=== PATIENT | male | born 1945 | race Caucasian/White ===

== ENCOUNTER 2021-01-17 13:46 | Inpatient (IN) ==
[2021-01-17] MEDS ORDERED: FAMOTIDINE 20MG IV PUSH 20 MG/5 ML SYR IV STA (14:22)
[2021-01-17] MEDS ORDERED: PANTOprazole 80 MG in DEXTROSE 5% 100 ML IV ONE (14:22)
--- NOTE | 2021-01-17 14:29 | Emergency Department Note ---
Impression & Plan GI bleed, Rectal bleeding, Weakness, Ureteral stone ED Provider Note NAME: DANGELO CUI AGE: 76 SEX: M : 1945 ARRIVES VIA: Walk-In INFORMANT: [Patient] ED PROVIDER(S): [King Draper MD] CHIEF COMPLAINT: Rectal bleeding HISTORY OF PRESENT ILLNESS: The patient is a 76-year-old male who has had 6 or 7 bouts of rectal bleeding today. He feels like he has to have a bowel movement and it is just blood. He does not have any rectal or abdominal pain. He is not short of breath, no chest pain. The patient has had issues like this before from diverticular bleeding. He has been transfused before but it was multiple years ago. The patient takes aspirin, no other stronger blood thinners. The patient does feel a bit weak. He has not had any fever. No syncope. He was in baseline health yesterday. REVIEW OF SYSTEMS: See HPI for pertinent positives and negatives. A total of ten systems were reviewed and were otherwise negative. PMHx/PSHx: See Below SOCIAL HISTORY: See Below. PHYSICAL EXAM: GENERAL: Patient is in no acute distress. HEENT: No acute trauma, normocephalic atraumatic, mucous membranes moist, no nasal congestion, no scleral icterus. NECK: No stridor, no adenopathy, no meningismus, trachea is midline. LUNGS: Clear to auscultation bilaterally, no wheeze, no rhonchi, breath sounds equal. HEART: Without murmurs gallops or rubs, regular rate and rhythm. ABDOMEN: Soft, nontender, bowel sounds positive, no hernias, no peritonitis. EXTREMITIES: No cyanosis or edema, full range of motion of all the joints without pain or difficulty, no signs for acute trauma. NEUROLOGIC: Oriented x 3, no acute motor or sensory deficits, no focal weakness. SKIN: No rash, no jaundice, no diaphoresis. Rectal: Dark maroon blood per rectum, heme positive, no external source of bleeding. DIFFERENTIAL DIAGNOSIS: Diverticulosis, AVM, coagulopathy, colitis, inflammatory bowel disease, malignancy, Gogo-Vu tear, esophagitis, peptic ulcer disease, variceal bleed, gastritis, epistaxis, fissure, hemorrhoids, as well as other pathologies. EMERGENCY DEPARTMENT COURSE/PROCEDURES: ECG: Indication was GI bleeding and weakness. The ECG shows a normal sinus rhythm with a rate of 64. There is an old anterior infarct. No ST elevation, no PVCs. The QTc is 408. Continuous Cardiac Monitoring: An order was placed for continuous cardiac monitoring. The monitor shows a rate of 77 with normal sinus rhythm. Critical Care Note: I have personally spent 43 minutes of critical care time in the direct management of this patient. This includes bedside care, interpretation of diagnostic studies, and testing, discussion with consultants, patient, and family members, and other required patient management activities. This 43 minutes is in excess of all separately billable procedures. MEDICAL DECISION MAKING: There is no leukocytosis. The patient does have a mild anemia but, the number is not anywhere near the value requiring transfusion. Hemoglobin had dropped 2- 3 points based on his last hemoglobin test. There was a normal platelet count. No coagulopathy. No significant electrolyte abnormality or kidney failure. No concerning liver enzyme elevation. ECG shows a sinus rhythm, no acute ischemia. Cardiac enzyme testing x1 is not consistent with acute cardiac injury. Covid testing returned negative. Abdominal and pelvis CT showed some hydronephrosis from a ureteral stone. No active source for bleeding. No bowel obstruction or acute surgical process by CT imaging. The patient received IV saline, he was given IV Protonix and IV Pepcid. He has been resting comfortably. Patient has dark blood per rectum. He is likely suffering from a lower GI bleed. He has had lower GI bleeding before from diverticuli. Given the findings, given his presentation, a hospital stay is warranted. I did speak with the patient and case management. The on-call hospitalist was consulted. 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 Diabetes mellitus, type 2 Diabetic neuropathy Diverticulitis HLD (hyperlipidemia) HTN (hypertension) Restless leg syndrome Squamous cell carcinoma of nose Surgical History History of total knee arthroplasty Bilateral Status post total shoulder arthroplasty Family History Other No pertinent family history Social History Smoking Status: Never smoker Hx Alcohol Use: Yes Alcohol type: beer Hx Substance Use: No Preferred Language: Lithuanian Communication Ability: Effective Organic Preparation Technician Required: No Beliefs That Will Affect Care: None marital status: Current Living Situation: Spouse Feels Safe at Home: Yes Assistive Devices: Glasses Allergies Allergies Allergy/AdvReac Type Severity Reaction Status Date / Time No Known Allergies Allergy Unverified 01/17/21 15:26 Home Meds Home Medications Medication Instructions Recorded Confirmed atorvastatin 20 mg tablet 40 mg PO HS 12/29/17 01/17/21 gabapentin 300 mg capsule 600 mg PO TID 12/29/17 01/17/21 magnesium oxide 400 mg (241.3 mg 400 mg PO QAM 12/29/17 01/17/21 magnesium) tablet (MgO) metformin 1,000 mg tablet 1,000 mg PO BIDM 12/29/17 01/17/21 metoprolol tartrate 25 mg tablet 12.5 mg PO BID 12/29/17 01/17/21 multivit with minerals-iron 18 1 tab PO QAM 12/29/17 01/17/21 mg-folic ac 400 mcg-vit K 25 mcg tablet (Multi-Day Plus Minerals) omega 7-mdn-lgp-fish oil 1,000 mg 1,000 mg PO BID 12/29/17 01/17/21 (120 mg-180 mg) capsule (Fish Oil) pantoprazole 40 mg tablet,delayed 40 mg PO BID 12/29/17 01/17/21 release (Protonix) pramipexole 0.25 mg tablet 0.25 mg PO HS 12/29/17 01/17/21 sertraline 50 mg tablet 50 mg PO HS 12/29/17 01/17/21 tamsulosin 0.4 mg capsule 0.4 mg PO QPM 12/29/17 01/17/21 insulin glargine 100 unit/mL 15 unit SUBCUT 07/01/19 01/17/21 subcutaneous solution latanoprost 0.005 % eye drops 1 drp OPHTHALMIC (EYE) HS 07/01/19 01/17/21 lisinopril 5 mg tablet 5 mg PO QAM 07/01/19 01/17/21 aspirin 81 mg tablet,delayed 81 mg PO QAM 01/17/21 01/17/21 release rosuvastatin 40 mg tablet 4 mg PO 01/17/21 01/17/21 Results & Data (ED) Vital Signs Vital Signs - 24 hr 01/17/21 13:57 01/17/21 14:22 01/17/21 14:52 Temperature 36.3 C L Temperature Source Oral Pulse Rate 77 61 Pulse Rate [Apical] 59 L Pulse Rhythm Regular Pulse Rhythm [Apical] Regular Pulse Strength [Apical] Normal Respiratory Rate 20 17 17 Respiratory Effort / Characteristics Non-Labored Spontaneous Non-Labored Spontaneous Respiratory Depth Normal Normal Respiratory Pattern Regular Blood Pressure 102/57 L Blood Pressure [Right Arm] 129/59 L Blood Pressure Mean 72 Blood Pressure Mean [Right Arm] 82 Blood Pressure Position Sitting Blood Pressure Position [Right Arm] Semi-fowlers Pulse Oximetry 93 96 96 Oxygen Delivery Method Room Air Room Air Room Air Sepsis Recent Fever Within 48 Hours No Sepsis New/Unexplained Change in Mental Status N/A Sepsis Action Taken by Nursing No Action Required 01/17/21 15:40 Temperature Temperature Source Pulse Rate Pulse Rate [Apical] 53 L Pulse Rhythm Pulse Rhythm [Apical] Pulse Strength [Apical] Respiratory Rate 26 H Respiratory Effort / Characteristics Respiratory Depth Respiratory Pattern Blood Pressure Blood Pressure [Right Arm] 156/64 H Blood Pressure Mean Blood Pressure Mean [Right Arm] 94 Blood Pressure Position Blood Pressure Position [Right Arm] Semi-fowlers Pulse Oximetry 94 Oxygen Delivery Method Room Air Sepsis Recent Fever Within 48 Hours Sepsis New/Unexplained Change in Mental Status Sepsis Action Taken by Care Home Medications Current Medication List: was personally reviewed by me Laboratory Data Attestation: I reviewed the patient's lab results. Result diagrams: 01/17/21 14:38 01/17/21 14:38 Lab Results 01/17/21 01/17/21 01/17/21 Range/Units 14:38 14:38 14:38 WBC 6.67 (4.8-10.8) K/uL RBC 4.16 L (4.7-6.1) M/uL Hgb 13.5 L (14.0-18.0) g/dL Hct 38.7 L (42-52) % MCV 93.0 (80-100) fL MCH 32.5 (25-34) pg MCHC 34.9 (32-36) g/dL RDW Std Deviation 47.0 H (36.4-46.3) fL RDW Coeff of Lachelle 13.9 (11.5-14.5) % Plt Count 175 (130-400) K/uL MPV 10.0 (7.4-10.4) fL Immature Gran % (Auto) 0.1 % Neut % (Auto) 56.4 % Lymph % (Auto) 34.6 % [place] % (Auto) 7.6 % Eos % (Auto) 1.2 % Baso % (Auto) 0.1 % Neut # (Auto) 3.75 (1.4-6.5) K/uL Lymph # (Auto) 2.31 (1.2-3.4) K/uL [place] # (Auto) 0.51 (0.11-0.59) K/uL Eos # (Auto) 0.08 (0-0.5) K/uL Baso # (Auto) 0.01 (0-0.2) K/uL Immature Gran # (Auto) 0.01 (0.00-0.02) K/uL PT 10.9 (9.0-12.0) Seconds INR 1.1 (0.9-1.1) APTT 28.7 (21.0-31.0) Seconds PTT Ratio 1.1 Sodium 141 (136-145) mmol/L Potassium 4.0 (3.5-5.1) mmol/L Chloride 111 H (98-107) mmol/L Carbon Dioxide 22 (21-32) mmol/L Anion Gap 8.0 (3-11) BUN 22 H (7-18) mg/dl Creatinine 0.96 (0.6-1.4) mg/dl Est Cr Clr Drug Dosing 79.5 ml/min Est GFR ( Amer) 89.3 ml/min Est GFR (Non-Af Amer) 77.0 ml/min BUN/Creatinine Ratio 22.9 H (10-20) Glucose 176 H (70-99) mg/dl Calcium 9.3 (8.5-10.1) mg/dl Total Bilirubin 0.6 (0.2-1) mg/dl AST 16 (15-37) U/L ALT 17 (12-78) U/L Alkaline Phosphatase 49 (45-117) U/L Troponin I < 0.015 (0-0.045) ng/ml Total Protein 7.5 (6.4-8.2) gm/dl Albumin 3.7 (3.4-5.0) gm/dl Globulin 3.8 (2.5-4.0) gm/dl Albumin/Globulin Ratio 1.0 (0.9-2) COVID-19 Eval Order SARS-CoV-2 (PCR) (Negative) Blood Type Antibody Screen 01/17/21 01/17/21 01/17/21 Range/Units 14:43 14:50 14:50 WBC (4.8-10.8) K/uL RBC (4.7-6.1) M/uL Hgb (14.0-18.0) g/dL Hct (42-52) % MCV (80-100) fL MCH (25-34) pg MCHC (32-36) g/dL RDW Std Deviation (36.4-46.3) fL RDW Coeff of Lachelle (11.5-14.5) % Plt Count (130-400) K/uL MPV (7.4-10.4) fL Immature Gran % (Auto) % Neut % (Auto) % Lymph % (Auto) % [place] % (Auto) % Eos % (Auto) % Baso % (Auto) % Neut # (Auto) (1.4-6.5) K/uL Lymph # (Auto) (1.2-3.4) K/uL [place] # (Auto) (0.11-0.59) K/uL Eos # (Auto) (0-0.5) K/uL Baso # (Auto) (0-0.2) K/uL Immature Gran # (Auto) (0.00-0.02) K/uL PT (9.0-12.0) Seconds INR (0.9-1.1) APTT (21.0-31.0) Seconds PTT Ratio Sodium (136-145) mmol/L Potassium (3.5-5.1) mmol/L Chloride (98-107) mmol/L Carbon Dioxide (21-32) mmol/L Anion Gap (3-11) BUN (7-18) mg/dl Creatinine (0.6-1.4) mg/dl Est Cr Clr Drug Dosing ml/min Est GFR ( Amer) ml/min Est GFR (Non-Af Amer) ml/min BUN/Creatinine Ratio (10-20) Glucose (70-99) mg/dl Calcium (8.5-10.1) mg/dl Total Bilirubin (0.2-1) mg/dl AST (15-37) U/L ALT (12-78) U/L Alkaline Phosphatase (45-117) U/L Troponin I (0-0.045) ng/ml Total Protein (6.4-8.2) gm/dl Albumin (3.4-5.0) gm/dl Globulin (2.5-4.0) gm/dl Albumin/Globulin Ratio (0.9-2) COVID-19 Eval Order Covid19 at [facility] SARS-CoV-2 (PCR) NEGATIVE (Negative) Blood Type A Positive Antibody Screen NEGATIVE Administered Medications Discontinued Medications Sodium Chloride (Nss) 500 mls @ 999 mls/hr IV .Q31M EVA Stop: 01/17/21 15:00 Last Infusion: 01/17/21 15:54 Dose: 0 mls/hr Documented by: [id number] Admin: 01/17/21 15:10 Dose: 999 mls/hr Documented by: [id number] Pantoprazole Sodium 80 mg/ (Dextrose) 100 mls @ 400 mls/hr IV NOW ONE Stop: 01/17/21 14:36 Last Infusion: 01/17/21 15:25 Dose: 0 mls/hr Documented by: [id number] Admin: 01/17/21 15:05 Dose: 400 mls/hr Documented by: [id number] Famotidine (Pepcid 20mg Iv Push) 20 mg in 5 mls @ 2.5 mls/min IV NOW STA Stop: 01/17/21 14:23 Last Admin: 01/17/21 14:58 Dose: 2.5 mls/min Documented by: [id number] Ioversol (Optiray 320 100ml) 93 ml IV ONCE ONE Stop: 01/17/21 15:28 Last Admin: 01/17/21 15:28 Dose: 93 ml Documented by: [id number] Imaging Data Radiologist's Impression: Abdomen/Pelvis CT 01/17/21 14:22 CT SCAN OF THE ABDOMEN AND PELVIS WITH IV CONTRAST CLINICAL HISTORY: GI bleeding. COMPARISON STUDY: Abdominal CT dated 12/29/2017. TECHNIQUE: Following the IV administration of 93 cc of Optiray 320, CT scan of the abdomen and pelvis is performed from the lung bases to the proximal femora. Images are reviewed in the axial, sagittal, and coronal planes. IV contrast was administered without complication. A dose lowering technique was utilized adhering to the principles of ALARA. CT DOSE: 777.30 mGycm FINDINGS: Lung bases: The heart is normal in size and without pericardial effusion. The coronary arteries are densely calcified. There is a small hiatal hernia. The lung bases are clear noting bibasilar scarring/atelectasis. Liver: The contrast-enhanced liver is normal in size, contour, and attenuation. There is no intrahepatic biliary ductal dilatation. The hepatic veins and portal veins are patent. Gallbladder: The gallbladder is filled with gallstones. There is no CT evidence of acute cholecystitis. Spleen: Normal in size and attenuation. Pancreas: Moderately atrophic and grossly unremarkable. Adrenal glands: Unremarkable. Kidneys: The contrast enhanced kidneys demonstrate mild cortical atrophy. There is a 2.5 x 1.1 x 1.1 cm obstructing calculus in the left proximal ureter seen on image #247. This is located at the level of L3 and causes moderate to severe left-sided hydroureteronephrosis. There are least 2 additional 5 mm nonobstructing calculi in the left lower pole. The kidneys enhance symmetrically. There is no right-sided hydronephrosis. Abdominal vasculature: There is advanced atherosclerotic calcification and mild ectasia of the abdominal aorta. Bowel: Question irregular wall thickening of the distal stomach seen on axial image #131. There is advanced colonic diverticulosis without CT evidence of acute diverticulitis. No bowel obstruction is seen. Mild fecal retention is seen throughout the colon. Duodenal diverticula are incidentally noted. The appendix is well-visualized and normal. Peritoneum: There is no intraperitoneal free air or abdominal ascites. There is a small fat-containing umbilical hernia. Lymphadenopathy: None. Pelvic viscera: The prostate gland is enlarged and heterogeneous noting median lobe hypertrophy. A right inguinal hernia contains a small segment of the bladder. The bladder is otherwise normal as imaged. Skeletal structures: The skeletal structures are osteopenic. There is mild to moderate lumbosacral spondylosis. No lytic or blastic lesions are seen. IMPRESSION: 1. There is a 2.5 cm obstructing calculus in the left proximal ureter. This causes moderate to severe hydroureteronephrosis. 2. Additional small nonobstructing calculi are seen in the left lower pole. 3. Cholelithiasis without CT evidence of acute cholecystitis. 4. Advanced colonic diverticulosis without CT evidence of acute diverticulitis. 5. A right inguinal hernia contains a small segment of the bladder. 6. Question irregular wall thickening of the distal stomach. This is not well assessed by CT and can be further evaluated with endoscopy if clinically warranted. 7. Additional findings as above. ACT 112: Negative or not required by law. Electronically signed by: King Soriano M.D. 01/17/2021 3:48 PM Discharge Plan Visit Data Chief Complaint: Rectal Bleed Stated Complaint: RECTAL BLEEDING ED Provider: King Draper Discharge Problem: GI bleed, Rectal bleeding, Weakness, Ureteral stone Patient Disposition: Admitted As Inpatient Condition: Fair Forms Stand Alone Forms: [facility] Syndiant Prescriptions Prescriptions: No Action pramipexole 0.25 mg Tablet 0.25 mg PO HS RF: 0 atorvastatin 20 mg Tablet 40 mg PO HS RF: 0 tamsulosin 0.4 mg Capsule 0.4 mg PO QPM RF: 0 sertraline 50 mg Tablet 50 mg PO HS RF: 0 magnesium oxide [MgO] 400 mg (241.3 mg magnesium) Tablet 400 mg PO QAM RF: 0 metformin 1,000 mg Tablet 1,000 mg PO BIDM RF: 0 gabapentin 300 mg Capsule 600 mg PO TID RF: 0 metoprolol tartrate 25 mg Tablet 12.5 mg PO BID RF: 0 pantoprazole [Protonix] 40 mg Tablet,Delayed Release (Dr/Ec) 40 mg PO BID RF: 0 omega 1-zro-kqt-fish oil [Fish Oil] 1,000 mg (120 mg-180 mg) Capsule 1,000 mg PO BID RF: 0 Multi-Day Plus Minerals 18 mg iron-400 mcg-25 mcg Tablet 1 tab PO QAM RF: 0 insulin glargine 100 unit/mL Solution 15 unit SUBCUT HS RF: 0 lisinopril 5 mg Tablet 5 mg PO QAM RF: 0 latanoprost 0.005 % Drops 1 drp OPHTHALMIC (EYE) HS RF: 0 aspirin 81 mg Tablet,Delayed Release (Dr/Ec) 81 mg PO QAM RF: 0 rosuvastatin 40 mg tablet 4 mg PO HS RF: 0 Referrals Referrals: Sakshi Barros DO [Primary Care Provider] -
[2021-01-17] MEDS ORDERED: SODIUM CHLORIDE 0.9% 500 ML IV SCH (14:30)
[2021-01-17 14:56] LABS: Basophils # (auto) 0.01 K/uL (0-0.2); Basophils % (auto) 0.1 %; Eosinophils # (auto) 0.08 K/uL (0-0.5); Eosinophils % (auto) 1.2 %; Hematocrit (blood only) 38.7 % (42-52); Hemoglobin 13.5 g/dL (14.0-18.0); Immature Granulocytes # (auto) 0.01 K/uL (0.00-0.02); Immature Granulocytes % (auto) 0.1 %; Lymphocytes # (auto) 2.31 K/uL (1.2-3.4); Lymphocytes % (auto) 34.6 %; Mean Corpuscular Hemoglobin 32.5 pg (25-34); Mean Corpuscular Hgb Conc 34.9 g/dL (32-36); Monocytes # (auto) 0.51 K/uL (0.11-0.59); Monocytes % (auto) 7.6 %; Neutrophils # (auto) 3.75 K/uL (1.4-6.5); Neutrophils % (auto) 56.4 %; Platelet Count 175 K/uL (130-400); RDW Coefficient of Variation 13.9 % (11.5-14.5); Red Blood Count 4.16 M/uL (4.7-6.1); White Blood Count 6.67 K/uL (4.8-10.8)
[2021-01-17 15:13] LABS: INR 1.1 (0.9-1.1); Partial Thromboplastin Ratio 1.1; Partial Thromboplastin Time 28.7 Seconds (21.0-31.0); Prothrombin Time 10.9 Seconds (9.0-12.0)
[2021-01-17 15:15] LABS: Alanine Aminotransferase 17 U/L (12-78); Albumin Level 3.7 gm/dl (3.4-5.0); Aspartate Aminotransferase 16 U/L (15-37); BUN Creatinine Ratio 22.9 (10-20); Blood Urea Nitrogen 22 mg/dl (7-18); Calcium 9.3 mg/dl (8.5-10.1); Carbon Dioxide 22 mmol/L (21-32); Chloride 111 mmol/L (98-107); Creatinine Clr Calc Pharmacy 79.5 ml/min; Est GFR (African American) 89.3 ml/min; Glucose 176 mg/dl (70-99); Sodium 141 mmol/L (136-145)
[2021-01-17 15:20] LABS: Alkaline Phosphatase 49 U/L (45-117); Bilirubin,Total 0.6 mg/dl (0.2-1); Globulin 3.8 gm/dl (2.5-4.0); Total Protein 7.5 gm/dl (6.4-8.2); Troponin I < 0.015 ng/ml (0-0.045)
[2021-01-17] MEDS ORDERED: OPTIRAY 320 100ml IV ONE (15:27)
--- NOTE | 2021-01-17 15:50 | CT Scan Report ---
CT SCAN OF THE ABDOMEN AND PELVIS WITH IV CONTRAST CLINICAL HISTORY: GI bleeding. COMPARISON STUDY: Abdominal CT dated 12/29/2017. TECHNIQUE: Following the IV administration of 93 cc of Optiray 320, CT scan of the abdomen and pelvi s is performed from the lung bases to the proximal femora. Images are reviewed in the axial, sagittal , and coronal planes. IV contrast was administered without complication. A dose lowering technique wa s utilized adhering to the principles of ALARA. CT DOSE: 777.30 mGycm FINDINGS: Lung bases: The heart is normal in size and without pericardial effusion. The coronary arteries are d ensely calcified. There is a small hiatal hernia. The lung bases are clear noting bibasilar scarring/ atelectasis. Liver: The contrast-enhanced liver is normal in size, contour, and attenuation. There is no intrahepa tic biliary ductal dilatation. The hepatic veins and portal veins are patent. Gallbladder: The gallbladder is filled with gallstones. There is no CT evidence of acute cholecystiti s. Spleen: Normal in size and attenuation. Pancreas: Moderately atrophic and grossly unremarkable. Adrenal glands: Unremarkable. Kidneys: The contrast enhanced kidneys demonstrate mild cortical atrophy. There is a 2.5 x 1.1 x 1.1 cm obstructing calculus in the left proximal ureter seen on image #247. This is located at the level of L3 and causes moderate to severe left-sided hydroureteronephrosis. There are least 2 additional 5 mm nonobstructing calculi in the left lower pole. The kidneys enhance symmetrically. There is no righ t-sided hydronephrosis. Abdominal vasculature: There is advanced atherosclerotic calcification and mild ectasia of the abdomi nal aorta. Bowel: Question irregular wall thickening of the distal stomach seen on axial image #131. There is ad vanced colonic diverticulosis without CT evidence of acute diverticulitis. No bowel obstruction is se en. Mild fecal retention is seen throughout the colon. Duodenal diverticula are incidentally noted. T he appendix is well-visualized and normal. Peritoneum: There is no intraperitoneal free air or abdominal ascites. There is a small fat-containin g umbilical hernia. Lymphadenopathy: None. Pelvic viscera: The prostate gland is enlarged and heterogeneous noting median lobe hypertrophy. A ri ght inguinal hernia contains a small segment of the bladder. The bladder is otherwise normal as image d. Skeletal structures: The skeletal structures are osteopenic. There is mild to moderate lumbosacral sp ondylosis. No lytic or blastic lesions are seen. IMPRESSION: 1. There is a 2.5 cm obstructing calculus in the left proximal ureter. This causes moderate to severe hydroureteronephrosis. 2. Additional small nonobstructing calculi are seen in the left lower pole. 3. Cholelithiasis without CT evidence of acute cholecystitis. 4. Advanced colonic diverticulosis without CT evidence of acute diverticulitis. 5. A right inguinal hernia contains a small segment of the bladder. 6. Question irregular wall thickening of the distal stomach. This is not well assessed by CT and can be further evaluated with endoscopy if clinically warranted. 7. Additional findings as above. ACT 112: Negative or not required by law. Electronically signed by: King Soriano M.D. 01/17/2021 3:48 PM
--- NOTE | 2021-01-17 15:54 | History & Physical Report ---
Date of Service January 17, 2021 Assessment & Plan (1) GI bleed: Plan: - Admit to med surg with tele - Likely to be diverticular with the patients history of bleeds in the past - CT abd reviewed showing diverticulosis without diverticulitis, also noted to be a 2.5 cm stone in the left ureter, as well as 2 other less than 5 mm stones. - Hbg stable at 13, monitor H&H q6H, next draw at 2000, no need for transfusion unless drops to 7 or pt is symptomatic - Protonix IV BID - GI consulted - Allow clear liquid diet for now, NSS at 80 ml/hr got 500 cc in the ER. - Covid-19 negative on admission - BP stable at 156/64, pulse high 50s at bedside. No cardiac complaints. (2) Diverticulosis of intestine with bleeding: Plan: - hx of such few years ago where he required blood transfusion, per pt had outpatient colonoscopy at [facility] after that in Dec 2017, unable to access [employer] EMR link currently to see those results. (3) Alberto's esophagus: Plan: - hx of such (4) BPH (benign prostatic hyperplasia): Plan: - cont flomax - Noted CT findings of left sided 2.5 cm ureter stone causing moderate to severe hydroureteronephrosis - Urology consulted for evaluation if needs stent placed. - Cr 0.96 and BUN 22- follow with am labs (5) HTN (hypertension): Plan: - Continue metoprolol 25 mg QAM , lisinopril 5 mg daily, hold baby aspirin (6) HLD (hyperlipidemia): Plan: - Cont rosuvastatin 40 mg daily (7) Diabetes mellitus type 2 with complications: Plan: - Will reduce lantus to 7 U HS tonight while NPO, cover with ISS with accuchecks achs - Check A1C with am labs (8) Diabetic neuropathy: Plan: - Hx of such (9) Restless leg syndrome: Plan: - Cont primapaxel (10) Depression with anxiety: Plan: - cont sertraline DVT ppx: teds, scds CODE: Full Dispo: From home, likely to remain in the hospital x 1-2 days History of Present Illness Primary Care Provider: Sakshi Barros, DO This is a 76-year-old male with PMHx of diverticulitis, GI bleed, Alberto's esophagus, DM type II, HTN, HLD, BPH, diabetic neuropathy, restless leg syndrome, depression with anxiety who presents with acute onset of GI bleeding. He reports he woke this morning and felt that he had a to have a bowel movement, and realized that it was full of grossly dark/bright red blood. Throughout the day he has had 6-7 episodes of this. He reports feeling slightly lightheaded and dizzy prior to coming to the ER however after receiving 500 cc NSS he feels improved now. Denies any changes in his diet. He denies ever having abdominal pain, no nausea or vomiting. He reports no urinary complaints, urine has been clear yellow and without hematuria. No fevers, chills or sweats. He lives at home with his . Patient reports taking all his normally scheduled morning medications today. Last time he ate was breakfast today. Allergies Allergy/AdvReac Type Severity Reaction Status Date / Time No Known Allergies Allergy Unverified 01/17/21 15:26 Home Medications Medication Instructions Recorded Confirmed Type gabapentin 300 mg capsule 600 mg PO TID 12/29/17 01/17/21 History magnesium oxide 400 mg (241.3 mg 400 mg PO QAM 12/29/17 01/17/21 History magnesium) tablet (MgO) metformin 1,000 mg tablet 1,000 mg PO BIDM 12/29/17 01/17/21 History metoprolol tartrate 25 mg tablet 25 mg PO DAILY 12/29/17 01/17/21 History multivit with minerals-iron 18 1 tab PO QAM 12/29/17 01/17/21 History mg-folic ac 400 mcg-vit K 25 mcg tablet (Multi-Day Plus Minerals) omega 4-uyq-coa-fish oil 1,000 mg 1,000 mg PO BID 12/29/17 01/17/21 History (120 mg-180 mg) capsule (Fish Oil) pantoprazole 40 mg tablet,delayed 40 mg PO BID 12/29/17 01/17/21 History release (Protonix) pramipexole 0.25 mg tablet 0.25 mg PO HS 12/29/17 01/17/21 History sertraline 50 mg tablet 50 mg PO HS 12/29/17 01/17/21 History tamsulosin 0.4 mg capsule 0.4 mg PO QPM 12/29/17 01/17/21 History insulin glargine 100 unit/mL 15 unit SUBCUT HS 07/01/19 01/17/21 History subcutaneous solution latanoprost 0.005 % eye drops 1 drp OPHTHALMIC (EYE) HS 07/01/19 01/17/21 History lisinopril 5 mg tablet 5 mg PO QAM 07/01/19 01/17/21 History aspirin 81 mg tablet,delayed 81 mg PO QAM 01/17/21 01/17/21 History release rosuvastatin 40 mg tablet 4 mg PO HS 01/17/21 01/17/21 History Past Med/Surg History Medical History Ablerto's esophagus BPH (benign prostatic hyperplasia) 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 Diabetes mellitus, type 2 Diabetic neuropathy Diverticulitis HLD (hyperlipidemia) HTN (hypertension) Restless leg syndrome Squamous cell carcinoma of nose Surgical History History of total knee arthroplasty Bilateral Status post total shoulder arthroplasty Family History Other No pertinent family history Social History Smoking Status: Never smoker Hx Alcohol Use: Yes Alcohol type: beer Hx Substance Use: No Preferred Language: Cuban Communication Ability: Effective Wireless Internet Installer Required: No Beliefs That Will Affect Care: None marital status: Current Living Situation: Spouse Feels Safe at Home: Yes Assistive Devices: Glasses Review of Systems Review of Systems: Constitutional: No fever, chills, sweats, fatigue or weakness Eyes: No diplopia, no changes in vision ENT: No sore throat, tinnitus, or trouble swallowing Respiratory: No shortness of breath, No dyspnea at rest or on exertion, no cough or sputum Cardiovascular: No chest pain, palpitations, or flutter Abdomen: As per HPI. Bright red blood x6-7 bowel movements, no pain, No constipation, No diarrhea, No nausea, No vomiting Musculoskeletal: No calf pain, No joint pain, No swelling Genitourinary : No dysuria or urinary frequency, No hematuria Neurologic: No numbness/tingling, no difficulty with ambulation, no sensory or motor deficits Psychiatric: No depression or anxiety symptoms Endocrine: No fatigue, No weight changes Integumentary: No itch, No rash Physical Exam Physical Exam: General: awake, alert, no apparent distress Head: Normocephalic, atraumatic ENT: PERRL, EOMI, no pharyngeal exudate, mucous membranes moist Chest: Clear to auscultation, on room air, no adventitious breath sounds Cardiac: Regular rate and rhythm, no murmur, no JVD, normal peripheral pulses, good capillary refill Abdominal: NABS x 4 quadrants, soft, nondistended, nontender to palpation, no rebound or guarding Extremities: Normal inspection, no peripheral edema or erythema, calfs nontender to palpation Psych: Normal mood and affect Neuro: AAO x 3, strength intact bilaterally and rated 5/5, no motor deficits, speech is clear, no peripheral sensory deficits Results & Data Results & Data ([facility]) Vital Signs (Past 12 Hours) Vital Signs Temp Pulse Pulse Resp BP BP Pulse Ox 01/17/21 14:52 59 L 17 129/59 L 96 01/17/21 14:22 61 17 96 01/17/21 13:57 36.3 C L 77 20 102/57 L 93 Diagnostic Findings Abdomen/Pelvis CT 01/17/21 14:22 CT SCAN OF THE ABDOMEN AND PELVIS WITH IV CONTRAST CLINICAL HISTORY: GI bleeding. COMPARISON STUDY: Abdominal CT dated 12/29/2017. TECHNIQUE: Following the IV administration of 93 cc of Optiray 320, CT scan of the abdomen and pelvis is performed from the lung bases to the proximal femora. Images are reviewed in the axial, sagittal, and coronal planes. IV contrast was administered without complication. A dose lowering technique was utilized adhering to the principles of ALARA. CT DOSE: 777.30 mGycm FINDINGS: Lung bases: The heart is normal in size and without pericardial effusion. The coronary arteries are densely calcified. There is a small hiatal hernia. The lung bases are clear noting bibasilar scarring/atelectasis. Liver: The contrast-enhanced liver is normal in size, contour, and attenuation. There is no intrahepatic biliary ductal dilatation. The hepatic veins and portal veins are patent. Gallbladder: The gallbladder is filled with gallstones. There is no CT evidence of acute cholecystitis. Spleen: Normal in size and attenuation. Pancreas: Moderately atrophic and grossly unremarkable. Adrenal glands: Unremarkable. Kidneys: The contrast enhanced kidneys demonstrate mild cortical atrophy. There is a 2.5 x 1.1 x 1.1 cm obstructing calculus in the left proximal ureter seen on image #247. This is located at the level of L3 and causes moderate to severe left-sided hydroureteronephrosis. There are least 2 additional 5 mm nonobstructing calculi in the left lower pole. The kidneys enhance symmetrical ly. There is no right-sided hydronephrosis. Abdominal vasculature: There is advanced atherosclerotic calcification and mild ectasia of the abdominal aorta. Bowel: Question irregular wall thickening of the distal stomach seen on axial image #131. There is advanced colonic diverticulosis without CT evidence of acute diverticulitis. No bowel obstruction is seen. Mild fecal retention is seen throughout the colon. Duodenal diverticula are incidentally noted. The appendix is well-visualized and normal. Peritoneum: There is no intraperitoneal free air or abdominal ascites. There is a small fat-containing umbilical hernia. Lymphadenopathy: None. Pelvic viscera: The prostate gland is enlarged and heterogeneous noting median lobe hypertrophy. A right inguinal hernia contains a small segment of the bladder. The bladder is otherwise normal as imaged. Skeletal structures: The skeletal structures are osteopenic. There is mild to moderate lumbosacral spondylosis. No lytic or blastic lesions are seen. IMPRESSION: 1. There is a 2.5 cm obstructing calculus in the left proximal ureter. This causes moderate to severe hydroureteronephrosis. 2. Additional small nonobstructing calculi are seen in the left lower pole. 3. Cholelithiasis without CT evidence of acute cholecystitis. 4. Advanced colonic diverticulosis without CT evidence of acute diverticulitis. 5. A right inguinal hernia contains a small segment of the bladder. 6. Question irregular wall thickening of the distal stomach. This is not well assessed by CT and can be further evaluated with endoscopy if clinically warranted. 7. Additional findings as above. ACT 112: Negative or not required by law. Electronically signed by: Kign Soriano M.D. 01/17/2021 3:48 PM ECG Additional Comments: 17-JAN-2021 14:20:10 [facility]-EDSTAT ROUTINE RETRIEVAL Normal sinus rhythm Cannot rule out Anterior infarct , age undetermined Abnormal ECG When compared with ECG of 29-DEC-2017 11:31, Borderline Criteria for Anterior infarct now present Confirmed by Daryl Galaviz ([id number]) on 01/17/2021 4:07:15 PM 25mm/s 10mm/mV 150Hz 9.0.9 12SL 241 CARA: 13 Confirmed By: Daryl Galaviz Vent. rate 64 BPM MA interval 172 ms QRS duration 82 ms QT/QTc 396/408 ms Code Status & VTE Plan Code Status Full code Supervising Physician Co-Signing Physician Notes 76-year-old male with past history of diverticular bleed, diverticulitis, Alberto's esophagus, DM type II, HTN, HLD, BPH, diabetic neuropathy, restless leg syndrome, depression with anxiety presented 01/17 with multiple episodes of bright red blood per rectum starting today morning. Consult GI/n.p.o./IV fluids/blood transfusion/trend hemoglobin. GI aware. Upon examination: GENERAL: Alert and oriented x3. NAD, on RA. HEENT: No pallor, no icterus. Pupils equal, round and reactive to light. Oral mucosa moist. NECK: No JVD, no neck masses. HEART: S1 and S2 heard. Regular rate and rhythm. No murmur, no gallop. RESPIRATORY SYSTEM: Normal AP diameter. No accessory muscle use. No wheezing, no crackles. ABDOMEN: Soft, bowel sounds present, discomfort in the lower belly upon deep palpation, no distention. CENTRAL NERVOUS SYSTEM: Alert and oriented x3. No facial droop. Speech is clear. Obeys simple commands. Moves extremities. EXTREMITIES: No edema, no erythema seen. I have seen and examined the patient and have discussed the case with the provider above. I agree with the assessment and plan as stated. (1) GI bleed GI bleed type/associated pathology: diverticulitis Qualified Code(s): K57.93 - Diverticulitis of intestine, part unspecified, without perforation or abscess with bleeding
--- NOTE | 2021-01-17 16:07 | Electrocardiogram Report ---
Test Reason : Blood Pressure : / mmHG Vent. Rate : 064 BPM Atrial Rate : 064 BPM P-R Int : 172 ms QRS Dur : 082 ms QT Int : 396 ms P-R-T Axes : 061 012 078 degrees QTc Int : 408 ms Normal sinus rhythm Cannot rule out Anterior infarct , age undetermined Abnormal ECG When compared with ECG of 29-DEC-2017 11:31, Borderline Criteria for Anterior infarct now present Confirmed by Daryl Galaviz ([id number]) on 01/17/2021 4:07:15 PM Referred By: Confirmed By:Daryl Galaviz
[2021-01-17] MEDS ORDERED: SODIUM CHLORIDE 0.9% 1000ML 1,000 ML IV ONE (18:46)
[2021-01-17 19:08] LABS: Hematocrit (blood only) 32.4 % (42-52); Hemoglobin 11.2 g/dL (14.0-18.0)
[2021-01-17] MEDS ORDERED: SODIUM CHLORIDE 0.9% 250 ML IV PRN (19:11)
--- NOTE | 2021-01-17 20:16 | Communication Note ---
Date of Service: January 17, 2021 Dr. Conway (GI specialist human resources communications manager) requested undersigned to contact [facility] to transfer patient for potential need for Interventional Radiology services for patient's LGIB likely secondary to diverticular bleed. Dr. Conway recommends GoLYTELY prep for possible colonoscopy in a.m. if patient not transferred. Case discussed with Dr. Wilcox ([facility] [place] communications manager[place] She does not feel patient transfer warranted for now. Recommends colonoscopy at [facility] in a.m. as discussed with Dr. Conway. Patient updated of plan of care.
[2021-01-17] MEDS ORDERED: ONDANSETRON INJ 2 MG/ML 2 ML VIAL IV PRN (21:19)
[2021-01-17] MEDS ORDERED: GLUCOSE 10 TABS/TUBE PO PRN (21:19)
[2021-01-17] MEDS ORDERED: DEXTROSE 50% 50 ML SYRINGE IV PRN (21:19)
[2021-01-17] MEDS ORDERED: GLUCAGON FOR INJ 1 MG VIAL SQ PRN (21:19)
[2021-01-17] MEDS ORDERED: GLUCOSE 40% GEL 15 GM TUBE PO PRN (21:19)
[2021-01-17] MEDS ORDERED: CARBOHYDRATES FOR HYPOGLYCEMIA PO PRN (21:19)
[2021-01-17] MEDS ORDERED: LAVAGE SOLUTION 4000ML PO SCH (22:00)
[2021-01-17] MEDS: INSULIN ASPART 100 UNITS/ML 3 ML PEN SC SCH (22:06)
[2021-01-17] MEDS: LATANOPROST 0.005% OP SOLN 2.5 ML BTL OP SCH (22:20)
[2021-01-17] MEDS: PRAMIPEXOLE DIHYDROCHLO 0.25 MG TAB PO SCH (22:20)
[2021-01-17] MEDS: INSULIN GLARGINE SOLOSTAR 100 UNITS/ML 3 ML PEN SQ SCH (22:20)
[2021-01-17] MEDS: PANTOprazole 40 MG in SYRINGE 0 ML IV SCH (22:20)
[2021-01-17] MEDS: SODIUM CHLORIDE 0.9% 1000ML 1,000 ML IV SCH (22:29)
--- NOTE | 2021-01-17 23:37 | Emergency Department Note ---
Impression & Plan GI bleed, Rectal bleeding, Weakness, Ureteral stone, Acute hypotension ED Provider Note NAME: DANGELO CUI AGE: 76 SEX: M : 1945 ARRIVES VIA: Walk-In INFORMANT: Patient ED PROVIDER(S): Brice Porras DO CHIEF COMPLAINT: Acut Gi bleed HPI: Patient is a 76-year-old male who presented to the ER for dark blood per rectum associate with bright red blood which started this morning. He was initially seen and evaluated by Dr. Draper. He had a CT and blood work performed and was admitted to the hospitalist. While the patient was resting in the ER and admitted to the hospital service and was notified by the nurse that Dr. Conway was on the phone Keira And wanted to speak with a doctor. At this point I was informed that the patient was hypotensive and had been hypotensive for nearly an hour with systolic pressures in the 70s to 80s. ROS: See above HPI for pertinent positives & negatives. A total of 10 systems reviewed and were otherwise negative. PAST MEDICAL HISTORY:See Below PAST SURGICAL HISTORY:See Below FAMILY HISTORY:See Below SOCIAL HISTORY:See Below HOME MEDICATIONS:See Below ALLERGIES:See Below VITALS:See Below PHYSICAL EXAMINATION: GENERAL: Lying in bed, ill-appearing, disheveled, pale EYE EXAM: normal conjunctiva. OROPHARYNX: mucous membranes are dry NECK: supple, no nuchal rigidity, no adenopathy, non-tender LUNGS: Clear to auscultation. Normal chest wall mechanics HEART: no murmurs, S1 normal and S2 normal ABDOMEN: abdomen soft, non-tender, normo-active bowel sounds, no masses, no rebound or guarding. UPPER EXTREMITIES: upper extremities are grossly normal. LOWER EXTREMITIES: No pitting edema. NEURO EXAM: Normal sensorium, cranial nerves II-XII grossly intact, normal speech, no gross weakness of arms, no gross weakness of legs. MEDICAL DECISION MAKING: Keira called GI per the request of Dr. Valadez from the hospitalist service to see if they wanted to do anything differently. Dr. Conway recommended transferring for possible IR if possible. Did not believe he would scope at this time as the patient was too unstable. At this point I evaluate the patient at bedside please see my exam. Hospitalist was called overhead emergently to the bedside. They placed another 18-gauge IV. Unable to obtain any additional IVs. Patient was bleeding every 15 minutes with large bloody bowel movements. patient at this time had 220s and 118. We called down for emergent uncrossed blood. I placed the order to transfuse. Patient had a large bloody bowel movement and nearly passed out. Pressures remained in the 80s even after a bolus of IV fluids. Patient was taken emergently to a 1. Did discuss with Dr. Valadez and eventually Dr. Suarez present at the bedside. They both spoke with Dr. Conway. They called [facility] to transfer. I placed a central line in the right groin. Pat ient was given 2 and half units of PRBCs while in the ER. Only anticoagulation was aspirin. Pressures trended out of the 80s to the low 100s. He stabilized. They eventually decided per nursing to keep him here. I did also attempt to notify the ICU but they were in a code when this occurred. Triage Nursing notes reviewed. Limited review of prior medical records performed Vital Signs: reviewed and remarkable for hypotension ER treatment provided: See below Diagnostics interpreted by me: Laboratory studies: As stated above and show below. Imaging studies: See below Consultation(s): Discussed with Dr. Conway as stated above as well as Dr. Valadez and Dr. Suarez both presented to bedside. Procedures: PROCEDURE NOTE - Central Line Insertion - Ultrasound Guided PRIOR TO PROCEDURE: Consent: Discussion was PT held with the patient concerning central line. The risks and benefits were explained with possible risks to include bleeding, pain, pneumothorax, hemothorax, pulmonary contusion, pulmonary laceration, and infection. The patient freely consented. The patient was evaluated prior to the procedure. The patient was identified and the procedure verified as central line insertion. A Time Out was held and the following information confirmed. Verify Correct Patient: Yes Verify Correct Site: Yes Availability of Necessary Equipment: Yes PROCEDURE NOTE: Procedure: Central Line Inserting Clinician: Brice Porras DO. Guide-wire was removed, examined and is intact Complication/Corrective Action: none Estimated Blood Loss: 5 mls US guided line placement: Yes I have reviewed and educated the patient and or family regarding the benefits and risks of central line insertion, and I have reviewed the potential complications including infection - yes CENTRAL LINE BUNDLE: Skin Prep: Chlorhexidine/alcohol Barriers Used: Mask: yes Sterile gown: yes Large sterile drape: yes Cap: yes Sterile gloves: yes Insertion Status: new site Indications - include all that apply: Hypotensive GI bleed Placement Conditions: Emergent Site: Femoral Side: R Number of lumen(s): 3 Length of catheter inserted into patient: 18 centimeters Anesthesia: local Number of Needle Passes: 1 Radiological confirmation: Yes I performed the procedure. Critical Care: I have personally spent 80 minutes of critical care time in the direct management of this patient. This includes bedside care, interpretation of diagnostic studies, and testing, discussion with consultants, patient, and family members, and other required patient management activities. This 80 minutes is in excess of all separately billable procedures. Past Med/Surg History Medical History (Updated 01/17/21 @ 23:36 by Dung Gamble PA-C) Alberto's esophagus BPH (benign prostatic hyperplasia) 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 Diabetes mellitus, type 2 Diabetic neuropathy Diverticulitis HLD (hyperlipidemia) HTN (hypertension) Restless leg syndrome Squamous cell carcinoma of nose Surgical History History of total knee arthroplasty Bilateral Status post total shoulder arthroplasty Family History Other No pertinent family history Social History Smoking Status: Former smoker Smoking End Date: 1989; Second Hand Exposure: No; Tobacco Cessation Education Requested by Patient: No Hx Alcohol Use: Yes Alcohol type: beer Hx Substance Use: No Preferred Language: Danish Communication Ability: Effective Quality Assurance Consultant Required: No Beliefs That Will Affect Care: None marital status: Current Living Situation: Spouse Other Information That Helps Us Care for You: No Feels Safe at Home: Yes Safety Concerns: Feels Safe At This Time Assistive Devices: Glasses Allergies Allergies Allergy/AdvReac Type Severity Reaction Status Date / Time No Known Allergies Allergy Unverified 01/17/21 15:26 Home Meds Home Medications Medication Instructions Recorded Confirmed gabapentin 300 mg capsule 600 mg PO TID 12/29/17 01/17/21 magnesium oxide 400 mg (241.3 mg 400 mg PO QAM 12/29/17 01/17/21 magnesium) tablet (MgO) metformin 1,000 mg tablet 1,000 mg PO BIDM 12/29/17 01/17/21 metoprolol tartrate 25 mg tablet 25 mg PO DAILY 12/29/17 01/17/21 multivit with minerals-iron 18 1 tab PO QAM 12/29/17 01/17/21 mg-folic ac 400 mcg-vit K 25 mcg tablet (Multi-Day Plus Minerals) omega 5-olp-wyh-fish oil 1,000 mg 1,000 mg PO BID 12/29/17 01/17/21 (120 mg-180 mg) capsule (Fish Oil) pantoprazole 40 mg tablet,delayed 40 mg PO BID 12/29/17 01/17/21 release (Protonix) pramipexole 0.25 mg tablet 0.25 mg PO HS 12/29/17 01/17/21 sertraline 50 mg tablet 50 mg PO HS 12/29/17 01/17/21 tamsulosin 0.4 mg capsule 0.4 mg PO QPM 12/29/17 01/17/21 insulin glargine 100 unit/mL 15 unit SUBCUT HS 07/01/19 01/17/21 subcutaneous solution latanoprost 0.005 % eye drops 1 drp OPHTHALMIC (EYE) HS 07/01/19 01/17/21 lisinopril 5 mg tablet 5 mg PO QAM 07/01/19 01/17/21 aspirin 81 mg tablet,delayed 81 mg PO QAM 01/17/21 01/17/21 release rosuvastatin 40 mg tablet 4 mg PO HS 01/17/21 01/17/21 Results & Data (ED) Vital Signs Vital Signs - 24 hr 01/17/21 13:57 01/17/21 14:22 01/17/21 14:52 Temperature 36.3 C L Temperature Source Oral Pulse Rate 77 61 Pulse Rate [Apical] 59 L Pulse Rhythm Regular Pulse Rhythm [Apical] Regular Pulse Strength [Apical] Normal Respiratory Rate 20 17 17 Respiratory Effort / Characteristics Non-Labored Spontaneous Non-Labored Spontaneous Respiratory Depth Normal Normal Respiratory Pattern Regular Blood Pressure 102/57 L Blood Pressure [Right Arm] 129/59 L Blood Pressure Mean 72 Blood Pressure Mean [Right Arm] 82 Blood Pressure Position Sitting Blood Pressure Position [Right Arm] Semi-fowlers Pulse Oximetry 93 96 96 Oxygen Delivery Method Room Air Room Air Room Air Sepsis Recent Fever Within 48 Hours No Sepsis New/Unexplained Change in Mental Status N/A Sepsis Action Taken by Nursing No Action Required 01/17/21 15:40 01/17/21 17:07 Temperature Temperature Source Pulse Rate Pulse Rate [Apical] 53 L 62 Pulse Rhythm Pulse Rhythm [Apical] Pulse Strength [Apical] Respiratory Rate 26 H 15 Respiratory Effort / Characteristics Respiratory Depth Respiratory Pattern Blood Pressure Blood Pressure [Right Arm] 156/64 H 136/71 Blood Pressure Mean Blood Pressure Mean [Right Arm] 94 92 Blood Pressure Position Blood Pressure Position [Right Arm] Semi-fowlers Semi-fowlers Pulse Oximetry 94 94 Oxygen Delivery Method Room Air Room Air Sepsis Recent Fever Within 48 Hours Sepsis New/Unexplained Change in Mental Status Sepsis Action Taken by Nursing Laboratory Data Result diagrams: 01/17/21 18:59 01/17/21 14:38 Lab Results 01/17/21 01/17/21 01/17/21 Range/Units 14:38 14:38 14:38 WBC 6.67 (4.8-10.8) K/uL RBC 4.16 L (4.7-6.1) M/uL Hgb 13.5 L (14.0-18.0) g/dL Hct 38.7 L (42-52) % MCV 93.0 (80-100) fL MCH 32.5 (25-34) pg MCHC 34.9 (32-36) g/dL RDW Std Deviation 47.0 H (36.4-46.3) fL RDW Coeff of Lachelle 13.9 (11.5-14.5) % Plt Count 175 (130-400) K/uL MPV 10.0 (7.4-10.4) fL Immature Gran % (Auto) 0.1 % Neut % (Auto) 56.4 % Lymph % (Auto) 34.6 % [place] % (Auto) 7.6 % Eos % (Auto) 1.2 % Baso % (Auto) 0.1 % Neut # (Auto) 3.75 (1.4-6.5) K/uL Lymph # (Auto) 2.31 (1.2-3.4) K/uL [place] # (Auto) 0.51 (0.11-0.59) K/uL Eos # (Auto) 0.08 (0-0.5) K/uL Baso # (Auto) 0.01 (0-0.2) K/uL Immature Gran # (Auto) 0.01 (0.00-0.02) K/uL PT 10.9 (9.0-12.0) Seconds INR 1.1 (0.9-1.1) APTT 28.7 (21.0-31.0) Seconds PTT Ratio 1.1 Sodium 141 (136-145) mmol/L Potassium 4.0 (3.5-5.1) mmol/L Chloride 111 H (98-107) mmol/L Carbon Dioxide 22 (21-32) mmol/L Anion Gap 8.0 (3-11) BUN 22 H (7-18) mg/dl Creatinine 0.96 (0.6-1.4) mg/dl Est Cr Clr Drug Dosing 79.5 ml/min Est GFR ( Amer) 89.3 ml/min Est GFR (Non-Af Amer) 77.0 ml/min BUN/Creatinine Ratio 22.9 H (10-20) Glucose 176 H (70-99) mg/dl Calcium 9.3 (8.5-10.1) mg/dl Total Bilirubin 0.6 (0.2-1) mg/dl AST 16 (15-37) U/L ALT 17 (12-78) U/L Alkaline Phosphatase 49 (45-117) U/L Troponin I < 0.015 (0-0.045) ng/ml Total Protein 7.5 (6.4-8.2) gm/dl Albumin 3.7 (3.4-5.0) gm/dl Globulin 3.8 (2.5-4.0) gm/dl Albumin/Globulin Ratio 1.0 (0.9-2) COVID-19 Eval Order SARS-CoV-2 (PCR) (Negative) Blood Type Antibody Screen Crossmatch 01/17/21 01/17/21 01/17/21 Range/Units 14:43 14:50 14:50 WBC (4.8-10.8) K/uL RBC (4.7-6.1) M/uL Hgb (14.0-18.0) g/dL Hct (42-52) % MCV (80-100) fL MCH (25-34) pg MCHC (32-36) g/dL RDW Std Deviation (36.4-46.3) fL RDW Coeff of Lachelle (11.5-14.5) % Plt Count (130-400) K/uL MPV (7.4-10.4) fL Immature Gran % (Auto) % Neut % (Auto) % Lymph % (Auto) % [place] % (Auto) % Eos % (Auto) % Baso % (Auto) % Neut # (Auto) (1.4-6.5) K/uL Lymph # (Auto) (1.2-3.4) K/uL [place] # (Auto) (0.11-0.59) K/uL Eos # (Auto) (0-0.5) K/uL Baso # (Auto) (0-0.2) K/uL Immature Gran # (Auto) (0.00-0.02) K/uL PT (9.0-12.0) Seconds INR (0.9-1.1) APTT (21.0-31.0) Seconds PTT Ratio Sodium (136-145) mmol/L Potassium (3.5-5.1) mmol/L Chloride (98-107) mmol/L Carbon Dioxide (21-32) mmol/L Anion Gap (3-11) BUN (7-18) mg/dl Creatinine (0.6-1.4) mg/dl Est Cr Clr Drug Dosing ml/min Est GFR ( Amer) ml/min Est GFR (Non-Af Amer) ml/min BUN/Creatinine Ratio (10-20) Glucose (70-99) mg/dl Calcium (8.5-10.1) mg/dl Total Bilirubin (0.2-1) mg/dl AST (15-37) U/L ALT (12-78) U/L Alkaline Phosphatase (45-117) U/L Troponin I (0-0.045) ng/ml Total Protein (6.4-8.2) gm/dl Albumin (3.4-5.0) gm/dl Globulin (2.5-4.0) gm/dl Albumin/Globulin Ratio (0.9-2) COVID-19 Eval Order Covid19 at [facility] SARS-CoV-2 (PCR) NEGATIVE (Negative) Blood Type A Positive Antibody Screen NEGATIVE Crossmatch See Detail Administered Medications Sodium Chloride (Nss 1000ml) 1,000 mls @ 80 mls/hr IV .[id number] EVA Stop: 01/18/21 22:18 Last Admin: 01/17/21 22:29 Dose: 80 mls/hr Documented by: [id number] Pantoprazole Sodium 40 mg/ (Syringe) 10 mls @ 5 mls/min IV BID EVA Stop: 02/16/21 21:18 Last Admin: 01/17/21 22:20 Dose: 5 mls/min Documented by: [id number] Insulin Aspart (Insulin Aspart 100 Units/Ml 3 Ml Pen) 0 units SC ACHS EVA Stop: 02/16/21 21:18 Last Admin: 01/17/21 22:06 Dose: Not Given Documented by: [id number] Insulin Glargine (Insulin Glargine Solostar 100 Units/Ml 3 Ml Pen) 7 units SQ HS [facility] Stop: 02/16/21 20:59 Last Admin: 01/17/21 22:20 Dose: 7 units Documented by: [id number] Cosigned by: [id number] Latanoprost (Latanoprost 0.005% Op Soln 2.5 Ml Btl) 1 drops OP HS [facility] Stop: 02/16/21 21:18 Last Admin: 01/17/21 22:20 Dose: 1 drops Documented by: [id number] Polyethylene Glycol/Electrolytes (Lavage Solution 4000ml) 1 dose PO TODAY@2200 [facility] Stop: 01/18/21 16:00 Last Admin: 01/17/21 22:36 Dose: 1 dose Documented by: [id number] Pramipexole Dihydrochloride (Pramipexole Dihydrochlo 0.25 Mg Tab) 0.25 mg PO HS EVA Stop: 02/16/21 21:18 Last Admin: 01/17/21 22:20 Dose: 0.25 mg Documented by: [id number] Discontinued Medications Sodium Chloride (Nss) 500 mls @ 999 mls/hr IV .Q31M EVA Stop: 01/17/21 15:00 Last Infusion: 01/17/21 15:54 Dose: 0 mls/hr Documented by: [id number] Admin: 01/17/21 15:10 Dose: 999 mls/hr Documented by: [id number] Pantoprazole Sodium 80 mg/ (Dextrose) 100 mls @ 400 mls/hr IV NOW ONE Stop: 01/17/21 14:36 Last Infusion: 01/17/21 15:25 Dose: 0 mls/hr Documented by: [id number] Admin: 01/17/21 15:05 Dose: 400 mls/hr Documented by: [id number] Famotidine (Pepcid 20mg Iv Push) 20 mg in 5 mls @ 2.5 mls/min IV NOW STA Stop: 01/17/21 14:23 Last Admin: 01/17/21 14:58 Dose: 2.5 mls/min Documented by: [id number] Sodium Chloride (Nss 1000ml) 1,000 mls @ 999 mls/hr IV .Q1H1M ONE Stop: 01/17/21 19:46 Last Infusion: 01/17/21 20:00 Dose: 0 mls/hr Documented by: [id number] Admin: 01/17/21 18:59 Dose: 999 mls/hr Documented by: [id number] Ioversol (Optiray 320 100ml) 93 ml IV ONCE ONE Stop: 01/17/21 15:28 Last Admin: 01/17/21 15:28 Dose: 93 ml Documented by: [id number] Imaging Data Radiologist's Impression: Abdomen/Pelvis CT 01/17/21 14:22 CT SCAN OF THE ABDOMEN AND PELVIS WITH IV CONTRAST CLINICAL HISTORY: GI bleeding. COMPARISON STUDY: Abdominal CT dated 12/29/2017. TECHNIQUE: Following the IV administration of 93 cc of Optiray 320, CT scan of the abdomen and pelvis is performed from the lung bases to the proximal femora. Images are reviewed in the axial, sagittal, and coronal planes. IV contrast was administered without complication. A dose lowering technique was utilized adhering to the principles of ALARA. CT DOSE: 777.30 mGycm FINDINGS: Lung bases: The heart is normal in size and without pericardial effusion. The coronary arteries are densely calcified. There is a small hiatal hernia. The lung bases are clear noting bibasilar scarring/atelectasis. Liver: The contrast-enhanced liver is normal in size, contour, and attenuation. There is no intrahepatic biliary ductal dilatation. The hepatic veins and portal veins are patent. Gallbladder: The gallbladder is filled with gallstones. There is no CT evidence of acute cholecystitis. Spleen: Normal in size and attenuation. Pancreas: Moderately atrophic and grossly unremarkable. Adrenal glands: Unremarkable. Kidneys: The contrast enhanced kidneys demonstrate mild cortical atrophy. There is a 2.5 x 1.1 x 1.1 cm obstructing calculus in the left proximal ureter seen on image #247. This is located at the level of L3 and causes moderate to severe left-sided hydroureteronephrosis. There are least 2 additional 5 mm nonobstructing calculi in the left lower pole. The kidneys enhance symmetrically. There is no right-sided hydronephrosis. Abdominal vasculature: There is advanced atherosclerotic calcification and mild ectasia of the abdominal aorta. Bowel: Question irregular wall thickening of the distal stomach seen on axial image #131. There is advanced colonic diverticulosis without CT evidence of acute diverticulitis. No bowel obstruction is seen. Mild fecal retention is seen throughout the colon. Duodenal diverticula are incidentally noted. The appendix is well-visualized and normal. Peritoneum: There is no intraperitoneal free air or abdominal ascites. There is a small fat-containing umbilical hernia. Lymphadenopathy: None. Pelvic viscera: The prostate gland is enlarged and heterogeneous noting median lobe hypertrophy. A right inguinal hernia contains a small segment of the bladder. The bladder is otherwise normal as imaged. Skeletal structures: The skeletal structures are osteopenic. There is mild to moderate lumbosacral spondylosis. No lytic or blastic lesions are seen. IMPRESSION: 1. There is a 2.5 cm obstructing calculus in the left proximal ureter. This causes moderate to severe hydroureteronephrosis. 2. Additional small nonobstructing calculi are seen in the left lower pole. 3. Cholelithiasis without CT evidence of acute cholecystitis. 4. Advanced colonic diverticulosis without CT evidence of acute diverticulitis. 5. A right inguinal hernia contains a small segment of the bladder. 6. Question irregular wall thickening of the distal stomach. This is not well assessed by CT and can be further evaluated with endoscopy if clinically warranted. 7. Additional findings as above. ACT 112: Negative or not required by law. Electronically signed by: King Soriano M.D. 01/17/2021 3:48 PM Discharge Plan Visit Data Chief Complaint: Rectal Bleed Stated Complaint: RECTAL BLEEDING ED Provider: Brice Porras Discharge Problem: GI bleed, Rectal bleeding, Weakness, Ureteral stone, Acute hypotension Patient Disposition: Admitted As Inpatient Condition: Fair Discharge Instructions Interventions: ED Discharge Assessment Last Done: 01/17/21 20:52
--- NOTE | 2021-01-17 23:38 | Urology Consultation ---
Date of Consultation January 17, 2021 Assessment & Plan (1) Nephrolithiasis: Patient has been admitted by the hospital secondary to GI bleed. Patient is currently in the process of undergoing a bowel prep as bedside RN reports that plans are in place for patient undergo colonoscopy tomorrow. The kidney stone identified on CT scan appears to be an incidental finding as the patient has no pain from this. There is no evidence of leukocytosis suggesting an infection. There is no evidence of acute kidney injury. At the present time no acute intervention will be undertaken for patient's kidney stone until his GI bleed has been further evaluated and addressed. It would be prudent however to check a urinalysis and strain all urine and save any kidney stones retrieved for appropriate analysis. Supervising Physician Co-Signing Physician Notes Reviewed patient, labs, imaging and plan. Agree with above. Large obstructing stone in left proximal ureter, however patient is asymptomatic and has no concern for infection. Creatinine appears stable. GI bleeding more pressing issue currently. Likely would be best served by referral for left PCNL once stabilized from GI perspective. History of Present Illness Reason for Consultation: Nephrolithiasis Attending Physician: Eleuterio Valadez MD History of Present Illness Is a 76-year-old male who was admitted to the hospital secondary to bright red blood per rectum. Patient notes earlier today he had 6-7 episodes of this. Associated symptoms include lightheadedness and dizziness. Denies any nausea or vomiting. He also denies any abdominal pain. He denies any fevers, shakes, chills. He denies any chest pain. The patient was subsequently admitted due to concern for GI bleed. As part of his evaluation he did have a CT scan of the abdomen identifying kidney stone as listed below. For this reason urology has been consulted. Concerning patient's kidney stone patient denies any flank pain. He does report back pain but does report that this is a chronic problem. He denies any difficulty urinating. He denies any dysuria or hematuria. Since admission to the hospital the patient has had a CT scan of the abdomen and pelvis. CT scanning identified a 2.5 cm obstructing calculus in the left proximal ureter which was causing moderate to severe hydronephrosis. Labs consisted of CBC were white blood cell count and platelet count were both noted to be normal. Initial hemoglobin was 13.5 but this is since dropped to 11.2 on subsequent labs. Coagulation studies showed INR was within the normal range. Chemistry profile showed sodium and potassium were both normal. Patient had a slight elevation of his BUN at 20. Creatinine was noted to be within the normal range. A Covid test was performed and was noted to be negative. At the time of interview the patient was resting in bed. He was in no distress but did appear fatigued. Allergies Allergy/AdvReac Type Severity Reaction Status Date / Time No Known Allergies Allergy Unverified 01/17/21 15:26 Home Medications Medication Instructions Recorded Confirmed Type gabapentin 300 mg capsule 600 mg PO TID 12/29/17 01/17/21 History magnesium oxide 400 mg (241.3 mg 400 mg PO QAM 12/29/17 01/17/21 History magnesium) tablet (MgO) metformin 1,000 mg tablet 1,000 mg PO BIDM 12/29/17 01/17/21 History metoprolol tartrate 25 mg tablet 25 mg PO DAILY 12/29/17 01/17/21 History multivit with minerals-iron 18 1 tab PO QAM 12/29/17 01/17/21 History mg-folic ac 400 mcg-vit K 25 mcg tablet (Multi-Day Plus Minerals) omega 8-cpf-lxl-fish oil 1,000 mg 1,000 mg PO BID 12/29/17 01/17/21 History (120 mg-180 mg) capsule (Fish Oil) pantoprazole 40 mg tablet,delayed 40 mg PO BID 12/29/17 01/17/21 History release (Protonix) pramipexole 0.25 mg tablet 0.25 mg PO HS 12/29/17 01/17/21 History sertraline 50 mg tablet 50 mg PO HS 12/29/17 01/17/21 History tamsulosin 0.4 mg capsule 0.4 mg PO QPM 12/29/17 01/17/21 History insulin glargine 100 unit/mL 15 unit SUBCUT HS 07/01/19 01/17/21 History subcutaneous solution latanoprost 0.005 % eye drops 1 drp OPHTHALMIC (EYE) HS 07/01/19 01/17/21 History lisinopril 5 mg tablet 5 mg PO QAM 07/01/19 01/17/21 History aspirin 81 mg tablet,delayed 81 mg PO QAM 01/17/21 01/17/21 History release rosuvastatin 40 mg tablet 4 mg PO HS 01/17/21 01/17/21 History Patient History Medical History (Updated 01/18/21 @ 07:55 by DAISY Crabtree) Alberto's esophagus BPH (benign prostatic hyperplasia) 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 Diabetes mellitus, type 2 Diabetic neuropathy Diverticulitis HLD (hyperlipidemia) HTN (hypertension) Restless leg syndrome Squamous cell carcinoma of nose Surgical History History of total knee arthroplasty Bilateral Status post total shoulder arthroplasty Family History Other No pertinent family history Social History Smoking Status: Former smoker Smoking End Date: 1989; Second Hand Exposure: No; Tobacco Cessation Education Requested by Patient: No Hx Alcohol Use: Yes Alcohol type: beer Hx Substance Use: No Preferred Language: Kinyarwanda Communication Ability: Effective Hydramatic Mechanic Required: No Beliefs That Will Affect Care: None marital status: Current Living Situation: Spouse Other Information That Helps Us Care for You: No Feels Safe at Home: Yes Safety Concerns: Feels Safe At This Time Assistive Devices: None Review of Systems Constitutional: no fever and no chills Eyes: + corrective lenses Ear, Nose, Mouth, Throat: no ear pain Respiratory: no cough and no dyspnea Cardiovascular: no chest pain Gastrointestinal: + blood in stools; no abdominal pain Genitourinary: no dysuria, no hematuria or no flank pain Musculoskeletal: + back pain (Patient reports this is chronic problem) Integumentary: no rash Neurologic: no localized weakness Physical Exam Constitutional: no acute distress Eyes: Wears glasses ENMT: Ears: no hearing impairment Mouth: no oropharynx abnormality Neck: trachea midline Respiratory: normal respiratory effort; no respiratory distress and no labored breathing Cardiovascular: Rate/Rhythm: regular rate and regular rhythm Gastrointestinal (Abdomen): Soft, nontender, nondistended. No pain with palpation Musculoskeletal: No calf tenderness Skin: + pallor; no rashes Neurologic: moves all extremities Psychiatric: A+Ox3, euthymic affect Results & Data ([facility]) Vital Signs (Past 12 Hours) Vital Signs Temp Pulse Pulse Resp BP BP Pulse Ox 01/17/21 20:45 37.1 C 73 18 132/62 96 01/17/21 20:30 36.6 C 72 18 118/77 96 01/17/21 20:15 79 22 140/76 95 01/17/21 20:06 74 20 115/79 97 01/17/21 20:01 36.5 C 66 20 151/74 H 96 01/17/21 19:56 69 20 131/78 95 01/17/21 19:48 68 20 116/58 L 98 01/17/21 19:44 64 20 116/58 L 95 01/17/21 19:42 64 16 94 01/17/21 19:31 36.6 C 64 25 H 117/57 L 93 01/17/21 19:21 72 20 102/55 L 96 01/17/21 19:10 61 26 H 105/49 L 94 01/17/21 19:00 65 64 22 88/46 L 88/46 L 93 01/17/21 18:46 70 22 107/56 L 94 01/17/21 18:30 65 23 90/63 L 95 01/17/21 18:26 61 19 85/43 L 96 01/17/21 17:07 62 15 136/71 94 01/17/21 15:40 53 L 26 H 156/64 H 94 01/17/21 14:52 59 L 17 129/59 L 96 01/17/21 14:22 61 17 96 01/17/21 13:57 36.3 C L 77 20 102/57 L 93 PG Care Time/CCT Total # of Minutes Spent Total Time Spent with Patient: Total time spent is greater than 50% in coordi nation of care (as documented) at patient's floor/unit and/or counseling patient: Coding Level of Care Code 87569 Inpt Consult Level 5 Diagnoses Nephrolithiasis N20.0
[2021-01-18 01:17] LABS: Hematocrit (blood only) 31.2 % (42-52); Hemoglobin 10.6 g/dL (14.0-18.0)
[2021-01-18 03:58] LABS: Basophils # (auto) 0.01 K/uL (0-0.2); Basophils % (auto) 0.1 %; Eosinophils # (auto) 0.01 K/uL (0-0.5); Eosinophils % (auto) 0.1 %; Hematocrit (blood only) 29.7 % (42-52); Hemoglobin 10.3 g/dL (14.0-18.0); Immature Granulocytes # (auto) 0.01 K/uL (0.00-0.02); Immature Granulocytes % (auto) 0.1 %; Lymphocytes % (auto) 16.6 %; Mean Corpuscular Hemoglobin 31.5 pg (25-34); Mean Corpuscular Hgb Conc 34.7 g/dL (32-36); Mean Corpuscular Volume 90.8 fL (80-100); Mean Platelet Volume 9.9 fL (7.4-10.4); Monocytes # (auto) 0.63 K/uL (0.11-0.59); Monocytes % (auto) 6.5 %; Neutrophils # (auto) 7.38 K/uL (1.4-6.5); Neutrophils % (auto) 76.6 %; Platelet Count 151 K/uL (130-400); RDW Coefficient of Variation 15.3 % (11.5-14.5); RDW Standard Deviation 50.2 fL (36.4-46.3); Red Blood Count 3.27 M/uL (4.7-6.1); White Blood Count 9.64 K/uL (4.8-10.8)
[2021-01-18 04:41] LABS: Albumin Globulin Ratio 1.2 (0.9-2); Albumin Level 2.9 gm/dl (3.4-5.0); BUN Creatinine Ratio 19.8 (10-20); Bilirubin,Total 0.7 mg/dl (0.2-1); Calcium 7.5 mg/dl (8.5-10.1); Creatinine Clr Calc Pharmacy 62.5 ml/min; Est GFR (African American) 66.8 ml/min; Est GFR (Non-African American) 57.6 ml/min; Globulin 2.5 gm/dl (2.5-4.0); Magnesium 1.1 mg/dl (1.8-2.4); Potassium 4.6 mmol/L (3.5-5.1); Total Protein 5.4 gm/dl (6.4-8.2)
[2021-01-18 07:49] LABS: Estimated Average Glucose 146 mg/dl; Hemoglobin A1C 6.7 % (4.5-5.6)
--- NOTE | 2021-01-18 07:49 | Urology Progress Note ---
Date of Service January 18, 2021 Assessment & Plan (1) Calculus of proximal left ureter: Plan: 76yo M admitted with GI bleed with an incidental findings on CT imaging of a 2.5cm proximal left ureteral stone with hydronephrosis - Plan of care reviewed with Dr. De La Torre, on-call urologist - He is afebrile, VSS, non-toxic appearing - Labs reviewed, Wbc and Creatinine stable - Voiding without difficulty - Given he is stable from a standpoint at this time, no acute intervention warranted at this time - Will plan for definitive stone management once stabilized from GI perspective - Patient is established with [facility] and plans to follow-up as ou tpatient given there are no acute changes in patient status - Please consult our service urgently if patient develops fever >101F, intractable pain or nausea, as this will necessitate urgent surgical intervention - Will continue to follow Admission and Anticipated Discharge Date Admission Date: January 17, 2021 Subjective Pt examined at bedside this AM. Awake, resting in bed on arrival. He denies abdominal and flank pain. Reports lower back pain, at his coccyx, which he states has been ongoing for a few months. No fevers or chills. Denies nausea at present. Some vomiting last evening/overnight, states this was from the bowel prep Voiding without difficulty Denies hematuria and dysuria Feels he is emptying his bladder well Has been NPO overnight for possible colonoscopy this morning. Review of Systems Constitutional: as per Subjective / HPI Gastrointestinal: as per Subjective / HPI Genitourinary: + as per Subjective / HPI Physical Exam Constitutional: well developed and well nourished; no acute distress and not ill appearing Respiratory: normal respiratory effort and able to speak in complete sentences; no labored breathing and no audible wheezes Gastrointestinal (Abdomen): Inspection/Auscultation: abdomen normal to inspection; abdomen not distended Percussion/Palpation: abdomen soft; abdomen nontender and no guarding Musculoskeletal: Head/Neck/Chest: normocephalic Skin: No visible rashes or lesions to exposed skin areas Neurologic: moves all extremities and awake Psychiatric: Orientation: alert, oriented x 3 and cooperative Genitourinary: no CVA tenderness Results & Data ([facility]) Vital Signs (Past 12 Hours) Vital Signs Temp Pulse Pulse Resp BP BP BP 01/18/21 06:49 36.4 C L 71 20 132/64 01/18/21 04:00 36.4 C L 67 20 88/52 L 98/34 L 01/17/21 23:34 36.3 C L 72 24 97/62 L 01/17/21 22:10 60 91/38 L 01/17/21 22:00 61 105/53 L 01/17/21 21:35 69 20 94/44 L 01/17/21 21:19 36.4 C L 70 20 145/62 H 01/17/21 20:45 37.1 C 73 18 132/62 01/17/21 20:30 36.6 C 72 18 118/77 01/17/21 20:15 79 22 140/76 01/17/21 20:06 74 20 115/79 01/17/21 20:01 36.5 C 66 20 151/74 H 01/17/21 19:56 69 20 131/78 Pulse Ox 01/18/21 06:49 98 01/18/21 04:00 95 01/17/21 23:34 97 01/17/21 22:10 01/17/21 22:00 01/17/21 21:35 96 01/17/21 21:19 96 01/17/21 20:45 96 01/17/21 20:30 96 01/17/21 20:15 95 01/17/21 20:06 97 01/17/21 20:01 96 01/17/21 19:56 95 PG Care Time/CCT Total # of Minutes Spent Total Time Spent with Patient: Total time spent is greater than 50% in coordination of care (as documented) at patient's floor/unit and/or counseling patient: Coding Level of Care Code 79033 Subseq Hosp Care Lvl 2 Diagnoses Calculus of proximal left ureter N20.1
[2021-01-18] MEDS: INSULIN ASPART 100 UNITS/ML 3 ML PEN SC SCH ×4 (08:06→21:38)
[2021-01-18] MEDS: PANTOprazole 40 MG in SYRINGE 0 ML IV SCH ×2 (08:07→21:37)
--- NOTE | 2021-01-18 08:18 | Gastrointestinal Consultation ---
Date of Consultation January 18, 2021 Assessment & Plan (1) GI bleed: This is a 76-year-old male admitted with gross rectal bleeding, and GI consulted for GI bleed. Patient had frequent large bouts of rectal bleeding and hypotension, however has improved today and rectal bleeding has ceased. He was given blood transfusion x2, hemoglobin did drop to 9.4 from baseline of 13. BUN has not risen significantly above baseline, making acute UGIB less likely. Presentation overall consistent with likely diverticular hemorrhage. On exam abd soft, nontender, no overt GIB. VS overall stable; BP somewhat low-normal with no tachycardia. - He did complete 1/2 a bowel prep but stopped as he had n/v. - As bleeding has stopped on its own (as is typical for diverticular bleeds), will defer colonoscopy at this time as would not likely add to his care - Would try CL diet today as tolerated - Monitor GI output closely for rebleeding - Trend H&H, transfuse PRN - Continue IV PPI - Would hold ASA - Monitor BP - Continue supportive care - Would keep outpt GI f/u as scheduled for his h/o Alberto's esophagus Thank you for allowing us to participate in the care of this patient. Please call with any acute changes, questions or concerns. Please see addendum below with additional recommendation from my supervising physician. Supervising Physician Co-Signing Physician Notes I have personally seen and examined the patient with Marielle Rice PA-C. Her note reflects my exam and findings. I agree with her impression and plan. Most c/w diverticular bleed. Follow H/H. Slowly advance diet. Hayder Vargas M.D. History of Present Illness Reason for Consultation: GI bleed Requesting Physician: Shalonda Young PA-C Attending Physician: Shelly Bojorquez MD History of Present Illness This is a 72 year old male with PMHx diverticulosis, HTN, HLD, DM2, diabetic neuropathy, restless leg syndrome, BPH, depression/anxiety, Alberto's esophagus, hx. of squamous cell carcinoma of the nose, admitted yesterday after presenting with rectal bleeding. Was having 6-7 bouts at home of grossly bloody BMs. In the ER, he continued to have bouts of rectal bleeding frequently every 15 minutes. He did have hypotension, and was given IVF and blood transfusions x2. CT abd showed diverticulosis without diverticulitis, also noted to be a 2.5 cm stone in the left ureter. On-call GI service was contacted, and recommendation was given to transferring for possible IR intervention. Patient stabilized and was kept here in the hospital. Overnight he has had no further bouts of hematochezia. Currently, patient examined resting in bed. Denies abdominal pain and in general has no complaints today. He did take one half a bottle of GoLYTELY prep in case colonoscopy was performed today, but had some n, bout of nonbloody vomiting and stopped this. He had no stool output from this. No further n/v. He's on IV PPI. BP has been low normal, no tachycardia. Hemoglobin 9.4 (baseline 13.5), crit 26.9%, BUN 24. Had a similar episode in 2018, felt to be diverticular in nature. He gets regular EGD's for Alberto's surveillance, last one was 11/2019. Last colonoscopy was in 2018. Denies chest pain or shortness of breath, syncope or weakness, headache, dysphagia, heartburn, nausea vomiting, hematemesis, melena. He does take ASA daily. No other AC. Colonoscopy 2018: The examined portion of the ileum was normal. - Moderate diverticulosis in the entire examined colon. - Internal hemorrhoids. - The examination was otherwise normal. - No specimens collected. Last EGD 11/2019: - No endoscopic esophageal abnormality to explain patient's dysphagia. Esophagus dilated to 54 Fr today. - Z-line irregular, 41 cm from the incisors. Biopsied. - Normal stomach. - Normal examined duodenum. Allergies Allergy/AdvReac Type Severity Reaction Status Date / Time No Known Allergies Allergy Unverified 01/17/21 15:26 Home Medications Medication Instructions Recorded Confirmed Type gabapentin 300 mg capsule 600 mg PO TID 12/29/17 01/17/21 History magnesium oxide 400 mg (241.3 mg 400 mg PO QAM 12/29/17 01/17/21 History magnesium) tablet (MgO) metformin 1,000 mg tablet 1,000 mg PO BIDM 12/29/17 01/17/21 History metoprolol tartrate 25 mg tablet 25 mg PO DAILY 12/29/17 01/17/21 History multivit with minerals-iron 18 1 tab PO QAM 12/29/17 01/17/21 History mg-folic ac 400 mcg-vit K 25 mcg tablet (Multi-Day Plus Minerals) omega 2-uty-niq-fish oil 1,000 mg 1,000 mg PO BID 12/29/17 01/17/21 History (120 mg-180 mg) capsule (Fish Oil) pantoprazole 40 mg tablet,delayed 40 mg PO BID 12/29/17 01/17/21 History release (Protonix) pramipexole 0.25 mg tablet 0.25 mg PO HS 12/29/17 01/17/21 History sertraline 50 mg tablet 50 mg PO HS 12/29/17 01/17/21 History tamsulosin 0.4 mg capsule 0.4 mg PO QPM 12/29/17 01/17/21 History insulin glargine 100 unit/mL 15 unit SUBCUT HS 07/01/19 01/17/21 History subcutaneous solution latanoprost 0.005 % eye drops 1 drp OPHTHALMIC (EYE) HS 07/01/19 01/17/21 History lisinopril 5 mg tablet 5 mg PO QAM 07/01/19 01/17/21 History aspirin 81 mg tablet,delayed 81 mg PO QAM 01/17/21 01/17/21 History release rosuvastatin 40 mg tablet 4 mg PO HS 01/17/21 01/17/21 History Patient History Medical History (Updated 01/18/21 @ 07:55 by DAISY Crabtree) Alberto's esophagus BPH (benign prostatic hyperplasia) 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 Diabetes mellitus, type 2 Diabetic neuropathy Diverticulitis HLD (hyperlipidemia) HTN (hypertension) Restless leg syndrome Squamous cell carcinoma of nose Surgical History History of total knee arthroplasty Bilateral Status post total shoulder arthroplasty Family History Other No pertinent family history Social History Smoking Status: Former smoker Smoking End Date: 1989; Second Hand Exposure: No; Tobacco Cessation Education Requested by Patient: No Hx Alcohol Use: Yes Alcohol type: beer Hx Substance Use: No Preferred Language: Azerbaijani Communication Ability: Effective [employer]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 Beliefs That Will Affect Care: None marital status: Current Living Situation: Spouse Other Information That Helps Us Care for You: No Feels Safe at Home: Yes Safety Concerns: Feels Safe At This Time Assistive Devices: Cane and Walker Review of Systems Review of Systems: A complete review of systems was negative except as noted in HPI Physical Exam Constitutional: WD/WN, vitals as above Eyes: Sclera anicteric Neck: trachea midline, no thyromegaly Respiratory: normal respiratory effort, lungs clear to auscultation Cardiovascular: RRR, no murmur, no edema Gastrointestinal (Abdomen): normal bowel sounds, soft, nontender, no hepatosplenomegaly Skin: no rashes, warm and dry Psychiatric: A+Ox3, euthymic affect Results & Data ([facility]) Vital Signs (Past 12 Hours) Vital Signs Temp Pulse Pulse Resp BP BP BP 01/18/21 08:05 36.6 C 63 20 93/46 L 01/18/21 06:49 36.4 C L 71 20 132/64 01/18/21 04:00 36.4 C L 67 20 88/52 L 98/34 L 01/17/21 23:34 36.3 C L 72 24 97/62 L 01/17/21 22:10 60 91/38 L 01/17/21 22:00 61 105/53 L 01/17/21 21:35 69 20 94/44 L 01/17/21 21:19 36.4 C L 70 20 145/62 H 01/17/21 20:45 37.1 C 73 18 132/62 01/17/21 20:30 36.6 C 72 18 118/77 01/17/21 20:15 79 22 140/76 Pulse Ox 01/18/21 08:05 93 01/18/21 06:49 98 01/18/21 04:00 95 01/17/21 23:34 97 01/17/21 22:10 01/17/21 22:00 01/17/21 21:35 96 01/17/21 21:19 96 01/17/21 20:45 96 01/17/21 20:30 96 01/17/21 20:15 95 Laboratory Results 01/18/21 01/18/21 01/18/21 Range/Units 11:42 11:14 07:31 WBC (4.8-10.8) K/uL RBC (4.7-6.1) M/uL Hgb 9.4 L (14.0-18.0) g/dL Hct 26.9 L (42-52) % MCV (80-100) fL MCH (25-34) pg MCHC (32-36) g/dL RDW Std Deviation (36.4-46.3) fL RDW Coeff of Lachelle (11.5-14.5) % Plt Count (130-400) K/uL MPV (7.4-10.4) fL Immature Gran % (Auto) % Neut % (Auto) % Lymph % (Auto) % [place] % (Auto) % Eos % (Auto) % Baso % (Auto) % Neut # (Auto) (1.4-6.5) K/uL Lymph # (Auto) (1.2-3.4) K/uL [place] # (Auto) (0.11-0.59) K/uL Eos # (Auto) (0-0.5) K/uL Baso # (Auto) (0-0.2) K/uL Immature Gran # (Auto) (0.00-0.02) K/uL PT (9.0-12.0) Seconds INR (0.9-1.1) APTT (21.0-31.0) Seconds PTT Ratio Sodium (136-145) mmol/L Potassium (3.5-5.1) mmol/L Chloride (98-107) mmol/L Carbon Dioxide (21-32) mmol/L Anion Gap (3-11) BUN (7-18) mg/dl Creatinine (0.6-1.4) mg/dl Est Cr Clr Drug Dosing ml/min Est GFR ( Amer) ml/min Est GFR (Non-Af Amer) ml/min BUN/Creatinine Ratio (10-20) Glucose (70-99) mg/dl POC Glucose 203 H 137 H (70-99) mg/dl Estimat Average Glucose mg/dl Hemoglobin A1c (4.5-5.6) % Calcium (8.5-10.1) mg/dl Magnesium (1.8-2.4) mg/dl Total Bilirubin (0.2-1) mg/dl AST (15-37) U/L ALT (12-78) U/L Alkaline Phosphatase (45-117) U/L Troponin I (0-0.045) ng/ml Total Protein (6.4-8.2) gm/dl Albumin (3.4-5.0) gm/dl Globulin (2.5-4.0) gm/dl Albumin/Globulin Ratio (0.9-2) COVID-19 Eval Order SARS-CoV-2 (PCR) (Negative) Blood Type Antibody Screen Crossmatch 01/18/21 01/18/21 01/18/21 Range/Units 03:22 03:22 03:22 WBC 9.64 (4.8-10.8) K/uL RBC 3.27 L (4.7-6.1) M/uL Hgb 10.3 L (14.0-18.0) g/dL Hct 29.7 L (42-52) % MCV 90.8 (80-100) fL MCH 31.5 (25-34) pg MCHC 34.7 (32-36) g/dL RDW Std Deviation 50.2 H (36.4-46.3) fL RDW Coeff of Lachelle 15.3 H (11.5-14.5) % Plt Count 151 (130-400) K/uL MPV 9.9 (7.4-10.4) fL Immature Gran % (Auto) 0.1 % Neut % (Auto) 76.6 % Lymph % (Auto) 16.6 % [place] % (Auto) 6.5 % Eos % (Auto) 0.1 % Baso % (Auto) 0.1 % Neut # (Auto) 7.38 H (1.4-6.5) K/uL Lymph # (Auto) 1.60 (1.2-3.4) K/uL [place] # (Auto) 0.63 H (0.11-0.59) K/uL Eos # (Auto) 0.01 (0-0.5) K/uL Baso # (Auto) 0.01 (0-0.2) K/uL Immature Gran # (Auto) 0.01 (0.00-0.02) K/uL PT (9.0-12.0) Seconds INR (0.9-1.1) APTT (21.0-31.0) Seconds PTT Ratio Sodium 140 (136-145) mmol/L Potassium 4.6 (3.5-5.1) mmol/L Chloride 116 H (98-107) mmol/L Carbon Dioxide 20 L (21-32) mmol/L Anion Gap 4.0 (3-11) BUN 24 H (7-18) mg/dl Creatinine 1.22 (0.6-1.4) mg/dl Est Cr Clr Drug Dosing 62.5 ml/min Est GFR ( Amer) 66.8 ml/min Est GFR (Non-Af Amer) 57.6 ml/min BUN/Creatinine Ratio 19.8 (10-20) Glucose 167 H (70-99) mg/dl POC Glucose (70-99) mg/dl Estimat Average Glucose 146 mg/dl Hemoglobin A1c 6.7 H (4.5-5.6) % Calcium 7.5 L D (8.5-10.1) mg/dl Magnesium 1.1 L (1.8-2.4) mg/dl Total Bilirubin 0.7 (0.2-1) mg/dl AST 13 L (15-37) U/L ALT 14 (12-78) U/L Alkaline Phosphatase 34 L (45-117) U/L Troponin I (0-0.045) ng/ml Total Protein 5.4 L D (6.4-8.2) gm/dl Albumin 2.9 L (3.4-5.0) gm/dl Globulin 2.5 (2.5-4.0) gm/dl Albumin/Globulin Ratio 1.2 (0.9-2) COVID-19 Eval Order SARS-CoV-2 (PCR) (Negative) Blood Type Antibody Screen Crossmatch 01/18/21 01/17/21 01/17/21 Range/Units 01:05 22:05 21:38 WBC (4.8-10.8) K/uL RBC (4.7-6.1) M/uL Hgb 10.6 L (14.0-18.0) g/dL Hct 31.2 L (42-52) % MCV (80-100) fL MCH (25-34) pg MCHC (32-36) g/dL RDW Std Deviation (36.4-46.3) fL RDW Coeff of Lachelle (11.5-14.5) % Plt Count (130-400) K/uL MPV (7.4-10.4) fL Immature Gran % (Auto) % Neut % (Auto) % Lymph % (Auto) % [place] % (Auto) % Eos % (Auto) % Baso % (Auto) % Neut # (Auto) (1.4-6.5) K/uL Lymph # (Auto) (1.2-3.4) K/uL [place] # (Auto) (0.11-0.59) K/uL Eos # (Auto) (0-0.5) K/uL Baso # (Auto) (0-0.2) K/uL Immature Gran # (Auto) (0.00-0.02) K/uL PT (9.0-12.0) Seconds INR (0.9-1.1) APTT (21.0-31.0) Seconds PTT Ratio Sodium (136-145) mmol/L Potassium (3.5-5.1) mmol/L Chloride (98-107) mmol/L Carbon Dioxide (21-32) mmol/L Anion Gap (3-11) BUN (7-18) mg/dl Creatinine (0.6-1.4) mg/dl Est Cr Clr Drug Dosing ml/min Est GFR ( Amer) ml/min Est GFR (Non-Af Amer) ml/min BUN/Creatinine Ratio (10-20) Glucose (70-99) mg/dl POC Glucose 157 H (70-99) mg/dl Estimat Average Glucose mg/dl Hemoglobin A1c (4.5-5.6) % Calcium (8.5-10.1) mg/dl Magnesium (1.8-2.4) mg/dl Total Bilirubin (0.2-1) mg/dl AST (15-37) U/L ALT (12-78) U/L Alkaline Phosphatase (45-117) U/L Troponin I < 0.015 (0-0.045) ng/ml Total Protein (6.4-8.2) gm/dl Albumin (3.4-5.0) gm/dl Globulin (2.5-4.0) gm/dl Albumin/Globulin Ratio (0.9-2) COVID-19 Eval Order SARS-CoV-2 (PCR) (Negative) Blood Type Antibody Screen Crossmatch 01/17/21 01/17/21 01/17/21 Range/Units 18:59 14:50 14:50 WBC (4.8-10.8) K/uL RBC (4.7-6.1) M/uL Hgb 11.2 L (14.0-18.0) g/dL Hct 32.4 L (42-52) % MCV (80-100) fL MCH (25-34) pg MCHC (32-36) g/dL RDW Std Deviation (36.4-46.3) fL RDW Coeff of Lachelle (11.5-14.5) % Plt Count (130-400) K/uL MPV (7.4-10.4) fL Immature Gran % (Auto) % Neut % (Auto) % Lymph % (Auto) % [place] % (Auto) % Eos % (Auto) % Baso % (Auto) % Neut # (Auto) (1.4-6.5) K/uL Lymph # (Auto) (1.2-3.4) K/uL [place] # (Auto) (0.11-0.59) K/uL Eos # (Auto) (0-0.5) K/uL Baso # (Auto) (0-0.2) K/uL Immature Gran # (Auto) (0.00-0.02) K/uL PT (9.0-12.0) Seconds INR (0.9-1.1) APTT (21.0-31.0) Seconds PTT Ratio Sodium (136-145) mmol/L Potassium (3.5-5.1) mmol/L Chloride (98-107) mmol/L Carbon Dioxide (21-32) mmol/L Anion Gap (3-11) BUN (7-18) mg/dl Creatinine (0.6-1.4) mg/dl Est Cr Clr Drug Dosing ml/min Est GFR ( Amer) ml/min Est GFR (Non-Af Amer) ml/min BUN/Creatinine Ratio (10-20) Glucose (70-99) mg/dl POC Glucose (70-99) mg/dl Estimat Average Glucose mg/dl Hemoglobin A1c (4.5-5.6) % Calcium (8.5-10.1) mg/dl Magnesium (1.8-2.4) mg/dl Total Bilirubin (0.2-1) mg/dl AST (15-37) U/L ALT (12-78) U/L Alkaline Phosphatase (45-117) U/L Troponin I (0-0.045) ng/ml Total Protein (6.4-8.2) gm/dl Albumin (3.4-5.0) gm/dl Globulin (2.5-4.0) gm/dl Albumin/Globulin Ratio (0.9-2) COVID-19 Eval Order Covid19 at [facility] SARS-CoV-2 (PCR) NEGATIVE (Negative) Blood Type Antibody Screen Crossmatch 01/17/21 01/17/21 01/17/21 Range/Units 14:43 14:38 14:38 WBC (4.8-10.8) K/uL RBC (4.7-6.1) M/uL Hgb (14.0-18.0) g/dL Hct (42-52) % MCV (80-100) fL MCH (25-34) pg MCHC (32-36) g/dL RDW Std Deviation (36.4-46.3) fL RDW Coeff of Lachelle (11.5-14.5) % Plt Count (130-400) K/uL MPV (7.4-10.4) fL Immature Gran % (Auto) % Neut % (Auto) % Lymph % (Auto) % [place] % (Auto) % Eos % (Auto) % Baso % (Auto) % Neut # (Auto) (1.4-6.5) K/uL Lymph # (Auto) (1.2-3.4) K/uL [place] # (Auto) (0.11-0.59) K/uL Eos # (Auto) (0-0.5) K/uL Baso # (Auto) (0-0.2) K/uL Immature Gran # (Auto) (0.00-0.02) K/uL PT 10.9 (9.0-12.0) Seconds INR 1.1 (0.9-1.1) APTT 28.7 (21.0-31.0) Seconds PTT Ratio 1.1 Sodium 141 (136-145) mmol/L Potassium 4.0 (3.5-5.1) mmol/L Chloride 111 H (98-107) mmol/L Carbon Dioxide 22 (21-32) mmol/L Anion Gap 8.0 (3-11) BUN 22 H (7-18) mg/dl Creatinine 0.96 (0.6-1.4) mg/dl Est Cr Clr Drug Dosing 79.5 ml/min Est GFR ( Amer) 89.3 ml/min Est GFR (Non-Af Amer) 77.0 ml/min BUN/Creatinine Ratio 22.9 H (10-20) Glucose 176 H (70-99) mg/dl POC Glucose (70-99) mg/dl Estimat Average Glucose mg/dl Hemoglobin A1c (4.5-5.6) % Calcium 9.3 (8.5-10.1) mg/dl Magnesium (1.8-2.4) mg/dl Total Bilirubin 0.6 (0.2-1) mg/dl AST 16 (15-37) U/L ALT 17 (12-78) U/L Alkaline Phosphatase 49 (45-117) U/L Troponin I < 0.015 (0-0.045) ng/ml Total Protein 7.5 (6.4-8.2) gm/dl Albumin 3.7 (3.4-5.0) gm/dl Globulin 3.8 (2.5-4.0) gm/dl Albumin/Globulin Ratio 1.0 (0.9-2) COVID-19 Eval Order SARS-CoV-2 (PCR) (Negative) Blood Type A Positive Antibody Screen NEGATIVE Crossmatch See Detail 01/17/21 Range/Units 14:38 WBC 6.67 (4.8-10.8) K/uL RBC 4.16 L (4.7-6.1) M/uL Hgb 13.5 L (14.0-18.0) g/dL Hct 38.7 L (42-52) % MCV 93.0 (80-100) fL MCH 32.5 (25-34) pg MCHC 34.9 (32-36) g/dL RDW Std Deviation 47.0 H (36.4-46.3) fL RDW Coeff of Lachelle 13.9 (11.5-14.5) % Plt Count 175 (130-400) K/uL MPV 10.0 (7.4-10.4) fL Immature Gran % (Auto) 0.1 % Neut % (Auto) 56.4 % Lymph % (Auto) 34.6 % [place] % (Auto) 7.6 % Eos % (Auto) 1.2 % Baso % (Auto) 0.1 % Neut # (Auto) 3.75 (1.4-6.5) K/uL Lymph # (Auto) 2.31 (1.2-3.4) K/uL [place] # (Auto) 0.51 (0.11-0.59) K/uL Eos # (Auto) 0.08 (0-0.5) K/uL Baso # (Auto) 0.01 (0-0.2) K/uL Immature Gran # (Auto) 0.01 (0.00-0.02) K/uL PT (9.0-12.0) Seconds INR (0.9-1.1) APTT (21.0-31.0) Seconds PTT Ratio Sodium (136-145) mmol/L Potassium (3.5-5.1) mmol/L Chloride (98-107) mmol/L Carbon Dioxide (21-32) mmol/L Anion Gap (3-11) BUN (7-18) mg/dl Creatinine (0.6-1.4) mg/dl Est Cr Clr Drug Dosing ml/min Est GFR ( Amer) ml/min Est GFR (Non-Af Amer) ml/min BUN/Creatinine Ratio (10-20) Glucose (70-99) mg/dl POC Glucose (70-99) mg/dl Estimat Average Glucose mg/dl Hemoglobin A1c (4.5-5.6) % Calcium (8.5-10.1) mg/dl Magnesium (1.8-2.4) mg/dl Total Bilirubin (0.2-1) mg/dl AST (15-37) U/L ALT (12-78) U/L Alkaline Phosphatase (45-117) U/L Troponin I (0-0.045) ng/ml Total Protein (6.4-8.2) gm/dl Albumin (3.4-5.0) gm/dl Globulin (2.5-4.0) gm/dl Albumin/Globulin Ratio (0.9-2) COVID-19 Eval Order SARS-CoV-2 (PCR) (Negative) Blood Type Antibody Screen Crossmatch Diagnostic Findings CTAP: Lung bases: The heart is normal in size and without pericardial effusion. The coronary arteries are densely calcified. There is a small hiatal hernia. The lung bases are clear noting bibasilar scarring/atelectasis. Liver: The contrast-enhanced liver is normal in size, contour, and attenuation. There is no intrahepatic biliary ductal dilatation. The hepatic veins and portal veins are patent. Gallbladder: The gallbladder is filled with gallstones. There is no CT evidence of acute cholecystitis. Spleen: Normal in size and attenuation. Pancreas: Moderately atrophic and grossly unremarkable. Adrenal glands: Unremarkable. Kidneys: The contrast enhanced kidneys demonstrate mild cortical atrophy. There is a 2.5 x 1.1 x 1.1 cm obstructing calculus in the left proximal ureter seen on image #247. This is located at the level of L3 and causes moderate to severe left-sided hydroureteronephrosis. There are least 2 additional 5 mm nonobstructing calculi in the left lower pole. The kidneys enhance symmetrically. There is no right-sided hydronephrosis. Abdominal vasculature: There is advanced atherosclerotic calcification and mild ectasia of the abdominal aorta. Bowel: Question irregular wall thickening of the distal stomach seen on axial image #131. There is advanced colonic diverticulosis without CT evidence of acute diverticulitis. No bowel obstruction is seen. Mild fecal retention is seen throughout the colon. Duodenal diverticula are incidentally noted. The appendix is well-visualized and normal. Peritoneum: There is no intraperitoneal free air or abdominal ascites. There is a small fat-containing umbilical hernia. Lymphadenopathy: None. Pelvic viscera: The prostate gland is enlarged and heterogeneous noting median lobe hypertrophy. A right inguinal hernia contains a small segment of the bladder. The bladder is otherwise normal as imaged. Skeletal structures: The skeletal structures are osteopenic. There is mild to moderate lumbosacral spondylosis. No lytic or blastic lesions are seen. IMPRESSION: 1. There is a 2.5 cm obstructing calculus in the left proximal ureter. This causes moderate to severe hydroureteronephrosis. 2. Additional small nonobstructing calculi are seen in the left lower pole. 3. Cholelithiasis without CT evidence of acute cholecystitis. 4. Advanced colonic diverticulosis without CT evidence of acute diverticulitis. 5. A right inguinal hernia contains a small segment of the bladder. 6. Question irregular wall thickening of the distal stomach. This is not well assessed by CT and can be further evaluated with endoscopy if clinically warranted. 7. Additional findings as above. (1) GI bleed GI bleed type/associated pathology: diverticulitis Qualified Code(s): K57.93 - Diverticulitis of intestine, part unspecified, without perforation or abscess with bleeding
--- NOTE | 2021-01-18 10:26 | Electrocardiogram Report ---
Test Reason : Blood Pressure : / mmHG Vent. 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
[2021-01-18] MEDS: SODIUM CHLORIDE 0.9% 1000ML 1,000 ML IV SCH (10:51)
[2021-01-18 11:59] LABS: Hematocrit (blood only) 26.9 % (42-52); Hemoglobin 9.4 g/dL (14.0-18.0)
[2021-01-18] MEDS: MAGNESIUM SULFATE / D5W 1 GM/100 ML BAG IV SCH ×3 (12:41→16:27)
--- NOTE | 2021-01-18 17:25 | Hospitalist Progress Note ---
Date of Service January 18, 2021 Assessment & Plan (1) GI bleed: Plan: Present on admission with bright red GI bleed Likely to be diverticular with the patients history of bleeds in the past CT abd reviewed showing diverticulosis without diverticulitis, also noted to be a 2.5 cm stone in the left ureter, as well as 2 other less than 5 mm stones. Hemoglobin on admission above 13 then dropped to 9.4 this morning Patient had 2 unit PRBC last night and 1 unit platelet Gastro on board Recommend to continue Protonix IV twice daily Started on clear liquid diet No plan for inpatient scope Continue monitor H&H (2) Diverticulosis of intestine with bleeding: Plan: - hx of such few years ago where he required blood transfusion, per pt had outpatient colonoscopy at [facility] after that in Dec 2017 (3) Alberto's esophagus: Plan: - hx of such (4) BPH (benign prostatic hyperplasia): Plan: Kidney Stone cont flomax Noted CT findings of left sided 2.5 cm ureter stone causing moderate to severe hydroureteronephrosis Urology on board-plan for outpatient follow-up for management of the kidney stone Cr 0.96 and BUN 22- follow with am labs (5) HTN (hypertension): Plan: - Continue metoprolol 25 mg QAM , lisinopril 5 mg daily, hold baby aspirin (6) HLD (hyperlipidemia): Plan: - Cont rosuvastatin 40 mg daily (7) Diabetes mellitus type 2 with complications: Plan: Most recent hemoglobin A1c 6.7 Continue monitor blood sugar (8) Diabetic neuropathy: Plan: - Hx of such (9) Restless leg syndrome: Plan: - Cont primapaxel (10) Depression with anxiety: Plan: - cont sertraline DVT ppx: teds, scds CODE: Full Dispo: From home, likely to remain in the hospital x 1-2 days Admission and Anticipated Discharge Date Admission Date: January 17, 2021 Subjective Patient was seen and examined for follow-up of GI bleed Lying in bed with no acute distress Patient said that last bowel movement was last night He was given 2 units blood on admission Currently he is on clear liquid diet and tolerated very well Denies any chest pain, palpitation, dizziness, shortness of breath. Review of Systems Review of Systems: All systems reviewed & are unremarkable except as noted in Subjective Physical Exam Physical Exam: General- No acute distress Head- atraumatic Eyes- PERRL, EOMI, ENT- oropharynx clear Neck- supple, no JVD Lungs- clear to auscultation Heart- regular rhythm; no murmur Abdomen- normal bowel sounds, soft, nontender Extremities- no calf tenderness Neuro- alert, oriented x 3; PERRL, EOMI; no facial palsy; no dysarthria Skin- warm & dry Results & Data Results & Data ([facility]) Vital Signs (Past 12 Hours) Vital Signs Temp Pulse Resp BP Pulse Ox 01/18/21 16:46 36.5 C 72 20 155/78 H 95 01/18/21 12:00 36.5 C 70 18 137/73 96 01/18/21 08:05 36.6 C 63 20 93/46 L 93 01/18/21 06:49 36.4 C L 71 20 132/64 98 (1) GI bleed GI bleed type/associated pathology: diverticulitis Qualified Code(s): K57.93 - Diverticulitis of intestine, part unspecified, without perforation or abscess with bleeding
[2021-01-18 17:48] LABS: Hematocrit (blood only) 23.6 % (42-52); Hemoglobin 8.4 g/dL (14.0-18.0)
[2021-01-18] MEDS: LATANOPROST 0.005% OP SOLN 2.5 ML BTL OP SCH (21:37)
[2021-01-18] MEDS: PRAMIPEXOLE DIHYDROCHLO 0.25 MG TAB PO SCH (21:37)
[2021-01-18] MEDS: INSULIN GLARGINE SOLOSTAR 100 UNITS/ML 3 ML PEN SQ SCH (21:38)
[2021-01-19 06:57] LABS: Hemoglobin 8.1 g/dL (14.0-18.0); Mean Corpuscular Hgb Conc 35.2 g/dL (32-36); Mean Corpuscular Volume 90.9 fL (80-100); Mean Platelet Volume 9.2 fL (7.4-10.4); Platelet Count 118 K/uL (130-400); RDW Coefficient of Variation 15.4 % (11.5-14.5); RDW Standard Deviation 50.9 fL (36.4-46.3); Red Blood Count 2.53 M/uL (4.7-6.1); White Blood Count 4.64 K/uL (4.8-10.8)
[2021-01-19 07:02] LABS: Albumin Level 2.9 gm/dl (3.4-5.0); BUN Creatinine Ratio 14.6 (10-20); Calcium 7.4 mg/dl (8.5-10.1); Creatinine Clr Calc Pharmacy 94.2 ml/min; Est GFR (African American) 100.8 ml/min; Est GFR (Non-African American) 86.9 ml/min
[2021-01-19 07:04] LABS: Albumin Globulin Ratio 1.1 (0.9-2); Bilirubin,Total 0.5 mg/dl (0.2-1); Globulin 2.6 gm/dl (2.5-4.0); Total Protein 5.5 gm/dl (6.4-8.2)
[2021-01-19] MEDS: INSULIN ASPART 100 UNITS/ML 3 ML PEN SC SCH ×4 (08:43→21:20)
[2021-01-19] MEDS: PANTOprazole 40 MG in SYRINGE 0 ML IV SCH ×2 (09:10→21:19)
--- NOTE | 2021-01-19 09:48 | Urology Progress Note ---
Date of Service January 19, 2021 Assessment & Plan (1) Calculus of proximal left ureter: Plan: 76 year-old male patient, admitted with GI bleed, found to have obstructing 2.5cm proximal left ureteral stone. - Plan of care reviewed with Dr. De La Torre, on-call urologist. - He remains afebrile, vital signs stable. - Labs reviewed - white count and creatinine stable. - Discussed stone treatment options with patient in detail. - Given his stability without fevers or flank pain, no acute intervention warranted at this time. - Will plan for definitive stone management once stabilized from GI perspective. - Patient previously followed with [facility] urology as outpatient, requesting to now follow with [facility]. - Will arrange outpatient follow-up with our service once discharged to finalize plans for stone intervention. - Urology will sign off at this time. Please consult our service with any acute changes in patient status of if patient develops fever >101F, intractable pain or nausea, as this will necessitate urgent surgical intervention. Admission and Anticipated Discharge Date Admission Date: January 17, 2021 Subjective Pt examined at bedside this AM, feeling "average". He is alert, awake, non-toxic. He denies abdominal or flank pain. Does have abdominal cramping, feels he may have a bowel movement soon. Does have chronic lower back pain, in coccyx area. No fevers or chills. Denies nausea or vomiting. Has not had any blood in stool since yesterday hand filer balance wheel. Voiding without difficulty. Denies hematuria and dysuria. Does note baseline urinary frequency, denies urgency. Feels he is emptying his bladder well. Chart review: Afebrile Wbc 4.65 Hgb 8.1 (previously 8.4) Creatinine 0.81 Urinalysis ordered, not collected. Denies additional urologic concerns today. Review of Systems Constitutional: as per Subjective / HPI Gastrointestinal: as per Subjective / HPI Genitourinary: + as per Subjective / HPI Physical Exam Constitutional: well developed and well nourished; no acute distress and not ill appearing Respiratory: normal respiratory effort and able to speak in complete sentences; no labored breathing and no audible wheezes Gastrointestinal (Abdomen): Inspection/Auscultation: abdomen normal to inspection; abdomen not distended Percussion/Palpation: abdomen soft; abdomen nontender and no guarding Musculoskeletal: Head/Neck/Chest: normocephalic Neurologic: moves all extremities and awake Psychiatric: Orientation: alert, oriented x 3 and cooperative Genitourinary: no CVA tenderness Results & Data ([facility]) Vital Signs (Past 12 Hours) Vital Signs Temp Pulse Resp BP Pulse Ox 01/19/21 07:10 36.6 C 64 16 114/61 97 01/19/21 04:24 36.5 C 63 18 112/55 L 95 01/18/21 23:16 36.6 C 60 18 111/56 L 94 PG Care Time/CCT Total # of Minutes Spent Total Time Spent with Patient: Total time spent is greater than 50% in coordination of care (as documented) at patient's floor/unit and/or counseling patient: Coding Level of Care Code 01691 Subseq Hosp Care Lvl 2 Diagnoses Calculus of proximal left ureter N20.1
--- NOTE | 2021-01-19 10:44 | Gastroenterology Progress Note ---
Date of Service January 19, 2021 Assessment & Plan (1) GI bleed: Plan: This is a 76-year-old male admitted with gross rectal bleeding, and GI consulted for GI bleed. On admission pt had frequent large bouts of rectal bleeding and hypotension, however symptoms resolved. He completed 1/2 a bowel prep the night of admission but stopped D/t n/v. Presentation overall consistent with likely diverticular hemorrhage. On exam abd soft, nontender. It was reported after I left the floor pt began having recurrent rectal bleeding w/ lightheadedness. HGB 8.1 today prior to symptoms recurring; BUN WNL. - Concern for recurrent lower GI bleed this AM - Stat H&H, transfuse PRN - Monitor VS/BP, resuscitate as needed - Will obtain stat bleeding scan - Pt ate full liquids this AM; if actively bleeding may need to undergo IR treatment - Keep NPO - Continue IV PPI - Hold ASA Thank you for allowing us to participate in the care of this patient. Please call with any acute changes, questions or concerns. Please see addendum below with additional recommendation from my supervising physician. Admission and Anticipated Discharge Date Admission Date: January 17, 2021 Supervising Physician Co-Signing Physician Notes I performed a history and physical examination of the patient today, including specifically on physical exam - soft abdomen. I have discussed the patient's management with the advanced practitioner. Please refer to the nurse practitioner's note for the documented findings and plan of care. Active diverticular bleeding Plan for colonoscopy today Patient was explained in detail regarding risks, benefits, limitations and alternatives of the above endoscopic procedure. Risks of intravenous sedation used for procedure were also explained. Risks include, but not limited to perforation, bleeding, infection, respiratory distress, cardiac arrest and . Patient is also aware about the possibility of missed lesion. Patient's questions were answered. The patient verbalized understanding the information and agreed to undergo the procedure. Subjective Patient seen and examined, chart reviewed. Overnight had no BRBPR. Earlier this AM had a "drop." Has been passing gas; preceded by some lower abd "gas pains" which resolve. Ate cream of wheat for breakfast. Denies n/v, CP, SOB, syncope, lightheadedness, melena, hematemesis. After I saw the pt, nurse staff TigerTexted me that pt had several BMs with blood; concern for active bleeding, was feeling lightheaded. Review of Systems Review of Systems: A complete review of systems was negative except as noted in HPI Physical Exam Constitutional: WD/WN, vitals as above Neck: trachea midline, no thyromegaly Respiratory: normal respiratory effort, lungs clear to auscultation Cardiovascular: RRR, no murmur, no edema Gastrointestinal (Abdomen): normal bowel sounds, soft, nontender, no hepatosplenomegaly Skin: no rashes, warm and dry Psychiatric: A+Ox3, euthymic affect Results & Data ([facility]) Vital Signs (Past 12 Hours) Vital Signs Temp Pulse Resp BP Pulse Ox 01/19/21 07:10 36.6 C 64 16 114/61 97 01/19/21 04:24 36.5 C 63 18 112/55 L 95 01/18/21 23:16 36.6 C 60 18 111/56 L 94 Laboratory Results 01/19/21 01/19/21 01/19/21 Range/Units 07:12 05:56 05:56 WBC 4.64 L (4.8-10.8) K/uL RBC 2.53 L (4.7-6.1) M/uL Hgb 8.1 L (14.0-18.0) g/dL Hct 23.0 L (42-52) % MCV 90.9 (80-100) fL MCH 32.0 (25-34) pg MCHC 35.2 (32-36) g/dL RDW Std Deviation 50.9 H (36.4-46.3) fL RDW Coeff of Lachelle 15.4 H (11.5-14.5) % Plt Count 118 L (130-400) K/uL MPV 9.2 (7.4-10.4) fL Sodium 142 (136-145) mmol/L Potassium 4.0 (3.5-5.1) mmol/L Chloride 116 H (98-107) mmol/L Carbon Dioxide 23 (21-32) mmol/L Anion Gap 3.0 (3-11) BUN 12 (7-18) mg/dl Creatinine 0.81 D (0.6-1.4) mg/dl Est Cr Clr Drug Dosing 94.2 ml/min Est GFR ( Amer) 100.8 ml/min Est GFR (Non-Af Amer) 86.9 ml/min BUN/Creatinine Ratio 14.6 (10-20) Glucose 136 H (70-99) mg/dl POC Glucose 135 H (70-99) mg/dl Calcium 7.4 L (8.5-10.1) mg/dl Total Bilirubin 0.5 (0.2-1) mg/dl AST 13 L (15-37) U/L ALT 14 (12-78) U/L Alkaline Phosphatase 33 L (45-117) U/L Total Protein 5.5 L (6.4-8.2) gm/dl Albumin 2.9 L (3.4-5.0) gm/dl Globulin 2.6 (2.5-4.0) gm/dl Albumin/Globulin Ratio 1.1 (0.9-2) Blood Type Antibody Screen Crossmatch 01/18/21 01/18/21 01/18/21 Range/Units 20:34 17:37 16:07 WBC (4.8-10.8) K/uL RBC (4.7-6.1) M/uL Hgb 8.4 L (14.0-18.0) g/dL Hct 23.6 L (42-52) % MCV (80-100) fL MCH (25-34) pg MCHC (32-36) g/dL RDW Std Deviation (36.4-46.3) fL RDW Coeff of Lachelle (11.5-14.5) % Plt Count (130-400) K/uL MPV (7.4-10.4) fL Sodium (136-145) mmol/L Potassium (3.5-5.1) mmol/L Chloride (98-107) mmol/L Carbon Dioxide (21-32) mmol/L Anion Gap (3-11) BUN (7-18) mg/dl Creatinine (0.6-1.4) mg/dl Est Cr Clr Drug Dosing ml/min Est GFR ( Amer) ml/min Est GFR (Non-Af Amer) ml/min BUN/Creatinine Ratio (10-20) Glucose (70-99) mg/dl POC Glucose 156 H 137 H (70-99) mg/dl Calcium (8.5-10.1) mg/dl Total Bilirubin (0.2-1) mg/dl AST (15-37) U/L ALT (12-78) U/L Alkaline Phosphatase (45-117) U/L Total Protein (6.4-8.2) gm/dl Albumin (3.4-5.0) gm/dl Globulin (2.5-4.0) gm/dl Albumin/Globulin Ratio (0.9-2) Blood Type Antibody Screen Crossmatch 01/18/21 01/18/21 01/17/21 Range/Units 11:42 11:14 14:43 WBC (4.8-10.8) K/uL RBC (4.7-6.1) M/uL Hgb 9.4 L (14.0-18.0) g/dL Hct 26.9 L (42-52) % MCV (80-100) fL MCH (25-34) pg MCHC (32-36) g/dL RDW Std Deviation (36.4-46.3) fL RDW Coeff of Lachelle (11.5-14.5) % Plt Count (130-400) K/uL MPV (7.4-10.4) fL Sodium (136-145) mmol/L Potassium (3.5-5.1) mmol/L Chloride (98-107) mmol/L Carbon Dioxide (21-32) mmol/L Anion Gap (3-11) BUN (7-18) mg/dl Creatinine (0.6-1.4) mg/dl Est Cr Clr Drug Dosing ml/min Est GFR ( Amer) ml/min Est GFR (Non-Af Amer) ml/min BUN/Creatinine Ratio (10-20) Glucose (70-99) mg/dl POC Glucose 203 H (70-99) mg/dl Calcium (8.5-10.1) mg/dl Total Bilirubin (0.2-1) mg/dl AST (15-37) U/L ALT (12-78) U/L Alkaline Phosphatase (45-117) U/L Total Protein (6.4-8.2) gm/dl Albumin (3.4-5.0) gm/dl Globulin (2.5-4.0) gm/dl Albumin/Globulin Ratio (0.9-2) Blood Type A Positive Antibody Screen NEGATIVE Crossmatch See Detail (1) GI bleed GI bleed type/associated pathology: diverticulitis Qualified Code(s): K57.93 - Diverticulitis of intestine, part unspecified, without perforation or abscess with bleeding
[2021-01-19 12:02] LABS: Hematocrit (blood only) 23.4 % (42-52); Hemoglobin 8.2 g/dL (14.0-18.0)
[2021-01-19] MEDS ORDERED: SODIUM CHLORIDE 0.9% 500 ML IV SCH (14:15)
[2021-01-19] MEDS ORDERED: SODIUM CHLORIDE 0.9% 250 ML IV PRN ×3 (15:11→22:37)
--- NOTE | 2021-01-19 15:18 | Nuclear Medicine Report ---
NM GI bleeding CLINICAL HISTORY: 76 years-old Male with recurrent acute rectal bleeding. Patient presents with acut e GI bleed TECHNIQUE: Following the intravenous administration of red cells labeled with 23.5 mCi of technetium -99m Ultratag, sequential abdominal images were obtained for 60 minutes. Injection was made via the right upper extremity. COMPARISON: CT abdomen and pelvis 01/17/2021 FINDINGS: There is focal abnormal accumulation of labeled red cell within the mid transverse colon which accumu lates at approximately 20 minutes and subsequently extends into the splenic flexure, descending colon and sigmoid. IMPRESSION: Acute active gastro intestinal bleeding of the mid transverse colon. Numerous colonic di verticula are noted within this distribution on comparison CT. ACT 112: Negative or not required by law. The above report was generated using voice recognition software. It may contain grammatical, syntax o r spelling errors. Electronically signed by: Yunier Gutierrez M.D. 01/19/2021 3:17 PM
--- NOTE | 2021-01-19 17:43 | Anesthesiology Consultation ---
Date of Service January 19, 2021 Assessment & Plan Chart Review Chart Review: Acceptable Risk for Surgery Consults Requested none History Surgery Operation Date: 01/19/21 13:25 Proposed Procedures p Flexible Sigmoidoscopy - Zandra Steve MD Operation Date: 01/19/21 17:00 Proposed Procedures p Flexible Sigmoidoscopy Dr Steve - Zandra Steve MD Height/Weight Height: 6 ft 3 in Weight: 88.4 kg Allergies Allergy/AdvReac Type Severity Reaction Status Date / Time No Known Allergies Allergy Unverified 01/17/21 15:26 Medications Home Medications Medication Instructions Recorded Confirmed Last Taken gabapentin 300 mg capsule 600 mg PO TID 12/29/17 01/17/21 01/17/21 magnesium oxide 400 mg (241.3 mg 400 mg PO QAM 12/29/17 01/17/21 01/17/21 magnesium) tablet (MgO) metformin 1,000 mg tablet 1,000 mg PO BIDM 12/29/17 01/17/21 01/17/21 metoprolol tartrate 25 mg tablet 25 mg PO DAILY 12/29/17 01/17/21 01/17/21 multivit with minerals-iron 18 1 tab PO QAM 12/29/17 01/17/21 01/17/21 mg-folic ac 400 mcg-vit K 25 mcg tablet (Multi-Day Plus Minerals) omega 8-[id number]-ucg-fish oil 1,000 mg 1,000 mg PO BID 12/29/17 01/17/21 01/17/21 (120 mg-180 mg) capsule (Fish Oil) pantoprazole 40 mg tablet,delayed 40 mg PO BID 12/29/17 01/17/21 01/17/21 release (Protonix) pramipexole 0.25 mg tablet 0.25 mg PO HS 12/29/17 01/17/21 01/16/21 sertraline 50 mg tablet 50 mg PO HS 12/29/17 01/17/21 01/16/21 tamsulosin 0.4 mg capsule 0.4 mg PO QPM 12/29/17 01/17/21 01/16/21 insulin glargine 100 unit/mL 15 unit SUBCUT HS 07/01/19 01/17/21 01/16/21 subcutaneous solution latanoprost 0.005 % eye drops 1 drp OPHTHALMIC (EYE) HS 07/01/19 01/17/21 01/16/21 lisinopril 5 mg tablet 5 mg PO QAM 07/01/19 01/17/21 01/17/21 aspirin 81 mg tablet,delayed 81 mg PO QAM 01/17/21 01/17/21 01/17/21 release rosuvastatin 40 mg tablet 4 mg PO HS 01/17/21 01/17/21 01/16/21 Active Medications Generic Name Dose Route Start Last Admin Trade Name Freq PRN Reason Stop Dose Admin Pantoprazole Sodium 40 mg/ 10 mls @ 5 mls/min 01/17/21 21:19 01/19/21 09:10 Syringe IV 02/16/21 21:18 5 mls/min BID EVA Administration Insulin Aspart 0 units 01/17/21 21:19 01/19/21 16:54 Insulin Aspart 100 Units/Ml 3 Ml Pen SC 02/16/21 21:18 Not Given ACHS EVA Insulin Glargine 7 units 01/17/21 21:00 01/18/21 21:38 Insulin Glargine Solostar 100 Units/Ml 3 Ml Pen SQ 02/16/21 20:59 7 units HS EVA Administration Latanoprost 1 drops 01/17/21 21:19 01/18/21 21:37 Latanoprost 0.005% Op Soln 2.5 Ml Btl OP 02/16/21 21:18 1 drops HS EVA Administration Ondansetron HCl 4 mg 01/17/21 21:19 01/18/21 00:38 Ondansetron Inj 2 Mg/Ml 2 Ml Vial IV 02/16/21 21:18 4 mg Q4H PRN Administration Nausea And Vomiting Pramipexole Dihydrochloride 0.25 mg 01/17/21 21:19 01/18/21 21:37 Pramipexole Dihydrochlo 0.25 Mg Tab PO 02/16/21 21:18 0.25 mg HS EVA Administration NPO Date Last Intake of Fluids: 01/19/21 Time Last Intake of Fluids: 08:00 Date Last Intake of Solids: 01/19/21 Time Last Intake of Solids: 08:00 Past Medical History Medical History (Updated 01/18/21 @ 07:55 by DAISY Crabtree) Alberto's esophagus BPH (benign prostatic hyperplasia) 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 Diabetes mellitus, type 2 Diabetic neuropathy Diverticulitis HLD (hyperlipidemia) HTN (hypertension) Restless leg syndrome Squamous cell carcinoma of nose Past Family History Family History Other No pertinent family history Past Surgical History Surgical History History of total knee arthroplasty Bilateral Status post total shoulder arthroplasty Social History Smoking Status: Former smoker Smoking End Date: 1989 Hx Alcohol Use: Yes Alcohol type: beer alcohol intake frequency: holidays/special occasions only Hx Substance Use: No substance use type: does not use Physical Exam Vital Signs Last Vital Signs Temp 36.3 C L 01/19/21 17:29 Pulse 93 H 01/19/21 17:29 Resp 20 01/19/21 17:29 BP 142/52 H 01/19/21 17:29 Pulse Ox 98 01/19/21 17:29 Testing Laboratory Results 01/19/21 11:51 01/19/21 05:56 PT 10.9 Seconds (9.0-12.0) 01/17/21 14:38 INR 1.1 (0.9-1.1) 01/17/21 14:38 APTT 28.7 Seconds (21.0-31.0) 01/17/21 14:38 Hemoglobin A1c 6.7 % (4.5-5.6) H 01/18/21 03:22 Blood Type A Positive 01/17/21 14:43 Antibody Screen NEGATIVE 01/17/21 14:43 01/19/21 01/19/21 11:16 07:12 POC Glucose 212 H 135 H
[2021-01-19] MEDS ORDERED: fentaNYL citrate 100 MCG/2 ML VIAL ONE (18:00)
[2021-01-19] MEDS ORDERED: LIDOCAINE 2% 2 ML VIAL/AMP(20MG/ML) INFIL ONE (18:00)
[2021-01-19] MEDS ORDERED: PROPOFOL IV EMULSION 10 MG/ML 20 ML VIAL IV ONE ×2 (18:00→18:15)
--- NOTE | 2021-01-19 18:33 | Operative Report ---
Post Operative Report Pre & Post Diagnosis Operation Date: 01/19/21 13:25 Pre-Op Diagnosis: Gastrointestinal bleeding Post-Op Diagnosis: Gastrointestinal bleeding Operation Date: 01/19/21 17:00 <No data on this case meets the specified criteria> I identified the patient and participated in the time-out.: Yes Procedure Operation Date: 01/19/21 13:25 Actual Procedures p Flexible Sigmoidoscopy(Not Applicable) - Zandra Steve MD Operation Date: 01/19/21 17:00 <No data on this case meets the specified criteria> Surgeon Zandra Steve MD First Line Supervisor None Estimated Blood Loss 0 Findings See Below (Pancolonic diverticulosis with old blood, no active bleeding seen.) Specimens None Description of Procedure Colonoscopy I attest to the content of the Intraoperative Record and any orders documented therein. Any exceptions are noted below.
--- NOTE | 2021-01-19 18:45 | GI REPORT ---
Patient Name: Vahe Resendez Procedure Date: 01/19/2021 5:44 PM Date of : 1945 Admit Type: Inpatient Age: 76 Gender: Male Attending MD: Zandra Steve MD Procedure: Colonoscopy Providers: Zandra Steve MD Referring MD: LIZ VALDIVIA Indications: Rectal bleeding Medicines: Propofol per Anesthesia Complications: No immediate complications. Estimated Blood Loss: Estimated blood loss: none. Procedure: Pre-Anesthesia Assessment: - Prior to the procedure, a History and Physical was performed, and patient medications, allergies and sensitivities were reviewed. The patient's tolerance of previous anesthesia was reviewed. - The risks and benefits of the procedure and the sedation options and risks were discussed with the patient. All questions were answered and informed consent was obtained. - Patient identification and proposed procedure were verified prior to the procedure by the physician and the nurse. The procedure was verified in the procedure room. - Pre-procedure physical examination revealed no contraindications to sedation. After I obtained informed consent, the scope was passed under direct vision. Throughout the procedure, the patient's blood pressure, pulse, and oxygen saturations were monitored continuously. The Colonoscope was introduced through the anus and advanced to the cecum, identified by appendiceal orifice and ileocecal valve. After I obtained informed consent, the scope was passed under direct vision. Throughout the procedure, the patient's blood pressure, pulse, and oxygen saturations were monitored continuously. The colonoscopy was performed without difficulty. The patient tolerated the procedure well. The quality of the bowel preparation was fair. The ileocecal valve, appendiceal orifice, and rectum were photographed. Findings: The perianal and digital rectal examinations were normal. Scattered small and large-mouthed diverticula were found in the entire colon. No active bleeding seen despite excessive lavage and probing most of the diverticulosis. Old blood was found in the entire colon. Non-bleeding internal hemorrhoids were found during retroflexion. The hemorrhoids were small. Impression: - Diverticulosis in the entire examined colon with old blood but no evidence of active bleeding seen, likely resolved spontaneously. Recommendation: - [facility]. - Clear liquid diet. - If bleeding recurs then transfer to tertiary care center for IR embolization. Zandra Steve MD 01/19/2021 6:44:33 PM This report has been signed electronically. Note Initiated On: 01/19/2021 5:44 PM Number of Addenda: 0 I attest to the content of the Intraoperative Record and orders documented therein, exceptions below {[id number]}
[2021-01-19] MEDS ORDERED: PROMETHAZINE HCL 12.5 MG in SODIUM CHLORIDE 0.9% 50 ML IV PRN (18:59)
--- NOTE | 2021-01-19 20:20 | Anesthesiology Progress Note ---
Date of Service January 19, 2021 Anesthesia Post Procedure Vital Signs Vital Signs: Temp Pulse Pulse Resp BP BP BP 01/19/21 19:40 81 14 147/69 H 01/19/21 19:25 36.2 C L 76 16 120/69 01/19/21 19:15 76 18 104/47 L 01/19/21 19:05 76 16 115/59 L 01/19/21 18:55 75 16 103/61 01/19/21 18:46 36.3 C L 80 24 95/62 L 01/19/21 17:30 36.3 C L 93 H 20 142/52 H 01/19/21 17:29 36.3 C L 93 H 20 142/52 H 01/19/21 17:08 36.3 C L 102 H 20 123/46 L 01/19/21 17:05 36.3 C L 97 H 20 123/46 L 01/19/21 15:47 36.4 C L 85 20 138/83 01/19/21 15:42 36.5 C 84 20 110/77 01/19/21 15:32 36.4 C L 83 18 118/70 01/19/21 14:00 101/61 01/19/21 11:54 36.4 C L 75 20 133/72 01/19/21 07:10 36.6 C 64 16 114/61 01/19/21 04:24 36.5 C 63 18 112/55 L 01/18/21 23:16 36.6 C 60 18 111/56 L Pulse Ox 01/19/21 19:40 94 01/19/21 19:25 98 01/19/21 19:15 97 01/19/21 19:05 94 01/19/21 18:55 98 01/19/21 18:46 100 01/19/21 17:30 98 01/19/21 17:29 98 01/19/21 17:08 97 01/19/21 17:05 01/19/21 15:47 99 01/19/21 15:42 97 01/19/21 15:32 98 01/19/21 14:00 01/19/21 11:54 96 01/19/21 07:10 97 01/19/21 04:24 95 01/18/21 23:16 94 Transfer of Care Handoff Completed per policy Notes Mental Status: alert / awake / arousable and participated in evaluation Patient Amnestic to Procedure: Yes Nausea / Vomiting: adequately controlled Pain: adequately controlled Airway Patency, RR, SpO2: stable & adequate BP & HR: stable & adequate Hydration State: stable & adequate Anesthetic Complications: no major complications apparent
[2021-01-19 20:51] LABS: Appearance Urine Clear (Clear); Bacteria Urine Automated Negative (Negative); Bilirubin Urine Negative (Negative); Blood Urine Trace (Negative); Color Urine Yellow; Glucose Urine UA Negative (Negative); Ketones Urine Negative (Negative); Leukocyte Esterase Urine Trace (Negative); Nitrite Urine Negative (Negative); Protein Urine Negative (Negative); RBC Urine Automated 0-4 /hpf (0-4); Specific Gravity Urine 1.014 (1.000-1.030); Urobilinogen Urine Negative (Negative); pH Urine 5.5 (4.5-7.5)
[2021-01-19] MEDS: PRAMIPEXOLE DIHYDROCHLO 0.25 MG TAB PO SCH (21:19)
[2021-01-19] MEDS: LATANOPROST 0.005% OP SOLN 2.5 ML BTL OP SCH (21:20)
[2021-01-19] MEDS: INSULIN GLARGINE SOLOSTAR 100 UNITS/ML 3 ML PEN SQ SCH (21:20)
[2021-01-19 21:48] LABS: Hematocrit (blood only) 20.8 % (42-52); Hemoglobin 7.4 g/dL (14.0-18.0)
--- NOTE | 2021-01-19 22:39 | Hospitalist Progress Note ---
Date of Service January 19, 2021 Assessment & Plan (1) GI bleed: Plan: Present on admission with bright red GI bleed Likely to be diverticular with the patients history of bleeds in the past CT abd reviewed showing diverticulosis without diverticulitis, also noted to be a 2.5 cm stone in the left ureter, as well as 2 other less than 5 mm stones. Hemoglobin on admission above 13.5 Status post 2 units PRBC and 1 unit of platelet on 01/17 Hemoglobin today 8.1 This morning patient started to have recurrent GI bleed, felt dizzy and looked pale Bleeding scan showed acute active gastro intestinal bleeding of the mid transverse colon. We will give 1 unit PRBC stat and normal saline 500 mL bolus was given Gastro on board Case discussed with GI that plan for flexible sigmoid today We will make n.p.o. for now Scope showed Diverticulosis in the entire examined colon with old blood but no evidence of active bleeding seen, likely resolved spontaneously. Case discussed again with GI that suggest if bleeding recurs then transfer to tertiary care center for IR embolization. Continue monitor H&H Will start on clear liquid diet (2) Diverticulosis of intestine with bleeding: Plan: - hx of such few years ago where he required blood transfusion, per pt had outpatient colonoscopy at [facility] after that in Dec 2017 (3) Alberto's esophagus: Plan: - hx of such (4) BPH (benign prostatic hyperplasia): Plan: Kidney Stone cont flomax Noted CT findings of left sided 2.5 cm ureter stone causing moderate to severe hydroureteronephrosis Urology on board-plan for outpatient follow-up for management of the kidney stone Cr 0.96 and BUN 22- follow with am labs (5) HTN (hypertension): Plan: - Continue metoprolol 25 mg QAM , lisinopril 5 mg daily, hold baby aspirin (6) HLD (hyperlipidemia): Plan: - Cont rosuvastatin 40 mg daily (7) Diabetes mellitus type 2 with complications: Plan: Most recent hemoglobin A1c 6.7 Continue monitor blood sugar (8) Diabetic neuropathy: Plan: - Hx of such (9) Restless leg syndrome: Plan: - Cont primapaxel (10) Depression with anxiety: Plan: - cont sertraline DVT ppx: teds, scds CODE: Full Dispo: From home, likely to remain in the hospital x 1-2 days Admission and Anticipated Discharge Date Admission Date: January 17, 2021 Subjective Patient was seen and examined for follow-up of GI bleed Patient has been having recurrent GI bleed today He said that he had about more than 4 episodes of bright red bowel movement He said that he is having cramping abdominal pain He was feeling dizzy and looked pale during the bleeding scan I called blood bank to transfuse stat PRBCs GI was notified and plan to do a flex sig since bleeding scan showed active bleeding Review of Systems Review of Systems: All systems reviewed & are unremarkable except as noted in Subjective Physical Exam Physical Exam: General- No acute distress Head- atraumatic Eyes- PERRL, EOMI, ENT- oropharynx clear Neck- supple, no JVD Lungs- clear to auscultation Heart- regular rhythm; no murmur Abdomen- normal bowel sounds, +cramping tenderness Extremities- no calf tenderness Neuro- alert, oriented x 3; PERRL, EOMI; no facial palsy; no dysarthria Skin- warm & dry Results & Data Results & Data ([facility]) Vital Signs (Past 12 Hours) Vital Signs Temp Pulse Pulse Resp BP BP BP 01/19/21 22:27 36.7 C 73 18 121/78 01/19/21 22:09 36.4 C L 93 H 18 132/55 L 01/19/21 21:07 75 18 112/62 01/19/21 20:46 70 20 100/55 L 01/19/21 20:22 110 H 20 128/62 01/19/21 20:17 94 H 20 159/52 H 01/19/21 20:01 36.5 C 93 H 18 159/52 H 01/19/21 19:40 81 14 147/69 H 01/19/21 19:25 36.2 C L 76 16 120/69 01/19/21 19:15 76 18 104/47 L 01/19/21 19:05 76 16 115/59 L 01/19/21 18:55 75 16 103/61 01/19/21 18:46 36.3 C L 80 24 95/62 L 01/19/21 17:30 36.3 C L 93 H 20 142/52 H 01/19/21 17:29 36.3 C L 93 H 20 142/52 H 01/19/21 17:08 36.3 C L 102 H 20 123/46 L 01/19/21 17:05 36.3 C L 97 H 20 123/46 L 01/19/21 15:47 36.4 C L 85 20 138/83 01/19/21 15:42 36.5 C 84 20 110/77 01/19/21 15:32 36.4 C L 83 18 118/70 01/19/21 14:00 101/61 01/19/21 11:54 36.4 C L 75 20 133/72 Pulse Ox 01/19/21 22:27 93 01/19/21 22:09 97 01/19/21 21:07 93 01/19/21 20:46 97 01/19/21 20:22 95 01/19/21 20:17 97 01/19/21 20:01 97 01/19/21 19:40 94 01/19/21 19:25 98 01/19/21 19:15 97 01/19/21 19:05 94 01/19/21 18:55 98 01/19/21 18:46 100 01/19/21 17:30 98 01/19/21 17:29 98 01/19/21 17:08 97 01/19/21 17:05 01/19/21 15:47 99 01/19/21 15:42 97 01/19/21 15:32 98 01/19/21 14:00 01/19/21 11:54 96 (1) GI bleed GI bleed type/associated pathology: diverticulitis Qualified Code(s): K57.93 - Diverticulitis of intestine, part unspecified, without perforation or abscess with bleeding
[2021-01-20 07:29] LABS: Hematocrit (blood only) 20.5 % (42-52); Mean Corpuscular Hemoglobin 31.1 pg (25-34); Mean Corpuscular Hgb Conc 34.1 g/dL (32-36); Mean Corpuscular Volume 91.1 fL (80-100); Platelet Count 108 K/uL (130-400); RDW Coefficient of Variation 15.7 % (11.5-14.5); RDW Standard Deviation 51.6 fL (36.4-46.3); Red Blood Count 2.25 M/uL (4.7-6.1); White Blood Count 5.31 K/uL (4.8-10.8)
[2021-01-20] MEDS ORDERED: SODIUM CHLORIDE 0.9% 250 ML IV PRN (07:33)
[2021-01-20 07:49] LABS: Albumin Level 2.6 gm/dl (3.4-5.0); BUN Creatinine Ratio 12.9 (10-20); Calcium 7.3 mg/dl (8.5-10.1); Creatinine Clr Calc Pharmacy 88.7 ml/min; Est GFR (African American) 98.3 ml/min; Est GFR (Non-African American) 84.8 ml/min; Potassium 4.2 mmol/L (3.5-5.1)
[2021-01-20 07:52] LABS: Albumin Globulin Ratio 1.2 (0.9-2); Bilirubin,Total 0.6 mg/dl (0.2-1); Globulin 2.2 gm/dl (2.5-4.0); Total Protein 4.8 gm/dl (6.4-8.2)
[2021-01-20] MEDS: INSULIN ASPART 100 UNITS/ML 3 ML PEN SC SCH ×4 (08:00→20:32)
[2021-01-20] MEDS: PANTOprazole 40 MG in SYRINGE 0 ML IV SCH ×2 (08:01→20:37)
[2021-01-20] MEDS ORDERED: FUROSEMIDE 20 MG in SYRINGE 0 ML IV ONE (12:45)
[2021-01-20] MEDS: ACETAMINOPHEN 325 MG TAB PO PRN (20:35)
[2021-01-20] MEDS: PRAMIPEXOLE DIHYDROCHLO 0.25 MG TAB PO SCH (20:37)
[2021-01-20] MEDS: INSULIN GLARGINE SOLOSTAR 100 UNITS/ML 3 ML PEN SQ SCH (20:37)
[2021-01-20] MEDS: LATANOPROST 0.005% OP SOLN 2.5 ML BTL OP SCH (20:39)
[2021-01-20 21:14] LABS: Hematocrit (blood only) 27.2 % (42-52); Hemoglobin 9.5 g/dL (14.0-18.0)
--- NOTE | 2021-01-20 23:56 | Hospitalist Progress Note ---
Date of Service January 20, 2021 Assessment & Plan (1) GI bleed: Plan: Present on admission with bright red GI bleed Likely to be diverticular with the patients history of bleeds in the past CT abd reviewed showing diverticulosis without diverticulitis, also noted to be a 2.5 cm stone in the left ureter, as well as 2 other less than 5 mm stones. Hemoglobin on admission above 13.5 Status post 2 units PRBC and 1 unit of platelet on 01/17 Hemoglobin today 7 Bleeding scan showed acute active gastro intestinal bleeding of the mid transverse colon. Gastro on board Scope showed Diverticulosis in the entire examined colon with old blood but no evidence of active bleeding seen, likely resolved spontaneously. Case discussed again with GI that suggest if bleeding recurs then transfer to tertiary care center for IR embolization. Will transfuse 2 units PRBC today Continue monitor H&H Diet advance to Full liquid Clinically improves (2) Diverticulosis of intestine with bleeding: Plan: - hx of such few years ago where he required blood transfusion, per pt had outpatient colonoscopy at [facility] after that in Dec 2017 (3) Alberto's esophagus: Plan: - hx of such (4) BPH (benign prostatic hyperplasia): Plan: Kidney Stone cont flomax Noted CT findings of left sided 2.5 cm ureter stone causing moderate to severe hydroureteronephrosis Urology on board-plan for outpatient follow-up for management of the kidney stone Stable (5) HTN (hypertension): Plan: - Continue metoprolol 25 mg QAM , lisinopril 5 mg daily, hold baby aspirin (6) HLD (hyperlipidemia): Plan: - Cont rosuvastatin 40 mg daily (7) Diabetes mellitus type 2 with complications: Plan: Most recent hemoglobin A1c 6.7 Continue monitor blood sugar (8) Diabetic neuropathy: Plan: - Hx of such (9) Restless leg syndrome: Plan: - Cont primapaxel (10) Depression with anxiety: Plan: - cont sertraline DVT ppx: teds, scds CODE: Full Dispo: Will discharge once medically stable Admission and Anticipated Discharge Date Admission Date: January 19, 2021 Subjective Patient was seen and examined for follow-up of GI bleed Lying in bed with no acute distress Pt said that he feels much better today He said that his last bowel this morning that he did not notice any blood Hgb 7 today and he is getting 2 units PRBC Denies any chest pain, palpitation, dizziness and SOB Review of Systems Review of Systems: All systems reviewed & are unremarkable except as noted in Subjective Physical Exam Physical Exam: General- No acute distress Head- atraumatic Eyes- PERRL, EOMI, ENT- oropharynx clear Neck- supple, no JVD Lungs- clear to auscultation Heart- regular rhythm; no murmur Abdomen- normal bowel sounds, +cramping tenderness Extremities- no calf tenderness Neuro- alert, oriented x 3; PERRL, EOMI; no facial palsy; no dysarthria Skin- warm & dry Results & Data Results & Data ([facility]) Vital Signs (Past 12 Hours) Vital Signs Temp Pulse Pulse Resp BP BP Pulse Ox 01/20/21 23:00 36.7 C 85 18 110/48 L 93 01/20/21 19:00 37.0 C 76 18 129/86 99 01/20/21 17:55 61 01/20/21 17:11 36.6 C 70 18 125/62 96 01/20/21 17:00 36.8 C 84 18 121/60 98 01/20/21 16:11 36.9 C 76 18 127/55 L 96 01/20/21 15:11 36.5 C 66 18 133/61 93 01/20/21 14:41 36.5 C 64 18 151/68 H 97 01/20/21 14:26 36.5 C 57 L 18 131/53 L 95 01/20/21 13:59 36.5 C 61 16 147/67 H 95 01/20/21 13:36 36.4 C L 65 16 115/51 L 97 01/20/21 12:55 36.6 C 65 16 122/49 L 93 01/20/21 12:00 36.9 C 72 18 134/70 96 (1) GI bleed GI bleed type/associated pathology: diverticulitis Qualified Code(s): K57.93 - Diverticulitis of intestine, part unspecified, without perforation or abscess with bleeding
[2021-01-21 06:18] LABS: Hematocrit (blood only) 25.1 % (42-52); Hemoglobin 8.7 g/dL (14.0-18.0); Mean Corpuscular Hemoglobin 30.3 pg (25-34); Mean Corpuscular Hgb Conc 34.7 g/dL (32-36); Mean Corpuscular Volume 87.5 fL (80-100); Mean Platelet Volume 9.6 fL (7.4-10.4); Nucleated RBC # (auto) 0.04 K/uL (0-0); Nucleated RBC % (auto) 0.8 %; Platelet Count 125 K/uL (130-400); RDW Coefficient of Variation 16.2 % (11.5-14.5); RDW Standard Deviation 51.2 fL (36.4-46.3); Red Blood Count 2.87 M/uL (4.7-6.1); White Blood Count 4.63 K/uL (4.8-10.8)
[2021-01-21] MEDS: INSULIN ASPART 100 UNITS/ML 3 ML PEN SC SCH ×4 (08:04→20:40)
[2021-01-21] MEDS: PANTOprazole 40 MG in SYRINGE 0 ML IV SCH ×2 (08:04→21:21)
[2021-01-21 11:02] LABS: Hematocrit (blood only) 24.2 % (42-52); Hemoglobin 8.1 g/dL (14.0-18.0)
[2021-01-21] MEDS ORDERED: SODIUM CHLORIDE 0.9% 250 ML IV PRN ×2 (11:58→12:47)
--- NOTE | 2021-01-21 15:15 | Hospitalist Progress Note ---
Date of Service January 21, 2021 Assessment & Plan (1) GI bleed: Plan: Present on admission with bright red GI bleed Likely to be diverticular with the patients history of bleeds in the past CT abd reviewed showing diverticulosis without diverticulitis, also noted to be a 2.5 cm stone in the left ureter, as well as 2 other less than 5 mm stones. Hemoglobin on admission above 13.5, then Hemoglobin dropped to 7 Bleeding scan showed acute active gastro intestinal bleeding of the mid transverse colon. Gastro on board Flexible sigmoidoscopy showed Diverticulosis in the entire examined colon with old blood but no evidence of active bleeding seen, likely resolved spontaneously. Case discussed with GI that suggested if bleeding recurs then transfer to tertiary care center for IR embolization. Received a total of 6 units PRBC and 1 unit platelet during the admission course so far Today patient started to have recurrent episodes GI bleed associated with dizziness Hemoglobin 8.1 today Will transfuse another 1 unit PRBC Discussed Case with Dr. Vyas and IR Dr. Leonard from [facility] about to transfer pt to [place] for IR evaluation Accepting physician hospitalist Dr. Ghosh Waiting for bed available at [facility] to transfer Continue monitor H&H Will continue clear liquid diet for now Continue to hold aspirin Continue monitor closely (2) Diverticulosis of intestine with bleeding: Plan: - hx of such few years ago where he required blood transfusion, per pt had outpatient colonoscopy at [facility] after that in Dec 2017 (3) Alberto's esophagus: Plan: - hx of such (4) BPH (benign prostatic hyperplasia): Plan: Kidney Stone cont flomax Noted CT findings of left sided 2.5 cm ureter stone causing moderate to severe hydroureteronephrosis Urology on board-plan for outpatient follow-up for management of the kidney stone Stable (5) HTN (hypertension): Plan: - Continue metoprolol 25 mg QAM , lisinopril 5 mg daily, hold baby aspirin (6) HLD (hyperlipidemia): Plan: - Cont rosuvastatin 40 mg daily (7) Diabetes mellitus type 2 with complications: Plan: Most recent hemoglobin A1c 6.7 Continue monitor blood sugar (8) Diabetic neuropathy: Plan: - Hx of such (9) Restless leg syndrome: Plan: - Cont primapaxel (10) Depression with anxiety: Plan: - cont sertraline DVT ppx: teds, scds CODE: Full Dispo: Will transfer to [facility] for IR evaluation Admission and Anticipated Discharge Date Admission Date: January 19, 2021 Subjective Patient was seen and examined for follow-up of GI bleed Lying in bed with no acute distress This morning he started to have recurrent GI bleed with dark bloody stool associated with abdominal cramping Pt already had about 4 bloody bowel movement so far today He said that he feels dizzy and lightheadedness Repeat hemoglobin dropped from 9.5 to 8.1 this morning the Case discussed with Dr. Vyas and Interventional radiation Dr. Leonard from [facility] about to transfer pt to [place] for IR evaluation Pt accepted for transfer but there is no bed available at this time Dr. Vyas said the accepting physician will be Dr. GHOSH Denies any chest pain, palpitation, SOB, fever Review of Systems Review of Systems: All systems reviewed & are unremarkable except as noted in Subjective Physical Exam Physical Exam: General- No acute distress Head- atraumatic Eyes- PERRL, EOMI, ENT- oropharynx clear Neck- supple, no JVD Lungs- clear to auscultation Heart- regular rhythm; no murmur Abdomen- normal bowel sounds, +cramping tenderness Extremities- no calf tenderness Neuro- alert, oriented x 3; PERRL, EOMI; no facial palsy; no dysarthria Skin- warm & dry Results & Data Results & Data ([facility]) Vital Signs (Past 12 Hours) Vital Signs Temp Pulse Pulse Resp BP BP Pulse Ox 01/21/21 14:54 36.4 C L 103 H 20 120/60 96 01/21/21 13:54 36.8 C 90 18 117/58 L 95 01/21/21 13:24 36.5 C 96 H 18 125/58 L 97 01/21/21 13:09 36.4 C L 88 18 142/67 H 95 01/21/21 12:53 36.3 C L 92 H 18 120/64 97 01/21/21 12:30 36.3 C L 92 H 18 120/64 97 01/21/21 12:10 36.5 C 76 19 155/71 H 95 01/21/21 08:26 48 L 01/21/21 08:20 36.9 C 72 18 140/63 96 01/21/21 04:05 36.4 C L 56 L 16 122/51 L (1) GI bleed GI bleed type/associated pathology: diverticulitis Qualified Code(s): K57.93 - Diverticulitis of intestine, part unspecified, without perforation or abscess with bleeding
[2021-01-21 19:52] LABS: Hematocrit (blood only) 23.7 % (42-52); Hemoglobin 8.1 g/dL (14.0-18.0)
[2021-01-21] MEDS: INSULIN GLARGINE SOLOSTAR 100 UNITS/ML 3 ML PEN SQ SCH (20:41)
[2021-01-21] MEDS: LATANOPROST 0.005% OP SOLN 2.5 ML BTL OP SCH (20:42)
[2021-01-21] MEDS: PRAMIPEXOLE DIHYDROCHLO 0.25 MG TAB PO SCH (20:42)
[2021-01-21] MEDS: ACETAMINOPHEN 325 MG TAB PO PRN (21:29)
[2021-01-22 01:55] LABS: Hematocrit (blood only) 21.8 % (42-52); Hemoglobin 7.4 g/dL (14.0-18.0)
[2021-01-22] MEDS ORDERED: SODIUM CHLORIDE 0.9% 250 ML IV PRN (02:01)
[2021-01-22] MEDS: INSULIN ASPART 100 UNITS/ML 3 ML PEN SC SCH ×4 (08:20→20:23)
[2021-01-22] MEDS: PANTOprazole 40 MG in SYRINGE 0 ML IV SCH ×2 (08:20→20:29)
--- NOTE | 2021-01-22 08:54 | Gastroenterology Progress Note ---
Date of Service January 22, 2021 Assessment & Plan (1) GI bleed: Plan: This is a 76-year-old male admitted with gross rectal bleeding. Colonoscopy on 01/19 showed diverticulosis in entire colon w old blood. He continues to pass geovany stools w drop in blood ct. Transfer to [facility] for IR intervention had been requested. - Monitor blood ct and transfuse prn - Continue PPI - Awaiting [facility] transfer Admission and Anticipated Discharge Date Admission Date: January 19, 2021 Attg add: I intreviewed and examined pt, reviewed chart and labs. Pt passing geovany stools with dropping hg, although BP remains stable. Currently awaiting transfer to [facility], but will plan to re-scope here tomorrow if transfer is delayed. Subjective Pt still passing mahoghany stools this AM. [place] crampy across lower abd. He ate [place] diet this AM, felt a bit nauseous. [facility] transfer pending Review of Systems Review of Systems: All systems reviewed & are unremarkable except as noted in HPI & below Physical Exam Constitutional: WD/WN, vitals as above well groomed, cooperative and comfortable Eyes: PERRL, conjunctivae normal, anicteric sclerae ENMT: external ear and nose normal, oropharynx normal Respiratory: normal respiratory effort, lungs clear to auscultation Cardiovascular: RRR, no murmur, no edema Gastrointestinal (Abdomen): normal bowel sounds, soft, nontender, no hepatosplenomegaly Skin: no rashes, warm and dry no jaundice Psychiatric: A+Ox3, euthymic affect Lymphatic: no lymphedema Results & Data ([facility]) Vital Signs (Past 12 Hours) Vital Signs Temp Pulse Pulse Resp BP BP Pulse Ox 01/22/21 08:03 36.8 C 67 19 170/71 H 93 01/22/21 05:05 36.7 C 67 16 138/57 L 97 01/22/21 04:05 36.6 C 55 L 16 120/52 L 96 01/22/21 03:35 36.5 C 62 16 124/55 L 95 01/22/21 03:05 36.5 C 60 16 111/51 L 98 01/22/21 03:02 73 01/22/21 02:50 36.4 C L 62 16 111/55 L 95 01/22/21 02:30 36.5 C 84 16 124/54 L 97 01/22/21 01:16 36.6 C 64 16 113/58 L 98 01/21/21 23:10 36.7 C 62 18 102/50 L 93 (1) GI bleed GI bleed type/associated pathology: diverticulitis Qualified Code(s): K57.93 - Diverticulitis of intestine, part unspecified, without perforation or abscess with bleeding
[2021-01-22 09:05] LABS: Hemoglobin 8.1 g/dL (14.0-18.0); Mean Corpuscular Hemoglobin 31.5 pg (25-34); Mean Corpuscular Hgb Conc 35.2 g/dL (32-36); Mean Corpuscular Volume 89.5 fL (80-100); Mean Platelet Volume 9.3 fL (7.4-10.4); Nucleated RBC # (auto) 0.03 K/uL (0-0); Nucleated RBC % (auto) 0.6 %; Platelet Count 118 K/uL (130-400); RDW Coefficient of Variation 15.5 % (11.5-14.5); RDW Standard Deviation 48.5 fL (36.4-46.3); Red Blood Count 2.57 M/uL (4.7-6.1)
[2021-01-22 09:32] LABS: BUN Creatinine Ratio 8.4 (10-20); Calcium 7.7 mg/dl (8.5-10.1); Creatinine Clr Calc Pharmacy 86.7 ml/min; Est GFR (African American) 97.4 ml/min; Potassium 3.3 mmol/L (3.5-5.1)
[2021-01-22] MEDS ORDERED: POTASSIUM CHLORIDE CRTAB 20 MEQ TABCR PO STA (09:43)
[2021-01-22] MEDS: ACETAMINOPHEN 325 MG TAB PO PRN (15:27)
[2021-01-22 20:19] LABS: Hematocrit (blood only) 25.5 % (42-52); Hemoglobin 8.9 g/dL (14.0-18.0)
[2021-01-22] MEDS ORDERED: MoRPHine SULFATE 4 MG/ML 1 ML CARP\\VIAL IV PRN (20:26)
[2021-01-22] MEDS: INSULIN GLARGINE SOLOSTAR 100 UNITS/ML 3 ML PEN SQ SCH (20:29)
[2021-01-22] MEDS: PRAMIPEXOLE DIHYDROCHLO 0.25 MG TAB PO SCH (20:29)
[2021-01-22] MEDS: LATANOPROST 0.005% OP SOLN 2.5 ML BTL OP SCH (20:30)
[2021-01-22] MEDS: traMADol HCL 50 MG TABLET PO PRN (20:42)
--- NOTE | 2021-01-23 02:25 | Hospitalist Progress Note ---
Date of Service January 22, 2021 Assessment & Plan (1) GI bleed: Plan: Present on admission with bright red GI bleed Likely to be diverticular with the patients history of bleeds in the past CT abd reviewed showing diverticulosis without diverticulitis, also noted to be a 2.5 cm stone in the left ureter, as well as 2 other less than 5 mm stones. Hemoglobin on admission above 13.5, then Hemoglobin dropped to 7 Bleeding scan showed acute active gastro intestinal bleeding of the mid transverse colon. Gastro on board Flexible sigmoidoscopy showed Diverticulosis in the entire examined colon with old blood but no evidence of active bleeding seen, likely resolved spontaneously. Case discussed with GI that suggested if bleeding recurs then transfer to tertiary [facility] for IR embolization. Received a total of 9 units PRBC and 1 unit platelet during the admission course so far Today patient started to have recurrent episodes GI bleed associated with dizziness Hemoglobin 8.1 today Discussed Case with Dr. Vyas and IR Dr. Leonard from [facility] about to transfer pt to [place] for IR evaluation Accepting physician hospitalist Dr. Montoya Waiting for bed available at [facility] to transfer Continue monitor H&H In the meantime if hemoglobin continues to drop we will get a CT angiogram of the abdomen and pelvic If patient stay in the hospital, GI plan to scope him again in the morning We will make n.p.o. after midnight Continue to hold aspirin Continue monitor closely (2) Diverticulosis of intestine with bleeding: Plan: - hx of such few years ago where he required blood transfusion, per pt had outpatient colonoscopy at [facility] after that in Dec 2017 (3) Alberto's esophagus: Plan: - hx of such (4) BPH (benign prostatic hyperplasia): Plan: Kidney Stone cont flomax Noted CT findings of left sided 2.5 cm ureter stone causing moderate to severe hydroureteronephrosis Urology on board-plan for outpatient follow-up for management of the kidney stone Stable (5) HTN (hypertension): Plan: - Continue metoprolol 25 mg QAM , lisinopril 5 mg daily, hold baby aspirin (6) HLD (hyperlipidemia): Plan: - Cont rosuvastatin 40 mg daily (7) Diabetes mellitus type 2 with complications: Plan: Most recent hemoglobin A1c 6.7 Continue monitor blood sugar (8) Diabetic neuropathy: Plan: - Hx of such (9) Restless leg syndrome: Plan: - Cont primapaxel (10) Depression with anxiety: Plan: - cont sertraline DVT ppx: teds, scds CODE: Full Dispo: Waiting for bed to transfer to [facility] for IR evaluation Admission and Anticipated Discharge Date Admission Date: January 19, 2021 Subjective Patient was seen and examined for follow-up of GI bleed Lying in bed with no acute distress Patient said that he is feeling a lot better today He said that he is not having as much as bloody bowel movement compared to yesterday Arrangement made to transfer to [place] but waiting for bed Denies any chest pain, palpitation, dizziness, shortness of breath. Review of Systems Review of Systems: All systems reviewed & are unremarkable except as noted in Subjective Physical Exam Physical Exam: General- No acute distress Head- atraumatic Eyes- PERRL, EOMI, ENT- oropharynx clear Neck- supple, no JVD Lungs- clear to auscultation Heart- regular rhythm; no murmur Abdomen- normal bowel sounds, +cramping tenderness Extremities- no calf tenderness Neuro- alert, oriented x 3; PERRL, EOMI; no facial palsy; no dysarthria Skin- warm & dry Results & Data Results & Data ([facility]) Vital Signs (Past 12 Hours) Vital Signs Temp Pulse Pulse Pulse Resp BP Pulse Ox 01/23/21 01:01 52 L 01/22/21 22:48 36.8 C 54 L 17 105/61 93 01/22/21 19:20 36.4 C L 64 19 163/57 H 96 01/22/21 17:04 74 01/22/21 15:21 36.6 C 69 19 147/68 H 96 (1) GI bleed GI bleed type/associated pathology: diverticulitis Qualified Code(s): K57.93 - Diverticulitis of intestine, part unspecified, without perforation or abscess with bleeding
[2021-01-23 07:29] LABS: Hematocrit (blood only) 24.7 % (42-52); Hemoglobin 8.5 g/dL (14.0-18.0); Mean Corpuscular Hemoglobin 30.9 pg (25-34); Mean Corpuscular Hgb Conc 34.4 g/dL (32-36); Mean Corpuscular Volume 89.8 fL (80-100); Mean Platelet Volume 9.9 fL (7.4-10.4); Nucleated RBC # (auto) 0.03 K/uL (0-0); Nucleated RBC % (auto) 0.5 %; Platelet Count 146 K/uL (130-400); RDW Coefficient of Variation 16.1 % (11.5-14.5); RDW Standard Deviation 48.6 fL (36.4-46.3); Red Blood Count 2.75 M/uL (4.7-6.1); White Blood Count 4.58 K/uL (4.8-10.8)
[2021-01-23 08:11] LABS: Albumin Level 2.7 gm/dl (3.4-5.0); BUN Creatinine Ratio 6.1 (10-20); Bilirubin,Total 0.6 mg/dl (0.2-1); Calcium 8.3 mg/dl (8.5-10.1); Creatinine Clr Calc Pharmacy 84.8 ml/min; Est GFR (African American) 96.5 ml/min; Est GFR (Non-African American) 83.3 ml/min; Globulin 2.7 gm/dl (2.5-4.0); Potassium 4.1 mmol/L (3.5-5.1); Total Protein 5.4 gm/dl (6.4-8.2)
[2021-01-23] MEDS: INSULIN ASPART 100 UNITS/ML 3 ML PEN SC SCH ×4 (08:34→20:20)
[2021-01-23] MEDS: PANTOprazole 40 MG in SYRINGE 0 ML IV SCH ×2 (08:42→20:20)
--- NOTE | 2021-01-23 08:47 | Gastroenterology Progress Note ---
Date of Service January 23, 2021 Assessment & Plan (1) GI bleed: Plan: This is a 76-year-old male admitted with gross rectal bleeding. Colonoscopy on 01/19 showed diverticulosis in entire colon w old blood. Suspect diverticular bleed. He had stopped bleeding and no BMs since yesterday morning. Blood ct and BP stable. - Defer repeat endoscopy at this time - Monitor blood ct and transfuse prn - Continue PPI - Continue to monitor ; if stopped bleeding completely may cancel transfer to [facility] Admission and Anticipated Discharge Date Admission Date: January 19, 2021 Supervising Physician Co-Signing Physician Notes Attg add: I interviewed and examined pt, reviewed chart and labs. Pt is without evidence of overt bleeding, will contnue to monitor. Plan as above. Subjective Pt reports no BM since yesterday morning. Blood ct and BP stable. Denies n/v, having mild LLQ abd discomfort. Review of Systems Review of Systems: All systems reviewed & are unremarkable except as noted in HPI & below Physical Exam Constitutional: WD/WN, vitals as above well groomed, cooperative and comfortable Eyes: PERRL, conjunctivae normal, anicteric sclerae ENMT: external ear and nose normal, oropharynx normal Respiratory: normal respiratory effort, lungs clear to auscultation Cardiovascular: RRR, no murmur, no edema Gastrointestinal (Abdomen): normal bowel sounds, soft, nontender, no hepatosplenomegaly Skin: no rashes, warm and dry no jaundice Psychiatric: A+Ox3, euthymic affect Lymphatic: no lymphedema Results & Data ([facility]) Vital Signs (Past 12 Hours) Vital Signs Temp Pulse Pulse Resp BP Pulse Ox 01/23/21 06:58 36.6 C 59 L 19 136/56 L 94 01/23/21 03:32 36.6 C 60 19 147/58 H 97 01/23/21 01:01 52 L 01/22/21 22:48 36.8 C 54 L 17 105/61 93 (1) GI bleed GI bleed type/associated pathology: diverticulitis Qualified Code(s): K57.93 - Diverticulitis of intestine, part unspecified, without perforation or abscess with bleeding
--- NOTE | 2021-01-23 18:07 | Hospitalist Progress Note ---
Date of Service January 23, 2021 Assessment & Plan (1) GI bleed: Plan: Present on admission with bright red GI bleed Likely to be diverticular with the patients history of bleeds in the past CT abd reviewed showing diverticulosis without diverticulitis, also noted to be a 2.5 cm stone in the left ureter, as well as 2 other less than 5 mm stones. Hemoglobin on admission above 13.5, then Hemoglobin dropped to 7 Bleeding scan showed acute active gastro intestinal bleeding of the mid transverse colon. Gastro on board Flexible sigmoidoscopy showed Diverticulosis in the entire examined colon with old blood but no evidence of active bleeding seen, likely resolved spontaneously. Case discussed with GI that suggested if bleeding recurs then transfer to tertiary [facility] for IR embolization. Received a total of 9 units PRBC and 1 unit platelet during the admission course so far Today patient started to have recurrent episodes GI bleed associated with dizziness Hemoglobin 8.5 today Discussed Case with Dr. Vyas and IR Dr. [place] [facility] for IR evaluation Accepting physician hospitalist Dr. Montoya Waiting for bed available at [facility] [place] Continue monitor H&H In the meantime if hemoglobin continues to drop we will get a CT angiogram of the abdomen and pelvic If patient stay in the hospital, GI plan to scope him again in the morning if h/h drops We will make n.p.o. after midnight Continue to hold aspirin Continue monitor closely (2) Diverticulosis of intestine with bleeding: Plan: - hx of such few years ago where he required blood transfusion, per pt had outpatient colonoscopy at [facility] after that in Dec 2017 (3) Alberto's esophagus: Plan: - hx of such (4) BPH (benign prostatic hyperplasia): Plan: Kidney Stone cont flomax Noted CT findings of left sided 2.5 cm ureter stone causing moderate to severe hydroureteronephrosis Urology on board-plan for outpatient follow-up for management of the kidney stone Stable (5) HTN (hypertension): Plan: Resume lisinopril 5 mg daily (6) HLD (hyperlipidemia): Plan: - Cont rosuvastatin 40 mg daily (7) Diabetes mellitus type 2 with complications: Plan: Most recent hemoglobin A1c 6.7 Continue monitor blood sugar (8) Diabetic neuropathy: Plan: - Hx of such (9) Restless leg syndrome: Plan: - Cont primapaxel (10) Depression with anxiety: Plan: - cont sertraline DVT ppx: tedgisela, scds CODE: Full Dispo: Waiting for bed to transfer to [facility] for IR evaluation Admission and Anticipated Discharge Date Admission Date: January 19, 2021 Subjective Patient was seen and examined for follow-up of GI bleed Lying in bed with no acute distress Patient said that he felt much better today He has not had any bloody bowel movement today Denies any chest pain, palpitation, dizziness, shortness of breath. Review of Systems Review of Systems: All systems reviewed & are unremarkable except as noted in Subjective Physical Exam Physical Exam: General- No acute distress Head- atraumatic Eyes- PERRL, EOMI, ENT- oropharynx clear Neck- supple, no JVD Lungs- clear to auscultation Heart- regular rhythm; no murmur Abdomen- normal bowel sounds, +cramping tenderness Extremities- no calf tenderness Neuro- alert, oriented x 3; PERRL, EOMI; no facial palsy; no dysarthria Skin- warm & dry Results & Data Results & Data ([facility]) Vital Signs (Past 12 Hours) Vital Signs Temp Pulse Pulse Resp BP Pulse Ox 01/23/21 16:00 61 01/23/21 14:44 36.3 C L 60 16 153/69 H 99 01/23/21 10:52 36.5 C 62 19 166/76 H 98 01/23/21 08:00 52 L 01/23/21 06:58 36.6 C 59 L 19 136/56 L 94 (1) GI bleed GI bleed type/associated pathology: diverticulitis Qualified Code(s): K57.93 - Diverticulitis of intestine, part unspecified, without perforation or abscess with bleeding
[2021-01-23] MEDS: PRAMIPEXOLE DIHYDROCHLO 0.25 MG TAB PO SCH (20:20)
[2021-01-23] MEDS: INSULIN GLARGINE SOLOSTAR 100 UNITS/ML 3 ML PEN SQ SCH (20:20)
[2021-01-23] MEDS: LATANOPROST 0.005% OP SOLN 2.5 ML BTL OP SCH (20:20)
[2021-01-23] MEDS: traMADol HCL 50 MG TABLET PO PRN (20:33)
[2021-01-24] MEDS ORDERED: Nursing to Pharmacy Communication SCH ×2 (00:30→10:45)
[2021-01-24] MEDS ORDERED: INSULIN ASPART 100 UNITS/ML 3 ML PEN SC SCH ×2 (06:00→11:30)
[2021-01-24 06:06] LABS: Hematocrit (blood only) 25.6 % (42-52); Hemoglobin 8.5 g/dL (14.0-18.0); Mean Corpuscular Hemoglobin 30.9 pg (25-34); Mean Corpuscular Hgb Conc 33.2 g/dL (32-36); Mean Corpuscular Volume 93.1 fL (80-100); Mean Platelet Volume 9.6 fL (7.4-10.4); Nucleated RBC # (auto) 0.02 K/uL (0-0); Nucleated RBC % (auto) 0.4 %; Platelet Count 200 K/uL (130-400); RDW Coefficient of Variation 16.3 % (11.5-14.5); RDW Standard Deviation 50.7 fL (36.4-46.3); Red Blood Count 2.75 M/uL (4.7-6.1); White Blood Count 3.77 K/uL (4.8-10.8)
[2021-01-24 06:38] LABS: BUN Creatinine Ratio 7.1 (10-20); Calcium 8.2 mg/dl (8.5-10.1); Creatinine Clr Calc Pharmacy 91.9 ml/min; Est GFR (African American) 99.8 ml/min; Est GFR (Non-African American) 86.1 ml/min; Potassium 3.5 mmol/L (3.5-5.1)
[2021-01-24] MEDS: PANTOprazole 40 MG in SYRINGE 0 ML IV SCH (08:03)
[2021-01-24] MEDS ORDERED: lisinopril 5 MG TAB PO SCH (09:00)
--- NOTE | 2021-01-24 09:37 | Gastroenterology Progress Note ---
Date of Service January 24, 2021 Assessment & Plan (1) GI bleed: Plan: This is a 76-year-old male admitted with gross rectal bleeding. Colonoscopy on 01/19 showed diverticulosis in entire colon w old blood. Suspect diverticular bleed. He had stopped bleeding x 48 hrs now w stable blood ct and BP. - Defer repeat endoscopy at this time - Monitor blood ct and transfuse prn - Continue PPI - Advanced to diabetic diet - May cancel [place] request [place] [facility] - GI to sign off; pls recall prn Admission and Anticipated Discharge Date Admission Date: January 19, 2021 Supervising Physician Co-Signing Physician Notes Attg add: I interviewed and examined pt, reviewed chart and labs. Pt without any further bleeding, hgb stable. Plan as above. Subjective Pt had BM yesterday morning w/o rectal bleeding. He denies abd pain, n/v. Feels hungry. Noted BP and blood ct stable. Review of Systems Review of Systems: All systems reviewed & are unremarkable except as noted in HPI & below Physical Exam Constitutional: WD/WN, vitals as above well groomed, cooperative and comfortable Eyes: PERRL, conjunctivae normal, anicteric sclerae ENMT: external ear and nose normal, oropharynx normal Respiratory: normal respiratory effort, lungs clear to auscultation Cardiovascular: RRR, no murmur, no edema Gastrointestinal (Abdomen): normal bowel sounds, soft, nontender, no hepatosplenomegaly Skin: no rashes, warm and dry no jaundice Psychiatric: A+Ox3, euthymic affect Lymphatic: no lymphedema Results & Data ([facility]) Vital Signs (Past 12 Hours) Vital Signs Temp Pulse Pulse Resp BP Pulse Ox 01/24/21 08:00 56 L 01/24/21 07:25 36.3 C L 63 18 145/68 H 96 01/24/21 03:13 36.5 C 69 18 141/57 H 94 01/24/21 01:10 57 L 01/24/21 01:09 34 L 01/23/21 23:01 36.5 C 57 L 18 171/52 H 96 01/23/21 22:55 54 L (1) GI bleed GI bleed type/associated pathology: diverticulitis Qualified Code(s): K57.93 - Diverticulitis of intestine, part unspecified, without perforation or abscess with bleeding
--- NOTE | 2021-01-24 11:01 | Hospitalist Progress Note ---
Date of Service January 24, 2021 Assessment & Plan (1) GI bleed: Plan: Present on admission with bright red GI bleed Likely to be diverticular with the patients history of bleeds in the past CT abd reviewed showing diverticulosis without diverticulitis, also noted to be a 2.5 cm stone in the left ureter, as well as 2 other less than 5 mm stones. Hemoglobin on admission above 13.5, then Hemoglobin dropped to 7 Bleeding scan showed acute active gastro intestinal bleeding of the mid transverse colon. GI consulted and following Flexible sigmoidoscopy showed Diverticulosis in the entire examined colon with old blood but no evidence of active bleeding seen, likely resolved spontaneously. Case discussed with GI that suggested if bleeding recurs then transfer to tertiary [place] for IR embolization. Received a total of 9 units PRBC and 1 unit platelet during the admission course so far patient started to have recurrent episodes GI bleed associated with dizziness Discussed Case with Dr. Vyas and IR Dr. Leonard from [facility] about to transfer pt to [place] for IR evaluation Accepting physician hospitalist Dr. Montoya Waiting for bed available at [facility] to transfer Continue monitor H&H In the meantime if hemoglobin continues to drop we will get a CT angiogram of the abdomen and pelvic If patient stay in the hospital, GI plan to scope him again in the morning if h/h drops We will make n.p.o. after midnight Continue to hold aspirin Hemoglobin 8.5 today- stable from yesterday Having normal BMs Per GI, okay to cancel transfer and discharge home (2) Diverticulosis of intestine with bleeding: Plan: - hx of such few years ago where he required blood transfusion, per pt had outpatient colonoscopy at [facility] after that in Dec 2017 (3) Alberto's esophagus: Plan: - hx of such (4) BPH (benign prostatic hyperplasia): Plan: Kidney Stone cont flomax Noted CT findings of left sided 2.5 cm ureter stone causing moderate to severe hydroureteronephrosis Urology consulted -plan for outpatient follow-up for management of the kidney stone Stable (5) HTN (hypertension): Plan: Resumed lisinopril 5 mg daily (6) HLD (hyperlipidemia): Plan: - Cont rosuvastatin 40 mg daily (7) Diabetes mellitus type 2 with complications: Plan: Most recent hemoglobin A1c 6.7 Continue monitor blood sugar (8) Diabetic neuropathy: Plan: - Hx of such (9) Restless leg syndrome: Plan: - Cont primapaxel (10) Depression with anxiety: Plan: - cont sertraline DVT ppx: teds, scds CODE: Full Dispo: Initially planned to transfer to [facility] for IR evaluation , now plan to DC home as bleeding has resolved Admission and Anticipated Discharge Date Admission Date: January 19, 2021 Subjective Pt seen in follow-up of GI bleed had several BMs, normal, without any blood He denies abd pain, n/v. BP normal and Hgb stable at 8.5 Discussed with latia LARSON to discharge home Review of Systems Review of Systems: All systems reviewed & are unremarkable except as noted in Subjective Physical Exam Physical Exam: General- WD/WN M, No acute distress Head- atraumatic Eyes- PERRL, EOMI, ENT- oropharynx clear Neck- supple, no JVD Lungs- clear to auscultation Heart- regular rhythm; no murmur Abdomen- normal bowel sounds, soft, nontender to palpation Extremities- no calf tenderness Neuro- alert, oriented x 3; PERRL, EOMI; no facial palsy; no dysarthria, moves extremities Skin- warm & dry Results & Data Results & Data ([facility]) Vital Signs (Past 12 Hours) Vital Signs Temp Pulse Pulse Resp BP Pulse Ox 01/24/21 08:00 56 L 01/24/21 07:25 36.3 C L 63 18 145/68 H 96 01/24/21 03:13 36.5 C 69 18 141/57 H 94 01/24/21 01:10 57 L 01/24/21 01:09 34 L 01/23/21 23:01 36.5 C 57 L 18 171/52 H 96 Laboratory Results 01/24/21 01/24/21 01/24/21 Range/Units 05:44 05:40 05:40 WBC 3.77 L (4.8-10.8) K/uL RBC 2.75 L (4.7-6.1) M/uL Hgb 8.5 L (14.0-18.0) g/dL Hct 25.6 L (42-52) % MCV 93.1 (80-100) fL MCH 30.9 (25-34) pg MCHC 33.2 (32-36) g/dL RDW Std Deviation 50.7 H (36.4-46.3) fL RDW Coeff of Lachelle 16.3 H (11.5-14.5) % Plt Count 200 (130-400) K/uL MPV 9.6 (7.4-10.4) fL Absolute Nucleated RBC 0.02 H (0-0) K/uL Nucleated RBC % (auto) 0.4 % Sodium 138 (136-145) mmol/L Potassium 3.5 (3.5-5.1) mmol/L Chloride 111 H (98-107) mmol/L Carbon Dioxide 25 (21-32) mmol/L Anion Gap 2.0 L (3-11) BUN 6 L (7-18) mg/dl Creatinine 0.83 (0.6-1.4) mg/dl Est Cr Clr Drug Dosing 91.9 ml/min Est GFR ( Amer) 99.8 ml/min Est GFR (Non-Af Amer) 86.1 ml/min BUN/Creatinine Ratio 7.1 L (10-20) Glucose 113 H (70-99) mg/dl POC Glucose 111 H (70-99) mg/dl Calcium 8.2 L (8.5-10.1) mg/dl 01/23/21 01/23/21 01/23/21 Range/Units 20:11 16:05 11:16 WBC (4.8-10.8) K/uL RBC (4.7-6.1) M/uL Hgb (14.0-18.0) g/dL Hct (42-52) % MCV (80-100) fL MCH (25-34) pg MCHC (32-36) g/dL RDW Std Deviation (36.4-46.3) fL RDW Coeff of Lachelle (11.5-14.5) % Plt Count (130-400) K/uL MPV (7.4-10.4) fL Absolute Nucleated RBC (0-0) K/uL Nucleated RBC % (auto) % Sodium (136-145) mmol/L Potassium (3.5-5.1) mmol/L Chloride (98-107) mmol/L Carbon Dioxide (21-32) mmol/L Anion Gap (3-11) BUN (7-18) mg/dl Creatinine (0.6-1.4) mg/dl Est Cr Clr Drug Dosing ml/min Est GFR ( Amer) ml/min Est GFR (Non-Af Amer) ml/min BUN/Creatinine Ratio (10-20) Glucose (70-99) mg/dl POC Glucose 187 H 109 H 204 H (70-99) mg/dl Calcium (8.5-10.1) mg/dl Medications Administered Current Inpatient Medications Acetaminophen (Acetaminophen 325 Mg Tab) 650 mg PO Q4H PRN PRN Reason: Moderate Pain Stop: 02/16/21 21:18 Last Admin: 01/22/21 15:27 Dose: 650 mg Documented by: Dextrose (Dextrose 50% 50 Ml Syringe) 25 - 50 ml IV UD PRN; Protocol PRN Reason: Hypoglycemia Protocol Stop: 02/16/21 21:18 Glucagon (Glucagon For Inj 1 Mg Vial) 1 mg SQ UD PRN; Protocol PRN Reason: Hypoglycemia Protocol Stop: 02/16/21 21:18 Glucose (Glucose 10 Tabs/Tube) 4 - 8 tabs PO UD PRN; Protocol PRN Reason: Hypoglycemia Protocol Stop: 02/16/21 21:18 Glucose (Glucose 40% Gel 15 Gm Tube) 15 - 30 gm PO UD PRN; Protocol PRN Reason: Hypoglycemia Protocol Stop: 02/16/21 21:18 Heparin Sodium (Beef Lung) (Heparin 10 Unit/Ml 5 Ml Flush) 5 ml FLUSH PRN PRN PRN Reason: Flush Stop: 02/20/21 09:30 Last Admin: 01/21/21 15:45 Dose: 15 ml Documented by: Pantoprazole Sodium 40 mg/ (Syringe) 10 mls @ 5 mls/min IV BID EVA Stop: 02/16/21 21:18 Last Admin: 01/24/21 08:03 Dose: 5 mls/min Documented by: Insulin Aspart (Insulin Aspart 100 Units/Ml 3 Ml Pen) 0 units SC ACHS EVA Stop: 02/23/21 05:59 Insulin Glargine (Insulin Glargine Solostar 100 Units/Ml 3 Ml Pen) 7 units SQ HS EVA Stop: 02/16/21 20:59 Last Admin: 01/23/21 20:20 Dose: 7 units Documented by: Latanoprost (Latanoprost 0.005% Op Soln 2.5 Ml Btl) 1 drops OP HS EVA Stop: 02/16/21 21:18 Last Admin: 01/23/21 20:20 Dose: 1 drops Documented by: Lisinopril (Lisinopril 5 Mg Tab) 5 mg PO QAM [facility] Stop: 02/23/21 08:59 Last Admin: 01/24/21 08:04 Dose: 5 mg Documented by: Miscellaneous (Carbohydrates For Hypoglycemia ) 15 - 30 gm PO UD PRN PRN Reason: Hypoglycemia Protocol Stop: 02/16/21 21:18 Morphine Sulfate (Morphine Sulfate 4 Mg/Ml 1 Ml Carp\Vial) 4 mg IV Q4H PRN PRN Reason: Pain Stop: 02/05/21 20:25 Last Admin: 01/22/21 21:54 Dose: 4 mg Documented by: Ondansetron HCl (Ondansetron Inj 2 Mg/Ml 2 Ml Vial) 4 mg IV Q4H PRN PRN Reason: Nausea And Vomiting Stop: 02/16/21 21:18 Last Admin: 01/18/21 00:38 Dose: 4 mg Documented by: Pramipexole Dihydrochloride (Pramipexole Dihydrochlo 0.25 Mg Tab) 0.25 mg PO HS [facility] Stop: 02/16/21 21:18 Last Admin: 01/23/21 20:20 Dose: 0.25 mg Documented by: Tramadol HCl (Tramadol Hcl 50 Mg Tablet) 25 - 50 mg PO Q4H PRN PRN Reason: Pain Stop: 02/21/21 20:25 Last Admin: 01/23/21 20:33 Dose: 50 mg Documented by: (1) GI bleed GI bleed type/associated pathology: diverticulitis Qualified Code(s): K57.93 - Diverticulitis of intestine, part unspecified, without perforation or abscess with bleeding
[2021-01-24] MEDS ORDERED: POTASSIUM CHLORIDE CRTAB 20 MEQ TABCR PO STA (13:58)
--- NOTE | 2021-01-24 14:14 | Discharge Summary ---
Date of Service January 24, 2021 Admission HPI Per Admitting Provider This is a 76-year-old male with PMHx of diverticulitis, GI bleed, Alberto's esophagus, DM type II, HTN, HLD, BPH, diabetic neuropathy, restless leg syndrome, depression with anxiety who presents with acute onset of GI bleeding. He reports he woke this morning and felt that he had a to have a bowel movement, and realized that it was full of grossly dark/bright red blood. Throughout the day he has had 6-7 episodes of this. He reports feeling slightly lightheaded and dizzy prior to coming to the ER however after receiving 500 cc NSS he feels improved now. Denies any changes in his diet. He denies ever having abdominal pain, no nausea or vomiting. He reports no urinary complaints, urine has been clear yellow and without hematuria. No fevers, chills or sweats. He lives at home with his . Patient reports taking all his normally scheduled morning medications today. Last time he ate was breakfast today. Admission Exam Per Admitting Provider General: awake, alert, no apparent distress Head: Normocephalic, atraumatic ENT: PERRL, EOMI, no pharyngeal exudate, mucous membranes moist Chest: Clear to auscultation, on room air, no adventitious breath sounds Cardiac: Regular rate and rhythm, no murmur, no JVD, normal peripheral pulses, good capillary refill Abdominal: NABS x 4 quadrants, soft, nondistended, nontender to palpation, no rebound or guarding Extremities: Normal inspection, no peripheral edema or erythema, calfs nontender to palpation Psych: Normal mood and affect Neuro: AAO x 3, strength intact bilaterally and rated 5/5, no motor deficits, speech is clear, no peripheral sensory deficits Principal Diagnosis GI bleeding (likely diverticular bleed) Acute blood loss anemia Discharge Exam General- WD/WN M, No acute distress Head- atraumatic Eyes- PERRL, EOMI, ENT- oropharynx clear Neck- supple, no JVD Lungs- clear to auscultation Heart- regular rhythm; no murmur Abdomen- normal bowel sounds, soft, nontender to palpation Extremities- no calf tenderness Neuro- alert, oriented x 3; PERRL, EOMI; no facial palsy; no dysarthria, moves extremities Skin- warm & dry Discharge Data Allergies Allergy/AdvReac Type Severity Reaction Status Date / Time No Known Allergies Allergy Unverified 01/17/21 15:26 Consultations 01/17/21 15:56 ED Decision to Admit Stat 01/17/21 16:00 Consult Gastroenterology Routine 01/17/21 16:47 Consult Urology Routine Procedures Performed Operation Date: 01/19/21 13:25 Actual Procedures p Flexible Sigmoidoscopy(Not Applicable) - Zandra Steve MD Operation Date: 01/19/21 17:00 <No data on this case meets the specified criteria> Operation Date: 01/23/21 16:00 <No data on this case meets the specified criteria> Operation Date: 01/24/21 16:30 <No data on this case meets the specified criteria> Ordered Studies 01/17/21 14:22 CT abd pelvis IV con only Stat Hospital Course (1) GI bleed: Present on admission with bright red GI bleed Likely to be diverticular with the patients history of bleeds in the past CT abd reviewed showing diverticulosis without diverticulitis, also noted to be a 2.5 cm stone in the left ureter, as well as 2 other less than 5 mm stones. Hemoglobin on admission above 13.5, then Hemoglobin dropped to 7 Bleeding scan showed acute active gastro intestinal bleeding of the mid transverse colon. GI consulted and following Flexible sigmoidoscopy showed Diverticulosis in the entire examined colon with old blood but no evidence of active bleeding seen, likely resolved spontaneously. Case discussed with GI that suggested if bleeding recurs then transfer to tertiary [facility] for IR embolization. Received a total of 9 units PRBC and 1 unit platelet during the admission course so far patient started to have recurrent episodes GI bleed associated with dizziness Discussed Case with Dr. Vyas and IR Dr. Leonard from [facility] [place] transfer pt to [place] for IR evaluation Accepting physician hospitalist Dr. Montoya Waiting for bed available at [facility] to transfer Continue monitor H&H In the meantime if hemoglobin continues to drop we will get a CT angiogram of the abdomen and pelvic If patient stay in the hospital, GI plan to scope him again in the morning if h/h drops We will make n.p.o. after midnight Continue to hold aspirin Hemoglobin 8.5 today- stable from yesterday Having normal BMs Per GI, okay to cancel transfer and discharge home (2) Diverticulosis of intestine with bleeding: - hx of such few years ago where he required blood transfusion, per pt had outpatient colonoscopy at [facility] after that in Dec 2017 (3) Alberto's esophagus: - hx of such (4) BPH (benign prostatic hyperplasia): Kidney Stone cont flomax Noted CT findings of left sided 2.5 cm ureter stone causing moderate to severe hydroureteronephrosis Urology consulted -plan for outpatient follow-up for management of the kidney stone Stable (5) HTN (hypertension): Resumed lisinopril 5 mg daily (6) HLD (hyperlipidemia): - Cont rosuvastatin 40 mg daily (7) Diabetes mellitus type 2 with complications: Most recent hemoglobin A1c 6.7 Continue monitor blood sugar (8) Diabetic neuropathy: - Hx of such (9) Restless leg syndrome: - Cont primapaxel (10) Depression with anxiety: - cont sertraline DVT ppx: teds, scds CODE: Full Dispo: Initially planned to transfer to [facility] for IR evaluation , now plan to DC home as bleeding has resolved Total Time Total Time Spent Total Time Spent (In Minutes): 40 Discharge Plan Discharge Items Patient Disposition: Home - Self-Care Reason For Visit: GI BLEED Discharge Diagnosis: GI bleeding Condition on Discharge: Fair Activity: Resume your previous activity Non-emergency contact: Primary Care Provider, Proced Tech and Urologist Call non-emergency contact if: you have any medication questions and your symptoms worsen Follow-up/Referrals: Sakshi Barros DO [Primary Care Provider] - (Date & Time 01/31/2021 11:10 AM Provider Sakshi Barros DO Department Family Medicine [facility] ) Hayder Vargas MD [Physician] - (Date & Time 02/01/2021 11:00 AM Provider Hayder Vargas MD Department Gastroenterology, Health system ) Diet: Low Fiber, Low Fat and Nothing by Mouth Addtl Attending Provider Instructions: Follow-up with primary care doctor, the appointment is scheduled for you for January 31. Follow-up with gastroenterology, the appointment is scheduled for you for February 01. Recommend low fiber, low-fat diet for now. 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 Follow up with Urology for management of the kidney stone. Pending Studies at Discharge: No Stand-Alone Forms: My [facility], Smoking Cessation Medications and DC Order Prescriptions: Continued pramipexole 0.25 mg Tablet 0.25 mg PO HS RF: 0 tamsulosin 0.4 mg Capsule 0.4 mg PO QPM RF: 0 sertraline 50 mg Tablet 50 mg PO HS RF: 0 magnesium oxide [MgO] 400 mg (241.3 mg magnesium) Tablet 400 mg PO QAM RF: 0 metformin 1,000 mg Tablet 1,000 mg PO BIDM RF: 0 gabapentin 300 mg Capsule 600 mg PO TID RF: 0 metoprolol tartrate 25 mg Tablet 25 mg PO DAILY RF: 0 pantoprazole [Protonix] 40 mg Tablet,Delayed Release (Dr/Ec) 40 mg PO BID RF: 0 omega 1-mub-yhu-fish oil [Fish Oil] 1,000 mg (120 mg-180 mg) Capsule 1,000 mg PO BID RF: 0 Multi-Day Plus Minerals 18 mg iron-400 mcg-25 mcg Tablet 1 tab PO QAM RF: 0 insulin glargine 100 unit/mL Solution 15 unit SUBCUT HS RF: 0 lisinopril 5 mg Tablet 5 mg PO QAM RF: 0 latanoprost 0.005 % Drops 1 drp OPHTHALMIC (EYE) HS RF: 0 aspirin 81 mg Tablet,Delayed Release (Dr/Ec) 81 mg PO QAM RF: 0 rosuvastatin 40 mg tablet 4 mg PO HS RF: 0 Discharge Orders: Discharge Order (Routine); Ordered 01/24/21 Ordered By: Lemuel Vega/Other Patient Handouts: A1C, Managing Type 2 Diabetes, Special Foot Care for Diabetes Admission Data Admit Date/Time: 01/19/21 23:45 Attending Provider: Lemuel Grant Admit Provider: Eleuterio Valadez Primary Care Provider: Sakshi Barros Other Providers: Eleuterio Valadez ; Hayder Vargas ; Michael Meadows ; Shelly Bojorquez
== END 2021-01-24 16:19 | disposition home or self-care (01) | DRG 378 ==
LOC: ED 13:46 → 2S 13:46 → SUATTDRO 18:03 → 2S 20:52 → SUATTDRO 01-19 23:45

== ENCOUNTER 2021-10-06 06:19 | Inpatient (IN) ==
[2021-10-06] MEDS ORDERED: SODIUM CHLORIDE 0.9% 1000ML 1,000 ML IV STA (06:28)
[2021-10-06] MEDS ORDERED: MoRPHine SULFATE 4 MG/ML 1 ML CARP\\VIAL IV STA ×2 (06:28→08:49)
[2021-10-06] MEDS ORDERED: ONDANSETRON INJ 2 MG/ML 2 ML VIAL IV STA ×2 (06:28→08:49)
--- NOTE | 2021-10-06 06:28 | Emergency Department Note ---
Impression & Plan Cholecystitis, acute, Nausea ED Provider Note Provider: Kolby Kim MD DATE OF SERVICE: 10/06/2021 CHIEF COMPLAINT: Abdominal pain HISTORY OF PRESENT ILLNESS: Patient is a 76-year-old gentleman history of BPH, kidney stones, hypertension, type 2 diabetes presenting here today reporting on set of abdominal pain around midnight this past night with associated nausea and vomiting. Patient states he was well yesterday evening. Since patient states he is unable to sleep last night due to the pain and recurrent episodes of nausea and vomiting. Nonbloody nature. Patient denies any diarrhea. Reports a history also diverticulitis states this feels different is not any blood in his stool. Patient states his last bowel movement was a small amount overnight. Denies any trauma. Denies any associated rash. Some chronic lower back pain but he states this is unchanged. Denies any chest pain or shortness of breath. Patient states he is a little bit of sinus drainage now he states that started after he was vomiting. No sick contacts reported. Denies urinary or complaint. REVIEW OF SYSTEMS: A total of 10 review of systems was obtained and negative except as stated above in the HPI. PAST MEDICAL HISTORY: As noted above MEDICATIONS: Reviewed home medication list SOCIAL HISTORY: Lives at home with PHYSICAL EXAM: GENERAL: alert and oriented seated on the edge of stretcher appears mildly uncomfortable with emesis bag Head: normocephalic and atraumatic EYES: No injection, discharge or icterus. NECK: Trachea midline. LUNGS: Airway patent. No retractions. Breath sounds clear with good air entry bilaterally. HEART: Regular rate and rhythm. No chest wall tenderness ABDOMEN: Soft with minimal mid abdominal tenderness. No guarding or peritonitis. SKIN: Acyanotic, warm, dry, without rashes EXTREMITIES: Without swelling, tenderness or deformity NEUROLOGICAL: No focal deficits. No aphasia. No facial droop or slurred speech. Ambulatory. EK bpm normal sinus rhythm. No PVCs or PACs noted. No acute ST segment elevation or depression with a QTC of 417. CONTINUOUS CARDIAC MONITORING: was ordered and showed a heart rate of 60s-80s bpm in normal sinus rhythm PDMP was checked without noted issue. Patient's laboratory studies and imaging reviewed. Differential includes Appendicitis, testicular torsion, infections, diverticulitis, UTI, obstruction, mesenteric ischemia, aortic pathology, inflammatory bowel disease, renal colic, PUD, pancreatitis, biliary pathology, hernia, volvulus, constipation, as well as other pathologies. IMPRESSION/MEDICAL DECISION MAKING: Onset overnight of mid abdominal discomfort associated nausea and vomiting nonbloody in nature. Given some IV fluid as well as symptomatic treatment with nausea and pain medication. Labs were completed including EKG and lactate. CT of the abdomen pelvis with complete look for intra-abdominal or pelvic pathology precipitating his symptoms. No sick contacts reported as well as no trauma reported. There is no overlying concerning rash. Patient the pain seems less likely to be cardiac or pulmonary in nature. Little bit of sinus complaint but after vomiting I doubt this represents URI however a COVID test was completed. Softer stool sample provided and sent for stool PCR. No anemia. White blood cell count of 10.59 within normal limits. Lactate mildly elevated at 2.7. Likely contributing to a small anion gap that no significant electrolyte abnormality otherwise noted. No evidence of acute hepatitis or pancreatitis based on labs. Negative COVID test. CT report the abdomen pelvis reports concerning evidence for cholecystitis. Minimal improvement with morphine given some fentanyl for pain. He did have improvement with this. Discussed with general surgery team and Zosyn ordered. We will have the hospitalist admit with surgical consultation. Stool studies returned positive for C. difficile as well as EPEC although not really have significant diarrhea. Hospitalist team informed. DIAGNOSIS: Acute cholecystitis, nausea DISPOSITION: Hospitalist will evaluate Patient was agreeable with this plan. Past Med/Surg History Medical History (Updated 10/06/21 @ 11:35 by Jean Claude Givens MD) Acute cholecystitis due to biliary calculus Alberto's esophagus History of cancer with in 1 segment s/p cryoablation BPH (benign prostatic hyperplasia) C. 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 CLICKS-NO LOCKING Surgical History History of back surgery History of cardiac cath Remote history of, mild, nonobstructive CAD noted History of carpal tunnel release RIGHT History of cataract surgery R/L History of colonoscopy MULTIPLE-LAST ONE 12/2020 History of cystoscopy with stent History of esophagogastroduodenoscopy (EGD) MULTIPLE History of total knee arthroplasty Bilateral Status post total shoulder arthroplasty R/L Family History Sister Family history of diabetes mellitus Brother Family history of diabetes mellitus Uncle Family history of diabetes mellitus Father Family history of diabetes mellitus Social History Smoking Status: Former smoker Second Hand Exposure: No; Hx Alcohol Use: Yes Alcohol type: beer Hx Substance Use: No Preferred Language: Uzbek Communication Ability: Effective Barrel Tester Required: No Beliefs That Will Affect Care: None marital status: Current Living Situation: Spouse current occupational status: retired Other Information That Helps Us Care for You: No Feels Safe at Home: Yes Safety Concerns: Feels Safe At This Time Assistive Devices: Glasses Allergies Allergies Allergy/AdvReac Type Severity Reaction Status Date / Time No Known Allergies Allergy Verified 03/30/21 12:45 Home Meds Home Medications Medication Instructions Recorded Confirmed gabapentin 300 mg capsule 600 mg PO BID 12/29/17 10/06/21 magnesium oxide 400 mg (241.3 mg 400 mg PO QAM 12/29/17 10/06/21 magnesium) tablet (MgO) metformin 1,000 mg tablet 1,000 mg PO BIDM 12/29/17 10/06/21 multivit with minerals-iron 18 1 tab PO QAM 12/29/17 10/06/21 mg-folic ac 400 mcg-vit K 25 mcg tablet (Multi-Day Plus Minerals) pantoprazole 40 mg tablet,delayed 40 mg PO BID 12/29/17 10/06/21 release (Protonix) sertraline 50 mg tablet 50 mg PO HS 12/29/17 10/06/21 tamsulosin 0.4 mg capsule 0.4 mg PO QPM 12/29/17 10/06/21 insulin glargine 100 unit/mL 15 unit SUBCUT 07/01/19 10/06/21 subcutaneous solution latanoprost 0.005 % eye drops 1 drp OPHTHALMIC (EYE) HS 07/01/19 10/06/21 lisinopril 5 mg tablet 5 mg PO QAM 07/01/19 10/06/21 rosuvastatin 40 mg tablet 40 mg PO HS 01/17/21 10/06/21 fluticasone propionate 50 2 spray INTRANASAL Q12H PRN 02/19/21 10/06/21 mcg/actuation nasal spray,suspension ferrous sulfate 325 mg (65 mg 325 mg PO QAM 03/12/21 10/06/21 iron) tablet (iron) docusate sodium 100 mg capsule 100 mg PO BID PRN 03/14/21 10/06/21 (Colace) cyanocobalamin (vitamin B-12) 100 100 mcg PO DAILY 10/06/21 10/06/21 mcg tablet (Vitamin B-12) fluticasone 250 mcg-salmeterol 50 1 inh INHALATION BID 10/06/21 10/06/21 mcg/dose blistr powdr for inhalation metoprolol succinate 25 mg 12.5 mg PO DAILY 10/06/21 10/06/21 tablet,extended release 24 hr Results & Data (ED) Vital Signs Vital Signs - 24 hr 10/06/21 06:23 10/06/21 06:28 10/06/21 08:00 Temperature 35.9 C L Temperature Source Temporal Artery Scan Pulse Rate 122 H Pulse Rate [Apical] 63 Respiratory Rate 22 22 Respiratory Effort / Characteristics Non-Labored Spontaneous Respiratory Depth Normal Blood Pressure 156/91 H Blood Pressure [Right Arm] 166/76 H Blood Pressure Mean 112 Blood Pressure Mean [Right Arm] 106 Pulse Oximetry 96 94 Oxygen Delivery Method Room Air Room Air Room Air Oxygen Flow Rate Sepsis Recent Fever Within 48 Hours No Sepsis New/Unexplained Change in Mental Status No Sepsis Action Taken by Nursing No Action Required 10/06/21 08:45 Temperature Temperature Source Pulse Rate Pulse Rate [Apical] 61 Respiratory Rate 22 Respiratory Effort / Characteristics Non-Labored Spontaneous Respiratory Depth Normal Blood Pressure Blood Pressure [Right Arm] 172/75 H Blood Pressure Mean Blood Pressure Mean [Right Arm] 107 Pulse Oximetry 96 Oxygen Delivery Method Nasal Cannula Oxygen Flow Rate 3 Sepsis Recent Fever Within 48 Hours Sepsis New/Unexplained Change in Mental Status Sepsis Action Taken by Nursing Laboratory Data Result diagrams: 10/06/21 06:41 10/06/21 06:41 Lab Results 10/06/21 10/06/21 10/06/21 Range/Units 06:41 06:41 06:41 WBC 10.59 (4.8-10.8) K/uL RBC 4.93 (4.7-6.1) M/uL Hgb 15.5 (14.0-18.0) g/dL Hct 44.2 (42-52) % MCV 89.7 (80-100) fL MCH 31.4 (25-34) pg MCHC 35.1 (32-36) g/dL RDW Std Deviation 47.7 H (36.4-46.3) fL RDW Coeff of Lachelle 14.6 H (11.5-14.5) % Plt Count 151 (130-400) K/uL MPV 9.9 (7.4-10.4) fL Immature Gran % (Auto) 0.3 % Neut % (Auto) 67.0 % Lymph % (Auto) 24.7 % [place] % (Auto) 7.1 % Eos % (Auto) 0.7 % Baso % (Auto) 0.2 % Neut # (Auto) 7.10 H (1.4-6.5) K/uL Lymph # (Auto) 2.62 (1.2-3.4) K/uL [place] # (Auto) 0.75 H (0.11-0.59) K/uL Eos # (Auto) 0.07 (0-0.5) K/uL Baso # (Auto) 0.02 (0-0.2) K/uL Immature Gran # (Auto) 0.03 H (0.00-0.02) K/uL Sodium 136 (136-145) mmol/L Potassium 4.0 (3.5-5.1) mmol/L Chloride 105 (98-107) mmol/L Carbon Dioxide 18 L (21-32) mmol/L Anion Gap 13 H (3-11) BUN 22 (6-23) mg/dl Creatinine 0.97 (0.6-1.4) mg/dl Est Cr Clr Drug Dosing 72.2 ml/min Est GFR ( Amer) 88.1 ml/min Est GFR (Non-Af Amer) 76.1 ml/min BUN/Creatinine Ratio 22.7 H (10-20) Glucose 194 H (70-99(Fasting)) mg/dl Lactate 2.7 H* (0.4-2.0) mmol/L Calcium 9.8 (8.5-10.1) mg/dl Total Bilirubin 0.8 (0.2-1.0) mg/dl AST 16 (13-39) U/L ALT 12 (7-52) U/L Alkaline Phosphatase 61 (34-104) U/L Troponin I High Sens 4.6 (0-20) pg/ml Total Protein 8.3 (6.0-8.3) gm/dl Albumin 4.7 (3.4-5.0) gm/dl Globulin 3.6 (2.5-4.0) gm/dl Albumin/Globulin Ratio 1.3 (0.9-2) Lipase 30 (11-82) U/L Stl C. cayetanensis PCR (NotDetected) Stool Rotavirus A PCR (NotDetected) Stl Adenov F 40/41 PCR (NotDetected) Stool Astrovirus (PCR) (NotDetected) Stool Campylobacter PCR (NotDetected) Stl C.difficile Tox A&B (Negative) Stl C. diff Tox A/B PCR (NotDetected) Stool Cryptosporidium PCR (NotDetected) Stl E.coli Shiga Tox PCR (NotDetected) Stl Enterotoxigenic E PCR (NotDetected) Stool EPEC (PCR) (NotDetected) Stool EAEC (PCR) (NotDetected) Stl E. histolytica PCR (NotDetected) Stool Giardia Lamblia PCR (NotDetected) Stool Salmonella PCR (NotDetected) Stool Sapovirus (PCR) (NotDetected) Stl P. shigelloides PCR (NotDetected) Stl Shigella/EIEC PCR (NotDetected) St Y.enterocolitica PCR (NotDetected) Stool Vibrio (PCR) (NotDetected) Stl Vibrio cholerae PCR (NotDetected) Stl Norovirus GI/GII PCR (NotDetected) SARS-CoV-2, RNA, NAAT (NEGATIVE) 10/06/21 10/06/21 10/06/21 Range/Units 06:53 07:00 08:36 WBC (4.8-10.8) K/uL RBC (4.7-6.1) M/uL Hgb (14.0-18.0) g/dL Hct (42-52) % MCV (80-100) fL MCH (25-34) pg MCHC (32-36) g/dL RDW Std Deviation (36.4-46.3) fL RDW Coeff of Lachelle (11.5-14.5) % Plt Count (130-400) K/uL MPV (7.4-10.4) fL Immature Gran % (Auto) % Neut % (Auto) % Lymph % (Auto) % [place] % (Auto) % Eos % (Auto) % Baso % (Auto) % Neut # (Auto) (1.4-6.5) K/uL Lymph # (Auto) (1.2-3.4) K/uL [place] # (Auto) (0.11-0.59) K/uL Eos # (Auto) (0-0.5) K/uL Baso # (Auto) (0-0.2) K/uL Immature Gran # (Auto) (0.00-0.02) K/uL Sodium (136-145) mmol/L Potassium (3.5-5.1) mmol/L Chloride (98-107) mmol/L Carbon Dioxide (21-32) mmol/L Anion Gap (3-11) BUN (6-23) mg/dl Creatinine (0.6-1.4) mg/dl Est Cr Clr Drug Dosing ml/min Est GFR ( Amer) ml/min Est GFR (Non-Af Amer) ml/min BUN/Creatinine Ratio (10-20) Glucose (70-99(Fasting)) mg/dl Lactate 2.3 H* (0.4-2.0) mmol/L Calcium (8.5-10.1) mg/dl Total Bilirubin (0.2-1.0) mg/dl AST (13-39) U/L ALT (7-52) U/L Alkaline Phosphatase (34-104) U/L Troponin I High Sens (0-20) pg/ml Total Protein (6.0-8.3) gm/dl Albumin (3.4-5.0) gm/dl Globulin (2.5-4.0) gm/dl Albumin/Globulin Ratio (0.9-2) Lipase (11-82) U/L Stl C. cayetanensis PCR Not Detected (NotDetected) Stool Rotavirus A PCR Not Detected (NotDetected) Stl Adenov F 40/41 PCR Not Detected (NotDetected) Stool Astrovirus (PCR) Not Detected (NotDetected) Stool Campylobacter PCR Not Detected (NotDetected) Stl C.difficile Tox A&B Positive Cdiff Toxin A* (Negative) Stl C. diff Tox A/B PCR C.diff Gene Detected A (NotDetected) Stool Cryptosporidium PCR Not Detected (NotDetected) Stl E.coli Shiga Tox PCR Not Detected (NotDetected) Stl Enterotoxigenic E PCR Not Detected (NotDetected) Stool EPEC (PCR) DETECTED A* (NotDetected) Stool EAEC (PCR) Not Detected (NotDetected) Stl E. histolytica PCR Not Detected (NotDetected) Stool Giardia Lamblia PCR Not Detected (NotDetected) Stool Salmonella PCR Not Detected (NotDetected) Stool Sapovirus (PCR) Not Detected (NotDetected) Stl P. shigelloides PCR Not Detected (NotDetected) Stl Shigella/EIEC PCR Not Detected (NotDetected) St Y.enterocolitica PCR Not Detected (NotDetected) Stool Vibrio (PCR) Not Detected (NotDetected) Stl Vibrio cholerae PCR Not Detected (NotDetected) Stl Norovirus GI/GII PCR Not Detected (NotDetected) SARS-CoV-2, RNA, NAAT NEGATIVE (NEGATIVE) Administered Medications Piperacillin Sod/Tazobactam (Sod 3.375 gm/ Dextrose) 115 mls @ 28.75 mls/hr IV Q8H [facility]; Protocol Stop: 10/16/21 13:59 Last Admin: 10/06/21 13:18 Dose: 28.8 mls/hr Documented by: [id number] Sodium Chloride (Nss 1000ml) 1,000 mls @ 100 mls/hr IV .Q10H [facility] Stop: 11/05/21 11:59 Last Admin: 10/06/21 12:00 Dose: 100 mls/hr Documented by: [id number] Insulin Aspart (Insulin Aspart Per Unit) 0 units SC ACHS [facility] Stop: 11/05/21 11:29 Last Admin: 10/06/21 13:14 Dose: 5 units Documented by: [id number] Cosigned by: [id number] Raspberry (Raspberry Syrup 5 Ml Udp) 5 ml PO Q6 EVA Stop: 10/16/21 11:59 Last Admin: 10/06/21 13:11 Dose: 5 ml Documented by: [id number] Vancomycin HCl (Vancomycin Hcl 125 Mg/2.5ml Soln) 125 mg PO Q6 EVA Stop: 10/16/21 11:59 Last Admin: 10/06/21 13:11 Dose: 125 mg Documented by: [id number] Discontinued Medications Fentanyl Citrate (Fentanyl Citrate 100 Mcg/2 Ml Vial) 100 mcg IV NOW STA Stop: 10/06/21 08:19 Last Admin: 10/06/21 08:22 Dose: 100 mcg Documented by: [id number] Sodium Chloride (Nss 1000ml) 1,000 mls @ 999 mls/hr IV .Q1H1M STA Stop: 10/06/21 07:28 Last Infusion: 10/06/21 07:57 Dose: 0 mls/hr Documented by: [id number] Admin: 10/06/21 06:56 Dose: 999 mls/hr Documented by: [id number] Piperacillin Sod/Tazobactam Sod (Zosyn) 4.5 gm in 120 mls @ 240 mls/hr IV NOW ONE Stop: 10/06/21 09:18 Last Infusion: 10/06/21 10:30 Dose: 0 mls/hr Documented by: [id number] Admin: 10/06/21 09:05 Dose: 240 mls/hr Documented by: [id number] Ioversol (Optiray 320 100ml) 94 ml IV ONCE ONE Stop: 10/06/21 07:50 Last Admin: 10/06/21 07:52 Dose: 94 ml Documented by: [id number] Ketorolac Tromethamine (Ketorolac Tromethamine 15 Mg/Ml Vial) 15 mg IV NOW ONE Stop: 10/06/21 12:40 Last Admin: 10/06/21 12:46 Dose: 15 mg Documented by: [id number] Morphine Sulfate (Morphine Sulfate 4 Mg/Ml 1 Ml Carp\Vial) 4 mg IV NOW STA Stop: 10/06/21 06:29 Last Admin: 10/06/21 06:56 Dose: 4 mg Documented by: [id number] Morphine Sulfate (Morphine Sulfate 4 Mg/Ml 1 Ml Carp\Vial) 4 mg IV NOW STA Stop: 10/06/21 08:50 Last Admin: 10/06/21 12:15 Dose: Not Given Documented by: [id number] Morphine Sulfate (Morphine Sulfate 4 Mg/Ml 1 Ml Carp\Vial) 4 mg IV Q4H PRN PRN Reason: Pain (6,7,8,9,10) Stop: 10/20/21 10:45 Last Admin: 10/06/21 10:57 Dose: 4 mg Documented by: [id number] Ondansetron HCl (Ondansetron Inj 2 Mg/Ml 2 Ml Vial) 4 mg IV NOW STA Stop: 10/06/21 06:29 Last Admin: 10/06/21 06:56 Dose: 4 mg Documented by: [id number] Ondansetron HCl (Ondansetron Inj 2 Mg/Ml 2 Ml Vial) 4 mg IV NOW STA Stop: 10/06/21 08:50 Last Admin: 10/06/21 12:15 Dose: Not Given Documented by: [id number] Imaging Data Radiologist's Impression: Abdomen/Pelvis CT 10/06/21 06:28 CT abd pelvis IV con only CLINICAL HISTORY: abd pain, n/v TECHNIQUE: Helical axial images of the abdomen and pelvis were obtained and dis played. Automated dose lowering techniques and/or adjustment according to patient size were utilized for this exam. This exam was performed with intravenous contrast. CT DOSE: 502.85 mGy.cm COMPARISON: Comparison is made to CT abdomen pelvis 03/29/2021 FINDINGS: Lower chest: Bibasilar atelectasis versus scarring is seen. Liver: Unremarkable. No focal lesions are seen. Gallbladder and biliary tree: Layering stones are seen in the gallbladder. There is mild pericholecystic edema and the gallbladder wall appears mildly thickened, measuring approximately 4 mm. No intra- or extrahepatic biliary ductal dilation. Pancreas: Fatty replacement of the pancreas is seen. Spleen: Unremarkable. Adrenals: Unremarkable. Kidneys and ureters: Nonobstructive nephrolithiasis is seen. Bladder: Limited evaluation due to underdistention. Reproductive organs: Prostatomegaly is seen. Bowel: Diverticulosis is seen without evidence of diverticulitis. The appendix is normal. A hiatal hernia is seen. Lymph nodes Retroperitoneal: Unremarkable. Mesenteric: Unremarkable. Pelvic: Unremarkable. Peritoneum: Normal. Vessels: Atherosclerotic calcifications are seen. Abdominal wall: There is a left fat-containing inguinal hernia and right fat and bowel containing inguinal hernia. Bones: Degenerative changes in the visualized spine. IMPRESSION: Cholelithiasis with pericholecystic fluid and gallbladder wall thickening concerning for acute cholecystitis. Correlation with Rojas's sign on clinical exam is recommended. ACT 112: Negative or not required by law. Electronically signed by: Michael Zafar M.D. 10/06/2021 8:20 AM Discharge Plan Visit Data Chief Complaint: Abdominal Pain Stated Complaint: ABD PAIN ED Provider: Kolby Kim Discharge Problem: Cholecystitis, acute, Nausea Patient Disposition: Admitted As Inpatient Discharge Instructions Interventions: ED Discharge Assessment Last Done: 10/06/21 10:30
[2021-10-06 06:56] LABS: Basophils # (auto) 0.02 K/uL (0-0.2); Basophils % (auto) 0.2 %; Eosinophils # (auto) 0.07 K/uL (0-0.5); Eosinophils % (auto) 0.7 %; Hematocrit (blood only) 44.2 % (42-52); Hemoglobin 15.5 g/dL (14.0-18.0); Immature Granulocytes # (auto) 0.03 K/uL (0.00-0.02); Immature Granulocytes % (auto) 0.3 %; Lymphocytes # (auto) 2.62 K/uL (1.2-3.4); Lymphocytes % (auto) 24.7 %; Mean Corpuscular Hemoglobin 31.4 pg (25-34); Mean Corpuscular Hgb Conc 35.1 g/dL (32-36); Mean Corpuscular Volume 89.7 fL (80-100); Mean Platelet Volume 9.9 fL (7.4-10.4); Monocytes # (auto) 0.75 K/uL (0.11-0.59); Monocytes % (auto) 7.1 %; Platelet Count 151 K/uL (130-400); RDW Coefficient of Variation 14.6 % (11.5-14.5); RDW Standard Deviation 47.7 fL (36.4-46.3); Red Blood Count 4.93 M/uL (4.7-6.1); White Blood Count 10.59 K/uL (4.8-10.8)
[2021-10-06 07:16] LABS: Albumin Globulin Ratio 1.3 (0.9-2); Albumin Level 4.7 gm/dl (3.4-5.0); BUN Creatinine Ratio 22.7 (10-20); Bilirubin,Total 0.8 mg/dl (0.2-1.0); Calcium 9.8 mg/dl (8.5-10.1); Creatinine Clr Calc Pharmacy 72.2 ml/min; Est GFR (African American) 88.1 ml/min; Est GFR (Non-African American) 76.1 ml/min; Globulin 3.6 gm/dl (2.5-4.0); Total Protein 8.3 gm/dl (6.0-8.3)
[2021-10-06 07:20] LABS: Troponin I High Sensitivity 4.6 pg/ml (0-20)
[2021-10-06] MEDS ORDERED: OPTIRAY 320 100ml IV ONE (07:49)
[2021-10-06] MEDS ORDERED: fentaNYL citrate 100 MCG/2 ML VIAL IV STA (08:18)
--- NOTE | 2021-10-06 08:21 | CT Scan Report ---
CT abd pelvis IV con only CLINICAL HISTORY: abd pain, n/v TECHNIQUE: Helical axial images of the abdomen and pelvis were obtained and displayed. Automated dose lowering techniques and/or adjustment according to patient size were utilized for this exam. This e xam was performed with intravenous contrast. CT DOSE: 502.85 mGy.cm COMPARISON: Comparison is made to CT abdomen pelvis 03/29/2021 FINDINGS: Lower chest: Bibasilar atelectasis versus scarring is seen. Liver: Unremarkable. No focal lesions are seen. Gallbladder and biliary tree: Layering stones are seen in the gallbladder. There is mild pericholecys tic edema and the gallbladder wall appears mildly thickened, measuring approximately 4 mm. No intra- or extrahepatic biliary ductal dilation. Pancreas: Fatty replacement of the pancreas is seen. Spleen: Unremarkable. Adrenals: Unremarkable. Kidneys and ureters: Nonobstructive nephrolithiasis is seen. Bladder: Limited evaluation due to underdistention. Reproductive organs: Prostatomegaly is seen. Bowel: Diverticulosis is seen without evidence of diverticulitis. The appendix is normal. A hiatal he rnia is seen. Lymph nodes Retroperitoneal: Unremarkable. Mesenteric: Unremarkable. Pelvic: Unremarkable. Peritoneum: Normal. Vessels: Atherosclerotic calcifications are seen. Abdominal wall: There is a left fat-containing inguinal hernia and right fat and bowel containing ing uinal hernia. Bones: Degenerative changes in the visualized spine. IMPRESSION: Cholelithiasis with pericholecystic fluid and gallbladder wall thickening concerning for acute cholec ystitis. Correlation with Rojas's sign on clinical exam is recommended. ACT 112: Negative or not required by law. Electronically signed by: Michael Zafar M.D. 10/06/2021 8:20 AM
[2021-10-06 08:32] LABS: Adenovirus F 40/41 PCR Not Detected (NotDetected); Astrovirus PCR Not Detected (NotDetected); Campylobacter PCR Not Detected (NotDetected); Cryptosporidium PCR Not Detected (NotDetected); Cyclospora cayetanensis PCR Not Detected (NotDetected); Entamoeba histolytica PCR Not Detected (NotDetected); Enteroaggregative E.coli(EAEC) Not Detected (NotDetected); Enterotoxigenic E.coli (ETEC) Not Detected (NotDetected); Giardia lamblia PCR Not Detected (NotDetected); Norovirus GI/GII PCR Not Detected (NotDetected); Plesiomonas shigelloides PCR Not Detected (NotDetected); Rotavirus A PCR Not Detected (NotDetected); Salmonella PCR Not Detected (NotDetected); Sapovirus PCR Not Detected (NotDetected); Shiga-like Toxin E.coli (STEC) Not Detected (NotDetected); Shigella/Enteroinvasive E.coli Not Detected (NotDetected); Vibrio cholerae PCR Not Detected (NotDetected); Vibrio species PCR Not Detected (NotDetected); Yersinia enterocolitica PCR Not Detected (NotDetected)
[2021-10-06] MEDS ORDERED: PIPERACILLIN/TAZOBACTAM 4.5 GM/120 ML BAG IV ONE (08:49)
[2021-10-06 09:27] LABS: Cdiff Antigen Positive; Enteropathogenic E.coli (EPEC) DETECTED (NotDetected)
[2021-10-06 09:28] LABS: Cdiff Toxin A+B Positive Cdiff Toxin (Negative)
[2021-10-06] MEDS ORDERED: DEXTROSE 50% 50 ML SYRINGE IV PRN (10:46)
[2021-10-06] MEDS ORDERED: MoRPHine SULFATE 4 MG/ML 1 ML CARP\\VIAL IV PRN (10:46)
[2021-10-06] MEDS ORDERED: GLUCOSE 10 TABS/TUBE PO PRN (10:46)
[2021-10-06] MEDS ORDERED: CARBOHYDRATES FOR HYPOGLYCEMIA PO PRN (10:46)
[2021-10-06] MEDS ORDERED: ACETAMINOPHEN 325 MG TAB PO PRN (10:46)
[2021-10-06] MEDS ORDERED: GLUCOSE 40% GEL 15 GM TUBE PO PRN (10:46)
[2021-10-06] MEDS ORDERED: MoRPHine SULFATE 2 MG/ML CARP IV PRN (10:46)
[2021-10-06] MEDS ORDERED: GLUCAGON FOR INJ 1 MG VIAL SQ PRN (10:46)
[2021-10-06] MEDS ORDERED: ONDANSETRON INJ 2 MG/ML 2 ML VIAL IV PRN (10:46)
--- NOTE | 2021-10-06 10:52 | History & Physical Report ---
Date of Service October 06, 2021 Assessment & Plan (1) Cholecystitis, acute: Plan: Admit to [facility] Patient presenting from home with reports of abdominal pain In the ED, CT ABD/pelvis showing cholelithiasis with pericholecystic fluid and gallbladder wall thickening concerning for acute cholecystitis. WBC 10.5K, afebrile. Lactate 2.7 --> 2.3. S/p IV Zosyn in the ED. Continue with Continue IVF Continue to trend lactate General surgery consult- plan for surgery tomorrow- npo after midnight Patient is optimized to go for surgery (2) C. difficile diarrhea: Plan: C. difficile toxin and gene positive History of C. difficile in 2018 Patient currently does not report significant diarrhea Start p.o. Vanco Stool also positive for EPEC --supportive care recommended at this time (3) CAD (coronary artery disease): Plan: Remote history of cardiac cath showing mild, nonobstructive disease Stress test December 2020 negative for ischemia Appears stable, no reports of chest pain, EKG without acute ST changes Continue beta-cesario and statin (4) HTN (hypertension): Plan: BP elevated, likely situational /due to pain For now continue home doses of metoprolol and lisinopril, make adjustments as needed (5) Diabetes mellitus, type 2: Plan: Hgb A1c 7.7 05/2021 Hold metformin, Lantus and NovoLog per protocol while hospitalized (6) Alberto's esophagus: Plan: History of cancer within 1 segment of the Alberto's s/p cryoablation Recent EGD 08/2021 with negative biopsies Continue PPI (7) Chronic obstructive pulmonary disease: Plan: No signs of acute exacerbation Continue home inhalers (8) BPH (benign prostatic hyperplasia): Plan: Continue tamsulosin (9) Depression with anxiety: Plan: Continue home med (10) DVT prophylaxis: Plan: sc heparin, last dose tonight. Admission and Anticipated Discharge Date Admission Date: October 06, 2021 History of Present Illness Chief Complaint: Abdominal pain Primary Care Provider: Sakshi Barros DO 76-year-old male with PMH DM type II, HLD, COPD, HTN, mild nonobstructive CAD, Alberto's esophagus with history of cancer within 1 segment s/p cryoablation, BPH, RLS, renal calculi, diverticulitis and diverticular bleed, depression, and other problems listed below who presents to the ED for evaluation of abdominal pain. Patient reports he started to feel generally unwell yesterday. Then around 11 PM, he developed upper abdominal pain. Patient reports pain persisted throughout the night and he then presented to the ED for further evaluation. He has had a few episodes of vomiting. Describes emesis as bilious in nature. Denies hematemesis and coffee-ground emesis. [place] as though he was constipated yesterday and took a stool softener. Had 1 bowel movement in the ED. nursing described it as soft/loose. Patient denies any recent diarrhea at home. No bright red blood per rectum or dark tarry stools. He denies chest pain or shortness of breath. No fevers or chills. Denies urinary symptoms. In the ED, CT ABD/pelvis is showing cholelithiasis with pericholecystic fluid and gallbladder wall thickening concerning for acute cholecystitis. Lactate 2.7 --> 2.3. Other labs unremarkable. Patient is hemodynamically stable. Patient was given IV fentanyl, IV morphine, IV Zofran, IVF, IV Zosyn. Allergies Allergy/AdvReac Type Severity Reaction Status Date / Time No Known Allergies Allergy Verified 03/30/21 12:45 Home Medications Medication Instructions Recorded Confirmed Type gabapentin 300 mg capsule 600 mg PO BID 12/29/17 10/06/21 History magnesium oxide 400 mg (241.3 mg 400 mg PO QAM 12/29/17 10/06/21 History magnesium) tablet (MgO) metformin 1,000 mg tablet 1,000 mg PO BIDM 12/29/17 10/06/21 History multivit with minerals-iron 18 1 tab PO QAM 12/29/17 10/06/21 History mg-folic ac 400 mcg-vit K 25 mcg tablet (Multi-Day Plus Minerals) pantoprazole 40 mg tablet,delayed 40 mg PO BID 12/29/17 10/06/21 History release (Protonix) sertraline 50 mg tablet 50 mg PO HS 12/29/17 10/06/21 History tamsulosin 0.4 mg capsule 0.4 mg PO QPM 12/29/17 10/06/21 History insulin glargine 100 unit/mL 15 unit SUBCUT HS 07/01/19 10/06/21 History subcutaneous solution latanoprost 0.005 % eye drops 1 drp OPHTHALMIC (EYE) HS 07/01/19 10/06/21 History lisinopril 5 mg tablet 5 mg PO QAM 07/01/19 10/06/21 History rosuvastatin 40 mg tablet 40 mg PO HS 01/17/21 10/06/21 History fluticasone propionate 50 2 spray INTRANASAL Q12H PRN 02/19/21 10/06/21 History mcg/actuation nasal spray,suspension ferrous sulfate 325 mg (65 mg 325 mg PO QAM 03/12/21 10/06/21 History iron) tablet (iron) docusate sodium 100 mg capsule 100 mg PO BID PRN 03/14/21 10/06/21 History (Colace) cyanocobalamin (vitamin B-12) 100 100 mcg PO DAILY 10/06/21 10/06/21 History mcg tablet (Vitamin B-12) fluticasone 250 mcg-salmeterol 50 1 inh INHALATION BID 10/06/21 10/06/21 History mcg/dose blistr powdr for inhalation metoprolol succinate 25 mg 12.5 mg PO DAILY 10/06/21 10/06/21 History tablet,extended release 24 hr Past Med/Surg History Medical History (Updated 10/06/21 @ 11:35 by Jean Claude Givens MD) Acute cholecystitis due to biliary calculus Alberto's esophagus History of cancer with in 1 segment s/p cryoablation BPH (benign prostatic hyperplasia) C. 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 disorder CLICKS-NO LOCKING Surgical History History of back surgery History of cardiac cath Remote history of, mild, nonobstructive CAD noted History of carpal tunnel release RIGHT History of cataract surgery R/L History of colonoscopy MULTIPLE-LAST ONE 12/2020 History of cystoscopy with stent History of esophagogastroduodenoscopy (EGD) MULTIPLE History of total knee arthroplasty Bilateral Status post total shoulder arthroplasty R/L Family History Sister Family history of diabetes mellitus Brother Family history of diabetes mellitus Uncle Family history of diabetes mellitus Father Family history of diabetes mellitus Social History Smoking Status: Former smoker Second Hand Exposure: No; Hx Alcohol Use: Yes Alcohol type: beer Hx Substance Use: No Preferred Language: Vietnamese Communication Ability: Effective 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 Operator Required: No Beliefs That Will Affect Care: None marital status: Current Living Situation: Spouse current occupational status: retired Other Information That Helps Us Care for You: No Feels Safe at Home: Yes Safety Concerns: Feels Safe At This Time Assistive Devices: Glasses Review of Systems Review of Systems: ROS per HPI, all other systems reviewed and negative Physical Exam Constitutional: WD/WN, vitals as above Eyes: PERRL, conjunctivae normal, anicteric sclerae ENMT: external ear and nose normal, oropharynx normal Respiratory: normal respiratory effort, lungs clear to auscultation Cardiovascular: Rate/Rhythm: regular rate and regular rhythm Vessels: normal peripheral pulses Extremities: no edema Gastrointestinal (Abdomen): Inspection/Auscultation: normal bowel sounds; abdomen not distended Percussion/Palpation: + abdomen tender (Upper abdomen) and abdomen soft; no hepatosplenomegaly Musculoskeletal: no cyanosis or clubbing, extremities motor strength 5/5 Skin: no rashes, warm and dry Neurologic: PERRL, EOMI, accommodation nl, no face palsy, no dysarthria Psychiatric: A+Ox3, euthymic affect Results & Data Results & Data ([facility]) Vital Signs (Past 12 Hours) Vital Signs Temp Pulse Pulse Resp BP BP Pulse Ox 10/06/21 08:45 61 22 172/75 H 96 10/06/21 08:00 63 22 166/76 H 94 10/06/21 06:23 35.9 C L 122 H 22 156/91 H 96 Laboratory Results Short CBC 10/06/21 10/06/21 10/06/21 Range/Units 06:41 06:41 08:36 WBC 10.59 (4.8-10.8) K/uL Hgb 15.5 (14.0-18.0) g/dL Hct 44.2 (42-52) % Plt Count 151 (130-400) K/uL Lactate 2.7 H* 2.3 H* (0.4-2.0) mmol/L BMP 10/06/21 06:41 Sodium 136 Potassium 4.0 Chloride 105 Carbon Dioxide 18 L BUN 22 Creatinine 0.97 Glucose 194 H Calcium 9.8 Liver Function 10/06/21 Range/Units 06:41 Total Bilirubin 0.8 (0.2-1.0) mg/dl AST 16 (13-39) U/L ALT 12 (7-52) U/L Alkaline Phosphatase 61 (34-104) U/L Albumin 4.7 (3.4-5.0) gm/dl Diagnostic Findings Abdomen/Pelvis CT 10/06/21 06:28 CT abd pelvis IV con only CLINICAL HISTORY: abd pain, n/v TECHNIQUE: Helical axial images of the abdomen and pelvis were obtained and displayed. Automated dose lowering techniques and/or adjustment according to patient size were utilized for this exam. This exam was performed with intravenous contrast. CT DOSE: 502.85 mGy.cm COMPARISON: Comparison is made to CT abdomen pelvis 03/29/2021 FINDINGS: Lower chest: Bibasilar atelectasis versus scarring is seen. Liver: Unremarkable. No focal lesions are seen. Gallbladder and biliary tree: Layering stones are seen in the gallbladder. There is mild pericholecystic edema and the gallbladder wall appears mildly thickened, measuring approximately 4 mm. No intra- or extrahepatic biliary ductal dilation. Pancreas: Fatty replacement of the pancreas is seen. Spleen: Unremarkable. Adrenals: Unremarkable. Kidneys and ureters: Nonobstructive nephrolithiasis is seen. Bladder: Limited evaluation due to underdistention. Reproductive organs: Prostatomegaly is seen. Bowel: Diverticulosis is seen without evidence of diverticulitis. The appendix is normal. A hiatal hernia is seen. Lymph nodes Retroperitoneal: Unremarkable. Mesenteric: Unremarkable. Pelvic: Unremarkable. Peritoneum: Normal. Vessels: Atherosclerotic calcifications are seen. Abdominal wall: There is a left fat-containing inguinal hernia and right fat and bowel containing inguinal hernia. Bones: Degenerative changes in the visualized spine. IMPRESSION: Cholelithiasis with pericholecystic fluid and gallbladder wall thickening concer jess for acute cholecystitis. Correlation with Rojas's sign on clinical exam is recommended. ACT 112: Negative or not required by law. Electronically signed by: Michael Zafar M.D. 10/06/2021 8:20 AM Code Status & VTE Plan Code Status Patient is a full code as per my discussion with him. Patient states that his , Shalonda, would be his decision-maker in the event he were to be unable to. VTE Prophylaxis Plan VTE Prophylaxis will be ordered: Yes Supervising Physician Co-Signing Physician Notes Patient seen and examined independently. Chart reviewed. Case discussed with Charline VILLA and agree with the documentation above. In summary, this is a 76 year old male who presented to the ED with abdominal pain for 1 day and found to have cholelithiasis with acute cholecystitis. Also had diarrhea in ED and found to have C diff and EPEC. Vitals stable, afebrile. Labs with no leucocytosis, Cr 0.97, lipase normal, LFT normal, electrolytes normal, trop negative. Lactate 2.7 on presentation, now normal after IVF. Seen by surgery and plan for surgery tomorrow. During my encounter, patient was uncomfortable due to pain and asking for pain medication- stated fentanyl took the edge off but morphine not helping. AAO, MMM, chest clear, heart sounds normal, abd with periumbilical tenderness, bowel sounds present, no edema. Given a dose of toradol which brought down pain from 10 to 5. No fever, chills, chest pain, shortness of breath, nausea, vomiting. Denies any history of cardiopulmonary issues or VTE. Quit smoking long time back. Social drinker. Discussed about the CT findings, lab finding and plan. Continue zosyn, ivf, po vanc for cholecystitis and C diff. Okay for clears if tolerates. NPO after midnight. Optimized to proceed to surgery tomorrow. Rest as per the note above.
--- NOTE | 2021-10-06 11:34 | Surgery Consultation ---
Date of Consultation October 06, 2021 Assessment & Plan (1) Acute cholecystitis due to biliary calculus: -IVF -IV abx =to OR in AM if medically cleared History of Present Illness Attending Physician: Arvind Lopez MD History of Present Illness This is a 76-year-old with of BPH, kidney stones, hypertension, type 2 diabetes who presented to ED with abdominal pain which began last night. He has associated nausea and vomiting. Patient denies any diarrhea, fever or chills. He also denies any chest pain or shortness of breath. Allergies Allergy/AdvReac Type Severity Reaction Status Date / Time No Known Allergies Allergy Verified 03/30/21 12:45 Home Medications Medication Instructions Recorded Confirmed Type gabapentin 300 mg capsule 600 mg PO BID 12/29/17 10/06/21 History magnesium oxide 400 mg (241.3 mg 400 mg PO QAM 12/29/17 10/06/21 History magnesium) tablet (MgO) metformin 1,000 mg tablet 1,000 mg PO BIDM 12/29/17 10/06/21 History multivit with minerals-iron 18 1 tab PO QAM 12/29/17 10/06/21 History mg-folic ac 400 mcg-vit K 25 mcg tablet (Multi-Day Plus Minerals) pantoprazole 40 mg tablet,delayed 40 mg PO BID 12/29/17 10/06/21 History release (Protonix) sertraline 50 mg tablet 50 mg PO HS 12/29/17 10/06/21 History tamsulosin 0.4 mg capsule 0.4 mg PO QPM 12/29/17 10/06/21 History insulin glargine 100 unit/mL 15 unit SUBCUT HS 07/01/19 10/06/21 History subcutaneous solution latanoprost 0.005 % eye drops 1 drp OPHTHALMIC (EYE) HS 07/01/19 10/06/21 History lisinopril 5 mg tablet 5 mg PO QAM 07/01/19 10/06/21 History rosuvastatin 40 mg tablet 40 mg PO HS 01/17/21 10/06/21 History fluticasone propionate 50 2 spray INTRANASAL Q12H PRN 02/19/21 10/06/21 History mcg/actuation nasal spray,suspension ferrous sulfate 325 mg (65 mg 325 mg PO QAM 03/12/21 10/06/21 History iron) tablet (iron) docusate sodium 100 mg capsule 100 mg PO BID PRN 03/14/21 10/06/21 History (Colace) cyanocobalamin (vitamin B-12) 100 100 mcg PO DAILY 10/06/21 10/06/21 History mcg tablet (Vitamin B-12) fluticasone 250 mcg-salmeterol 50 1 inh INHALATION BID 10/06/21 10/06/21 History mcg/dose blistr powdr for inhalation metoprolol succinate 25 mg 12.5 mg PO DAILY 10/06/21 10/06/21 History tablet,extended release 24 hr Patient History Medical History (Updated 10/06/21 @ 11:35 by Jean Claude Givens MD) Acute cholecystitis due to biliary calculus Alberto's esophagus History of cancer with in 1 segment s/p cryoablation BPH (benign prostatic hyperplasia) C. 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 CLICKS-NO LOCKING Surgical History History of back surgery History of cardiac cath Remote history of, mild, nonobstructive CAD noted History of carpal tunnel release RIGHT History of cataract surgery R/L History of colonoscopy MULTIPLE-LAST ONE 12/2020 History of cystoscopy with stent History of esophagogastroduodenoscopy (EGD) MULTIPLE History of total knee arthroplasty Bilateral Status post total shoulder arthroplasty R/L Family History Sister Family history of diabetes mellitus Brother Family history of diabetes mellitus Uncle Family history of diabetes mellitus Father Family history of diabetes mellitus Social History Smoking Status: Former smoker Second Hand Exposure: No; Hx Alcohol Use: Yes Alcohol type: beer Hx Substance Use: No Preferred Language: Solomon Islander Communication Ability: Effective Lead Medical Technologist Required: No Beliefs That Will Affect Care: None marital status: Current Living Situation: Spouse current occupational status: retired Other Information That Helps Us Care for You: No Feels Safe at Home: Yes Safety Concerns: Feels Safe At This Time Assistive Devices: Glasses Review of Systems Constitutional: + anorexia; no fever and no chills Eyes: no problem reported Ear, Nose, Mouth, Throat: no problem reported Respiratory: no cough and no dyspnea Cardiovascular: no chest pain Gastrointestinal: + abdominal pain and + nausea; no vomiting, no change in bowel habits and no change in stools Genitourinary: no dysuria Musculoskeletal: + back pain; no neck pain Integumentary: no rash and no lesions Neurologic: no localized weakness and no generalized weakness Psychiatric: no behavioral changes Physical Exam Constitutional: WD/WN, vitals as above Eyes: PERRL, conjunctivae normal, anicteric sclerae ENMT: external ear and nose normal, oropharynx normal Neck: trachea midline Respiratory: normal respiratory effort, lungs clear to auscultation Cardiovascular: RRR, no murmur, no edema Gastrointestinal (Abdomen): Inspection/Auscultation: abdomen normal to inspection and normal bowel sounds; abdomen not distended, no visible herniation and no abdominal surgical scar Percussion/Palpation: + abdomen tender and abdomen soft; no guarding Musculoskeletal: Head/Neck/Chest: normocephalic and head atraumatic Skin: no rashes, warm and dry Results & Data ([facility]) Vital Signs (Past 12 Hours) Vital Signs Temp Pulse Pulse Pulse Resp BP BP 10/06/21 10:30 36.5 C 70 20 172/56 H 10/06/21 08:45 61 22 172/75 H 10/06/21 08:00 63 22 166/76 H 10/06/21 06:23 35.9 C L 122 H 22 156/91 H Pulse Ox 10/06/21 10:30 94 10/06/21 08:45 96 10/06/21 08:00 94 10/06/21 06:[address] abd pelvis IV con only CLINICAL HISTORY: abd pain, n/v TECHNIQUE: Helical axial images of the abdomen and pelvis were obtained and displayed. Automated dose lowering techniques and/or adjustment according to patient size were utilized for this exam. This exam was performed with intravenous contrast. CT DOSE: 502.85 mGy.cm COMPARISON: Comparison is made to CT abdomen pelvis 03/29/2021 FINDINGS: Lower chest: Bibasilar atelectasis versus scarring is seen. Liver: Unremarkable. No focal lesions are seen. Gallbladder and biliary tree: Layering stones are seen in the gallbladder. There is mild pericholecystic edema and the gallbladder wall appears mildly thickened, measuring approximately 4 mm. No intra- or extrahepatic biliary ductal dilation. Pancreas: Fatty replacement of the pancreas is seen. Spleen: Unremarkable. Adrenals: Unremarkable. Kidneys and ureters: Nonobstructive nephrolithiasis is seen. Bladder: Limited evaluation due to underdistention. Reproductive organs: Prostatomegaly is seen. Bowel: Diverticulosis is seen without evidence of diverticulitis. The appendix is normal. A hiatal hernia is seen. Lymph nodes Retroperitoneal: Unremarkable. Mesenteric: Unremarkable. Pelvic: Unremarkable. Peritoneum: Normal. Vessels: Atherosclerotic calcifications are seen. Abdominal wall: There is a left fat-containing inguinal hernia and right fat and bowel containing inguinal hernia. Bones: Degenerative changes in the visualized spine. IMPRESSION: Cholelithiasis with pericholecystic fluid and gallbladder wall thickening concerning for acute cholecystitis. Correlation with Rojas's sign on clinical exam is recommended.
[2021-10-06] MEDS: SODIUM CHLORIDE 0.9% 1000ML 1,000 ML IV SCH ×2 (12:00→20:40)
[2021-10-06] MEDS ORDERED: HYDROmorphone INJ 1 MG/ML SYRINGE IV PRN (12:38)
[2021-10-06] MEDS ORDERED: KETOROLAC TROMETHAMINE 15 MG/ML VIAL IV ONE ×2 (12:39→20:45)
[2021-10-06] MEDS: RASPBERRY SYRUP 5 ML UDP PO SCH ×3 (13:11→23:53)
[2021-10-06] MEDS: VANCOMYCIN HCL 125 MG/2.5ML SOLN PO SCH ×3 (13:11→23:53)
[2021-10-06] MEDS: INSULIN ASPART PER UNIT SC SCH ×3 (13:14→21:11)
[2021-10-06] MEDS: PIPERACILLIN/TAZOBACTAM 3.375 GM in DEXTROSE 5% 100 ML IV SCH ×2 (13:18→21:48)
[2021-10-06] MEDS: HYDROmorphone INJ 1 MG/ML SYRINGE IV PRN (17:08)
[2021-10-06 18:54] LABS: Appearance Urine Clear (Clear); Bacteria Urine Automated Negative (Negative); Bilirubin Urine Negative (Negative); Blood Urine Negative (Negative); Cast Urine Automated 0 /lpf (0-5); Color Urine Yellow; Epithelial Cell Urine Auto 20-30 /lpf (0-5); Glucose Urine UA Negative (Negative); Ketones Urine Trace (Negative); Leukocyte Esterase Urine Negative (Negative); Nitrite Urine Negative (Negative); RBC Urine Automated 0-4 /hpf (0-4); Specific Gravity Urine > 1.045 (1.000-1.030); Urobilinogen Urine Negative (Negative); pH Urine 7.5 (4.5-7.5)
[2021-10-06 19:05] LABS: Protein Urine Trace (Negative)
[2021-10-06] MEDS: INSULIN GLARGINE SOLOSTAR 100 UNITS/ML 3 ML PEN SC SCH (21:11)
[2021-10-06] MEDS: LATANOPROST 0.005% OP SOLN 2.5 ML BTL OP SCH (21:12)
[2021-10-06] MEDS: ROSUVASTATIN CALCIUM 20 MG TAB PO SCH (21:12)
[2021-10-06] MEDS: SERTRALINE HCL 50 MG TABLET PO SCH (21:13)
[2021-10-06] MEDS: PANTOprazole 40 MG TAB PO SCH (21:13)
[2021-10-06] MEDS: GABAPENTIN 600 MG TAB PO SCH (21:14)
[2021-10-06] MEDS: TAMSULOSIN HCL 0.4 MG CAP PO SCH (21:14)
[2021-10-06] MEDS ORDERED: Nursing to Pharmacy Communication SCH (23:30)
[2021-10-07] MEDS: HYDROmorphone INJ 1 MG/ML SYRINGE IV PRN ×4 (04:33→22:08)
[2021-10-07] MEDS: PIPERACILLIN/TAZOBACTAM 3.375 GM in DEXTROSE 5% 100 ML IV SCH ×3 (05:57→21:24)
[2021-10-07] MEDS: VANCOMYCIN HCL 125 MG/2.5ML SOLN PO SCH ×3 (06:00→18:14)
[2021-10-07] MEDS: RASPBERRY SYRUP 5 ML UDP PO SCH ×3 (06:00→18:14)
[2021-10-07 06:05] LABS: Hematocrit (blood only) 41.4 % (42-52); Hemoglobin 13.9 g/dL (14.0-18.0); Mean Corpuscular Hemoglobin 30.9 pg (25-34); Mean Corpuscular Hgb Conc 33.6 g/dL (32-36); Platelet Count 107 K/uL (130-400); RDW Coefficient of Variation 14.8 % (11.5-14.5); RDW Standard Deviation 50.1 fL (36.4-46.3); White Blood Count 9.26 K/uL (4.8-10.8)
[2021-10-07] MEDS: INSULIN ASPART PER UNIT SC SCH ×5 (06:08→21:16)
[2021-10-07 06:20] LABS: Albumin Globulin Ratio 1.3 (0.9-2); BUN Creatinine Ratio 21.2 (10-20); Bilirubin,Total 1.1 mg/dl (0.2-1.0); Calcium 8.3 mg/dl (8.5-10.1); Creatinine Clr Calc Pharmacy 82.4 ml/min; Est GFR (African American) 98.8 ml/min; Est GFR (Non-African American) 85.2 ml/min; Globulin 3.1 gm/dl (2.5-4.0); Potassium 4.2 mmol/L (3.5-5.1); Total Protein 7.1 gm/dl (6.0-8.3)
[2021-10-07] MEDS: SODIUM CHLORIDE 0.9% 1000ML 1,000 ML IV SCH ×2 (06:37→19:44)
--- NOTE | 2021-10-07 07:15 | Anesthesiology Consultation ---
Date of Service October 07, 2021 Assessment & Plan (1) Encounter for pre-operative examination: Chart Review Chart Review: Acceptable Risk for Surgery and Patient NOT seen in Pre Admission Testing Consults Requested none History Surgery Operation Date: 10/07/21 07:30 Proposed Procedures p Laparoscopic Cholecystectomy - Jean Claude Givens MD Height/Weight Height: 6 ft Weight: 86.5 kg Allergies Allergy/AdvReac Type Severity Reaction Status Date / Time No Known Allergies Allergy Verified 03/30/21 12:45 Medications Home Medications Medication Instructions Recorded Confirmed Last Taken gabapentin 300 mg capsule 600 mg PO BID 12/29/17 10/06/21 03/13/21 20:30 magnesium oxide 400 mg (241.3 mg 400 mg PO QAM 12/29/17 10/06/21 03/13/21 09:00 magnesium) tablet (MgO) metformin 1,000 mg tablet 1,000 mg PO BIDM 12/29/17 10/06/21 03/12/21 09:00 multivit with minerals-iron 18 1 tab PO QA 12/29/17 10/06/21 03/13/21 09:00 mg-folic ac 400 mcg-vit K 25 mcg tablet (Multi-Day Plus Minerals) pantoprazole 40 mg tablet,delayed 40 mg PO BID 12/29/17 10/06/21 03/13/21 20:30 release (Protonix) sertraline 50 mg tablet 50 mg PO 12/29/17 10/06/21 03/13/21 20:30 tamsulosin 0.4 mg capsule 0.4 mg PO QPM 12/29/17 10/06/21 03/13/21 20:30 insulin glargine 100 unit/mL 15 unit SUBCUT 07/01/19 10/06/21 03/13/21 20:30 subcutaneous solution latanoprost 0.005 % eye drops 1 drp OPHTHALMIC (EYE) 07/01/19 10/06/21 03/13/21 20:30 lisinopril 5 mg tablet 5 mg PO QAM 07/01/19 10/06/21 03/13/21 09:00 rosuvastatin 40 mg tablet 40 mg PO 01/17/21 10/06/21 03/13/21 20:30 fluticasone propionate 50 2 spray INTRANASAL Q12H PRN 02/19/21 10/06/21 Unknown mcg/actuation nasal spray,suspension ferrous sulfate 325 mg (65 mg 325 mg PO QAM 03/12/21 10/06/21 03/13/21 09:00 iron) tablet (iron) docusate sodium 100 mg capsule 100 mg PO BID PRN 03/14/21 10/06/21 Unknown (Colace) cyanocobalamin (vitamin B-12) 100 100 mcg PO DAILY 10/06/21 10/06/21 Unknown mcg tablet (Vitamin B-12) fluticasone 250 mcg-salmeterol 50 1 inh INHALATION BID 10/06/21 10/06/21 Unknown mcg/dose blistr powdr for inhalation metoprolol succinate 25 mg 12.5 mg PO DAILY 10/06/21 10/06/21 Unknown tablet,extended release 24 hr Active Medications Generic Name Dose Route Start Last Admin Trade Name Freq PRN Reason Stop Dose Admin Gabapentin 600 mg 10/06/21 21:00 10/06/21 21:14 Gabapentin 600 Mg Tab PO 11/05/21 20:59 600 mg BID EVA Administration Hydromorphone HCl 0.5 - 1 mg 10/06/21 12:41 10/07/21 04:33 Hydromorphone Inj 1 Mg/Ml Syringe IV 10/20/21 12:37 1 mg Q4 PRN Administration Severe Pain Piperacillin Sod/Tazobactam 115 mls @ 28.75 mls/hr 10/06/21 14:00 10/07/21 05:57 Sod 3.375 gm/ Dextrose IV 10/16/21 13:59 28.8 mls/hr Q8H EVA Administration Protocol Sodium Chloride 1,000 mls @ 100 mls/hr 10/06/21 12:00 10/07/21 06:37 Nss 1000ml IV 11/05/21 11:59 100 mls/hr .Q10H EVA Administration Insulin Aspart 0 units 10/07/21 00:00 10/07/21 06:08 Insulin Aspart Per Unit SC 11/06/21 00:00 2 units Q6 EVA Administration Insulin Glargine 8 units 10/06/21 21:00 10/06/21 21:11 Insulin Glargine Solostar 100 Units/Ml 3 Ml Pen SC 11/05/21 20:59 8 units HS EVA Administration Latanoprost 1 drops 10/06/21 21:00 10/06/21 21:12 Latanoprost 0.005% Op Soln 2.5 Ml Btl OP 11/05/21 20:59 1 drops HS EVA Administration Pantoprazole Sodium 40 mg 10/06/21 21:00 10/06/21 21:13 Pantoprazole 40 Mg Tab PO 11/05/21 20:59 40 mg BID EVA Administration Raspberry 5 ml 10/06/21 12:00 10/07/21 06:00 Raspberry Syrup 5 Ml Udp PO 10/16/21 11:59 5 ml Q6 EVA Administration Rosuvastatin Calcium 40 mg 10/06/21 21:00 10/06/21 21:12 Rosuvastatin Calcium 20 Mg Tab PO 11/05/21 20:59 40 mg HS EVA Administration Sertraline HCl 50 mg 10/06/21 21:00 10/06/21 21:13 Sertraline Hcl 50 Mg Tablet PO 11/05/21 20:59 50 mg HS EVA Administration Tamsulosin HCl 0.4 mg 10/06/21 21:00 10/06/21 21:14 Tamsulosin Hcl 0.4 Mg Cap PO 11/05/21 20:59 0.4 mg QPM EVA Administration Vancomycin HCl 125 mg 10/06/21 12:00 10/07/21 06:00 Vancomycin Hcl 125 Mg/2.5ml Soln PO 10/16/21 11:59 125 mg Q6 EVA Administration NPO Date Last Intake of Fluids: 10/06/21 Time Last Intake of Fluids: 23:30 Date Last Intake of Solids: 10/06/21 Time Last Intake of Solids: 18:00 Past Medical History Medical History Acute cholecystitis due to biliary calculus Alberto's esophagus History of cancer with in 1 segment s/p cryoablation BPH (benign prostatic hyperplasia) C. 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 CLICKS-NO LOCKING Past Family History Family History Sister Family history of diabetes mellitus Brother Family history of diabetes mellitus Uncle Family history of diabetes mellitus Father Family history of diabetes mellitus Past Surgical History Surgical History History of back surgery History of cardiac cath Remote history of, mild, nonobstructive CAD noted History of carpal tunnel release RIGHT History of cataract surgery R/L History of colonoscopy MULTIPLE-LAST ONE 12/2020 History of cystoscopy with stent History of esophagogastroduodenoscopy (EGD) MULTIPLE History of total knee arthroplasty Bilateral Status post total shoulder arthroplasty R/L Social History Smoking Status: Former smoker Hx Alcohol Use: Yes Alcohol type: beer alcohol intake frequency: holidays/special occasions only Hx Substance Use: No substance use type: does not use Physical Exam Vital Signs Last Vital Signs Temp 98.1 F 10/06/21 22:48 Pulse 84 10/06/21 22:48 Resp 18 10/06/21 22:48 BP 121/58 L 10/06/21 22:48 Pulse Ox 91 10/06/21 22:48 Testing Laboratory Results 10/07/21 05:45 10/07/21 05:45 Urine Color Yellow 10/06/21 Unknown Urine Appearance Clear (Clear) 10/06/21 Unknown Urine pH 7.5 (4.5-7.5) 10/06/21 Unknown Ur Specific [place] > 1.045 (1.000-1.030) H 10/06/21 Unknown Urine Protein Trace (Negative) H 10/06/21 Unknown Urine Glucose (UA) Negative (Negative) 10/06/21 Unknown Urine Ketones Trace (Negative) H 10/06/21 Unknown Urine Nitrite Negative (Negative) 10/06/21 Unknown Ur Leukocyte Esterase Negative (Negative) 10/06/21 Unknown Urine WBC (Auto) 1-5 /hpf (0-5) 10/06/21 Unknown Urine RBC (Auto) 0-4 /hpf (0-4) 10/06/21 Unknown U Hyaline Cast (Auto) 0 /lpf (0-5) 10/06/21 Unknown U Epithel Cells (Auto) 20-30 /lpf (0-5) H 10/06/21 Unknown Urine Bacteria (Auto) Negative (Negative) 10/06/21 Unknown 10/07/21 10/06/21 10/06/21 06:02 23:57 20:43 POC Glucose 185 H 140 H 152 H Electrocardiogram Date: 10/06/21 Findings: + NSR @ Echocardiogram Date: 01/02/21 EF: 60-64 Other Findings: + diastolic dysfunction (G1) Valvular Disease: + no significant valvular disease
[2021-10-07] MEDS: METOPROLOL SUCC 25MG EXT REL TAB PO SCH (07:30)
--- NOTE | 2021-10-07 08:21 | History & Physical Bridge Note ---
Date of Service October 07, 2021 History & Physical Bridge Note I have examined the patient, reviewed the History & Physical and in the interval since the performance of the History & Physical I have noted the following changes of clinical significance: no changes noted
[2021-10-07] MEDS ORDERED: LIDOCAINE 1% LOCAL 20 ML VIAL ONE (09:09)
[2021-10-07] MEDS ORDERED: fentaNYL citrate 100 MCG/2 ML VIAL ONE ×2 (09:34→11:58)
[2021-10-07] MEDS ORDERED: LIDOCAINE 2% 2 ML VIAL/AMP(20MG/ML) INFIL ONE (11:23)
[2021-10-07] MEDS ORDERED: GLYCOPYRROLATE 0.2 MG/ML VIAL ONE ×2 (11:23→12:29)
[2021-10-07] MEDS ORDERED: ROCURONIUM BROMIDE 10 MG/ML 5 ML VIAL IV ONE (11:23)
[2021-10-07] MEDS ORDERED: PROPOFOL IV EMULSION 10 MG/ML 20 ML VIAL IV ONE (11:23)
[2021-10-07] MEDS ORDERED: NEOSTIGMINE METHYLSULFATE 1 MG/ML 10ML VIAL ONE (11:23)
[2021-10-07] MEDS ORDERED: ONDANSETRON INJ 2 MG/ML 2 ML VIAL ONE (11:23)
[2021-10-07] MEDS ORDERED: ATROPINE SULFATE 0.1 MG/ML 10ML SYR IV PRN (11:26)
[2021-10-07] MEDS ORDERED: ePHEDrine sulfate 50 MG/ML AMP IV PRN (11:26)
[2021-10-07] MEDS ORDERED: ONDANSETRON INJ 2 MG/ML 2 ML VIAL IV PRN (11:26)
[2021-10-07] MEDS ORDERED: EPINEPHrine INJ 1 MG/ML AMP ONE (11:40)
[2021-10-07] MEDS ORDERED: BUPIVACAINE 0.5 % 5 MG/1 ML MPF 30ML VIAL ONE (11:41)
[2021-10-07] MEDS ORDERED: ePHEDrine sulfate 50 MG/ML AMP ONE (11:59)
[2021-10-07] MEDS ORDERED: PHENYLEPHRINE HCL 10 MG/ML VIAL ONE (11:59)
[2021-10-07] MEDS ORDERED: ESMOLOL HCL INJ 10 MG/ML 10ML VIAL IV ONE (12:05)
--- NOTE | 2021-10-07 12:17 | Electrocardiogram Report ---
Test Reason : Blood Pressure : / mmHG Vent. Rate : 080 BPM Atrial Rate : 080 BPM P-R Int : 160 ms QRS Dur : 082 ms QT Int : 362 ms P-R-T Axes : 059 009 061 degrees QTc Int : 417 ms Poor data quality, interpretation may be adversely affected Normal sinus rhythm Normal ECG When compared with ECG of 18-JAN-2021 05:33, Criteria for Anteroseptal infarct are no longer Present No significant change was found Confirmed by Paulie Escobar ([id number]) on 10/07/2021 12:17:21 PM Referred By: REFERRED SELF Confirmed By:Mauro Escobar
--- NOTE | 2021-10-07 12:36 | Post Operative Brief Note ---
Immediate Post Op Note v1 Date of Surgery October 07, 2021 Pre & Post Diagnosis Operation Date: 10/07/21 07:30 Pre-Op Diagnosis: Acute cholecystitis Post-Op Diagnosis: Acute cholecystitis I identified the patient and participated in the time-out.: Yes Procedure Operation Date: 10/07/21 07:30 Actual Procedures p Laparoscopic Cholecystectomy(Not Applicable) - Jean Claude Givens MD Surgeon Jean Claude Givens MD Territory Outside Sales Manager none Estimated Blood Loss 40 Findings Consistent with Post-Op Diagnosis
[2021-10-07] MEDS: fentaNYL citrate 100 MCG/2 ML VIAL IV PRN ×3 (13:04→13:14)
[2021-10-07] MEDS ORDERED: KETOROLAC TROMETHAMINE 15 MG/ML VIAL IV ONE (13:25)
[2021-10-07] MEDS ORDERED: HYDROmorphone INJ 1 MG/ML SYRINGE IV PRN (13:25)
[2021-10-07] MEDS ORDERED: KETOROLAC 30 MG/ML VIAL ONE (13:26)
--- NOTE | 2021-10-07 13:57 | Anesthesiology Progress Note ---
Date of Service October 07, 2021 Anesthesia Post Procedure Vital Signs Vital Signs: Temp Pulse Pulse Resp BP BP Pulse Ox 10/07/21 13:50 97.9 F 89 17 101/58 L 91 10/07/21 13:40 92 H 17 112/64 90 10/07/21 13:30 93 H 18 122/72 92 10/07/21 13:20 94 H 18 126/54 L 94 10/07/21 13:10 90 18 112/67 94 10/07/21 13:00 94 H 18 122/68 94 10/07/21 12:50 94 H 18 137/64 91 10/07/21 12:43 98.4 F 99 H 16 129/79 91 10/07/21 07:26 99.0 F 88 17 136/71 90 10/06/21 22:48 98.1 F 84 18 121/58 L 91 10/06/21 15:11 97.5 F L 75 17 125/65 94 Pain Intensity Medial Abdomen: Pain Intensity: 6 Transfer of Care Handoff Completed per policy Notes Mental Status: alert / awake / arousable and participated in evaluation Patient Amnestic to Procedure: Yes Nausea / Vomiting: adequately controlled Pain: adequately controlled Airway Patency, RR, SpO2: stable & adequate (4L NC improving with incentive spirometry ) BP & HR: stable & adequate Hydration State: stable & adequate Anesthetic Complications: no major complications apparent and Pt Satisfied with anesthetic care
--- NOTE | 2021-10-07 14:10 | Hospitalist Progress Note ---
Date of Service October 07, 2021 Assessment & Plan (1) Cholecystitis, acute: Plan: In the ED, CT ABD/pelvis showing cholelithiasis with pericholecystic fluid and gallbladder wall thickening concerning for acute cholecystitis. WBC 10.5K->9.26, afebrile. Lactate 2.7 --> 2.3-> 1.9 Continued on zosyn since ED presentation S/p lap julio today by Dr Givens Pain control, diet as tolerated, further management per surgery (2) C. difficile diarrhea: Plan: C. difficile toxin and gene positive History of C. difficile in 2018 Patient currently does not report significant diarrhea continue po vanco Stool also positive for EPEC --supportive care (3) CAD (coronary artery disease): Plan: Remote history of cardiac cath showing mild, nonobstructive disease Stress test December 2020 negative for ischemia Appears stable, no reports of chest pain, EKG without acute ST changes Continue beta-cesario and statin (4) HTN (hypertension): Plan: Continue home doses of metoprolol and lisinopril with hold parameters (5) Diabetes mellitus, type 2: Plan: Hgb A1c 7.7 05/2021 Hold metformin, Lantus and NovoLog per protocol while hospitalized (6) Alberto's esophagus: Plan: History of cancer within 1 segment of the Alberto's s/p cryoablation Recent EGD 08/2021 with negative biopsies Continue PPI (7) Chronic obstructive pulmonary disease: Plan: No signs of acute exacerbation Continue home inhalers (8) BPH (benign prostatic hyperplasia): Plan: Continue tamsulosin (9) Depression with anxiety: Plan: Continue home med (10) DVT prophylaxis: Plan: sc heparin Admission and Anticipated Discharge Date Admission Date: October 06, 2021 Subjective Seen this morning prior to OR. Complains of pain- states pain has migrated up to RUQ now. Also hungry and asking when he can eat. No N/V. No fever. Physical Exam Physical Exam: General: Lying comfortably in bed, not in acute distress, on room air HEENT: EOMI, IKE, MMM Chest: Clear breath sounds bilaterally, no wheezes or crackles CVS: Regular rate and rhythm, normal heart sounds, no murmur Abdomen: Soft, RUQ tenderness, not distended, normal bowel sounds Neuro: Awake, alert, oriented, conversing well, non focal Extremities: No cyanosis, clubbing or edema Results & Data Results & Data ([facility]) Vital Signs (Past 12 Hours) Vital Signs Temp Pulse Pulse Resp BP BP Pulse Ox 10/07/21 13:50 36.6 C 89 17 101/58 L 91 10/07/21 13:40 92 H 17 112/64 90 10/07/21 13:30 93 H 18 122/72 92 10/07/21 13:20 94 H 18 126/54 L 94 10/07/21 13:10 90 18 112/67 94 10/07/21 13:00 94 H 18 122/68 94 10/07/21 12:50 94 H 18 137/64 91 10/07/21 12:43 36.9 C 99 H 16 129/79 91 10/07/21 07:26 37.2 C 88 17 136/71 90 Laboratory Results Short CBC 10/07/21 Range/Units 05:45 WBC 9.26 (4.8-10.8) K/uL Hgb 13.9 L (14.0-18.0) g/dL Hct 41.4 L (42-52) % Plt Count 107 L (130-400) K/uL BMP 10/07/21 05:45 Sodium 134 L Potassium 4.2 Chloride 107 Carbon Dioxide 15 L BUN 18 Creatinine 0.85 Glucose 165 H Calcium 8.3 L Liver Function 10/07/21 Range/Units 05:45 Total Bilirubin 1.1 H (0.2-1.0) mg/dl AST 27 (13-39) U/L ALT 16 (7-52) U/L Alkaline Phosphatase 56 (34-104) U/L Albumin 4.0 (3.4-5.0) gm/dl Urine 10/06/21 Range/Units Unknown Urine Color Yellow Urine Appearance Clear (Clear) Urine pH 7.5 (4.5-7.5) Ur Specific [place] > 1.045 H (1.000-1.030) Urine Protein Trace H (Negative) Urine Glucose (UA) Negative (Negative) Medications Administered Current Inpatient Medications Acetaminophen (Acetaminophen 325 Mg Tab) 650 mg PO Q4H PRN PRN Reason: pain/fever Stop: 11/05/21 10:45 Atropine Sulfate (Atropine Sulfate 0.1 Mg/Ml 10ml Syr) 0.5 mg IV Q1M PRN PRN Reason: PACU Use-HR<40 &/or Bradycardi Stop: 10/07/21 19:26 Dextrose (Dextrose 50% 50 Ml Syringe) 25 - 50 ml IV UD PRN; Protocol PRN Reason: Hypoglycemia Protocol Stop: 11/05/21 10:45 Ephedrine Sulfate (Ephedrine Sulfate 50 Mg/Ml Amp) 5 mg IV Q5M PRN PRN Reason: PACU Use Only-SBP<90 mmHg Stop: 10/07/21 19:26 Fentanyl Citrate (Fentanyl Citrate 100 Mcg/2 Ml Vial) 25 mcg IV Q5M PRN PRN Reason: PACU Use Only-Pain Stop: 10/07/21 19:26 Last Admin: 10/07/21 13:14 Dose: 25 mcg Documented by: Ferrous Sulfate (Ferrous Sulfate 325 Mg Tab) 325 mg PO QAM EVA Stop: 11/06/21 08:59 Fluticasone/Vilanterol (Fluticasone/Vilanterol 200/25mcg 14 Puffs/Inhaler) 1 puffs INH DAILY EVA Stop: 11/06/21 08:59 Gabapentin (Gabapentin 600 Mg Tab) 600 mg PO BID EVA Stop: 11/05/21 20:59 Last Admin: 10/06/21 21:14 Dose: 600 mg Documented by: Glucagon (Glucagon For Inj 1 Mg Vial) 1 mg SQ UD PRN; Protocol PRN Reason: Hypoglycemia Protocol Stop: 11/05/21 10:45 Glucose (Glucose 10 Tabs/Tube) 4 - 8 tabs PO UD PRN; Protocol PRN Reason: Hypoglycemia Protocol Stop: 11/05/21 10:45 Glucose (Glucose 40% Gel 15 Gm Tube) 15 - 30 gm PO UD PRN; Protocol PRN Reason: Hypoglycemia Protocol Stop: 11/05/21 10:45 Hydromorphone HCl (Hydromorphone Inj 1 Mg/Ml Syringe) 0.5 - 1 mg IV Q4 PRN PRN Reason: Severe Pain Stop: 10/20/21 12:37 Last Admin: 10/07/21 08:13 Dose: 1 mg Documented by: Hydromorphone HCl (Hydromorphone Inj 1 Mg/Ml Syringe) 0.25 mg IV Q5M PRN PRN Reason: PACU Use Only-Pain Stop: 10/07/21 21:26 Piperacillin Sod/Tazobactam (Sod 3.375 gm/ Dextrose) 115 mls @ 28.75 mls/hr IV Q8H [facility]; Protocol Stop: 10/16/21 13:59 Last Infusion: 10/07/21 10:08 Dose: Infused Documented by: Sodium Chloride (Nss 1000ml) 1,000 mls @ 100 mls/hr IV .Q10H [facility] Stop: 11/05/21 11:59 Last Infusion: 10/07/21 11:00 Dose: 0 mls/hr Documented by: Insulin Aspart (Insulin Aspart Per Unit) 0 units SC Q6 [facility] Stop: 11/06/21 00:00 Last Admin: 10/07/21 06:08 Dose: 2 units Documented by: Insulin Glargine (Insulin Glargine Solostar 100 Units/Ml 3 Ml Pen) [address] [facility] Stop: 11/05/21 20:59 Last Admin: 10/06/21 21:11 Dose: 8 units Documented by: Latanoprost (Latanoprost 0.005% Op Soln 2.5 Ml Btl) [address] [facility] Stop: 11/05/21 20:59 Last Admin: 10/06/21 21:12 Dose: 1 drops Documented by: Lisinopril (Lisinopril 5 Mg Tab) 5 mg PO QAM [facility] Stop: 11/06/21 08:59 Magnesium Oxide (Magnesium Oxide 400 Mg Tab) 400 mg PO QAM [facility] Stop: 11/06/21 08:59 Metoprolol Succinate (Metoprolol Succ 25mg Ext Rel Tab) 12.5 mg PO DAILY [facility] Stop: 11/06/21 08:59 Last Admin: 10/07/21 07:30 Dose: 12.5 mg Documented by: Miscellaneous (Carbohydrates For Hypoglycemia ) 15 - 30 gm PO UD PRN PRN Reason: Hypoglycemia Protocol Stop: 11/05/21 10:45 Ondansetron HCl (Ondansetron Inj 2 Mg/Ml 2 Ml Vial) 4 mg IV Q6H PRN PRN Reason: Nausea Stop: 11/05/21 10:45 Ondansetron HCl (Ondansetron Inj 2 Mg/Ml 2 Ml Vial) 4 mg IV ONCE PRN PRN Reason: PACU Use Only-Nausea/Vomiting Stop: 10/07/21 19:27 Pantoprazole Sodium (Pantoprazole 40 Mg Tab) 40 mg PO BID EVA Stop: 11/05/21 20:59 Last Admin: 10/06/21 21:13 Dose: 40 mg Documented by: Raspberry (Raspberry Syrup 5 Ml Udp) 5 ml PO Q6 EVA Stop: 10/16/21 11:59 Last Admin: 10/07/21 06:00 Dose: 5 ml Documented by: Rosuvastatin Calcium (Rosuvastatin Calcium 20 Mg Tab) 40 mg PO HS EVA Stop: 11/05/21 20:59 Last Admin: 10/06/21 21:12 Dose: 40 mg Documented by: Sertraline HCl (Sertraline Hcl 50 Mg Tablet) 50 mg PO EVA Stop: 11/05/21 20:59 Last Admin: 10/06/21 21:13 Dose: 50 mg Documented by: Tamsulosin HCl (Tamsulosin Hcl 0.4 Mg Cap) 0.4 mg PO QPM EVA Stop: 11/05/21 20:59 Last Admin: 10/06/21 21:14 Dose: 0.4 mg Documented by: Vancomycin HCl (Vancomycin Hcl 125 Mg/2.5ml Soln) 125 mg PO Q6 EVA Stop: 10/16/21 11:59 Last Admin: 10/07/21 06:00 Dose: 125 mg Documented by:
[2021-10-07] MEDS ORDERED: oxyCODONE/ACETAMINOPHEN 5mg/325mg TAB PO PRN (14:31)
[2021-10-07] MEDS ORDERED: MoRPHine SULFATE 4 MG/ML 1 ML CARP\\VIAL IV PRN (14:31)
[2021-10-07] MEDS ORDERED: MoRPHine SULFATE 2 MG/ML CARP IV PRN (14:31)
[2021-10-07] MEDS: FLUTICASONE/VILANTEROL 200/25MCG 14 PUFFS/INHALER INH SCH (14:36)
[2021-10-07] MEDS: FERROUS SULFATE 325 MG TAB PO SCH (15:03)
[2021-10-07] MEDS: PANTOprazole 40 MG TAB PO SCH ×2 (15:03→21:16)
[2021-10-07] MEDS: lisinopril 5 MG TAB PO SCH (15:04)
[2021-10-07] MEDS: GABAPENTIN 600 MG TAB PO SCH ×2 (15:04→21:16)
[2021-10-07] MEDS: MAGNESIUM OXIDE 400 MG TAB PO SCH (15:04)
[2021-10-07] MEDS ORDERED: Nursing to Pharmacy Communication SCH (15:30)
[2021-10-07] MEDS: LATANOPROST 0.005% OP SOLN 2.5 ML BTL OP SCH (21:16)
[2021-10-07] MEDS: ROSUVASTATIN CALCIUM 20 MG TAB PO SCH (21:16)
[2021-10-07] MEDS: TAMSULOSIN HCL 0.4 MG CAP PO SCH (21:16)
[2021-10-07] MEDS: SERTRALINE HCL 50 MG TABLET PO SCH (21:16)
[2021-10-07] MEDS: INSULIN GLARGINE SOLOSTAR 100 UNITS/ML 3 ML PEN SC SCH (21:17)
--- NOTE | 2021-10-07 23:36 | Operative Report (OR) ---
DATE OF SERVICE: 10/07/2021. PREOPERATIVE DIAGNOSIS: Acute cholecystitis. POSTOPERATIVE DIAGNOSIS: Acute gangrenous cholecystitis. PROCEDURE PERFORMED: Laparoscopic cholecystectomy. SURGEON: Jean Claude Givens MD ANESTHESIA: General endotracheal with 0.5% Marcaine with epinephrine local. ESTIMATED BLOOD LOSS: 40 mL. DRAINS: None. COMPLICATIONS: None. SPECIMENS: Gallbladder sent for pathologic evaluation. INDICATIONS FOR PROCEDURE: This is a 76-year-old male who came in with acute cholecystitis. He was placed on IV fluids, IV antibiotics, and will be taken to the OR for laparoscopic cholecystectomy. Levon lester understands the risks in detail. DESCRIPTION OF PROCEDURE: The patient was taken to the OR and underwent excellent general endotrache al anesthesia. His abdomen was prepped and draped in normal sterile fashion. A transverse supraumbi lical incision was made. Dissection was taken down to identify his anterior fascia. Two Vicryls wer e placed on either side of the midline. The midline was incised sharply. Peritoneal cavity was ente red bluntly and a Kris trocar was then inserted. Good pneumoperitoneum was then achieved to 15 mmH g pressure. The patient was placed in head up and rolled to the left. An 11 subxiphoid and two 5 la teral ports were placed in normal fashion. He had some omental adhesions to the gallbladder, which w as obviously inflamed and near gangrenous. The adhesions were taken down. The gallbladder was aspir ated. This facilitated grasping the fundus, which was retracted superiorly. The neck was then ident ified and dissected away from some dense adhesions. Electrocautery was then used to remove the perit gregg attachments. The cystic duct and cystic artery were identified. There was also a cystic vein, which was clipped and transected. Once the artery and the duct were identified, a medial and latera l window was created between the gallbladder and gallbladder fossa, showing the structures going stra ight to the gallbladder. Once this critical view was seen, three clips were placed distally on the c ystic duct and one proximally and the cystic duct was transected. Two clips were then placed proxima lly in the cystic artery, one distally on the cystic artery, and cystic artery was transected. Elect rocautery hook was then used to remove the gallbladder from the gallbladder fossa. The gallbladder w as then brought out with an Endobag through the supraumbilical incision. The gallbladder was sent fo r pathologic evaluation and the pneumoperitoneum was reestablished. The abdomen was then irrigated o ut, suctioned clear. There was about 40 mL of blood loss. There was some raw areas on the gallbladd er fossa, which were then cauterized and then some Surgicel was placed to help facilitate soft bleedi ng. At the end of the procedure, there was no further bleeding. The ports were removed. Pneumoperi toneum was decompressed. Vicryl was used to close the fascial defect. Vicryl was used to close the skin. A 0.5% Marcaine with epinephrine local was used to create a local field block. Benzoin and St don-Strips were used to reinforce the incision. Sterile dressings were applied. The patient tolerat ed the procedure without any complications, was sent to the postoperative recovery for a period of ob servation and will be discharged up to his room once he meets criteria. Job ID: [id number]
[2021-10-08] MEDS: RASPBERRY SYRUP 5 ML UDP PO SCH ×5 (00:52→23:16)
[2021-10-08] MEDS: VANCOMYCIN HCL 125 MG/2.5ML SOLN PO SCH ×5 (00:52→23:15)
[2021-10-08] MEDS: SODIUM CHLORIDE 0.9% 1000ML 1,000 ML IV SCH ×3 (03:50→23:16)
[2021-10-08] MEDS: PIPERACILLIN/TAZOBACTAM 3.375 GM in DEXTROSE 5% 100 ML IV SCH ×3 (06:09→21:31)
[2021-10-08 06:11] LABS: Hematocrit (blood only) 36.6 % (42-52); Hemoglobin 12.8 g/dL (14.0-18.0); Mean Corpuscular Hemoglobin 32.5 pg (25-34); Mean Corpuscular Volume 92.9 fL (80-100); Mean Platelet Volume 10.3 fL (7.4-10.4); Platelet Count 137 K/uL (130-400); RDW Coefficient of Variation 14.6 % (11.5-14.5); RDW Standard Deviation 50.1 fL (36.4-46.3); Red Blood Count 3.94 M/uL (4.7-6.1); White Blood Count 5.47 K/uL (4.8-10.8)
[2021-10-08 06:56] LABS: BUN Creatinine Ratio 21.2 (10-20); Calcium 7.9 mg/dl (8.5-10.1); Creatinine Clr Calc Pharmacy 51.1 ml/min; Est GFR (African American) 58.1 ml/min; Est GFR (Non-African American) 50.1 ml/min; Magnesium 0.9 mg/dl (1.7-2.4); Phosphorus 3.9 mg/dl (2.5-4.9); Potassium 4.3 mmol/L (3.5-5.1)
[2021-10-08] MEDS: MAGNESIUM SULFATE / D5W 1 GM/100 ML BAG IV SCH ×3 (08:07→12:17)
[2021-10-08] MEDS: FERROUS SULFATE 325 MG TAB PO SCH (08:10)
[2021-10-08] MEDS: FLUTICASONE/VILANTEROL 200/25MCG 14 PUFFS/INHALER INH SCH (08:10)
[2021-10-08] MEDS: GABAPENTIN 600 MG TAB PO SCH ×2 (08:10→21:35)
[2021-10-08] MEDS: PANTOprazole 40 MG TAB PO SCH ×2 (08:10→21:34)
[2021-10-08] MEDS: MAGNESIUM OXIDE 400 MG TAB PO SCH (08:11)
[2021-10-08] MEDS: lisinopril 5 MG TAB PO SCH (08:11)
[2021-10-08] MEDS: METOPROLOL SUCC 25MG EXT REL TAB PO SCH (08:11)
[2021-10-08] MEDS: INSULIN ASPART PER UNIT SC SCH ×4 (09:19→21:15)
[2021-10-08] MEDS: oxyCODONE/ACETAMINOPHEN 5mg/325mg TAB PO PRN ×2 (09:24→21:13)
--- NOTE | 2021-10-08 16:06 | Surgery Progress Note ---
Date of Service October 08, 2021 Assessment & Plan (1) Acute cholecystitis due to biliary calculus: Plan: POD # 1 s/p laparoscopic cholecystectomy for gangrenous cholecystitis Afebrile, no leukocytosis Very lethargic Tolerating clear liquids Passing flatus Plan: May advance to diabetic diet for dinner tonight continue pain management as needed continue current medical management for C. difficile Once more awake needs to be out of bed to chair and ambulate Continue SCDs for DVT prophylaxis Continue incentive spirometer Continue medical management Dr. Hernandez was present during my examination and agrees with above Admission and Anticipated Discharge Date Admission Date: October 06, 2021 Subjective very fatigued and tired minimal abdominal pain tolerating clear liquids per nurse has not had any bowel movements, passing gas Physical Exam Constitutional: cooperative and + lethargic; no acute distress and not ill appearing Neck: normal visual inspection and trachea midline Respiratory: normal respiratory effort; no respiratory distress, no labored breathing and no retractions Gastrointestinal (Abdomen): Inspection/Auscultation: abdomen normal to inspection and + abdominal surgical incision (covered with dry dressings); abdomen not distended Percussion/Palpation: abdomen soft; abdomen nontender, no guarding and abdomen not rigid Skin: no rashes, warm and dry no jaundice Psychiatric: Orientation: alert Results & Data ([facility]) Vital Signs (Past 12 Hours) Vital Signs Temp Pulse Resp BP Pulse Ox 10/08/21 13:00 36.6 C 65 16 97/56 L 91 10/08/21 08:06 36.7 C 90 24 109/62 89 L Laboratory Results 10/08/21 10/08/21 10/08/21 Range/Units 12:13 07:58 05:28 WBC (4.8-10.8) K/uL RBC (4.7-6.1) M/uL Hgb (14.0-18.0) g/dL Hct (42-52) % MCV (80-100) fL MCH (25-34) pg MCHC (32-36) g/dL RDW Std Deviation (36.4-46.3) fL RDW Coeff of Lachelle (11.5-14.5) % Plt Count (130-400) K/uL MPV (7.4-10.4) fL Sodium 132 L (136-145) mmol/L Potassium 4.3 (3.5-5.1) mmol/L Chloride 105 (98-107) mmol/L Carbon Dioxide 21 (21-32) mmol/L Anion Gap 6 (3-11) BUN 29 H (6-23) mg/dl Creatinine 1.37 D (0.6-1.4) mg/dl Est Cr Clr Drug Dosing 51.1 ml/min Est GFR ( Amer) 58.1 ml/min Est GFR (Non-Af Amer) 50.1 ml/min BUN/Creatinine Ratio 21.2 H (10-20) Glucose 174 H (70-99(Fasting)) mg/dl POC Glucose 215 H 189 H (70-99) mg/dl Calcium 7.9 L (8.5-10.1) mg/dl Phosphorus 3.9 (2.5-4.9) mg/dl Magnesium 0.9 L* (1.7-2.4) mg/dl 10/08/21 10/07/21 Range/Units 05:28 20:19 WBC 5.47 (4.8-10.8) K/uL RBC 3.94 L (4.7-6.1) M/uL Hgb 12.8 L (14.0-18.0) g/dL Hct 36.6 L (42-52) % MCV 92.9 (80-100) fL MCH 32.5 (25-34) pg MCHC 35.0 (32-36) g/dL RDW Std Deviation 50.1 H (36.4-46.3) fL RDW Coeff of Lachelle 14.6 H (11.5-14.5) % Plt Count 137 (130-400) K/uL MPV 10.3 (7.4-10.4) fL Sodium (136-145) mmol/L Potassium (3.5-5.1) mmol/L Chloride (98-107) mmol/L Carbon Dioxide (21-32) mmol/L Anion Gap (3-11) BUN (6-23) mg/dl Creatinine (0.6-1.4) mg/dl Est Cr Clr Drug Dosing ml/min Est GFR ( Amer) ml/min Est GFR (Non-Af Amer) ml/min BUN/Creatinine Ratio (10-20) Glucose (70-99(Fasting)) mg/dl POC Glucose 231 H (70-99) mg/dl Calcium (8.5-10.1) mg/dl Phosphorus (2.5-4.9) mg/dl Magnesium (1.7-2.4) mg/dl
--- NOTE | 2021-10-08 20:38 | Hospitalist Progress Note ---
Date of Service October 08, 2021 Assessment & Plan (1) C. difficile diarrhea: (2) Acute cholecystitis due to biliary calculus: Plan: (1) Cholecystitis, acute: Plan: In the ED, CT ABD/pelvis showing cholelithiasis with pericholecystic fluid and gallbladder wall thickening concerning for acute cholecystitis. WBC 10.5K->downtrending, afebrile. Lactate normalized Continued on zosyn since ED presentation 10/06 --> transition to PO ATB harsh. S/p lap julio 10/[address] Givens Pain control, diet as tolerated, further management per surgery (2) C. difficile diarrhea: Plan: C. difficile toxin and gene positive History of C. difficile in 2017 Patient currently does not report significant diarrhea continue po vanco Stool also positive for EPEC --supportive care (3) CAD (coronary artery disease): Plan: Remote history of cardiac cath showing mild, nonobstructive disease Stress test December 2020 negative for ischemia Appears stable, no reports of chest pain, EKG without acute ST changes Continue beta-cesario and statin (4) HTN (hypertension): Plan: Continue home doses of metoprolol and lisinopril with hold parameters (5) Diabetes mellitus, type 2: Plan: Hgb A1c 7.7 05/2021 Hold metformin, Lantus and NovoLog per protocol while hospitalized (6) Alberto's esophagus: Plan: History of cancer within 1 segment of the Alberto's s/p cryoablation Recent EGD 08/2021 with negative biopsies Continue PPI (7) Chronic obstructive pulmonary disease: Plan: No signs of acute exacerbation Continue home inhalers (8) BPH (benign prostatic hyperplasia): Plan: Continue tamsulosin (9) Depression with anxiety: Plan: Continue home med (10) DVT prophylaxis: Plan: sc heparin Admission and Anticipated Discharge Date Admission Date: October 06, 2021 Subjective Patient seen and examined at bedside as a follow-up of cholecystitis status post lap julio, C. difficile diarrhea. Patient was lying in bed, on room air, NAD, on liquid diet, no new acute events overnight. Patient reports belly pain under control with pain medication. Patient reports having bowel movement 2 to 3 days ago, is moving gas postoperatively. Patient denies any headache or dizziness or chest pain or fever. Physical Exam Physical Exam: GENERAL: Alert and oriented x3. NAD, on RA. HEENT: No pallor, no icterus. Pupils equal, round and reactive to light. Oral mucosa moist. NECK: No JVD, no neck masses. HEART: S1 and S2 heard. Regular rate and rhythm. No murmur, no gallop. RESPIRATORY SYSTEM: Normal AP diameter. No accessory muscle use. No wheezing, no crackles. ABDOMEN: Soft, bowel sounds present, +tender, lap julio port w/ dressing, no distention. CENTRAL NERVOUS SYSTEM: No facial droop. Speech is clear. Obeys simple commands. Moves extremities. EXTREMITIES: No edema, no erythema seen. Results & Data Results & Data ([facility]) Vital Signs (Past 12 Hours) Vital Signs Temp Pulse Resp BP Pulse Ox 10/08/21 17:21 36.5 C 96 H 18 148/71 H 92 10/08/21 13:00 36.6 C 65 16 97/56 L 91
[2021-10-08] MEDS: INSULIN GLARGINE SOLOSTAR 100 UNITS/ML 3 ML PEN SC SCH (21:16)
[2021-10-08] MEDS: LATANOPROST 0.005% OP SOLN 2.5 ML BTL OP SCH (21:20)
[2021-10-08] MEDS: TAMSULOSIN HCL 0.4 MG CAP PO SCH (21:34)
[2021-10-08] MEDS: SERTRALINE HCL 50 MG TABLET PO SCH (21:35)
[2021-10-08] MEDS: ROSUVASTATIN CALCIUM 20 MG TAB PO SCH (21:35)
[2021-10-09] MEDS: oxyCODONE/ACETAMINOPHEN 5mg/325mg TAB PO PRN (04:32)
[2021-10-09] MEDS: VANCOMYCIN HCL 125 MG/2.5ML SOLN PO SCH ×4 (05:59→22:53)
[2021-10-09] MEDS: RASPBERRY SYRUP 5 ML UDP PO SCH ×4 (06:00→22:53)
[2021-10-09] MEDS: PIPERACILLIN/TAZOBACTAM 3.375 GM in DEXTROSE 5% 100 ML IV SCH (06:01)
[2021-10-09 06:32] LABS: Hematocrit (blood only) 33.5 % (42-52); Hemoglobin 11.7 g/dL (14.0-18.0); Mean Corpuscular Hemoglobin 32.1 pg (25-34); Mean Corpuscular Hgb Conc 34.9 g/dL (32-36); Mean Platelet Volume 9.7 fL (7.4-10.4); Platelet Count 133 K/uL (130-400); RDW Coefficient of Variation 14.6 % (11.5-14.5); RDW Standard Deviation 49.3 fL (36.4-46.3); Red Blood Count 3.64 M/uL (4.7-6.1); White Blood Count 6.25 K/uL (4.8-10.8)
[2021-10-09 06:59] LABS: BUN Creatinine Ratio 27.6 (10-20); Calcium 7.7 mg/dl (8.5-10.1); Creatinine Clr Calc Pharmacy 66.7 ml/min; Est GFR (African American) 80.1 ml/min; Est GFR (Non-African American) 69.1 ml/min; Magnesium 1.7 mg/dl (1.7-2.4); Phosphorus 2.6 mg/dl (2.5-4.9)
[2021-10-09] MEDS: METOPROLOL SUCC 25MG EXT REL TAB PO SCH (08:45)
[2021-10-09] MEDS: lisinopril 5 MG TAB PO SCH (08:45)
[2021-10-09] MEDS: MAGNESIUM OXIDE 400 MG TAB PO SCH (08:45)
[2021-10-09] MEDS: FERROUS SULFATE 325 MG TAB PO SCH (08:45)
[2021-10-09] MEDS: PANTOprazole 40 MG TAB PO SCH ×2 (08:46→20:07)
[2021-10-09] MEDS: GABAPENTIN 600 MG TAB PO SCH ×2 (08:46→20:08)
[2021-10-09] MEDS: FLUTICASONE/VILANTEROL 200/25MCG 14 PUFFS/INHALER INH SCH (08:46)
[2021-10-09] MEDS: INSULIN ASPART PER UNIT SC SCH ×4 (08:59→21:30)
[2021-10-09] MEDS: SODIUM CHLORIDE 0.9% 1000ML 1,000 ML IV SCH (09:00)
--- NOTE | 2021-10-09 11:07 | XRay Report ---
XR chest 1V portable CLINICAL HISTORY: ? fluid overload COMPARISON STUDY: Chest radiograph February 08, 2021. FINDINGS: Bilateral shoulder arthroplasties are incidentally noted. Elevation the right hemidiaphragm is unchanged. Lung volumes are diminished. There is a small right pleural effusion. No pneumothorax is present. Bibasilar opacities are present. There is pulmonary vascular congestion without overt pul monary edema. IMPRESSION: 1. Elevation of the right hemidiaphragm, similar to CT of October 06, 2021 but new since radiographs of February 08, 2021. 2. Small right pleural effusion. 3. Pulmonary vascular congestion. No evidence for overt pulmonary edema. 4. Mild bibasilar opacities which favor atelectasis. ACT 112: Negative or not required by law. Electronically signed by: Garrett Patel M.D. 10/09/2021 11:04 AM
[2021-10-09] MEDS ORDERED: POLYETHYLENE (MIRALAX) 17 GM PACK PO STA (12:50)
[2021-10-09] MEDS: DOCUSATE SODIUM 100 MG CAP PO SCH ×2 (13:33→20:07)
--- NOTE | 2021-10-09 15:35 | Surgery Progress Note ---
Date of Service October 09, 2021 Assessment & Plan (1) Acute cholecystitis due to biliary calculus: Plan: POD # 2 s/p laparoscopic cholecystectomy for gangrenous cholecystitis Afebrile, no leukocytosis Very lethargic Tolerating diet Passing flatus, no bowel movement since prior to admission even with C. difficile toxin. Abdomen is slightly distended today but soft. Plan: Okay to continue diet as ordered May need speech eval continue pain management as needed, try to limit narcotics Out of bed to chair and ambulation PT OT consults recommended Continue SCDs for DVT prophylaxis Continue incentive spirometer, encourage patient to increase incentive spirometer use due to wheezing and requiring oxygen supplementation. Ordered twice daily Colace and one-time dose of MiraLAX Continue medical management Dr. Hernandez was present during my examination and agrees with above Admission and Anticipated Discharge Date Admission Date: October 06, 2021 Subjective Feeling a lot better today No nausea no vomiting tolerating diet Passing gas but no bowel movement since prior to admission Able to urinate on his own today Feeling weak Per nurse has only been up out of bed to the bedside commode No chest pain or shortness of breath Physical Exam Constitutional: + obese; no acute distress and not ill appearing Neck: normal visual inspection and trachea midline Respiratory: normal respiratory effort and + cough; no respiratory distress, no labored breathing and no retractions Auscultation: + wheezes Gastrointestinal (Abdomen): Inspection/Auscultation: + abdomen distended (Moderate amount of distention), + abdominal surgical incision (Covered with dry dressings and intact) and + hypoactive bowel sounds Percussion/Palpation: + abdomen tender (Tender at incision sites) and abdomen soft; no guarding and abdomen not rigid Skin: no rashes, warm and dry Psychiatric: Orientation: alert and oriented x 3 Results & Data ([facility]) Vital Signs (Past 12 Hours) Vital Signs Temp Pulse Resp BP Pulse Ox 10/09/21 08:56 36.5 C 79 28 H 134/70 94 Laboratory Results 10/09/21 10/09/21 10/09/21 Range/Units 12:01 08:21 05:49 WBC (4.8-10.8) K/uL RBC (4.7-6.1) M/uL Hgb (14.0-18.0) g/dL Hct (42-52) % MCV (80-100) fL MCH (25-34) pg MCHC (32-36) g/dL RDW Std Deviation (36.4-46.3) fL RDW Coeff of Lachelle (11.5-14.5) % Plt Count (130-400) K/uL MPV (7.4-10.4) fL Sodium 130 L (136-145) mmol/L Potassium 4.0 (3.5-5.1) mmol/L Chloride 105 (98-107) mmol/L Carbon Dioxide 19 L (21-32) mmol/L Anion Gap 6 (3-11) BUN 29 H (6-23) mg/dl Creatinine 1.05 D (0.6-1.4) mg/dl Est Cr Clr Drug Dosing 66.7 ml/min Est GFR ( Amer) 80.1 ml/min Est GFR (Non-Af Amer) 69.1 ml/min BUN/Creatinine Ratio 27.6 H (10-20) Glucose 153 H (70-99(Fasting)) mg/dl POC Glucose 162 H 155 H (70-99) mg/dl Calcium 7.7 L (8.5-10.1) mg/dl Phosphorus 2.6 D (2.5-4.9) mg/dl Magnesium 1.7 (1.7-2.4) mg/dl 10/09/21 10/08/21 10/08/21 Range/Units 05:49 20:32 17:07 WBC 6.25 (4.8-10.8) K/uL RBC 3.64 L (4.7-6.1) M/uL Hgb 11.7 L (14.0-18.0) g/dL Hct 33.5 L (42-52) % MCV 92.0 (80-100) fL MCH 32.1 (25-34) pg MCHC 34.9 (32-36) g/dL RDW Std Deviation 49.3 H (36.4-46.3) fL RDW Coeff of Lachelle 14.6 H (11.5-14.5) % Plt Count 133 (130-400) K/uL MPV 9.7 (7.4-10.4) fL Sodium (136-145) mmol/L Potassium (3.5-5.1) mmol/L Chloride (98-107) mmol/L Carbon Dioxide (21-32) mmol/L Anion Gap (3-11) BUN (6-23) mg/dl Creatinine (0.6-1.4) mg/dl Est Cr Clr Drug Dosing ml/min Est GFR ( Amer) ml/min Est GFR (Non-Af Amer) ml/min BUN/Creatinine Ratio (10-20) Glucose (70-99(Fasting)) mg/dl POC Glucose 157 H 98 (70-99) mg/dl Calcium (8.5-10.1) mg/dl Phosphorus (2.5-4.9) mg/dl Magnesium (1.7-2.4) mg/dl
[2021-10-09] MEDS ORDERED: FUROSEMIDE INJ 20 MG/2 ML VIAL IV ONE (17:59)
--- NOTE | 2021-10-09 19:12 | Hospitalist Progress Note ---
Date of Service October 09, 2021 Assessment & Plan (1) C. difficile diarrhea: (2) Acute cholecystitis due to biliary calculus: Plan: (1) Cholecystitis, acute: Plan: In the ED, CT ABD/pelvis showing cholelithiasis with pericholecystic fluid and gallbladder wall thickening concerning for acute cholecystitis. WBC 10.5K->downtrending, afebrile. Lactate normalized Continued on zosyn since ED presentation 10/06 --> dropped 10/09. S/p lap julio 10/[address] Givens Pain control, diet as tolerated, further management per surgery Patient reports difficulty swallowing, speech eval. (2) C. difficile diarrhea: Plan: C. difficile toxin and gene positive History of C. difficile in 2018 Patient currently does not report significant diarrhea continue po vanco Stool also positive for EPEC --supportive care (3) CAD (coronary artery disease): Plan: Remote history of cardiac cath showing mild, nonobstructive disease Stress test December 2020 negative for ischemia Appears stable, no reports of chest pain, EKG without acute ST changes Continue beta-cesario and statin (4) HTN (hypertension): Plan: Continue home doses of metoprolol and lisinopril with hold parameters (5) Diabetes mellitus, type 2: Plan: Hgb A1c 7.7 05/2021 Hold metformin, Lantus and NovoLog per protocol while hospitalized (6) Alberto's esophagus: Plan: History of cancer within 1 segment of the Alberto's s/p cryoablation Recent EGD 08/2021 with negative biopsies Continue PPI (7) Chronic obstructive pulmonary disease: Plan: No signs of acute exacerbation Continue home inhalers (8) BPH (benign prostatic hyperplasia): Plan: Continue tamsulosin (9) Depression with anxiety: Plan: Continue home med (10) DVT prophylaxis: Plan: sc heparin Disposition: PT/OT to [facility] to assist with DC planning. Likely DC in next 1 to 2 days. Admission and Anticipated Discharge Date Admission Date: October 06, 2021 Subjective Patient seen and examined at bedside as a follow-up of cholecystitis status post lap julio, C. difficile diarrhea. Patient was sitting up in bed, on 5L NC O2, NAD, tolerating diet, no new acute events overnight. Has moved bowel after surgery. Patient reports belly pain under control with pain medication. Patient denies any headache or dizziness or chest pain or fever. Patient reports feeling weak. Due to continued oxygen requirement, repeat chest x-ray done, mild pulmonary vascular congestion, giving a small dose of Lasix. Patient motivated to use incentive spirometer every hour. PT/OT consulted for eval and treatment. Patient reports ongoing difficulty swallowing, speech eval. Physical Exam Physical Exam: GENERAL: Alert and oriented x3. NAD, on 5L NC O2 HEENT: No pallor, no icterus. Pupils equal, round and reactive to light. Oral mucosa moist. NECK: No JVD, no neck masses. HEART: S1 and S2 heard. Regular rate and rhythm. No murmur, no gallop. RESPIRATORY SYSTEM: Normal AP diameter. No accessory muscle use. No wheezing, no crackles. ABDOMEN: Soft, bowel sounds present, +tender, lap julio port w/ dressing, no distention. CENTRAL NERVOUS SYSTEM: No facial droop. Speech is clear. Obeys simple commands. Moves extremities. EXTREMITIES: No edema, no erythema seen. Results & Data Results & Data ([facility]) Vital Signs (Past 12 Hours) Vital Signs Temp Pulse Resp BP Pulse Ox 10/09/21 08:56 36.5 C 79 28 H 134/70 94
[2021-10-09] MEDS: SERTRALINE HCL 50 MG TABLET PO SCH (20:07)
[2021-10-09] MEDS: ROSUVASTATIN CALCIUM 20 MG TAB PO SCH (20:08)
[2021-10-09] MEDS: LATANOPROST 0.005% OP SOLN 2.5 ML BTL OP SCH (20:09)
[2021-10-09] MEDS: TAMSULOSIN HCL 0.4 MG CAP PO SCH (20:09)
[2021-10-09] MEDS: INSULIN GLARGINE SOLOSTAR 100 UNITS/ML 3 ML PEN SC SCH (21:30)
[2021-10-09] MEDS ORDERED: guaiFENesin SUGAR FREE 200 MG/10 ML UDC PO PRN (21:42)
[2021-10-10] MEDS: VANCOMYCIN HCL 125 MG/2.5ML SOLN PO SCH ×3 (05:32→17:48)
[2021-10-10] MEDS: RASPBERRY SYRUP 5 ML UDP PO SCH ×3 (05:32→17:48)
[2021-10-10] MEDS: oxyCODONE/ACETAMINOPHEN 5mg/325mg TAB PO PRN (05:38)
[2021-10-10] MEDS: DOCUSATE SODIUM 100 MG CAP PO SCH ×2 (07:21→08:51)
[2021-10-10] MEDS: FERROUS SULFATE 325 MG TAB PO SCH (08:51)
[2021-10-10] MEDS: METOPROLOL SUCC 25MG EXT REL TAB PO SCH (08:51)
[2021-10-10] MEDS: lisinopril 5 MG TAB PO SCH (08:51)
[2021-10-10] MEDS: MAGNESIUM OXIDE 400 MG TAB PO SCH (08:52)
[2021-10-10] MEDS: FLUTICASONE/VILANTEROL 200/25MCG 14 PUFFS/INHALER INH SCH (08:52)
[2021-10-10] MEDS: GABAPENTIN 600 MG TAB PO SCH (08:52)
[2021-10-10] MEDS: PANTOprazole 40 MG TAB PO SCH (08:52)
[2021-10-10] MEDS: INSULIN ASPART PER UNIT SC SCH ×3 (08:56→17:49)
[2021-10-10 10:03] LABS: Hematocrit (blood only) 35.8 % (42-52); Hemoglobin 12.8 g/dL (14.0-18.0); Mean Corpuscular Hemoglobin 32.1 pg (25-34); Mean Corpuscular Hgb Conc 35.8 g/dL (32-36); Mean Corpuscular Volume 89.7 fL (80-100); Mean Platelet Volume 10.3 fL (7.4-10.4); Platelet Count 184 K/uL (130-400); RDW Coefficient of Variation 14.2 % (11.5-14.5); RDW Standard Deviation 47.1 fL (36.4-46.3); Red Blood Count 3.99 M/uL (4.7-6.1); White Blood Count 10.07 K/uL (4.8-10.8)
[2021-10-10 10:21] LABS: BUN Creatinine Ratio 20.9 (10-20); Calcium 9.1 mg/dl (8.5-10.1); Est GFR (African American) 95.2 ml/min; Est GFR (Non-African American) 82.2 ml/min; Magnesium 1.5 mg/dl (1.7-2.4); Phosphorus 1.6 mg/dl (2.5-4.9); Potassium 3.6 mmol/L (3.5-5.1)
[2021-10-10] MEDS ORDERED: FLUTICASONE PROPIONATE NA SPR 16 GM BTL PRN (14:30)
--- NOTE | 2021-10-10 15:01 | Surgery Progress Note ---
Date of Service October 10, 2021 Assessment & Plan (1) Acute cholecystitis due to biliary calculus: Plan: POD # 3 s/p laparoscopic cholecystectomy for gangrenous cholecystitis Afebrile, no leukocytosis Tolerating diet + bowel movement yesterday, abdomen less distended today + audible wheezing, still requiring O2 via nasal cannula, does not at baseline Plan: From surgical standpoint patient could be discharge, will likely need home health services given decreased mobility and postoperative state. Discussed with hospitalist about audible wheezing during my examination. Discharge instructions provided 2 week follow-up in surgical office. Dr. Hernandez was present during my examination and agrees with above Admission and Anticipated Discharge Date Admission Date: October 06, 2021 Subjective still having some incisional pain when moving, getting up out of bed no nausea or vomiting tolerating diet pain controlled with pain medication Physical Exam Constitutional: WD/WN, vitals as above no acute distress and not ill appearing Neck: normal visual inspection and trachea midline Respiratory: normal respiratory effort and + audible wheezes; no respiratory distress, no labored breathing and no retractions Gastrointestinal (Abdomen): Inspection/Auscultation: abdomen normal to inspection and + abdominal surgical incision (covered with dressings); + abnormal bowel sounds Percussion/Palpation: + abdomen tender (at incision sites) and abdomen soft; no guarding and abdomen not rigid ecchymosis surr ounding umbilical incision, incision approximated no induration or fluctuance Skin: no rashes, warm and dry Psychiatric: Orientation: alert and oriented x 3 Results & Data ([facility]) Vital Signs (Past 12 Hours) Vital Signs Temp Pulse Pulse Pulse Pulse Pulse Resp 10/10/21 13:37 98 H 103 H 93 H 86 10/10/21 13:04 10/10/21 11:43 10/10/21 08:23 10/10/21 07:57 36.6 C 79 16 10/10/21 05:42 Resp Resp Resp Resp BP Pulse Ox Pulse Ox 10/10/21 13:37 22 26 H 20 20 92 10/10/21 13:04 91 10/10/21 11:43 10/10/21 08:23 92 10/10/21 07:57 126/69 93 10/10/21 05:42 94 Pulse Ox Pulse Ox Pulse Ox Pulse Ox Pulse Ox 10/10/21 13:37 86 L 92 91 10/10/21 13:04 10/10/21 11:43 93 89 L 10/10/21 08:23 10/10/21 07:57 10/10/21 05:42 Laboratory Results 10/10/21 10/10/21 10/10/21 Range/Units 12:36 09:20 09:20 WBC 10.07 (4.8-10.8) K/uL RBC 3.99 L (4.7-6.1) M/uL Hgb 12.8 L (14.0-18.0) g/dL Hct 35.8 L (42-52) % MCV 89.7 (80-100) fL MCH 32.1 (25-34) pg MCHC 35.8 (32-36) g/dL RDW Std Deviation 47.1 H (36.4-46.3) fL RDW Coeff of Lachelle 14.2 (11.5-14.5) % Plt Count 184 (130-400) K/uL MPV 10.3 (7.4-10.4) fL Sodium 135 L (136-145) mmol/L Potassium 3.6 (3.5-5.1) mmol/L Chloride 104 (98-107) mmol/L Carbon Dioxide 23 (21-32) mmol/L Anion Gap 8 (3-11) BUN 19 (6-23) mg/dl Creatinine 0.91 (0.6-1.4) mg/dl Est Cr Clr Drug Dosing 77.0 ml/min Est GFR ( Amer) 95.2 ml/min Est GFR (Non-Af Amer) 82.2 ml/min BUN/Creatinine Ratio 20.9 H (10-20) Glucose 208 H (70-99(Fasting)) mg/dl POC Glucose 169 H (70-99) mg/dl Calcium 9.1 (8.5-10.1) mg/dl Phosphorus 1.6 L D (2.5-4.9) mg/dl Magnesium 1.5 L (1.7-2.4) mg/dl 10/10/21 10/09/21 10/09/21 Range/Units 08:16 20:48 17:32 WBC (4.8-10.8) K/uL RBC (4.7-6.1) M/uL Hgb (14.0-18.0) g/dL Hct (42-52) % MCV (80-100) fL MCH (25-34) pg MCHC (32-36) g/dL RDW Std Deviation (36.4-46.3) fL RDW Coeff of Lachelle (11.5-14.5) % Plt Count (130-400) K/uL MPV (7.4-10.4) fL Sodium (136-145) mmol/L Potassium (3.5-5.1) mmol/L Chloride (98-107) mmol/L Carbon Dioxide (21-32) mmol/L Anion Gap (3-11) BUN (6-23) mg/dl Creatinine (0.6-1.4) mg/dl Est Cr Clr Drug Dosing ml/min Est GFR ( Amer) ml/min Est GFR (Non-Af Amer) ml/min BUN/Creatinine Ratio (10-20) Glucose (70-99(Fasting)) mg/dl POC Glucose 189 H 137 H 143 H (70-99) mg/dl Calcium (8.5-10.1) mg/dl Phosphorus (2.5-4.9) mg/dl Magnesium (1.7-2.4) mg/dl
[2021-10-10] MEDS ORDERED: SODIUM PHOSPHATE 3 MMOL/1 ML INFUSION IV STA (15:47)
[2021-10-10] MEDS ORDERED: MAGNESIUM OXIDE 400 MG TAB PO ONE (15:49)
[2021-10-10] MEDS ORDERED: POT PHOSPHATE MONOBASIC W/ SOD TAB PO ONE ×2 (15:50→17:45)
[2021-10-10] MEDS ORDERED: SODIUM PHOSPHATE 12 MMOL in DEXTROSE 5% 250 ML IV ONE (16:00)
--- NOTE | 2021-10-10 16:33 | Discharge Summary ---
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 Patient reports he started to feel generally unwell yesterday. Then around 11 PM, he developed upper abdominal pain. Patient reports pain persisted throughout the night and he then presented to the ED for further evaluation. He has had a few episodes of vomiting. Describes emesis as bilious in nature. Denies hematemesis and coffee-ground emesis. [place] as though he was constipated yesterday and took a stool softener. Had 1 bowel movement in the ED. nursing described it as soft/loose. Patient denies any recent diarrhea at home. No bright red blood per rectum or dark tarry stools. He denies chest pain or shortness of breath. No fevers or chills. Denies urinary symptoms. In the ED, CT ABD/pelvis is showing cholelithiasis with pericholecystic fluid and gallbladder wall thickening concerning for acute cholecystitis. Lactate 2.7 --> 2.3. Other labs unremarkable. Patient is hemodynamically stable. Patient was given IV fentanyl, IV morphine, IV Zofran, IVF, IV Zosyn. Admission Exam Per Admitting Provider Constitutional: WD/WN, vitals as above Eyes: PERRL, conjunctivae normal, anicteric sclerae ENMT: external ear and nose normal, oropharynx normal Respiratory: normal respiratory effort, lungs clear to auscultation Cardiovascular: Rate/Rhythm: regular rate and regular rhythm Vessels: normal peripheral pulses Extremities: no edema Gastrointestinal (Abdomen): Inspection/Auscultation: normal bowel sounds; abdomen not distended Percussion/Palpation: + abdomen tender (Upper abdomen) and abdomen soft; no hepatosplenomegaly Musculoskeletal: no cyanosis or clubbing, extremities motor strength 5/5 Skin: no rashes, warm and dry Neurologic: PERRL, EOMI, accommodation nl, no face palsy, no dysarthria Psychiatric: A+Ox3, euthymic affect Principal Diagnosis C. difficile diarrhea Acute cholecystitis due to biliary calculus status post lap cholecystectomy COPD at baseline Discharge Exam GENERAL: Alert and oriented x3. NAD, on RA at bedside exam HEENT: No pallor, no icterus. Pupils equal, round and reactive to light. Oral mucosa moist. NECK: No JVD, no neck masses. HEART: S1 and S2 heard. Regular rate and rhythm. No murmur, no gallop. RESPIRATORY SYSTEM: Normal AP diameter. No accessory muscle use. No wheezing (even w/ repeat exam during the day on the day of discharge), no crackles. ABDOMEN: Soft, bowel sounds present, +tender, lap julio port w/ dressing, no distention. CENTRAL NERVOUS SYSTEM: No facial droop. Speech is clear. Obeys simple commands. Moves extremities. EXTREMITIES: No edema, no erythema seen. Discharge Data Allergies Allergy/AdvReac Type Severity Reaction Status Date / Time No Known Allergies Allergy Verified 03/30/21 12:45 Consultations 10/06/21 08:49 Consult General Surgery Routine 10/06/21 09:08 ED Decision to Admit Stat Procedures Performed Operation Date: 10/07/21 07:30 Actual Procedures p Laparoscopic Cholecystectomy(Not Applicable) - Jean Claude Givens MD Ordered Studies 10/06/21 06:28 CT abd pelvis IV con only Stat Hospital Course (1) C. difficile diarrhea: (2) Acute cholecystitis due to biliary calculus: 76 yo M was managed for the following while in Hospital: (1) Cholecystitis, acute: Plan: In the ED, CT ABD/pelvis showing cholelithiasis with pericholecystic fluid and gallbladder wall thickening concerning for acute cholecystitis. WBC 10.5K->downtrending, afebrile. Lactate normalized Continued on zosyn since ED presentation 10/06 --> dropped 10/09. S/p lap julio 10/[address] Givens Pain under control, patient eating okay, moving bowels. Surgery okay with d ischarge from their point of view. Patient being discharged with few days worth of pain medication, patient will need to get in touch with his PCP as an outpatient if he needs further pain med prescription. Patient reports difficulty swallowing, speech evaluated, recommends outpatient barium swallow study and video swallow study. Patient to coordinate with his PCP for these tests. (2) C. difficile diarrhea, first recurrence Plan: C. difficile toxin and gene positive History of C. difficile in 2018 Patient currently does not report significant diarrhea continue po vanco as directed. Stool also positive for EPEC --supportive care (3) CAD (coronary artery disease): Plan: Remote history of cardiac cath showing mild, nonobstructive disease Stress test December 2020 negative for ischemia Appears stable, no reports of chest pain, EKG without acute ST changes Continue beta-cesario and statin (4) HTN (hypertension): Plan: Continue home doses of metoprolol and lisinopril with hold parameters (5) Diabetes mellitus, type 2: Plan: Hgb A1c 7.7 05/2021 Hold metformin, Lantus and NovoLog per protocol while hospitalized (6) Alberto's esophagus: Plan: History of cancer within 1 segment of the Alberto's s/p cryoablation Recent EGD 08/2021 with negative biopsies Continue PPI (7) Chronic obstructive pulmonary disease: Plan: No signs of acute exacerbation Continue home inhalers There was concern of wheezing during the day Per Sx PAC Marielle, no wheezing noted at bedside exam in the morning and repeat exam during the afternoon. Upon further discussion with the patient, patient reports he has some wheezing occasionally francisco j when he eats "crunchy" foods and he uses his as needed medication. RN requested to give his home as needed medications. Patient remained stable and on room air at bedside without wheezing during repeat examination. Patient completed two-step test, will need 2 L nasal cannula oxygen with ambulation. Prescription provided. (8) BPH (benign prostatic hyperplasia): Plan: Continue tamsulosin (9) Depression with anxiety: Plan: Continue home med (10) DVT prophylaxis: Plan: sc heparin Patient being discharged to home with home health with following instruction at the point of discharge: Follow-up with your primary care physician within a week time. Follow-up with your surgery doctor in 2 weeks time of discharge. For your C. difficile diarrhea, continue your p.o. vancomycin as: take 125 mg 4 times per day for 10 days; 2 times per day for 7 days; once daily for 7 days; once every 2-3 days for 2-8 weeks Get your blood work CMP, CBC, magnesium and phosphorus level done in 3 days upon discharge and have the results forwarded to your primary care physician. Since your magnesium and phosphorus were low in the hospital, you are being discharged on magnesium and phosphorus supplements for a week worth, follow-up with your primary physician for further evaluation/management. For your pain management, you are being discharged on Percocet as needed for severe pain for a few days worth, if you need further pain medication prescription, you will need to get in touch with your primary care physician for further evaluation and management. For your swallowing difficulty, you will need Barium Swallow Study (eosphagram) and Video Swallow Study. Please coordinate with your PCP for setting up this test as an outpatient. Take your medications as prescribed. Total Time Total Time Spent Total Time Spent (In Minutes): 45 Discharge Plan Discharge Items Patient Disposition: Home - Home Health Services Reason For Visit: ACUTE CHOLECYSTITIS Discharge Diagnosis: C. difficile diarrhea Acute cholecystitis due to biliary calculus status post lap cholecystectomy COPD Activity: Resume your previous activity Non-emergency contact: Primary Care Provider Call non-emergency contact if: you have any medication questions, your pain is not controlled and your temperature is above 101 Follow-up/Referrals: Marielle Del Castillo PA-C [Physician Production Machine Computer Operator] - (Date & Time 10/23/2021 2:45 PM Provider Marielle Del Castillo PA-C Department General Surgery, [facility] ) Sakshi Barros DO [Primary Care Provider] - (Date & Time 10/15/2021 1:00 PM Provider Gera Soler MD Department Family Medicine [facility] ) Diet: Carb Consistent or DM2 Fluids: 1500ml (6 cups) Diet Texture: Easy to Chew Addtl Attending Provider Instructions: Follow-up with your primary care physician within a week time. Follow-up with your surgery doctor in 2 weeks time of discharge. For your C. difficile diarrhea, continue your p.o. vancomycin as: take 125 mg 4 times per day for 10 days; 2 times per day for 7 days; once daily for 7 days; o nce every 2-3 days for 2-8 weeks Get your blood work CMP, CBC, magnesium and phosphorus level done in 3 days upon discharge and have the results forwarded to your primary care physician. Since your magnesium and phosphorus were low in the hospital, you are being discharged on magnesium and phosphorus supplements for a week worth, follow-up with your primary physician for further evaluation/management. For your pain management, you are being discharged on Percocet as needed for severe pain for a few days worth, if you need further pain medication prescription, you will need to get in touch with your primary care physician for further evaluation and management. For your swallowing difficulty, you will need Barium Swallow Study (eosphagram) and Video Swallow Study. Please coordinate with your PCP for setting up this test as an outpatient. Take your medications as prescribed. Addtl Ent Surgeon Provider Instructions: Post-Surgical ~Discharge Instructions Activity Recommendations: - lifting limitation: (20 pounds for 4 weeks), - exercise/sex/sports limit: (nonstrenuous for 2 weeks), - driving or machine use limit: (none for 1 week or until pain free), - Shower/bathe limit: (may shower, no submerging incisions underwater for 2 weeks) Diet: - Resume previous diet SPECIAL CARE INSTRUCTIONS: - May shower. Let water run over area and pat dry. - Leave steri strips on for one week and then remove. They may fall off on their own that is okay. - You have some bruising around the incision above your belly button. Monitor for increasing bruising or bleeding from incision sites. - Call the surgeon's office with any questions or concerns - - (ex. temperature higher than 101 degrees F, excessive bleeding or pain). MEDICATIONS: - Resume previous medications unless instructed otherwise by your surgeon. - May take extra strength Tylenol as needed for mild to moderate pain. -500 mg every 6 hours as needed - Percocet 1 every 4 hours, as needed for pain FOLLOW UP VISIT: - If not already scheduled, please call the office to schedule a two week follow-up appointment. Office number Pending Studies at Discharge: No Stand-Alone Forms: [facility] [employer], Smoking Cessation Medications and DC Order Prescriptions: New vancomycin 125 mg capsule 125 mg PO DIRECTED 77 Days Qty: 77 RF: 0 oxycodone-acetaminophen [Percocet] 5-325 mg Tablet 1 tab PO Q6H PRN (Reason: severe pain (scale score 7-10)) Qty: 12 RF: 0 Phospha 250 Neutral 250 mg tablet 1 tab PO QID 7 Days Qty: 28 RF: 0 Continued tamsulosin 0.4 mg Capsule 0.4 mg PO QPM RF: 0 sertraline 50 mg Tablet 50 mg PO HS RF: 0 metformin 1,000 mg Tablet 1,000 mg PO BIDM RF: 0 gabapentin 300 mg Capsule 600 mg PO BID RF: 0 pantoprazole [Protonix] 40 mg Tablet,Delayed Release (Dr/Ec) 40 mg PO BID RF: 0 Multi-Day Plus Minerals 18 mg iron-400 mcg-25 mcg Tablet 1 tab PO QAM RF: 0 insulin glargine 100 unit/mL Solution 15 unit SUBCUT HS RF: 0 lisinopril 5 mg Tablet 5 mg PO QAM RF: 0 latanoprost 0.005 % Drops 1 drp OPHTHALMIC (EYE) HS RF: 0 rosuvastatin 40 mg tablet 40 mg PO HS RF: 0 fluticasone propionate 50 mcg/actuation [place],Suspension 2 spray INTRANASAL Q12H PRN (Reason: Congestion) RF: 0 fluticasone propion-salmeterol 250-50 mcg/dose blister with device 1 inh INHALATION BID RF: 0 cyanocobalamin (vitamin B-12) [Vitamin B-12] 100 mcg Tablet 100 mcg PO DAILY RF: 0 metoprolol succinate 25 mg tablet extended release 24 hr 12.5 mg PO DAILY RF: 0 ferrous sulfate [iron] 325 mg (65 mg iron) Tablet 325 mg PO QAM RF: 0 docusate sodium [Colace] 100 mg capsule 100 mg PO BID PRN (Reason: Constipation) RF: 0 Changed magnesium oxide [MgO] 400 mg (241.3 mg magnesium) Tablet 400 mg PO BID Qty: 0 RF: 0 Discharge Orders: Discharge Order (Routine); Ordered 10/10/21 Ordered By: Eleuterio Vega/Other Patient Handouts: DVT Post Op Prevention, Preventing Deep Vein Thrombosis Admission Data Admit Date/Time: 10/06/21 09:12 Attending Provider: Eleuterio Valadez Admit Provider: Arvind Lopez Primary Care Provider: Sakshi Barros Other Providers: Jean Claude Givens ; Arvind Lopez ; [facility] Other Interventions: Discharge Summary Assessment (RN) Last Done: 10/10/21 15:10
== END 2021-10-10 18:57 | disposition home health service (06) | DRG 418 ==
LOC: ED 06:19 → SUATTDRO 09:12 → 3E 09:12

== ENCOUNTER 2023-10-04 23:03 | Inpatient (IN) ==
--- OUTSIDE RECORDS SUMMARY | 2023-10-04 23:10 | External Medical Summary | Summary of Care ---
Author Name Unknown Organization [facility] Address [address] [facility] [place] [address] Phone [phone] Care Team Providers Care Field Service Poultry Technician Name Role Phone BarrosSakshi austin Primary Care Provider [phone] Reason for Visit * Reason Onset Date Comments Nurse Telephone Follow Up 09/30/2023 Encounter Details Date Type Department Care Team (Late st Contact Info) Description 09/30/2023 2:00 PM EDT Scheduled Telephone [facility] [address] [place] [address] [place] Nurse Phone Call Interventional Pain [facility] [address] [place] [address] Arrived Allergies No known active allergiesdocumented as of this encounter (statuses as of 09/30/2023) Medications Medication Sig Dispensed Refills Start Date End Date Status M-VIT PO TABS one a day Active VITAMIN B 12 100 MCG PO LOZG one a day Active acetaminophen (TYLENOL) 325 MG TabletIndications:morgan k pain Take 2 Tablets by mouth every 6 hours as needed for Pain. Active Magnesium Oxide 400 (240 Mg) MG Oral Tablet Take 1 Tablet by mouth in the morning. Active Amoxicillin 500 MG Oral Capsule (Amoxil)Indications:S tatus post total left knee replacement TAKE 4 CAPSULES BY MOUTH 1 HOUR PRIOR TO APPOINTMENT 4 Capsule 1 05/29/2021 Active Vitamin D3 50 MCG (2000 UT) Oral Capsule Take 1 Capsule by mouth in the morning. Active Probiotic 1-250 BILLION-MG Oral Capsule Take by mouth. Active OneTouch Verio In Vitro Strip (Glucose Blood)Indications:Typ e 2 diabetes mellitus with diabetic neuropathy, without long-term current use of insulin ([facility]) USE UP TO 3 TIMES A DAY E11.9 300 Strip 1 10/07/2022 Active Glucose Blood In Vitro Strip USE UP TO THREE TIMES A DAY 300 Strip 1 10/09/2022 4 Active Rosuvastatin Calcium 40 MG Oral Tablet (Crestor)Indications: Hyperlipidemia with target LDL less than 70 TAKE ONE TABLET BY MOUTH EVERY DAY 90 Tablet 3 09/09/2022 4 Active Additional Information Patient taking differently:40 mg Oral Daily(AM),Indications: cholesterol, Reported on 10/28/2022 Insulin Pen Needle 32G X 4 MMIndications:DM type 2, goal HbA1c < 8% ([facility]) USE ONCE DAILY 100 Each 3 08/21/2022 4 Active OneTouch Delica Plus [id number]: Type 2 diabetes mellitus with diabetic neuropathy, without long-term current use of insulin ([facility]) Test up to four times daily 400 Each 1 12/26/2022 Active Aspirin 81 MG Oral Tablet Delayed Release (Aspirin 81) Take 1 Tablet by mouth in the morning. Active Metamucil Fiber 51.7 % Oral Packet (Psyllium) Take by mouth. Active Latanoprost 0.005 % Ophthalmic Solution (Xalatan) INSTILL ONE DROP INTO BOTH EYES EVERY NIGHT 7.5 mL 3 03/14/2023 Active Gabapentin 300 MG Oral Capsule (Neurontin) TAKE TWO CAPSULES BY MOUTH TWICE A DAY -- IN THE MORNING AND BEFORE BEDTIME 400 Capsule 1 04/22/2023 4 Active Tamsulosin HCl 0.4 MG Oral Capsule (Flomax)Indications:B PH without obstruction/lower urinary tract symptoms,Ureteral stone Take 2 Capsules by mouth in the morning. 200 Capsule 3 04/30/2023 Active Metoprolol Succinate ER 25 MG Oral Tablet Extended Release 24 Hour (toPROL XL)Indications:HTN, goal below 140/90 TAKE ONE-HALF TABLET BY MOUTH IN THE MORNING 45 Tablet 3 05/29/2023 5 Active Pramipexole Dihydrochloride 0.25 MG Oral Tablet (Mirapex)Indications: Restless legs syndrome TAKE ONE TABLET BY MOUTH AT BEDTIME 100 Tablet 3 06/20/2023 5 Active Potassium Chloride Angélica ER 10 MEQ Oral Tablet Extended Release Take 1 Tablet by mouth daily. 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 TAKE ONE TABLET BY MOUTH EVERY SIX HOURS NEEDED FOR SEVERE PAIN 60 Tablet 07/18/2023 Active metFORMIN HCl 1000 MG Oral Tablet (Glucophage)Indicatio ns:Type 2 diabetes mellitus with diabetic neuropathy, unspecified (HCC) TAKE 1 TABLET BY MOUTH TWICE A DAY WITH BREAKFAST AND DINNER 180 Tablet 3 07/28/2023 Active Sertraline HCl 50 MG Oral Tablet (Zoloft)Indications:A nxiety TAKE 1 TABLET BY MOUTH EVERYDAY AT BEDTIME 90 Tablet 2 08/12/2023 Active Fluticasone-Salmetero l 250-50 MCG/ACT Inhalation Aerosol Powder Breath Activated (Advair Diskus)Indications:As thma-COPD overlap syndrome (HCC) INHALE ONE PUFF BY MOUTH TWICE A DAY-MORNING AND BEFORE BEDTIME. RINSE MOUTH WELL AFTER EACH USE 180 Each 1 09/09/2023 5 Active Pantoprazole Sodium 40 MG Oral Tablet Delayed Release (Protonix)Indications :Alberto's esophagus without dysplasia TAKE ONE TABLET BY MOUTH EVERY MORNING AND TAKE ONE TABLET BY MOUTH AT BEDTIME 200 Tablet 3 09/14/2023 5 Active documented as of this encounter (statuses as of 09/30/2023) Active Problems Problem Noted Date Diagnosed Date Type 2 diabetes mellitus wit h diabetic neuropathy, without long-term current use of insulin 07/09/2023 Chronic right shoulder pain 08/05/2022 Last Assessment & Plan: Has an appointment to go see Dr. Mendoza, his orthopedic surgeon, next week -continue ice Diabetic polyneuropathy asso ciated with type 2 diabetes mellitus 03/06/2022 Last Assessment & Plan: Current Status: "Stable" for patient / At or near baseline Degree of Condition Awareness: Demonstrates very good awareness of condition, disease course, and prognosis "RED FLAG" Diabetic symptoms: o none Goal HgbA1c o <8 Diabetic Complications o Vascular (examples: PVD, PAD, CAD, CVA) Medication Regimen o Metformin o Basal/Long Acting Insulin DM Secondary Prevention o OMID Inhibitor / ARB o Moderate-High Intensity Statin History of cholecystectomy 10/15/2021 Atherosclerosis of [place] ronary artery without angina pectoris 05/29/2021 Last Assessment & Plan: Continue statin, metoprolol, lisinopril Not on aspirin due to GI bleeding Occupational exposure to other air contaminants 11/21/2020 Hypomagnesemia 11/10/2020 Recurrent major depressive disorder, in [facility] n 05/22/2020 History of [place] (myocardial infarction) 05/22/2020 Primary open-angle glaucoma, left eye, mild stag e 06/30/2019 HTN, goal below 140/90 06/30/2019 Last Assessment & Plan: BP stable -continue lisinopril, metoprolol Asthma-COPD overlap syndrome 05/28/2019 Last Assessment & Plan: Oxygen 94% on room air. Emphasized taking Advair twice daily and rinsing mouth. DM type 2, goal HbA1c < 8% 11/13/2018 Microalbuminuria 08/12/2018 History of GI diverticular bleed 05/13/2018 Last Assessment & Plan: No black or bloody stools. No diabetic retinopathy in both eyes 02/04/2018 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-sided sciatica 01/07/2018 Last Assessment & Plan: Injection lumbar spine given April 2022 Pain down leg is improved. Still having some pain in the back. Is going to follow-up with pain management. Hx of nonmelanoma skin cancer 08/06/2017 Overview: squamous cell carcinoma (L nare), basal cell carcinoma (L nare), Aleksander (L lower eyelid 02/13), squamous cell carcinoma in situ (L post auricular region 06/2020, R lateral cheek 06/20) AK (actinic keratosis) 08/06/2017 Overview: Efudex (scalp/face 06/21) History of esophageal cancer 05/22/2017 Overview: In Situ. May 2017. Subsequent endoscopy was clear. Status post total left knee replacement 08/13/19 17 Alberto's esophagus without dysplasia 02/07/2016 Overview: Needs repeat EGD in 12/2016 Last Assessment & Plan: Stable on pantoprazole 40 mg twice daily -follows with GI Restless legs syndrome 02/05/2016 Last Assessment & Plan: Continue Requip BPH without obstruction/lower urinary tract symp toms 02/05/2016 Last Assessment & Plan: Stable on Flomax Hyperlipidemia with target LDL less than 70 01/26 Last Assessment & Plan: Continue rosuvastatin Anxiety 02/05/2016 Last Assessment & Plan: Continue sertraline documented as of this encounter (statuses as of 09/30/2023) Resolved Problems Problem Noted Date Diagnosed Date Resolved Date Absolute anemia 02/21/2021 06/12/2022 Abnormal thyroid blood test 03/30/2020 11/21/2020 Overview: From Dr. Nuñez. Will recheck through [facility] next time he is seen. Major depressive disorder, s ben episode, unspecified 06/30/2019 05/22/2020 Diverticulitis of colon 01/07/201804/28 Esophageal adenocarcinoma 06/05/2017 Overview: In situ H/O nonmelanoma skin cancer 01/10/2017 08/06/2017 Basal cell carcinoma of nose 07/09/2016 01/10/2017 Heartburn 02/05/2016 11/13/2018 Type 2 diabetes mellitus wit h diabetic neuropathy 02/05/2016 06/05/2022 Last Assessment & Plan: Blood sugars usually range 120 to 150. Last hemoglobin A1c [id number] continue metformin, Lantus Rectal bleeding 02/05/2016 01/10/2017 Overview: Had EGD/colonoscopy Acute blood loss anemia 02/05/201612/27 HTN, goal below 140/90 02/05/201601/10 Neuropathy 02/05/2016 01/10/2017 AK (actinic keratosis) 01/12/201401/10 Overview: Efudex (Salina Vazquez)- 04/2014 documented as of this encounter (statuses as of 09/30/2023) Immunizations Name Administration Dates Next Due COVID-19 mRNA, LNP-s, No Pre serve, 2-Dose Series (Smarp Oy) 04/05/2021,07/04/2020,06/13/2020 COVID-19, MRNA-LNP, 23-24, P F, 30 MCG/0.3 mL, 12 YRS AND ABOVE, IM (PFIZER-Comirnaty) 02/24/2023 Pneumococcal Conjugate Vacc, 13 Valent (Prevnar) 01/19/2016 Pneumococcal Polysaccharide PPV23 (Pneumovax) 08/08/2017 Seasonal Influenza, PF, 6 M & above, IM , (FluLaval or Fluzone) 01/26/2019,01/07/2018 Seasonal Influenza, Quadriva lent Hd (Fluzone Hd) 02/24/2023,02/15/2022,01/31/2021 Seasonal Influenza, Quadriva lent Hd, 65+ Yrs 03/09/2020 Seasonal Influenza, Quadriva lent, No Preserve, IM 01/10/2017 Seasonal Influenza, Quadriva lent,with Preserve, 3 yr & above, IM 01/19/2016 Seasonal Influenza, Split, I IV3, With Preserve, Inj 01/19/2016 Seasonal Influenza, Trivalen t, High Dose, No Preserve, IM 03/07/2019 TDAP (age 10 and older)(Boostrix) 01/10/2017 Zoster Vaccine Recombinant (Shingrix) 01/14/2019 ,12/27/2018,11/12/2018 documented as of this encounter Social History Tobacco Use Types Packs/Day Years Used Date Smoking Tobacco: Former Cigarettes 2 32 0 11/26/1957 - 11/26/1989 Smokeless Tobacco: Never Alcohol Use Standard Drinks/Week Comments Yes 0 (1 standard drink = 0.6 oz pur e alcohol) occ. PHQ-2 Answer Date Recorded PHQ Adult Total Score 0 02/21/2021 Hunger Vital Sign Answer Date Recorded Worried About Running Out of Food in the Last Ye ar Never true 05/19/2019 Ran Out of Food in the Last Year Never true 05/19/2019 Sex and Gender Information Value Date Recorded Sex Assigned at Not on file Gender Identity Not on file Sexual Orientation Not on file Job Start Date Occupation Industry Not on file Not on file Not on file documented as of this encounter Miscellaneous Notes * Telephone Encounter - Saige Preston PA-C - 09/30/2023 2:01 PM EDT Moderate pain relief after right interlaminar SURJIT L5/1 on 09/04. Can consider repeat injection PRN. * Telephone Encounter - Lanny Quintero LPN - 09/30/2023 1:33 PM EDT L5/S1 interlaminar epidural steroid injection on the right side on 09/05/23 Patient reports 60% reduction in pain after injection. Pain is still currently 60% Patient reports Right hip pain intermittent Achy with walking. Patient is not having pain at this time as he is resting but with walking he can have 5/10 pain. Patient reports he is very satisfied with this injection and would like to repeat when possible. Patient will call the office when the pain returns more. documented in this encounter Plan of Treatment Upcoming Encounters Date Type Department Care Team (Late st Contact Info) Description 12/01/2023 10:00 AM EDT [facility] [address] [facility] [place] [address] Melinda Stallworth, DPM [address] [facility] [place] [address] 01/27/2024 8:00 AM EDT Office Visit Cardiology [address] [place] [address] [facility] PAHectorC [address] [place] [address] 02/13/2024 9:30 AM EDT Office Visit Family Medicine [address] [place] [phone] Sakshi Barros[address] [place] [address] 06/16/2024 10:20 AM EST Office Visit Dermatology [address] [place] [address] Charline Hurst PA-C [address] [place] [address] [place] [phone] Scheduled Procedures Name Priority Associated Diagnoses Date/Ti me ESOPHAGOGASTRODUODENOSCOPY ( EGD), FLEXIBLE, TRANSORAL, DIAGNOSTIC Recall Alberto's esophagus with esophagitis COLONOSCOPY FLEXIBLE PROXIMAL DIAGNOSTIC Recall Screening for colon cancer Health Maintenance Due Date Last Done Comments Alpha-1 Antitrypsin 01/16/1963 Albumin/Creatinine Ratio 06/12/2023 023, 03/06/2022, 12/04/2021, Additional history exists COVID-19 Vaccine (2022- season) 2023 02/24/2023, 01/08/2022, 04/05/2021, Additional history exists Diabetic Eye Exam 09/25/2023 09/24/2022, , 09/24/2022, Additional history exists HbA1c 12/16/2023 06/17/2023, 11/28, 06/12/2022, Additional history exists Diabetic Foot Exam 12/26/2023 12/25/2022, 1 05/06/2021, 05/29/2021, Additional history exists O2 ASSESSMENT COMPLETED IN PAST YEAR FOR COPD 05/02/2024 05/02/2023 GFR 06/17/2024 06/17/2023, 11/26, 01/11/2022, Additional history exists B-12 07/08/2024 07/09/2023, 05/29, 01/31/2021, Additional history exists Alberto's Esophagus Surveilance 03/04/2026 03/04/2023, 03/04/2023, 01/30/2022, Additional history exists DTaP,Tdap,and Td Vaccines (2 - Td or Tdap) 01/10/2027 01/10/2017 Pneumococcal Vaccine: 65+ Years Completed 08/08/2017, 01/19/2016 Zoster Vaccines Completed 01/14/2019, 04/2018, 11/12/2018 Influenza Vaccine (FLU shot) Completed , 02/15/2022, 01/31/2021, Additional history exists GARDASIL-HPV IMMUNIZATION SERIES Aged Out No longer eligible based on patient's age to complete this topic Hepatitis B Aged Out No longer eligi ble based on patient's age to complete this topic MENINGOCOCCAL (MENACTRA/MENVEO) Aged Out No longer eligible based on patient's age to complete this topic documented as of this encounter Medical Devices Implanted Type Area Convertible Power Shovel Operator Device Identifier Shelf Expiration Date Model / Serial / Lot Mesh 3dmax 3.1x5.3in t Med - [id number] Implanted:Qty: 1 on 05/02/2023 by Jean Claude Givens MD at OR [facility] Right: Groin CR BARD : DAVOL 03/25/2027 [id number] / / [id number] documented as of this encounter Advance Directives * Full Code (Latest Code Status on File) Date Activated Date Inactivated Comments 05/02/2023 7:51 AM 05/02/2023 2:28 PM This order ref lects the patients wishes and were consensually agreed upon. Question Answer Comments Discussion of Advance Directives occurred with: Patient * Full Code Date Activated Date Inactivated Comments 05/02/2023 7:31 AM 05/02/2023 7:51 AM This order ref lects the patients wishes and were consensually agreed upon. Question Answer Comments Discussion of Advance Directives occurred with: Patient * Full Code Date Activated Date Inactivated Comments 02/19/2022 2:45 PM 02/19/2022 7:48 PM This order reflects the patients wishes and were consensually agreed upon. Question Answer Comments Discussion of Advance Direct love occurred with: Not Discussed due to patient's condition * Full Code Date Activated Date Inactivated Comments 02/19/2022 1:50 PM 02/19/2022 2:45 PM This order reflects the patients wishes and were consensually agreed upon. Question Answer Comments Discussion of Advance Direct love occurred with: Not Discussed due to patient's condition Care Teams Field Service Poultry Technician Relationship Specialty Start Date End Date Sakshi Barros DO [address] [place] [address] [place] [phone] PCP - General Internal Medicine 02/05/16 documented as of this encounter
--- OUTSIDE RECORDS SUMMARY | 2023-10-04 23:10 | External Medical Summary | Summary of Care ---
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 Active Magnesium Oxide 400 (240 Mg) MG Oral Tablet Take 1 Tablet by mouth in the morning. Active Amoxicillin 500 MG Oral Capsule (Amoxil)Indications: Status post total left knee replacement TAKE 4 CAPSULES BY MOUTH 1 HOUR PRIOR TO APPOINTMENT 4 Capsule 1 2 Active Vitamin D3 50 MCG (2000 UT) Oral Capsule Take 1 Capsule by mouth in the morning. Active Probiotic 1-250 BILLION-MG Oral Capsule Take by mouth. Active OneTouch Verio In Vitro Strip (Glucose Blood)Indications:Ty pe 2 diabetes mellitus with diabetic neuropathy, without long-term current use of insulin (HCC) USE UP TO 3 TIMES A DAY E11.9 300 Strip 1 3 Active Glucose Blood In Vitro Strip USE UP TO THREE TIMES A DAY 300 Strip 1 3 10/09/19 24 Active Rosuvastatin Calcium 40 MG Oral Tablet (Crestor)Indications :Hyperlipidemia with target LDL less than 70 TAKE ONE TABLET BY MOUTH EVERY DAY 90 Tablet 3 3 10/16/19 24 Active Additional Information Patient taking differently:40 mg Oral Daily(AM),Indications: cholesterol, Reported on 10/28/2022 Insulin Pen Needle 32G X 4 MMIndications:DM type 2, goal HbA1c < 8% ([facility]) USE ONCE DAILY 100 Each 3 3 10/27/19 24 Active OneTouch Delica Plus [id number] :Type 2 diabetes mellitus with diabetic neuropathy, without long-term current use of insulin ([facility]) Test up to four times daily 400 Each 1 3 Active Aspirin 81 MG Oral Tablet Delayed Release (Aspirin 81) Take 1 Tablet by mouth in the morning. Active Metamucil Fiber 51.7 % Oral Packet (Psyllium) Take by mouth. Active Latanoprost 0.005 % Ophthalmic Solution (Xalatan) INSTILL ONE DROP INTO BOTH EYES EVERY NIGHT 7.5 mL 3 3 Active Gabapentin 300 MG Oral Capsule (Neurontin) TAKE TWO CAPSULES BY MOUTH TWICE A DAY -- IN THE MORNING AND BEFORE BEDTIME 400 Capsule 1 3 04/21/20 24 Active Tamsulosin HCl 0.4 MG Oral Capsule (Flomax)Indications: BPH without obstruction/lower urinary tract symptoms,Ureteral stone Take 2 Capsules by mouth in the morning. 200 Capsule 3 4 Active Metoprolol Succinate ER 25 MG Oral Tablet Extended Release 24 Hour (toPROL XL)Indications:HTN, goal below 140/90 TAKE ONE-HALF TABLET BY MOUTH IN THE MORNING 45 Tablet 3 4 05/28/19 25 Active Pramipexole Dihydrochloride 0.25 MG Oral Tablet (Mirapex)Indications :Restless legs syndrome TAKE ONE TABLET BY MOUTH AT BEDTIME 100 Tablet 3 4 06/19/19 25 Active Potassium Chloride Angélica ER 10 MEQ Oral Tablet Extended Release Take 1 Tablet by mouth daily. 90 Tablet 3 4 Active Additional Information Patient taking differently: 5 mEqOral Daily(Non-Specified), Reported on 08/29/2023 Lantus SoloStar 100 UNIT/ML Subcutaneous Solution Pen-injectorIndicati ons:DM type 2, goal HbA1c < 8% (HCC) INJECT 15 UNITS UNDER THE SKIN DAILY 15 mL 2 4 07/17/19 25 Active traMADol HCl 50 MG Oral Tablet (Ultram)Indications: Spinal stenosis of lumbar region with neurogenic claudication TAKE ONE TABLET BY MOUTH EVERY SIX HOURS NEEDED FOR SEVERE PAIN 60 Tablet 4 Active metFORMIN HCl 1000 MG Oral Tablet (Glucophage)Indicati ons:Type 2 diabetes mellitus with diabetic neuropathy, unspecified (HCC) TAKE 1 TABLET BY MOUTH TWICE A DAY WITH BREAKFAST AND DINNER 180 Tablet 3 4 Active Sertraline HCl 50 MG Oral Tablet (Zoloft)Indications: Anxiety TAKE 1 TABLET BY MOUTH EVERYDAY AT BEDTIME 90 Tablet 2 4 Active Fluticasone-Salmeter ol 250-50 MCG/ACT Inhalation Aerosol Powder Breath Activated (Advair Diskus)Indications:A sthma-COPD overlap syndrome (HCC) INHALE ONE PUFF BY MOUTH TWICE A DAY-MORNING AND BEFORE BEDTIME. RINSE MOUTH WELL AFTER EACH USE 180 Each 1 4 09/09/19 25 Active Pantoprazole Sodium 40 MG Oral Tablet Delayed Release (Protonix)Indication s:Alberto's esophagus without dysplasia TAKE ONE TABLET BY MOUTH EVERY MORNING AND TAKE ONE TABLET BY MOUTH AT BEDTIME 200 Tablet 3 4 09/14/19 25 Active Pantoprazole Sodium 40 MG Oral Tablet Delayed Release (Protonix)Indication s:Alberto's esophagus without dysplasia TAKE ONE TABLET BY MOUTH EVERY MORNING AND TAKE ONE TABLET BY MOUTH AT BEDTIME 200 Tablet 3 3 09/13/19 24 Discontinu ed(Refill) documented as of this encounter (statuses as of 09/14/2023) Active Problems Problem Noted Date Diagnosed Date Type 2 diabetes mellitus wit h diabetic neuropathy, without long-term current use of insulin 07/09/2023 Chronic right shoulder pain 08/05/2022 Last Assessment & Plan: Has an appointment to go see Dr. Mendoza, his orthopedic surgeon, next week -continue ice Diabetic polyneuropathy aisha whyte with type 2 diabetes mellitus 03/06/2022 Last [...] Statin History of cholecystectomy 10/15/2021 Atherosclerosis of [place] ronary artery without angina pectoris 05/29/2021 Last Assessment & Plan: Continue statin, metoprolol, lisinopril Not on aspirin due to GI bleeding Occupational exposure to other air contaminants 11/21/2020 Hypomagnesemia 11/10/2020 Recurrent major depressive disorder, in [facility] 05/22/2020 History of [place] (myocardial infarction) 05/22/2020 Primary open-angle glaucoma, left [...] as of this encounter (statuses as of 09/14/2023) Resolved Problems Problem Noted Date Diagnosed Date Resolved Date Absolute anemia 02/21/2021 06/12/2022 Abnormal thyroid blood test 03/30/2020 11/21/2020 Overview: From Dr. Nuñez. Will recheck through [employer] next time he is seen. Major depressive [...] range 120 to 150. Last hemoglobin A1c 7.15316 continue metformin, Lantus Rectal bleeding 02/05/2016 01/10/2017 Overview: Had EGD/colonoscopy Acute blood loss anemia 02/05/201612/27 HTN, goal below 140/90 02/05/201601/10 Neuropathy 02/05/2016 01/10/2017 AK (actinic keratosis) 01/12/201401/10 Overview: Efudex (Salina Vazquez)- 04/2014 documented as of this encounter (statuses as of 09/14/2023) Immunizations Name Administration Dates Next Due COVID-19 mRNA, LNP-s, No Pre serve, 2-Dose Series (Linea) 04/05/2021,07/04/2020,06/13/2020 COVID-19, MRNA-LNP, 23-24, P F, 30 [...] encounter Miscellaneous Notes * Telephone Encounter - Hollie Torre RPh - 09/14/2023 10:13 AM EDTSigned Prescriptions: Disp Refills Pantoprazole Sodium 40 MG Oral Tablet Sandra*200 Ta*3 Sig: TAKE ONE TABLET BY MOUTH EVERY MORNING AND TAKE ONE TABLET BY MOUTH AT BEDTIMEAuthorizing Provider: CINDY SINCLAIR User: HOLLIE TORRE documented in this encounter Plan of Treatment Upcoming Encounters Date Type Department Care Team (Late st Contact Info) Description 09/30/2023 2:00 PM EDT Scheduled Telephone [facility], [address] [place] [address] [place], Nurse Phone Call Interventional Pain Gen [address] [place] [address] 12/01/2023 10:00 AM EDT [facility] [address] [place] [address] Melinda Stallworth, DPM [address] [facility] [place] [address] 01/27/2024 8:00 AM EDT Office Visit Cardiology [address] [place] [address] Tito House PA-C [address] [place] [address] 02/13/2024 9:30 AM EDT Office Visit Family Medicine [address] [place] [phone] Cindy Sinclair [address] [place] [address] 06/16/2024 10:20 AM EST Office Visit Dermatology [address] [place] [address] Charline Hurst PA-C [address] [place] [address] [place] [address] Scheduled Procedures Name Priority Associated Diagnoses Date/Ti me ESOPHAGOGASTRODUODENOSCOPY ( EGD), FLEXIBLE, TRANSORAL, DIAGNOSTIC Recall Alberto's esophagus with esophagitis COLONOSCOPY FLEXIBLE PROXIMAL DIAGNOSTIC Recall Screening for colon cancer Health Maintenance Due Date Last Done Comments Alpha-1 Antitrypsin 01/16/1963 Albumin/Creatinine Ratio 06/12/2023 023, 03/06/2022, 12/04/2021, Additional history exists Diabetic Eye Exam 09/25/2023 09/24/2022, , 09/24/2022, Additional history exists HbA1c 12/16/2023 06/17/2023, 08/3 , 06/12/2022, Additional history exists Diabetic Foot Exam [...] 01/19/2016 Zoster Vaccines Completed 01/14/2019, 04/2018, 11/12/2018 COVID-19 Vaccine Completed 02/24/2023, , 04/05/2021, Additional history exists Influenza Vaccine (FLU shot) Completed , 02/15/2022, [...] this encounter Medical Devices Implanted Type Area Cleater Device Identifier Shelf Expiration Date Model / Serial / Lot Mesh 3dmax 3.1x5.3in [facility] Med - [id number] Implanted:Qty: 1 on 05/02/2023 by Jean Claude Givens MD at OR [facility] Right: Groin CR BARD : DAVOL 03/25/2027 [id number] / / [id number] documented as of this encounter Visit Diagnoses Diagnosis Alberto's esophagus without dysplasia Alberto's esophagus documented in this encounter Advance Directives * Full Code [...] 02/19/2022 2:45 PM 02/19/2022 7:48 PM This orde r reflects the patients wishes and were consensually [...] Discussed due to patient's condition Care Teams Clerical Support Specialist Relationship Specialty Start Date End Date Cindy Sinclair DO [address] [place] [address] [place] [address] PCP - General Internal Medicine 02/05/16 documented as of this encounter
--- OUTSIDE RECORDS SUMMARY | 2023-10-04 23:10 | External Medical Summary | Summary of Care ---
Author Name Unknown Organization [facility] Address [address] [facility] [place] [address] Phone [phone] Care Team Providers Care [employer] Truck Driver Name Role Phone BarrosSakshi austin Primary Care Provider [phone] Reason for Visit * Reason Onset Date Comments Nurse Telephone Follow Up 09/30/2023 Encounter Details Date Type Department Care Team (Late st Contact Info) Description 09/30/2023 2:00 PM EDT Scheduled Telephone Interventional Pain Center, [facility] [address] [place] [address] [place] Nurse Phone Call Interventional Pain [facility] 132 [facility] [place] [address] Arrived Allergies No known active allergiesdocumented as [...] neuropathy, without long-term current use of insulin ([facility]) USE UP TO 3 TIMES A DAY [...] MMIndications:DM type 2, goal HbA1c < 8% ([facility]) USE ONCE DAILY 100 Each 3 08/21/2022 4 Active OneTouch Delica Plus [id number]: Type 2 diabetes mellitus with diabetic neuropathy, without long-term current use of insulin ([facility]) Test up to four times daily 400 [...] Hypomagnesemia 11/10/2020 Recurrent major depressive disorder, in [facility] n 05/22/2020 History of ID (myocardial infarction) 05/22/2020 Primary open-angle glaucoma, left [...] Overview: From Dr. Nuñez. Will recheck through [employer] next time he is seen. Major depressive [...] range 120 to 150. Last hemoglobin A1c 7.74807 continue metformin, Lantus Rectal bleeding 02/05/2016 01/10/2017 Overview: Had EGD/colonoscopy Acute blood loss anemia 02/05/201612/27 HTN, goal below 140/90 02/05/201601/10 Neuropathy 02/05/2016 01/10/2017 AK (actinic keratosis) 01/12/201401/10 Overview: Efudex (Salina Vazquez)- 04/2014 documented as of this encounter (statuses as of 09/30/2023) Immunizations Name Administration Dates Next Due COVID-19 mRNA, LNP-s, No Pre serve, 2-Dose Series (Xipin) 04/05/2021,07/04/2020,06/13/2020 COVID-19, MRNA-LNP, 23-24, P F, 30 [...] encounter Miscellaneous Notes * Telephone Encounter - Lanny Quintero LPN [...] 12/01/2023 10:00 AM EDT Office Visit Podiatry [facility] [address] [place] [address] Melinda Stallworth DPM 400 [facility] [place] [id number] 01/27/2024 8:00 AM EDT Office Visit Cardiology [address] [place] [address] Tito House PA-C [address] [place] [address] 02/13/2024 9:30 AM EDT Office Visit Family Medicine [address] [place] [phone] Sakshi Barros, [address] [place] [address] 06/16/2024 10:20 AM EST Office Visit Dermatology [address] [place] [address] hCarline Hurst PA-C [address] [place] [address] [place] [address] Scheduled Procedures Name Priority Associated Diagnoses Date/Ti me ESOPHAGOGASTRODUODENOSCOPY ( EGD), FLEXIBLE, TRANSORAL, DIAGNOSTIC Recall Alberto's esophagus with esophagitis COLONOSCOPY FLEXIBLE PROXIMAL DIAGNOSTIC Recall Screening for colon cancer Health Maintenance Due Date Last Done Comments Alpha-1 Antitrypsin 01/16/1963 Albumin/Creatinine Ratio 06/12/2023 023, 03/06/2022, 12/04/2021, Additional history exists COVID-19 Vaccine ( season) 2023 02/24/2023, 01/08/2022, 04/05/2021, Additional history [...] Completed 08/08/2017, 01/19/2016 Zoster Vaccines Completed 01/14/2019, 0904/2018, 11/12/2018 Influenza Vaccine (FLU shot) Completed , [...] this encounter Medical Devices Implanted Type Area Telephoto Engineer Device Identifier Shelf Expiration Date Model / Serial / Lot Mesh 3dmax 3.1x5.3in t Med - [id number] Implanted:Qty: 1 on 05/02/2023 by Jean Claude Givens MD at OR [facility] Right: Groin CR BARD : DAVOL 03/25/2027 [id number] / / [id number] documented as of this encounter Advance Directives [...] Discussed due to patient's condition Care Teams Otr Company Truck Driver Relationship Specialty Start Date End Date Sakshi Barros DO [address] [place] [address] [place] [address] PCP - General Internal Medicine 02/05/16 documented as of this encounter
--- OUTSIDE RECORDS SUMMARY | 2023-10-04 23:10 | External Medical Summary | Summary of Care ---
Author Name Unknown Organization [facility] Address [address] [facility] [place] [address] Phone [phone] Care Team Providers Care Agricultural Produce Sorter Name Role Phone Sakshi Barros DO Primary Care Provider [phone] Reason for Visit * Reason Onset Date Comments Appointment 06/17/2023 Encounter Details Date Type Department Care Team (Late st Contact Info) Description 06/17/2023 Telephone Cardiology, [facility] [address] [place] [address] Tito House PA-C [address] [place] [address] Appointment Allergies No known active allergiesdocumented as of this encounter (statuses as of 09/16/2023) Medications Medication Sig Dispensed Refills Start Date [...] neuropathy, without long-term current use of insulin ([facility]) USE UP TO 3 TIMES A DAY [...] MMIndications:DM type 2, goal HbA1c < 8% ([facility]) USE ONCE DAILY 100 Each 3 3 10/27/19 24 Active OneTouch Delica Plus [id number] :Type 2 diabetes mellitus with diabetic neuropathy, without long-term current use of insulin ([facility]) Test up to four times daily 400 [...] 45 Tablet 3 4 05/28/19 25 Active metFORMIN HCl 1000 MG Oral Tablet (Glucophage)Indicati ons:Type 2 diabetes mellitus with diabetic neuropathy, unspecified ([facility]) TAKE 1 TABLET BY MOUTH TWICE A DAY WITH BREAKFAST AND DINNER 180 Tablet 3 3 07/28/19 24 Discontinu ed(Refill) Pantoprazole Sodium 40 MG Oral Tablet Delayed Release (Protonix)Indication s:Alberto's esophagus without dysplasia TAKE ONE TABLET BY MOUTH EVERY MORNING AND TAKE ONE TABLET BY MOUTH AT BEDTIME 200 Tablet 3 3 09/13/19 24 Discontinu ed(Refill) Fluticasone-Salmeter ol 250-50 MCG/ACT Inhalation Aerosol Powder Breath Activated (Advair Diskus)Indications:A sthma-COPD overlap syndrome (HCC) INHALE ONE PUFF BY MOUTH TWICE A DAY-MORNING AND BEFORE BEDTIME. RINSE MOUTH WELL AFTER EACH USE 180 Each 1 3 09/07/19 24 Discontinu ed(Refill) Lantus SoloStar 100 UNIT/ML Subcutaneous Solution Pen-injectorIndicati ons:DM type 2, goal HbA1c < 8% ([facility]) INJECT 15 UNITS UNDER THE SKIN DAILY 15 mL 3 3 07/17/19 24 Discontinu ed(Refill) Pramipexole Dihydrochloride 0.25 MG Oral Tablet (Mirapex)Indications :Restless legs syndrome TAKE ONE TABLET BY MOUTH AT BEDTIME 100 Tablet 3 2 06/20/19 24 Discontinu ed(Refill) Sertraline HCl 50 MG Oral Tablet (Zoloft)Indications: Anxiety TAKE 1 TABLET BY MOUTH EVERYDAY AT BEDTIME 90 Tablet 2 3 08/11/19 24 Discontinu ed(Refill) traMADol HCl 50 MG Oral Tablet (Ultram) Take 1 Tablet by mouth every 6 hours as needed for severe pain. 60 Tablet 3 07/09/19 24 Discontinu ed(Refill) Fluorouracil 5 % External Cream (Efudex) Apply thin layer to top of scalp and entire face (except for chin) 2x daily for 3 weeks and then send photos through [employer] [facility]/My Chart at end of treatment. 40 g 1 4 06/23/19 24 Discontinu ed(End of Procedure) Potassium Chloride Angélica ER 20 MEQ Oral Tablet Extended Release TAKE ONE TABLET BY MOUTH TWICE A DAY WITH MORNING AND EVENING MEALS 200 Tablet 1 4 07/09/19 24 Discontinu ed(Refill) documented as of this encounter (statuses as of 09/16/2023) Active Problems Problem Noted Date Diagnosed Date Type 2 diabetes mellitus wit h diabetic neuropathy, without long-term current use of insulin 07/09/2023 Chronic right shoulder pain 08/05/2022 Last Assessment & Plan: Has an appointment to go see Dr. Mendoza, his orthopedic surgeon, next week -continue ice Diabetic polyneuropathy asssreafin ciated with type 2 diabetes mellitus 03/06/2022 [...] Statin History of cholecystectomy 10/15/2021 Atherosclerosis of [place] ronary artery without angina pectoris 05/29/2021 Last Assessment & Plan: Continue statin, metoprolol, lisinopril Not on aspirin due to GI bleeding Occupational exposure to other air contaminants 11/21/2020 Hypomagnesemia 11/10/2020 [facility] 05/22/2020 History of [place] (myocardial infarction) 05/22/2020 Primary open-angle glaucoma, left [...] as of this encounter (statuses as of 09/16/2023) Resolved Problems Problem Noted Date Diagnosed Date Resolved Date Absolute anemia 02/21/2021 06/12/2022 Abnormal thyroid blood test 03/30/2020 11/21/2020 Overview: From Dr. Nuñez. Will recheck through [employer] next time he is seen. Major depressive [...] range 120 to 150. Last hemoglobin A1c 7.51700 continue metformin, Lantus Rectal bleeding 02/05/2016 01/10/2017 Overview: Had EGD/colonoscopy Acute blood loss anemia 02/05/201612/27 HTN, goal below 140/90 02/05/201601/10 Neuropathy 02/05/2016 01/10/2017 AK (actinic keratosis) 01/12/201401/10 Overview: Efudex (Salina Vazquez)- 04/2014 documented as of this encounter (statuses as of 09/16/2023) Immunizations Name Administration Dates Next Due COVID-19 mRNA, LNP-s, No Pre serve, 2-Dose Series ([employer]) 04/05/2021,07/04/2020,06/13/2020 COVID-19, MRNA-LNP, 23-24, P F, 30 [...] encounter Miscellaneous Notes * Telephone Encounter - Tripp Ruiz OSA - 06/17/2023 1:01 PM EST Patient is ordered a: NM MYOCARD PERF IMG SPECT MULT STUDIES WITH PHARM INTERV [[id number]] (Order [id number] Please call patient to schedule, thank you. documented in this encounter Plan of Treatment Upcoming Encounters Date Type Department Care Team (Late st Contact Info) Description 09/30/2023 2:00 PM EDT Scheduled Telephone Interventional Pain Center, [facility] [address] [place] [address] [place], Nurse Phone Call Interventional Pain [facility] [address] [place] [address] 12/01/2023 10:00 AM EDT Office Visit Podiatry [facility] [address] [place] [address] Melinda Stallworth, DPM 400 [facility] [place] [address] 01/27/2024 8:00 AM EDT Office Visit Cardiology [address] [place] [address] Tito House PAHectorC [address] [place] [address] 02/13/2024 9:30 AM EDT Office Visit Family Medicine [address] [place] [phone] Sakshi Barros [address] [place] [address] 06/16/2024 10:20 AM EST Office Visit Dermatology [address] [place] [address] Charline Hurst PA-C [address] [place] [address] [place] [address] Scheduled Procedures Name Priority Associated Diagnoses Date/Ti [...] Completed 08/08/2017, 01/19/2016 Zoster Vaccines Completed 01/14/2019, 090 04/2018, 11/12/2018 Influenza Vaccine (FLU shot) Completed [...] this encounter Medical Devices Implanted Type Area Cracking Unit Operator Device Identifier Shelf Expiration Date Model / Serial / Lot Mesh 3dmax 3.1x5.3in [facility] Med - [id number] Implanted:Qty: 1 on 05/02/2023 by Jean Claude Givens MD at OR [facility] Right: Groin CR BARD : DAVOL 03/25/2027 [id number] / / [id number] documented as of this encounter Advance Directives [...] Discussed due to patient's condition Care Teams Agricultural Produce Sorter Relationship Specialty Start Date End Date Sakshi Barros DO [address] [place] [address] [place] [address] PCP - General Internal Medicine 02/05/16 documented as of this encounter
--- OUTSIDE RECORDS SUMMARY | 2023-10-04 23:10 | External Medical Summary | Summary of Care ---
Author Name Unknown Organization [facility] Address [address] [facility] [place] [address] Phone [phone] Care Team Providers Care Leather Tacker Name Role Phone Cindy Sinclair DO Primary Care Provider [phone] Reason for Visit * Reason Comments Medication Refill Encounter Details Date Type Department Care Team (Late st Contact Info) Description 09/07/2023 Refill Family Medicine [address] [place] [phone] Cindy Sinclair DO [address] [place] [address] [place] [phone] Asthma-COPD overlap syndrome (HCC) Allergies No known active allergiesdocumented as of this encounter (statuses as of 09/09/2023) Medications Medication Sig Dispensed Refills Start Date End Date Status M-VIT PO TABS one a day 0 Active VITAMIN B 12 100 MCG PO LOZG one a day 0 Active acetaminophen (TYLENOL) 325 MG TabletIndications:ba ck pain Take 2 Tablets by mouth every 6 hours as needed for Pain. 0 Active Magnesium Oxide 400 (240 Mg) MG Oral Tablet Take 1 Tablet by mouth in the morning. 0 Active Amoxicillin 500 MG Oral Capsule (Amoxil)Indications: Status post total left knee replacement TAKE 4 CAPSULES BY MOUTH 1 HOUR PRIOR TO APPOINTMENT 4 Capsule 1 2 Active Vitamin D3 50 MCG (2000 UT) Oral Capsule Take 1 Capsule by mouth in the morning. 0 Active Probiotic 1-250 BILLION-MG Oral Capsule Take by mouth. 0 Active OneTouch Verio In Vitro Strip (Glucose [...] mg Oral Daily(AM),Indications: cholesterol, Reported on 10/28/2022 Pantoprazole Sodium 40 MG Oral Tablet Delayed Release (Protonix)Indication s:Alberto's esophagus without dysplasia TAKE ONE TABLET BY MOUTH EVERY MORNING AND TAKE ONE TABLET BY MOUTH AT BEDTIME 200 Tablet 3 3 09/27/19 24 Active Additional Information Patient taking differently:40 mg Oral BID (.AM/PM),Indications: stomach, Reported on 10/28/2022 Insulin Pen Needle 32G X 4 MMIndications:DM type 2, goal HbA1c < 8% ([facility]) USE ONCE DAILY 100 Each 3 3 10/27/19 24 Active OneTouch Delica Plus [id number] :Type 2 diabetes mellitus with diabetic neuropathy, without long-term current use of insulin ([facility]) Test up to four times daily 400 Each 1 3 Active Aspirin 81 MG Oral Tablet Delayed Release (Aspirin 81) Take 1 Tablet by mouth in the morning. 0 Active Metamucil Fiber 51.7 % Oral Packet (Psyllium) Take by mouth. 0 Active Latanoprost 0.005 % Ophthalmic Solution (Xalatan) [...] stenosis of lumbar region with neurogenic claudication Take 1 Tablet by mouth every 6 hours as needed for Severe pain. 60 Tablet 0 4 Active metFORMIN HCl 1000 MG Oral [...] 180 Each 1 4 09/09/19 25 Active Fluticasone-Salmeter ol 250-50 MCG/ACT Inhalation Aerosol Powder Breath Activated (Advair Diskus)Indications:A sthma-COPD overlap syndrome (HCC) INHALE ONE PUFF BY MOUTH TWICE A DAY-MORNING AND BEFORE BEDTIME. RINSE MOUTH WELL AFTER EACH USE 180 Each 1 3 09/07/19 24 Discontinu ed(Refill) documented as of this encounter (statuses as of 09/09/2023) Active Problems Problem Noted Date Diagnosed Date [...] Statin History of cholecystectomy 10/15/2021 Atherosclerosis of [place] co ronary artery without angina pectoris 05/29/2021 Last Assessment & Plan: Continue statin, metoprolol, lisinopril Not on aspirin due to GI bleeding Occupational exposure to other air contaminants 11/21/2020 Hypomagnesemia 11/10/2020 Recurrent major depressive disorder, in [place] 05/22/2020 History of [place] (myocardial infarction) 05/22/2020 Primary open-angle glaucoma, left [...] as of this encounter (statuses as of 09/09/2023) Resolved Problems Problem Noted Date Diagnosed Date Resolved Date Absolute anemia 02/21/2021 06/12/2022 Abnormal thyroid blood test 03/30/2020 11/21/2020 Overview: From Dr. Nuñez. Will recheck through [employer] next time he is seen. Major depressive [...] range 120 to 150. Last hemoglobin A1c 7.19862 continue metformin, Lantus Rectal bleeding 02/05/2016 01/10/2017 Overview: Had EGD/colonoscopy Acute blood loss anemia 02/05/201612/27 HTN, goal below 140/90 02/05/201601/10 Neuropathy 02/05/2016 01/10/2017 AK (actinic keratosis) 01/12/201401/10 Overview: Efudex (Salina Vazquez)- 04/2014 documented as of this encounter (statuses as of 09/09/2023) Immunizations Name Administration Dates Next Due COVID-19 mRNA, LNP-s, No Pre serve, 2-Dose Series ([employer]) 04/05/2021,07/04/2020,06/13/2020 COVID-19, MRNA-LNP, 23-24, P F, 30 [...] encounter Miscellaneous Notes * Telephone Encounter - Cindy Sinclair DO - 09/09/2023 8:33 AM EDTSigned Prescriptions: Disp Refills Fluticasone-Salmeterol 250-50 MCG/ACT Inha*180 Ea*1 Sig: INHALE ONE PUFF BY MOUTH TWICE A DAY-MORNING AND BEFORE BEDTIME. RINSE MOUTH WELL AFTER EACH USE Authorizing Provider: CINDY SINCLAIR * Telephone Encounter - Sita Waite [facility] - 09/08/2023 3:09 PM EDTPending Prescriptions: Disp Refills Fluticasone-Salmeterol 250-50 MCG/ACT Inha*180 Ea*1 Sig: INHALE ONE PUFF BY MOUTH TWICE A DAY-MORNING AND BEFORE BEDTIME. RINSE MOUTH WELL AFTER EACH USE * Telephone Encounter - Sita Waite [facility] - 09/08/2023 3:05 PM EDT Unable to authorize proactive medication refills at this time. Part of the criteria used for refill authorization was not satisfied. Patients using a daily maintenance inhaler should have an active short-acting beta agonist rescue inhaler. MyG sent to patient to determine if he needs a new prescription for albuterol. Please approve if appropriate. Thanks, Sita Waite, PharmD Clinical Pharmacist [facility] ([facility]) (formerly Telepharmacy) [phone] 09/08/2023 3:07 PM documented in this encounter Plan of Treatment Upcoming Encounters Date Type Department Care Team (Late st Contact Info) Description 09/30/2023 2:00 PM EDT Scheduled Telephone Interventional Pain Center, [facility] [address] [facility] [place] [address] [place] Nurse Phone Call Interventional Pain [facility] [address] [place] [address] 12/01/2023 10:00 AM EDT Office Visit Podiatry [facility] [address] [place] [address] Melinda Stallworth, DPM [address] [place] [address] 01/27/2024 8:00 AM EDT Office Visit Cardiology [address] [place] [address] Tito House, DORIS [address] [place] [address] 02/13/2024 9:30 AM EDT Office Visit Family Medicine [address] [place] [phone] Cindy Sinclair [address] [place] [address] 06/16/2024 10:20 AM EST Office Visit Dermatology [address] [place] [address] Charline Hurst PA-C [address] [place] [address] [place] [address] Scheduled Procedures Name Priority Associated Diagnoses Date/Ti [...] this encounter Medical Devices Implanted Type Area Camera Repairman Device Identifier Shelf Expiration Date Model / Serial / Lot Mesh 3dmax 3.1x5.3in t Med - [id number] Implanted:Qty: 1 on 05/02/2023 by Jean Claude Givens MD at OR [facility] Right: Chhayain JACOB BARD : DAVOL 03/25/2027 [id number] / / [id number] documented as of this encounter Visit Diagnoses Diagnosis Asthma-COPD overlap syndrome (HCC) documented in this encounter Advance Directives Latest Code Status on File Code Status Date Activated Date Inactivated Comments Full Code 05/02/2023 7:51 AM 05/02/2023 2:28 PM This or shell reflects the patients wishes and were consensually agreed upon. Question Answer Comments Discussion of Advance Directives occurred with: Patient Code Status History Code Status Date Activated Date Inactivated Comments Full Code 05/02/2023 7:31 AM 05/02/2023 7:51 AM This or shell reflects the patients wishes and were consensually agreed upon. Question Answer Comments Discussion of Advance Directives occurred with: Patient Full Code 02/19/2022 2:45 PM 02/19/2022 7:48 PM Thi s order reflects the patients wishes and were consensually agreed upon. Question Answer Comments Discussion of Advance Directives occurred with: Not Discussed due to patient's condition Full Code 02/19/2022 1:50 PM 02/19/2022 2:45 PM Thi s order reflects the patients wishes and were consensually agreed upon. Question Answer Comments Discussion of Advance Directives occurred with: Not Discussed due to patient's condition Care Teams Leather Tacker Relationship Specialty Start Date End Date Cindy Sinclair DO [address] [place] [address] [place] [address] PCP - General Internal Medicine 02/05/16 documented as of this encounter
--- OUTSIDE RECORDS SUMMARY | 2023-10-04 23:11 | External Medical Summary | Summary of Care ---
Author Name Unknown Organization [facility] Address [address] [facility] [place] [address] Phone [phone] Care Team Providers Care Maintenance Controller Name Role Phone Sakshi Barros DO Primary Care Provider [phone] Reason for Visit * Reason Onset Date Comments Health Maintenance 07/30/2023 Encounter Details Date Type Department Care Team (Late st Contact Info) Description 07/30/2023 Telephone Family Medicine [address] [place] [address] Sakshi Barros DO [address] [place] [address] [place] [address] Health Maintenance Allergies No known active allergiesdocumented as of this encounter (statuses as of 07/30/2023) Medications Medication Sig Dispensed Refills Start Date End Date Status M-VIT PO TABS one a day 0 Active VITAMIN B 12 100 MCG PO LOZG one a day 0 Active acetaminophen (TYLENOL) 325 MG TabletIndications:morgan k pain Take 2 Tablets by mouth every 6 hours as needed for Pain. 0 Active Magnesium Oxide 400 (240 Mg) MG Oral Tablet Take 1 Tablet by mouth in the morning. 0 Active Amoxicillin 500 MG Oral Capsule (Amoxil)Indications:S [...] BY MOUTH AT BEDTIME 200 Tablet 3 09/09/2022 4 Active Additional Information Patient taking differently:40 mg Oral BID (.AM/PM),Indications: stomach, Reported on 10/28/2022 Fluticasone-Salmetero l 250-50 MCG/ACT Inhalation Aerosol Powder Breath Activated (Advair Diskus)Indications:As thma-COPD overlap syndrome (HCC) INHALE ONE PUFF BY MOUTH TWICE A DAY-MORNING AND BEFORE BEDTIME. RINSE MOUTH WELL AFTER EACH USE 180 Each 1 09/06/2022 4 Active Insulin Pen Needle 32G X 4 MMIndications:DM type 2, goal HbA1c < 8% (HCC) USE ONCE DAILY 100 Each 3 08/21/2022 4 Active Sertraline HCl 50 MG Oral Tablet (Zoloft)Indications:A nxiety TAKE 1 TABLET BY MOUTH EVERYDAY AT BEDTIME 90 Tablet 2 11/16/2022 Active OneTouch Delica Plus [id number]: Type 2 diabetes mellitus with diabetic neuropathy, without long-term current use of insulin (HCC) Test up to four times daily 400 [...] mouth daily. 90 Tablet 3 07/10/2023 Active Lantus SoloStar 100 UNIT/ML Subcutaneous Solution Pen-injectorIndicatio ns:DM type 2, goal HbA1c < 8% (HCC) INJECT 15 UNITS UNDER THE SKIN DAILY 15 mL 2 07/17/2023 5 Active traMADol HCl 50 MG Oral Tablet (Ultram)Indications:S brodie stenosis of lumbar region with neurogenic claudication Take 1 Tablet by mouth every 6 hours as needed for Severe pain. 60 Tablet 0 07/18/2023 Active metFORMIN HCl 1000 MG Oral Tablet (Glucophage)Indicatio ns:Type 2 diabetes mellitus with diabetic neuropathy, unspecified (HCC) TAKE 1 TABLET BY MOUTH TWICE A DAY WITH BREAKFAST AND DINNER 180 Tablet 3 07/28/2023 Active documented as of this encounter (statuses as of 07/30/2023) Active Problems Problem Noted Date Diagnosed Date [...] Statin History of cholecystectomy 10/15/2021 Atherosclerosis of [place] co ronary artery without angina pectoris 05/29/2021 Last Assessment & Plan: Continue statin, metoprolol, lisinopril Not on aspirin due to GI bleeding Occupational exposure to other air contaminants 11/21/2020 Hypomagnesemia 11/10/2020 Recurrent major depressive disorder, in [facility] n 05/22/2020 History of [place] (myocardial infarction) 05/22/2020 Primary open-angle glaucoma, left [...] as of this encounter (statuses as of 07/30/2023) Resolved Problems Problem Noted Date Diagnosed Date Resolved Date Absolute anemia 02/21/2021 06/12/2022 Abnormal thyroid blood test 03/30/2020 11/21/2020 Overview: From Dr. Nuñez. Will recheck through [employer] next time he is seen. Major depressive [...] range 120 to 150. Last hemoglobin A1c 7.64783 continue metformin, Lantus Rectal bleeding 02/05/2016 01/10/2017 Overview: Had EGD/colonoscopy Acute blood loss anemia 02/05/201612/27 HTN, goal below 140/90 02/05/201601/10 Neuropathy 02/05/2016 01/10/2017 AK (actinic keratosis) 01/12/201401/10 Overview: Efudex (Salina Vazquez)- 04/2014 documented as of this encounter (statuses as of 07/30/2023) Immunizations Name Administration Dates Next Due COVID-19 mRNA, LNP-s, No Pre serve, 2-Dose Series ([employer]) 04/05/2021,07/04/2020,06/13/2020 COVID-19, MRNA-LNP, 23-24, P F, 30 [...] encounter Miscellaneous Notes * Telephone Encounter - Sully Mon LPN - 07/30/2023 10:41 AM EDT Care Gaps Comprehensive Care Outreach Last Office/Telemedicine Visit: 07/09/2023 (in office), Visit date not found (telemedicine) Next Office Visit: 02/13/2024 Hemoglobin AIC Results: Lab Results Component Value Date/Time HEMOGLOBIN A1C - [facility] 7.7 (H) 06/17/2023 12:09 PM HEMOGLOBIN A1C - [facility] 7.7 (H) 12/25/2022 12:15 PM HEMOGLOBIN A1C - [facility] 7.9 (H) 06/12/2022 11:08 AM HEMOGLOBIN A1C - [facility] 7.7 (H) 08/11/2018 12:02 PM HEMOGLOBIN A1C - [facility] 6.3 (H) 01/07/2018 01:52 PM HEMOGLOBIN A1C - [facility] 5.8 02/05/2016 08:55 AM BP Readings from Last 1 Encounters: 07/09/23 126/60 Reviewed Health Maintenance below: Health Maintenance Topic Date Due Alpha-1 Antitrypsin Never done Depression Screening 02/21/2022 Albumin/Creatinine Ratio 06/12/2023 Diabetic Eye Exam 09/25/2023 HbA1c 12/16/2023 Diabetic Foot Exam 12/26/2023 labs Eye may Care Gap Outreach Action Taken: Left message documented in this encounter Plan of Treatment Upcoming Encounters Date Type Department Care Team (Latest Contact Info) Description 08/26/2023 7:15 AM EDT Cardiac Studies Cardiac Studies, [facility] [address] [place] [address] 08/26/2023 9:15 AM EDT Imaging [facility] 2nd Floor Cardiology, [place] [address] [place] [address] Gw, Excess Time Radiology [address] [place] [address] 08/29/2023 9:40 AM EDT Office Visit Podiatry [facility] [address] [place] [address] Melinda Stallworth, DPM [address] [place], [place] [address] [address] 10/01/2023 10:55 AM EDT Hospital Encounter [facility], Operating Room [facility] [address] [place] [phone] David Morales DO [address] [place] [phone] 10/01/2023 10:55 AM EDT - 10/01/2023 11:20 AM EDT Surgery OR [facility], Operating Room [facility] [address] [place] [phone] David Morales DO [address] [place] [phone] INJECTION SPINE LUMBAR OR SACRAL 02/13/2024 9:30 AM EDT Office [address] Medicine [address] [phone] Sakshi Barros [address] [place] [address] 06/16/2024 10:20 AM EST Office Visit Dermatology [address] [place] [address] Charline Hurst, DORIS [address] [place] [address] [place] [address] Scheduled Procedures Name Priority Associated Diagnoses Date/Ti me INJECTION SPINE LUMBAR OR SACRAL Spinal stenosis of lumbar region with neurogenic claudication 10/01/2023 10:55 AM EDT ESOPHAGOGASTRODUODENOSCOPY ( EGD), FLEXIBLE, TRANSORAL, DIAGNOSTIC Recall Alberto's esophagus with esophagitis COLONOSCOPY FLEXIBLE PROXIMA L DIAGNOSTIC Recall Screening for colon cancer Health Maintenance Due Date Last Done Comments Alpha-1 Antitrypsin 01/16/1963 Depression Screening 02/21/2022 02/21/2021 Albumin/Creatinine Ratio 06/12/2023 023, 03/06/2022, 12/04/2021, Additional [...] this encounter Medical Devices Implanted Type Area Subassembly Supervisor Device Identifier Shelf Expiration Date Model / Serial / Lot Mesh 3dmax 3.1x5.3in t Med - [id number] Implanted:Qty: 1 on 05/02/2023 by Jean Claude Givens MD at OR [facility] Right: Brittani JAMES BARD : DAVOL 03/25/2027 [id number] / / [id number] documented as of this encounter Advance Directives Latest Code Status [...] Discussed due to patient's condition Care Teams Maintenance Controller Relationship Specialty Start Date End Date Sakshi Barros DO [address] [place] [address] [place] [phone] PCP - General Internal Medicine 02/05/16 documented as of this encounter
--- OUTSIDE RECORDS SUMMARY | 2023-10-04 23:11 | External Medical Summary | Summary of Care ---
Author Name Unknown Organization [facility] Address [address] [place] [address] Phone [phone] Care Team Providers Care Health Care Consultant Name Role Phone Sakshi Barros Primary Care Provider [phone] Reason for Visit * Reason Onset Date Comments FYI 08/21/2023 Encounter Details Date Type Department Care Team (Late st Contact Info) Description 08/21/2023 Telephone Care Coordination and Integration [address], [place] [phone] Lynne Hermosillo RN [address], [place] [phone] FYI Allergies No known active allergiesdocumented as of this encounter (statuses as of 08/26/2023) Medications Medication Sig Dispensed Refills Start Date [...] MMIndications:DM type 2, goal HbA1c < 8% ([facility]) USE ONCE DAILY 100 Each 3 08/21/2022 4 Active OneTouch Delica Plus [id number]: Type 2 diabetes mellitus with diabetic neuropathy, without long-term current use of insulin ([facility]) Test up to four times daily 400 [...] AT BEDTIME 90 Tablet 2 08/12/2023 Active documented as of this encounter (statuses as of 08/26/2023) Active Problems Problem Noted Date Diagnosed Date [...] Statin History of cholecystectomy 10/15/2021 Atherosclerosis of [place] co ronary artery without angina pectoris 05/29/2021 Last Assessment & Plan: Continue statin, metoprolol, lisinopril Not on aspirin due to GI bleeding Occupational exposure to other air contaminants 11/21/2020 Hypomagnesemia 11/10/2020 [facility] 05/22/2020 History of [place] (myocardial infarction) 05/22/2020 Primary open-angle glaucoma, left [...] as of this encounter (statuses as of 08/26/2023) Resolved Problems Problem Noted Date Diagnosed Date Resolved Date Absolute anemia 02/21/2021 06/12/2022 Abnormal thyroid blood test 03/30/2020 11/21/2020 Overview: From Dr. Nuñez. Will recheck through [employer] next time he is seen. Major depressive [...] range 120 to 150. Last hemoglobin A1c 7.28671 continue metformin, Lantus Rectal bleeding 02/05/2016 01/10/2017 Overview: Had EGD/colonoscopy Acute blood loss anemia 02/05/201612/27 HTN, goal below 140/90 02/05/201601/10 Neuropathy 02/05/2016 01/10/2017 AK (actinic keratosis) 01/12/201401/10 Overview: Efudex (Salina [employer])- 04/2014 documented as of this encounter (statuses as of 08/26/2023) Immunizations Name Administration Dates Next Due COVID-19 mRNA, LNP-s, No Pre serve, 2-Dose Series ([employer]) 04/05/2021,07/04/2020,06/13/2020 COVID-19, MRNA-LNP, 23-24, P F, 30 [...] encounter Miscellaneous Notes * Telephone Encounter - Chelsy Main RN - 08/26/2023 2:21 PM EDT No answer, no mail box. If pt calls back have him schedule an appt with any provider to discuss concerns * Telephone Encounter - Lynne Hermosillo RN - 08/21/2023 4:22 PM EDT THIS PATIENT IS NOT ACTIVE WITH CASE MANAGEMENT. Received voicemail from patient. Reports he has several issues he needs to discuss. Requesting a call back. Please contact patient. Thank you. documented in this encounter Plan of Treatment Upcoming Encounters Date Type Department Care Team (Latest Contact Info) Description 08/29/2023 9:40 AM EDT Office Visit Podiatry [facility] [address] [facility] [place] [address] Melinda Stallworth DPM [address] [facility] [place] [address] 09/05/2023 9:40 AM EDT Hospital Encounter [facility], Operating Room [facility] [address] [place] [phone] David Morales, DO [address] [place] [phone] 09/05/2023 9:40 AM EDT - 09/05/2023 10:05 AM EDT Surgery OR [facility], Operating Room [facility] [address] [place] [phone] David Morales, DO [address] [place] [phone] INJECTION SPINE LUMBAR OR SACRAL 02/13/2024 9:30 AM EDT Office Visit Family Medicine [address] [place] [phone] Sakshi Barros, [address] [place] [address] 06/16/2024 10:20 AM EST Office Visit Dermatology [address] [place] [address] Charline Hurst PA-C [address] [place] [address] [place] [address] Scheduled Procedures Name Priority Associated Diagnoses Date/Ti me INJECTION SPINE LUMBAR OR SACRAL Spinal stenosis of lumbar region with neurogenic claudication 09/05/2023 9:40 AM EDT ESOPHAGOGASTRODUODENOSCOPY ( EGD), FLEXIBLE, TRANSORAL, [...] this encounter Medical Devices Implanted Type Area Health Care Consultant Device Identifier Shelf Expiration Date Model / Serial / Lot Mesh 3dmax 3.1x5.3in [facility] Med - [id number] Implanted:Qty: 1 on 05/02/2023 by Jean Claude Givens MD at OR [facility] Right: Groin CR BARD : DAVOL 03/25/2027 [id number] / / [id number] documented as of this encounter Advance Directives [...] Discussed due to patient's condition Care Teams Health Care Consultant Relationship Specialty Start Date End Date Sakshi Barros DO [address] [place] [address] [place] [address] PCP - General Internal Medicine 02/05/16 documented as of this encounter
--- OUTSIDE RECORDS SUMMARY | 2023-10-04 23:11 | External Medical Summary | Summary of Care ---
Author Name Unknown Organization [facility] Address [address] [place] [address] Phone [phone] Care Team Providers Care Search Specialist Name Role Phone Sakshi Barros Primary Care Provider [phone] Reason for Visit * Reason Onset Date Comments FYI 08/12/2023 Encounter Details Date Type Department Care Team (Late st Contact Info) Description 08/12/2023 Telephone Care Coordination and Integration [address], [place] [phone] Lynne Hermosillo RN [address], [place] [phone] FYI Allergies No known active allergiesdocumented as of this encounter (statuses as of 08/15/2023) Medications Medication Sig Dispensed Refills Start Date [...] type 2, goal HbA1c < 8% ([facility]) USE ONCE DAILY 100 Each 3 08/21/2022 4 Active OneTouch Delica Plus [id number]: Type 2 diabetes mellitus with diabetic neuropathy, without long-term current use of insulin ([facility]) Test up to four times daily [...] as of this encounter (statuses as of 08/15/2023) Active Problems Problem Noted Date Diagnosed Date [...] Statin History of cholecystectomy 10/15/2021 Atherosclerosis of pokagon co ronary artery without angina pectoris 05/29/2021 Last Assessment & Plan: Continue statin, metoprolol, lisinopril Not on aspirin due to GI bleeding Occupational exposure to other air contaminants 11/21/2020 Hypomagnesemia 11/10/2020 [facility] 05/22/2020 History of [place] (myocardial infarction) 05/22/2020 Primary open-angle glaucoma, left [...] as of this encounter (statuses as of 08/15/2023) Resolved Problems Problem Noted Date Diagnosed Date Resolved Date Absolute anemia 02/21/2021 06/12/2022 Abnormal thyroid blood test 03/30/2020 11/21/2020 Overview: From Dr. Nuñez. Will recheck through [employer] next time he is seen. Major [...] range 120 to 150. Last hemoglobin A1c 7.63612 continue metformin, Lantus Rectal bleeding 02/05/2016 01/10/2017 Overview: Had EGD/colonoscopy Acute blood loss anemia 02/05/201612/27 HTN, goal below 140/90 02/05/201601/10 Neuropathy 02/05/2016 01/10/2017 AK (actinic keratosis) 01/12/201401/10 Overview: Efudex (Salina Vazquez)- 04/2014 documented as of this encounter (statuses as of 08/15/2023) Immunizations Name Administration Dates Next Due COVID-19 mRNA, LNP-s, No Pre serve, 2-Dose Series ([employer]) 04/05/2021,07/04/2020,06/13/2020 COVID-19, MRNA-LNP, 23-24, P F, 30 [...] Telephone Encounter - Chelsy Main RN - 08/15/2023 10:40 AM EDT Will start an encounter in the 's chart about this * Telephone Encounter - Lynne Hermosillo RN - 08/15/2023 10:28 AM EDT THIS PATIENT IS NOT ACTIVE WITH CASE MANAGEMENT. Please follow up. CM received another voicemail from patient - requesting a return call. Wishes to get his established with a [facility] provider, and has "a few other questions". Thank you. * Telephone Encounter - Lynne Hermosillo RN - 08/12/2023 11:51 AM EDT THIS PATIENT IS NOT ACTIVE WITH CASE MANAGEMENT. Received voicemail from patient. Has a few questions -trying to get a doctor for spouse with our [employer] group. -Dr Barros told him he should have a walker with a seat? Asking if insurance will cover, and can we order that? Please call patient. documented in this encounter Plan of Treatment Upcoming Encounters Date Type Department Care Team (Latest Contact Info) Description 08/26/2023 7:15 AM EDT Cardiac Studies Cardiac Studies, [facility] [address] [place] [address] 08/26/2023 9:15 AM EDT Imaging [facility] 2nd Floor Cardiology, [place] [address] [place] [address] Gw, Excess Time Radiology [address] [place] [address] 08/29/2023 9:40 AM EDT Office Visit Podiatry [facility] [address] [place] [address] Melinda Stallworth, DPGermán [address] [place] [address] 09/24/2023 9:40 AM EDT Hospital Encounter [facility], Operating Room [facility] [address] [place] [phone] David Morales DO [address] [place] [phone] 09/24/2023 9:40 AM EDT - 09/24/2023 10:05 AM EDT Surgery OR [facility], Operating Room [facility] [address] [place] [phone] David Morales DO [address] [place] [phone] INJECTION SPINE LUMBAR OR SACRAL 02/13/2024 9:30 AM EDT Office Visit Family Medicine [address] [place] [phone] Sakshi Barros [address] [place] [address] 06/16/2024 10:20 AM EST Office Visit Dermatology [address] [place] [address] Charline Hurst PA-C [address] [place] [address] [place] [address] Scheduled Procedures Name Priority Associated Diagnoses Date/Ti me INJECTION SPINE LUMBAR OR SACRAL Spinal stenosis of lumbar region with neurogenic claudication 09/24/2023 9:40 AM EDT ESOPHAGOGASTRODUODENOSCOPY ( EGD), FLEXIBLE, [...] Zoster Vaccines Completed 01/14/2019, 090 04/2018, 11/12/2018 COVID-19 Vaccine Completed 02/24/2023, , [...] this encounter Medical Devices Implanted Type Area Garbage Collection Supervisor Device Identifier Shelf Expiration Date Model / Serial / Lot Mesh 3dmax 3.1x5.3in t Med - [id number] Implanted:Qty: 1 on 05/02/2023 by Jean Claude Givens MD at OR [facility] Right: Brittani JAMES BARD : CHAY 03/25/2027 [id number] / / [id number] documented as of this encounter Advance Directives [...] Discussed due to patient's condition Care Teams Search Specialist Relationship Specialty Start Date End Date BarrosSakshi austin DO [address] [place] [address] [place] [phone] PCP - General Internal Medicine 02/05/16 documented as of this encounter
--- OUTSIDE RECORDS SUMMARY | 2023-10-04 23:11 | External Medical Summary | Summary of Care ---
Author Name Unknown Organization [facility] Address [address] [facility] [place] [address] Phone [phone] Care Team Providers Care Dental Office Manager Name Role Phone Sakshi Barros DO Primary Care Provider + [phone] Reason for Visit * Reason Onset Date Comments Medication Refill 07/28/2023 Encounter Details Date Type Department Care Team (Late st Contact Info) Description 07/28/2023 Refill Family Medicine [address] [place] [phone] Sakshi Barros DO [address] [place] [address] [place] [address] Type 2 diabetes mellitus with diabetic neuropathy, unspecified (HCC) Allergies No known active allergiesdocumented as of this encounter (statuses as of 07/28/2023) Medications Medication Sig Dispensed Refills Start Date [...] Oral BID (.AM/PM),Indications: stomach, Reported on 10/28/2022 Fluticasone-Salmeter ol 250-50 MCG/ACT Inhalation Aerosol Powder Breath Activated (Advair Diskus)Indications:A sthma-COPD overlap syndrome (HCC) INHALE ONE PUFF BY MOUTH TWICE A DAY-MORNING AND BEFORE BEDTIME. RINSE MOUTH WELL AFTER EACH USE 180 Each 1 3 09/06/19 24 Active Insulin Pen Needle 32G X 4 MMIndications:DM type 2, goal HbA1c < 8% ([facility]) USE ONCE DAILY 100 Each 3 3 10/27/19 24 Active Sertraline HCl 50 MG Oral Tablet (Zoloft)Indications: Anxiety TAKE 1 TABLET BY MOUTH EVERYDAY AT BEDTIME 90 Tablet 2 3 Active OneTouch Delica Plus [id number] :Type 2 diabetes mellitus with diabetic neuropathy, [...] mouth daily. 90 Tablet 3 4 Active Lantus SoloStar 100 UNIT/ML Subcutaneous Solution Pen-injectorIndicati [...] AND DINNER 180 Tablet 3 4 Active metFORMIN HCl 1000 MG Oral Tablet (Glucophage)Indicati ons:Type 2 diabetes mellitus with diabetic neuropathy, unspecified (HCC) TAKE 1 TABLET BY MOUTH TWICE A DAY WITH BREAKFAST AND DINNER 180 Tablet 3 3 07/28/19 24 Discontinu ed(Refill) documented as of this encounter (statuses as of 07/28/2023) Active Problems Problem Noted Date Diagnosed Date [...] Statin History of cholecystectomy 10/15/2021 Atherosclerosis of inupiat co ronary artery without angina pectoris 05/29/2021 Last Assessment & Plan: Continue statin, metoprolol, lisinopril Not on aspirin due to GI bleeding Occupational exposure to other air contaminants 11/21/2020 Hypomagnesemia 11/10/2020 Recurrent major depressive disorder, in [facility] 05/22/2020 History of [place] (myocardial infarction) 05/22/2020 Primary open-angle glaucoma, left [...] as of this encounter (statuses as of 07/28/2023) Resolved Problems Problem Noted Date Diagnosed Date Resolved Date Absolute anemia 02/21/2021 06/12/2022 Abnormal thyroid blood test 03/30/2020 11/21/2020 Overview: From Dr. Nuñez. Will recheck through [employer] next time he is seen. Major depressive [...] range 120 to 150. Last hemoglobin A1c 7.38176 continue metformin, Lantus Rectal bleeding 02/05/2016 01/10/2017 Overview: Had EGD/colonoscopy Acute blood loss anemia 02/05/201612/27 HTN, goal below 140/90 02/05/201601/10 Neuropathy 02/05/2016 01/10/2017 AK (actinic keratosis) 01/12/201401/10 Overview: Efudex (Salina Vazquez)- 04/2014 documented as of this encounter (statuses as of 07/28/2023) Immunizations Name Administration Dates Next Due COVID-19 mRNA, LNP-s, No Pre serve, 2-Dose Series (GMG33) 04/05/2021,07/04/2020,06/13/2020 COVID-19, MRNA-LNP, 23-24, P F, 30 MCG/0.3 mL, 12 YRS AND ABOVE, IM (Tomveyi Bidamon-Comirnat) 02/24/2023 Pneumococcal Conjugate Vacc, 13 Valent (Prevnar) [...] encounter Miscellaneous Notes * Telephone Encounter - Salty Brito MD - 07/28/2023 12:01 PM EDTSigned Prescriptions: Disp Refills metFORMIN HCl 1000 MG Oral Tablet (Glucoph*180 Ta*3 Sig: TAKE 1 TABLET BY MOUTH TWICE A DAY WITH BREAKFAST AND DINNER Authorizing Provider: SALTY BRITO * Telephone Encounter - Chelsy Main RN - 07/28/2023 11:58 AM EDTPending Prescriptions: Disp Refills metFORMIN HCl 1000 MG Oral Tablet (Glucoph*180 Ta*3 Sig: TAKE 1 TABLET BY MOUTH TWICE A DAY WITH BREAKFAST AND DINNER * Telephone Encounter - Kemal Jyoti M, ABIGAIL - 07/28/2023 8:33 AM EDT Did you pend patient's preferred pharmacy and medication before forwarding?yes Pharmacy: [id number] [id number] [facility] Pending Prescriptions: Disp Refills metFORMIN HCl 1000 MG Oral Tablet (Glucop*180 Ta*3 Sig: TAKE 1 TABLET BY MOUTH TWICE A DAY WITH BREAKFAST AND DINNER Last Visit: 07/09/2023 (in office), Visit date not found (telemedicine) Next Visit: 02/13/2024 If no future appointments scheduled, and last appointment is greater than a year ago, please schedule patient for a follow-up appointment Last date the medication was ordered: 07.08.22 Is this request for a controlled substance?No Urine Drug Screen:No results found for this or any previous visit. Patient Phone Numbers Labs: Lab Results Component Value Date/Time CREAT 1.0 06/17/2023 12:09 PM CREAT 0.68 10/15/2021 12:00 AM CREAT 1.2 06/30/2019 03:18 PM POTASSIUM 5.2 (H) 07/09/2023 11:35 AM POTASSIUM 2.8 (A) 10/15/2021 12:00 AM POTASSIUM 5.2 (H) 06/30/2019 03:18 PM TSH 3.91 06/17/2023 12:09 PM TSH 3.710 11/09/2020 12:00 AM TSH 2.88 06/30/2019 03:18 PM LDLCALC 50.80 11/09/2020 12:00 AM LDLCALC 88 02/05/2016 08:55 AM LDLDIRECT 50 06/17/2023 12:09 PM LDLDIRECT 71 11/09/2020 12:00 AM LDLDIRECT NOT APPLICABLE 02/05/2016 08:55 AM ALT 14 06/17/2023 12:09 PM ALT 24 11/29/2016 12:00 AM ALT 25 02/05/2016 08:55 AM HGBA1C 7.7 (H) 06/17/2023 12:09 PM HGBA1C 6.8 (A) 11/09/2020 12:00 AM HGBA1C 7.7 (H) 08/11/2018 12:02 PM documented in this encounter Plan of Treatment Upcoming Encounters Date Type Department Care Team (Latest Contact Info) Description 08/26/2023 7:15 AM EDT Cardiac Studies Cardiac Studies, [facility] [address] [place] [address] 08/26/2023 9:15 AM EDT Imaging [facility] 2nd Floor Cardiology, [place] [address] [place] [address] Gw, Excess Time Radiology [address] [place] [address] 08/29/2023 9:40 AM EDT Office Visit Podiatry [facility] [address] [place] [address] Melinda Stallworth, DPM [address] [facility] [place] [address] 10/01/2023 10:55 AM EDT Hospital Encounter [facility], Operating Room [facility] [address] [place] [phone] David Morales, [address] [place] [phone] 10/01/2023 10:55 AM EDT - 10/01/2023 11:20 AM EDT Surgery [facility], Operating Room [facility] [address] [place] [phone] David Morales, DO [address] [place] [phone] INJECTION SPINE LUMBAR OR SACRAL 02/13/2024 9:30 AM EDT Office Visit Family Medicine [address] [place] [phone] Sakshi Barros, [address] [place] [address] 06/16/2024 10:20 AM EST Office Visit Dermatology [address] [place] [address] Charline Hurst PA-C [address] [place] [address] [place] [address] Scheduled Procedures Name Priority Associated Diagnoses Date/Ti [...] this encounter Medical Devices Implanted Type Area Mesmerist Device Identifier Shelf Expiration Date Model / Serial / Lot Mesh 3dmax 3.1x5.3in t Med - [id number] Implanted:Qty: 1 on 05/02/2023 by Jean Claude Givens MD at OR [facility] Right: Groin CR BARD : DAVOL 03/25/2027 [id number] / / [id number] documented as of this encounter Visit Diagnoses Diagnosis Type 2 diabetes mellitus with diabetic neuropathy, unspecified (HCC) Spinal stenosis of lumbar region with neurogenic claudication Spinal stenosis, lumbar region, with neurogenic claudication documented in this encounter Advance Directives Latest [...] Discussed due to patient's condition Care Teams Dental Office Manager Relationship Specialty Start Date End Date Sakshi Barros DO [address] [place] [address] [place] [address] PCP - General Internal Medicine 02/05/16 documented as of this encounter
--- OUTSIDE RECORDS SUMMARY | 2023-10-04 23:11 | External Medical Summary | Summary of Care ---
Author Name Unknown Organization [facility] Address [address] [facility] [place] [address] Phone [phone] Care Team Providers Care Reel Man Name Role Phone Sakshi Barros DO Primary Care Provider [phone] Reason for Visit * Reason Onset Date Comments Follow Up 08/15/2023 Encounter Details Date Type Department Care Team (Late st Contact Info) Description 08/15/2023 Telephone Interventional Pain Center, [facility] [address] [place] [address] David Morales DO [address] [place] [phone] Follow Up Allergies No known active allergiesdocumented as of [...] MMIndications:DM type 2, goal HbA1c < 8% ([facility]) USE ONCE DAILY 100 Each 3 08/21/2022 4 Active OneTouch Delica Plus [id number]: Type 2 diabetes mellitus with diabetic neuropathy, [...] Statin History of cholecystectomy 10/15/2021 Atherosclerosis of samish co ronary artery without angina pectoris 05/29/2021 Last Assessment & Plan: Continue statin, metoprolol, lisinopril Not on aspirin due to GI bleeding Occupational exposure to other air contaminants 11/21/2020 Hypomagnesemia 11/10/2020 Rec[facility] 05/22/2020 History of [place] (myocardial infarction) 05/22/2020 Primary open-angle glaucoma, left [...] Overview: From Dr. Nuñez. Will recheck through [employer] next time he is seen. Major depressive [...] range 120 to 150. Last hemoglobin A1c 7.82010 continue metformin, Lantus Rectal bleeding 02/05/2016 01/10/2017 Overview: Had EGD/colonoscopy Acute blood loss anemia 02/05/201612/27 HTN, goal below 140/90 02/05/201601/10 Neuropathy 02/05/2016 01/10/2017 AK (actinic keratosis) 01/12/201401/10 Overview: Efudex (Salina Vazquez)- 04/2014 documented as of this encounter (statuses as of 08/15/2023) Immunizations Name Administration Dates Next Due COVID-19 mRNA, LNP-s, No Pre serve, 2-Dose Series ([employer]) 04/05/2021,07/04/2020,06/13/2020 COVID-19, MRNA-LNP, 23-24, P F, 30 [...] encounter Miscellaneous Notes * Telephone Encounter - Renee Dixon OSA - 08/15/2023 8:35 AM EDT Left a message offering a sooner injection date. documented in this encounter Plan of Treatment Upcoming Encounters Date Type Department Care Team (Latest Contact Info) Description 08/26/2023 7:15 AM EDT Cardiac Studies Cardiac Studies, [facility] [address] [facility] [place] [address] 08/26/2023 9:15 AM EDT Imaging [facility] 2nd Floor Cardiology, [place] [address] [facility] [place] [address] Gw, Excess Time Radiology [address] [place] [address] 08/29/2023 9:40 AM EDT Office Visit Podiatry [facility] [address] [facility] [place] [address] Melinda Stallworth, MABEL [address] [place] [address] [place] [phone] 09/24/2023 9:40 AM EDT Hospital Encounter OR [facility], Operating Room [facility] [address] [place] [phone] David Morales, DO [address] [place] [phone] 09/24/2023 9:40 AM EDT - 09/24/2023 10:05 AM EDT Surgery OR [facility], Operating Room [facility] [address] [place] [phone] David Morales, DO [address] [place] [phone] INJECTION SPINE LUMBAR OR [facility] 02/13/2024 9:30 AM EDT Office Visit Family Medicine [address] [place] [phone] Sakshi Barros [address] [place] [address] 06/16/2024 10:20 AM EST Office Visit Dermatology [address] [place] [address] Charline Hurst PA-C [address] [place] [address] [place] [address] Scheduled Procedures Name Priority Associated Diagnoses Date/Ti [...] this encounter Medical Devices Implanted Type Area College President Device Identifier Shelf Expiration Date Model / Serial / Lot Mesh 3dmax 3.1x5.3in [facility] Med - [id number] Implanted:Qty: 1 on 05/02/2023 by Jean Claude Givens MD at OR [facility] Right: Groin CR BARD : DAVOL 03/25/2027 [id number] / / [id number] documented as of this encounter Advance Directives [...] Discussed due to patient's condition Care Teams Reel Man Relationship Specialty Start Date End Date Sakshi Barros DO [address] [place] [address] [place] [address] PCP - General Internal Medicine 02/05/16 documented as of this encounter
--- OUTSIDE RECORDS SUMMARY | 2023-10-04 23:11 | External Medical Summary | Summary of Care ---
Author Name Unknown Organization [facility] Address [address] [place] [address] Phone [phone] Care Team Providers Care Portfolio Administrator Name Role Phone Sakshi Barros Primary Care Provider [phone] Reason for Visit * Reason Comments Diabetic Foot Care Encounter Details Date Type Department Care Team (Late st Contact Info) Description 08/29/2023 9:40 AM EDT Office Visit Podiatry [facility] [address] [facility] [place] [address] Melinda Stallworth, [facility]ABEL [address] [facility] [place] [address] Type 2 diabetes mellitus with diabetic neuropathy, without long-term current use of insulin ([facility])*; Pre-ulcerative calluses; Encounter for other procedures for purposes other than remedying health state Allergies No known active allergiesdocumented as of this encounter (statuses as of 08/29/2023) Medications Medication Sig Dispensed Refills Start Date [...] MMIndications:DM type 2, goal HbA1c < 8% ([facility]) USE ONCE DAILY 100 Each 3 08/21/2022 4 Active OneTouch Delica Plus [id number]: Type 2 diabetes mellitus with diabetic neuropathy, without long-term current use of insulin ([facility]) Test up to four times [...] ns:DM type 2, goal HbA1c < 8% ([facility]) INJECT 15 UNITS UNDER THE SKIN DAILY [...] as of this encounter (statuses as of 08/29/2023) Active Problems Problem Noted Date Diagnosed Date [...] Statin History of cholecystectomy 10/15/2021 Atherosclerosis of [place] co ronary artery without angina pectoris 05/29/2021 Last Assessment & Plan: Continue statin, metoprolol, lisinopril Not on aspirin due to GI bleeding Occupational exposure to other air contaminants 11/21/2020 Hypomagnesemia 11/10/2020 Recurrent major depressive disorder, in [place] 05/22/2020 History of MA (myocardial infarction) 05/22/2020 Primary open-angle glaucoma, left [...] as of this encounter (statuses as of 08/29/2023) Resolved Problems Problem Noted Date Diagnosed Date Resolved Date Absolute anemia 02/21/2021 06/12/2022 Abnormal thyroid blood test 03/30/2020 11/21/2020 Overview: From Dr. Nuñez. Will recheck through [employer] next time he is seen. Major depressive [...] range 120 to 150. Last hemoglobin A1c 7.40900 continue metformin, Lantus Rectal bleeding 02/05/2016 01/10/2017 Overview: Had EGD/colonoscopy Acute blood loss anemia 02/05/201612/27 HTN, goal below 140/90 02/05/201601/10 Neuropathy 02/05/2016 01/10/2017 AK (actinic keratosis) 01/12/201401/10 Overview: Efudex (Salina Vazquez)- 04/2014 documented as of this encounter (statuses as of 08/29/2023) Immunizations Name Administration Dates Next Due COVID-19 mRNA, LNP-s, No Pre serve, 2-Dose Series ([email or web address]) 04/05/2021,07/04/2020,06/13/2020 COVID-19, MRNA-LNP, 23-24, P F, 30 MCG/0.3 mL, 12 YRS AND ABOVE, IM [facility] 02/24/2023 Pneumococcal Conjugate Vacc, 13 Valent (Prevnar) [...] on file documented as of this encounter Progress Notes * Melinda Stallworth DPM - 08/29/2023 9:45 AM EDT Podiatry Established Note [facility] Name: Vahe Resendez : 1945 Date: 08/29/2023 REASON FOR VISIT: foot care SUBJECTIVE: This patient is a 78 year old male who presents today for follow up of recurrent callusand nail care. He feels he is walking on a different surface. He has neuropathy and takes gabapentin. He offers no other concerns today. Medical necessity reason: type 2 DM with polyneuropathy Last primary care appointment: 07/09/2023 Sakshi Barros Past Medical History: Diagnosis Date Acute blood loss anemia AK (actinic keratosis) 01/12/2014 Efudex (Salina Vazquez)- 04/2014 Anxiety 02/05/2016 Basal cell carcinoma of nose 07/09/2016 BPH without obstruction/lower urinary tract symptoms 02/05/2016 Heartburn 02/05/2016 Hypertension Mixed hyperlipidemia 02/05/2016 Rectal bleeding 02/05/2016 Had EGD/colonoscopy Restless legs syndrome 02/05/2016 Type 2 diabetes mellitus with hemoglobin A1c goal of less than 7.0% ([facility]) 02/05/2016 ALLERGIES: Review of patient's allergies indicates: No Known Allergies REVIEW OF SYSTEMS: CONSTITUTIONAL: No fever FOCUSED PODIATRIC EXAM: Vascular: Pedal pulses palpable including dorsalis pedis and posterior tibial artery at 2/4 bilaterally. Capillary refill time is within normal limits to all toes. Non pitting edema noted to the lower legs. [place]. Neurologic: Sensation (light touch) intact to the bilateral lower extremities. No hypersensitivity. No weakness. Musculoskeletal: No pain with palpation of the bilateral forefoot. Dermatological: Skin is thin. Hyperkeratotic skin to the right and left plantar foot sub met 5. Toenails are thickened (>3mm) and elongated 1-5 bilaterally. There is discoloration of all toenails with the bilateral great toenails and second toenails being most significant. Class Findings for Routine Foot Care Class A Findings: None Class B Findings: Advanced trophic changes (at least three of the following): hair growth (decreaseor absence), nail changes (thickening) and skin texture (thin, shiny) Class C Findings: Edema and Paresthesia (abnormal spontaneous sensations in feet) Modifier: Q9 - 1 Class B Finding and 2 Class C Findings DIAGNOSTIC STUDIES: Hemoglobin AIC Results: Lab Results Component Value Date/Time HEMOGLOBIN A1C - [facility] 7.7 (H) 06/17/2023 12:09 PM HEMOGLOBIN A1C - [facility] 7.7 (H) 12/25/2022 12:15 PM HEMOGLOBIN A1C - [facility] 7.9 (H) 06/12/2022 11:08 AM HEMOGLOBIN A1C - [facility] 7.7 (H) 08/11/2018 12:02 PM HEMOGLOBIN A1C - [facility] 6.3 (H) 01/07/2018 01:52 PM HEMOGLOBIN A1C - [facility] 5.8 02/05/2016 08:55 AM ASSESSMENT: 1. Pre-ulcerative calluses x 2 bilateral plantar foot 2. Type 2 diabetes mellitus with diabetic neuropathy, without long-term current use of insulin ([facility]) 3. Encounter for other procedures for purposes other than remedying health state PLAN: Procedure: After prepping the area with alcohol and allowing to dry, the hyperkeratotic lesions to the bilateral foot (2 total) were sharply pared of all hyperkeratotic skin without incident. This was performedwith a #15 blade. An electrical umbrella bur was used to reduce any remaining edges. Patient tolerated well and noted improvement following procedure. Procedure: After mild cleansing and drying of feet, toenails 1-5 bilaterally were trimmed to appropriate length with sterile nail cutters. This was performed without incident. The patient tolerated well. Follow up: 3 months Melinda Stallworth DPM documented in this encounter Nursing Notes * Nadja Segundo LPN - 08/29/2023 9:39 AM EDT Pt presents for routine diabetic foot care, no pain in feet. BSG 154 this morning. documented in this encounter Plan of Treatment Upcoming Encounters Date Type Department Care Team (Latest Contact Info) Description 09/05/2023 9:40 AM EDT Hospital Encounter OR [facility], Operating Room [facility] [address] [place] [phone] David Morales, [address] [place] [phone] 09/05/2023 9:40 AM EDT - 09/05/2023 10:05 AM EDT Surgery OR [facility], Operating Room [facility] [address] [place] [phone] David Morales DO [address] [place] [phone] INJECTION SPINE LUMBAR OR [facility] 12/01/2023 10:00 AM EDT Office Visit Podiatry [facility] [address] [place] [address] Melinda Stallworth DPM [address] [place] [address] [place] [address] 01/27/2024 8:00 AM EDT Office Visit Cardiology [address] [place] [address] Tito House PA-C [address] [place] [address] 02/13/2024 9:30 AM EDT Office Visit Family Medicine [address] [place] [phone] Sakshi Barros [address] [place] [address] 06/16/2024 10:20 AM EST Office Visit Dermatology [address] [place] [address] Charline Hurst PA-C [address] [place] [address] [place] [address] Scheduled Procedures Name Priority Associated Diagnoses Date/Ti [...] this encounter Medical Devices Implanted Type Area Director Of Mechanical Engineering Device Identifier Shelf Expiration Date Model / Serial / Lot Mesh 3dmax 3.1x5.3in t Med - [id number] Implanted:Qty: 1 on 05/02/2023 by Jean Claude Givens MD at OR [facility] Right: Groin CR BARD : DAVOL 03/25/2027 [id number] / / [id number] documented as of this encounter Visit Diagnoses Diagnosis Type 2 diabetes mellitus with diabetic neuropathy, without long-term current use of insulin (HCC)- Primary Pre-ulcerative calluses Corns and callosities Encounter for other procedures for purposes other than remedying health state Spinal stenosis of lumbar region with neurogenic [...] Discussed due to patient's condition Care Teams Portfolio Administrator Relationship Specialty Start Date End Date Sakshi Barros DO [address] [place] [address] [place] [address] PCP - General Internal Medicine 02/05/16 documented as of this encounter
--- OUTSIDE RECORDS SUMMARY | 2023-10-04 23:11 | External Medical Summary | Summary of Care ---
Author Name Unknown Organization [facility] Address [address] [facility] [place] [address] Phone [phone] Care Team Providers Care Teacher Cclc Name Role Phone Sakshi Barros DO Primary Care Provider [phone] Reason for Visit * Reason Onset Date Comments Follow Up 07/28/2023 Encounter Details Date Type Department Care Team (Late st Contact Info) Description 07/28/2023 Telephone Interventional Pain Center, Health system [address] [place] [address] David Morales DO [address] [place] [...] type 2, goal HbA1c < 8% ([facility]) USE ONCE DAILY 100 Each 3 08/21/2022 4 Active Sertraline HCl 50 MG Oral Tablet (Zoloft)Indications:A nxiety TAKE 1 TABLET BY MOUTH EVERYDAY AT BEDTIME 90 Tablet 2 11/16/2022 Active OneTouch Delica Plus [id number]: Type 2 diabetes mellitus with diabetic neuropathy, [...] Statin History of cholecystectomy 10/15/2021 Atherosclerosis of [place] co ronary artery without angina pectoris 05/29/2021 Last Assessment & Plan: Continue statin, metoprolol, lisinopril Not on aspirin due to GI bleeding Occupational exposure to other air contaminants 11/21/2020 Hypomagnesemia 11/10/2020 Recurrent major depressive disorder, in [facility] n 05/22/2020 History of [place] (myocardial infarction) [...] Overview: From Dr. Nuñez. Will recheck through [employer] next time he is seen. Major depressive [...] range 120 to 150. Last hemoglobin A1c 7.99595 continue metformin, Lantus Rectal bleeding 02/05/2016 01/10/2017 [...] Telephone Encounter - Renee Dixon [facility] - 07/28/2023 12:49 PM EDT LM offering sooner injection date. I need to speak with patient if he calls back. documented in this encounter Plan of Treatment Upcoming Encounters Date Type Department Care Team (Latest Contact Info) Description 08/26/2023 7:15 AM EDT Cardiac Studies Cardiac Studies, Health system [address] [facility] [place] [address] 08/26/2023 9:15 AM EDT Imaging [facility] II 2nd Floor Cardiology, [place] [address] [address] Gw, Excess Time Radiology [address] [place] [id number] 08/29/2023 9:40 AM EDT Office Visit Podiatry Health system [address] [facility] [place] [address] Melinda Stallworth, DPM [address] [place] [address] [place] [address] 10/01/2023 10:55 AM EDT Hospital Encounter OR [facility], Operating Room [facility] [address] [place] [phone] David Morales, DO [address] [place] [phone] 10/01/2023 10:55 AM EDT - 10/01/2023 11:20 AM EDT Surgery OR [facility], Operating Room [facility] [address] [place] [phone] David Morales, DO [address] [place] [phone] INJECTION SPINE LUMBAR OR [facility] 02/13/2024 9:30 AM EDT Office Visit Family Medicine [address] [place] [phone] Sakshi Barros [address] [place] [address] 06/16/2024 10:20 AM EST Office Visit Dermatology [address] [place] [address] Charline Hurst PA-C [address] [place] [address] [place] [address] Scheduled Procedures Name Priority Associated Diagnoses Date/Ti [...] 09/24/2022, Additional history exists HbA1c 12/16/2023 06/17/2023, 08, 06/12/2022, Additional history exists Diabetic Foot Exam [...] this encounter Medical Devices Implanted Type Area Helicopter Engineer Device Identifier Shelf Expiration Date Model / Serial / Lot Mesh 3dmax 3.1x5.3in [facility] Med - [id number] Implanted:Qty: 1 on 05/02/2023 by Jean Claude Givens MD at OR [facility] Right: Brittani JAMES BARD : DAVOL 03/25/2027 [id number] / / [id number] documented as of this encounter Advance Directives [...] Discussed due to patient's condition Care Teams Teacher Cclc Relationship Specialty Start Date End Date Sakshi Barros DO [address] [place] [address] [place] [address] PCP - General Internal Medicine 02/05/16 documented as of this encounter
--- OUTSIDE RECORDS SUMMARY | 2023-10-04 23:11 | External Medical Summary | Summary of Care ---
Author Name Unknown Organization [facility] Address [address] [facility] [place] [address] Phone [phone] Care Team Providers Care Car Starter Name Role Phone BarrosSakshi austin Primary Care Provider + [phone] Reason for Visit * Auth/Cert Specialty Diagnoses / Procedures Referred By Arabella t Referred To Contact Diagnoses Spinal stenosis of lumbar region with neurogenic claudication Spinal stenosis of lumbar region with neurogenic claudication [M48.062] Procedures INJECT DX/THER SUBSTANCE INTERLAMINAR LUMBAR/SACRAL W IMAGE GUIDE INJECTION SPINE LUMBAR OR SACRAL David Morales DO [address] [place] [phone] [facility] [address] [place] [address] Referral ID Status Reason Start Date Expiration Date Visits Re quested Visits Authorized [id number] Encounter Details Date Type Department Care Team (Latest Contact Info) Description 09/05/2023 9:09 AM EDT - 09/05/2023 10:14 AM EDT Hospital Encounter [facility], Operating Room [facility] [address] [place] [phone] David Morales DO [address] [place] [address] Discharge Disposition: Home - Self Care Allergies No known active allergiesdocumented as of this encounter (statuses as of 09/05/2023) Medications Medication Sig Dispensed Refills Start Date [...] long-term current use of insulin ([facility]) USE UP TO 3 TIMES [...] 2, goal HbA1c < 8% ([facility]) USE ONCE DAILY 100 Each 3 08/21/2022 4 Active OneTouch Delica Plus [id number]: Type 2 diabetes mellitus with diabetic neuropathy, without long-term current use of insulin ([facility]) Test up to four times [...] ns:DM type 2, goal HbA1c < 8% ([facility]) INJECT 15 UNITS UNDER THE [...] as of this encounter (statuses as of 09/05/2023) Active Problems Problem Noted Date Diagnosed Date Type 2 diabetes mellitus wit h diabetic neuropathy, without long-term current use of insulin 07/09/2023 Chronic right shoulder pain 08/05/2022 Last Assessment & Plan: Has an appointment to go see Dr. Mendoza, his orthopedic surgeon, next week -continue ice Diabetic polyneuropathy asso isabell with type 2 diabetes mellitus 03/06/2022 Last [...] Statin History of cholecystectomy 10/15/2021 Atherosclerosis of [place] ronary artery without angina pectoris 05/29/2021 Last Assessment & Plan: Continue statin, metoprolol, lisinopril Not on aspirin due to GI bleeding Occupational exposure to other air contaminants 11/21/2020 Hypomagnesemia 11/10/2020 Recurrent major depressive disorder, in remissio n 05/22/2020 History of CA (myocardial infarction) 05/22/2020 Primary open-angle glaucoma, left [...] as of this encounter (statuses as of 09/05/2023) Resolved Problems Problem Noted Date Diagnosed Date Resolved Date Absolute anemia 02/21/2021 06/12/2022 Abnormal thyroid blood test 03/30/2020 11/21/2020 Overview: From Dr. Nuñez. Will recheck through [facility] next time he is seen. Major depressive [...] range 120 to 150. Last hemoglobin A1c 7.71523 continue metformin, Lantus Rectal bleeding 02/05/2016 01/10/2017 Overview: Had EGD/colonoscopy Acute blood loss anemia 02/05/201612/27 HTN, goal below 140/90 02/05/201601/10 Neuropathy 02/05/2016 01/10/2017 AK (actinic keratosis) 01/12/201401/10 Overview: Efudex (Salina Vazquez)- 04/2014 documented as of this encounter (statuses as of 09/05/2023) Immunizations Name Administration Dates Next Due COVID-19 [...] on file documented as of this encounter Last Filed Vital Signs Vital Sign Reading Time Taken Comments Blood Pressure 114/68 09/05/2023 10:07 AM EDT Pulse 67 09/05/2023 10:07 AM EDT Temperature 36.1 C (96.9 F) 09/05/2023 10:07 AM E DT Respiratory Rate 18 09/05/2023 10:07 AM EDT Oxygen Saturation 95% 09/05/2023 10:07 AM EDT Inhaled Oxygen Concentration - - Weight - - Height - - Body Mass Index - - documented in this encounter Discharge Instructions * Discharge Instr - AVS* Andrew David Jarrett DO - 09/05/2023 10:06 AM EDT [facility] [address] [place] [address] Discharge Date: 09/05/2023 [facility] at [phone] during business hours. For after-hours emergencies call 911. Your attending physician at the time of your discharge was: David Morales DO [address] [facility] [address] The information below provides you with the instructions and the list of medications you need to betaking following discharge from the hospital. If you have any questions, please ask before leaving.Please carry this letter with you when you see your doctor in the clinic. Diet: Resume your normal diet If you are diabetic, follow your blood sugars closely for next 2-3 days as they are likely to be elevated. If you are having difficulty controlling your blood sugars call your family doctor or the physician that treats your diabetes. Activity: Do not engage in strenuous activity today Resume your normal activities tomorrow Do not soak in water for 24 hours. No swimming, hot tub or bath but showering is allowed. Do not use heat on the injection site for 24 hours. If uncomfortable ice may be helpful. Some injections may make your arms or legs weak for a few hours. Be extremely careful when walking or changing positions that you do not fall. Have someone assist you for the next 6 hours. If weakness or numbness becomes progressive CALL IMMEDIATELY or GO TO THE NEAREST EMERGENCY ROOM Do not restart physical therapy or chiropractic manipulation until 48 hours after your injection Call : If weakness or numbness suddenly becomes worse or become progressive If the injection site becomes red, swollen, warm to the touch, begins to bleed or drain fluid, or is excessively painful. If you have any questions Medications: Resume all the medications you were taking prior to your injection. Resume your anticoagulants tomorrow unless otherwise instructed by your family physician, yard laborer or the anticoagulation clinic. Additional Instructions: None Driving: You may resume driving in 12-24 hours if no weakness is noted . Date you may return to work or school: N/A Follow Up: Please make a follow-up telephone appointment with our nursing staff in 4-6 weeks. documented in this encounter Progress Notes * David Morales DO - 09/05/2023 10:06 AM EDT [facility] [place] [address] [facility] [phone] OUTPATIENT SURGERY DISCHARGE SUMMARY NOTE Name: Vahe Resendez Location: [facility] Date: 09/05/2023 Time: 10:07 AM Surgery Date: 09/05/2023 Procedure: INJECTION SPINE LUMBAR OR SACRAL No laterality found for procedure #1 Surgeon: David Morales DO Discharge Diagnosis: lumbar radicular pain and spinal stenosis After examination of this patient, I have determined he is ready for discharge to home when the patient meets criteria. Discharge instructions were given to the patient. David Morales DO [facility], Operating Room [facility] [address] [facility] [phone] documented in this encounter H&P Notes * David Morales DO - 09/05/2023 9:14 AM EDT Interventional Pain H&P Subjective: History of Present Illness: Vahe Resendez is a 78 year old year-old male with a past medical history significant for lumbar radicular pain and spinal stenosis who is presenting for L5/S1 SURJIT to improve his pain and function. his pain is essentially unchanged since our last office visit with him. ASA 3 AW nml Review of Systems: A focused 12-pt ROS were of reviewed with the patient including difficulty with sleep, snoring, aspiration history, dysphagia, stomach pain, nausea and vomiting, severe headaches, confusion, open skin lesions or wounds, chest pain, shortness of breath, excessive thirst, somnolence, dysuria, incomplete bladder emptying, easy bruising, recent clotting problems or bleeding, depression or rushed thoughts unless noted previously. Review of patient's allergies indicates: No Known Allergies Medications, Past Medical History, Past Surgical History reviewed and documented in Epic. See detailed report if needed. Pertinent Labs/Test Results: No results found for: "INR" No results found for: "CREATININE" Hemoglobin A1C (%) Date Value 06/17/2023 7.7 (H) 08/11/2018 7.7 (H) HEMOGLOBIN, [id number] LAB (%) Date Value 11/09/2020 6.8 (A) No results found for: "AMPHETAMINE", "BARBITURATES", "BENZODIAZEPINES", "BUPRENORPHINE", "METHADONE", "OPIATES", "OXYCODONE", "PHENCYCLIDINE", "CANNABINOIDS", "TOX SCREEN", "URINE", "TOX SCREEN-SERUM", "TOX SCREEN, URINE" Imaging: I personally reviewed the imaging and my findings were . NM MYOCARD PERF IMG SPECT MULT STUDIES WITH PHARM INTERV Results can be viewed in the patient's cardiology tab of Chart Review for this date of service. Objective Physical Exam: Vital Signs: There were no vitals taken for this visit. There is no height or weight on file to calculate BMI. General: No apparent distress. Eyes: pupils equal and round, sclera white, pupils midsize. ENT: mucous membranes moist Resp: Non-labored breathing CV: Extremities warm and well-perfused. Psych: Oriented; affect warm, insight good. Skin: No rashes or lesions appreciated on exposed skin Neuromuscular Exam: Facet loading neg, SLR pos, TTT over lumbar spine Assessment: Vahe is a 78 year old year-old male with: Lumbar radicular pain Lumbar spinal stenosis Plan: The patient is undergoing L5/S1 SURJIT today to alleviate his pain and improve his function. The risks, benefits and alternatives to the procedure were reviewed at length and the patient was provided the opportunity to ask questions which were answered to their voiced understanding. Following this comprehensive discussion, the patient opted to proceed. The patient was consented to the procedure following this comprehensive conversation. David Morales DO [facility], Operating Room [facility] [address] [facility] [place] [phone] documented in this encounter Nursing Notes * Charline Fortune RN - 09/05/2023 10:14 AM EDT Pt tolerated procedure well. Pt has been visited by Dr. Morales. Discharge instructions reviewed with pt and pt has verbalized understanding of these teachings. Pt ready for discharge. * Wen Conti RN - 09/05/2023 10:03 AM EDT Band aid applied to area. Patient transferred to PACU 11 via wheelchair * Wen Conti RN - 09/05/2023 9:54 AM EDT Patient tolerating pain management injection well. documented in this encounter OR Notes * OR Surgeon - David Morales DO - 09/05/2023 10:05 AM EDT INTERLAMINAR LUMBAR EPIDURAL STEROID INJECTION DATE: 09/05/2023 PHYSICIAN: David Morales DO PREOPERATIVE DIAGNOSIS: Lumbar spondylosis with lumbar radiculopathy. POSTOPERATIVE DIAGNOSIS: Lumbar spondylosis with lumbar radiculopathy. PROCEDURE PERFORMED: L5/S1 interlaminar epidural steroid injection on the right side. Fluoroscopy for precise needle placement. ANESTHESIA: Local infiltration with 1% lidocaine. MONITORS: Automatic blood pressure cuff, pulse oximetry. There was no phlebotomist lab assistant, EBL or drains placed during this procedure. INDICATIONS: I had the pleasure of seeing Vahe Resendez ([id number]) in the pain management clinic at the [facility] today. Vahe Resendez is a 78 year old year-old male has a history of lumbar radiculopathy. he is here today for an interlaminar lumbar epidural steroid injection today. MEDICATIONS: No current facility-administered medications for this encounter. ALLERGIES: Review of patient's allergies indicates: No Known Allergies REVIEW OF SYSTEMS: Negative for fever, chills, chest pain, SOB, bleeding abnormalities, nausea, vomiting, diarrhea, worsening edema, or new rashes. FOCUSED PHYSICAL EXAMINATION: The patient is awake, alert and oriented, and is in no acute distress. Vital signs are stable. The patient is afebrile. The rest of the PE is essentially unchanged from the patient's recent visit to our office. I explained the procedure to the patient including the risks, benefits and alternatives to the procedure. The risks discussed with the patient included but were not limited to: bleeding, infection, and damage to surrounding nerves, tissues, and organs, paralysis, increased pain, pain at the site ofinjection, allergic reaction, blood pressure instability, seizures, heart block, headaches, increase in blood sugar, worsening of glaucoma, blindness, manic episodes, mood instability, . Alternatives to the procedure were also explained and include: do nothing, surgery, medications, and physical therapy. The patient verbalized understanding and was willing to proceed. PROCEDURE IN DETAIL: An informed consent was obtained. The patient was taken to the procedure room,was positively identified by the staff and attending physician. The patient was positioned prone onthe procedure bed. Vital signs were monitored as above and remained stable throughout the procedure. The skin was prepped and draped in a standard sterile fashion. A surgical pause time-out was performed and agreed upon by the members of the team. Fluoroscopic view of the lumbar spine was obtained and the area of interest was identified. The skin and subcutaneous tissues were anesthetized using 1% lidocaine and 25-gauge 1-1/2 inch needle. After that, a 20-gauge, 3.5-inch epidural needle was advanced towards the L5/S1 interlaminar windowin the right paramedian position. AP, contralateral oblique and lateral views were used to assess appropriate needle position. Loss of resistance to air technique was utilized and was obtained at 5-6cm from the skin. The needle's position was additionally verified by injecting radiopaque dye, which showed spread of the dye in the epidural space in AP and lateral views. After negative aspiration for CSF and blood, 40 mg of Kenalog diluted in 2 mL of 1% lidocaine and 1mL of sterile preservative free normal saline was injected into the epidural space. The needle was withdrawn. The patient tolera jessi the procedure well. COMPLICATIONS: None. DISPOSITION: 1. Return to clinic in 1-2 months for follow-up evaluation, sooner as needed. 2. Resume activity as tolerated. 3. Patient can drive after 12-24 hours if no weakness noted. 4. The patient will monitor their blood glucose over the next week as instructed and was advised tocontact us if the reading is greater than 250mg/dL or if they develop any signs or symptoms of hyperglycemia. David Morales DO [facility], [facility] [address] [place] [phone] documented in this encounter Plan of Treatment Upcoming Encounters Date Type Department Care Team (Late st Contact Info) Description 09/30/2023 2:00 PM EDT Scheduled Telephone Interventional Pain Center, [facility] [address] [place] [address] Nurse Savage Phone Call Interventional Pain [facility] [address] [place] [address] 12/01/2023 10:00 AM EDT Office Visit Podiatry [facility] [address] [place] [address] Melinda Stallworth, DPM [address] [facility] [place] [address] 01/27/2024 8:00 AM EDT Office Visit Cardiology [address] [place] [address] [facility] [address] [place] [address] 02/13/2024 9:30 AM EDT Office Visit Family Medicine [address] [place] [phone] Sakshi Barros DO [address] [place] [address] [place] [address] 06/16/2024 10:20 AM EST Office Visit Dermatology [address] [place] [address] Charline Hurst PA-C [address] [place] [address] [place] [id number] Scheduled Procedures Name Priority Associated Diagnoses Date/Ti me INJECTION SPINE LUMBAR OR SACRAL Spinal stenosis of lumbar region with neurogenic claudication 09/05/2023 9:51 AM EDT ESOPHAGOGASTRODUODENOSCOPY ( EGD), FLEXIBLE, TRANSORAL, [...] this encounter Medical Devices Implanted Type Area Mining Teacher Device Identifier Shelf Expiration Date Model / Serial / Lot Mesh 3dmax 3.1x5.3in t Med - [id number] Implanted:Qty: 1 on 05/02/2023 by Jean Claude Givens MD at [facility] Right: Groin CR BARD : DAVOL 03/25/2027 [id number] / / [id number] documented as of this encounter Procedures Procedure Name Priority Date/Time Associated Diagnosis Comments FLUORO INTERVENTIONAL PAIN PROCEDURE NONBILLABLE Routine 09/05/2023 10:14 AM EDT documented in this encounter Results * FLUORO INTERVENTIONAL PAIN PROCEDURE NONBILLABLE (09/05/2023 10:14 AM EDT) Narrative Scheduling, Silent - 09/05/2023 10:14 AM EDT This procedure will not be read by a Radiologist. Please see operative note. David MCDERMOTT FLUOROSCOPY documented in this encounter Administered Medications Inactive Administered Medications - up to 3 most recent administrations Medication Order MAR Action Action Date Dose Rate Site Iohexol (Omnipaque 180) inj 1 mL 1 mL, Injection, ONCE, On Fri09/05/23 at 0945, For 1 dose Given 09/05/2023 9:57 AM EDT 3 mL lidocaine 1 % inj 20 mg 20 mg (2 mL), Subcutaneous, ONCE, On Fri09/05/23 at 0945, For 1 dose Given 09/05/2023 9:54 AM EDT 5 mL O ther-Specify Triamcinolone Acetonide (Kenalog) 40 MG/ML inj 40 mg 40 mg, Injection, ONCE, On Fri09/05/23 at 0945, For 1 dose Given 09/05/2023 10:02 AM EDT 40 mg documented in this encounter Active and Recently Administered Medications Times are shown in EDT. Scheduled Medication Order 09/03/2023 09/04/2023 09/05/2023 Iohexol (Omnipaque 180) inj 1 mL (COMPLETED) 1 mL, Injection, ONCE, On Fri09/05/23 at 0945, For 1 dose 0957 (Given - Provid er: Wen Conti RN) lidocaine 1 % inj 20 mg (COMPLETED) 20 mg (2 mL), Subcutaneous, ONCE, On Fri09/05/23 at 0945, For 1 dose 0954 (Given - Provid er: Wen Conti RN) Triamcinolone Acetonide (Kenalog) 40 MG/ML inj 40 mg (COMPLETED) 40 mg, Injection, ONCE, On Fri09/05/23 at 0945, For 1 dose 1002 (Given - Provid er: Wen Conti RN) documented in this encounter Advance Directives Latest [...] Discussed due to patient's condition Care Teams Car Starter Relationship Specialty Start Date End Date Sakshi Barros DO [address] [place] [address] [place] [address] PCP - General Internal Medicine 02/05/16 documented as of this encounter
--- OUTSIDE RECORDS SUMMARY | 2023-10-04 23:11 | External Medical Summary | Summary of Care ---
Author Name Unknown Organization [facility] Address [address] [facility] [place] [address] Phone [phone] Care Team Providers Care Casing Cooker Name Role Phone Sakshi Barros Primary Care Provider [phone] Reason for Visit * Reason Comments Back Pain Encounter Details Date Type Department Care Team (Late st Contact Info) Description 07/21/2023 11:00 AM EDT Office Visit Interventional Pain Center, [facility] [address] [place] [address] Saige Preston PA-C [address] [place] [address] Spinal stenosis of lumbar region with neurogenic claudication*; Lumbar radicular pain; Sacroiliitis (HCC) Allergies No known active allergiesdocumented as of this encounter (statuses as of 07/21/2023) Medications Medication Sig Dispensed Refills Start Date [...] TO APPOINTMENT 4 Capsule 1 05/29/2021 Active metFORMIN HCl 1000 MG Oral Tablet (Glucophage)Indicatio ns:Type 2 diabetes mellitus with diabetic neuropathy, unspecified ([facility]) TAKE 1 TABLET BY MOUTH TWICE A DAY WITH BREAKFAST AND DINNER 180 Tablet 3 07/08/2022 Active Additional Information Patient taking differently:, TAKE 1 TABLET BY MOUTH TWICE A DAY WITH BREAKFAST AND DINNER,Indications: diabetes, Reported on 10/28/2022 Vitamin D3 50 MCG (2000 UT) Oral Capsule Take 1 Capsule by mouth in the morning. 0 Active Probiotic 1-250 BILLION-MG Oral Capsule Take by mouth. 0 Active OneTouch Verio In Vitro Strip (Glucose Blood)Indications:Typ e 2 diabetes mellitus with diabetic neuropathy, without long-term current use of insulin ([facility]) USE UP TO 3 TIMES A DAY [...] Breath Activated (Advair Diskus)Indications:As thma-COPD overlap syndrome INHALE ONE PUFF BY MOUTH TWICE A [...] Tablet 2 11/16/2022 Active OneTouch Delica Plus [id number]: Type 2 diabetes mellitus with diabetic neuropathy, without long-term current use of insulin ([facility]) Test up to four times daily 400 [...] ns:DM type 2, goal HbA1c < 8% ([facility]) INJECT 15 UNITS UNDER THE SKIN DAILY 15 mL 2 07/17/2023 5 Active traMADol HCl 50 MG Oral Tablet (Ultram)Indications:S brodie stenosis of lumbar region with neurogenic claudication Take 1 Tablet by mouth every 6 hours as needed for Severe pain. 60 Tablet 0 07/18/2023 Active documented as of this encounter (statuses as of 07/21/2023) Active Problems Problem Noted Date Diagnosed Date [...] Statin History of cholecystectomy 10/15/2021 Atherosclerosis of [place] ronary artery without angina pectoris 05/29/2021 Last Assessment & Plan: Continue statin, metoprolol, lisinopril Not on aspirin due to GI bleeding Occupational exposure to other air contaminants 11/21/2020 Hypomagnesemia 11/10/2020 Recurrent major depressive disorder, in remissio n 05/22/2020 History of [place] (myocardial infarction) 05/22/2020 Primary open-angle glaucoma, left [...] as of this encounter (statuses as of 07/21/2023) Resolved Problems Problem Noted Date Diagnosed Date Resolved Date Absolute anemia 02/21/2021 06/12/2022 Abnormal thyroid blood test 03/30/2020 11/21/2020 Overview: From Dr. Nuñez. Will recheck through [place] next time he is seen. Major depressive [...] range 120 to 150. Last hemoglobin A1c 7.23876 continue metformin, Lantus Rectal bleeding 02/05/2016 01/10/2017 Overview: Had EGD/colonoscopy Acute blood loss anemia 02/05/201612/27 HTN, goal below 140/90 02/05/201601/10 Neuropathy 02/05/2016 01/10/2017 AK (actinic keratosis) 01/12/201401/10 Overview: Efudex (Salina Vazquez)- 04/2014 documented as of this encounter (statuses as of 07/21/2023) Immunizations Name Administration Dates Next Due COVID-19 mRNA, LNP-s, No Pre serve, 2-Dose Series ([employer]) 04/05/2021,07/04/2020,06/13/2020 COVID-19, MRNA-LNP, 23-24, P F, [...] as of this encounter Progress Notes * Saige Preston PA-C - 07/21/2023 10:41 AM EDT Name: Vahe Resendez Date: 07/21/2023 HPI: Vahe Resendez is a 78 year old male known to the Pain Management clinic presents for follow up due to chronic low back and LE pain. Last evaluated September 2022, caudal SURJIT - notes relief for at least three months. Admits increased pain in the past four to five months without injury. HE is somewhat confused timing degroot, though it mot recent injection was a few years ago? Locates pain R > L low back, buttock, posterior thigh and lateral calf. Rates pain 6/10 and is constant in nature. Described as "sitting on golf ball." Weakness R LE, can fall from this. Associated LE paresthesia, although unable to provide dermatomal pattern - noting the extremity "goes ." Denies groin pain bilaterally. Denies bowel/bladder dysfunction. Aggravated by walking, standing. Alleviated by rest, sitting. Using tramadol, gabapentin, tylenol for pain relief. History of injections: Caudal SURJIT: 05/01/22 + DM, most recent HbA1c 7.04 Mar 2024 Does test at ome, generally just in AM. Occasionally will forget to check in afternoon or evening. Of note, laparoscopic right inguinal hernia Apr 2023. Doing well from procedure. History: Past Medical History: Diagnosis Date Acute blood loss anemia AK (actinic keratosis) 01/12/2014 Efudex (Cheli em, hAK)- 04/2014 Anxiety 02/05/2016 Basal cell carcinoma of nose 07/09/2016 BPH without obstruction/lower urinary tract symptoms 02/05/2016 Heartburn 02/05/2016 Hypertension Mixed hyperlipidemia 02/05/2016 Rectal bleeding 02/05/2016 Had EGD/colonoscopy Restless legs syndrome 02/05/2016 Type 2 diabetes mellitus with hemoglobin A1c goal of less than 7.0% ([facility]) 02/05/2016 Past Surgical History: Procedure Laterality Date ABD/PELVIS CT W/O IV AND W/O PO CONTRAST 01/04/2016 [facility]-showed multiple calculi ARTHROPLASTY KNEE TOTAL 2013 Right COLONOSCOPY 01/19/2016 [facility] [place] COLONOSCOPY, DIAGNOSTIC (RECTUM) 02/17/2018 diverticulosis, repeat 10 yrs/COLONOSCOPY FLEXIBLE PROXIMAL DIAGNOSTIC performed by Julien Conway DO at ENDOSCOPY [facility] COLONOSCOPY, DIAGNOSTIC (RECTUM) 01/30/2022 diverticulosis in entire colon, internal hemorrhoids / no specimens collected / COLONOSCOPY FLEXIBLE PROXIMAL DIAGNOSTIC performed by Phillip Shore MD at ENDOSCOPY [facility] COLONOSCOPY, DIAGNOSTIC (RECTUM) 01/19/2021 diverticulosis / INPT [facility] EGD, FLEXIBLE, DIAGNOSTIC N/A 07/22/2017 ESOPHAGOGASTRODUODENOSCOPY (EGD), FLEXIBLE, TRANSORAL, DIAGNOSTIC performed by Khoa Mejia MD atENDOSCOPY [facility] EGD, FLEXIBLE, DIAGNOSTIC N/A 10/22/2017 ESOPHAGOGASTRODUODENOSCOPY (EGD), FLEXIBLE, TRANSORAL, DIAGNOSTIC performed by Khoa Mejia MD atENDOSCOPY [facility] EGD, FLEXIBLE, DIAGNOSTIC N/A 10/13/2018 mild inflammatory changes, hiatal hernia, repeat 1 yr/ESOPHAGOGASTRODUODENOSCOPY (EGD), FLEXIBLE, TRANSORAL, DIAGNOSTIC performed by Julien Conway DO at ENDOSCOPY [facility] EGD, FLEXIBLE, DIAGNOSTIC 12/20/2019 inflammatory changes on bx, repeat 1.5 yrs / ESOPHAGOGASTRODUODENOSCOPY (EGD), FLEXIBLE, TRANSORAL,DIAGNOSTIC performed by Julien Conway DO at ENDOSCOPY [facility] EGD, FLEXIBLE, DIAGNOSTIC 09/05/2021 z-line irregular at 41 cm from insciors, gastritis / biopsies from the esophagus showed mild inflammation ESOPHAGOGASTRODUODENOSCOPY (EGD), FLEXIBLE, TRANSORAL, DIAGNOSTIC performed by Julien Conway DO at ENDOSCOPY [facility] EGD, FLEXIBLE, DIAGNOSTIC 01/30/2022 HH, z-line irregular / biopsies shows mild to moderate inflammation / ESOPHAGOGASTRODUODENOSCOPY (EGD), FLEXIBLE, TRANSORAL, DIAGNOSTIC performed by Phillip Shore MD at ENDOSCOPY [facility] EGD, FLEXIBLE, DIAGNOSTIC 03/04/2023 biopsies normal/recall 1 year/ESOPHAGOGASTRODUODENOSCOPY (EGD), FLEXIBLE, TRANSORAL, DIAGNOSTIC performed by Hayder Vargas MD at ENDOSCOPY [facility] EGD, FLEXIBLE, W/BIOPSY 01/19/2016 [facility] EGD, W/ENDOSCOPIC US 05/26/2017 [place] / ESOPHAGOGASTRODUODENOSCOPY (EGD), FLEXIBLE, TRANSORAL, ENDOSCOPIC ULTRASOUND performed by Julien Conway DO at ENDOSCOPY [facility] EGD, W/ENDOSCOPIC US N/A 02/19/2022 dilation CBD/multiple stones CBD/ESOPHAGOGASTRODUODENOSCOPY (EGD), FLEXIBLE, TRANSORAL, ENDOSCOPIC ULTRASOUND performed by Julien Conway DO at OR [facility] ERCP, DIAGNOSTIC, SPECIMEN COLLECTION N/A 02/19/2022 benign biliary papillary stenosis/stone and sludge/choledocholithiasis, complete removal/ENDOSCOPICRETROGRADE CHOLANGIOPANCREATOGRAPHY (ERCP) DIAGNOSTIC performed by Julien Conway DO at OR [facility] INCISION OF EYE Unsure which eye-Metal removed and needed suture per patient INJECT DX/THER SUBSTANCE INTERLAMINAR LUMBAR/SACRAL W IMAGE GUIDE 05/01/2022 INJECTION SPINE LUMBAR OR SACRAL performed by Ezequiel Portillo DO at OR [facility] INJECT DX/THER SUBSTANCE INTERLAMINAR LUMBAR/SACRAL W IMAGE GUIDE 10/23/2022 INJECTION SPINE LUMBAR OR SACRAL performed by Ezequiel Portillo DO at OR [facility] LAPAROSCOPY; CHOLECYSTECTOMY 10/07/2021 done through ED at [facility] by Dr Jean Claude Givens LAPAROSCOPY; REPAIR INITIAL INGUINAL HERNIA Right 05/02/2023 LAPAROSCOPIC REPAIR INGUINAL HERNIA INITIAL performed by Jean Claude Givens MD at OR [facility] LASERING OF SECONDARY CATARACT LUMBAR SPINE FUSION, POST INTERBODY 1990 Discectomy MISCELLANEOUS ORDER ([facility] ONLY) Left 02/01/2019 excision LLL lesion and biopsy, Dr. Wilson [place] RMVL LUNG OTHER THAN PNEUMONECTOMY 1 LOBE LOBECT Left 04/24/2022 Post Mohs repair OS, Dr. Wilson RECONSTRUCT/REPLACE SHOULDER JOINT 1997, 2012 Bilateral shoulders REMOVAL OF TONSILS, UNDER AGE 12 REMOVE CATARACT, INSERT LENS PROSTH Bilateral [place] Current Outpatient Medications Medication Sig Dispense Refill M-VIT PO TABS one a day VITAMIN B 12 100 MCG PO LOZG one a day acetaminophen (TYLENOL) 325 MG Tablet Take 2 Tablets by mouth every 6 hours as needed for Pain. Magnesium Oxide 400 (240 Mg) MG Oral Tablet Take 1 Tablet by mouth in the morning. Amoxicillin 500 MG Oral Capsule (Amoxil) TAKE 4 CAPSULES BY MOUTH 1 HOUR PRIOR TO APPOINTMENT 4 Capsule 1 metFORMIN HCl 1000 MG Oral Tablet (Glucophage) TAKE 1 TABLET BY MOUTH TWICE A DAY WITH BREAKFAST AND DINNER (Patient taking differently: TAKE 1 TABLET BY MOUTH TWICE A DAY WITH BREAKFAST AND DINNER) 180 Tablet 3 Vitamin D3 50 MCG (2000 UT) Oral Capsule Take 1 Capsule by mouth in the morning. Probiotic 1-250 BILLION-MG Oral Capsule Take by mouth. OneTouch Verio In Vitro Strip (Glucose Blood) USE UP TO 3 TIMES A DAY E11.9 300 Strip 1 Glucose Blood In Vitro Strip USE UP TO THREE TIMES A DAY 300 Strip 1 Rosuvastatin Calcium 40 MG Oral Tablet (Crestor) TAKE ONE TABLET BY MOUTH EVERY DAY (Patient takingdifferently: Take 1 Tablet by mouth in the morning.) 90 Tablet 3 Pantoprazole Sodium 40 MG Oral Tablet Delayed Release (Protonix) TAKE ONE TABLET BY MOUTH EVERY MORNING AND TAKE ONE TABLET BY MOUTH AT BEDTIME (Patient taking differently: Take 1 Tablet by mouth in the morning and 1 Tablet before bedtime.) 200 Tablet 3 Fluticasone-Salmeterol 250-50 MCG/ACT Inhalation Aerosol Powder Breath Activated (Advair Diskus) INHALE ONE PUFF BY MOUTH TWICE A DAY-MORNING AND BEFORE BEDTIME. RINSE MOUTH WELL AFTER EACH USE 180 Each 1 Insulin Pen Needle 32G X 4 MM USE ONCE DAILY 100 Each 3 Sertraline HCl 50 MG Oral Tablet (Zoloft) TAKE 1 TABLET BY MOUTH EVERYDAY AT BEDTIME 90 Tablet 2 OneTouch Delica Plus [id number] Test up to four times daily 400 Each 1 Aspirin 81 MG Oral Tablet Delayed Release (Aspirin 81) Take 1 Tablet by mouth in the morning. Metamucil Fiber 51.7 % Oral Packet (Psyllium) Take by mouth. Latanoprost 0.005 % Ophthalmic Solution (Xalatan) INSTILL ONE DROP INTO BOTH EYES EVERY NIGHT 7.5 mL 3 Gabapentin 300 MG Oral Capsule (Neurontin) TAKE TWO CAPSULES BY MOUTH TWICE A DAY -- IN THE MORNINGAND BEFORE BEDTIME 400 Capsule 1 Tamsulosin HCl 0.4 MG Oral Capsule (Flomax) Take 2 Capsules by mouth in the morning. 200 Capsule 3 Metoprolol Succinate ER 25 MG Oral Tablet Extended Release 24 Hour (toPROL XL) TAKE ONE-HALF TABLETBY MOUTH IN THE MORNING 45 Tablet 3 Pramipexole Dihydrochloride 0.25 MG Oral Tablet (Mirapex) TAKE ONE TABLET BY MOUTH AT BEDTIME 100 Tablet 3 Potassium Chloride Angélica ER 10 MEQ Oral Tablet Extended Release Take 1 Tablet by mouth daily. 90 Tablet 3 Lantus SoloStar 100 UNIT/ML Subcutaneous Solution Pen-injector INJECT 15 UNITS UNDER THE SKIN DAILY15 mL 2 traMADol HCl 50 MG Oral Tablet (Ultram) Take 1 Tablet by mouth every 6 hours as needed for Severe pain. 60 Tablet 0 No current facility-administered medications for this visit. Review of patient's allergies indicates: No Known Allergies ROS: CONSTITUTIONAL: Denies anorexia, weight loss, fever, night sweats. RESPIRATORY: Denies shortness of breath, wheezing, productive cough. CARDIOVASCULAR: Denies chest pains, irregular heartbeat. HEME: Denies easy bruising and anticoagulation use. ROS EXAM: Remainder of ROS negative as discussed above in the HPI. PHYSICAL EXAM: There were no vitals taken for this visit. GENERAL: WD/WN male who is awake and alert. Does not appear to be in acute distress. MENTAL STATUS: Oriented x 3. Pleasant and cooperative with normal affect. LUMBAR SPINE: No gross abnormalities. Skin is intact. No lesions visualized. Midline and B paravertebral musculature nontender. + RIGHT sacroiliac joint tenderness. Mildly limited active ROM with flexion and extension of the lumbar spine. Lumbar facet loading: positive bilaterally. Straight leg raise: positive bilaterally, R> L. RITU: positive R, negative L. STRENGTH: 5/5 in all major motor groups lower extremities bilaterally. SENSATION: Not formally tested. No gross sensory deficits lower extremities bilaterally. GAIT/COORDINATION: Gait is intact. Ambulates without assistance. ASSESSMENT: Lumbar radicular pain Spinal stenosis with neurogenic claudication SI joint dysfunction RECOMMENDATION: Chronic low back pain with progression in the past few months, no injury. Hx of SURJIT with benefit. Discussed repeat SURJIT using fluoroscopy. Risks including, but not limited to epidural hematoma, infection, worsening pain, failure to alleviate pain, nerve injury and possible steroid side effects were reviewed. Pre-procedure instructions reviewed, reiterated need for special needs bus driver, stop advil three days prior. Encouraged to monitor blood glucose following injection. Due to severity and duration of symptoms, will schedule right interlaminar SURJIT L5/S1. Follow up six weeks after procedure. He questions if gabapentin can be futher increased. Managed by PCP (although previous prescribing provider has retired,) using 600 mg BID. Can message PCP regarding this. Will leave to their discretion, reviewed my concern with age/fall risk. Consider R SI joint injection if R buttock pain continues. Significant TTP. I spent a total of 20-29 minutes (exact time 27 mins) on the date of service in preparation, delivery, and documentation of the care provided to Vahe Resendez excluding any time spent in the performance of separately billed services. Saige Preston PA-C 07/21/2023 documented in this encounter Nursing Notes * Yolette Lane LPN - 07/21/2023 10:42 AM EDT Patient here for low back and right hip pain, unsure if it radiates into right lower leg, states he"goes down" when it happens documented in this encounter Plan of Treatment Upcoming Encounters Date Type Department Care Team (Latest Contact Info) Description 08/26/2023 7:15 AM EDT Cardiac Studies Cardiac Studies, [address] [place] [address] 08/26/2023 9:15 AM EDT [facility] [address] [place] [address] Gw, Excess Time Radiology [address] [place] [address] 08/29/2023 9:40 AM EDT Office Visit Podiatry [facility] [address] [place] [address] Melinda Stallworth, DPGermán [address] [facility] [place] [address] 10/01/2023 10:55 AM EDT Hospital Encounter OR [facility], Operating Room [facility] [address] [place] [phone] David Morales, DO [address] [place] [phone] 10/01/2023 10:55 AM EDT - 10/01/2023 11:20 AM EDT Surgery OR [facility], Operating Room [facility] [address] [place] [phone] David Morales, DO [address] [place] [phone] INJECTION SPINE LUMBAR OR SACRAL 02/13/2024 9:30 AM EDT Office Visit Family Medicine [address] [place] [phone] Sakshi Barros [address] [place] [address] 06/16/2024 10:20 AM EST Office Visit Dermatology [address] [place] [address] Charline Hurst PA-C [address] [place] [address] [place] [id number] Scheduled Orders Name Type Priority Associated Diagnoses Orde r Schedule INJECT DX/THER SUBSTANCE INTERLAMINAR LUMBAR/SACRAL W IMAGE GUIDE Procedures Routine Spinal stenosis of lumbar region with neurogenic claudication Lumbar radicular pain Expected: 08/21/2023 (Approximate), Expires: 08/20/2024 Scheduled Procedures Name Priority Associated Diagnoses Date/Ti [...] Completed 08/08/2017, 01/19/2016 Zoster Vaccines Completed 01/14/2019, 09/0 04/2018, 11/12/2018 COVID-19 Vaccine Completed 02/24/2023, , [...] this encounter Medical Devices Implanted Type Area Contract Graphic Designer Device Identifier Shelf Expiration Date Model / Serial / Lot Mesh 3dmax 3.1x5.3in t Med - [id number] Implanted:Qty: 1 on 05/02/2023 by Jean Claude Givens MD at OR [facility] Right: Groin CR BARD : DAVOL 03/25/2027 [id number] / / [id number] documented as of this encounter Visit Diagnoses Diagnosis Spinal stenosis of lumbar region with neurogenic claudication- Primary Spinal stenosis, lumbar region, with neurogenic claudication Lumbar radicular pain Thoracic or lumbosacral neuritis or radiculitis, unspecified Sacroiliitis (HCC) Sacroiliitis, not elsewhere classified Spinal stenosis of lumbar region with neurogenic [...] Discussed due to patient's condition Care Teams Casing Cooker Relationship Specialty Start Date End Date Sakshi Barros DO [address] [place] [address] [place] [phone] PCP - General Internal Medicine 02/05/16 documented as of this encounter
--- OUTSIDE RECORDS SUMMARY | 2023-10-04 23:11 | External Medical Summary | Summary of Care ---
Author Name Unknown Organization [facility] Address [address] [facility] [place] [address] Phone [phone] Care Team Providers Care Director Of Consulting Services Name Role Phone BarrosSakshi austin Primary Care Provider Reason for Visit * Reason Onset Date Comments Medication Refill 09/02/2023 Encounter Details Date Type Department Care Team (Late st Contact Info) Description 07/10/2023 Refill Cardiology, [facility] [address] [place] [address] Brock Franz PA-C [address] [place] [address] HTN, goal below 140/90*; Hyperlipidemia with target LDL less than 70; Hypomagnesemia; AK (actinic keratosis) Allergies No known active allergiesdocumented as of this encounter (statuses as of 09/02/2023) Medications Medication Sig Dispensed Refills Start Date End Date Status M-VIT PO TABS one a day 0 Active VITAMIN B 12 100 MCG PO LOZG one a day 0 Active acetaminophen (TYLENOL) 325 MG TabletIndications:b ack pain Take 2 Tablets by mouth every 6 hours as needed for Pain. 0 Active Magnesium Oxide 400 (240 Mg) MG Oral Tablet Take 1 Tablet by mouth in the morning. 0 Active Amoxicillin 500 MG Oral Capsule (Amoxil)Indications :Status post total left knee replacement TAKE 4 CAPSULES BY MOUTH 1 HOUR PRIOR TO APPOINTMENT 4 Capsule 1 05/29/19 22 Active Vitamin D3 50 MCG (1999 UT) Oral Capsule Take 1 Capsule by mouth in the morning. 0 Active Probiotic 1-250 BILLION-MG Oral Capsule Take by mouth. 0 Active OneTouch Verio In Vitro Strip (Glucose Blood)Indications:T ype 2 diabetes mellitus with diabetic neuropathy, without long-term current use of insulin ([facility]) USE UP TO 3 TIMES A DAY E11.9 300 Strip 10/08/19 Active Glucose Blood In Vitro Strip USE UP TO THREE TIMES A DAY 300 Strip 10/10/19 024 Active Rosuvastatin Calcium 40 MG Oral Tablet (Crestor)Indication s:Hyperlipidemia with target LDL less than 70 TAKE ONE TABLET BY MOUTH EVERY DAY 90 Tablet 09/10/19 024 Active Additional Information Patient taking differently:40 mg Oral Daily(AM),Indications: cholesterol, Reported on 10/28/2022 Pantoprazole Sodium 40 MG Oral Tablet Delayed Release (Protonix)Indicatio ns:Alberto's esophagus without dysplasia TAKE ONE TABLET BY MOUTH EVERY MORNING AND TAKE ONE TABLET BY MOUTH AT BEDTIME 200 Tablet 09/10/19 024 Active Additional Information Patient taking differently:40 mg Oral BID (.AM/PM),Indications: stomach, Reported on 10/28/2022 Fluticasone-Salmete rol 250-50 MCG/ACT Inhalation Aerosol Powder Breath Activated (Advair Diskus)Indications: Asthma-COPD overlap syndrome (HCC) INHALE ONE PUFF BY MOUTH TWICE A DAY-MORNING AND BEFORE BEDTIME. RINSE MOUTH WELL AFTER EACH USE 180 Each 09/07/19 024 Active Insulin Pen Needle 32G X 4 MMIndications:DM type 2, goal HbA1c < 8% ([facility]) USE ONCE DAILY 100 Each 08/22/19 024 Active OneTouch Delica Plus [id number] s:Type 2 diabetes mellitus with diabetic neuropathy, without long-term current use of insulin ([facility]) Test up to four times daily 400 Each 12/27/19 Active Aspirin 81 MG Oral Tablet Delayed Release (Aspirin 81) Take 1 Tablet by mouth in the morning. 0 Active Metamucil Fiber 51.7 % Oral Packet (Psyllium) Take by mouth. 0 Active Latanoprost 0.005 % Ophthalmic Solution (Xalatan) INSTILL ONE DROP INTO BOTH EYES EVERY NIGHT 7.5 mL 3 03/14/20 23 Active Gabapentin 300 MG Oral Capsule (Neurontin) TAKE TWO CAPSULES BY MOUTH TWICE A DAY -- IN THE MORNING AND BEFORE BEDTIME 400 Capsule 1 04/22/20 23 024 Active Tamsulosin HCl 0.4 MG Oral Capsule (Flomax)Indications :BPH without obstruction/lower urinary tract symptoms,Ureteral stone Take 2 Capsules by mouth in the morning. 200 Capsule 3 04/30/19 24 Active Metoprolol Succinate ER 25 MG Oral Tablet Extended Release 24 Hour (toPROL XL)Indications:HTN, goal below 140/90 TAKE ONE-HALF TABLET BY MOUTH IN THE MORNING 45 Tablet 3 05/29/19 24 025 Active Pramipexole Dihydrochloride 0.25 MG Oral Tablet (Mirapex)Indication s:Restless legs syndrome TAKE ONE TABLET BY MOUTH AT BEDTIME 100 Tablet 3 06/20/19 24 025 Active Potassium Chloride Angélica ER 10 MEQ Oral Tablet Extended Release Take 1 Tablet by mouth daily. 90 Tablet 3 07/10/19 24 Active Additional Information Patient taking differently: 5 mEqOral Daily(Non-Specified), Reported on 08/29/2023 metFORMIN HCl 1000 MG Oral Tablet (Glucophage)Indicat ions:Type 2 diabetes mellitus with diabetic neuropathy, unspecified (HCC) TAKE 1 TABLET BY MOUTH TWICE A DAY WITH BREAKFAST AND DINNER 180 Tablet 3 07/09/19 23 024 Discontinued(Re fill) Lantus SoloStar 100 UNIT/ML Subcutaneous Solution Pen-injectorIndicat ions:DM type 2, goal HbA1c < 8% (HCC) INJECT 15 UNITS UNDER THE SKIN DAILY 15 mL 3 06/07/19 23 024 Discontinued(Re fill) Sertraline HCl 50 MG Oral Tablet (Zoloft)Indications :Anxiety TAKE 1 TABLET BY MOUTH EVERYDAY AT BEDTIME 90 Tablet 2 11/17/19 23 024 Discontinued(Re fill) traMADol HCl 50 MG Oral Tablet (Ultram)Indications :Spinal stenosis of lumbar region with neurogenic claudication Take 1 Tablet by mouth every 6 hours as needed for Severe pain. 60 Tablet 0 07/09/19 24 024 Discontinued(Re fill) Potassium Chloride Angélica ER 20 MEQ Oral Tablet Extended Release Take 1 Tablet by mouth in the morning. 90 Tablet 1 07/09/19 24 024 Discontinued documented as of this encounter (statuses as of 09/02/2023) Active Problems Problem Noted Date Diagnosed Date [...] Statin History of cholecystectomy 10/15/2021 Atherosclerosis of [place] co ronary artery without angina pectoris 05/29/2021 Last Assessment & Plan: Continue statin, metoprolol, lisinopril Not on aspirin due to GI bleeding Occupational exposure to other air contaminants 11/21/2020 Hypomagnesemia 11/10/2020 Recurrent major depressive disorder, in [facility] 05/22/2020 History of [place] (myocardial infarction) 05/22/2020 Primary open-angle glaucoma, left [...] as of this encounter (statuses as of 09/02/2023) Resolved Problems Problem Noted Date Diagnosed Date Resolved Date Absolute anemia 02/21/2021 06/12/2022 Abnormal thyroid blood test 03/30/2020 11/21/2020 Overview: From Dr. Nuñez. Will recheck through [employer] next time he is seen. Major depressive [...] range 120 to 150. Last hemoglobin A1c 7.22735 continue metformin, Lantus Rectal bleeding 02/05/2016 01/10/2017 Overview: Had EGD/colonoscopy Acute blood loss anemia 02/05/201612/27 HTN, goal below 140/90 02/05/201601/10 Neuropathy 02/05/2016 01/10/2017 AK (actinic keratosis) 01/12/201401/10 Overview: Efudex (Salina Vazquez)- 04/2014 documented as of this encounter (statuses as of 09/02/2023) Immunizations Name Administration Dates Next Due COVID-19 mRNA, LNP-s, No Pre serve, 2-Dose Series ([employer]) 04/05/2021,07/04/2020,06/13/2020 COVID-19, MRNA-LNP, 23-24, P F, 30 [...] encounter Miscellaneous Notes * Telephone Encounter - Brock Franz PA-C - 07/10/2023 2:00 PM EDTSigned Prescriptions: Disp Refills Potassium Chloride Angélica ER 10 MEQ Oral Tab*90 Tab*3 Sig: Take 1 Tablet by mouth daily. Authorizing Provider: BROCK FRANZ * Telephone Encounter - Ynes Astorga CMA - 07/10/2023 1:45 PM EDT Spoke with pt. Pt aware of results and recommendations. Lab order placed for repeat potassium. * Telephone Encounter - Ynes Astorga CMA - 07/10/2023 1:44 PM EDT ----- Message from Brock Franz PA-C sent at 07/10/2023 11:31 AM EDT ----- Decrease potassium chloride dosing from 20 mEq/day to 10 mEq/day Repeat a potassium level in about 10 days. documented in this encounter Plan of Treatment Upcoming Encounters Date Type Department Care Team (Latest Contact Info) Description 09/05/2023 9:40 AM EDT Hospital Encounter [facility], Operating Room [facility] [address] [place] [phone] David Morales, [address] [place] [address] 09/05/2023 9:40 AM EDT - 09/05/2023 10:05 AM EDT Surgery OR [facility], Operating Room [facility] [address] [place] [phone] David Morales, [address] [place] [address] INJECTION SPINE LUMBAR OR SACRAL 12/01/2023 10:00 AM EDT Office Visit Podiatry [facility] [address] [place] [address] Melinda Stallworth, DPGermán [address] [facility] [place] [phone] 01/27/2024 8:00 AM EDT Office Visit Cardiology [address] [place] [address] Brock Franz PA-C [address] [place] [address] 02/13/2024 9:30 AM EDT Office Visit Family Medicine [address] [place] [phone] Sakshi Barros [address] [place] [address] 06/16/2024 10:20 AM EST Office Visit Dermatology [address] [place] [address] Charline Hurst PA-C [address] [place] [address] [place] [address] Scheduled Orders Name Type Priority Associated Diagnoses Orde r Schedule POTASSIUM Lab Routine HTN, goal below 140/90 Hyperlipidemia with target LDL less than 70 Hypomagnesemia Expected: 07/17/2023 (Approximate), Expires: 07/09/2024 Scheduled Procedures Name Priority Associated Diagnoses Date/Ti me INJECTION SPINE LUMBAR OR SACRAL Spinal stenosis of lumbar region with neurogenic claudication 09/05/2023 9:40 AM EDT ESOPHAGOGASTRODUODENOSCOPY ( EGD), FLEXIBLE, TRANSORAL, DIAGNOSTIC Recall Alberto's esophagus with esophagitis COLONOSCOPY FLEXIBLE PROXIMA L DIAGNOSTIC Recall Screening for colon cancer Health Maintenance Due Date Last Done Comments Alpha-1 Antitrypsin 01/16/1964 Albumin/Creatinine Ratio 06/12/20232 023, 03/06/2022, 12/04/2021, Additional history exists Diabetic [...] 01/19/2016 Zoster Vaccines Completed 01/14/2019, 0904/2018, 11/12/2018 COVID-19 Vaccine Completed 02/24/2023, , 04/05/2021, [...] this encounter Medical Devices Implanted Type Area Fashion Marketer Device Identifier Shelf Expiration Date Model / Serial / Lot Mesh 3dmax 3.1x5.3in t Med - [id number] Implanted:Qty: 1 on 05/02/2023 by Jean Claude Givens MD at OR [facility] Right: Groin CR BARD : DAVOL 03/25/2027 [id number] / / [id number] documented as of this encounter Visit Diagnoses Diagnosis HTN, goal below 140/90- Primary Unspecified essential hypertension Hyperlipidemia with target LDL less than 70 Other and unspecified hyperlipidemia Hypomagnesemia Disorders of magnesium metabolism AK (actinic keratosis) Actinic keratosis Spinal stenosis of lumbar region with neurogenic [...] Discussed due to patient's condition Care Teams Director Of Consulting Services Relationship Specialty Start Date End Date Sakshi Barros DO [address] [place] [address] [place] [phone] PCP - General Internal Medicine 02/05/16 documented as of this encounter
--- OUTSIDE RECORDS SUMMARY | 2023-10-04 23:11 | External Medical Summary | Summary of Care ---
Author Name Unknown Organization [facility] Address [address] [facility] [place] [address] Phone [phone] Care Team Providers Care Conflicts Analyst Name Role Phone Cindy Sinclair DO Primary Care Provider + [phone] Reason for Visit * Reason Onset Date Comments Medication Refill 08/11/2023 Encounter Details Date Type Department Care Team (Late st Contact Info) Description 08/11/2023 Refill Family Medicine [address] [place] [phone] Cindy Sinclair DO [address] [place] [address] [place] [address] Anxiety Allergies No known active allergiesdocumented as of this encounter (statuses as of 08/12/2023) Medications Medication Sig Dispensed Refills Start Date [...] TO THREE TIMES A DAY 300 Strip 3 10/09/19 24 Active Rosuvastatin Calcium 40 [...] BY MOUTH AT BEDTIME 200 Tablet 3 09/27/19 24 Active Additional Information Patient taking differently:40 mg Oral BID (.AM/PM),Indications: stomach, Reported on 10/28/2022 Fluticasone-Salmeter ol 250-50 MCG/ACT Inhalation Aerosol Powder Breath Activated (Advair Diskus)Indications:A sthma-COPD overlap syndrome (HCC) INHALE ONE PUFF BY MOUTH TWICE A DAY-MORNING AND BEFORE BEDTIME. RINSE MOUTH WELL AFTER EACH USE 180 Each 3 09/06/19 24 Active Insulin Pen Needle 32G X 4 MMIndications:DM type 2, goal HbA1c < 8% ([facility]) USE ONCE DAILY 100 Each 3 3 10/27/19 24 Active OneTouch Delica Plus [id number] :Type 2 diabetes mellitus with diabetic neuropathy, [...] AT BEDTIME 90 Tablet 2 4 Active Sertraline HCl 50 MG Oral Tablet (Zoloft)Indications: Anxiety TAKE 1 TABLET BY MOUTH EVERYDAY AT BEDTIME 90 Tablet 2 3 08/11/19 24 Discontinu ed(Refill) documented as of this encounter (statuses as of 08/12/2023) Active Problems Problem Noted Date Diagnosed Date [...] Statin History of cholecystectomy 10/15/2021 Atherosclerosis of [place] co ronary artery without angina pectoris 05/29/2021 Last Assessment & Plan: Continue statin, metoprolol, lisinopril Not on aspirin due to GI bleeding Occupational exposure to other air contaminants 11/21/2020 Hypomagnesemia 11/10/2020 Recurrent major depressive disorder, in [facility] 05/22/2020 History of [place] (myocardial infarction) 05/22/2020 Primary open-angle glaucoma, left [...] as of this encounter (statuses as of 08/12/2023) Resolved Problems Problem Noted Date Diagnosed Date Resolved Date Absolute anemia 02/21/2021 06/12/2022 Abnormal thyroid blood test 03/30/2020 11/21/2020 Overview: From Dr. Nuñez. Will recheck through [employer] next time he is seen. Major depressive [...] range 120 to 150. Last hemoglobin A1c 7.44097 continue metformin, Lantus Rectal bleeding 02/05/2016 01/10/2017 Overview: Had EGD/colonoscopy Acute blood loss anemia 02/05/201612/27 HTN, goal below 140/90 02/05/201601/10 Neuropathy 02/05/2016 01/10/2017 AK (actinic keratosis) 01/12/201401/10 Overview: Efudex (Salina Vazquez)- 04/2014 documented as of this encounter (statuses as of 08/12/2023) Immunizations Name Administration Dates Next Due COVID-19 mRNA, LNP-s, No Pre serve, 2-Dose Series ([employer]) 04/05/2021,07/04/2020,06/13/2020 COVID-19, MRNA-LNP, 23-24, P F, 30 [...] Telephone Encounter - Cindy Sinclair DO - 08/12/2023 8:29 AM EDTSigned Prescriptions: Disp Refills Sertraline HCl 50 MG Oral Tablet (Zoloft) 90 Tab*2 Sig: TAKE 1 TABLET BY MOUTH EVERYDAY AT BEDTIME Authorizing Provider: CINDY SINCLAIR * Telephone Encounter - Chelsy Main RN - 08/11/2023 3:13 PM EDTPending Prescriptions: Disp Refills Sertraline HCl 50 MG Oral Tablet (Zoloft) 90 Tab*2 Sig: TAKE 1 TABLET BY MOUTH EVERYDAY AT BEDTIME * Telephone Encounter - Jolene Guzman, ABIGAIL - 08/11/2023 1:51 PM EDT Did you pend patient's preferred pharmacy and medication before forwarding?yes Pharmacy: [id number] [id number] [facility] Pending Prescriptions: Disp Refills Sertraline HCl 50 MG Oral Tablet (Zoloft) 90 Tab*2 Sig: TAKE 1 TABLET BY MOUTH EVERYDAY AT BEDTIME Last Visit: 07/09/2023 (in office), Visit date not found (telemedicine) Next Visit: 02/13/2024 If no future appointments scheduled, and last appointment is greater than a year ago, please schedule patient for a follow-up appointment Last date the medication was ordered: 11/16/22 Is this request for a controlled substance?No [...] AM EDT Cardiac Studies Cardiac Studies, [facility] [address] [place] [address] 08/26/2023 9:15 AM EDT Imaging [facility] 2nd Floor Cardiology, [place] [address] [place] [address] Gw, Excess Time Radiology [address] [place] [address] 08/29/2023 9:40 AM EDT Office Visit Podiatry [facility] [address] [place] [address] Melinda Stallworth, DP [address] [facility] [place] [address] 09/24/2023 9:40 AM EDT Hospital Encounter OR [facility], Operating Room [facility] [address] [place] [phone] David Morales, [address] [place] [phone] 09/24/2023 9:40 AM EDT - 09/24/2023 10:05 AM EDT Surgery OR [facility], Operating Room [facility] [address] [place] [phone] David Morales, DO [address] [place] [address] INJECTION SPINE LUMBAR OR SACRAL 02/13/2024 9:30 AM EDT Office Visit Family Medicine [address] [place] Cindy Sinclair [address] [place] [address] 06/16/2024 10:20 AM EST Office Visit Dermatology [address] [place] [address] Charline Hurst PA-C [address] [place] [address] [place] [address] Scheduled Procedures Name Priority Associated Diagnoses Date/Ti [...] this encounter Medical Devices Implanted Type Area Auxiliary Equipment Tender Device Identifier Shelf Expiration Date Model / Serial / Lot Mesh 3dmax 3.1x5.3in t Med - [id number] Implanted:Qty: 1 on 05/02/2023 by Jean Claude Givens MD at OR [facility] [address] Right: Groin CR BARD : DAVOL 03/25/2027 [id number] / / [id number] documented as of this encounter Visit Diagnoses Diagnosis Anxiety Anxiety state, unspecified Spinal stenosis of lumbar region with neurogenic [...] Discussed due to patient's condition Care Teams Conflicts Analyst Relationship Specialty Start Date End Date Cindy Sinclair DO [address] [place] [address] [place] [address] PCP - General Internal Medicine 02/05/16 documented as of this encounter
--- OUTSIDE RECORDS SUMMARY | 2023-10-04 23:11 | External Medical Summary | Summary of Care ---
Author Name Unknown Organization [facility] Address [address] [place] [address] Phone [phone] Care Team Providers Care Math Professor Name Role Phone Sakshi Barros Primary Care Provider [phone] Reason for Visit * Reason Onset Date Comments FYI 08/21/2023 Encounter Details Date Type Department Care Team (Late st Contact Info) Description 08/21/2023 Telephone Care Coordination and Integration [address] [place], [place] [phone] Lynne Hermosillo RN [address] [place], [place] [phone] FYI Allergies No known active allergiesdocumented as [...] MMIndications:DM type 2, goal HbA1c < 8% ([facility]) USE ONCE DAILY 100 Each 3 08/21/2022 4 Active OneTouch Delica Plus [id number]: Type 2 diabetes mellitus with diabetic neuropathy, without long-term current use of insulin ([facility]) Test up to four times daily [...] Statin History of cholecystectomy 10/15/2021 Atherosclerosis of [place] co ronary artery without angina pectoris 05/29/2021 Last Assessment & Plan: Continue statin, metoprolol, lisinopril Not on aspirin due to GI bleeding Occupational exposure to other air contaminants 11/21/2020 Hypomagnesemia 11/10/2020 [facility] 05/22/2020 History of [place] (myocardial infarction) 05/22/2020 Primary open-angle glaucoma, left [...] Overview: From Dr. Nuñez. Will recheck through [employer] next time he is seen. Major depressive [...] range 120 to 150. Last hemoglobin A1c 7.22881 continue metformin, Lantus Rectal bleeding 02/05/2016 01/10/2017 Overview: Had EGD/colonoscopy Acute blood loss anemia 02/05/201612/27 HTN, goal below 140/90 02/05/201601/10 Neuropathy 02/05/2016 01/10/2017 AK (actinic keratosis) 01/12/201401/10 Overview: Efudex (Salina Vazquez)- 04/2014 documented as of this encounter (statuses as of 08/26/2023) Immunizations Name Administration Dates Next Due COVID-19 mRNA, LNP-s, No Pre serve, 2-Dose Series ([facility]) 04/05/2021,07/04/2020,06/13/2020 COVID-19, MRNA-LNP, 23-24, P F, 30 [...] 08/29/2023 9:40 AM EDT Office Visit Podiatry [facility] [address] [facility] [place] [address] Melinda Stallworth DPM [address] [facility] [place] [address] 09/05/2023 9:40 AM EDT Hospital Encounter OR [facility], Operating Room [facility] [address] [place] [phone] David Morales, DO [address] [place] [address] 09/05/2023 9:40 AM EDT - 09/05/2023 10:05 AM EDT Surgery OR [facility], Operating Room [facility] [address] [place] [phone] David Morales, DO [address] [place] [phone] INJECTION SPINE LUMBAR OR SACRAL 02/13/2024 9:30 AM EDT Office Visit Family Medicine [address] [place] [phone] Sakshi Barros, [address] [place] [address] 06/16/2024 10:20 AM EST Office Visit Dermatology [address] [place] [address] Charline Hurst PA-C [address] [place] [address] [place] [address] Scheduled Procedures Name Priority Associated Diagnoses Date/Ti [...] this encounter Medical Devices Implanted Type Area Rodbuster Device Identifier Shelf Expiration Date Model / Serial / Lot Mesh 3dmax 3.1x5.3in Rust Med - [id number] Implanted:Qty: 1 on 05/02/2023 by Jean Claude Givens MD at OR [facility] Right: Groin CR BARD : DAVOL 03/25/2027 [id number] / / [id number] documented as of this encounter Advance Directives [...] Discussed due to patient's condition Care Teams Math Professor Relationship Specialty Start Date End Date Sakshi Barros DO [address] [place] [address] [place] [address] PCP - General Internal Medicine 02/05/16 documented as of this encounter
--- OUTSIDE RECORDS SUMMARY | 2023-10-04 23:12 | External Medical Summary | Summary of Care ---
Author Name Unknown Organization [facility] Address [address] [facility] [place] [address] Phone [phone] Care Team Providers Care International Marketing Specialist Name Role Phone Cindy Sinclair DO Primary Care Provider [phone] Reason for Visit * Reason Comments Other Encounter Details Date Type Department Care Team (Late st Contact Info) Description 06/23/2023 2:00 PM EST Office Visit Dermatology [address] [place] [address] Charline Hurst PA-C [address] [place] [address] [place] [address] Irritant contact dermatitis due to drug in contact with skin*; Hx of nonmelanoma skin cancer; Actinic keratosis; 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 Allergies No known active allergiesdocumented as of this encounter (statuses as of 06/24/2023) Medications Medication Sig Dispensed Refills Start Date [...] HOUR PRIOR TO APPOINTMENT 4 Capsule 1 Active Additional Information Patient not taking.Reported on 05/02/2023 metFORMIN HCl 1000 MG Oral Tablet (Glucophage)Indicati ons:Type 2 diabetes mellitus with diabetic neuropathy, unspecified ([facility]) TAKE 1 TABLET BY MOUTH TWICE A DAY WITH BREAKFAST AND DINNER 180 Tablet 3 3 Active Additional Information Patient taking differently:, TAKE [...] MOUTH EVERY DAY 90 Tablet 3 3 09/09/19 24 Active Additional Information Patient taking differently:40 [...] Breath Activated (Advair Diskus)Indications:A sthma-COPD overlap syndrome INHALE ONE PUFF BY MOUTH TWICE A DAY-MORNING AND BEFORE BEDTIME. RINSE MOUTH WELL AFTER EACH USE 180 Each 1 3 09/06/19 24 Active Insulin Pen Needle 32G X 4 MMIndications:DM type 2, goal HbA1c < 8% ([facility]) USE ONCE DAILY 100 Each 3 3 08/21/19 24 Active Lantus SoloStar 100 UNIT/ML Subcutaneous Solution Pen-injectorIndicati ons:DM type 2, goal HbA1c < 8% ([facility]) INJECT 15 UNITS UNDER THE SKIN DAILY 15 mL 3 3 07/25/19 24 Active Additional Information Patient taking differently: 15 Units Subcutaneous ONCE, Reported on 04/29/2023 Sertraline HCl 50 MG Oral Tablet (Zoloft)Indications: Anxiety TAKE 1 TABLET BY MOUTH EVERYDAY AT BEDTIME 90 Tablet 2 3 Active OneTouch Delica Plus [id number] :Type 2 diabetes mellitus with diabetic neuropathy, without long-term current use of insulin ([facility]) Test up to four times daily 400 Each 1 3 Active Aspirin 81 MG Oral Tablet Delayed Release (Aspirin 81) Take 1 Tablet by mouth in the morning. 0 Active Metamucil Fiber 51.7 % Oral Packet (Psyllium) Take by mouth. 0 Active traMADol HCl 50 MG Oral Tablet (Ultram) Take 1 Tablet by mouth every 6 hours as needed for severe pain. 60 Tablet 0 3 Active Latanoprost 0.005 % Ophthalmic Solution (Xalatan) [...] 45 Tablet 3 4 05/28/19 25 Active Potassium Chloride Angélica ER 20 MEQ Oral Tablet Extended Release TAKE ONE TABLET BY MOUTH TWICE A DAY WITH MORNING AND EVENING MEALS 200 Tablet 1 4 06/10/19 25 Active Pramipexole Dihydrochloride 0.25 MG Oral Tablet (Mirapex)Indications :Restless legs syndrome TAKE ONE TABLET BY MOUTH AT BEDTIME 100 Tablet 3 4 06/19/19 25 Active Fluorouracil 5 % External Cream (Efudex) Apply thin layer to top of scalp and entire face (except for chin) 2x daily for 3 weeks and then send photos through [facility]My Chart at end of treatment. 40 g 1 4 06/23/19 24 Discontinu ed(End of Procedure) documented as of this encounter (statuses as of 06/24/2023) Active Problems Problem Noted Date Diagnosed Date Chronic right shoulder pain 08/05/2022 Last Assessment [...] Statin History of cholecystectomy 10/15/2021 Atherosclerosis of solomon co ronary artery without angina pectoris 05/29/2021 Last Assessment & Plan: Continue statin, metoprolol, lisinopril Not on aspirin due to GI bleeding Occupational exposure to other air contaminants 11/21/2020 Hypomagnesemia 11/10/2020 Recurrent major depressive disorder, in [facility] n 05/22/2020 History of [place] (myocardial infarction) 05/22/2020 Primary open-angle glaucoma, left [...] as of this encounter (statuses as of 06/24/2023) Resolved Problems Problem Noted Date Diagnosed Date Resolved Date Absolute anemia 02/21/2021 06/12/2022 Abnormal thyroid blood test 03/30/2020 11/21/2020 Overview: From Dr. Nuñez. Will recheck through [employer] next time he is seen. Major depressive [...] range 120 to 150. Last hemoglobin A1c 7.82412 continue metformin, Lantus Rectal bleeding 02/05/2016 01/10/2017 Overview: Had EGD/colonoscopy Acute blood loss anemia 02/05/201612/27 HTN, goal below 140/90 02/05/201601/10 Neuropathy 02/05/2016 01/10/2017 AK (actinic keratosis) 01/12/201401/10 Overview: Efudex (Salina Vazquez)- 04/2014 documented as of this encounter (statuses as of 06/24/2023) Immunizations Name Administration Dates Next Due COVID-19 mRNA, LNP-s, No Pre serve, 2-Dose Series ([place]) 04/05/2021,07/04/2020,06/13/2020 COVID-19, MRNA-LNP, 23-24, P F, 30 MCG/0.3 mL, 12 YRS AND ABOVE, IM ([employer]-Comirnaty) 02/24/2023 Pneumococcal Conjugate Vacc, 13 Valent (Prevnar) [...] on file documented as of this encounter Patient Instructions * Patient Instructions* Charline Hurst PA-C - 06/23/2023 2:17 PM EST SUNSCREEN USE AND SUN PROTECTION: 1. The best protection is sun avoidance. Seek shade if you can, especially between 10am to 4pm (peak sun hours). 2. Use sunscreen with an SPF (Sun Protection Factor - the number on most sunscreen bottles) of 30 or more that protects from Ultraviolet A (UVA) and Ultraviolet B (UVB) wavelength light (strongly recommend SPF 50). This is referred to as broad spectrum sun protection because it protects from most wa velengths in both spectrums of UVA and UVB light. Unfortunately, even though the protection is broad it is not complete, therefore making sun avoidance the best protection. UVB and UVA have both beenimplicated in causing skin cancers. Older sunscreens only protected from UVB and sunscreens with added UVA protection should contain Titanium dioxide, Zinc oxide, or Avobenzone. Other oil free, non-comedogenic lotion with SPF 30 or greater is fine. 3. Use sun protection if outside for 15 minutes or more. Apply 20-30 minutes before going out and reapply every 1-2 hours. No sunscreen is truly water ''proof'' and it will wash away with sweat, swimming and rubbing. 4. Wear tightly woven, loose fitting (cooler) long sleeved clothing, UV-blocking sun glasses (eyes need protection as well) and wide-brimmed hatwear (no straw hats with holes because light still getsthrough). Strongly recommended *Neutrogena Pure and Free Baby SPF 60 (have separate face and body lotions) orCeraVe AM facial lotion (with SPF 30). If looking for non toxic alternatives-look for non-em particle zinc. Product examples; Think sport, Think baby, [place], [employer], [employer], [place] baby. "Baby" products can be used for all ages. documented in this encounter Progress Notes * Jarrod Hamm MD - 06/24/2023 8:07 AM EST I have seen and examined the patient via teledermatology review of chart note and photos with Charline Hurst PA-C. I have reviewed and agree with the assessment and plan. * Charline Hurst PA-C - 06/23/2023 2:00 PM EST SUBJECTIVE: History of Present Illness: Vahe Resendez is a 78 year old male seen today for re-shave/curettage of SCCIS (plan)/ Efudex f/u Previous appointment date: 06/04/2023 Last attempted treatments include: bx x 1 (at least SCCIS) Full skin exam 06/21 Due to some miscommunication, pt treated the biopsy spot where we intended to re-shave the SCCIS for possible invasion. + redness, not much itch, burn, sting, no systemic symptoms. REVIEW OF SYSTEMS: SKIN: No other new or changing moles. HEME/LYMPH: No new or enlarging lumps or bumps. CONSTITUTIONAL: No nausea, vomiting, fevers, chills, diarrhea. No recent unintended weight loss, night sweats, appetite or malaise. RESP: negative MSK/EXT: Negative or as per HPI GI: negative CV: Negative or as per HPI Rest of systems are negative or as per HPI SKIN CANCER HX: squamous cell carcinoma (L nare), basal cell carcinoma (L nare), Aleksander (L lower eyelid 02/13), squamous cellcarcinoma in situ (L post auricular region 06/2020, R lateral cheek 06/21), actinic keratoses (scalp/face 06/21) Reviewed, same day as visit, 0 [facility] Dermatology lab work(s)/pathology report(s) as well as those sent by referring provider prior to seeing pt. MEDICA TIONS: Current Outpatient Medications Medication Sig Dispense Refill [...] BY MOUTH 1 HOUR PRIOR TO APPOINTMENT (Patient not taking: Reported on 05/02/2023) 4 Capsule 1 metFORMIN HCl 1000 MG [...] MM USE ONCE DAILY 100 Each 3 Lantus SoloStar 100 UNIT/ML Subcutaneous Solution Pen-injector INJECT 15 UNITS UNDER THE SKIN DAILY(Patient taking differently: Inject 15 Units under the skin once.) 15 mL 3 Sertraline HCl 50 MG Oral Tablet (Zoloft) TAKE 1 TABLET BY MOUTH EVERYDAY AT BEDTIME 90 Tablet 2 OneTouch Delica Plus [id number] Test up to four times daily 400 Each 1 Aspirin 81 MG Oral Tablet Delayed Release (Aspirin 81) Take 1 Tablet by mouth in the morning. Metamucil Fiber 51.7 % Oral Packet (Psyllium) Take by mouth. traMADol HCl 50 MG Oral Tablet (Ultram) Take 1 Tablet by mouth every 6 hours as needed for severe pain. 60 Tablet 0 Latanoprost 0.005 % Ophthalmic Solution (Xalatan) INSTILL [...] MOUTH IN THE MORNING 45 Tablet 3 Fluorouracil 5 % External Cream (Efudex) Apply thin layer to top of scalp and entire face (except for chin) 2x daily for 3 weeks and then send photos through My [employer] Chart at end of treatment. 40 g 1 Potassium Chloride Angélica ER 20 MEQ Oral Tablet Extended Release TAKE ONE TABLET BY MOUTH TWICE A DAYWITH MORNING AND EVENING MEALS 200 Tablet 1 Pramipexole Dihydrochloride 0.25 MG Oral Tablet (Mirapex) TAKE ONE TABLET BY MOUTH AT BEDTIME 100 Tablet 3 No current facility-administered medications for this visit. ALLERG IES: Patient has noknown allergies. OBJECT JAC: GEN: alert, no distress, appears oriented, pleasant, and cooperative. SKIN: Detailed exam of face including lids and lips completed: 1A. R lateral cheek-Was 1.0x0.9cm pink centrally depressed and indurated plaque with rolled borders, now erythematous scaly eroded papule amongst scattered and coalesced erythematous scaly papules and plaques. ASSESS MENT/PLAN: 1A. Skin, R lateral cheek, shave: Squamous cell carcinoma in-situ, at least (see comment) Comment: In these sections, invasive carcinoma is not identified; however, the base of the lesion is partially transected, focally limiting assessment for a more proliferative process. Irritant contact dermatitis on face/scalp secondary to Efudex for SCCIS on R cheek and actinic keratoses-D/c medication and start applying vaseline several times daily to treatment areas to keep themmoist. Wear wide brim hat and sunscreen with at least 50 SPF. Patient educated that redness will start to improve/resolve in months. -Will recheck R cheek area in upcoming months and plan on re-shave then if clinically warranted. Patient alone today. Photo(s) of #1 taken, pt verbally consented to having photo(s) taken. Follow-up: 3-4 months for AK/SCCIS f/u Applicable photos (if any) and chart reviewed by Dr. Jarrod Hamm. Presumed diagnoses, expected natural histories, and management options discussed with the patient at length. Questions were addressed and anticipatory guidance provided. They were instructed to contact me if additional questions, concerns, or problems develop in the interim. -There were no barriers to learning and no other pain was related to today's visit. The patient and/or person accompanying patient demonstrates understanding of the visit and treatment. Charline Hurst PA-C 06/23/2023 1:56 PM Ref: SELF[[id number]] NO STREET ADDRESS AVAILABLE None (office) None (fax) PCP: CINDY SINCLAIR [address] [place] [address] [place] [address] [phone] documented in this encounter Nursing Notes * Yuko Ludwig LPN - 06/23/2023 2:06 PM EST Chief Complaint Patient presents with Other documented in this encounter Plan of Treatment Upcoming Encounters Date Type Department Care Team (Late st Contact Info) Description 07/09/2023 10:30 AM EDT Office Visit Family Medicine [address] [place] [phone] [place] [address] 07/21/2023 11:00 AM EDT Office Visit Interventional Pain Center, [facility] [address] [place] [address] Saige Preston PA-C [address] [place] [address] 08/26/2023 7:15 AM EDT Cardiac Studies Cardiac Studies, [facility] [address] [place] [address] 08/26/2023 8:15 AM EDT Imaging [facility] II 2nd Floor Cardiology, [place] [address] [place] [address] Gw, Excess Time Radiology [address] [place] [address] 08/29/2023 9:40 AM EDT Office Visit Podiatry [facility] [address] [place] [address] Melinda Stallworth, DPM [address] [place] [address] [place] [address] 06/16/2024 10:20 AM EST Office Visit Dermatology [address] [place] [address] Charline Hurst PA-C [address] [place] [address] [place] [address] Scheduled Procedures Name Priority Associated Diagnoses Date/Ti me ESOPHAGOGASTRODUODENOSCOPY ( EGD), FLEXIBLE, TRANSORAL, DIAGNOSTIC Recall Alberto's esophagus with esophagitis COLONOSCOPY FLEXIBLE PROXIMAL DIAGNOSTIC Recall Screening for colon cancer Health Maintenance Due Date Last Done Comments Alpha-1 Antitrypsin 01/16/1963 Depression Screening 02/21/2022 02/21/2021 Albumin/Creatinine Ratio 06/12/2023 023, 03/06/2022, 12/04/2021, Additional history exists B-12 06/12/2023 06/12/2022, 09/2020, 11/21/2020, Additional history exists Diabetic Eye Exam 09/25/2023 09/24/2022, , 09/24/2022, Additional history exists HbA1c 12/16/2023 06/17/2023, 11/28, 06/12/2022, Additional history exists Diabetic Foot Exam 12/26/2023 12/25/2022, 1 05/06/2021, 05/29/2021, Additional history exists O2 ASSESSMENT COMPLETED IN PAST YEAR FOR COPD 05/02/2024 05/02/2023 GFR 06/17/2024 06/17/2023, 11/26, 01/11/2022, Additional history exists Alberto's Esophagus Surveilance 03/04/2026 [...] this encounter Medical Devices Implanted Type Area Biochemical Development Engineer Device Identifier Shelf Expiration Date Model / Serial / Lot Mesh 3dmax 3.1x5.3in t Med - [id number] Implanted:Qty: 1 on 05/02/2023 by Jean Claude Givens MD at OR [facility] [address] Right: Groin CR BARD : DAVOL 03/25/2027 [id number] / / [id number] documented as of this encounter Visit Diagnoses Diagnosis Irritant contact dermatitis due to drug in contact with skin- Primary Contact dermatitis and other eczema due to drugs and medicines in contact with skin Hx of nonmelanoma skin cancer Personal history of other malignant neoplasm of skin Actinic keratosis 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
--- OUTSIDE RECORDS SUMMARY | 2023-10-04 23:12 | External Medical Summary | Summary of Care ---
Author Name Unknown Organization [facility] Address [address] [facility] [place] [address] Phone [phone] Care Team Providers Care Branch Operations Specialist Name Role Phone BarrosSakshi austin Primary Care Provider + [phone] Reason for Visit * Reason Comments Outpatient Testing Encounter Details Date Type Department Care Team (Late st Contact Info) Description 07/09/2023 11:30 AM EDT Laboratory Laboratory [address] [place] [phone] [place], Lab [address] [place] [address] HTN, goal below 140/90; Hypomagnesemia; Hyperlipidemia with target LDL less than 70; Diabetic polyneuropathy associated with type 2 diabetes mellitus (HCC); AK (actinic keratosis); 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; Type 2 diabetes mellitus with diabetic neuropathy, without long-term current use of insulin ([facility]) Allergies No known active allergiesdocumented as of this encounter (statuses as of 07/09/2023) Medications Medication Sig Dispensed Refills Start Date [...] diabetes mellitus with diabetic neuropathy, unspecified ([facility]) TAKE 1 TABLET BY MOUTH TWICE A [...] type 2, goal HbA1c < 8% ([facility]) USE ONCE DAILY 100 Each 3 08/21/2022 4 Active Lantus SoloStar 100 UNIT/ML Subcutaneous Solution Pen-injectorIndicati ons:DM type 2, goal HbA1c < 8% ([facility]) INJECT 15 UNITS UNDER THE SKIN DAILY 15 mL 3 06/07/2022 4 Active Additional Information Patient taking differently: 15 Units Subcutaneous ONCE, Reported on 04/29/2023 Sertraline HCl 50 MG Oral Tablet (Zoloft)Indications: Anxiety TAKE 1 TABLET BY MOUTH EVERYDAY AT BEDTIME 90 Tablet 2 11/16/2022 Active OneTouch Delica Plus [id number] :Type 2 diabetes mellitus with diabetic neuropathy, without long-term current use of insulin ([facility]) Test up to four times daily [...] BEDTIME 100 Tablet 3 06/20/2023 5 Active traMADol HCl 50 MG Oral Tablet (Ultram)Indications: Spinal stenosis of lumbar region with neurogenic claudication Take 1 Tablet by mouth every 6 hours as needed for Pain, Severe. 60 Tablet 0 07/09/2023 Active Potassium Chloride Angélica ER 20 MEQ Oral Tablet Extended Release Take 1 Tablet by mouth in the morning. 90 Tablet 1 07/09/2023 Active documented as of this encounter (statuses as of 07/09/2023) Active Problems Problem Noted Date Diagnosed Date [...] Statin History of cholecystectomy 10/15/2021 Atherosclerosis of unga co ronary artery without angina pectoris 05/29/2021 Last Assessment & Plan: Continue statin, metoprolol, lisinopril Not on aspirin due to GI bleeding Occupational exposure to other air contaminants 11/21/2020 Hypomagnesemia 11/10/2020 Recurrent major depressive disorder, in [facility] n 05/22/2020 History of [place] (myocardial infarction) 05/22/2020 Primary open-angle glaucoma, left [...] as of this encounter (statuses as of 07/09/2023) Resolved Problems Problem Noted Date Diagnosed Date Resolved Date Absolute anemia 02/21/2021 06/12/2022 Abnormal thyroid blood test 03/30/2020 11/21/2020 Overview: From Dr. Nuñez. Will recheck through [employer] next time he is seen. Major depressive [...] range 120 to 150. Last hemoglobin A1c 7.61424 continue metformin, Lantus Rectal bleeding 02/05/2016 01/10/2017 Overview: Had EGD/colonoscopy Acute blood loss anemia 02/05/201612/27 HTN, goal below 140/90 02/05/201601/10 Neuropathy 02/05/2016 01/10/2017 AK (actinic keratosis) 01/12/201401/10 Overview: Efudex (Salina Vazquez)- 04/2014 documented as of this encounter (statuses as of 07/09/2023) Immunizations Name Administration Dates Next Due COVID-19 mRNA, LNP-s, No Pre serve, 2-Dose Series ([employer]) 04/05/2021,07/04/2020,06/13/2020 COVID-19, MRNA-LNP, 23-24, P F, 30 [...] on file documented as of this encounter Plan of Treatment Upcoming Encounters Date Type Department Care Team (Late st Contact Info) Description 07/21/2023 11:00 AM EDT Office Visit Interventional Pain Center, [facility] [address] [place] [address] Saige Preston PA-C [address] [place] [address] 08/26/2023 7:15 AM EDT Cardiac Studies Cardiac Studies, [facility] [place] [address] 08/26/2023 8:15 AM EDT Imaging [facility] II 2nd Floor Cardiology, [place] [address] Gw, Excess Time Radiology [address] [place] [address] 08/29/2023 9:40 AM EDT Office Visit Podiatry [facility] [address] [place] [address] Melinda Stallworth, DPM [address] [facility] [place] [address] 02/13/2024 9:30 AM EDT Office Visit Family Medicine [address] [place] [phone] Sakshi Barros [address] [place] [address] 06/16/2024 10:20 AM EST Office Visit Dermatology [address] [place] [address] Charline Hurst PA-C [address] [place] [address] [place] [address] Pending Results Name Type Priority Associated Diagnoses Date /Time POTASSIUM Lab Routine HTN, goal below 140/90 Hypomagnesemia Hyperlipidemia with target LDL less than 70 Diabetic polyneuropathy associated with type 2 diabetes mellitus (HCC) AK (actinic keratosis) 07/09/2023 11:35 AM EDT VITAMIN B12 Lab Routine 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 07/09/2023 11:35 AM EDT MAGNESIUM Lab Routine [facility] current use of therapeutic drug 07/09/2023 11:35 AM EDT Scheduled Procedures Name Priority Associated Diagnoses Date/Ti me ESOPHAGOGASTRODUODENOSCOPY ( EGD), FLEXIBLE, TRANSORAL, DIAGNOSTIC Recall Alberto's esophagus with esophagitis COLONOSCOPY FLEXIBLE PROXIMAL DIAGNOSTIC Recall Screening for colon cancer Health Maintenance Due Date Last Done Comments Alpha-1 Antitrypsin 01/16/1963 Depression Screening 02/21/2022 02/21/2021 Albumin/Creatinine Ratio 06/12/2023 023, 03/06/2022, 12/04/2021, Additional history exists B-12 06/12/2023 06/12/2022, 1009/2020, 11/21/2020, Additional history exists Diabetic Eye Exam [...] this encounter Medical Devices Implanted Type Area Sausage Maker Device Identifier Shelf Expiration Date Model / Serial / Lot Mesh 3dmax 3.1x5.3in t Med - [id number] Implanted:Qty: 1 on 05/02/2023 by Jean Claude Givens MD at OR [facility] Right: Groin CR BARD : DAVOL 03/25/2027 [id number] / / [id number] documented as of this encounter Visit Diagnoses Diagnosis HTN, goal below 140/90 Unspecified essential hypertension Hypomagnesemia Disorders of magnesium metabolism Hyperlipidemia with target LDL less than 70 Other and unspecified hyperlipidemia Diabetic polyneuropathy associated with type 2 diabetes mellitus (HCC) AK (actinic keratosis) Actinic keratosis [facility] current use of therapeutic drug Type 2 diabetes mellitus with diabetic neuropathy, without long-term current use of insulin (HCC) documented in this encounter Advance Directives [...] Discussed due to patient's condition Care Teams Branch Operations Specialist Relationship Specialty Start Date End Date Sakshi Barros DO [address] [place] [address] [place] [address] PCP - General Internal Medicine 02/05/16 documented as of this encounter
--- OUTSIDE RECORDS SUMMARY | 2023-10-04 23:12 | External Medical Summary | Summary of Care ---
Author Name Unknown Organization [facility] Address [address] [facility] [place] [address] Phone [phone] Care Team Providers Care Wheelman Name Role Phone Sakshi Barros DO Primary Care Provider + [phone] Reason for Visit * Reason Comments Re-Check Pt c/o numbness in f ingers on left hand, whole hand is numb at times; back pain; no stamina/wears out easily, feels like chest gets sore and feels hot after he sits down, saw [facility] for this and is scheduled for a stress test. medication change Copied from [facility] note: I received the results of your recent labs.Potassium level has returned to normal. Continue the reduced dose of potassium chloride, 20 mEq ONCE a day. Recheck a potassium level when in to see PCP in June. Encounter Details Date Type Department Care Team (Late st Contact Info) Description 07/09/2023 10:30 AM EDT Office Visit Family Medicine [address] [place] [phone] Sakshi Barros DO [address] [place] [address] [place] [address] Type 2 diabetes mellitus with diabetic neuropathy, without long-term current use of insulin ([facility])*; Asthma-COPD overlap syndrome; Primary open-angle glaucoma, left eye, mild stage; Recurrent major depressive disorder, in remission ([facility]); Occupational exposure to other air contaminants; [facility] current use of therapeutic drug; Spinal stenosis of lumbar region with neurogenic claudication Allergies No known active allergiesdocumented as of [...] TO APPOINTMENT 4 Capsule 1 2 Active metFORMIN HCl 1000 MG Oral Tablet [...] MMIndications:DM type 2, goal HbA1c < 8% ([facility]) USE ONCE DAILY 100 Each 3 3 08/21/19 24 Active Lantus SoloStar 100 UNIT/ML Subcutaneous Solution Pen-injectorIndicati ons:DM type 2, goal HbA1c < 8% ([facility]) INJECT 15 UNITS UNDER THE SKIN DAILY 15 mL 3 3 07/25/19 24 Active Additional Information Patient taking differently: 15 Units Subcutaneous ONCE, Reported on 04/29/2023 Sertraline HCl 50 MG Oral Tablet (Zoloft)Indications: Anxiety TAKE 1 TABLET BY MOUTH EVERYDAY AT BEDTIME 90 Tablet 2 3 Active OneTouch Delica Plus [id number] :Type 2 diabetes mellitus with diabetic neuropathy, without long-term current use of insulin ([facility]) Test up to four times [...] 100 Tablet 3 4 06/19/19 25 Active traMADol HCl 50 MG Oral Tablet (Ultram)Indications: Spinal stenosis of lumbar region with neurogenic claudication Take 1 Tablet by mouth every 6 hours as needed for Pain, Severe. 60 Tablet 0 4 Active Potassium Chloride Angélica ER 20 MEQ Oral Tablet Extended Release Take 1 Tablet by mouth in the morning. 90 Tablet 1 4 Active traMADol HCl 50 MG Oral Tablet (Ultram) Take 1 Tablet by mouth every 6 hours as needed for severe pain. 60 Tablet 0 3 07/09/19 24 Discontinu ed(Refill) Potassium Chloride Angélica ER 20 MEQ Oral [...] surgeon, next week -continue ice Diabetic polyneuropathy assserafin whyte with type 2 diabetes mellitus 03/06/2022 [...] Statin History of cholecystectomy 10/15/2021 Atherosclerosis of [place] co ronary artery without angina pectoris 05/29/2021 Last Assessment & Plan: Continue statin, metoprolol, lisinopril Not on aspirin due to GI bleeding Occupational exposure to other air contaminants 11/21/2020 Hypomagnesemia 11/10/2020 Recurrent major depressive disorder, in [facility] n 05/22/2020 History of SC (myocardial infarction) 05/22/2020 Primary open-angle glaucoma, left [...] Overview: From Dr. Nuñez. Will recheck through [employer] next time he is seen. Major depressive [...] range 120 to 150. Last hemoglobin A1c 7.79043 continue metformin, Lantus Rectal bleeding 02/05/2016 01/10/2017 Overview: Had EGD/colonoscopy Acute blood loss anemia 02/05/201612/27 HTN, goal below 140/90 02/05/201601/10 Neuropathy 02/05/2016 01/10/2017 AK (actinic keratosis) 01/12/201401/10 Overview: Efudex (Cheli maria antoniaElizabethCiro)- 04/2014 documented as of this encounter (statuses [...] Sign Reading Time Taken Comments Blood Pressure 126/60 07/09/2023 10:36 AM EDT Pulse 94 07/09/2023 10:36 AM EDT Temperature 36.4 C (97.6 F) 07/09/2023 10:36 AM E DT Respiratory Rate - - Oxygen Saturation 91% 07/09/2023 10:36 AM EDT Inhaled Oxygen Concentration - - Weight 87.4 kg (192 lb 9.6 oz) 07/09/2023 10:36 AM EDT Height - - Body Mass Index 24.72 05/02/2023 6:48 AM EST documented in this encounter Progress Notes * Sakshi Barros, DO - 07/09/2023 10:37 AM EDT Subjective: Vahe Resendez is a 78 year old male. Chief Complaint Patient presents with Re-Check Pt c/o numbness in fingers on left hand, whole hand is numb at times; back pain; no stamina/wears out easily, feels like chest gets sore and feels hot after he sits down, saw [facility] for this and is scheduled for a stress test. medication change Copied from [facility] note: I received the results of your recent labs. Potassium level has returned to normal. Continue the reduced dose of potassium chloride, 20 mEq ONCE a day. Recheck a potassium level when in to see PCP in June. HPI: Vahe Resendez presents today for routine follow up. He saw cardiology last month with complaints of fatigue/ESPINOSA. Workup underway. Will have a stress test at the end of July. He gets numbness in his right leg if he is standing for too long. He will have to sit down. He doeshave chronic low back problems. He is following with our pain management group - switching providers [facility]. I offered him a rollator walker so that he would also have a seat to sit on when needed, but he declines this. He does always use a shopping cart when in stores and also has chairs in various locations at home to accommodate his needs. Last A1c was 7.7. He knows this is too high. Was previously jardiance but cost was an issue. He knows he eats too many sweets. Willing to work on his diet before we add other medications. He has a bad tooth and was given penicillin by his dentist. He is currently taking this. The tooth will eventually be pulled. He had a right inguinal hernia repair earlier this year. He feels he is doing okay. He would like a refill of his tramadol that he uses as needed for his back pain. He has a TENS unit but the battery has . Wondering if he can continue to use this; if it might help. Mood is okay on medicine. He is no longer following with the [facility]. 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 He recently saw the eye doctor and was told that everything was good. He believes he saw Dr. Meadows but he is unable to tell me what happened about his kidney stone or PSA. Will try to get records. PMH: Patient Active Problem List Diagnosis Code Restless legs syndrome G25.81 BPH without obstruction/lower urinary tract symptoms N40.0 Hyperlipidemia with target LDL less than 70 E78.5 Anxiety F41.9 Alberto's esophagus without dysplasia K22.70 Status post total left knee replacement Z96.652 History of esophageal cancer Z85.01 Hx of nonmelanoma skin cancer Z85.828 AK (actinic keratosis) L57.0 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-sided sciatica M54.42, G89.29 No diabetic retinopathy in both eyes [id number] History of GI diverticular bleed Z87.19 Microalbuminuria R80.9 DM type 2, goal HbA1c < 8% ([facility]) 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 J44.89 Primary open-angle glaucoma, left eye, mild stage H40.1121 HTN, goal below 140/90 I10 Recurrent major depressive disorder, in remission ([facility]) F33.40 History of SC (myocardial infarction) I25.2 Hypomagnesemia E83.42 Occupational exposure to other air contaminants Z57.39 Atherosclerosis of [place] coronary artery without angina pectoris I25.10 History of cholecystectomy Z90.49 Diabetic polyneuropathy associated with type 2 diabetes mellitus (HCC) E11.42 Chronic right shoulder pain M25.511, G89.29 Type 2 diabetes mellitus with diabetic neuropathy, without long-term current use of insulin ([facility]) E11.40 Current Outpatient Medications Medication Sig Dispense Refill [...] mouth in the morning.) 90 Tablet 3 Fluticasone-Salmeterol 250-50 MCG/ACT Inhalation Aerosol [...] BEDTIME 90 Tablet 2 OneTouch Delica Plus [id number] Test up to four times daily 400 [...] BY MOUTH AT BEDTIME 100 Tablet 3 traMADol HCl 50 MG Oral Tablet (Ultram) Take 1 Tablet by mouth every 6 hours as needed for Pain, Severe. 60 Tablet 0 Potassium Chloride Angélica ER 20 MEQ Oral Tablet Extended Release Take 1 Tablet by mouth in the morning. 90 Tablet 1 Pantoprazole Sodium 40 MG Oral Tablet Delayed Release (Protonix) TAKE ONE TABLET BY MOUTH EVERY MORNING AND TAKE ONE TABLET BY MOUTH AT BEDTIME (Patient taking differently: Take 1 Tablet by mouth in the morning and 1 Tablet before bedtime.) 200 Tablet 3 No current facility-administered medications for this visit. Review of patient's allergies indicates: No Known Allergies Objective: BP 126/60 | Pulse 94 | Temp 36.4 C (97.6 F) | Wt 87.4 kg (192 lb 9.6 oz) | SpO2 91% | BMI 24.72kg/m | BSA 2.14 m General: alert, healthy, no distress, well nourished, and well developed Neck: supple, no adenopathy, thyroid normal size, non-tender, without nodularity Heart: regular rate & rhythm and no murmur Lungs: chest symmetric with normal AP diameter, no chest deformities noted, normal respiratory rateand rhythm, lungs clear to auscultation Abdomen: abdomen soft and non-tender Extremities: no joint deformities, effusion, or inflammation, no edema Neuro Exam: alert & oriented x 3 with fluent speech, no focal motor/sensory deficits, gait is antalgic Skin: skin color, texture, turgor are normal, no rashes or significant lesions ASSESSMENT/PLAN: Type 2 diabetes mellitus with diabetic neuropathy, without long-term current use of insulin (HCC) (Primary) - A1c was 7.7. He will work on his diet. If A1c does not improve, will need to add additional medication. - ALBUMIN / CREATININE RATIO, URINE; Future; Expected date: 07/09/2023 Asthma-COPD overlap syndrome = stable. Primary open-angle glaucoma, left eye, mild stage = stable, follows with the eye doctors Recurrent major depressive disorder, in remission (HCC) - stable on sertraline, continue. Occupational exposure to other air contaminants - [facility]. Consider referral to pulmonology in the future. [facility] current use of therapeutic drug - VITAMIN B12; Future; Expected date: 07/09/2023 - MAGNESIUM; Future; Expected date: 07/09/2023 Spinal stenosis of lumbar region with neurogenic claudication - traMADol HCl 50 MG Oral Tablet (Ultram); Take 1 Tablet by mouth every 6 hours as needed for Pain,Severe. Other orders - chart updated to reflect his current use of potassium. - Potassium Chloride Angélica ER 20 MEQ Oral Tablet Extended Release; Take 1 Tablet by mouth in the morning. Follow-up: Return in about 6 months (around 01/09/2024). | Check-out note: Please get records from last year from Dr. Meadows. Labs today. Sakshi Barros DO I spent a total of 40-54 minutes (exact time 51 mins) on the date of service in preparation, delivery, and documentation of the care provided to Vahe Resendez excluding any time spent in the performance of separately billed services. documented in this encounter Plan of Treatment Upcoming Encounters Date Type Department Care Team (Late st Contact Info) Description 07/21/2023 11:00 AM EDT Office Visit Interventional Pain Center, [facility] [address] [address] Saige Preston PA-C [address] [place] [address] 08/26/2023 7:15 AM EDT Cardiac Studies Cardiac Studies, [facility] [address] [place] [address] 08/26/2023 8:15 AM EDT Imaging [facility] 2nd Floor Cardiology, [place] [address] [place] [address] , Excess Time Radiology [address] [place] [address] 08/29/2023 9:40 AM EDT Office Visit Podiatry [facility] [address] [place] [address] Melinda Stallworth, DPM [address] [facility] [place] [address] 02/13/2024 9:30 AM EDT Office Visit Family Medicine [address] [place] [phone] Sakshi Barros[address] [place] [address] 06/16/2024 10:20 AM EST Office Visit Dermatology [address] [place] [address] Charline Hurst PA-C [address] [place] [address] [place] [address] Pending Results Name Type Priority Associated Diagnoses Date /Time VITAMIN B12 Lab Routine [facility] current use of therapeutic drug 07/09/2023 11:35 AM EDT MAGNESIUM Lab Routine [facility] current use of therapeutic drug 07/09/2023 11:35 AM EDT Scheduled Orders Name Type Priority Associated Diagnoses Orde r Schedule VITAMIN B12 Lab Routine [facility] current use of therapeutic drug Expected: 07/09/2023 (Approximate), Expires: 07/08/2024 ALBUMIN / CREATININE RATIO, URINE Lab Routine Type 2 diabetes mellitus with diabetic neuropathy, without long-term current use of insulin (HCC) Expected: 07/09/2023 (Approximate), Expires: 07/08/2024 MAGNESIUM Lab Routine [facility] current use of therapeutic drug Expected: 07/09/2023 (Approximate), Expires: 07/08/2024 Scheduled Procedures Name Priority Associated Diagnoses Date/Ti de ESOPHAGOGASTRODUODENOSCOPY ( EGD), FLEXIBLE, TRANSORAL, DIAGNOSTIC Recall [...] FOR COPD 05/02/2024 05/02/2023 GFR 06/17/2024 06/17/2023, 0811/2022, 01/11/2022, Additional history exists Alberto's Esophagus Surveilance [...] this encounter Medical Devices Implanted Type Area Programming Intern Device Identifier Shelf Expiration Date Model / Serial / Lot Mesh 3dmax 3.1x5.3in [facility] Med - [id number] Implanted:Qty: 1 on 05/02/2023 by Jean Claude Givens MD at OR [facility] Right: Groin CR BARD : DAVOL 03/25/2027 [id number] / / [id number] documented as of this encounter Visit Diagnoses Diagnosis Type 2 diabetes mellitus with diabetic neuropathy, without long-term current use of insulin (HCC)- Primary Asthma-COPD overlap syndrome Primary open-angle glaucoma, left eye, mild stage Recurrent major depressive disorder, in remission ([facility]) Occupational exposure to other air contaminants [facility] current use of therapeutic drug Spinal stenosis of lumbar region with neurogenic [...] Discussed due to patient's condition Care Teams Wheelman Relationship Specialty Start Date End Date Sakshi Barros DO [address] [place] [address] [place] [address] PCP - General Internal Medicine 02/05/16 documented as of this encounter
--- OUTSIDE RECORDS SUMMARY | 2023-10-04 23:12 | External Medical Summary | Summary of Care ---
Author Name Unknown Organization [facility] Address [address] [facility] [place] [address] Phone [phone] Care Team Providers Care Side Splitter Name Role Phone BarrosSakshi austin Primary Care Provider + [phone] Reason for Visit * Reason Comments Outpatient Testing Encounter Details Date Type Department Care Team (Late st Contact Info) Description 06/23/2023 1:50 PM EST Laboratory Laboratory [address] [place] [phone] [place] [address] HTN, goal below 140/90; Hypomagnesemia; Hyperlipidemia with target LDL less than 70; Diabetic polyneuropathy associated with type 2 diabetes mellitus (HCC); Microalbuminuria; AK (actinic keratosis) Allergies No known active allergiesdocumented as of this encounter (statuses as of 06/23/2023) Medications Medication Sig Dispensed Refills Start Date [...] TO APPOINTMENT 4 Capsule 1 05/29/2021 Active Additional Information Patient not taking.Reported on 05/02/2023 metFORMIN HCl 1000 MG Oral Tablet (Glucophage)Indicati ons:Type 2 diabetes mellitus with diabetic neuropathy, unspecified ([facility]) TAKE 1 TABLET BY MOUTH TWICE [...] 2, goal HbA1c < 8% ([facility]) USE ONCE DAILY 100 Each 3 08/21/2022 4 Active Lantus SoloStar 100 UNIT/ML Subcutaneous Solution Pen-injectorIndicati ons:DM type 2, goal HbA1c < 8% ([facility]) INJECT 15 UNITS UNDER THE SKIN DAILY 15 mL 3 06/07/2022 4 Active Additional Information Patient taking differently: 15 Units Subcutaneous ONCE, Reported on 04/29/2023 Sertraline HCl 50 MG Oral Tablet (Zoloft)Indications: Anxiety TAKE 1 TABLET BY MOUTH EVERYDAY AT BEDTIME 90 Tablet 2 11/16/2022 Active OneTouch Delica Plus [id number] :Type 2 diabetes mellitus with diabetic neuropathy, without long-term current use of insulin ([facility]) Test up to four times daily [...] needed for severe pain. 60 Tablet 0 02/24/2023 Active Latanoprost 0.005 % Ophthalmic Solution (Xalatan) [...] MORNING 45 Tablet 3 05/29/2023 5 Active Fluorouracil 5 % External Cream (Efudex) Apply thin layer to top of scalp and entire face (except for chin) 2x daily for 3 weeks and then send photos through [facility]/My Chart at end of treatment. 40 g 1 06/04/2023 Active Potassium Chloride Angélica ER 20 MEQ Oral Tablet Extended Release TAKE ONE TABLET BY MOUTH TWICE A DAY WITH MORNING AND EVENING MEALS 200 Tablet 1 06/11/2023 5 Active Pramipexole Dihydrochloride 0.25 MG Oral Tablet (Mirapex)Indications :Restless legs syndrome TAKE ONE TABLET BY MOUTH AT BEDTIME 100 Tablet 3 06/20/2023 5 Active documented as of this encounter (statuses as of 06/23/2023) Active Problems Problem Noted Date Diagnosed Date [...] Statin History of cholecystectomy 10/15/2021 Atherosclerosis of [place] co ronary artery without angina pectoris 05/29/2021 Last Assessment & Plan: Continue statin, metoprolol, lisinopril Not on aspirin due to GI bleeding Occupational exposure to other air contaminants 11/21/2020 Hypomagnesemia 11/10/2020 Recurrent major depressive disorder, in [facility] n 05/22/2020 History of [place] (myocardial infarction) 05/22/2020 Primary open-angle glaucoma, left [...] lateral cheek 06/20) AK (actinic keratosis) 08/06/2017 History of esophageal cancer 05/22/2017 Overview: In [...] as of this encounter (statuses as of 06/23/2023) Resolved Problems Problem Noted Date Diagnosed Date Resolved Date Absolute anemia 02/21/2021 06/12/2022 Abnormal thyroid blood test 03/30/2020 11/21/2020 Overview: From Dr. Nuñez. Will recheck through [employer] next time he is seen. Major depressive [...] range 120 to 150. Last hemoglobin A1c 7.44338 continue metformin, Lantus Rectal bleeding 02/05/2016 01/10/2017 Overview: Had EGD/colonoscopy Acute blood loss anemia 02/05/201612/27 HTN, goal below 140/90 02/05/201601/10 Neuropathy 02/05/2016 01/10/2017 AK (actinic keratosis) 01/12/201401/10 Overview: Efudex (Salina Vazquez)- 04/2014 documented as of this encounter (statuses as of 06/23/2023) Immunizations Name Administration Dates Next Due COVID-19 [...] 10:30 AM EDT Office Visit Family Medicine [address] [place] [phone] [address] [place] [address] 07/21/2023 11:00 AM EDT Office Visit [facility], [facility] [place] [address] Saige Preston PA-C [address] [place] [address] 08/26/2023 7:15 AM EDT Cardiac Studies Cardiac Studies, [facility] [address] [facility] [place] [address] 08/26/2023 8:15 AM EDT Imaging [facility] 2nd Floor Cardiology, [address] [place] [address] Gw, Excess Time Radiology [address] [facility] [place] [address] 08/29/2023 9:40 AM EDT Office Visit Podiatry [address] [place] [address] Melinda Stallworth, MABEL [address] [place] [address] [place] [address] 06/16/2024 10:20 AM EST Office Visit Dermatology [address] [place] [address] Charline Hurst PA-C [address] [place] [address] [place] [address] Pending Results Name Type Priority Associated Diagnoses Date /Time POTASSIUM Lab Routine HTN, goal below 140/90 Hypomagnesemia Hyperlipidemia with target LDL less than 70 Diabetic polyneuropathy associated with type 2 diabetes mellitus (HCC) Microalbuminuria AK (actinic keratosis) 06/23/2023 1:59 PM EST Scheduled Procedures Name Priority Associated Diagnoses Date/Ti mo ESOPHAGOGASTRODUODENOSCOPY ( EGD), FLEXIBLE, TRANSORAL, DIAGNOSTIC Recall Alberto's esophagus with esophagitis COLONOSCOPY FLEXIBLE PROXIMAL DIAGNOSTIC Recall Screening for colon cancer Health Maintenance Due Date Last Done Comments Alpha-1 Antitrypsin 01[birth year]16/1963 Depression Screening 02/21/2022 02/21/2021 Albumin/Creatinine Ratio 06/12/2023 023, 03/06/2022, 12/04/2021, Additional history exists B-12 06/12/2023 06/12/2022, 10/0 09/2020, 11/21/2020, Additional history exists Diabetic Eye [...] this encounter Medical Devices Implanted Type Area Bottle House Quality Control Technician Device Identifier Shelf Expiration Date Model / Serial / Lot Mesh 3dmax 3.1x5.3in t Med - [id number] Implanted:Qty: 1 on 05/02/2023 by Jean Claude Givens MD at OR [facility] Right: Groin CR BARD : DAVOL 03/25/2027 [id number] / / [id number] documented as of this encounter Visit Diagnoses Diagnosis HTN, goal below 140/90 Unspecified essential hypertension Hypomagnesemia Disorders of magnesium metabolism Hyperlipidemia with target LDL less than 70 Other and unspecified hyperlipidemia Diabetic polyneuropathy associated with type 2 diabetes mellitus (HCC) Microalbuminuria Proteinuria AK (actinic keratosis) Actinic keratosis documented in this encounter Advance Directives Latest [...] Discussed due to patient's condition Care Teams Side Splitter Relationship Specialty Start Date End Date Sakshi Barros DO [address] [place] [address] [place] [address] PCP - General Internal Medicine 02/05/16 documented as of this encounter
--- OUTSIDE RECORDS SUMMARY | 2023-10-04 23:12 | External Medical Summary | Summary of Care ---
Author Name Unknown Organization [facility] Address [address] [facility] [place] [address] Phone [phone] Care Team Providers [employer] Registrar Name Role Phone Sakshi Barros DO Primary Care Provider [phone] Reason for Visit * Reason Onset Date Comments Test Results 06/18/2023 Encounter Details Date Type Department Care Team (Late st Contact Info) Description 06/18/2023 Telephone Cardiology, [facility] [address] [place] [address] Tito House PA-C [address] [facility] [place] [address] Test Results Allergies No known active allergiesdocumented as of this encounter (statuses as of 06/18/2023) Medications Medication Sig Dispensed Refills Start Date [...] 15 Units Subcutaneous ONCE, Reported on 04/29/2023 Pramipexole Dihydrochloride 0.25 MG Oral Tablet (Mirapex)Indications :Restless legs syndrome TAKE ONE TABLET BY MOUTH AT BEDTIME 100 Tablet 3 04/15/2022 4 Active Sertraline HCl 50 MG Oral Tablet (Zoloft)Indications: Anxiety TAKE 1 TABLET BY MOUTH EVERYDAY AT BEDTIME 90 Tablet 2 11/16/2022 Active OneTouch Delica Plus [id number] :Type 2 diabetes mellitus with diabetic neuropathy, [...] weeks and then send photos through [employer] [facility]/My Chart at end of treatment. 40 g 1 06/04/2023 Active Potassium Chloride Angélica ER 20 MEQ Oral Tablet Extended Release TAKE ONE TABLET BY MOUTH TWICE A DAY WITH MORNING AND EVENING MEALS 200 Tablet 1 06/11/2023 5 Active documented as of this encounter (statuses as of 06/18/2023) Active Problems Problem Noted Date Diagnosed Date [...] Statin History of cholecystectomy 10/15/2021 Atherosclerosis of [place] co ronary artery without angina pectoris 05/29/2021 Last Assessment & Plan: Continue statin, metoprolol, lisinopril Not on aspirin due to GI bleeding Occupational exposure to other air contaminants 11/21/2020 Hypomagnesemia 11/10/2020 [facility] History of [place] (myocardial infarction) 05/22/2020 Primary open-angle glaucoma, left [...] as of this encounter (statuses as of 06/18/2023) Resolved Problems Problem Noted Date Diagnosed Date Resolved Date Absolute anemia 02/21/2021 06/12/2022 Abnormal thyroid blood test 03/30/2020 11/21/2020 Overview: From Dr. Nuñez. Will recheck through [employer] next time he is seen. Major depressive [...] range 120 to 150. Last hemoglobin A1c 7.84448 continue metformin, Lantus Rectal bleeding 02/05/2016 01/10/2017 Overview: Had EGD/colonoscopy Acute blood loss anemia 02/05/201612/27 HTN, goal below 140/90 02/05/201601/10 Neuropathy 02/05/2016 01/10/2017 AK (actinic keratosis) 01/12/201401/10 Overview: Efudex (Salina Vazquez)- 04/2014 documented as of this encounter (statuses as of 06/18/2023) Immunizations Name Administration Dates Next Due COVID-19 mRNA, LNP-s, No Pre serve, 2-Dose Series ([employer]) 04/05/2021,07/04/2020,06/13/2020 COVID-19, MRNA-LNP, 23-24, P F, 30 MCG/0.3 mL, 12 YRS AND ABOVE, IM ([employer]-Comirnaty) 02/24/2023 Pneumococcal Conjugate Vacc, 13 Valent (Prevnar) [...] encounter Miscellaneous Notes * Telephone Encounter - Dwight Sol LPN - 06/18/2023 4:15 PM EST Sent patient a Ideal Implant message to make aware. ----- Message from Tito House PA-C sent at 06/18/2023 1:12 PM EST ----- CXR OK documented in this encounter Plan of Treatment Upcoming Encounters Date Type Department Care Team (Late st Contact Info) Description 06/23/2023 2:00 PM EST Office Visit Dermatology [address] [place] [address] Charline Hurst PA-C [address] [place] [address] [place] [address] 07/09/2023 10:30 AM EDT Office Visit Family Medicine [address] [place] [phone] [place] [address] 07/21/2023 11:00 AM EDT Office Visit Interventional Pain Center, [facility] [address] [facility] [place] [address] Saige Preston PA-C [address] [facility] [place] [address] 08/26/2023 7:15 AM EDT Cardiac Studies Cardiac Studies, [facility] [address] [facility] [place] [address] 08/26/2023 8:15 AM EDT Imaging [facility] 2nd Floor Cardiology, [address] [place] [address] Gw, Excess Time Radiology [address] [place] [address] [place] [address] 08/29/2023 9:40 AM EDT Office Visit Podiatry [address] [place] [address] Melinda Stallworth, [address] [address] 06/16/2024 10:20 AM EST Office Visit Dermatology [address] [place] [address] Charline Hurst PA-C [address] [place] [address] [place] [address] Scheduled Procedures Name Priority Associated Diagnoses Date/Ti me ESOPHAGOGASTRODUODENOSCOPY ( EGD), FLEXIBLE, TRANSORAL, DIAGNOSTIC Recall Alberto's esophagus with esophagitis COLONOSCOPY FLEXIBLE PROXIMAL DIAGNOSTIC Recall Screening for colon cancer Health Maintenance Due Date Last Done Comments Alpha-1 Antitrypsin 01/16/1963 Depression Screening 02/21/2022 02/21/2021 Albumin/Creatinine Ratio 06/12/2023 023, 03/06/2022, 12/04/2021, Additional history exists B-12 06/12/2023 06/12/2022, 100 09/2020, 11/21/2020, Additional history exists Diabetic Eye Exam 09/25/2023 09/24/2022, , 09/24/2022, Additional history exists HbA1c 12/16/2023 06/17/2023, 083 , 06/12/2022, Additional history exists Diabetic Foot [...] this encounter Medical Devices Implanted Type Area Tucking Machine Operator Device Identifier Shelf Expiration Date Model / Serial / Lot Mesh 3dmax 3.1x5.3in t Med - [id number] Implanted:Qty: 1 on 05/02/2023 by Jean Claude Givens MD at OR [facility] Right: Brittani JAMES BARD : DAVOL 03/25/2027 [id number] / / [id number] documented as of this encounter Advance Directives [...] Discussed due to patient's condition Care Teams [employer] Registrar Relationship Specialty Start Date End Date Sakshi Barros DO [address] [place] [address] [place] [phone] PCP - General Internal Medicine 02/05/16 documented as of this encounter
--- OUTSIDE RECORDS SUMMARY | 2023-10-04 23:12 | External Medical Summary ---
Author Name Unknown Address Unknown Organization K01:LABORATORY [facility] - [address] [place] [address] Laboratory Report Ordering Provider Test Date Status YAHIR WHITE 07/09/2023 11:35:51 Final Observation Date Value Abnormality Reference (Units ) Status Vitamin B12 07/09/2023 11:35:51 [phone] (pg/mL) Final Performing Location LABORATORY [facility] - [address] [place] [address]
--- OUTSIDE RECORDS SUMMARY | 2023-10-04 23:12 | External Medical Summary | Summary of Care ---
Author Name Unknown Organization [facility] Address [address] [facility] [place] [address] Phone [phone] Care Team Providers Care Optical Engineer Name Role Phone Cindy Sinclair DO Primary Care Provider [phone] Reason for Visit * Reason Comments Medication Refill Encounter Details Date Type Department Care Team (Late st Contact Info) Description 07/17/2023 Refill Family Medicine [address] [place] [address] Cindy Sinclair DO [address] [place] [address] [place] [address] DM type 2, goal HbA1c < 8% ([facility]); Spinal stenosis of lumbar region with neurogenic claudication Allergies No known active allergiesdocumented as of this encounter (statuses as of 07/18/2023) Medications Medication Sig Dispensed Refills Start Date [...] long-term current use of insulin ([facility]) USE UP TO 3 TIMES A [...] Tablet 2 3 Active OneTouch Delica Plus [id number] :Type 2 diabetes mellitus with diabetic neuropathy, [...] Severe pain. 60 Tablet 0 4 Active Lantus SoloStar 100 UNIT/ML Subcutaneous Solution Pen-injectorIndicati ons:DM type 2, goal HbA1c < 8% (HCC) INJECT 15 UNITS UNDER THE SKIN DAILY 15 mL 3 3 07/17/19 24 Discontinu ed(Refill) traMADol HCl 50 MG Oral Tablet (Ultram)Indications: Spinal stenosis of lumbar region with neurogenic claudication Take 1 Tablet by mouth every 6 hours as needed for Severe pain. 60 Tablet 0 4 07/17/19 24 Discontinu ed(Refill) documented as of this encounter (statuses as of 07/18/2023) Active Problems Problem Noted Date Diagnosed Date [...] Statin History of cholecystectomy 10/15/2021 Atherosclerosis of [place] co ronary artery without angina pectoris 05/29/2021 Last Assessment & Plan: Continue statin, metoprolol, lisinopril Not on aspirin due to GI bleeding Occupational exposure to other air contaminants 11/21/2020 Hypomagnesemia 11/10/2020 Recurrent major depressive disorder, in [facility] n 05/22/2020 History of [place] (myocardial infarction) 05/22/2020 Primary open-angle glaucoma, left [...] as of this encounter (statuses as of 07/18/2023) Resolved Problems Problem Noted Date Diagnosed Date Resolved Date Absolute anemia 02/21/2021 06/12/2022 Abnormal thyroid blood test 03/30/2020 11/21/2020 Overview: From Dr. Nuñez. Will recheck through [employer] next time he is seen. Major depressive [...] range 120 to 150. Last hemoglobin A1c 7.20563 continue metformin, Lantus Rectal bleeding 02/05/2016 01/10/2017 Overview: Had EGD/colonoscopy Acute blood loss anemia 02/05/201612/27 HTN, goal below 140/90 02/05/201601/10 Neuropathy 02/05/2016 01/10/2017 [place] (actinic keratosis) 01/12/201401/10 Overview: Efudex (Salina Vazquez)- 04/2014 documented as of this encounter (statuses as of 07/18/2023) Immunizations Name Administration Dates Next Due COVID-19 [...] encounter Miscellaneous Notes * Telephone Encounter - iCndy Sinclair DO - 07/18/2023 8:35 AM EDTSigned Prescriptions: Disp Refills Lantus SoloStar 100 UNIT/ML Subcutaneous S*15 mL 2 Sig: INJECT 15 UNITS UNDER THE SKIN DAILY Authorizing Provider: CINDY SINCLAIR Ordering User: SAMUEL TAPIA traMADol HCl 50 MG Oral Tablet (Ultram) 60 Tab*0 Sig: Take 1 Tablet by mouth every 6 hours as needed for Severe pain. Authorizing Provider: CINDY SINCLAIR - * Telephone Encounter - Claire Sandhu, [facility] - 07/17/2023 2:21 PM EDT Pending Prescriptions: Disp Refills traMADol HCl 50 MG Oral Tablet (Ultram) 60 Tab*0 Sig: Take 1 Tablet by mouth every 6 hours as needed for Severe pain. Signed Prescriptions: Disp Refills Lantus SoloStar 100 UNIT/ML Subcutaneous S*15 mL 2 Sig: INJECT 15 UNITS UNDER THE SKIN DAILY Authorizing Provider: CINDY SINCLAIR Ordering Use r: SAMUEL TAPIA * Telephone Encounter - Samuel Tapia [facility] - 07/17/2023 2:14 PM EDTPending Prescriptions: Disp Refills traMADol HCl 50 MG Oral Tablet (Ultram) 60 Tab*0 Sig: Take 1 Tablet by mouth every 6 hours as needed for Severe pain. Signed Prescriptions: Disp Refills Lantus SoloStar 100 UNIT/ML Subcutaneous S*15 mL 2 Sig: INJECT 15 UNITS UNDER THE SKIN DAILY Authorizing Provider: CINDY SINCLAIR Ordering Use r: SAMUEL TAPIA * Telephone Encounter - Sully Cummings [facility] - 07/17/2023 2:09 PM EDT Did you pend patient's preferred pharmacy and medication before forwarding?yes Pharmacy: [facility] Pending Prescriptions: Disp Refills Lantus SoloStar 100 UNIT/ML Subcutaneous *15 mL 3 Sig: INJECT 15 UNITS UNDER THE SKIN DAILY traMADol HCl 50 MG Oral Tablet (Ultram) 60 Tab*0 Sig: Take 1 Tablet by mouth every 6 hours as needed for Severe pain. Last Visit: 07/09/2023 (in office), Visit date not found (telemedicine) Next Visit: 02/13/2024 If no future appointments scheduled, and last appointment is greater than a year ago, please schedule patient for a follow-up appointment Last date the medication was ordered: 07/09/23 06/07/22 Is this request for a controlled substance?Yes, What was the last refill date 07/09/23 w/ quantity 60 and dosage q6prn and Urine Drug Screen Not completed Urine Drug Screen:No results found for this [...] AM HGBA1C 7.7 (H) 08/11/2018 12:02 PM * Telephone Encounter - Samuel Tapia RPh - 07/17/2023 2:09 PM EDT I have reviewed the patients controlled substance dispensing history in the Prescription Drug Monitoring Program in compliance with the [facility] regulations before prescribing a controlled substance. PDMP checked on 07/17/2023. Pending Prescriptions: Disp Refills Lantus SoloStar 100 UNIT/ML Subcutaneous *15 mL 3 Sig: INJECT 15 UNITS UNDER THE SKIN DAILY traMADol HCl 50 MG Oral Tablet (Ultram) 60 Tab*0 Sig: Take 1 Tablet by mouth every 6 hours as needed for Severe pain. Last Visit: 07/09/2023 (in office), Visit date not found (telemedicine) Next Visit: 02/13/2024 Date medication was last filled: 07/10/23 Date medication is due for refill: 07/24/23 Pharmacy: [facility] Is this request for a controlled substance? Yes and Urine Drug Screen Not completed Toxicology results: No results found for this or any previous visit. Please approve if appropriate. Thanks, Samuel Tapia, PharmD Clinical Pharmacist [facility] ([facility]) [phone] 07/17/2023, 2:09 PM * Telephone Encounter - 07/17/2023 12:10 AM EDTPending Prescriptions: Disp Refills Lantus SoloStar 100 UNIT/ML Subcutaneous S*15 mL 3 Sig: INJECT 15 UNITS UNDER THE SKIN DAILY traMADol HCl 50 MG Oral Tablet (Ultram) 60 Tab*0 Sig: Take 1 Tablet bymouth every 6 hours as needed for Severe pain. documented in this encounter Plan of Treatment Upcoming Encounters Date Type Department Care Team (Late st Contact Info) Description 07/21/2023 11:00 AM EDT Office Visit Interventional Pain Center, [facility] [address] [place] [address] Saige Preston PA-C [address] [place] [address] 08/26/2023 7:15 AM EDT Cardiac Studies Card[facility] Studies, [facility] [place] [address] 08/26/2023 9:15 AM EDT Imaging [facility] 2nd Floor Cardiology, [place] [address] [address] [place] [address] Gw, Excess Time Radiology [facility] [place] [address] 08/29/2023 9:40 AM EDT Office Visit Podiatry [facility] [address] [facility] [place] [address] Melinda Stallworth, DPM [facility] [place] [address] 02/13/2024 9:30 AM EDT Office Visit Family Medicine [address] [place] [phone] Cindy Sinclair DO [address] [place] [address] [place] [address] 06/16/2024 10:20 AM EST Office Visit Dermatology [address] [place] [address] Charline Hurst PA-C [address] [place] [address] [place] [address] Scheduled Procedures Name Priority Associated Diagnoses Date/Ti [...] this encounter Medical Devices Implanted Type Area Tarring Machine Operator Device Identifier Shelf Expiration Date Model / Serial / Lot Mesh 3dmax 3.1x5.3in t Med - [id number] Implanted:Qty: 1 on 05/02/2023 by Jean Claude Givens MD at OR [facility] Right: Groin CR BARD : DAVOL 03/25/2027 [id number] / / [id number] documented as of this encounter Visit Diagnoses Diagnosis DM type 2, goal HbA1c < 8% ([facility]) Spinal stenosis of lumbar region with neurogenic claudication Spinal stenosis, lumbar region, with neurogenic claudication documented in this encounter Advance Directives Latest Code Status on File Code Status Date Activated Date Inactivated Comments Full Code 05/02/2023 7:51 AM 05/02/2023 2:28 PM This or shlel reflects the patients wishes and were consensually [...] Discussed due to patient's condition Care Teams Optical Engineer Relationship Specialty Start Date End Date Cindy Sinclair DO [address] [place] [address] [place] [address] PCP - General Internal Medicine 02/05/16 documented as of this encounter
--- OUTSIDE RECORDS SUMMARY | 2023-10-04 23:12 | External Medical Summary | Summary of Care ---
Author Name Unknown Organization [facility] Address [address] [facility] [place] [address] Phone [phone] Care Team Providers Care Improvement Specialist Name Role Phone Sakshi Barros DO Primary Care Provider [phone] Reason for Visit * Reason Onset Date Comments Test Results 06/24/2023 Encounter Details Date Type Department Care Team (Late st Contact Info) Description 06/24/2023 Telephone Cardiology, [facility] [address] [place] [address] Tito House PA-C [address] [place] [address] Test Results Allergies No known active allergiesdocumented [...] MMIndications:DM type 2, goal HbA1c < 8% ([facility]) USE ONCE DAILY 100 Each 3 08/21/2022 4 Active Lantus SoloStar 100 UNIT/ML Subcutaneous Solution Pen-injectorIndicati ons:DM type 2, goal HbA1c < 8% ([facility]) INJECT 15 UNITS UNDER THE SKIN DAILY 15 mL 3 06/07/2022 4 Active Additional Information Patient taking differently: 15 Units Subcutaneous ONCE, Reported on 04/29/2023 Sertraline HCl 50 MG Oral Tablet (Zoloft)Indications: Anxiety TAKE 1 TABLET BY MOUTH EVERYDAY AT BEDTIME 90 Tablet 2 11/16/2022 Active OneTouch Delica Plus [id number] :Type 2 diabetes mellitus with diabetic neuropathy, [...] MORNING 45 Tablet 3 05/29/2023 5 Active Potassium Chloride Angélica ER 20 MEQ [...] Statin History of cholecystectomy 10/15/2021 Atherosclerosis of [place] co ronary artery without angina pectoris 05/29/2021 [...] Overview: From Dr. Nuñez. Will recheck through [employer] next time he is seen. Major depressive [...] range 120 to 150. Last hemoglobin A1c 7.98416 continue metformin, Lantus Rectal bleeding 02/05/2016 01/10/2017 Overview: Had EGD/colonoscopy Acute blood loss anemia 02/05/201612/27 HTN, goal below 140/90 02/05/201601/10 Neuropathy 02/05/2016 01/10/2017 [place] (actinic keratosis) 01/12/201401/10 Overview: Efudex (Salina Vazquez)- 04/2014 documented as of this encounter (statuses as of 06/24/2023) Immunizations Name Administration Dates Next Due COVID-19 mRNA, LNP-s, No Pre serve, 2-Dose Series ([employer]) 04/05/2021,07/04/2020,06/13/2020 COVID-19, MRNA-LNP, 23-24, P F, 30 [...] encounter Miscellaneous Notes * Telephone Encounter - Ynes Astorga CMA - 06/24/2023 3:46 PM EST My g sent * Telephone Encounter - Ynes Astorga CMA - 06/24/2023 3:44 PM EST ----- Message from Tito House PA-C sent at 06/24/2023 7:54 AM EST ----- Potassium level has returned to normal. Continue the reduced dose of potassium chloride, 20 mEq ONCE a day. Recheck a potassium level when in to see PCP in June. documented in this encounter Plan of Treatment Upcoming Encounters Date Type Department Care Team (Late st Contact Info) Description 07/09/2023 10:30 AM EDT Office Visit Family [address] [phone] [address] [place] [address] 07/21/2023 11:00 AM EDT Office Visit Interventional Pain Center, [facility] [address] [facility] [place] [address] Saige Preston PA-C 132 [facility] [place] [address] 08/26/2023 7:15 AM EDT Cardiac Studies Cardiac Studies, [facility] [address] [facility] [place] [address] 08/26/2023 8:15 AM EDT Imaging [facility] 2nd Floor Cardiology, [address] [place] [address] Gw, Excess Time Radiology [address] [facility] [place] [address] 08/29/2023 9:40 AM EDT Office Visit Podiatry [facility] [address] [facility] [place] [address] Melinda Stallworth, DPM [address] [place], [place] [address] [address] 06/16/2024 10:20 AM EST Office Visit Dermatology [address] [place] [address] Charline Hurst PA-C [address] [place] [address] [place] [address] Scheduled Orders Name Type Priority Associated Diagnoses Orde r Schedule POTASSIUM Lab Routine HTN, goal below 140/90 Hypomagnesemia Hyperlipidemia with target LDL less than 70 Diabetic polyneuropathy associated with type 2 diabetes mellitus (HCC) [place] (actinic keratosis) Expected: 06/24/2023, Expires: 06/24/2024 Scheduled Procedures Name Priority Associated Diagnoses Date/Ti [...] this encounter Medical Devices Implanted Type Area Specimen Preparation Assistant Device Identifier Shelf Expiration Date Model / Serial / Lot Mesh 3dmax 3.1x5.3in t Med - [id number] Implanted:Qty: 1 on 05/02/2023 by Jean Claude Givens MD at OR [facility] Right: Groin CR BARD : DAVOL 03/25/2027 [id number] / / [id number] documented as of this encounter Visit Diagnoses Diagnosis HTN, goal below 140/90- Primary Unspecified essential hypertension Hypomagnesemia Disorders of magnesium [...] Discussed due to patient's condition Care Teams Improvement Specialist Relationship Specialty Start Date End Date Sakshi Barros DO [address] [place] [address] [place] [address] PCP - General Internal Medicine 02/05/16 documented as of this encounter
--- OUTSIDE RECORDS SUMMARY | 2023-10-04 23:12 | External Medical Summary | Summary of Care ---
Author Name Unknown Organization [facility] Address [address] [facility] [place] [address] Phone [phone] Care Team Providers Care Distribution Warehouse Manager Name Role Phone Cindy Sinclair DO Primary Care Provider + [phone] Reason for Visit * Reason Comments Medication Refill Encounter Details Date Type Department Care Team (Late st Contact Info) Description 06/20/2023 Refill Family Medicine [address] [place] [address] Cindy Sinclair DO [address] [place] [address] [place] [address] Restless legs syndrome Allergies No known active allergiesdocumented as of this encounter (statuses as of 06/20/2023) Medications Medication Sig Dispensed Refills Start Date [...] TO APPOINTMENT 4 Capsule 1 2 Active Additional Information Patient not taking.Reported on [...] ons:DM type 2, goal HbA1c < 8% ([facility]) INJECT 15 UNITS UNDER THE SKIN DAILY 15 mL 3 3 07/25/19 24 Active Additional Information Patient taking differently: 15 Units Subcutaneous ONCE, Reported on 04/29/2023 Sertraline HCl 50 MG Oral Tablet (Zoloft)Indications: Anxiety TAKE 1 TABLET BY MOUTH EVERYDAY AT BEDTIME 90 Tablet 2 3 Active OneTouch Delica Plus [id number] :Type 2 diabetes mellitus with diabetic neuropathy, [...] 45 Tablet 3 4 05/28/19 25 Active Fluorouracil 5 % External Cream (Efudex) Apply thin layer to top of scalp and entire face (except for chin) 2x daily for 3 weeks and then send photos through My [facility]/My Chart at end of treatment. 40 g 1 4 Active Potassium Chloride Angélica ER 20 MEQ Oral Tablet Extended Release TAKE ONE TABLET BY MOUTH TWICE A DAY WITH MORNING AND EVENING MEALS 200 Tablet 1 4 06/10/19 25 Active Pramipexole Dihydrochloride 0.25 MG Oral Tablet (Mirapex)Indications :Restless legs syndrome TAKE ONE TABLET BY MOUTH AT BEDTIME 100 Tablet 3 4 06/19/19 25 Active Pramipexole Dihydrochloride 0.25 MG Oral Tablet (Mirapex)Indications :Restless legs syndrome TAKE ONE TABLET BY MOUTH AT BEDTIME 100 Tablet 3 2 06/20/19 24 Discontinu ed(Refill) documented as of this encounter (statuses as of 06/20/2023) Active Problems Problem Noted Date Diagnosed Date [...] Statin History of cholecystectomy 10/15/2021 Atherosclerosis of [place] co ronary artery without angina pectoris 05/29/2021 Last Assessment & Plan: Continue statin, metoprolol, lisinopril Not on aspirin due to GI bleeding Occupational exposure to other air contaminants 11/21/2020 Hypomagnesemia 11/10/2020 Recurrent major depressive disorder, in [facility] 05/22/2020 History of [place] (myocardial infarction) 05/22/2020 Primary open-angle glaucoma, left [...] as of this encounter (statuses as of 06/20/2023) Resolved Problems Problem Noted Date Diagnosed Date Resolved Date Absolute anemia 02/21/2021 06/12/2022 Abnormal thyroid blood test 03/30/2020 11/21/2020 Overview: From Dr. Nuñez. Will recheck through [employer] next time he is seen. Major depressive [...] range 120 to 150. Last hemoglobin A1c 7.21977 continue metformin, Lantus Rectal bleeding 02/05/2016 01/10/2017 Overview: Had EGD/colonoscopy Acute blood loss anemia 02/05/201612/27 HTN, goal below 140/90 02/05/201601/10 Neuropathy 02/05/2016 01/10/2017 AK (actinic keratosis) 01/12/201401/10 Overview: Efudex (Salina Vazquez)- 04/2014 documented as of this encounter (statuses as of 06/20/2023) Immunizations Name Administration Dates Next Due COVID-19 [...] Telephone Encounter - Cindy Sinclair DO - 06/20/2023 3:06 PM ESTSigned Prescriptions: Disp Refills Pramipexole Dihydrochloride 0.25 MG Oral T*100 Ta*3 Sig: TAKE ONE TABLET BY MOUTH AT BEDTIME Authorizing Provider: CINDY SINCLAIR * Telephone Encounter - Sondra Modi CMA - 06/20/2023 8:41 AM ESTPending Prescriptions: Disp Refills Pramipexole Dihydrochloride 0.25 MG Oral T*100 Ta*3 Sig: TAKE ONE TABLET BY MOUTH AT BEDTIME * Telephone Encounter - Sondra Modi CMA - 06/20/2023 8:39 AM EST Pending Prescriptions: Disp Refills Pramipexole Dihydrochloride 0.25 MG Oral *100 Ta*3 Sig: TAKE ONE TABLET BY MOUTH AT BEDTIME Last Visit: 12/25/2022 (in office), Visit date not found (telemedicine) Next Visit: 07/09/2023 Last date the medication was ordered: 04/15/2022 Patient Active Problem List Diagnosis Code Restless [...] G89.29 No diabetic retinopathy in both eyes [id number] History of GI diverticular bleed Z87.19 Microalbuminuria R80.9 DM type 2, goal HbA1c < 8% ([facility]) 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 J44.89 Primary open-angle glaucoma, left eye, mild stage H40.1121 HTN, goal below 140/90 I10 Recurrent major depressive disorder, in remission ([facility]) F33.40 History of [place] (myocardial infarction) I25.2 Hypomagnesemia E83.42 Occupational exposure to other air contaminants Z57.39 Atherosclerosis of [place] coronary artery without angina pectoris I25.10 History of cholecystectomy Z90.49 Diabetic polyneuropathy associated with type 2 diabetes mellitus (HCC) E11.42 Chronic right shoulder pain M25.511, G89.29 Labs: Lab Results Component Value Date/Time CREATININE - [facility] 1.0 06/17/2023 12:09 PM CREATININE - [facility] 1.2 06/30/2019 03:18 PM CREATININE, RANDOM URINE - [facility] 168 06/12/2022 11:08 AM CREATININE, RANDOM URINE - [facility] 75 11/19/2019 02:53 PM CREATININE-OUTSIDE LAB 0.68 10/15/2021 12:00 AM Lab Results Component Value Date/Time POTASSIUM - [facility] 5.6 (H) 06/17/2023 12:09 PM POTASSIUM - [facility] 5.2 (H) 06/30/2019 03:18 PM POTASSIUM-OUTSIDE LAB 2.8 (A) 10/15/2021 12:00 AM Lab Results Component Value Date/Time TSH - [facility] 3.91 06/17/2023 12:09 PM TSH - [facility] 2.88 06/30/2019 03:18 PM TSH - OUTSIDE LAB 3.710 11/09/2020 12:00 AM Lab Results Component Value Date/Time LDL (CALCULATED)-[facility]IDE [facility] 50.80 11/09/2020 12:00 AM LDL (CALCULATED)-[facility] 91.80 03/29/2020 12:00 AM LDL (DIRECT MEASURE)-[facility]TSIDE LAB 71 11/09/2020 12:00 AM LDL (DIRECT MEASURE)-[facility]TSIDE LAB 87 09/27/2019 12:00 AM LDL CHOLESTEROL (CALCULATED) - [facility] 88 02/05/2016 08:55 AM LDL CHOLESTEROL (DIRECT MEASURE) - [facility] 50 06/17/2023 12:09 PM LDL CHOLESTEROL (DIRECT MEASURE) - [facility] 55 06/12/2022 11:08 AM LDL CHOLESTEROL (DIRECT MEASURE) - [facility] NOT APPLICABLE 02/05/2016 08:55 AM Lab Results Component Value Date/Time ALT - [facility] 14 06/17/2023 12:09 PM ALT - [facility] 25 02/05/2016 08:55 AM ALT-OUTSIDE LAB 24 11/29/2016 12:00 AM Hemoglobin AIC Results: Lab Results Component Value Date/Time HEMOGLOBIN A1C - [facility] 7.7 (H) 06/17/2023 12:09 PM HEMOGLOBIN A1C - [facility] 7.7 (H) 12/25/2022 12:15 PM HEMOGLOBIN A1C - [facility] 7.9 (H) 06/12/2022 11:08 AM HEMOGLOBIN A1C - [facility] 7.7 (H) 08/11/2018 12:02 PM HEMOGLOBIN A1C - [facility] 6.3 (H) 01/07/2018 01:52 PM HEMOGLOBIN A1C - [facility] 5.8 02/05/2016 08:55 AM * Telephone Encounter - Demetrice Baeza - 06/20/2023 5:11 AM ESTPending Prescriptions: Disp Refills Pramipexole Dihydrochloride 0.25 MG Oral T*100 Ta*3 Sig: TAKE ONE TABLET BY MOUTH AT BEDTIME documented in this encounter Plan of Treatment Upcoming Encounters Date Type Department Care Team (Late st Contact Info) Description 06/23/2023 2:00 PM EST Office Visit Dermatology [address] [place] [address] Charline Hurst PA-C [address] [place] [address] [place] [address] 07/09/2023 10:30 AM EDT Office Visit Family Medicine [address] [place] [phone] Cindy Sinclair DO [address] [place] [address] [place] [address] 07/21/2023 11:00 AM EDT Office Visit Interventional Pain Center, [address] [place] [address] Saige Preston PA-C 132 [facility] [place] [address] 08/26/2023 7:15 AM EDT Cardiac Studies Cardiac Studies, [address] [place] [address] 08/26/2023 8:15 AM EDT Imaging [facility] 2nd Floor Cardiology, [place] 132 [facility] [place] [address] Gw, Excess Time Radiology 132 [facility] [place] [address] 08/29/2023 9:40 AM EDT Office Visit Podiatry [address] [place] [address] Melinda Stallworth, DPM 400 [facility] [place] [address] 06/16/2024 10:20 AM EST Office Visit Dermatology [address] [place] [address] Charline Hurst PA-C [address] [place] [address] [place] [address] Scheduled Procedures Name Priority Associated Diagnoses Date/Ti [...] this encounter Medical Devices Implanted Type Area Instrument Maker And Repairer Device Identifier Shelf Expiration Date Model / Serial / Lot Mesh 3dmax 3.1x5.3in t Med - [id number] Implanted:Qty: 1 on 05/02/2023 by Jean Claude Givens MD at OR [facility] Right: Groin CR BARD : DAVOL 03/25/2027 [id number] / / [id number] documented as of this encounter Visit Diagnoses Diagnosis Restless legs syndrome Restless legs syndrome (RLS) documented in this encounter Advance Directives Latest [...] Discussed due to patient's condition Care Teams Distribution Warehouse Manager Relationship Specialty Start Date End Date Cindy Sinclair DO [address] [place] [address] [place] [address] PCP - General Internal Medicine 02/05/16 documented as of this encounter
--- OUTSIDE RECORDS SUMMARY | 2023-10-04 23:12 | External Medical Summary ---
Author Name Unknown Address Unknown Organization K01:[facility] - [address] [place] [address] Laboratory Report Ordering Provider Test Date Status JESSICA WHITEON 07/09/2023 11:35:51 Final Observation Date Value Abnormality Reference (Units ) Status Magnesium 07/09/2023 11:35:51 1.5 1.5-2.6 (m g/dL) Final Performing Location [facility] - [address] [place] [address]
--- OUTSIDE RECORDS SUMMARY | 2023-10-04 23:12 | External Medical Summary ---
Author Name Unknown Address Unknown Organization K01:[facility]ORATORY [facility] - [address] [place] [address] Laboratory Report Ordering Provider Test Date Status OSEI GUTIÉRREZ 07/09/2023 11:35:51 Final Observation Date Value Abnormality Reference (Units ) Status Potassium 07/09/2023 11:35:51 5.2 Above high normal 3. 5-5.1 (mmol/L) Final Performing Location LAB[facility] - [address] [place] [address]
--- OUTSIDE RECORDS SUMMARY | 2023-10-04 23:12 | External Medical Summary ---
Author Name Unknown Address Unknown Organization K01:LABORATORY [facility] - [address] [place] [address] Laboratory Report Ordering Provider Test Date Status OSEI GUTIÉRREZ 06/23/2023 13:59:53 Final Observation Date Value Abnormality Reference (Units ) Status Potassium 06/23/2023 13:59:53 4.4 3.5-5.1 (m mol/L) Final Performing Location [facility] - [address] [place] [address]
--- OUTSIDE RECORDS SUMMARY | 2023-10-04 23:12 | External Medical Summary | Summary of Care ---
Author Name Unknown Organization [facility] Address [address] [facility] [place] [address] Phone [phone] Care Team Providers Care Staff Physician Name Role Phone BarrosSakshi austin Primary Care Provider + [phone] Reason for Visit * Reason Comments Outpatient Testing Encounter Details Date Type Department Care Team (Late st Contact Info) Description 07/09/2023 11:30 AM EDT Laboratory Laboratory [address] [place] [phone] [place], Lab [address] [place] [address] HTN, goal below 140/90; Hypomagnesemia; Hyperlipidemia with target LDL less than 70; Diabetic polyneuropathy associated with type 2 diabetes mellitus (HCC); AK (actinic keratosis); 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; Type 2 diabetes mellitus with diabetic neuropathy, without long-term current use of insulin ([facility]) Allergies No known active allergiesdocumented as [...] diabetes mellitus with diabetic neuropathy, unspecified ([facility]) TAKE 1 TABLET BY MOUTH TWICE [...] type 2, goal HbA1c < 8% ([facility]) USE ONCE DAILY 100 Each 3 08/21/2022 4 Active Lantus SoloStar 100 UNIT/ML Subcutaneous Solution Pen-injectorIndicati ons:DM type 2, goal HbA1c < 8% ([facility]) INJECT 15 UNITS UNDER THE SKIN DAILY 15 mL 3 06/07/2022 4 Active Additional Information Patient taking differently: 15 Units Subcutaneous ONCE, Reported on 04/29/2023 Sertraline HCl 50 MG Oral Tablet (Zoloft)Indications: Anxiety TAKE 1 TABLET BY MOUTH EVERYDAY AT BEDTIME 90 Tablet 2 11/16/2022 Active OneTouch Delica Plus [id number] :Type 2 diabetes mellitus with diabetic neuropathy, without long-term current use of insulin ([facility]) Test up to four times daily [...] Statin History of cholecystectomy 10/15/2021 Atherosclerosis of [place] co ronary artery without angina pectoris 05/29/2021 Last Assessment & Plan: Continue statin, metoprolol, lisinopril Not on aspirin due to GI bleeding Occupational exposure to other air contaminants 11/21/2020 Hypomagnesemia 11/10/2020 Recurrent major depressive disorder, in [facility] n 05/22/2020 History of [place] (myocardial infarction) 05/22/2020 Primary open-angle glaucoma, left [...] Overview: From Dr. Nuñez. Will recheck through [employer] next time he is seen. Major depressive [...] range 120 to 150. Last hemoglobin A1c 7.84679 continue metformin, Lantus Rectal bleeding 02/05/2016 01/10/2017 Overview: Had EGD/colonoscopy Acute blood loss anemia 02/05/201612/27 HTN, goal below 140/90 02/05/201601/10 Neuropathy 02/05/2016 01/10/2017 AK (actinic keratosis) 01/12/201401/10 Overview: Efudex (Salina Vazquez)- 04/2014 documented as of this encounter (statuses as of 07/09/2023) Immunizations Name Administration Dates Next Due COVID-19 mRNA, LNP-s, No Pre serve, 2-Dose Series (Intellinote) 04/05/2021,07/04/2020,06/13/2020 COVID-19, MRNA-LNP, 23-24, P F, 30 [...] AM EDT Office Visit Interventional Pain Center, [facility] 132 [place] [address] Saige Preston PA-C 132 [place] [address] 08/26/2023 7:15 AM EDT Cardiac Studies Cardiac Studies, [facility] [place] [address] 08/26/2023 8:15 AM EDT Imaging [facility] 2nd Floor Cardiology, [place] [address] Gw, Excess Time Radiology [address] [place] [address] 08/29/2023 9:40 AM EDT Office Visit Podiatry [facility] 132 [place] [address] Melinda Stallworth, DPM 400 [facility] [place] [address] 02/13/2024 9:30 AM EDT Office Visit Family Medicine [address] [place] [phone] Sakshi Barros [address] [place] [address] 06/16/2024 10:20 AM EST Office Visit Dermatology [address] [place] [address] Charline Hurst PA-C [address] [place] [address] [place] [address] Pending Results Name Type Priority Associated Diagnoses Date /Time POTASSIUM Lab Routine HTN, goal below 140/90 Hypomagnesemia Hyperlipidemia with target LDL less than 70 Diabetic polyneuropathy associated with type 2 diabetes mellitus (HCC) AK (actinic keratosis) 07/09/2023 11:35 AM EDT VITAMIN B12 Lab Routine 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 07/09/2023 11:35 AM EDT MAGNESIUM Lab Routine [facility] current use of therapeutic drug 07/09/2023 11:35 [...] this encounter Medical Devices Implanted Type Area Contact Lens Blocker Device Identifier Shelf Expiration Date Model / Serial / Lot Mesh 3dmax 3.1x5.3in t Med - [id number] Implanted:Qty: 1 on 05/02/2023 by Jean Claude Givens MD at OR [facility] Right: Groin CR BARD : DAVOL 03/25/2027 [id number] / / [id number] documented as of this encounter Visit Diagnoses Diagnosis HTN, goal below 140/90 Unspecified essential hypertension Hypomagnesemia Disorders of magnesium metabolism Hyperlipidemia with target LDL less than 70 Other and unspecified hyperlipidemia Diabetic polyneuropathy associated with type 2 diabetes mellitus (HCC) AK (actinic keratosis) Actinic keratosis [facility] current use of therapeutic drug Type 2 [...] Discussed due to patient's condition Care Teams Staff Physician Relationship Specialty Start Date End Date Sakshi Barros DO [address] [place] [address] [place] [address] PCP - General Internal Medicine 02/05/16 documented as of this encounter
--- OUTSIDE RECORDS SUMMARY | 2023-10-04 23:12 | External Medical Summary | Summary of Care ---
Author Name Unknown Organization [facility] Address [address] [facility] [place] [address] Phone [phone] Care Team Providers Care Food Services Director Name Role Phone Cindy Sinclair DO Primary Care Provider [phone] Reason for Visit * Reason Comments Other Encounter Details Date Type Department Care Team (Late st Contact Info) Description 06/23/2023 2:00 PM EST Office Visit Dermatology [address] [place] [address] Charline Hurst PA-C [address] [place] [address] [place] [address] Irritant contact dermatitis due to drug in [...] 2 diabetes mellitus with diabetic neuropathy, unspecified ([facility]) TAKE 1 TABLET BY MOUTH TWICE A [...] 2, goal HbA1c < 8% ([facility]) USE ONCE DAILY 100 Each 3 3 08/21/19 24 Active Lantus SoloStar 100 UNIT/ML Subcutaneous Solution Pen-injectorIndicati ons:DM type 2, goal HbA1c < 8% ([facility]) INJECT 15 UNITS UNDER THE SKIN DAILY 15 mL 3 3 07/25/19 24 Active Additional Information Patient taking differently: 15 Units Subcutaneous ONCE, Reported on 04/29/2023 Sertraline HCl 50 MG Oral Tablet (Zoloft)Indications: Anxiety TAKE 1 TABLET BY MOUTH EVERYDAY AT BEDTIME 90 Tablet 2 3 Active OneTouch Delica Plus [id number] :Type 2 diabetes mellitus with diabetic neuropathy, without long-term current use of insulin ([facility]) Test up to four times daily 400 [...] Statin History of cholecystectomy 10/15/2021 Atherosclerosis of [place] co ronary artery without angina pectoris 05/29/2021 Last Assessment & Plan: Continue statin, metoprolol, lisinopril Not on aspirin due to GI bleeding Occupational exposure to other air contaminants 11/21/2020 Hypomagnesemia 11/10/2020 Recurrent major depressive disorder, in [facility] n 05/22/2020 History of [place] (myocardial infarction) 05/22/2020 Primary open-angle glaucoma, left [...] Overview: From Dr. Nuñez. Will recheck through [facility] next time he is seen. Major depressive [...] range 120 to 150. Last hemoglobin A1c 7.45721 continue metformin, Lantus Rectal bleeding 02/05/2016 01/10/2017 [...] MCG/0.3 mL, 12 YRS AND ABOVE, IM (Sprout Route-Comirnaty) 02/24/2023 Pneumococcal Conjugate Vacc, 13 Valent (Prevnar) [...] zinc. Product examples; Think sport, Think baby, [place], [employer], [employer], [employer] Options baby. "Baby" products can be used for all ages. documented in this encounter Progress Notes * Charline Hurst PA-C - 06/23/2023 2:00 [...] 06/21) Reviewed, same day as visit, 0 [facility] Dermatology lab work(s)/pathology report(s) as well as [...] BEDTIME 90 Tablet 2 OneTouch Delica Plus [id number] Test up to four times daily 400 [...] weeks and then send photos through My [facility]/My Chart at end of treatment. 40 g [...] Charline Hurst PA-C 06/23/2023 1:56 PM Ref: SELF[[id number]] NO STREET ADDRESS AVAILABLE None (office) None (fax) PCP: CINDY SINCLAIR [address] [place] [address] [place] [address] documented in this encounter Nursing Notes * Yuko Ludwig LPN - 06/23/2023 2:06 PM EST Chief Complaint Patient presents with Other documented in this encounter Plan of Treatment Upcoming Encounters Date Type Department Care Team (Late st Contact Info) Description 07/09/2023 10:30 AM EDT Office Visit Family Medicine [address] [place] [phone] [place] [address] 07/21/2023 11:00 AM EDT Office Visit Interventional Pain Center, [facility] [address] [place] [address] Saige Preston PA-C [address] [place] [address] 08/26/2023 7:15 AM EDT Cardiac Studies Cardiac Studies, [facility] [address] [facility] [place] [address] 08/26/2023 8:15 AM EDT Imaging [facility] 2nd Floor Cardiology, [place] [address] [place] [address] Gw, Excess Time Radiology [address] [facility] [place] [address] 08/29/2023 9:40 AM EDT Office Visit Podiatry [facility] [address] [place] [address] Melinda Stallworth, MABEL 400 [facility] [place] [address] 06/16/2024 10:20 AM EST Office Visit Dermatology [address] [place] [address] Charline Hurst PA-C [address] [place] [address] [place] [address] Scheduled Procedures Name Priority Associated Diagnoses Date/Ti [...] this encounter Medical Devices Implanted Type Area Percussion Welding Machine Operator Device Identifier Shelf Expiration Date Model / Serial / Lot Mesh 3dmax 3.1x5.3in t Med - [id number] Implanted:Qty: 1 on 05/02/2023 by Jean Claude Givens MD at OR [facility] Right: Groin CR BARD : DAVOL 03/25/2027 [id number] / / [id number] documented as of this encounter Visit Diagnoses [...] Code 02/19/2022 2:45 PM 02/19/2022 7:48 PM Th is order reflects the patients wishes and were consensually agreed upon. Question Answer Comments Discussion of Advance Directives occurred with: Not Discussed due to patient's condition Full Code 02/19/2022 1:50 PM 02/19/2022 2:45 PM Thi s order reflects the patients wishes and were consensually agreed upon. Question Answer Comments Discussion of Advance Directives occurred with: Not Discussed due to patient's condition Care Teams Food Services Director Relationship Specialty Start Date End Date Cindy Sinclair DO [address] [place] [address] [place] [phone] PCP - General Internal Medicine 02/05/16 documented as of this encounter
--- OUTSIDE RECORDS SUMMARY | 2023-10-04 23:13 | External Medical Summary ---
Author Name Unknown Address Unknown Organization K01:[facility] - [address] [facility] [address] Laboratory Report Ordering Provider Test Date Status OSEI GUTIÉRREZ 06/17/2023 12:09:04 Final Observation Date Value Abnormality Reference (Units ) Status BUN 06/17/2023 12:09:04 18 6-20 (mg/dL) Final Creatinine 06/17/2023 12:09:04 1.0 0.6-1.2 (mg/dL) Final Glomerular filtration rate/1.73 sq M.predicted [Volume Rate/Area] in Serum, Plasma or Blood by Creatinine-based formula (CKD-EPI) 06/17/2023 12:09:04 79 >=60 (mL/min) Final eGFR is calculated based on the CKD-EPI 2020 equation SODIUM 06/17/2023 12:09:04 135 135-146 (m mol/L) Final Potassium 06/17/2023 12:09:04 5.6 Above high normal 3. 5-5.1 (mmol/L) Final Cl 06/17/2023 12:09:04 104 98-107 (mm ol/L) Final CO2 06/17/2023 12:09:04 20 Below low normal 22- 32 (mmol/L) Final Anion gap 06/17/2023 12:09:04 11 7-15 (mmol /L) Final Glucose 06/17/2023 12:09:04 226 Above high normal 70 -120 (mg/dL) Final Albumin 06/17/2023 12:09:04 4.5 3.8-5.0 (g /dL) Final AST (Aspartate aminotransferase) 06/17/2023 12:09:04 16 10-50 (U/L) Fin al Alk Phos 06/17/2023 12:09:04 57 35-130 (U/ L) Final Bilirubin, Total 06/17/2023 12:09:04 0.5 <=1 .2 (mg/dL) Final Calcium 06/17/2023 12:09:04 10.1 8.4-10.2 ( mg/dL) Final Protein 06/17/2023 12:09:04 7.0 6.0-8.3 (g /dL) Final ALT (Alanine aminotransferase) 06/17/2023 12:09:04 14 10-50 (U/L) Pranav brown Performing Location [facility]ORY [facility] - [address] [facility] [address]
--- OUTSIDE RECORDS SUMMARY | 2023-10-04 23:13 | External Medical Summary | Summary of Care ---
Author Name Unknown Organization [facility] Address [address] [facility] [place] [address] Phone [phone] Care Team Providers Care Stock Handler Name Role Phone Sakshi Barros Primary Care Provider [phone] Reason for Visit * Reason Onset Date Comments Test Results Biopsy 06/09/2023 Encounter Details Date Type Department Care Team (Late st Contact Info) Description 06/09/2023 Telephone Dermat[address] [place] [address] Charline Hurst PA-C [address] [place] [address] [place] [address] Test Results Biopsy Allergies No known active allergiesdocumented as of this encounter (statuses as of 06/16/2023) Medications Medication Sig Dispensed Refills Start Date [...] Reported on 10/28/2022 Vitamin D3 50 MCG (1999 UT) Oral Capsule Take 1 Capsule by mouth in the morning. 0 Active Probiotic 1-250 BILLION-MG Oral Capsule Take by mouth. 0 Active OneTouch Verio In Vitro Strip (Glucose Blood)Indications:Ty pe 2 diabetes mellitus with diabetic neuropathy, without long-term current use of insulin ([facility]) USE UP TO 3 TIMES A [...] MMIndications:DM type 2, goal HbA1c < 8% ([facility]) USE ONCE DAILY 100 Each 3 3 08/21/19 24 Active Lantus SoloStar 100 UNIT/ML Subcutaneous Solution Pen-injectorIndicati ons:DM type 2, goal HbA1c < 8% ([facility]) INJECT 15 UNITS UNDER THE SKIN DAILY 15 mL 3 3 07/25/19 24 Active Additional Information Patient taking differently: 15 Units Subcutaneous ONCE, Reported on 04/29/2023 Pramipexole Dihydrochloride 0.25 MG Oral Tablet (Mirapex)Indications :Restless legs syndrome TAKE ONE TABLET BY MOUTH AT BEDTIME 100 Tablet 3 2 06/28/19 24 Active Sertraline HCl 50 MG Oral Tablet (Zoloft)Indications: Anxiety TAKE 1 TABLET BY MOUTH EVERYDAY AT BEDTIME 90 Tablet 2 3 Active OneTouch Delica Plus [id number] :Type 2 diabetes mellitus with diabetic neuropathy, [...] the morning. 200 Capsule 3 4 Active Lisinopril 2.5 MG Oral Tablet (Prinivil) TAKE ONE TABLET BY MOUTH EVERY MORNING 90 Tablet 1 4 05/15/19 25 Active Metoprolol Succinate ER 25 MG Oral Tablet Extended Release 24 Hour (toPROL XL)Indications:HTN, goal below 140/90 TAKE ONE-HALF TABLET BY MOUTH IN THE MORNING 45 Tablet 3 4 05/28/19 25 Active Fluorouracil 5 % External Cream (Efudex) Apply thin layer to top of scalp and entire face (except for chin) 2x daily for 3 weeks and then send photos through My [employer]/My Chart at end of treatment. 40 g 1 4 Active Potassium Chloride Angélica ER 20 MEQ Oral Tablet Extended Release TAKE ONE TABLET BY MOUTH TWICE A DAY WITH MORNING AND EVENING MEALS 200 Tablet 1 3 06/11/19 24 Discontinu ed(Refill) documented as of this encounter (statuses as of 06/16/2023) Active Problems Problem Noted Date Diagnosed Date [...] Statin History of cholecystectomy 10/15/2021 Atherosclerosis of [place] co ronary artery without angina pectoris 05/29/2021 Last Assessment & Plan: Continue statin, metoprolol, lisinopril Not on aspirin due to GI bleeding Occupational exposure to other air contaminants 11/21/2020 Hypomagnesemia 11/10/2020 Recurrent major depressive disorder, in [facility] 05/22/2020 History of [place] (myocardial infarction) [...] as of this encounter (statuses as of 06/16/2023) Resolved Problems Problem Noted Date Diagnosed Date Resolved Date Absolute anemia 02/21/2021 06/12/2022 Abnormal thyroid blood test 03/30/2020 11/21/2020 Overview: From Dr. Nuñez. Will recheck through [facility] next time he is seen. Major depressive [...] range 120 to 150. Last hemoglobin A1c 7.02821 continue metformin, Lantus Rectal bleeding 02/05/2016 01/10/2017 Overview: Had EGD/colonoscopy Acute blood loss anemia 02/05/201612/27 HTN, goal below 140/90 02/05/201601/10 Neuropathy 02/05/2016 01/10/2017 AK (actinic keratosis) 01/12/201401/10 Overview: Efudex (Salina Vazquez)- 04/2014 documented as of this encounter (statuses as of 06/16/2023) Immunizations Name Administration Dates Next Due COVID-19 mRNA, LNP-s, No Pre serve, 2-Dose Series ([employer]) 04/05/2021,07/04/2020,06/13/2020 COVID-19, MRNA-LNP, 23-24, P F, 30 [...] encounter Miscellaneous Notes * Telephone Encounter - Laura Jenkins OSA - 06/16/2023 2:23 PM EST Patient called [facility] office and I scheduled appt with Charline to reshave the lesion. * Telephone Encounter - Azalea Wallaec OSA - 06/13/2023 1:40 PM EST Patient called to schedule additional testing. Please call patient * Telephone Encounter - Corrina Gupta LPN - 06/12/2023 9:36 AM EST Called pt and left VM advising that he give us a call back in order to get this apt scheduled. * Telephone Encounter - Charline Hrust PA-C - 06/11/2023 4:06 PM EST Spoke to pt regarding bx result. At least SCCIS, would like to reshave the lesion in the office andsee if it needs Mohs. Pt is aware he will be called to schedule the appt in [facility]. Charline GARDNER PA-C A. Skin, R lateral cheek, shave: Squamous cell carcinoma in-situ, at least (see comment) Comment: In these sections, invasive carcinoma is not identified; however, the base of the lesion is partially transected, focally limiting assessment for a more proliferative process. * Telephone Encounter - Lynne Hermosillo RN - 06/11/2023 3:53 PM EST THIS PATIENT IS NOT ACTIVE WITH CASE MANAGEMENT. Charline, Patient left me a voicemail. Said you sent him a note about not being able to get in contact with him, and wanting to do more work on his skin? Reports he is available anytime. Just let him know when to come in. Thank you. * Telephone Encounter - Sylvia Raya LPN - 06/09/2023 11:26 AM EST ----- Message from Charline Hurst PA-C sent at 06/09/2023 11:22 AM EST ----- Sent a patient portal message since his home phone number would not accept our call (screening) andcell phone went right to generic voicemail. At least SCCIS, would like to reshave the lesion in theoffice and see if it needs Mohs. Charline GREENWOODS, DORIS A. Skin, R lateral cheek, shave: Squamous cell carcinoma in-situ, at least (see comment) Comment: In these sections, invasive carcinoma is not identified; however, the base of the lesion is partially transected, focally limiting assessment for a more proliferative process. documented in this encounter Plan of Treatment Upcoming Encounters Date Type Department Care Team (Late st Contact Info) Description 06/17/2023 11:30 AM EST Office Visit Cardiology [address] [place] [address] Tito House PA-C [address] [place] [address] 06/23/2023 2:00 PM EST Office Visit Dermatology [address] [place] [address] Charline Hurst PA-C [address] [place] [address] [place] [address] 07/09/2023 10:30 AM EDT Office Visit Family Medicine [address] [place] [address] Sakshi Barros DO [address] [place] [address] [place] [address] 07/21/2023 11:00 AM EDT Office Visit Interventional Pain Center, [facility] [address] [place] [address] Saige Preston PA-C [address] [place] [address] 08/29/2023 9:40 AM EDT Office Visit Podiatry [facility] [address] [place] [address] Melinda Stallworth, DPM [address] [place] [address] 06/16/2024 10:20 AM EST Office Visit Dermatology [address] [place] [address] Charline Hurst PA-C [address] [place] [address] [place] [address] Scheduled Procedures Name Priority Associated Diagnoses Date/Ti me ESOPHAGOGASTRODUODENOSCOPY ( EGD), FLEXIBLE, TRANSORAL, DIAGNOSTIC Recall Alberto's esophagus with esophagitis COLONOSCOPY FLEXIBLE PROXIMAL DIAGNOSTIC Recall Screening for colon cancer Health Maintenance Due Date Last Done Comments Alpha-1 Antitrypsin 01/16/1963 Depression Screening 02/21/2022 02/21/2021 Albumin/Creatinine Ratio 06/12/2023 023, 03/06/2022, 12/04/2021, Additional history exists B-12 06/12/2023 06/12/2022, 09/2020, 11/21/2020, Additional history exists HbA1c 06/26/2023 12/25/2022, 05/29, 12/04/2021, Additional history exists Diabetic Eye Exam 09/25/2023 09/24/2022, , 09/24/2022, Additional history exists GFR 12/14/2023 12/13/2022, 12/27, 10/22/2021, Additional history exists Diabetic Foot Exam 12/26/2023 12/25/2022, 1 05/06/2021, 05/29/2021, Additional history exists O2 ASSESSMENT COMPLETED IN PAST YEAR FOR COPD 05/02/2024 05/02/2023 Alberto's Esophagus Surveilance 03/04/2026 03/04/2023, 03/04/2023, 01/30/2022, [...] this encounter Medical Devices Implanted Type Area Special Events Director Device Identifier Shelf Expiration Date Model / Serial / Lot Mesh 3dmax 3.1x5.3in t Med - [id number] Implanted:Qty: 1 on 05/02/2023 by Jean Claude Givens MD at OR [facility] Right: Groin CR BARD : DAVOL 03/25/2027 [id number] / / [id number] documented as of this encounter Advance Directives [...] Discussed due to patient's condition Care Teams Stock Handler Relationship Specialty Start Date End Date Sakshi Barros DO [address] [place] [address] [place] [address] PCP - General Internal Medicine 02/05/16 documented as of this encounter
--- OUTSIDE RECORDS SUMMARY | 2023-10-04 23:13 | External Medical Summary | Summary of Care ---
Author Name Unknown Organization [facility] Address [address] [facility] [place] [address] Phone [phone] Care Team Providers Care Consulting Software Engineer Name Role Phone BarrosSakshi austin Primary Care Provider [phone] Encounter Details Date Type Department Care Team (Late st Contact Info) Description 06/12/2023 Orders Only PATIENT PORTAL DO NOT DELETE THIS DEPT USED BY [place] [id number] Allergies No known active allergiesdocumented as of this encounter (statuses as of 06/12/2023) Medications Medication Sig Dispensed Refills Start Date [...] MMIndications:DM type 2, goal HbA1c < 8% ([facility]) USE ONCE DAILY 100 Each 3 08/21/2022 4 Active Lantus SoloStar 100 UNIT/ML Subcutaneous Solution Pen-injectorIndicati ons:DM type 2, goal HbA1c < 8% ([facility]) INJECT 15 UNITS UNDER THE [...] Tablet 2 11/16/2022 Active OneTouch Delica Plus [id number] :Type 2 diabetes mellitus with diabetic neuropathy, [...] the morning. 200 Capsule 3 04/30/2023 Active Lisinopril 2.5 MG Oral Tablet (Prinivil) TAKE ONE TABLET BY MOUTH EVERY MORNING 90 Tablet 1 05/16/2023 5 Active Metoprolol Succinate ER 25 MG Oral [...] as of this encounter (statuses as of 06/12/2023) Active Problems Problem Noted Date Diagnosed Date [...] Statin History of cholecystectomy 10/15/2021 Atherosclerosis of [place] co ronary artery without angina pectoris 05/29/2021 Last Assessment & Plan: Continue statin, metoprolol, lisinopril Not on aspirin due to GI bleeding Occupational exposure to other air contaminants 11/21/2020 Hypomagnesemia 11/10/2020 Recurrent major depressive disorder, in [facility] 05/22/2020 History of [place] (myocardial infarction) 05/22/2020 Primary open-angle glaucoma, left [...] as of this encounter (statuses as of 06/12/2023) Resolved Problems Problem Noted Date Diagnosed Date Resolved Date Absolute anemia 02/21/2021 06/12/2022 Abnormal thyroid blood test 03/30/2020 11/21/2020 Overview: From Dr. Nuñez. Will recheck through [facility] next time he is seen. Major depressive [...] range 120 to 150. Last hemoglobin A1c 7.03592 continue metformin, Lantus Rectal bleeding 02/05/2016 01/10/2017 Overview: Had EGD/colonoscopy Acute blood loss anemia 02/05/201612/27 HTN, goal below 140/90 02/05/201601/10 Neuropathy 02/05/2016 01/10/2017 AK (actinic keratosis) 01/12/201401/10 Overview: Efudex (Salina Vazquez)- 04/2014 documented as of this encounter (statuses as of 06/12/2023) Immunizations Name Administration Dates Next Due COVID-19 mRNA, LNP-s, No Pre serve, 2-Dose Series ([employer]) 04/05/2021,07/04/2020,06/13/2020 COVID-19, MRNA-LNP, 23-24, P F, 30 MCG/0.3 mL, 12 YRS AND ABOVE, IM (P[employer]ZER-Comirnat) 02/24/2023 Pneumococcal Conjugate Vacc, 13 Valent (Prevnar) [...] Date Smoking Tobacco: Former Cigarettes 2 32 Q uit: 11/26/1989 Smokeless Tobacco: Never Alcohol Use Standard [...] 06/17/2023 11:30 AM EST Office Visit Cardiology [address] [place] [address] Tito House PA-C [address] [address] 07/09/2023 10:30 AM EDT Office Visit Family Medicine [address] [place] [address] Sakshi Barros [address] [place] [address] 07/21/2023 11:00 AM EDT Office Visit Interventional Pain Center, [facility] [address] [address] Saige Preston PA-C [address] [place] [address] 08/29/2023 9:40 AM EDT Office Visit Podiatry [facility] [address] [place] [address] Melinda Stallworth, DPM [address] [place] [address] 06/16/2024 10:20 AM EST Office Visit Dermatology [address] [place] [address] Charline Hurst PA-C [address] [place] [address] [place] [address] Scheduled Procedures Name Priority Associated Diagnoses Date/Ti me ESOPHAGOGASTRODUODENOSCOPY ( EGD), FLEXIBLE, TRANSORAL, DIAGNOSTIC Recall Alberto's esophagus with esophagitis COLONOSCOPY FLEXIBLE PROXIMAL DIAGNOSTIC Recall Screening for colon cancer Health Maintenance Due Date Last Done Comments Alpha-1 Antitrypsin 01[birth year]16/1963 Hepatitis B (1 of 3 - Risk 3-dose series) 2006 Depression Screening 02/21/2022 02/21/2021 Albumin/Creatinine Ratio 06/12/2023 023, 03/06/2022, 12/04/2021, Additional history exists B-12 06/12/2023 06/12/2022, 1009/2020, 11/21/2020, Additional history exists HbA1c 06/26/2023 12/25/2022, [...] this encounter Medical Devices Implanted Type Area Digital Media Associate Device Identifier Shelf Expiration Date Model / Serial / Lot Mesh 3dmax 3.1x5.3in t Med - [id number] Implanted:Qty: 1 on 05/02/2023 by Jean Claude Givens MD at OR [facility] Right: Groin CR BARD : DAVOL 03/25/2027 [id number] / / [id number] documented as of this encounter Advance Directives [...] Discussed due to patient's condition Care Teams Consulting Software Engineer Relationship Specialty Start Date End Date Sakshi Barros DO [address] [place] [address] [place] [address] PCP - General Internal Medicine 02/05/16 documented as of this encounter
--- OUTSIDE RECORDS SUMMARY | 2023-10-04 23:13 | External Medical Summary | Summary of Care ---
Author Name Unknown Organization [facility] Address [address] [facility] [place] [address] Phone [phone] Care Team Providers Care Product Safety Tester Name Role Phone Sakshi Barros Primary Care Provider [phone] Reason for Visit * Reason Onset Date Comments Test Results Biopsy 06/09/2023 Encounter Details Date Type Department Care Team (Late st Contact Info) Description 06/09/2023 Telephone [address]erm[address] [place] [address] Charline Hurst PA-C [address] [place] [address] [place] [address] Test Results Biopsy Allergies No known active [...] neuropathy, without long-term current use of insulin ([facility]) USE UP TO 3 TIMES A DAY [...] MMIndications:DM type 2, goal HbA1c < 8% ([facility]) USE ONCE DAILY 100 Each 3 3 08/21/19 24 Active Lantus SoloStar 100 UNIT/ML Subcutaneous Solution Pen-injectorIndicati ons:DM type 2, goal HbA1c < 8% ([facility]) INJECT 15 UNITS UNDER THE SKIN DAILY [...] Tablet 2 3 Active OneTouch Delica Plus [id number] :Type 2 diabetes mellitus with diabetic neuropathy, [...] weeks and then send photos through My [facility]/My Chart at end of treatment. 40 g [...] Statin History of cholecystectomy 10/15/2021 Atherosclerosis of [place] co ronary artery without angina pectoris 05/29/2021 Last Assessment & Plan: Continue statin, metoprolol, lisinopril Not on aspirin due to GI bleeding Occupational exposure to other air contaminants 11/21/2020 Hypomagnesemia 11/10/2020 Recurrent major depressive disorder, in [facility] 05/22/2020 History of [place] (myocardial infarction) 05/22/2020 Primary open-angle glaucoma, left [...] range 120 to 150. Last hemoglobin A1c 7.92787 continue metformin, Lantus Rectal bleeding 02/05/2016 01/10/2017 Overview: Had EGD/colonoscopy Acute blood loss anemia 02/05/201612/27 HTN, goal below 140/90 02/05/201601/10 Neuropathy 02/05/2016 01/10/2017 AK (actinic keratosis) 01/12/201401/10 Overview: Efudex (Salina Vazquez)- 04/2014 documented as of this encounter (statuses as of 06/12/2023) Immunizations Name Administration Dates Next Due COVID-19 mRNA, LNP-s, No Pre serve, 2-Dose Series ([employer]) 04/05/2021,07/04/2020,06/13/2020 COVID-19, MRNA-LNP, 23-24, P F, 30 [...] encounter Miscellaneous Notes * Telephone Encounter - Corrina Gupta LPN - 06/12/2023 9:36 AM EST Called pt and left advising that he give us a call back in order to get this apt scheduled. * Telephone Encounter - Charline Hurst PA-C - 06/11/2023 4:06 PM EST Spoke to pt regarding bx result. At least SCCIS, would like to reshave the lesion in the office andsee if it needs Mohs. Pt is aware he will be called to schedule the appt in [facility]. Charline Hurst S, PA-C A. Skin, R lateral cheek, shave: [...] and see if it needs Mohs. Charline Hurst [facility]. Skin, R lateral cheek, shave: Squamous cell [...] 06/17/2023 11:30 AM EST Office Visit Cardiology [address] [place] [address] Tito House PA-C [address] [place] [address] 07/09/2023 10:30 AM EDT Office Visit Family Medicine [address] [place] [address] [address] [place] [address] 07/21/2023 11:00 AM EDT Office Visit Interventional Pain Center, [facility] [address] [place] [address] Saige Preston PA-C [address] [place] [address] 08/29/2023 9:40 AM EDT Office Visit Podiatry [facility] [address] [place] [address] Melinda Stallworth, DPM [address] [facility] [id number] 06/16/2024 10:20 AM EST Office Visit Dermatology [address] [place] [address] Charline Hurst PA-C [address] [place] [address] [place] [address] Scheduled Procedures Name Priority Associated Diagnoses Date/Ti [...] IN PAST YEAR FOR COPD 05/02/2024 05/02/2023 Albreto's Esophagus Surveilance 03/04/2026 03/04/2023, 03/04/2023, 01/30/2022, Additional [...] this encounter Medical Devices Implanted Type Area Day Care Provider Device Identifier Shelf Expiration Date Model / Serial / Lot Mesh 3dmax 3.1x5.3in t Med - [id number] Implanted:Qty: 1 on 05/02/2023 by Jean Claude Givens MD at OR [facility] [address] Right: Groin CR BARD : DAVOL 03/25/2027 [id number] / / [id number] documented as of this encounter Advance Directives [...] Discussed due to patient's condition Care Teams Product Safety Tester Relationship Specialty Start Date End Date Sakshi Barros DO [address] [place] [address] [place] [phone] PCP - General Internal Medicine 02/05/16 documented as of this encounter
--- OUTSIDE RECORDS SUMMARY | 2023-10-04 23:13 | External Medical Summary ---
Author Name Unknown Address Unknown Organization [id number]:LABORATORY [facility] - [address] [place] [address] Laboratory Report Ordering Provider Test Date Status GIORGI HAND 06/17/2023 12:09:04 Final Observation Date Value Abnormality Reference (Units ) Status MYCODE SPECIMEN-SST 06/17/2023 12:09:04 Freezing of extracted DNA, whole blood and/or serum. Final Performing Location LABORATORY [facility] - [address] [place] [address]
--- OUTSIDE RECORDS SUMMARY | 2023-10-04 23:13 | External Medical Summary ---
Author Name Unknown Address Unknown Organization [id number]:[facility] [place] [address] [place] [address] Laboratory Report Ordering Provider Test Date Status OSEI GUTIÉRREZ 06/17/2023 12:09:04 Final Observation Date Value Abnormality Reference (Units ) Status LDL, (direct) 06/17/2023 12:09:04 50 <=129 (mg/dL) Final LDL Cholesterol Reference Ra nges (mg/dL):
<70 Target level for high risk ASCVD patient
<100 Optimal for general population
100-129 Near optimal for general population
130-159 Borderline high
160-189 High
>=190 Very high Performing Location LABORATORY [facility] - [address] [place] [address]
--- OUTSIDE RECORDS SUMMARY | 2023-10-04 23:13 | External Medical Summary | Summary of Care ---
Author Name Unknown Organization [facility] Address [address] [facility] [place] [address] Phone [phone] Care Team Providers Care Staff Consultant Name Role Phone Sakshi Barros Primary Care Provider [phone] Reason for Visit * Reason Onset Date Comments Test Results Biopsy 06/09/2023 Encounter Details Date Type Department Care Team (Late st Contact Info) Description 06/09/2023 Telephone Dermat[address] [place] [address] Charline Hurst PA-C [address] [place] [address] [place] [id number] Test Results Biopsy Allergies No known active allergiesdocumented as of this encounter (statuses as of 06/13/2023) Medications Medication Sig Dispensed Refills Start Date [...] of insulin ([facility]) USE UP TO 3 TIMES A DAY [...] < 8% ([facility]) USE ONCE DAILY 100 Each 3 3 08/21/19 24 Active Lantus SoloStar 100 UNIT/ML Subcutaneous Solution Pen-injectorIndicati ons:DM type 2, goal HbA1c < 8% ([facility]) INJECT 15 UNITS UNDER THE SKIN DAILY [...] Tablet 2 3 Active OneTouch Delica Plus [id number] :Type 2 diabetes mellitus with diabetic neuropathy, [...] weeks and then send photos through [employer]/My Chart at end of treatment. 40 g 1 4 Active Potassium Chloride Angélica ER 20 MEQ Oral Tablet Extended Release TAKE ONE TABLET BY MOUTH TWICE A DAY WITH MORNING AND EVENING MEALS 200 Tablet 1 3 06/11/19 24 Discontinu ed(Refill) documented as of this encounter (statuses as of 06/13/2023) Active Problems Problem Noted Date Diagnosed Date [...] Statin History of cholecystectomy 10/15/2021 Atherosclerosis of [place] ronary artery without angina pectoris 05/29/2021 Last Assessment & Plan: Continue statin, metoprolol, lisinopril Not on aspirin due to GI bleeding Occupational exposure to other air contaminants 11/21/2020 Hypomagnesemia 11/10/2020 Recurrent major depressive disorder, in [facility] 05/22/2020 History of [place] (myocardial infarction) 05/22/2020 Primary open-angle glaucoma, left [...] as of this encounter (statuses as of 06/13/2023) Resolved Problems Problem Noted Date Diagnosed Date [...] range 120 to 150. Last hemoglobin A1c 7.32289 continue metformin, Lantus Rectal bleeding 02/05/2016 01/10/2017 Overview: Had EGD/colonoscopy Acute blood loss anemia 02/05/201612/27 HTN, goal below 140/90 02/05/201601/10 Neuropathy 02/05/2016 01/10/2017 AK (actinic keratosis) 01/12/201401/10 Overview: Efudex (Salina Vazquez)- 04/2014 documented as of this encounter (statuses as of 06/13/2023) Immunizations Name Administration Dates Next Due COVID-19 mRNA, LNP-s, No Pre serve, 2-Dose Series ([place]) 04/05/2021,07/04/2020,06/13/2020 COVID-19, MRNA-LNP, 23-24, P F, 30 [...] encounter Miscellaneous Notes * Telephone Encounter - Azalea Wallace OSA - 06/13/2023 1:40 PM EST Patient [...] be called to schedule the appt in [facility]. DORIS Barton. Skin, R lateral cheek, shave: Squamous cell [...] theoffice and see if it needs Mohs. DORIS Barton Skin, R lateral cheek, shave: Squamous cell [...] 06/17/2023 11:30 AM EST Office Visit Cardiology [address] [place] [address] Tito House PA-C [address] [place] [address] 07/09/2023 10:30 AM EDT Office Visit Family Medicine [address] [place] [phone] Sakshi Barros[address] [place] [address] 07/21/2023 11:00 AM EDT Office Visit [facility], [facility] [address] [place] [address] Saige Preston PA-C [address] [place] [address] 08/29/2023 9:40 AM EDT Office Visit Podiatry [facility] [address] [place] [address] Melinda Stallworth, [address] [place] [address] 06/16/2024 10:20 AM EST Office Visit Dermatology [address] [place] [address] Charline Hurst PA-C [address] [place] [address] [place] [address] Scheduled Procedures Name Priority Associated Diagnoses Date/Ti [...] history exists Diabetic Foot Exam 12/26/2023 12/25/2022, 05/06/2021, 05/29/2021, Additional history exists O2 ASSESSMENT [...] this encounter Medical Devices Implanted Type Area Gore Cutter Device Identifier Shelf Expiration Date Model / Serial / Lot Mesh 3dmax 3.1x5.3in t Med - [id number] Implanted:Qty: 1 on 05/02/2023 by Jean Claude Givens MD at OR [facility] Right: Brittani JAMES BARD : DAVOL 03/[birth year]/2027 [id number] / / [id number] documented as of this encounter Advance Directives [...] due to patient's condition Care Teams Staff Consultant Relationship Specialty Start Date End Date Sakshi Barros DO [address] [place] [address] [place] [phone] PCP - General Internal Medicine 02/05/16 documented as of this encounter
--- OUTSIDE RECORDS SUMMARY | 2023-10-04 23:13 | External Medical Summary | Summary of Care ---
Author Name Unknown Organization [facility] Address [address] [facility] [place] [address] Phone [phone] Care Team Providers Care Printed Circuit Board Panels Trimmer Name Role Phone BarrosSakshi austin Primary Care Provider + [phone] Reason for Visit * Reason Comments Outpatient Testing Encounter Details Date Type Department Care Team (Late st Contact Info) Description 06/17/2023 12:10 PM EST Laboratory Laboratory [address] [place] [phone] [place] [address] [employer] Other*[id number]; DM type 2, goal HbA1c < 8% ([facility]); Hyperlipidemia with target LDL less than 70; SOB (shortness of breath) Allergies No known active allergiesdocumented as of this encounter (statuses as of 06/17/2023) Medications Medication Sig Dispensed Refills Start Date [...] Tablet 2 11/16/2022 Active OneTouch Delica Plus [id number] :Type 2 diabetes mellitus with diabetic neuropathy, without long-term current use of insulin ([facility]) Test up to four times [...] weeks and then send photos through [facility]/My Chart at end of treatment. 40 g 1 06/04/2023 Active Potassium Chloride Angélica ER 20 MEQ Oral Tablet Extended Release TAKE ONE TABLET BY MOUTH TWICE A DAY WITH MORNING AND EVENING MEALS 200 Tablet 1 06/11/2023 5 Active documented as of this encounter (statuses as of 06/17/2023) Active Problems Problem Noted Date Diagnosed Date [...] Statin History of cholecystectomy 10/15/2021 Atherosclerosis of [place] ronary artery without angina pectoris 05/29/2021 Last Assessment & Plan: Continue statin, metoprolol, lisinopril Not on aspirin due to GI bleeding Occupational exposure to other air contaminants 11/21/2020 Hypomagnesemia 11/10/2020 Recurrent major depressive disorder, in [facility] 05/22/2020 History of [place] (myocardial infarction) 05/22/2020 Primary open-angle glaucoma, left [...] as of this encounter (statuses as of 06/17/2023) Resolved Problems Problem Noted Date Diagnosed Date Resolved Date Absolute anemia 02/21/2021 06/12/2022 Abnormal thyroid blood test 03/30/2020 11/21/2020 Overview: From Dr. Nuñez. Will recheck through [employer] next time he is seen. Major [...] range 120 to 150. Last hemoglobin A1c 7.88918 continue metformin, Lantus Rectal bleeding 02/05/2016 01/10/2017 Overview: Had EGD/colonoscopy Acute blood loss anemia 02/05/201612/27 HTN, goal below 140/90 02/05/201601/10 Neuropathy 02/05/2016 01/10/2017 AK (actinic keratosis) 01/12/201401/10 Overview: Efudex (Salina Vazquez)- 04/2014 documented as of this encounter (statuses as of 06/17/2023) Immunizations Name Administration Dates Next Due COVID-19 mRNA, LNP-s, No Pre serve, 2-Dose Series ([employer]) 04/05/2021,07/04/2020,06/13/2020 COVID-19, MRNA-LNP, 23-24, P F, 30 MCG/0.3 mL, 12 YRS AND ABOVE, IM ([employer]Comirnaty) 02/24/2023 Pneumococcal Conjugate Vacc, 13 Valent (Prevnar) [...] 06/23/2023 2:00 PM EST Office Visit Dermatology [address] [place] [address] Charline Hurst PA-C [address] [place] [address] [place] [address] 07/09/2023 10:30 AM EDT Office Visit Family Medicine [address] [place] [phone] Sakshi Barros DO [address] [place] [address] [place] [address] 07/21/2023 11:00 AM EDT Office Visit Interventional [facility] Center, [address] [place] Saige Preston PA-C [address] [place] [address] 08/29/2023 9:40 AM EDT Office Visit Podiatry [facility] [address] [place] [address] Melinda Stallworth, DPM [address] [facility] [place] [address] 06/16/2024 10:20 AM EST Office Visit Dermatology [address] [place] [address] Charline Hurst PA-C [address] [place] [address] [place] [phone] Pending Results Name Type Priority Associated Diagnoses Date /Time MYCODE SUBSEQUENT ADULT Lab Routine My[employer] Other*[id number] 06/17/2023 12:09 PM EST HEMOGLOBIN A1C Lab Routine DM type 2, goal HbA1c < 8% ([facility]) 06/17/2023 12:09 PM EST LDL CHOLESTEROL (DIRECT MEASURE) Lab Routine Hyperlipidemia with target LDL less than 70 06/17/2023 12:09 PM EST COMPREHENSIVE METABOLIC PANEL Lab Routine Hyperlipidemia with target LDL less than 70 06/17/2023 12:09 PM EST CBC Lab Routine SOB (shortness of breath) 06/17/2023 12:09 PM EST TSH WITH FREE T4 IF INDICATED Lab Routine SOB (shortness of breath) 06/17/2023 12:09 PM EST MYCODE SST1 Lab Routine [employer] Other*[id number] 06/17/2023 12:09 PM EST MYCODE SST2 Lab Routine [employer] Other*[id number] 06/17/2023 12:09 PM EST Scheduled Procedures Name Priority Associated [...] this encounter Medical Devices Implanted Type Area Cereal Popper Device Identifier Shelf Expiration Date Model / Serial / Lot Mesh 3dmax 3.1x5.3in Rht Med - [id number] Implanted:Qty: 1 on 05/02/2023 by Jean Claude Givens MD at OR [facility] Right: Brittani JAMES BARD : CHAY 03/[birth year]/2027 [id number] / / [id number] documented as of this encounter Visit Diagnoses Diagnosis My[employer] Other*[id number] DM type 2, goal HbA1c < 8% (HCC) Hyperlipidemia with target LDL less than 70 Other and unspecified hyperlipidemia SOB (shortness of breath) Shortness of breath documented in this encounter Advance Directives Latest [...] Discussed due to patient's condition Care Teams Printed Circuit Board Panels Trimmer Relationship Specialty Start Date End Date Sakshi Barros DO [address] [place] [address] [place] [phone] PCP - General Internal Medicine 02/05/16 documented as of this encounter
--- OUTSIDE RECORDS SUMMARY | 2023-10-04 23:13 | External Medical Summary ---
Author Name Unknown Address Unknown Organization [id number]:[facility] - [address] [place] [address] Laboratory Report Ordering Provider Test Date Status JHONATAN ADAMS 06/17/2023 12:09:04 Final Observation Date Value Abnormality Reference (Units ) Status HbA1C 06/17/2023 12:09:04 7.7 Above high normal 4. 0-5.6 (%) Final The use of HbA1c to monitor glycemic status is based on normal hemoglobin and HbA composition. This test should not be used in patients with abnormal hemoglobin that affects the half life of the red blood cell or the in vivo glycation rates. Glucose, estimated average 06/17/2023 12:09:04 174 Above high normal <126 (mg/dL) Pranav brown Performing Location [facility] - [address] [facility] [address]
--- OUTSIDE RECORDS SUMMARY | 2023-10-04 23:13 | External Medical Summary | Summary of Care ---
Author Name Unknown Organization [facility] Address [address] [place] [address] Phone [phone] Care Team Providers Care Environmental Technical Officer Name Role Phone Sakshi Barros Primary Care Provider [phone] Reason for Referral * Precert (Within 10 days (routine)) - Authorized Specialty Diagnoses / Procedures Referred By Contac t Referred To Contact Cardiac Studies Diagnoses ESPINOSA (dyspnea on exertion) SOB (shortness of breath) Procedures ECHO, COMPLETE (2D), TRANS-THORACIC Tito House PA-C [address] [place] [address] Referral ID Status Reason Start Date Expiration Date V isits Requested Visits Authorized [id number] Authorized Precert 06/24/2023 999 999 * Precert (Within 10 days (routine)) - Pending Review Specialty Diagnoses / Procedures Referred By Contac t Referred To Contact Radiology Diagnoses Atherosclerosis of [place]sp[place] coronary artery of [place] heart without angina pectoris ESPINOSA (dyspnea on exertion) SOB (shortness of breath) Procedures NM MYOCARD PERF IMG SPECT MULT STUDIES WITH PHARM INTERV Tito House PA-C [address] [place] [address] Referral ID Status Reason Start Date Expiration Date Visits Requested Visits Authorized [id number] Pending Review Precert 06/17/2023 999 999 Reason for Visit * Reason Comments Follow Up 6 month follow up. N o stamina ongoing for awhile. Chest pain with minor exertion- maybe a lung issue with COPD. SOB no worse then prior. Dizziness when standing or when tired. Denies palpitations and edema. Encounter Details Date Type Department Care Team (Latest Contact Info) Description 06/17/2023 11:30 AM EST Office Visit Cardiology [address] [place] [address] Tito House PA-C [address] [place] [address] Atherosclerosis of re[place]sp[place] coronary artery of [place] heart without angina pectoris*; HTN, goal below 140/90; Hyperlipidemia with target LDL less than 70; Bilateral carotid bruits; ESPINOSA (dyspnea on exertion); SOB (shortness of breath) Allergies No known [...] 05/02/2023 metFORMIN HCl 1000 MG Oral Tablet (Glucophage)Indicat [...] TIMES A DAY 300 Strip 1 3 024 Active Rosuvastatin Calcium 40 MG Oral Tablet (Crestor)Indication s:Hyperlipidemia with target LDL less than 70 TAKE ONE TABLET BY MOUTH EVERY DAY 90 Tablet 3 3 024 Active Additional Information Patient taking differently:40 mg Oral Daily(AM),Indications: cholesterol, Reported on 10/28/2022 Pantoprazole Sodium 40 MG Oral Tablet Delayed Release (Protonix)Indicatio ns:Alberto's esophagus without dysplasia TAKE ONE TABLET BY MOUTH EVERY MORNING AND TAKE ONE TABLET BY MOUTH AT BEDTIME 200 Tablet 3 3 024 Active Additional Information Patient taking differently:40 mg Oral BID (.AM/PM),Indications: stomach, Reported on 10/28/2022 Fluticasone-Salmete rol 250-50 MCG/ACT Inhalation Aerosol Powder Breath Activated (Advair Diskus)Indications: Asthma-COPD overlap syndrome INHALE ONE PUFF BY MOUTH TWICE A DAY-MORNING AND BEFORE BEDTIME. RINSE MOUTH WELL AFTER EACH USE 180 Each 1 3 024 Active Insulin Pen Needle 32G X 4 MMIndications:DM type 2, goal HbA1c < 8% ([facility]) USE ONCE DAILY 100 Each 3 3 024 Active Lantus SoloStar 100 UNIT/ML Subcutaneous Solution Pen-injectorIndicat ions:DM type 2, goal HbA1c < 8% ([facility]) INJECT 15 UNITS UNDER THE SKIN DAILY 15 mL 3 3 024 Active Additional Information Patient taking differently: 15 Units Subcutaneous ONCE, Reported on 04/29/2023 Pramipexole Dihydrochloride 0.25 MG Oral Tablet (Mirapex)Indication s:Restless legs syndrome TAKE ONE TABLET BY MOUTH AT BEDTIME 100 Tablet 3 2 024 Active Sertraline HCl 50 MG Oral Tablet (Zoloft)Indications :Anxiety TAKE 1 TABLET BY MOUTH EVERYDAY AT BEDTIME 90 Tablet 2 3 Active OneTouch Delica Plus [id number] s:Type 2 diabetes mellitus with diabetic neuropathy, [...] AND BEFORE BEDTIME 400 Capsule 1 3 024 Active Tamsulosin HCl 0.4 MG Oral Capsule (Flomax)Indications :BPH without obstruction/lower urinary tract symptoms,Ureteral stone Take 2 Capsules by mouth in the morning. 200 Capsule 3 4 Active Metoprolol Succinate ER 25 MG Oral Tablet Extended Release 24 Hour (toPROL XL)Indications:HTN, goal below 140/90 TAKE ONE-HALF TABLET BY MOUTH IN THE MORNING 45 Tablet 3 4 025 Active Fluorouracil 5 % External Cream (Efudex) Apply thin layer to top of scalp and entire face (except for chin) 2x daily for 3 weeks and then send photos through [facility]/My Chart at end of treatment. 40 g 1 4 Active Potassium Chloride Angélica ER 20 MEQ Oral Tablet Extended Release TAKE ONE TABLET BY MOUTH TWICE A DAY WITH MORNING AND EVENING MEALS 200 Tablet 1 4 025 Active Lisinopril 2.5 MG Oral Tablet (Prinivil) TAKE ONE TABLET BY MOUTH EVERY MORNING 90 Tablet 1 4 024 Discontinued documented as of this encounter [...] Statin History of cholecystectomy 10/15/2021 Atherosclerosis of [place] co ronary artery without angina pectoris 05/29/2021 Last Assessment & Plan: Continue statin, metoprolol, lisinopril Not on aspirin due to GI bleeding Occupational exposure to other air contaminants 11/21/2020 Hypomagnesemia 11/10/2020 Recurrent major depressive disorder, in remissio n 05/22/2020 History of NE (myocardial infarction) 05/22/2020 Primary open-angle glaucoma, left [...] Overview: From Dr. Nuñez. Will recheck through [employer] next time he is seen. Major depressive [...] range 120 to 150. Last hemoglobin A1c 7.57786 continue metformin, Lantus Rectal bleeding 02/05/2016 01/10/2017 Overview: Had EGD/colonoscopy Acute blood loss anemia 02/05/201612/27 HTN, goal below 140/90 02/05/201601/10 Neuropathy 02/05/2016 01/10/2017 AK (actinic keratosis) 01/12/201401/10 Overview: Efudex (Salina Vazquez)- 04/2014 documented as of this encounter (statuses as of 06/17/2023) Immunizations Name Administration Dates Next Due COVID-19 mRNA, LNP-s, No Pre serve, 2-Dose Series (Savedaily) 04/05/2021,07/04/2020,06/13/2020 COVID-19, MRNA-LNP, 23-24, P F, 30 [...] Sign Reading Time Taken Comments Blood Pressure 106/54 06/17/2023 11:23 AM EST Pulse 64 06/17/2023 11:23 AM EST Temperature - - Respiratory Rate 16 06/17/2023 11:23 AM EST Oxygen Saturation - - Inhaled Oxygen Concentration - - Weight 86.4 kg (190 lb 8 oz) 06/17/2023 11:23 AM EST Height - - Body Mass Index 24.45 05/02/2023 6:48 AM EST documented in this encounter Progress Notes * Tito House PA-C - 06/17/2023 11:40 AM EST History of Present Illness: Vahe Resendez is a 78 year old male here today for routine cardiologyfollow-up evaluation. Human Service Specialist Dr. Martinez. Problem List: Minimal coronary atherosclerosis by remote cardiac catheterization, normal stress nuclear imaging in September 2017 and again in December 2020 Normal LV systolic function Hypertension Hyperlipidemia Mild bilateral carotid artery disease No evidence of significant lower extremity peripheral arterial occlusive disease via March 2022 Type 2 diabetes mellitus, insulin dependent, with neuropathy, and restless legs Esophageal carcinoma in Situ, Barretts esophagus status post ablation Chronic back pain, status post remote lumbar laminectomy, lumbar scoliosis, spinal stenosis, degenerative spondylolisthesis, neuropathy Patient presents today noting fatigue, no stamina. He describes episodes of chest discomfort when carrying the coal and taking out the ashes. Notes onset of discomfort at the end of activity, sittingdown, experiencing chest aching, shortness of breath, warm sensation across the chest. Symptoms resolved after about 5 minutes then he is able to go back out and do some more. No resting chest pain. No resting dyspnea. No palpitations. No fluid retention. Notes recent doubling of tamsulosin. Deniesdizziness or syncope. No fevers or chills. Stools are occasionally dark. Chronic back pain/weakness. Frequents Legends, enjoying the food. Patient Active Problem List Diagnosis Code Restless [...] G89.29 No diabetic retinopathy in both eyes [id number] History of GI diverticular bleed Z87.19 Microalbuminuria R80.9 DM type 2, goal HbA1c < 8% ([facility]) 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 J44.89 Primary open-angle glaucoma, left eye, mild stage H40.1121 HTN, goal below 140/90 I10 Recurrent major depressive disorder, in remission ([facility]) F33.40 History of NE (myocardial infarction) I25.2 Hypomagnesemia E83.42 Occupational exposure to other air contaminants Z57.39 Atherosclerosis of [place] coronary artery without angina pectoris I25.10 History of cholecystectomy Z90.49 Diabetic polyneuropathy associated with type 2 diabetes mellitus ([facility]) E11.42 Chronic right shoulder pain M25.511, G89.29 Past Medical History: Diagnosis Date Acute blood loss anemia AK (actinic keratosis) 01/12/2014 Efudex (Salina Vazquez)- 04/2014 Anxiety 02/05/2016 Basal cell carcinoma of nose 07/09/2016 BPH without obstruction/lower urinary tract symptoms 02/05/2016 Heartburn 02/05/2016 Hypertension Mixed hyperlipidemia 02/05/2016 Rectal bleeding 02/05/2016 Had EGD/colonoscopy Restless legs syndrome 02/05/2016 Type 2 diabetes mellitus with hemoglobin A1c goal of less than 7.0% (HCC) 02/05/2016 Past Surgical History: Procedure Laterality Date ABD/PELVIS CT W/O IV AND W/O PO CONTRAST 01/04/2016 [facility]-showed multiple calculi ARTHROPLASTY KNEE TOTAL 2013 Right COLONOSCOPY 01/19/2016 [facility] [place] COLONOSCOPY, DIAGNOSTIC (RECTUM) 02/17/2018 diverticulosis, repeat 10 yrs/COLONOSCOPY FLEXIBLE PROXIMAL DIAGNOSTIC performed by Julien Conway DO at ENDOSCOPY [facility] COLONOSCOPY, DIAGNOSTIC (RECTUM) 01/30/2022 diverticulosis in entire colon, internal hemorrhoids / no specimens collected / COLONOSCOPY FLEXIBLE PROXIMAL DIAGNOSTIC performed by Phillip Shore MD at ENDOSCOPY [facility] COLONOSCOPY, DIAGNOSTIC (RECTUM) 01/19/2021 diverticulosis / INPT [facility] EGD, FLEXIBLE, DIAGNOSTIC N/A 07/22/2017 ESOPHAGOGASTRODUODENOSCOPY (EGD), FLEXIBLE, TRANSORAL, DIAGNOSTIC performed by Khoa Mejia MD atENDOSCOPY [facility] EGD, FLEXIBLE, DIAGNOSTIC N/A 10/22/2017 ESOPHAGOGASTRODUODENOSCOPY (EGD), FLEXIBLE, TRANSORAL, DIAGNOSTIC performed by Khoa Mejia MD atENDOSCOPY [facility] EGD, FLEXIBLE, DIAGNOSTIC N/A 10/13/2018 mild inflammatory changes, hiatal hernia, repeat 1 yr/ESOPHAGOGASTRODUODENOSCOPY (EGD), FLEXIBLE, TRANSORAL, DIAGNOSTIC performed by Julien Conway DO at ENDOSCOPY [facility] EGD, FLEXIBLE, DIAGNOSTIC 12/20/2019 inflammatory changes on bx, repeat 1.5 yrs / ESOPHAGOGASTRODUODENOSCOPY (EGD), FLEXIBLE, TRANSORAL,DIAGNOSTIC performed by Julien Conway DO at ENDOSCOPY [facility] EGD, FLEXIBLE, DIAGNOSTIC 09/05/2021 z-line irregular at 41 cm from insciors, gastritis / biopsies from the esophagus showed mild inflammation ESOPHAGOGASTRODUODENOSCOPY (EGD), FLEXIBLE, TRANSORAL, DIAGNOSTIC performed by Julien Conway DO at [facility] EGD, FLEXIBLE, DIAGNOSTIC 01/30/2022 HH, z-line irregular / biopsies shows mild to moderate inflammation / ESOPHAGOGASTRODUODENOSCOPY (EGD), FLEXIBLE, TRANSORAL, DIAGNOSTIC performed by Phillip Shore MD at ENDOSCOPY [facility] EGD, FLEXIBLE, DIAGNOSTIC 03/04/2023 biopsies normal/recall 1 year/ESOPHAGOGASTRODUODENOSCOPY (EGD), FLEXIBLE, TRANSORAL, DIAGNOSTIC performed by Hayder Vargas MD at ENDOSCOPY [facility] EGD, FLEXIBLE, W/BIOPSY 01/19/2016 [facility] [place] EGD, W/ENDOSCOPIC US 05/26/2017 Barretts / ESOPHAGOGASTRODUODENOSCOPY (EGD), FLEXIBLE, TRANSORAL, ENDOSCOPIC ULTRASOUND performed by Julien Conway DO at ENDOSCOPY [facility] EGD, W/ENDOSCOPIC US N/A 02/19/2022 dilation CBD/multiple stones CBD/ESOPHAGOGASTRODUODENOSCOPY (EGD), FLEXIBLE, TRANSORAL, ENDOSCOPIC ULTRASOUND performed by Julien Conway DO at OR [facility] ERCP, DIAGNOSTIC, SPECIMEN COLLECTION N/A 02/19/2022 benign biliary papillary stenosis/stone and sludge/choledocholithiasis, complete removal/ENDOSCOPICRETROGRADE CHOLANGIOPANCREATOGRAPHY (ERCP) DIAGNOSTIC performed by Julien Conway DO at OR [facility] INCISION OF EYE Unsure which eye-Metal removed and needed suture per patient INJECT DX/THER SUBSTANCE INTERLAMINAR LUMBAR/SACRAL W IMAGE GUIDE 05/01/2022 INJECTION SPINE LUMBAR OR SACRAL performed by Ezequiel Portillo DO at [facility] INJECT DX/THER SUBSTANCE INTERLAMINAR LUMBAR/SACRAL W IMAGE GUIDE 10/23/2022 INJECTION SPINE LUMBAR OR SACRAL performed by Ezequiel Portillo DO at [facility] LAPAROSCOPY; CHOLECYSTECTOMY 10/07/2021 done through ED at [facility] by Dr Jean Claude Givens LAPAROSCOPY; REPAIR INITIAL INGUINAL HERNIA Right 05/02/2023 LAPAROSCOPIC REPAIR INGUINAL HERNIA INITIAL performed by Jean Claude Givens MD at OR [facility] LASERING OF SECONDARY CATARACT LUMBAR SPINE FUSION, POST INTERBODY 1990 Discectomy MISCELLANEOUS ORDER ([facility] ONLY) Left 02/01/2019 excision LLL lesion and biopsy, Dr. Wilson [place] RMVL LUNG OTHER THAN PNEUMONECTOMY 1 LOBE LOBECT Left 04/24/2022 Post Mohs repair OS, Dr. Wilson RECONSTRUCT/REPLACE SHOULDER JOINT 1997, 2012 Bilateral shoulders REMOVAL OF TONSILS, UNDER AGE 13 REMOVE CATARACT, INSERT LENS PROSTH Bilateral [place] Family History Problem Relation Age of Onset Heart Disorder Mother 68 Heart Disorder Father 68 Cancer Sister Cancer Brother Glaucoma None Social History Socioeconomic History Marital status: Spouse name: Not on file Number of children: Not on file Years of education: Not on file Highest education level: Not on file Occupational History Not on file Tobacco Use Smoking status: Former Current packs/day: 0.00 Average packs/day: 2.0 packs/day for 32.0 years (64.0 ttl pk-yrs) Types: Cigarettes Start date: 11/26/1957 Quit date: 11/26/1989 Years since quittin.5 Smokeless tobacco: Never Vaping Use Vaping Use: Never used Substance and Sexual Activity Alcohol use: Yes Comment: occ. 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 Social Determinants of Health Financial Resource Strain: Not on file Food Insecurity: No Food Insecurity (05/19/2019) Hunger Vital Sign Worried About Running Out of Food in the Last Year: Never true Ran Out of Food in the Last Year: Never true Transportation Needs: Not on file Physical Activity: Not on file Stress: Not on file Social Connections: Not on file Intimate Partner Violence: Not on file Housing Stability: Not on file Complete Review of Systems is as stated above, negative, or noncontributory. Review of patient's allergies indicates: No Known Allergies Current Outpatient Medications Medication Sig Dispense Refill M-VIT PO TABS one a day VITAMIN B 12 100 MCG PO LOZG one a day acetaminophen (TYLENOL) 325 MG Tablet Take 2 Tablets by mouth every 6 hours as needed for Pain. Magnesium Oxide 400 (240 Mg) MG Oral Tablet Take 1 Tablet by mouth in the morning. metFORMIN HCl 1000 MG Oral Tablet (Glucophage) [...] under the skin once.) 15 mL 3 Pramipexole Dihydrochloride 0.25 MG Oral Tablet (Mirapex) TAKE ONE TABLET BY MOUTH AT BEDTIME 100 Tablet 3 Sertraline HCl 50 MG Oral Tablet (Zoloft) TAKE 1 TABLET BY MOUTH EVERYDAY AT BEDTIME 90 Tablet 2 OneTouch Delica Plus [id number] Test up to four times daily 400 [...] mouth in the morning. 200 Capsule 3 Lisinopril 2.5 MG Oral Tablet (Prinivil) TAKE ONE TABLET BY MOUTH EVERY MORNING 90 Tablet 1 Metoprolol Succinate ER 25 MG Oral Tablet Extended Release 24 Hour (toPROL XL) TAKE ONE-HALF TABLETBY MOUTH IN THE MORNING 45 Tablet 3 Fluorouracil 5 % External Cream (Efudex) Apply thin layer to top of scalp and entire face (except for chin) 2x daily for 3 weeks and then send photos through My [employer]/My Chart at end of treatment. 40 g 1 Potassium Chloride Angélica ER 20 MEQ Oral Tablet Extended Release TAKE ONE TABLET BY MOUTH TWICE A DAYWITH MORNING AND EVENING MEALS 200 Tablet 1 Amoxicillin 500 MG Oral Capsule (Amoxil) TAKE 4 CAPSULES BY MOUTH 1 HOUR PRIOR TO APPOINTMENT (Patient not taking: Reported on 05/02/2023) 4 Capsule 1 traMADol HCl 50 MG Oral Tablet (Ultram) Take 1 Tablet by mouth every 6 hours as needed for severe pain. 60 Tablet 0 No current facility-administered medications for this visit. OBJECTIVE/PHYSICAL EXAMINATION: BP 106/54 | Pulse 64 | Resp 16 | Wt 86.4 kg (190 lb 8 oz) | BMI 24.45 kg/m | BSA 2.12 m Blood pressure my evaluation was 98/52 General: Alert, no distress, comfortable and cooperative. Hard of hearing. Skin: No rash. Eyes: PER. Conjunctiva pink, sclera clear. HENT: Normocephalic. Atraumatic. Neck: Bilateral carotid bruits. No JVD. Heart: RRR. Soft systolic murmur. PMI is nondisplaced. Lungs: Diminished. Decreased. Clear. Abdomen: +BS. Soft. Nontender. No masses. No organomegaly. Extremities: No clubbing, cyanosis, or edema. Pulses: radial=2/4, posterior tibial=2/4 on the left, 1/4 on the right. Limited neurological examination: No focal deficit. Data: Echo from January 02, 2021 reviewed. Nuclear stress test from January 09, 2021 reviewed. LDL cholesterol 55 mg/dL on June 12, 2022. EKG on June 17, 2023: Normal sinus rhythm at 66 bpm. Possible old septal infarct. QTc 379 ms. When compared to prior tracings, there was no significant change. IMPRESSION: 78-year-old male presenting today in routine follow-up with suspicious chest discomfortas detailed above. Options of management discussed. Via shared decision-making, we will proceed as follows: RECOMMENDATIONS/PLAN: Hold lisinopril given observed hypotension Increase free water intake Laboratory work today, CBC, CMP, TSH, LDL cholesterol PA and lateral chest x-ray today, RE: SOB/ESPINOSA Refer for resting echocardiography Refer for Lexiscan nuclear stress test Continue ASA 81 mg/day and high-intensity statin therapy (rosuvastatin 40 mg/day) and low dose beta-cesario therapy Cardiology follow-up with the above, routinely in 6 months, or as needed. ER with emergencies. Tito House PA-C Department of Cardiology I spent a total of 30-39 minutes (exact time 36 mins) on the date of service in preparation, delivery, and documentation of the care provided to Vahe Resendez excluding any time spent in the performance of separately billed services. This visit involved medical care services related to at least one serious condition or complex condition requiring ongoing care. This chart was completed in part ut [employer] Voice Recognition Software. Grammatical errors, random word insertions, prounoun errors, and incomplete sentences are an occasional consequence of this system due to software limitations, ambient noise, and hardware issues. Any formal questions or concerns about the content, text, or information contained within the body of this dictation should be directly addressed to theprovider for clarification. documented in this encounter Procedure Notes * Wilfredo Martinez MD - 06/17/2023 11:25 AM ESTAssociated Order(s): EKG REASON FOR STUDY: HTN CONCLUSIONS: Normal sinus rhythm Septal infarct (cited on or before 16-AUG-2022) Abnormal ECG When compared with ECG of 16-AUG-2022 14:13, No significant change was found Ventricular Rate: 66 Atrial Rate: 66 LA Interval: 186 QRS Duration: 76 QT/QTc: 362/379 ms P-R-T [place]: 51 : 41 : 71 degrees documented in this encounter Nursing Notes * Dwight Sol LPN - 06/17/2023 11:22 AM EST Patient identified by full name and date of Chief Complaint Patient presents with Follow Up 6 month follow up. No stamina ongoing for awhile. Chest pain with minor exertion- maybe a lung issue with COPD. SOB no worse then prior. Dizziness when standing or when tired. Denies palpitations andedema. Examination Room: 3 Name: Vahe Resendez Date of : (1945). Reason for Visit: 6 month follow up Interim Hospitalization(s): Denies Problems/Concerns: See chief complaint Chest Pain/SOB: See chief complaint [facility] Discussed: Yes [facility] is a way you can talk to your provider online through e-mail. Would you like to sign up? I can activate it for you? ALREADY ACTIVE Patient was instructed to not get up on the exam table until directed and assisted by their provider; patient is to remain seated in the chair/ wheelchair/ exam table for fall prevention and safety reasons. Patient is aware to have assistance to step down off exam table with personnel. Patient voiced full comprehension of instructions. documented in this encounter Plan of Treatment Upcoming Encounters Date Type Department Care Team (Late st Contact Info) Description 06/23/2023 2:00 PM EST Office Visit Dermatology [address] [place] [address] Charline Hurst PA-C [address] [place] [address] [place] [address] 07/09/2023 10:30 AM EDT Office Visit Family Medicine [address] [place] [phone] Sakshi Barros [address] [place] [address] 07/21/2023 11:00 AM EDT Office Visit Interventional Pain Center, [facility] [address] [place] [address] Saige Preston PA-C [address] [place] [address] 08/26/2023 7:15 AM EDT Cardiac Studies Cardiac Studies, [facility] [address] [place] [address] 08/26/2023 8:15 AM EDT Imaging [facility] 2nd Floor Cardiology, [place] [address] Gw, Excess Time Radiology [address] [place] [address] 08/29/2023 9:40 AM EDT Office Visit Podiatry [facility] [address] [place] [address] Melinda Stallworth, DPM [address] [facility] [place] [address] 06/16/2024 10:20 AM EST Office Visit Dermatology [address] [place] [address] Charline Hurst PA-C [address] [place] [address] [place] [address] Pending Results Name Type Priority Associated Diagnoses Date/Time XR CHEST 2 VIEWS Medical Imaging Routine ESPINOSA (dyspnea on exertion) 06/17/2023 12:18 PM EST LDL CHOLESTEROL (DIRECT MEASURE) Lab Routine Hyperlipidemia with target LDL less than 70 06/17/2023 12:09 PM EST COMPREHENSIVE METABOLIC PANEL Lab Routine Hyperlipidemia with target LDL less than 70 06/17/2023 12:09 PM EST CBC Lab Routine SOB (shortness of breath) 06/17/2023 12:09 PM EST TSH WITH FREE T4 IF INDICATED Lab Routine SOB (shortness of breath) 06/17/2023 12:09 PM EST Scheduled Orders Name Type Priority Associated Diagnoses Orde r Schedule LDL CHOLESTEROL (DIRECT MEASURE) Lab Routine Hyperlipidemia with target LDL less than 70 Expected: 06/17/2023, Expires: 06/17/2024 COMPREHENSIVE METABOLIC PANEL Lab Routine Hyperlipidemia with target LDL less than 70 Expected: 06/17/2023, Expires: 06/17/2024 CBC Lab Routine SOB (shortness of breath) Expected: 06/17/2023, Expires: 06/17/2024 TSH WITH FREE T4 IF INDICATED Lab Routine SOB (shortness of breath) Expected: 06/17/2023, Expires: 06/17/2024 NM MYOCARD PERF IMG SPECT MULT STUDIES WITH PHARM INTERV Cardiology Routine Atherosclerosis of [place] coronary artery of [place] heart without angina pectoris ESPINOSA (dyspnea on exertion) SOB (shortness of breath) Expected: 06/17/2023 (Approximate), Expires: 07/15/2024 ECHO, COMPLETE (2D), TRANS-THORACIC Echocardiology Routine ESPINOSA (dyspnea on exertion) SOB (shortness of breath) Expected: 06/24/2023, Expires: 12/16/2023 Scheduled Procedures Name Priority Associated Diagnoses Date/Ti [...] this encounter Medical Devices Implanted Type Area Geochemistry Teacher Device Identifier Shelf Expiration Date Model / Serial / Lot Mesh 3dmax 3.1x5.3in Rht Med - [id number] Implanted:Qty: 1 on 05/02/2023 by Jean Claude Givens MD at OR [facility] Right: Groin CR BARD : DAVOL 03/25/2027 [id number] / / [id number] documented as of this encounter Procedures Procedure Name Priority Date/Time Associated Diagnosis Comments LA ECG ROUTINE ECG W/LEAST 12 LDS I&R ONLY Routine 06/17/2023 11:25 AM EST HTN, goal below 140/90 documented in this encounter Results * EKG (06/17/2023 11:25 AM EST) 06/17/2023 11:2 5 AM EST Narrative Procedure Note Wilfredo Martinez MD - 06/17/2023 11:25 AM EST REASON FOR STUDY: HTN CONCLUSIONS: Normal sinus rhythm Septal infarct (cited on or before 16-AUG-2022) Abnormal ECG When compared with ECG of 16-AUG-2022 14:13, No significant change was found Ventricular Rate: 66 Atrial Rate: 66 LA Interval: 186 QRS Duration: 76 QT/QTc: 362/379 ms P-R-T [place]: 51 : 41 : 71 degrees Tito House PA-C [facility] documented in this encounter Visit Diagnoses Diagnosis Atherosclerosis of [place] coronary artery of [place] heart without angina pectoris- Primary HTN, goal below 140/90 Unspecified essential hypertension Hyperlipidemia with target LDL less than 70 Other and unspecified hyperlipidemia Bilateral carotid bruits ESPINOSA (dyspnea on exertion) Other dyspnea and respiratory abnormality SOB (shortness of breath) Shortness of breath [...] Discussed due to patient's condition Care Teams Environmental Technical Officer Relationship Specialty Start Date End Date Sakshi Barros DO [address] [place] [address] [place] [address] PCP - General Internal Medicine 02/05/16 documented as of this encounter
--- OUTSIDE RECORDS SUMMARY | 2023-10-04 23:13 | External Medical Summary | Summary of Care ---
Author Name Unknown Organization [facility] Address [address] [facility] [place] [address] Phone [phone] Care Team Providers Care Public Speaking Instructor Name Role Phone Sakshi Barros DO Primary Care Provider [phone] Reason for Visit * Reason Onset Date Comments Test Results 06/18/2023 Encounter Details Date Type Department Care Team (Late st Contact Info) Description 06/18/2023 Telephone Cardiology, [facility] [address] [place] [address] Tito House PA-C [address] [facility] [place] [address] Test Results Allergies No known active allergiesdocumented [...] MMIndications:DM type 2, goal HbA1c < 8% ([facility]) USE ONCE DAILY 100 Each 3 08/21/2022 4 Active Lantus SoloStar 100 UNIT/ML Subcutaneous Solution Pen-injectorIndicati ons:DM type 2, goal HbA1c < 8% ([facility]) INJECT 15 UNITS UNDER THE [...] Tablet 2 11/16/2022 Active OneTouch Delica Plus [id number] :Type 2 diabetes mellitus with diabetic neuropathy, [...] weeks and then send photos through My [facility]/My Chart at end of treatment. 40 g [...] Statin History of cholecystectomy 10/15/2021 Atherosclerosis of [place] co ronary artery without angina pectoris 05/29/2021 Last Assessment & Plan: Continue statin, metoprolol, lisinopril Not on aspirin due to GI bleeding Occupational exposure to other air contaminants 11/21/2020 Hypomagnesemia 11/10/2020 Recurrent major depressive disorder, in rem[facility] beds [facility] n 05/22/2020 History of SC (myocardial infarction) [...] Overview: From Dr. Nuñez. Will recheck through Tuan800er next time he is seen. Major depressive [...] range 120 to 150. Last hemoglobin A1c 7.79521 continue metformin, Lantus Rectal bleeding 02/05/2016 01/10/2017 Overview: Had EGD/colonoscopy Acute blood loss anemia 02/05/201612/27 HTN, goal below 140/90 02/05/201601/10 Neuropathy 02/05/2016 01/10/2017 AK (actinic keratosis) 01/12/201401/10 Overview: Efudex (Salina Vazquez)- 04/2014 documented as of this encounter (statuses as of 06/18/2023) Immunizations Name Administration Dates Next Due COVID-19 mRNA, LNP-s, No Pre serve, 2-Dose Series ([employer]) 04/05/2021,07/04/2020,06/13/2020 COVID-19, MRNA-LNP, 23-24, P F, 30 MCG/0.3 mL, 12 YRS AND ABOVE, IM ([employer]-Comirnaty) 02/24/2023 Pneumococcal Conjugate Vacc, 13 Valent (Prevnar) [...] Telephone Encounter - Ynes Astorga CMA - 06/18/2023 12:34 PM EST Spoke with pt. Pt aware of results and recommendations. Order placed for lab on Friday. * Telephone Encounter - Ynes Astorga CMA - 06/18/2023 12:34 PM EST ----- Message from Tito House PA-C sent at 06/18/2023 7:00 AM EST ----- Potassium is elevated at 5.6 mmol/L. Patient is currently taking potassium chloride 20 mEq twice per day. Hold potassium chloride x3 days then resume at the reduced dose of 20 mEq once per day. Repeat potassium level on Friday documented in this encounter Plan of Treatment Upcoming Encounters Date Type Department Care Team (Late st Contact Info) Description 06/23/2023 2:00 PM EST Office Visit Dermatology [address] [place] [address] Charline Hurst PA-C [address] [place] [address] [place] [address] 07/09/2023 10:30 AM EDT Office Visit Family Medicine [address] [place] [phone] Sakshi Barros [address] [place] [address] 07/21/2023 11:00 AM EDT Office Visit Interventional Pain Center, [facility] [address] [place] [address] Saige Preston PA-C [address] [place] [address] 08/26/2023 7:15 AM EDT Cardiac Studies Cardiac Studies, [facility] Nikita Poegail [place] [address] 08/26/2023 8:15 AM EDT Imaging [facility] 2nd Floor Cardiology, [place] [facility] [place] [address] Gw, Excess Time Radiology [address] [place] [address] 08/29/2023 9:40 AM EDT Office Visit Podiatry [facility] [address] [place] [address] Melinda Stallworth, MABEL [address] [facility] [place] [address] 06/16/2024 10:20 AM EST Office Visit Dermatology [address] [place] [address] Charline Hurst PA-C [address] [place] [address] [place] [address] Scheduled Orders Name Type Priority Associated Diagnoses Orde r Schedule POTASSIUM Lab Routine HTN, goal below 140/90 Hypomagnesemia Hyperlipidemia with target LDL less than 70 Diabetic polyneuropathy associated with type 2 diabetes mellitus (HCC) Microalbuminuria AK (actinic keratosis) Expected: 06/23/2023, Expires: 06/18/2024 Scheduled Procedures Name Priority Associated Diagnoses Date/Ti [...] this encounter Medical Devices Implanted Type Area Driller Multiple Spindle Device Identifier Shelf Expiration Date Model / Serial / Lot Mesh 3dmax 3.1x5.3in t Med - [id number] Implanted:Qty: 1 on 05/02/2023 by Jean Claude Givens MD at OR [facility] Right: Groin CR BARD : DAVOL 03/25/2027 [id number] / / [id number] documented as of this encounter Visit Diagnoses [...] Discussed due to patient's condition Care Teams Public Speaking Instructor Relationship Specialty Start Date End Date Sakshi Barros DO [address] [place] [address] [place] [phone] PCP - General Internal Medicine 02/05/16 documented as of this encounter
--- OUTSIDE RECORDS SUMMARY | 2023-10-04 23:13 | External Medical Summary ---
Author Name Unknown Address Unknown Organization [id number]:[facility] [place] - [address] [place] [address] Laboratory Report Ordering Provider Test Date Status OSEI GUTIÉRREZ 06/17/2023 12:09:04 Final Observation Date Value Abnormality Reference (Units ) Status TSH 06/17/2023 12:09:04 3.91 0.27-4.20 (uIU/mL) Final Performing Location LABORATORY C - [address] [place] [address]
--- OUTSIDE RECORDS SUMMARY | 2023-10-04 23:13 | External Medical Summary ---
Author Name Unknown Address Unknown Organization [id number]:[facility] [place] [address] [place] [address] Laboratory Report Ordering Provider Test Date Status GIORGI HAND 06/17/2023 12:09:04 Final Observation Date Value Abnormality Reference (Units ) Status MYCODE SPECIMEN-SST 06/17/2023 12:09:04 Freezing of extracted DNA, whole blood and/or serum. Final Performing Location LABORATORY C - [address] [place] [address]
--- OUTSIDE RECORDS SUMMARY | 2023-10-04 23:13 | External Medical Summary | Summary of Care ---
Author Name Unknown Organization [facility] Address [address] [facility] [place] [address] Phone [phone] Care Team Providers Care Textile Stylist Name Role Phone Sakshi Barros Primary Care Provider [phone] Reason for Visit * Reason Onset Date Comments Test Results Biopsy 06/09/2023 Encounter Details Date Type Department Care Team (Late st Contact Info) Description 06/09/2023 Telephone [address] [place] [address] Charline Hurst PA-C [address] [place] [address] [place] [address] Test Results Biopsy Allergies No known active allergiesdocumented as of this encounter (statuses as of 06/11/2023) Medications Medication Sig Dispensed Refills Start Date [...] long-term current use of insulin ([facility]) USE UP TO 3 TIMES A DAY [...] 2, goal HbA1c < 8% ([facility]) USE ONCE DAILY 100 Each 3 3 08/21/19 24 Active Lantus SoloStar 100 UNIT/ML Subcutaneous Solution Pen-injectorIndicati ons:DM type 2, goal HbA1c < 8% ([facility]) INJECT 15 UNITS UNDER THE SKIN DAILY [...] Tablet 2 3 Active OneTouch Delica Plus [id number] :Type 2 diabetes mellitus with diabetic neuropathy, [...] weeks and then send photos through My [facility]/My Chart at end of treatment. 40 g 1 4 Active Potassium Chloride Angélica ER 20 MEQ Oral Tablet Extended Release TAKE ONE TABLET BY MOUTH TWICE A DAY WITH MORNING AND EVENING MEALS 200 Tablet 1 3 06/11/19 24 Discontinu ed(Refill) documented as of this encounter (statuses as of 06/11/2023) Active Problems Problem Noted Date Diagnosed Date [...] Statin History of cholecystectomy 10/15/2021 Atherosclerosis of [place] co ronary artery without angina pectoris 05/29/2021 Last Assessment & Plan: Continue statin, metoprolol, lisinopril Not on aspirin due to GI bleeding Occupational exposure to other air contaminants 11/21/2020 Hypomagnesemia 11/10/2020 Recurrent major depressive disorder, in [facility] 05/22/2020 History of SC (myocardial infarction) [...] as of this encounter (statuses as of 06/11/2023) Resolved Problems Problem Noted Date Diagnosed Date [...] range 120 to 150. Last hemoglobin A1c 7.65192 continue metformin, Lantus Rectal bleeding 02/05/2016 01/10/2017 Overview: Had EGD/colonoscopy Acute blood loss anemia 02/05/201612/27 HTN, goal below 140/90 02/05/201601/10 Neuropathy 02/05/2016 01/10/2017 AK (actinic keratosis) 01/12/201401/10 Overview: Efudex (Salina Vazquez)- 04/2014 documented as of this encounter (statuses as of 06/11/2023) Immunizations Name Administration Dates Next Due COVID-19 mRNA, LNP-s, No Pre serve, 2-Dose Series ([employer]) 04/05/2021,07/04/2020,06/13/2020 COVID-19, MRNA-LNP, 23-24, P F, 30 [...] encounter Miscellaneous Notes * Telephone Encounter - Charline Hurst PA-C - 06/11/2023 4:06 PM EST Spoke to pt regarding bx result. At least SCCIS, would like to reshave the lesion in the office andsee if it needs Mohs. Pt is aware he will be called to schedule the appt in [facility]. Charline Hurst S, DORIS A. Skin, R lateral cheek, shave: [...] see if it needs Mohs. Char[facility] Hurst [facility]. Skin, R lateral cheek, shave: Squamous [...] 06/17/2023 11:30 AM EST Office Visit Cardiology [address] [place] [address] Tito House PA-C [address] [facility] [place] [address] 07/09/2023 10:30 AM EDT Office Visit Family Medicine [address] [place] [phone] Barros, Sakshi De Leon[address] [place] [address] 07/21/2023 11:00 AM EDT Office Visit Interventional Pain Center, [facility] [address] [facility] [place] [address] Saige Preston PA-C [address] [place] [address] 08/29/2023 9:40 AM EDT Office Visit [facility]iatry [facility] [place] [address] Melinda Stallworth, DPGermán [address] [facility] [place] [address] 06/16/2024 10:20 AM EST Office Visit Dermatology [address] [place] [address] Charline Hurst PA-C [address] [place] [address] [place] [address] Scheduled Procedures Name Priority Associated Diagnoses Date/Ti [...] this encounter Medical Devices Implanted Type Area Rn Review Device Identifier Shelf Expiration Date Model / Serial / Lot Mesh 3dmax 3.1x5.3in t Med - [id number] Implanted:Qty: 1 on 05/02/2023 by Jean Claude Givens MD at OR [facility] Right: Groin CR BARD : DAVOL 03/25/2027 [id number] / / [id number] documented as of this encounter Advance Directives [...] Discussed due to patient's condition Care Teams Textile Stylist Relationship Specialty Start Date End Date Sakshi Barros DO [address] [place] [address] [place] [address] PCP - General Internal Medicine 02/05/16 documented as of this encounter
--- OUTSIDE RECORDS SUMMARY | 2023-10-04 23:13 | External Medical Summary | Summary of Care ---
Author Name Unknown Organization [facility] Address [address] [facility] [place] [address] Phone [phone] Care Team Providers Care Enamel Finisher Name Role Phone Sakshi Barros Primary Care Provider [phone] Reason for Visit * Reason Onset Date Comments Test Results Biopsy 06/09/2023 Encounter Details Date Type Department Care Team (Late st Contact Info) Description 06/09/2023 Telephone Derm[address] [place] [address] Charline Hurst PA-C [address] [place] [address] [place] [address] Test Results Biopsy Allergies No known active [...] Tablet 2 3 Active OneTouch Delica Plus [id number] :Type 2 diabetes mellitus with diabetic neuropathy, [...] weeks and then send photos through My [employer]/My Chart at end of treatment. 40 g [...] 11/10/2020 Recurrent major depressive disorder, in [facility] n 05/22/2020 History of AK [...] range 120 to 150. Last hemoglobin A1c 7.89882 continue metformin, Lantus Rectal bleeding 02/05/2016 01/10/2017 Overview: Had EGD/colonoscopy Acute blood loss anemia 02/05/201612/27 HTN, goal below 140/90 02/05/201601/10 Neuropathy 02/05/2016 01/10/2017 AK (actinic keratosis) 01/12/201401/10 Overview: Efudex (Salina Vazquez)- 04/2014 documented as of this encounter (statuses as of 06/11/2023) Immunizations Name Administration Dates Next Due COVID-19 mRNA, LNP-s, No Pre serve, 2-Dose Series ([employer]) 04/05/2021,07/04/2020,06/13/2020 COVID-19, MRNA-LNP, 23-24, P F, 30 [...] encounter Miscellaneous Notes * Telephone Encounter - Lynne Hermosillo RN [...] (screening) andcell phone went right to generic voiceakil. At least SCCIS, would like to reshave the lesion in theoffice and see if it needs Mohs. Charline Hurst S, PAKiki A. Skin, R lateral cheek, shave: Squamous [...] 06/17/2023 11:30 AM EST Office Visit Cardiology [address] [place] [address] Tito House, DORSI [address] [place] [address] 07/09/2023 10:30 AM EDT Office Visit Family Medicine [address] [place] [phone] Sakshi [address]ros[address] [place] [address] 07/21/2023 11:00 AM EDT Office Visit Interventional Pain Center, [facility] [address] [place] [address] Saige Preston PA-C [address] [place] [address] 08/29/2023 9:40 AM EDT Office Visit Podiatry [facility] [address] [place] [address] Melinda Stallworth, DPGermán [address] [place] [address] [place] [address] 06/16/2024 10:20 AM EST Office Visit Dermatology [address] [place] [address] Charline Hurst PA-C [address] [place] [address] [place] [address] Scheduled Procedures Name Priority Associated Diagnoses Date/Ti [...] Completed 08/08/2017, 01/19/2016 Zoster Vaccines Completed 01/14/2019, 0 04/2018, 11/12/2018 COVID-19 Vaccine Completed 02/24/2023, , 04/05/2021, Additional history exists Influenza Vaccine (FLU shot) Completed , 02/15/2022, 01/31/2021, Additional history exists GARDASIL-HPV IMMUNIZATION SERIES Aged Out No longer eligible based on patient's age to complete this topic MENINGOCOCCAL (MENACTRA/MENVEO) Aged Out No longer eligible based on patient's age to complete this topic documented as of this encounter Medical Devices Implanted Type Area Transfer Station Attendant Device Identifier Shelf Expiration Date Model / Serial / Lot Mesh 3dmax 3.1x5.3in t Med - [id number] Implanted:Qty: 1 on 05/02/2023 by Jean Claude Givens MD at OR [facility] Right: Groin CR BARD : DAVOL 03/25/2027 [id number] / / [id number] documented as of this encounter Advance Directives [...] Discussed due to patient's condition Care Teams Enamel Finisher Relationship Specialty Start Date End Date Sakshi Barros DO [address] [place] [address] [place] [address] PCP - General Internal Medicine 02/05/16 documented as of this encounter
--- OUTSIDE RECORDS SUMMARY | 2023-10-04 23:13 | External Medical Summary ---
Author Name Unknown Address Unknown Organization K01:[facility] [place] [address] [facility] [address] [facility] [address] Laboratory Report Ordering Provider Test Date Status OSEI GUTIÉRREZ 06/17/2023 12:09:04 Final Observation Date Value Abnormality Reference (Units ) Status WBC, Total 06/17/2023 12:09:04 9.39 4.00-10.80 (K/uL) Final RBC 06/17/2023 12:09:04 4.70 4.50-5.25 (M/uL) Final Hemoglobin 06/17/2023 12:09:04 15.2 14.0-16.8 (g/dL) Final HCT 06/17/2023 12:09:04 45.8 40.0-48.4 (%) Final MCV 06/17/2023 12:09:04 97.4 82.0-99.5 (fL) Final MCH 06/17/2023 12:09:04 32.3 27.0-34.0 (pg) Final MCHC 06/17/2023 12:09:04 33.2 32.0-36.0 (g/dL) Final RDW 06/17/2023 12:09:04 14.0 11.5-15.5 (%) Final Platelets 06/17/2023 12:09:04 178 140-400 (K/uL) Final MPV 06/17/2023 12:09:04 10.5 6.6-11.1 (fL) Final Nucleated erythrocytes/100 leukocytes [Ratio] in Blood by Automated count 06/17/2023 12:09:04 0 <=0 (/100 WBCs) Final Performing Location [facility] [place] [place] [address] [place] [address]
--- OUTSIDE RECORDS SUMMARY | 2023-10-04 23:14 | External Medical Summary | Summary of Care ---
Author Name Unknown Organization [facility] Address [address] [place] [address] Phone [phone] Care Team Providers Care Entry Level Business Analyst Name Role Phone Sakshi Barros Primary Care Provider [phone] Reason for Visit * Reason Comments Follow Up Nail trimming Encounter Details Date Type Department Care Team (Late st Contact Info) Description 05/30/2023 10:40 AM EST Office Visit Podiatry [facility] [address] [facility] [place] [address] Melinda Stallworth, MABEL [facility] [address] Type 2 diabetes mellitus with diabetic neuropathy, without long-term current use of insulin ([facility])*; Pre-ulcerative calluses; Encounter for other procedures for purposes other than remedying health state Allergies No known active allergiesdocumented as of this encounter (statuses as of 05/30/2023) Medications Medication Sig Dispensed Refills Start Date [...] DAY E11.9 300 Strip 1 10/07/2022 Active Potassium Chloride Angélica ER 20 MEQ Oral Tablet Extended Release TAKE ONE TABLET BY MOUTH TWICE A DAY WITH MORNING AND EVENING MEALS 200 Tablet 1 10/14/2022 4 Active Glucose Blood In Vitro Strip USE [...] 2, goal HbA1c < 8% ([facility]) USE ONCE DAILY 100 Each 3 08/21/2022 4 Active Lantus SoloStar 100 UNIT/ML Subcutaneous Solution Pen-injectorIndicati ons:DM type 2, goal HbA1c < 8% ([facility]) INJECT 15 UNITS UNDER THE SKIN DAILY [...] Tablet 2 11/16/2022 Active OneTouch Delica Plus [id number] :Type 2 diabetes mellitus with diabetic neuropathy, without long-term current use of insulin ([facility]) Test up to four times daily 400 [...] MORNING 45 Tablet 3 05/29/2023 5 Active documented as of this encounter (statuses as of 05/30/2023) Active Problems Problem Noted Date Diagnosed Date [...] Statin History of cholecystectomy 10/15/2021 Atherosclerosis of tolowa dee-ni' co ronary artery without angina pectoris 05/29/2021 Last Assessment & Plan: Continue statin, metoprolol, lisinopril Not on aspirin due to GI bleeding Occupational exposure to other air contaminants 11/21/2020 Hypomagnesemia 11/10/2020 Recurrent major depressive disorder, in [facility] n 05/22/2020 History of [place] (myocardial infarction) 05/22/2020 Primary open-angle glaucoma, 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 Nuñez. Will recheck through [facility] next time he is seen. Major depressive [...] range 120 to 150. Last hemoglobin A1c 7.53289 continue metformin, Lantus Rectal bleeding 02/05/2016 01/10/2017 Overview: Had EGD/colonoscopy Acute blood loss anemia 02/05/201612/27 HTN, goal below 140/90 02/05/201601/10 Neuropathy 02/05/2016 01/10/2017 AK (actinic keratosis) 01/12/201401/10 Overview: Efudex (Salina Vazquez)- 04/2014 documented as of this encounter (statuses as of 05/30/2023) Immunizations Name Administration Dates Next Due COVID-19 mRNA, LNP-s, No Pre serve, 2-Dose Series (Doximity) 04/05/2021,07/04/2020,06/13/2020 COVID-19, MRNA-LNP, 23-24, P F, 30 [...] Progress Notes * Melinda Stallworth DPM - 05/30/2023 10:40 AM EST Podiatry Established Note [facility] Name: Vahe Resendez : 1945 Date: 05/30/2023 REASON FOR VISIT: foot care SUBJECTIVE: This patient is a 78 year old male who presents today for follow up of recurrent callusand nail care. He inquires about neuropathy today. He takes gabapentin but notes numbness in both feet and now hands although the left hand was injured in the past (needle draw). He feels he is walking on a different surface or if as his feet are elevated. Medical necessity reason: type 2 DM with polyneuropathy Last primary care appointment: 12/25/2022 Sakshi Barros Past Medical History: Diagnosis Date Acute blood loss anemia AK (actinic keratosis) 01/12/2014 Efudex (Salina Vazquez)- 04/2014 Anxiety 02/05/2016 Basal cell carcinoma of nose 07/09/2016 BPH without obstruction/lower urinary tract symptoms 02/05/2016 Heartburn 02/05/2016 Hypertension Mixed hyperlipidemia 02/05/2016 Rectal bleeding 02/05/2016 Had EGD/colonoscopy Restless legs syndrome 02/05/2016 Type 2 diabetes mellitus with hemoglobin A1c goal of less than 7.0% ([facility]) 02/05/2016 ALLERGIES: Review of patient's allergies indicates: No Known Allergies REVIEW OF SYSTEMS: CONSTITUTIONAL: No fever FOCUSED PODIATRIC EXAM: Vascular: Pedal pulses palpable including dorsalis pedis and posterior tibial artery at 2/4 bilaterally. Capillary refill time is within normal limits to all toes. Non pitting edema noted to the lower legs. No warmth. Neurologic: Sensation (light touch) intact to the bilateral lower extremities. No hypersensitivity. No weakness. Musculoskeletal: No pain with palpation of the bilateral forefoot. Dermatological: Skin is thin. Hyperkeratotic skin to the right and left plantar foot sub met 5. Nails are thickenedand elongated 1-5 bilaterally. Eschar to the dorsal aspect of the left 4th toe. Abrasion to the dorsal lateral right third toe. Class Findings for Routine Foot Care Class [...] Date/Time HEMOGLOBIN A1C - [facility] 7.7 (H) 12/25/2022 12:15 PM HEMOGLOBIN A1C - [facility] 7.9 (H) 06/12/2022 11:08 AM HEMOGLOBIN A1C - [facility] 7.3 (H) 12/04/2021 12:57 PM HEMOGLOBIN A1C - [facility] 7.7 (H) 08/11/2018 12:02 PM HEMOGLOBIN A1C - [facility] 6.3 (H) 01/07/2018 01:52 PM HEMOGLOBIN A1C - [facility] 5.8 02/05/2016 08:55 AM ASSESSMENT: 1. Pre-ulcerative calluses x 2 bilateral plantar foot 2. Type 2 diabetes mellitus with diabetic neuropathy, without long-term current use of insulin (HCC) 3. Encounter for other procedures for purposes [...] performed without incident. The patient tolerated well. I applied antibiotic ointment to abrasion sites. He is to monitor these daily. I reviewed neuropathy. I discussed option of PT. He declines. Given this affects his hands, I recommended he discuss with Dr. Barros. Follow up: 3 months Melinda Stallworth DPM documented in this encounter Nursing Notes * Deanna Tobias MED ASSIST - 05/30/2023 10:46 AM EST Routine nail trimming documented in this encounter Plan of Treatment Upcoming Encounters Date Type Department Care Team (Late st Contact Info) Description 06/04/2023 11:00 AM EST Office Visit Dermatology [address] [place] [address] Charline Hurst PA-C [address] [place] [address] [place] [address] 06/17/2023 11:30 AM EST Office Visit Cardiology [address] [place] [address] Tito House PA-C [address] [facility] [place] [address] 07/09/2023 10:30 AM EDT Office Visit Family Medicine [address] [place] [phone] Sakshi Barros, [address] [place] [address] 07/21/2023 11:00 AM EDT Office Visit Interventional Pain Center, [facility] [address] [place] [address] Saige Preston PA-C [address] [place] [address] 08/29/2023 9:40 AM EDT Office Visit Podiatry [facility] [address] [place] [address] Melinda Stallworth, DPM [address] [facility] [place] [address] Scheduled Procedures Name Priority Associated Diagnoses Date/Ti [...] 06/12/2022, 10/0 09/2020, 11/21/2020, Additional history exists HbA1c 06/26/2023 [...] this encounter Medical Devices Implanted Type Area Fleet Service Manager Device Identifier Shelf Expiration Date Model / Serial / Lot Mesh 3dmax 3.1x5.3in t Med - [id number] Implanted:Qty: 1 on 05/02/2023 by Jean Claude Givens MD at OR [facility] Right: Groin CR BARD : DAVOL 03/25/2027 [id number] / / [id number] documented as of this encounter Visit Diagnoses Diagnosis Type 2 diabetes mellitus with diabetic neuropathy, without long-term current use of insulin (HCC)- Primary Pre-ulcerative calluses Corns and callosities Encounter for other procedures for purposes other than remedying health state documented in this encounter Advance Directives Latest [...] Discussed due to patient's condition Care Teams Entry Level Business Analyst Relationship Specialty Start Date End Date Sakshi Barros DO [address] [place] [address] [place] [address] PCP - General Internal Medicine 02/05/16 documented as of this encounter
--- OUTSIDE RECORDS SUMMARY | 2023-10-04 23:14 | External Medical Summary | Summary of Care ---
Author Name Unknown Organization [facility] Address [address] [facility] [place] [address] Phone [phone] Care Team Providers Care Therapeutic Dietitian Name Role Phone Sakshi Barros Primary Care Provider [phone] Reason for Visit * Reason Comments Follow Up 1 year for full skin exam, no concerns Encounter Details Date Type Department Care Team (Late st Contact Info) Description 06/04/2023 11:00 AM EST Office Visit Dermatology [address] [place] [address] Charline Hurst PA-C [address] [place] [address] [place] [address] Hx of nonmelanoma skin cancer*; Actinic keratosis; Lentigines; Multiple nevi; Scar condition and fibrosis of skin; Skin exam, screening for cancer; Neoplasm of uncertain behavior of skin Allergies No known active allergiesdocumented as of this encounter (statuses as of 06/04/2023) Medications Medication Sig Dispensed Refills Start Date [...] MMIndications:DM type 2, goal HbA1c < 8% ([facility]) USE ONCE DAILY 100 Each 3 08/21/2022 4 Active Lantus SoloStar 100 UNIT/ML Subcutaneous Solution Pen-injectorIndicati ons:DM type 2, goal HbA1c < 8% ([facility]) INJECT 15 UNITS UNDER THE SKIN [...] Tablet 2 11/16/2022 Active OneTouch Delica Plus [id number] :Type 2 diabetes mellitus with diabetic neuropathy, without long-term current use of insulin ([facility]) Test up to four times daily [...] weeks and then send photos through My [email or web address]/My Chart at end of treatment. 40 g 1 06/04/2023 Active documented as of this encounter (statuses as of 06/04/2023) Active Problems Problem Noted Date Diagnosed Date [...] Statin History of cholecystectomy 10/15/2021 Atherosclerosis of kaibab co ronary artery without angina pectoris 05/29/2021 Last Assessment & Plan: Continue statin, metoprolol, lisinopril Not on aspirin due to GI bleeding Occupational exposure to other air contaminants 11/21/2020 Hypomagnesemia 11/10/2020 Recurrent major depressive disorder, in [facility] 05/22/2020 History of [place] (myocardial infarction) [...] as of this encounter (statuses as of 06/04/2023) Resolved Problems Problem Noted Date Diagnosed Date Resolved Date Absolute anemia 02/21/2021 06/12/2022 Abnormal thyroid blood test 03/30/2020 11/21/2020 Overview: From Dr. Nuñez. Will recheck through [email or web address] next time he is seen. Major depressive [...] range 120 to 150. Last hemoglobin A1c 7.12384 continue metformin, Lantus Rectal bleeding 02/05/2016 01/10/2017 Overview: Had EGD/colonoscopy Acute blood loss anemia 02/05/201612/27 HTN, goal below 140/90 02/05/201601/10 Neuropathy 02/05/2016 01/10/2017 AK (actinic keratosis) 01/12/201401/10 Overview: Efudex (Salina Vazquez)- 04/2014 documented as of this encounter (statuses as of 06/04/2023) Immunizations Name Administration Dates Next Due COVID-19 mRNA, LNP-s, No Pre serve, 2-Dose Series (Pfizer) 04/05/2021,07/04/2020,06/13/2020 COVID-19, MRNA-LNP, 23-24, P F, 30 MCG/0.3 mL, 12 YRS AND ABOVE, IM (Spotie-Comirnaty) 02/24/2023 Pneumococcal Conjugate Vacc, 13 Valent (Prevnar) [...] * Patient Instructions* Charline Hurst PA-C - 06/04/2023 11:00 AM EST SUNSCREEN USE AND SUN PROTECTION: 1. [...] zinc. Product examples; Think sport, Think baby, Delphine, [employer], [email or web address], [place] baby. "Baby" products can be used for all ages. documented in this encounter Progress Notes * Jarrod Hamm MD - 06/04/2023 4:09 PM EST I have seen and examined the patient via teledermatology review of chart note and photos with Charline Hurst PA-C. I have reviewed and agree with the assessment and plan. * Charline Hurst PA-C - 06/04/2023 11:00 AM EST SUBJECTIVE: History of Present Illness: Vahe Resendez is a 78 year old male seen today for follow up of full skin exam. Previous office visit: 01/13/2023 Last attempted treatments include: cryo to AKs Lesion on R cheek, present since last visit, felt to be an ingrown hair. No tx to date. 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 ALLERG IES: Patient has noknown allergies. OBJECT JAC: GEN: alert, no distress, appears oriented, pleasant and cooperative. SKIN: Detailed exam of hair, face including lids and lips, neck, chest, abdomen, back, bilateral upper ext. (arm, hand, fingers), bilateral lower ext. (leg, foot, toes), palpation of scalp, fingernails, toenails, inguinal areas, groin (penis, scrotum and perineum), buttocks and anus completed: 1A. R lateral cheek-1.0x0.9cm pink centrally depressed and indurated plaque with rolled borders. 2. L nare-white atrophic scar. 3. Scalp/face-Well and ill defined pink scaly papules. 4. Trunk/bilat arms and legs-About 20 total; light brown 3-4mm macules. 5. Trunk (R chest)/bilat arms (L upper arm)-Many 4-6mm well defined light to medium brown homogenous stellate macules. ASSESS MENT/PLAN: 1A. BCC on R lateral cheek-Tangential biopsy of the lesion noted above to confirm diagnosis. The procedure, risks (to include but not limited to pain, bleeding, infection and scarring), benefits, alternatives and expected outcomes were discussed with the patient and verbal consent was obtained. Time out called. Patient identified, procedure verified, site identified and verified. Patient and staff present in agreement. Area prepped with alcohol and anesthetized using 1cc of 0.5% lidocaine with epinephrine at 1:200,000 concentration. Tangential biopsy of lesion performed. 20% AlCl and bandaging applied. Specimen sent to pathology. Patient instructed in routine post-op care and given wound care brochure. 2. Scar s/p squamous cell carcinoma and basal cell carcinoma on L nare-No sign of recurrence. 3. Actinic keratoses on scalp/face-Plan on field therapy over cryotherapy as treatment for lesions.Explained in office and pt given written sheet with information on medication, instructions on treatment, appropriate response to medication, and tips on symptom relief. Pt will send photos through My Chart at the end of therapy for post treatment instructions. 4. Nevi on trunk/bilat arms and legs-no tx needed, pt given reassurance and written education aboutdiagnosis. Skin cancer brochure given at previous office visit (pt declined need for another) and ABCDE's discussed with patient. Annual full body skin examination (unless I recommended otherwise), self-examination, and sun protection (SPF 30+ daily to sun exposed areas, with reapplication every 1-2 hours when out in sun for long periods of time) advised and discussed. Recommended sooner follow up for new or changing lesions. These changes include rapid enlargement, changes in color or shape or symptoms, bleeding, or other concerns. The common features and behavior of non-melanoma skin cancers (e.g. BCC/SCC) as well as the ABCDEs and ugly duckling features of melanoma were also reviewed. 5. Lentigines on trunk (R chest)/bilat arms (L upper arm)-no tx needed, pt given reassurance. Patient alone today. Photo(s) of #1-5 taken, pt verbally consented to having photo(s) taken. Follow-up: 1 year for full skin exam Call pt on home phone with bx result. Applicable photos (if any) and chart reviewed [...] the visit and treatment. Charline Hurst PA-C 06/04/2023 11:16 AM Dermatology [address] [place] [address] documented in this encounter Nursing Notes * Sylvia Raya LPN - 06/04/2023 10:59 AM EST Patient identified by full name and date of . Chief Complaint Patient presents with Follow Up 1 year for full skin exam, no concerns documented in this encounter Plan of Treatment Upcoming Encounters Date Type Department Care Team (Late st Contact Info) Description 06/17/2023 11:30 AM EST Office Visit Cardiology [address] [place] [address] Tito House PA-C [address] [place] [address] 07/09/2023 10:30 AM EDT Office Visit Family Medicine [address] [place] [phone] Sakshi Barros [address] [place] [address] 07/21/2023 11:00 AM EDT Office Visit Interventional Pain Center, [facility] [address] [facility] [place] [address] Saige Preston PA-C [facility] [place] [address] 08/29/2023 9:40 AM EDT Office Visit Podiatry [facility] [address] [facility] [place] [address] Melinda Stallworth, DPM [address] [facility] [place] [address] 06/16/2024 10:20 AM EST Office Visit Dermatology [address] [place] [address] Charline Hurst PA-C [address] [place] [address] [place] [address] Pending Results Name Type Priority Associated Diagnoses Date /Time SURGICAL PATHOLOGY Pathology Routine Neoplasm of uncertain behavior of skin 06/04/2023 11:15 AM EST Scheduled Procedures Name Priority Associated Diagnoses Date/Ti in ESOPHAGOGASTRODUODENOSCOPY ( EGD), FLEXIBLE, TRANSORAL, DIAGNOSTIC Recall [...] this encounter Medical Devices Implanted Type Area Banbury Mixer Operator Device Identifier Shelf Expiration Date Model / Serial / Lot Mesh 3dmax 3.1x5.3in t Med - [id number] Implanted:Qty: 1 on 05/02/2023 by Jean Claude Givens MD at OR [facility] Right: Brittani JAMES BARD : CHAY 03/25/2027 [id number] / / [id number] documented as of this encounter Procedures Procedure Name Priority Date/Time Associated Diagnosis Comments DERM IMAGE (SITE) Routine 06/04/2023 Actinic keratosis Hx of nonmelanoma skin cancer Lentigines Multiple nevi Scar condition and fibrosis of skin Skin exam, screening for cancer documented in this encounter Results * DERM IMAGE (SITE) (06/04/2023) 06/04/2023 Charline Hurst PA-C DIGITAL PHOTOG DANICA documented in this encounter Visit Diagnoses Diagnosis Hx of nonmelanoma skin cancer- Primary Personal history of other malignant neoplasm of skin Actinic keratosis Lentigines Other dyschromia Multiple nevi Benign neoplasm of skin, site unspecified Scar condition and fibrosis of skin Skin exam, screening for cancer Screening for malignant neoplasm of the skin Neoplasm of uncertain behavior of skin documented in this encounter Advance Directives Latest [...] Discussed due to patient's condition Care Teams Therapeutic Dietitian Relationship Specialty Start Date End Date Barros, Sakshi De Leon, DO [address] [place] [address] [place] [id number] PCP - General Internal Medicine 02/05/16 documented as of this encounter
--- OUTSIDE RECORDS SUMMARY | 2023-10-04 23:14 | External Medical Summary | Summary of Care ---
Author Name Unknown Organization [facility] Address [address] [facility] [place] [address] Phone [phone] Care Team Providers Care People Greeter Name Role Phone Sakshi Barros Primary Care Provider [phone] Reason for Visit * Reason Comments Follow Up 1 year for full skin exam, no concerns Encounter Details Date Type Department Care Team (Late st Contact Info) Description 06/04/2023 11:00 AM EST Office Visit Dermatology [address] [place] [address] Charline Hurst PA-C [address] [place] [address] [place] [address] Hx of nonmelanoma skin cancer*; Actinic keratosis; [...] 2, goal HbA1c < 8% ([facility]) USE ONCE DAILY 100 Each 3 08/21/2022 4 Active Lantus SoloStar 100 UNIT/ML Subcutaneous Solution Pen-injectorIndicati ons:DM type 2, goal HbA1c < 8% ([facility]) INJECT 15 UNITS UNDER THE SKIN [...] Tablet 2 11/16/2022 Active OneTouch Delica Plus [id number] :Type 2 diabetes mellitus with diabetic neuropathy, without long-term current use of insulin ([facility]) Test up to four times daily [...] and then send photos through My [employer]/My Chart at end of treatment. 40 g [...] Statin History of cholecystectomy 10/15/2021 Atherosclerosis of [place] ronary artery without angina pectoris 05/29/2021 Last Assessment & Plan: Continue statin, metoprolol, lisinopril Not on aspirin due to GI bleeding Occupational exposure to other air contaminants 11/21/2020 Hypomagnesemia 11/10/2020 Recurrent major depressive disorder, in [facility] n 05/22/2020 History of [place] (myocardial infarction) [...] Overview: From Dr. Nuñez. Will recheck through [employer] next time he is seen. Major depressive [...] range 120 to 150. Last hemoglobin A1c 7.16116 continue metformin, Lantus Rectal bleeding 02/05/2016 01/10/2017 [...] MCG/0.3 mL, 12 YRS AND ABOVE, IM ([employer]-Comirnaty) 02/24/2023 Pneumococcal Conjugate Vacc, 13 Valent (Prevnar) [...] zinc. Product examples; Think sport, Think baby, Busbud, [employer]ive, [employer], [employer] baby. "Baby" products can be used for all ages. documented in this encounter Progress Notes * Charline Hurst PA-C - 06/04/2023 11:00 AM EST SUBJECTIVE: History of Present Illness: Vahe Resendez is a 78 year old male seen today for follow up of full skin exam. Previous office visit: 01/13/2023 Last attempted treatments include: cryo to AKs Lesion on R cheek, present since last visit, felt to be an ingrown hair. No tx to date. 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 REVIEW OF SYSTEMS: SKIN: No [...] keratoses Reviewed, same day as visit, 0 [facility] Dermatology lab work(s)/pathology report(s) as well [...] 180 Tablet 3 Vitamin D3 50 MCG (1999 [place]) Oral [...] BEDTIME 90 Tablet 2 OneTouch Delica Plus [id number] Test up to four times daily 400 [...] Charline Hurst PA-C 06/04/2023 11:16 AM Dermatology [address] Marcella MÁRQUEZ [address] documented in this encounter Nursing Notes * [...] 06/17/2023 11:30 AM EST Office Visit Cardiology [address] [place] [address] Tito House PA-C [address] [facility] [place] [address] 07/09/2023 10:30 AM EDT Office Visit Family Medicine [address] [place] [phone] Sakshi Barros[address] [place] [address] 07/21/2023 11:00 AM EDT Office Visit Interventional [facility] Center, [facility] [place] [address] Saige Preston PA-C [address] [place] [address] 08/29/2023 9:40 AM EDT Office Visit Podiatry [facility] 132 [facility] [place] [address] Melinda Stallworth, DPGermán [address] [place] [address] [place] [address] 06/16/2024 10:20 AM EST Office Visit Dermatology [address] [place] [address] Charline Hurst PA-C [address] [place] [address] [place] [address] Pending Results Name Type Priority Associated Diagnoses Date /Time SURGICAL PATHOLOGY Pathology Routine Neoplasm of uncertain behavior of skin 06/04/2023 11:15 AM EST Scheduled Procedures Name Priority Associated Diagnoses Date/Ti ks ESOPHAGOGASTRODUODENOSCOPY ( EGD), FLEXIBLE, TRANSORAL, DIAGNOSTIC Recall Alberto's esophagus with esophagitis COLONOSCOPY FLEXIBLE PROXIMAL DIAGNOSTIC Recall Screening for colon cancer Health Maintenance Due Date Last Done Comments Alpha-1 Antitrypsin 01/16/1964 Hepatitis B (1 of 3 - Risk 3-dose series) 2006 Depression Screening 02/21/2022 02/21/2021 Albumin/Creatinine Ratio 06/12/2023 023, 03/06/2022, 12/04/2021, Additional history exists B-12 06/12/2023 06/12/2022, 100 09/2020, 11/21/2020, Additional history exists HbA1c 06/26/2023 [...] this encounter Medical Devices Implanted Type Area Zone Supervisor Firearms Device Identifier Shelf Expiration Date Model / Serial / Lot Mesh 3dmax 3.1x5.3in t Med - [id number] Implanted:Qty: 1 on 05/02/2023 by Jean Claude Givens MD at OR [facility] Right: Groin CR BARD : ARMENOL 03/25/2027 [id number] / / [id number] documented as of this encounter Visit Diagnoses Diagnosis Hx of [...] Discussed due to patient's condition Care Teams People Greeter Relationship Specialty Start Date End Date Sakshi Barros DO [address] [place] [address] [place] [address] PCP - General Internal Medicine 02/05/16 documented as of this encounter
--- OUTSIDE RECORDS SUMMARY | 2023-10-04 23:14 | External Medical Summary | Summary of Care ---
Author Name Unknown Organization [facility] Address [address] [facility] [place] [address] Phone [phone] Care Team Providers Care Inside Sales Recruiter Name Role Phone Sakshi Barros Primary Care Provider [phone] Reason for Visit * Reason Comments Medication Refill Encounter Details Date Type Department Care Team (Late st Contact Info) Description 05/29/2023 Refill Cardiology [address] [place] [phone] Wilfredo Martinez MD [address] [place] [address] HTN, goal below 140/90* Allergies No known active allergiesdocumented as of this encounter (statuses as of 05/29/2023) Medications Medication Sig Dispensed Refills Start Date [...] DAY E11.9 300 Strip 1 3 Active Potassium Chloride Angélica ER 20 MEQ Oral Tablet Extended Release TAKE ONE TABLET BY MOUTH TWICE A DAY WITH MORNING AND EVENING MEALS 200 Tablet 1 3 10/14/19 24 Active Glucose Blood In Vitro Strip USE [...] MOUTH AT BEDTIME 200 Tablet 3 3 09/09/19 24 Active Additional [...] < 8% ([facility]) INJECT 15 UNITS UNDER THE [...] Tablet 2 3 Active OneTouch Delica Plus [id number] :Type 2 diabetes mellitus with diabetic neuropathy, [...] 45 Tablet 3 4 05/28/19 25 Active Metoprolol Succinate ER 25 MG Oral Tablet Extended Release 24 Hour (toPROL XL) TAKE ONE-HALF TABLET BY MOUTH IN THE MORNING 30 Tablet 5 3 05/29/19 24 Discontinu ed(Refill) documented as of this encounter (statuses as of 05/29/2023) Active Problems Problem Noted Date Diagnosed Date [...] Statin History of cholecystectomy 10/15/2021 Atherosclerosis of [place] co ronary artery without angina pectoris 05/29/2021 Last Assessment & Plan: Continue statin, metoprolol, lisinopril Not on aspirin due to GI bleeding Occupational exposure to other air contaminants 11/21/2020 Hypomagnesemia 11/10/2020 Recurrent major depressive disorder, in [facility] n 05/22/2020 History of [place] (myocardial infarction) [...] as of this encounter (statuses as of 05/29/2023) Resolved Problems Problem Noted Date Diagnosed Date Resolved Date Absolute anemia 02/21/2021 06/12/2022 Abnormal thyroid blood test 03/30/2020 11/21/2020 Overview: From Dr. Nuñez. Will recheck through [employer] next time he is seen. Major depressive [...] range 120 to 150. Last hemoglobin A1c 7.45448 continue metformin, Lantus Rectal bleeding 02/05/2016 01/10/2017 Overview: Had EGD/colonoscopy Acute blood loss anemia 02/05/201612/27 HTN, goal below 140/90 02/05/201601/10 Neuropathy 02/05/2016 01/10/2017 AK (actinic keratosis) 01/12/201401/10 Overview: Efudex (Salina Vazquez)- 04/2014 documented as of this encounter (statuses as of 05/29/2023) Immunizations Name Administration Dates Next Due COVID-19 mRNA, LNP-s, No Pre serve, 2-Dose Series ([employer]) 04/05/2021,07/04/2020,06/13/2020 COVID-19, MRNA-LNP, 23-24, P F, 30 [...] Telephone Encounter - Brock Franz PA-C - 05/29/2023 10:28 AM ESTSigned Prescriptions: Disp Refills Metoprolol Succinate ER 25 MG Oral Tablet *45 Tab*3 Sig: TAKE ONE-HALF TABLET BY MOUTH IN THE MORNING Authorizing Provider: BROCK FRANZ * Telephone Encounter - Theresa Goldman COT - 05/29/2023 10:26 AM ESTPending Prescriptions: Disp Refills Metoprolol Succinate ER 25 MG Oral Tablet *45 Tab*3 Sig: TAKE ONE-HALF TABLET BY MOUTH IN THE MORNING * Telephone Encounter - Theresa Goldman COT - 05/29/2023 10:25 AM EST Did you pend patient's preferred pharmacy and medication before forwarding?yes Pharmacy: [facility] Pending Prescriptions: Disp Refills Metoprolol Succinate ER 25 MG Oral Tablet*45 Tab*3 Sig: TAKE ONE-HALF TABLET BY MOUTH IN THE MORNING Last Visit: 12/10/2022 (in office), Visit date not found (telemedicine) Next Visit: 06/17/2023 If no future appointments scheduled, and last appointment is greater than a year ago, please schedule patient for a follow-up appointment Last date the medication was ordered: 05-13-2022 Is this request for a controlled substance?No Urine Drug Screen:No results found for this or any previous visit. Patient Phone Numbers Labs: Lab Results Component Value Date/Time CREAT 1.1 12/13/2022 12:22 PM CREAT 0.68 10/15/2021 12:00 AM CREAT 1.2 06/30/2019 03:18 PM POTASSIUM 5.1 12/13/2022 12:22 PM POTASSIUM 2.8 (A) 10/15/2021 12:00 AM POTASSIUM 5.2 (H) 06/30/2019 03:18 PM TSH 3.67 05/29/2021 02:49 PM TSH 3.710 11/09/2020 12:00 AM TSH 2.88 06/30/2019 03:18 PM LDLCALC 50.80 11/09/2020 12:00 AM LDLCALC 88 02/05/2016 08:55 AM LDLDIRECT 55 06/12/2022 11:08 AM LDLDIRECT 71 11/09/2020 12:00 AM LDLDIRECT NOT APPLICABLE 02/05/2016 08:55 AM ALT 13 12/13/2022 12:22 PM ALT 24 11/29/2016 12:00 AM ALT 25 02/05/2016 08:55 AM HGBA1C 7.7 (H) 12/25/2022 12:15 PM HGBA1C 6.8 (A) 11/09/2020 12:00 AM HGBA1C 7.7 (H) 08/11/2018 12:02 PM documented in this encounter Plan of Treatment Upcoming Encounters Date Type Department Care Team (Late st Contact Info) Description 05/30/2023 10:40 AM EST Office Visit Podiatry [facility] 132 [facility] [place] [address] Melinda Stallworth DPM [address] [facility] [place] [address] 06/04/2023 11:00 AM EST Office Visit Dermatology [address] [place] [address] Charline Hurst PA-C [address] [place] [address] [place] [address] 06/17/2023 11:30 AM EST Office Visit Cardiology [address] [place] [address] Brock Franz PA-C [address] [place] [address] 07/09/2023 10:30 AM EDT Office Visit Family Medicine [address] [place] [phone] Sakshi Barros DO [address] [place] [address] [place] [address] Scheduled Procedures Name Priority Associated Diagnoses Date/Ti [...] this encounter Medical Devices Implanted Type Area Income Tax Adjuster Device Identifier Shelf Expiration Date Model / Serial / Lot Mesh 3dmax 3.1x5.3in [facility] Med - [id number] Implanted:Qty: 1 on 05/02/2023 by Jean Claude Givens MD at OR [facility] Right: Groin CR BARD : DAVOL 03/25/2027 [id number] / / [id number] documented as of this encounter Visit Diagnoses Diagnosis HTN, goal below 140/90- Primary Unspecified essential hypertension Type 2 diabetes mellitus with diabetic neuropathy, [...] Discussed due to patient's condition Care Teams Inside Sales Recruiter Relationship Specialty Start Date End Date Sakshi Barros DO [address] [place] [address] [place] [address] PCP - General Internal Medicine 02/05/16 documented as of this encounter
--- OUTSIDE RECORDS SUMMARY | 2023-10-04 23:14 | External Medical Summary | Summary of Care ---
Author Name Unknown Organization [facility] Address [address] [place] [address] Phone [phone] Care Team Providers Care Campaign Management Senior Manager Name Role Phone Sakshi Barros Primary Care Provider [phone] Reason for Visit * Reason Onset Date Comments Advice 05/05/2023 Encounter Details Date Type Department Care Team (Late st Contact Info) Description 05/05/2023 Telephone General Surgery, [facility] 132 [facility] [place] [phone] Services, Scheduling [address] [place] [address] Advice Allergies No known active allergiesdocumented as of this encounter (statuses as of 05/05/2023) Medications Medication Sig Dispensed Refills Start Date [...] DAY 300 Strip 1 10/09/2022 4 Active Lisinopril 2.5 MG Oral Tablet (Prinivil) TAKE ONE TABLET BY MOUTH EVERY MORNING 90 Tablet 1 09/26/2022 4 Active Additional Information Patient taking differently: Indications: bp, Reported on 10/28/2022 Rosuvastatin Calcium 40 MG Oral Tablet (Crestor)Indications [...] 15 Units Subcutaneous ONCE, Reported on 04/29/2023 Metoprolol Succinate ER 25 MG Oral Tablet Extended Release 24 Hour (toPROL XL) TAKE ONE-HALF TABLET BY MOUTH IN THE MORNING 30 Tablet 5 05/13/2022 4 Active Pramipexole Dihydrochloride 0.25 MG Oral Tablet (Mirapex)Indications :Restless legs syndrome TAKE ONE TABLET BY MOUTH AT BEDTIME 100 Tablet 3 04/15/2022 4 Active Sertraline HCl 50 MG Oral Tablet (Zoloft)Indications: Anxiety TAKE 1 TABLET BY MOUTH EVERYDAY AT BEDTIME 90 Tablet 2 11/16/2022 Active OneTouch Delica Plus [id number] :Type 2 diabetes mellitus with diabetic neuropathy, [...] the morning. 200 Capsule 3 04/30/2023 Active oxyCODONE-Acetaminop hen 5-325 MG Oral Tablet (Percocet) Take 1 Tablet by mouth every 6 hours as needed for Pain, Moderate. 10 Tablet 0 05/02/2023 Active documented as of this encounter (statuses as of 05/05/2023) Active Problems Problem Noted Date Diagnosed Date [...] Statin History of cholecystectomy 10/15/2021 Atherosclerosis of [place] co ronary artery without angina pectoris 05/29/2021 Last Assessment & Plan: Continue statin, metoprolol, lisinopril Not on aspirin due to GI bleeding Occupational exposure to other air contaminants 11/21/2020 Hypomagnesemia 11/10/2020 Recurrent major depressive disorder, in [facility] n 05/22/2020 History of [place] (myocardial infarction) [...] as of this encounter (statuses as of 05/05/2023) Resolved Problems Problem Noted Date Diagnosed Date Resolved Date Absolute anemia 02/21/2021 06/12/2022 Abnormal thyroid blood test 03/30/2020 11/21/2020 Overview: From Dr. Nuñez. Will recheck through [facility] next time he is seen. Major depressive [...] range 120 to 150. Last hemoglobin A1c 7.01577 continue metformin, Lantus Rectal bleeding 02/05/2016 01/10/2017 Overview: Had EGD/colonoscopy Acute blood loss anemia 02/05/201612/27 HTN, goal below 140/90 02/05/201601/10 Neuropathy 02/05/2016 01/10/2017 [place] (actinic keratosis) 01/12/201401/10 Overview: Efudex (Salina Vazquez)- 04/2014 documented as of this encounter (statuses as of 05/05/2023) Immunizations Name Administration Dates Next Due COVID-19 mRNA, LNP-s, No Pre serve, 2-Dose Series ([employer]) 04/05/2021,07/04/2020,06/13/2020 COVID-19, MRNA-LNP, 23-24, P F, 30 MCG/0.3 mL, 12 YRS AND ABOVE, IM ([employer]-Comirnat) 02/24/2023 Pneumococcal Conjugate Vacc, 13 Valent (Prevnar) [...] encounter Miscellaneous Notes * Telephone Encounter - Allison Cox LPN - 05/05/2023 10:30 AM EST Noted. * Telephone Encounter - Jessica Manley OSA - 05/05/2023 9:57 AM EST Patient called in stating that he is doing very well and has had no issues and hasn't taken any Oxyjust tylenol when he does have some pain. documented in this encounter Plan of Treatment Upcoming Encounters Date Type Department Care Team (Late st Contact Info) Description 05/14/2023 11:15 AM EST Office Visit General Surgery, [facility] 132 [facility] [place] [address] Jean Claude Givens MD [address] [place] [address] 06/04/2023 11:00 AM EST Office Visit Dermatology [address] [place] [address] Charline Hurst PA-C [address] [place] [address] [place] [address] 06/17/2023 11:30 AM EST Office Visit Cardiology [address] [place] [address] Tito House PA-C [address] [place] [address] 07/09/2023 10:30 AM EDT Office Visit Family Medicine [address] [place] [phone] Sakshi Barros [address] [place] [address] Scheduled Procedures Name Priority Associated Diagnoses Date/Ti [...] exists Diabetic Eye Exam 09/25/2023 09/24/2022, , 08/24/2021, Additional history exists GFR 12/14/2023 12/13/2022, 12/27, [...] this encounter Medical Devices Implanted Type Area Welding Rod Coater Device Identifier Shelf Expiration Date Model / Serial / Lot Mesh 3dmax 3.1x5.3in t Med - [id number] Implanted:Qty: 1 on 05/02/2023 by Jean Claude Givens MD at OR [facility] Right: Groin CR BARD : DAVOL 03/25/2027 [id number] / / [id number] documented as of this encounter Advance Directives [...] Discussed due to patient's condition Care Teams Campaign Management Senior Manager Relationship Specialty Start Date End Date Sakshi Barros DO [address] [place] [address] [place] [address] PCP - General Internal Medicine 02/05/16 documented as of this encounter
--- OUTSIDE RECORDS SUMMARY | 2023-10-04 23:14 | External Medical Summary | Summary of Care ---
Author Name Unknown Organization [facility] Address [address] [facility] [place] [address] Phone [phone] Care Team Providers Care Lease Administration Supervisor Name Role Phone Cindy Barors DO Primary Care Provider + [phone] Reason for Visit * Reason Comments Medication Refill Encounter Details Date Type Department Care Team (Late st Contact Info) Description 05/16/2023 Refill Family Medicine [address] [place] [phone] Cindy Barros DO [address] [place] [address] [place] [address] Allergies No known active allergiesdocumented as of this encounter (statuses as of 05/16/2023) Medications Medication Sig Dispensed Refills Start Date [...] 2, goal HbA1c < 8% ([facility]) USE ONCE DAILY 100 Each 3 3 08/21/19 24 Active Lantus SoloStar 100 UNIT/ML Subcutaneous Solution Pen-injectorIndicati ons:DM type 2, goal HbA1c < 8% ([facility]) INJECT 15 UNITS UNDER THE SKIN DAILY 15 mL 3 3 07/25/19 24 Active Additional Information Patient taking differently: 15 Units Subcutaneous ONCE, Reported on 04/29/2023 Metoprolol Succinate ER 25 MG Oral Tablet Extended Release 24 Hour (toPROL XL) TAKE ONE-HALF TABLET BY MOUTH IN THE MORNING 30 Tablet 5 3 06/06/19 24 Active Pramipexole Dihydrochloride 0.25 MG Oral Tablet (Mirapex)Indications :Restless legs syndrome TAKE ONE TABLET BY MOUTH AT BEDTIME 100 Tablet 3 2 06/28/19 24 Active Sertraline HCl 50 MG Oral Tablet (Zoloft)Indications: Anxiety TAKE 1 TABLET BY MOUTH EVERYDAY AT BEDTIME 90 Tablet 2 3 Active OneTouch Delica Plus [id number] :Type 2 diabetes mellitus with diabetic neuropathy, without long-term current use of insulin ([facility]) Test up to four times daily [...] 90 Tablet 1 4 05/15/19 25 Active Lisinopril 2.5 MG Oral Tablet (Prinivil) TAKE ONE TABLET BY MOUTH EVERY MORNING 90 Tablet 1 3 05/16/19 24 Discontinu ed(Refill) documented as of this encounter (statuses as of 05/16/2023) Active Problems Problem Noted Date Diagnosed Date [...] of cholecystectomy 10/15/2021 Atherosclerosis of [place] co ronary artery without angina pectoris 05/29/2021 Last Assessment & Plan: Continue statin, metoprolol, lisinopril Not on aspirin due to GI bleeding Occupational exposure to other air contaminants 11/21/2020 Hypomagnesemia 11/10/2020 Recurrent major depressive disorder, [facility] 05/22/2020 History of [place] (myocardial infarction) [...] as of this encounter (statuses as of 05/16/2023) Resolved Problems Problem Noted Date Diagnosed Date Resolved Date Absolute anemia 02/21/2021 06/12/2022 Abnormal thyroid blood test 03/30/2020 11/21/2020 Overview: From Dr. Nuñez. Will recheck through [facility] next time he is seen. Major depressive [...] range 120 to 150. Last hemoglobin A1c 7.89697 continue metformin, Lantus Rectal bleeding 02/05/2016 01/10/2017 Overview: Had EGD/colonoscopy Acute blood loss anemia 02/05/201612/27 HTN, goal below 140/90 02/05/201601/10 Neuropathy 02/05/2016 01/10/2017 [place] (actinic keratosis) 01/12/201401/10 Overview: Efudex (Salina Vazquez)- 04/2014 documented as of this encounter (statuses as of 05/16/2023) Immunizations Name Administration Dates Next Due COVID-19 mRNA, LNP-s, No Pre serve, 2-Dose Series ([employer]) 04/05/2021,07/04/2020,06/13/2020 COVID-19, MRNA-LNP, 23-24, P F, 30 MCG/0.3 mL, 12 YRS AND ABOVE, IM ([facility] 02/24/2023 Pneumococcal Conjugate Vacc, 13 Valent (Prevnar) [...] encounter Miscellaneous Notes * Telephone Encounter - Hilda Cody RPh - 05/16/2023 8:42 PM ESTSigned Prescriptions: Disp Refills Lisinopril 2.5 MG Oral Tablet (Prinivil) 90 Tab*1 Sig: TAKE ONE TABLET BY MOUTH EVERY MORNINGAuthorizing Provider: CINDY BARROS User: HILDA CODY documented in this encounter Plan of Treatment Upcoming Encounters Date Type Department Care Team (Late st Contact Info) Description 06/04/2023 11:00 AM EST Office Visit Dermatology [address] [place] [address] Charline Hurst PA-C [address] [place] [address] [place] [address] 06/17/2023 11:30 AM EST Office Visit Cardiology [address] [place] [address] Tito House PA-C [address] [place] [address] 07/09/2023 10:30 AM EDT Office Visit Family Medicine [address] [place] [phone] Cindy Barros DO [address] [place] [address] [place] [address] Scheduled Procedures Name Priority Associated Diagnoses Date/Ti [...] this encounter Medical Devices Implanted Type Area Lubrication Supervisor Device Identifier Shelf Expiration Date Model / Serial / Lot Mesh 3dmax 3.1x5.3in t Med - [id number] Implanted:Qty: 1 on 05/02/2023 by Jean Claude Givens MD at OR [facility] Right: Groin CR BARD : DAVOL 03/25/2027 [id number] / / [id number] documented as of this encounter Advance Directives [...] Discussed due to patient's condition Care Teams Lease Administration Supervisor Relationship Specialty Start Date End Date Cindy Barros DO [address] [place] [address] [place] [phone] PCP - General Internal Medicine 02/05/16 documented as of this encounter
--- OUTSIDE RECORDS SUMMARY | 2023-10-04 23:14 | External Medical Summary | Summary of Care ---
Author Name Unknown Organization [facility] Address [address] [facility] [place] [address] Phone [phone] Care Team Providers Care Hide Curer Name Role Phone Cindy Sinclair DO Primary Care Provider + [phone] Reason for Visit * Reason Comments Medication Refill Encounter Details Date Type Department Care Team (Late st Contact Info) Description 06/11/2023 Refill Family Medicine [address] [place] [address] Cindy Sinclair DO [address] [place] [address] [place] [address] DM type 2, goal HbA1c < 8% ([facility])* Allergies No known active allergiesdocumented as of [...] ons:DM type 2, goal HbA1c < 8% ([facility]) INJECT 15 UNITS UNDER THE SKIN [...] Tablet 2 3 Active OneTouch Delica Plus [id number] :Type 2 diabetes mellitus with diabetic neuropathy, [...] weeks and then send photos through My [employer]/My Chart at end of treatment. 40 g 1 4 Active Potassium Chloride Angélica ER 20 MEQ Oral Tablet Extended Release TAKE ONE TABLET BY MOUTH TWICE A DAY WITH MORNING AND EVENING MEALS 200 Tablet 1 4 06/10/19 25 Active Potassium Chloride Angélica ER 20 [...] Statin History of cholecystectomy 10/15/2021 Atherosclerosis of [place] ronary artery without angina pectoris 05/29/2021 Last Assessment & Plan: Continue statin, metoprolol, lisinopril Not on aspirin due to GI bleeding Occupational exposure to other air contaminants 11/21/2020 Hypomagnesemia 11/10/2020 Recurrent major depressive disorder, in remissio n 05/22/2020 History of [place] (myocardial infarction) [...] Overview: From Dr. Nuñez. Will recheck through [employer] next time he is seen. Major depressive [...] range 120 to 150. Last hemoglobin A1c 7.82112 continue metformin, Lantus Rectal bleeding 02/05/2016 01/10/2017 [...] encounter Miscellaneous Notes * Telephone Encounter - Angie Israel, [facility] - 06/11/2023 1:11 PM ESTSigned Prescriptions: Disp Refills Potassium Chloride Angélica ER 20 MEQ Oral Tab*200 Ta*1 Sig: TAKE ONE TABLET BY MOUTH TWICE A DAY WITH MORNING AND EVENING MEALS Authorizing Provider: CINDY SINCLAIR Ordering User: ANGIE ISRAEL * Telephone Encounter - Anige Israel [facility] - 06/11/2023 1:02 PM EST Last BMP showed upper level normal on K+ levels . Will send pt message to have BMP done and send inrefill for fill. Angie Israel [facility] Clinical Pharmacist Telepharmacy [phone] 06/11/2023 1:03 PM documented in this encounter Plan of Treatment Upcoming Encounters Date Type Department Care Team (Late st Contact Info) Description 06/17/2023 11:30 AM EST Office Visit Cardiology [address] [place] [address] Tito House PA-C [address] [place] [address] 07/09/2023 10:30 AM EDT Office Visit Family Medicine [address] [place] [phone] [address] [place] [address] 07/21/2023 11:00 AM EDT Office Visit Interventional Pain Center, [facility] [address] [place] [address] Saige Preston PA-C [address] [place] [address] 08/29/2023 9:40 AM EDT Office Visit Podiatry [facility] 132 [place] [address] Melinda Stallworth, DPGermán [address] [facility] [place] [address] 06/16/2024 10:20 AM EST Office Visit Dermatology [address] [place] [address] Charline Hurst PA-C [address] [place] [address] [place] [address] Scheduled Orders Name Type Priority Associated Diagnoses Orde r Schedule BASIC METABOLIC PANEL Lab Routine DM type 2, goal HbA1c < 8% ([facility]) Expected: 06/11/2023, Expires: 06/11/2024 HEMOGLOBIN A1C Lab Routine DM type 2, goal HbA1c < 8% (HCC) Expected: 06/11/2023, Expires: 06/11/2024 Scheduled Procedures Name Priority Associated Diagnoses Date/Ti wi ESOPHAGOGASTRODUODENOSCOPY ( EGD), FLEXIBLE, TRANSORAL, DIAGNOSTIC Recall [...] this encounter Medical Devices Implanted Type Area Streetcar Repairer Device Identifier Shelf Expiration Date Model / Serial / Lot Mesh 3dmax 3.1x5.3in t Med - [id number] Implanted:Qty: 1 on 05/02/2023 by Angie Givens MD at OR [facility] Right: Groin CR BARD : DAVOL 03/25/2027 [id number] / / [id number] documented as of this encounter Visit Diagnoses Diagnosis DM type 2, goal HbA1c < 8% ([facility])- Primary documented in this encounter Advance Directives Latest [...] Discussed due to patient's condition Care Teams Hide Curer Relationship Specialty Start Date End Date Cindy Sinclair DO [address] [place] [address] [place] [address] PCP - General Internal Medicine 02/05/16 documented as of this encounter
--- OUTSIDE RECORDS SUMMARY | 2023-10-04 23:14 | External Medical Summary | Summary of Care ---
Author Name Unknown Organization [facility] Address [address] [facility] [place] [address] Phone [phone] Care Team Providers Care Pattern Puncher Name Role Phone BarrosSakshi austin Primary Care Provider + [phone] Encounter Details Date Type Department Care Team (Late st Contact Info) Description 02/27/2023 Telephone OR [facility], Operating Room [facility] [address] [facility] [place] [phone] Hayder Vargas MD Allergies No known active allergiesdocumented as of [...] 05/02/2023 metFORMIN HCl 1000 MG Oral Tablet (Glucophage)Indicatio [...] 2, goal HbA1c < 8% ([facility]) USE ONCE DAILY 100 Each 3 08/21/2022 4 Active Lantus SoloStar 100 UNIT/ML Subcutaneous Solution Pen-injectorIndicatio ns:DM type 2, goal HbA1c < 8% ([facility]) INJECT 15 UNITS UNDER THE SKIN DAILY 15 mL 3 06/07/2022 4 Active Additional Information Patient taking differently: 15 Units Subcutaneous ONCE, Reported on 04/29/2023 Pramipexole Dihydrochloride 0.25 MG Oral Tablet (Mirapex)Indications: Restless legs syndrome TAKE ONE TABLET BY MOUTH AT BEDTIME 100 Tablet 3 04/15/2022 4 Active Sertraline HCl 50 MG Oral Tablet (Zoloft)Indications:A nxiety TAKE 1 TABLET BY MOUTH EVERYDAY AT BEDTIME 90 Tablet 2 11/16/2022 Active OneTouch Delica Plus [id number]: Type 2 diabetes mellitus with diabetic neuropathy, [...] severe pain. 60 Tablet 0 02/24/2023 Active documented as of this encounter (statuses [...] Statin History of cholecystectomy 10/15/2021 Atherosclerosis of [place] ronary artery without angina pectoris 05/29/2021 Last Assessment & Plan: Continue statin, metoprolol, lisinopril Not on aspirin due to GI bleeding Occupational exposure to other air contaminants 11/21/2020 Hypomagnesemia 11/10/2020 Recurrent major depressive disorder, in remissio n 05/22/2020 History of [place] (myocardial infarction) [...] Overview: From Dr. Nuñez. Will recheck through [employer] next time he is seen. Major depressive [...] range 120 to 150. Last hemoglobin A1c 7.88953 continue metformin, Lantus Rectal bleeding 02/05/2016 01/10/2017 Overview: Had EGD/colonoscopy Acute blood loss anemia 02/05/201612/27 HTN, goal below 140/90 02/05/201601/10 Neuropathy 02/05/2016 01/10/2017 AK (actinic keratosis) 01/12/201401/10 Overview: Efudex (Salina Vazquez)- 04/2014 documented as of this encounter (statuses as of 05/29/2023) Immunizations Name Administration Dates Next Due COVID-19 mRNA, LNP-s, No Pre serve, 2-Dose Series (DrDoctor) 04/05/2021,07/04/2020,06/13/2020 COVID-19, MRNA-LNP, 23-24, P F, 30 MCG/0.3 mL, 12 YRS AND ABOVE, IM (Gencia-Comirnaty) 02/24/2023 Pneumococcal Conjugate Vacc, 13 Valent (Prevnar) [...] encounter Miscellaneous Notes * Telephone Encounter - Lizbet Mcdonald RN - 02/27/2023 10:38 AM EDT Attempted to call for pre anesthesia evaluation. No answer. Voice mail left requesting return call documented in this encounter Plan of Treatment Upcoming Encounters Date Type Department Care Team (Late st Contact Info) Description 05/30/2023 10:40 AM EST Office [facility] [place] [address] Melinda Stallworth DPM [address] [facility] [place] [address] 06/04/2023 11:00 AM EST Office Visit Dermatology [address] [place] [address] Charline Hurst PA-C [address] [place] [address] [place] [address] 06/17/2023 11:30 AM EST Office Visit Cardiology [address] [place] [address] Tito House PA-C [address] [place] [address] 07/09/2023 10:30 AM EDT Office Visit Family Medicine [address] [place] [phone] Sakshi Barros DO [address] [place] [address] [place] [address] Scheduled Procedures Name Priority Associated Diagnoses Date/Ti me ESOPHAGOGASTRODUODENOSCOPY ( EGD), FLEXIBLE, TRANSORAL, DIAGNOSTIC Recall Alberto's esophagus with esophagitis COLONOSCOPY FLEXIBLE PROXIMAL DIAGNOSTIC Recall Screening for colon cancer Health Maintenance Due Date Last Done Comments Alpha-1 Antitrypsin 01/16/1964 Hepatitis B (1 of 3 - Risk 3-dose series) 2006 Depression Screening 02/21/2022 02/21/2021 Albumin/Creatinine Ratio 06/12/20232 023, 03/06/2022, 12/04/2021, Additional history exists B-12 [...] this encounter Medical Devices Implanted Type Area Web Site Developer Device Identifier Shelf Expiration Date Model / Serial / Lot Mesh 3dmax 3.1x5.3in [facility] Med - [id number] Implanted:Qty: 1 on 05/02/2023 by Jean Claude Givens MD at OR [facility] Right: Brittani JAMES BARD : CHAY 03/25/2027 [id number] / / [id number] documented as of this encounter Advance Directives [...] Discussed due to patient's condition Care Teams Pattern Puncher Relationship Specialty Start Date End Date Sakshi Barros DO [address] [place] [address] [place] [address] PCP - General Internal Medicine 02/05/16 documented as of this encounter
--- OUTSIDE RECORDS SUMMARY | 2023-10-04 23:14 | External Medical Summary | Summary of Care ---
Author Name Unknown Organization [facility] Address [address] [facility] [place] [address] Phone [phone] Care Team Providers Care Seed Potato Cutter Name Role Phone Sakshi Barros Primary Care Provider [phone] Reason for Visit * Reason Onset Date Comments Test Results Biopsy 06/09/2023 Encounter Details Date Type Department Care Team (Late st Contact Info) Description 06/09/2023 Telephone Dermat[address] [place] [address] Charline Hurst PA-C [address] [place] [address] [place] [address] Test Results Biopsy Allergies No known active allergiesdocumented as of this encounter (statuses as of 06/09/2023) Medications Medication Sig Dispensed Refills Start Date [...] without long-term current use of insulin ([facility]) USE UP TO 3 TIMES A [...] type 2, goal HbA1c < 8% ([facility]) USE ONCE DAILY 100 Each 3 08/21/2022 4 Active Lantus SoloStar 100 UNIT/ML Subcutaneous Solution Pen-injectorIndicati ons:DM type 2, goal HbA1c < 8% ([facility]) INJECT 15 UNITS UNDER THE [...] Tablet 2 11/16/2022 Active OneTouch Delica Plus [id number] :Type 2 diabetes mellitus with diabetic neuropathy, without long-term current use of insulin ([facility]) Test up to four times [...] weeks and then send photos through My [employer]/My Chart at end of treatment. 40 g 1 06/04/2023 Active documented as of this encounter (statuses as of 06/09/2023) Active Problems Problem Noted Date Diagnosed Date [...] Statin History of cholecystectomy 10/15/2021 Atherosclerosis of [place] co ronary artery without angina pectoris 05/29/2021 Last Assessment & Plan: Continue statin, metoprolol, lisinopril Not on aspirin due to GI bleeding Occupational exposure to other air contaminants 11/21/2020 Hypomagnesemia 11/10/2020 Recurrent major depressive disorder, in [facility] 05/22/2020 History of [place] (myocardial infarction) 05/22/2020 Primary open-angle glaucoma, left [...] as of this encounter (statuses as of 06/09/2023) Resolved Problems Problem Noted Date Diagnosed Date [...] range 120 to 150. Last hemoglobin A1c 7.37251 continue metformin, Lantus Rectal bleeding 02/05/2016 01/10/2017 Overview: Had EGD/colonoscopy Acute blood loss anemia 02/05/201612/27 HTN, goal below 140/90 02/05/201601/10 Neuropathy 02/05/2016 01/10/2017 [place] (actinic keratosis) 01/12/201401/10 Overview: Efudex (Salina Vazquez)- 04/2014 documented as of this encounter (statuses as of 06/09/2023) Immunizations Name Administration Dates Next Due COVID-19 mRNA, LNP-s, No Pre serve, 2-Dose Series (Admetric) 04/05/2021,07/04/2020,06/13/2020 COVID-19, MRNA-LNP, 23-24, P F, 30 [...] encounter Miscellaneous Notes * Telephone Encounter - Sylvia Raya, DIE FORGER - 06/09/2023 11:26 AM EST ----- Message from Charline Hurst PA-C sent at 06/09/2023 11:22 AM EST ----- Sent a patient portal message since his home phone number would not accept our call (screening) andcell phone went right to [employer] voicemail. At least SCCIS, would like to reshave the lesion in theoffice and see if it needs Mohs. Charlnie Hurst Jan, DORIS A. Skin, R lateral cheek, shave: [...] 06/17/2023 11:30 AM EST Office Visit Cardiology [address] [place] [address] Tito House PA-C [address] [place] [address] 07/09/2023 10:30 AM EDT Office Visit Family Medicine [address] [place] [phone] Sakshi Barros[address] [place] [address] 07/21/2023 11:00 AM EDT Office Visit Interventional Pain Center, [facility] [address] [place] [address] aSige Preston PA-C [address] [place] [address] 08/29/2023 9:40 AM EDT Office Visit Podiatry [facility] [address] [place] [address] Melinda Stallworth, DPM [address] [place] [address] [place] [address] 06/16/2024 10:20 AM EST Office Visit Dermatology [address] [place] [address] Charline Hurst PA-C [address] [place] [address] [place] [address] Scheduled Procedures Name Priority Associated Diagnoses Date/Ti [...] this encounter Medical Devices Implanted Type Area Framing Mill Supervisor Device Identifier Shelf Expiration Date Model / Serial / Lot Mesh 3dmax 3.1x5.3in [facility] Med - [id number] Implanted:Qty: 1 on 05/02/2023 by Jean Claude Givens MD at OR [facility] Right: Groin CR BARD : DAVOL 03/25/2027 [id number] / / [id number] documented as of this encounter Advance Directives [...] Discussed due to patient's condition Care Teams Seed Potato Cutter Relationship Specialty Start Date End Date Sakshi Barros DO [address] [place] [address] [place] [address] PCP - General Internal Medicine 02/05/16 documented as of this encounter
--- OUTSIDE RECORDS SUMMARY | 2023-10-04 23:14 | External Medical Summary | Summary of Care ---
Author Name Unknown Organization [facility] Address [address] [facility] [place] [address] Phone [phone] Care Team Providers Care Undertaker Helper Name Role Phone Sakshi Barros DO Primary Care Provider [phone] Reason for Visit * Reason Comments Post-Op 05/02/2023, right in guinal hernia repair. Encounter Details Date Type Department Care Team (Late st Contact Info) Description 05/14/2023 11:15 AM EST Office Visit General Surgery, Health system 132 [facility] [place] [address] Jean Claude Givens MD 132 [facility] [place] [address] Postop check*; Right inguinal hernia Allergies No known active allergiesdocumented as of this encounter (statuses as of 05/14/2023) Medications Medication Sig Dispensed Refills Start Date [...] 300 Strip 1 3 10/09/19 24 Active Lisinopril 2.5 MG Oral Tablet (Prinivil) TAKE ONE TABLET BY MOUTH EVERY MORNING 90 Tablet 1 3 09/26/19 24 Active Additional Information Patient taking differently: Indications: [...] Tablet 2 3 Active OneTouch Delica Plus [id number] :Type 2 diabetes mellitus with diabetic neuropathy, [...] the morning. 200 Capsule 3 4 Active oxyCODONE-Acetaminop hen 5-325 MG Oral Tablet (Percocet) Take 1 Tablet by mouth every 6 hours as needed for Pain, Moderate. 10 Tablet 0 4 05/14/19 24 Discontinu ed(End of Procedure) documented as of this encounter (statuses as of 05/14/2023) Active Problems Problem Noted Date Diagnosed Date [...] Statin History of cholecystectomy 10/15/2021 Atherosclerosis of [place] ronary artery without angina pectoris 05/29/2021 Last Assessment & Plan: Continue statin, metoprolol, lisinopril Not on aspirin due to GI bleeding Occupational exposure to other air contaminants 11/21/2020 Hypomagnesemia 11/10/2020 Recurrent major depressive disorder, in remissio n 05/22/2020 History of [place] (myocardial infarction) [...] as of this encounter (statuses as of 05/14/2023) Resolved Problems Problem Noted Date Diagnosed Date Resolved Date Absolute anemia 02/21/2021 06/12/2022 Abnormal thyroid blood test 03/30/2020 11/21/2020 Overview: From Dr. Nuñez. Will recheck through [employer] next time he is seen. Major depressive [...] range 120 to 150. Last hemoglobin A1c 7.76164 continue metformin, Lantus Rectal bleeding 02/05/2016 01/10/2017 Overview: Had EGD/colonoscopy Acute blood loss anemia 02/05/201612/27 HTN, goal below 140/90 02/05/201601/10 Neuropathy 02/05/2016 01/10/2017 AK (actinic keratosis) 01/12/201401/10 Overview: Efudex (Salina Vazquez)- 04/2014 documented as of this encounter (statuses as of 05/14/2023) Immunizations Name Administration Dates Next Due COVID-19 mRNA, LNP-s, No Pre serve, 2-Dose Series ([email or web address]) 04/05/2021,07/04/2020,06/13/2020 COVID-19, MRNA-LNP, 23-24, P F, 30 [...] Sign Reading Time Taken Comments Blood Pressure - - Pulse - - Temperature 36 C (96.8 F) 05/14/2023 11:41 AM EST Respiratory Rate - - Oxygen Saturation - - Inhaled Oxygen Concentration - - Weight - - Height - - Body Mass Index - - documented in this encounter Progress Notes * Jean Claude Givens MD - 05/14/2023 11:54 AM EST Vahe Abe Resendez is s/p a lap right inguinal hernia repair with mesh on 05/02/2023. The patient is overall doing well. The patient is not having any pain. Fever has not been present. This patient has nowound drainage and has no wound erythema. The patient has no drains in place. Patient is slowly resuming normal activities but still refraining from heavy lifting as recommended. PE: Temperature 36 C (96.8 F). General: alert, healthy, and no distress Exam (Male): no abnormalities of scrotal contents, no hernia detected Incision site: healing well and clean, dry and intact Assessment: Vahe Resendez is doing well. We discussed continued weight lifting restrictions for afull 3-4 weeks after surgery. All questions answered. Plan: follow - up PRN Jean Claude Givens MD documented in this encounter Nursing Notes * Herminio Glass MED ASSIST - 05/14/2023 11:42 AM EST Chief Complaint Patient presents with Post-Op 05/02/2023, right inguinal hernia repair. Verified patient. Some pain 1/10 on/off. Incision is healing well. documented in this encounter Plan of Treatment Upcoming Encounters Date Type Department Care Team (Late st Contact Info) Description 06/04/2023 11:00 AM EST Office Visit Dermatology [address] [place] [address] Charline Hurst PA-C [address] [place] [address] [place] [address] 06/17/2023 11:30 AM EST Office Visit Cardiology [address] [place] [address] Tito House PA-C [address] [place] [address] 07/09/2023 10:30 AM EDT Office Visit Family Medicine [address] [place] [phone] Sakshi Barros DO [address] [place] [address] [place] [address] Scheduled Procedures Name Priority Associated Diagnoses Date/Ti [...] this encounter Medical Devices Implanted Type Area Supervisor Tubing Device Identifier Shelf Expiration Date Model / Serial / Lot Mesh 3dmax 3.1x5.3in Rht Med - [id number] Implanted:Qty: 1 on 05/02/2023 by Jean Claude Givens MD at OR [facility] Right: Groin CR BARD : DAVOL 03/25/2027 [id number] / / [id number] documented as of this encounter Visit Diagnoses Diagnosis Postop check- Primary Follow-up examination, following unspecified surgery Right inguinal hernia Inguinal hernia without mention of obstruction or gangrene, unilateral or unspecified, (not specified as recurrent) documented in this encounter Advance Directives Latest [...] Discussed due to patient's condition Care Teams Undertaker Helper Relationship Specialty Start Date End Date Sakshi Barros DO [address] [place] [address] [place] [address] PCP - General Internal Medicine 02/05/16 documented as of this encounter
--- OUTSIDE RECORDS SUMMARY | 2023-10-04 23:15 | External Medical Summary | Summary of Care ---
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 Role Phone Sakshi Barros Primary Care Provider [phone] Reason for Visit * Auth/Cert Specialty Diagnoses / Procedures Referred By Arabella benavides Referred To Contact Diagnoses Right inguinal hernia Right inguinal hernia [K40.90] Procedures LAPAROSCOPY; REPAIR INITIAL INGUINAL HERNIA LAPAROSCOPIC REPAIR INGUINAL HERNIA INITIAL Referral ID Status Reason Start Date Expiration Date Visits Re quested Visits Authorized [id number] Encounter Details Date Type Department Care Team (Latest Contact Info) Description 05/02/2023 6:18 AM EST - 05/02/2023 10:28 AM EST Hospital Encounter OR [facility], Operating Room [facility] [address] [facility] [place] [id number] Jean Claude Givens MD [address] [place] [id number] Discharge Disposition: Home - Self Care Allergies No known active allergiesdocumented as of this encounter (statuses as of 05/02/2023) Medications Medication Sig Dispensed Refills Start Date [...] type 2, goal HbA1c < 8% ([facility]) USE ONCE DAILY 100 Each 3 3 08/21/19 24 Active Lantus SoloStar 100 UNIT/ML Subcutaneous Solution Pen-injectorIndicati ons:DM type 2, goal HbA1c < 8% ([facility]) INJECT 15 UNITS UNDER THE SKIN DAILY [...] Tablet 2 3 Active OneTouch Delica Plus [id number] :Type 2 diabetes mellitus with diabetic neuropathy, without long-term current use of insulin ([facility]) Test up to four times daily 400 [...] for Pain, Moderate. 10 Tablet 0 4 Active Tamsulosin HCl 0.4 MG Oral Capsule (Flomax)Indications: BPH without obstruction/lower urinary tract symptoms,Ureteral stone Take 2 Capsules by mouth in the morning. 200 Capsule 1 3 04/28/19 24 Discontinu ed(Refill) documented as of this encounter (statuses as of 05/02/2023) Active Problems Problem Noted Date Diagnosed Date Chronic right shoulder pain 08/05/2022 Last Assessment & Plan: Has an appointment to go see Dr. Paris, his orthopedic surgeon, next week -continue ice [...] Statin History of cholecystectomy 10/15/2021 Atherosclerosis of [place] co ronary artery without angina pectoris 05/29/2021 Last Assessment & Plan: Continue statin, metoprolol, lisinopril Not on aspirin due to GI bleeding Occupational exposure to other air contaminants 11/21/2020 Hypomagnesemia 11/10/2020 Recurrent major depressive disorder, in remissio n 05/22/2020 History of [place] (myocardial infarction) [...] as of this encounter (statuses as of 05/02/2023) Resolved Problems Problem Noted Date Diagnosed Date Resolved Date Absolute anemia 02/21/2021 06/12/2022 Abnormal thyroid blood test 03/30/2020 11/21/2020 Overview: From Dr. Nñuez. Will recheck through [facility] next time he is seen. Major depressive [...] range 120 to 150. Last hemoglobin A1c [id number] continue metformin, Lantus Rectal bleeding 02/05/2016 01/10/2017 Overview: Had EGD/colonoscopy Acute blood loss anemia 02/05/201612/27 HTN, goal below 140/90 02/05/201601/10 Neuropathy 02/05/2016 01/10/2017 AK (actinic keratosis) 01/12/201401/10 Overview: Efudex (Salina Vazquez)- 04/2014 documented as of this encounter (statuses as of 05/02/2023) Immunizations Name Administration Dates Next Due COVID-19 mRNA, LNP-s, No Pre serve, 2-Dose Series ([employer]) 04/05/2021,07/04/2020,06/13/2020 COVID-19, MRNA-LNP, 23-24, P F, 30 [...] Sign Reading Time Taken Comments Blood Pressure 123/40 05/02/2023 9:45 AM EST Pulse 60 05/02/2023 9:45 AM EST Temperature 36.3 C (97.4 F) 05/02/2023 9:45 AM ES T Respiratory Rate 16 05/02/2023 9:45 AM EST Oxygen Saturation 97% 05/02/2023 9:45 AM EST Inhaled Oxygen Concentration - - Weight 84.4 kg (186 lb) 05/02/2023 6:48 AM EST Height 188 cm (6' 2.02") 05/02/2023 6:48 AM EST Body Mass Index 23.87 05/02/2023 6:48 AM EST documented in this encounter Discharge Instructions * Discharge Instr - AVS* Jean Claude Givens MD - 05/02/2023 7:51 AM EST Discharge Date: 05/02/2023 The information below provides you with the instructions and the list of medications you need to betaking following discharge from the hospital. If you have any questions, please ask before leaving.Please carry this letter with you when you see your doctor in the clinic. If you have questions, you can reach us at the numbers above. Post Anesthesia Instructions: 1. Do not drive today. 2. Resume driving when surgeon permits, in 3 day(s) as long as not taking narcotics. 3. Do not make important decisions or sign legal documents today. 4. Call surgeon for: Temperature evaluation greater than 101.5 degrees Uncontrollable pain Excessive Bleeding Persistent Nausea and vomiting Medication intolerance (nausea, vomiting, or rash) 5. For nausea and vomiting use only clear liquids such as: tea, soda, bouillon until nausea subsides, then gradually increase diet as tolerated. Don't take narcotics on empty stomach, this can cause worsening of your nausea. 6. If you have any concerns or questions, call your surgeon's office, . If the physician is unavailable and it is an emergency, call [phone] or go to the nearest emergency room. Instructions for: Inguinal Hernia, Laparoscopic Hernia or Cholecystectomy, Umbilical or Ventral Hernia INCISION CARE: If present, remove any outer dressing(s) in 36 hours. The incision(s) may be sealed with sutures/sean, a skin adhesive (Dermabond), or covered with white adhesive tapes known as steri-strips. Either way there is no need to cover up the incisions again with gauze unless desired or there is drainage. TO PREVENT SWELLING: Swelling and bruising around incisions is common. If groin surgery was performed, the swelling and bruising can involve the scrotum and penis/labial area. Do not be alarmed. It will resolve on its own with time. Apply an ice pack to the incision (20 min on, 20 min off) for the first 24-48 hours to help with pain and swelling. SHOWER: You may shower 36 hours after surgery and get the incision(s) or steri-strips wet with soapy water and gently pat them dry. If the steri-strips come off in the shower, do not become concerned. If they are still in place 10 days after surgery, you may remove them. PAIN MEDICATION: You will usually be given a prescription for a narcotic pain medication (usually Vicodin or Percocet). Options for non-constipating pain medications include products that include ibuprofen or Tylenol. Avoid taking narcotic pain medication on an empty stomach as this makes more prone to nausea and vomiting, which is a side effect of these medications. BOWEL MEDICATION: To combat constipation, you may take over the counter laxatives, fiber therapy, or prune juice. Drink plenty of fluids. COMMON COMPLAINTS: Shoulder pain and gas pains from the carbon dioxide used during the procedure is common with laparoscopic preocedures. Your body absorbs this gas naturally over a 48-72 hour period. Tylenol (Acetaminophen) or Ibuprofen (Motrin) is usually sufficient to relieve this discomfort. If you have had a laparoscopic ventral hernia repair there will be a roll of gauze which should remain over your hernia site anchored with the abdominal binder. Try to keep this in place as much as possible before your first post-op clinic visit; you may take it off temporarily for baths or showers. URINATION: If you cannot urinate, sit in a warm bath then try again. Activity : Rest today. Do not do any heavy lifting (more than 20lbs pounds) or any vigorous exercise for 3-4 week(s). Return to School or Work: May return to work/school as tolerated on light duty; 3-4 week(s) to return without restrictions. Diet: Resume previous diet Follow-up Visit with: When: in 2 weeks Discharged To: Home documented in this encounter Progress Notes * Jean Claude Givens MD - 05/02/2023 7:51 AM EST [facility] [place] [address] [facility] [place] [id number] OUTPATIENT SURGERY DISCHARGE SUMMARY NOTE Name: Vahe Resendez Location: OR [facility]/OR Date: 05/02/2023 Time: 7:51 AM Surgery Date: 05/02/2023 Procedure: Procedure(s): LAPAROSCOPIC REPAIR INGUINAL HERNIA INITIAL Right Surgeon: Surgeon(s): Jean Claude Givens MD Discharge Diagnosis: right inguinal hernia After examination of this patient, I have determined he is ready for discharge to home when the patient meets criteria. Discharge instructions were given to the patient. documented in this encounter H&P Notes * Jean Claude Givens MD - 05/02/2023 7:30 AM EST No changes B CTA RRR : R IH Source Note - Jean Claude Givens MD - 04/02/2023 11:16 AM EST CC- right groin bulge Chief Complaint Patient presents with NEW PATIENT Unilateral inguinal hernia. Ref: FLOR PARKINSON[[id number]] [address] [facility], [place] [address] (office) [phone] (fax) HPI.: Vahe Resendez is a 78 year old male seen in consultation for a right inguinal hernia. They have had mild symptoms present for weeks duration. Their symptomsdid not start at work. The pain is dull and intermittent. Their lump is reducible. He has no Sxs of chronic constipation,chronic cough,difficulty urinating. Past Medical History Past Medical History: Diagnosis Date Acute blood loss anemia AK (actinic keratosis) 01/12/2014 Efudex (Salina Vazquez)- 04/2014 Anxiety 02/05/2016 Basal cell carcinoma of nose 07/09/2016 BPH without obstruction/lower urinary tract symptoms 02/05/2016 Heartburn 02/05/2016 Hypertension Mixed hyperlipidemia 02/05/2016 Rectal bleeding 02/05/2016 Had EGD/colonoscopy Restless legs syndrome 02/05/2016 Type 2 diabetes mellitus with hemoglobin A1c goal of less than 7.0% ([facility]) 02/05/2016 Past Surgical History Past Surgical History: Procedure Laterality Date ABD/PELVIS CT W/O IV AND W/O PO CONTRAST 01/04/2016 [facility]-showed multiple calculi ARTHROPLASTY KNEE TOTAL 2014 Right COLONOSCOPY 01/19/2016 [facility] [place] COLONOSCOPY, DIAGNOSTIC (RECTUM) 02/17/2018 diverticulosis, repeat 10 yrs/COLONOSCOPY FLEXIBLE PROXIMAL DIAGNOSTIC performed by Julien Conway DO at ENDOSCOPY [facility] COLONOSCOPY, DIAGNOSTIC (RECTUM) 01/30/2022 diverticulosis in entire colon, internal hemorrhoids / no specimens collected / COLONOSCOPY FLEXIBLE PROXIMAL DIAGNOSTIC performed by Phillip Shore MD at ENDOSCOPY [facility] COLONOSCOPY, DIAGNOSTIC (RECTUM) 01/19/2021 diverticulosis / INPT [facility] EGD, FLEXIBLE, DIAGNOSTIC N/A 07/22/2017 ESOPHAGOGASTRODUODENOSCOPY (EGD), FLEXIBLE, TRANSORAL, DIAGNOSTIC performed by Khoa Mejia MD atENDOSCOPY [facility] EGD, FLEXIBLE, DIAGNOSTIC N/A 10/22/2017 ESOPHAGOGASTRODUODENOSCOPY (EGD), FLEXIBLE, TRANSORAL, DIAGNOSTIC performed by Khoa Mejia MD atENDOSCOPY [facility] EGD, FLEXIBLE, DIAGNOSTIC N/A 10/13/2018 mild inflammatory changes, hiatal hernia, repeat 1 yr/ESOPHAGOGASTRODUODENOSCOPY (EGD), FLEXIBLE, TRANSORAL, DIAGNOSTIC performed by Julien Conway DO at ENDOSCOPY [facility] EGD, FLEXIBLE, DIAGNOSTIC 12/20/2019 inflammatory changes on bx, repeat 1.5 yrs / ESOPHAGOGASTRODUODENOSCOPY (EGD), FLEXIBLE, TRANSORAL,DIAGNOSTIC performed by Julien Conway DO at ENDOSCOPY [facility] EGD, FLEXIBLE, DIAGNOSTIC 09/05/2021 z-line irregular at 41 cm from insciors, gastritis / biopsies from the esophagus showed mild inflammation ESOPHAGOGASTRODUODENOSCOPY (EGD), FLEXIBLE, TRANSORAL, DIAGNOSTIC performed by Julien Conway DO at ENDOSCOPY [facility] EGD, FLEXIBLE, DIAGNOSTIC 01/30/2022 HH, z-line irregular / biopsies shows mild to moderate inflammation / ESOPHAGOGASTRODUODENOSCOPY (EGD), FLEXIBLE, TRANSORAL, DIAGNOSTIC performed by Phillip Shore MD at ENDOSCOPY [facility] EGD, FLEXIBLE, DIAGNOSTIC 03/04/2023 biopsies normal/recall 1 year/ESOPHAGOGASTRODUODENOSCOPY (EGD), FLEXIBLE, TRANSORAL, DIAGNOSTIC performed by Hayder Vargas MD at ENDOSCOPY [facility] EGD, FLEXIBLE, W/BIOPSY 01/19/2016 [facility] EGD, W/ENDOSCOPIC US 05/26/2017 [place] / ESOPHAGOGASTRODUODENOSCOPY (EGD), FLEXIBLE, TRANSORAL, ENDOSCOPIC ULTRASOUND performed by Julien Conway DO at ENDOSCOPY [facility] EGD, W/ENDOSCOPIC US N/A 02/19/2022 dilation CBD/multiple stones CBD/ESOPHAGOGASTRODUODENOSCOPY (EGD), FLEXIBLE, TRANSORAL, ENDOSCOPIC ULTRASOUND performed by Julien Conway DO at OR [facility] ERCP, DIAGNOSTIC, SPECIMEN COLLECTION N/A 02/19/2022 benign biliary papillary stenosis/stone and sludge/choledocholithiasis, complete removal/ENDOSCOPICRETROGRADE CHOLANGIOPANCREATOGRAPHY (ERCP) DIAGNOSTIC performed by Julien Conway DO at OR [facility] INCISION OF EYE Unsure which eye-Metal removed and needed suture per patient INJECT DX/THER SUBSTANCE INTERLAMINAR LUMBAR/SACRAL W IMAGE GUIDE 05/01/2022 INJECTION SPINE LUMBAR OR SACRAL performed by Ezequiel Portillo DO at OR [facility] INJECT DX/THER SUBSTANCE INTERLAMINAR LUMBAR/SACRAL W IMAGE GUIDE 10/23/2022 INJECTION SPINE LUMBAR OR SACRAL performed by Ezequiel Portillo DO at OR [facility] LAPAROSCOPY; CHOLECYSTECTOMY 10/07/2021 done through ED at [facility] by Dr Jean Claude Givens LASERING OF SECONDARY CATARACT LUMBAR SPINE FUSION, POST INTERBODY 1990 Discectomy MISCELLANEOUS ORDER ([facility] ONLY) Left 02/01/2019 excision LLL lesion and biopsy, Dr. Wilson [place] [facility] LUNG OTHER THAN PNEUMONECTOMY 1 LOBE LOBECT Left 04/24/2022 Post Mohs repair OS, Dr. Wilson RECONSTRUCT/REPLACE SHOULDER JOINT 1997, 2012 Bilateral shoulders REMOVAL OF TONSILS, UNDER AGE 12 REMOVE CATARACT, INSERT LENS PROSTH Bilateral [place] Medications: Current Outpatient Medications Medication Sig Dispense Refill [...] THREE TIMES A DAY 300 Strip 1 Lisinopril 2.5 MG Oral Tablet (Prinivil) TAKE ONE TABLET BY MOUTH EVERY MORNING (Patient taking differently: No sig reported) 90 Tablet 1 Rosuvastatin Calcium 40 MG Oral Tablet [...] WELL AFTER EACH USE 180 Each 1 Gabapentin 300 MG Oral Capsule (Neurontin) TAKE TWO CAPSULES BY MOUTH TWICE A DAY -- IN THE MORNINGAND BEFORE BEDTIME 400 Capsule 1 Insulin Pen Needle 32G X 4 MM USE ONCE DAILY 100 Each 3 Lantus SoloStar 100 UNIT/ML Subcutaneous Solution Pen-injector INJECT 15 UNITS UNDER THE SKIN DAILY15 mL 3 Metoprolol Succinate ER 25 MG Oral Tablet Extended Release 24 Hour (toPROL XL) TAKE ONE-HALF TABLETBY MOUTH IN THE MORNING 30 Tablet 5 Pramipexole Dihydrochloride 0.25 MG Oral Tablet (Mirapex) TAKE ONE TABLET BY MOUTH AT BEDTIME 100 Tablet 3 Sertraline HCl 50 MG Oral Tablet (Zoloft) TAKE 1 TABLET BY MOUTH EVERYDAY AT BEDTIME 90 Tablet 2 OneTouch Delica Plus [id number] Test up to four times daily 400 Each 1 Aspirin 81 MG Oral Tablet Delayed Release (Aspirin 81) Take 1 Tablet by mouth in the morning. Metamucil Fiber 51.7 % Oral Packet (Psyllium) Take by mouth. traMADol HCl 50 MG Oral Tablet (Ultram) Take 1 Tablet by mouth every 6 hours as needed for severe pain. 60 Tablet 0 Tamsulosin HCl 0.4 MG Oral Capsule (Flomax) Take 2 Capsules by mouth in the morning. 200 Capsule 1 Latanoprost 0.005 % Ophthalmic Solution (Xalatan) INSTILL ONE DROP INTO BOTH EYES EVERY NIGHT 7.5 mL 3 No current facility-administered medications for this visit. Allergies: Allergies as of 04/02/2023 (No Known Allergies) Family History Family History Problem Relation Age of Onset Heart Disorder Mother 68 Heart Disorder Father 68 Cancer Sister Cancer Brother Glaucoma None Social History Social History Socioeconomic History Marital status: Spouse name: Not on file Number of children: Not on file Years of education: Not on file Highest education level: Not on file Occupational History Not on file Tobacco Use Smoking status: Former Packs/day: 2.00 Years: 32.00 Additional pack years: 0.00 Total pack years: 64.00 Types: Cigarettes Quit date: 11/26/1989 Years since quittin.3 Smokeless tobacco: Never Vaping Use Vaping Use: Never used Substance and Sexual Activity Alcohol use: Yes Comment: occ. 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 Social Determinants of Health Financial Resource Strain: [...] on file Housing Stability: Not on file ROS: GEN: no weight loss, fever, fatigue HEENT: no changes in vision or hearing, no sinus problems, no sore throat, no hoarseness RESPIRATORY: no cough, wheezing, SOB or change in breathing CARDIOVASCULAR: no exertional chest pain, dyspnea, palpitations GI: no melena or hemetemesis, no change in bowel habits, no nausea or vomiting : no dysuria, hematuria, frequency MUSCULOSKELETAL: no change in joint pains, no new arthritis PSYCHIATRIC: no significant anxiety or depression, unchanged sleep pattern HEME: no bleeding tendency, no clotting tendency NEURO: no significant headache, no seizures , no tremors SKIN: no new rashes, no itching Physical Exam: Blood pressure 130/58, pulse 84, weight 85.9 kg (189 lb 6.4 oz). Constitutional: alert, healthy, well nourished Head: normocephalic, atraumatic Eyes: conjunctiva non-injected, sclera white Ears: pinna normal shape and color Nose: no purulent discharge Mouth: lips, mucosa, and tongue normal Neck: supple, no adenopathy Lungs: clear to auscultation, breath sounds are equal and symmetric Heart: regular rate & rhythm and no murmur, gallops or rubs Abdomen: soft, non-tender, normal bowel sounds, no hernias Back: normal curvature, normal ROM Extremities: no joint deformities, effusion, or inflammation, no edema, no skin discoloration Neuro: alert, motor normal Skin: no obvious rashes or significant lesions Exam: no penile abnormality, no urethral discharge, no abnormalities of scrotal contents; reducible right inguinal hernia; left negative Imaging:none IMP: Vahe Resendez is a 78 year old male with a right inguinal hernia which is currently symptomatic. For this reason, I have recommended that the patient consider a hernia repair. This could be performed in open or laparoscopic approach. We reviewed that for hernias, laparascopic surgery is useful in bilateral, recurrent hernias, when associated with umbilical hernia, or where there is a benefit seen in shorter recovery time. Risks of laparascopic surgery including a slightly higher recurrence rate, slightly higher chance of nerve injury and possibility of injury to bowel or blood vessels were also discussed. I typically recommend an open procedure for initial inguinal hernias that would be difficult laparoscopically due to previous surgeries or when recovery time is not an issue. I discussed the surgery in detail and the complications related to the surgery and the anesthesia. Risks include, but are not limited to: recurrence of the hernia, persistent pain in the groin from injury to or entrapment of groin nerves, numbness, seroma formation, bleeding, infection, a significant risk of urinary retention in males with a bilateral repair and mesh infection requiring mesh removal. Patient understands these risks. Expected same day nature of surgery and postoperative recovery period reviewed. Activity restrictions postoperatively to include no heavy lifting or high impact activity for four to six weeks reviewed. All questions were answered to the patient's satisfaction and consent was signed. We also reviewed the signs and symptoms of incarceration and the patient was instructed to go directly to the emergency room should this occur. PLAN: Laparoscopic right inguinal hernia possible left at [facility] on 05/02/2023. Jean Claude Givens MD 04/02/2023 11:13 AM documented in this encounter Nursing Notes * Hilda Verduzco RN - 05/02/2023 10:20 AM EST Vs stable. Reports pain at 3/10 on pain scale, tolerable. Denies nausea and tolerating PO intake. Dressing dry and intact. Verbalized understanding of all discharge directions. Patient stable for discharge to home. Taken via wheelchair to private auto with staff presence. * Hilda Verduzco RN - 05/02/2023 9:30 AM EST Patient awake and oriented. Tolerating PO ice chips without nausea. Pain level is tolerable for patient 3/10. Vital signs stable. Ready for discharge from PACU 1. Will maintain care of patient in current location for PACU II status. * Hilda Verduzco RN - 05/02/2023 8:58 AM EST Patient received to pacu 1 status post laparoscopic right inquinal hernia repair with mesh. Patient awake/tired. denies pain. denies nausea. Respirations are even and unlabored on 6lpm via simple face mask. Lungs clear. NSR in the 60s on monitor. Abdomen soft and non distended. Dressings to abdomen are clean, dry and intact, ice applied. Vital signs stable. documented in this encounter OR Notes * OR Surgeon - Jean Claude Givens MD - 05/02/2023 7:46 AM EST Operative note Date of procedure: 05/02/2023 Pre-op diagnosis: right inguinal hernia Post-op diagnosis: right direct inguinal hernia Procedure: Laparoscopic right inguinal hernia repair with mesh Surgeon: Jean Claude Givens MD Bottle Feeder: none Anesthesia: GETA w/marcaine EBL: 5 cc Drains: none Complications: none Specimens: none Findings: large right direct inguinal hernia; left negative Indication for procedure: This patient presents with a symptomatic right inguinal hernia and they desire repair. They understand the risks of recurrence, nerve injury, chronic pain, loss of testicle,bowel or blood vessel injury, open procedure, and wound problems including infection and dehisence.Consent has been signed. The patient received 2 gm of ancef preoperatively. After induction of general endotracheal anesthesia, their abdomen and suprapubic areas were prepped and draped under sterile conditions. A transverse supraumbilical incision was made and a veress needle was then placed into the peritoneal cavity while applying upward traction on the abdominal wall with towel clamps. Once the needle was confirmed to be in the proper space insufflation was begun to achieve an intraabdominal pressure of 10-12mmHg.The veress needle was removed and a optically viewed blunt 12mm trocar and port was inserted directly viewing the layers of the abdominal wall and applying gentle upward traction with the towel clamps into the peritoneal cavity. A good diagnostic laparoscopic view was performed and the above findings were noted. A 11 mm port and trocar was placed in the patient's RLQ and a 5 mm port and trocar was then placed in the LLQ, both under direct visualization. A laparoscopic endoshears was used to open the peritoneum above the hernia from the medial umbilical ligament then laterally along the anterior abdominal wall. The inferior flap of the peritoneum was then dissected free of the spermatic cordtaking care to not injure its contents, this was opened medially to expose the pubic tubercle and laterally to facilitate easy placement of the mesh. Once the inferior flap was adequately mobilized the superior flap of peritoneum was likewise properly mobilized with both sharp and blunt dissection.The mesh was placed into the inguinal floor preperitoneally and secured with a multi-feed stapler, taking care not to place sean below the inguinal ligament laterally. The mesh was then re-peritonalized with stapler, no mesh was exposed. The ports were then removed and the pneumoperitoneum was de compressed. Vicryl sutures were then used to close the fascia, SQ, and skin. Steristrips with mastisol were placed to reinforce the closures. Sterile dressings were applied. The patient was awakened from anesthesia and taken to recovery in stable condition. Jean Claude Givens MD 05/02/2023 8:57 AM documented in this encounter Plan of Treatment Upcoming Encounters Date Type Department Care Team (Late st Contact Info) Description 05/14/2023 11:15 AM EST Office Visit General Surgery, [place] [facility] [address] [place] [address] Jean Claude Givens MD [address] [place] [address] 06/04/2023 11:00 AM EST Office Visit Dermatology [address] [place] [address] Charline Hurst PA-C [address] [place] [address] [place] [address] 06/17/2023 11:30 AM EST Office Visit Cardiology [address] [place] [address] Tito House PA-C [address] [place] [address] 07/09/2023 10:30 AM EDT Office Visit Family Medicine [address] [place] [phone] [place] [address] Scheduled Orders Name Type Priority Associated Diagnoses Orde r Schedule GLUCOSE METER, POINT OF CARE (COMMUNICATION ORDER) Point of Care Testing Routine As Needed until discontinued starting 05/02/2023 Scheduled Procedures Name Priority Associated Diagnoses Date/Ti pr LAPAROSCOPIC REPAIR INGUINAL HERNIA INITIAL Right inguinal hernia 05/02/2023 7:12 AM EST ESOPHAGOGASTRODUODENOSCOPY ( EGD), FLEXIBLE, TRANSORAL, DIAGNOSTIC Recall [...] this encounter Medical Devices Implanted Type Area Shell Sieve Operator Device Identifier Shelf Expiration Date Model / Serial / Lot Mesh 3dmax 3.1x5.3in t Med - [id number] Implanted:Qty: 1 on 05/02/2023 by Jean Claude Givens MD at OR [facility] Right: Groin CR BARD : DAVOL 03/25/2027 [id number] / / [id number] documented as of this encounter Procedures Procedure Name Priority Date/Time Associated Diagnosis Comments GLUCOSE METER, POINT OF CARE [facility] 05/02/2023 9:14 AM EST GLUCOSE METER, POINT OF CARE [facility] 05/02/2023 6:51 AM EST documented in this encounter Results * (ABNORMAL) GLUCOSE METER, POINT OF CARE (05/02/2023 9:14 AM EST) Glucose Meter 160(H) 70 - 120 mg/dL 05/02/2023 9:16 AM EST LAB[facility] [place] 57 Blood Whole blood specimen / Unknown 05/02/2023 9:14 AM EST 05/02/2023 9:16 AM EST Jean Claude Givens MD LAB POINT O F CARE TEST DOCKED DEVICE UNSOLICITED RESULTS LAB[facility] [place] 57 [address] [facility] [place] [address] * (ABNORMAL) GLUCOSE METER, POINT OF CARE (05/02/2023 6:51 AM EST) Glucose Meter 146(H) 70 - 120 mg/dL 05/02/2023 7:04 AM EST LABORATORY [place] 57-00 Blood Whole blood specimen / Unknown 05/02/2023 6:51 AM EST 05/02/2023 7:04 AM EST Jean Claude Givens MD LAB POINT O F CARE TEST DOCKED DEVICE UNSOLICITED RESULTS LABORATORY [place]ARTINEZ 57 [facility] [place] [address] documented in this encounter Visit Diagnoses Diagnosis DM type 2, goal HbA1c < 8% (HCC) documented in this encounter Administered Medications Inactive Administered Medications - up to 3 most recent administrations Medication Order MAR Action Action Date Dose Rate Site Acetaminophen (Tylenol) tab 650 mg 650 mg, Oral, PRN Pain, Mild, Starting on Fri05/02/23 at 0943, Until Fri05/02/23 at 1428, For 1 dose, Maximum of 4 grams (4000 mg) per day., Post-op ceFAZolin in dextrose (Ancef) ivpb 2 g 2 g, IV Piggyback, PREOP, 1 dose, First dose on Fri05/02/23 at 0815, Administer 60 minutes prior to skin incision, Pre-Op New Bag 05/02/2023 7:48 AM EST 2 g 100 mL/hr dexAMETHasone Sodium Phosphate (Decadron) 4 MG/ML inj 4 mg 4 mg, IV Push, PRN Nausea, Starting on Fri05/02/23 at 0906, Until Fri05/02/23 at 1428, For 1 dose, PROTECT FROM LIGHT, PACU fentaNYL (PF) inj 25 mcg 25 mcg, IV Push, PRN Pain, Severe, Starting on Fri05/02/23 at 0906, Until Fri05/02/23 at 1428, For 6 doses, When given IV Push its recommended that the dose be given over 3 to 5 minutes., PACU isolyte-S pH 7.4 infusion Intravenous, at 100 mL/hr, Plasma-LYTE 148, isolyte-S, and isolyte-S pH 7.4 are considered equivalent - including for MAR barcode scanning., CONTINUOUS, Starting on Fri05/02/23 at 0715, Until Fri05/02/23 at 1428, Pre-Op Restarted 05/02/2023 8:00 AM EST Continue from Pre-Op 05/02/2023 7:52 AM EST 100 mL/hr New Bag 05/02/2023 6:57 AM EST 100 mL/hr ondansetron (Zofran) inj 4 mg 4 mg, IV Push, PRN Nausea, Starting on Fri05/02/23 at 0906, Until Fri05/02/23 at 1428, For 1 dose, PACU documented in this encounter Active and Recently Administered Medications Times are shown in EST. Scheduled Medication Order 04/30/2023 05/01/2023 05/02/2023 Acetaminophen (Tylenol) tab 975 mg 975 mg, Oral, PREOP, First dose on Fri05/02/23 at 0815, Last dose on Fri05/02/23 at 0815, For 1 dose, Maximum 4 g acetaminophen/day. Avoid in patients with severe hepatic impairment or severe active liver disease. Administer 60 minutes prior to OR., Pre-Op 0815 (Due) ceFAZolin in dextrose (Ancef) ivpb 2 g (COMPLETED) 2 g, IV Piggyback, PREOP, 1 dose, First dose on Fri05/02/23 at 0815, Administer 60 minutes prior to skin incision, Pre-Op 0748 (New Bag - Prov ider: Shalonda Freeman RN) Continuous Medication Order 04/30/2023 05/01/2023 05/02/2023 isolyte-S pH 7.4 infusion Intravenous, at 100 mL/hr, Plasma-LYTE 148, isolyte-S, and isolyte-S pH 7.4 are considered equivalent - including for MAR barcode scanning., CONTINUOUS, Starting on Fri05/02/23 at 0715, Until Fri05/02/23 at 1428, Pre-Op 0657 (New Bag - Prov ider: Shalonda Freeman RN)0752 (Continue from Pre-Op - Provider: QUYNH Yuen)0759 (Paused - Provider: QUYNH Yuen - Comment: Switch to gravity)0800 (Restarted - Provider: QUYNH Yuen)0815 (Anes Intra-Op Fluid - Provider: QUYNH Yuen)0847 (Anes Intra-Op Fluid - Provider: QUYNH Yuen)0858 (Stopped - Provider: Ben Barlow CRNA) PRN Medication Order 04/30/2023 05/01/2023 05/02/2023 Acetaminophen (Tylenol) tab 650 mg 650 mg, Oral, PRN Pain, Mild, Starting on Fri05/02/23 at 0943, Until Fri05/02/23 at 1428, For 1 dose, Maximum of 4 grams (4000 mg) per day., Post-op BUPivacaine-EPINEPHrine (Sensorcaine W/ Epi) 0.5% -1:[id number] inj (CANCELED) ONCE PRN INTRA PROCEDURE, Starting on Fri05/02/23 at 0821, Until Fri05/02/23 at 0848, Intra-Op 0842 (Given - Provid er: Jean Claude Givens MD - Comment: port sites) dexAMETHasone Sodium Phosphate (Decadron) 4 MG/ML inj 4 mg 4 mg, IV Push, PRN Nausea, Starting on Fri05/02/23 at 0906, Until Fri05/02/23 at 1428, For 1 dose, PROTECT FROM LIGHT, PACU fentaNYL (PF) inj 25 mcg 25 mcg, IV Push, PRN Pain, Severe, Starting on Fri05/02/23 at 0906, Until 05/02/23 at 1428, For 6 doses, When given IV Push its recommended that the dose be given over 3 to 5 minutes., PACU ondansetron (Zofran) inj 4 mg 4 mg, IV Push, PRN Nausea, Starting on Fri05/02/23 at 0906, Until Fri05/02/23 at 1428, For 1 dose, PACU documented in this encounter Advance Directives Latest [...] due to patient's condition Care Teams Textile Coating Machine Operator Relationship Specialty Start Date End Date Sakshi Barros DO [address] [place] [address] [place] [address] PCP - General Internal Medicine 02/05/16 documented as of this encounter
--- OUTSIDE RECORDS SUMMARY | 2023-10-04 23:15 | External Medical Summary | Summary of Care ---
Author Name Unknown Organization [facility] Address [address] [facility] [place] [address] Phone [phone] Care Team Providers Care Switchboard Operator Supervisor Name Role Phone Cindy Sinclair DO Primary Care Provider + [phone] Reason for Visit * Reason Onset Date Comments Medication Refill 04/28/2023 Encounter Details Date Type Department Care Team (Late st Contact Info) Description 04/28/2023 Refill Family Medicine [address] [place] [phone] Cindy Sinclair DO [address] [place] [address] [place] [address] BPH without obstruction/lower urinary tract symptoms; Ureteral stone Allergies No known active allergiesdocumented as of this encounter (statuses as of 04/30/2023) Medications Medication Sig Dispensed Refills Start Date [...] < 8% ([facility]) INJECT 15 UNITS UNDER THE SKIN [...] Tablet 2 3 Active OneTouch Delica Plus [id number] :Type 2 diabetes mellitus with diabetic neuropathy, [...] the morning. 200 Capsule 3 4 Active Tamsulosin HCl 0.4 MG Oral Capsule (Flomax)Indications: BPH without obstruction/lower urinary tract symptoms,Ureteral stone Take 2 Capsules by mouth in the morning. 200 Capsule 1 3 04/28/19 24 Discontinu ed(Refill) documented as of this encounter (statuses as of 04/30/2023) Active Problems Problem Noted Date Diagnosed Date [...] Statin History of cholecystectomy 10/15/2021 Atherosclerosis of [place] ronary artery without angina pectoris 05/29/2021 Last Assessment & Plan: Continue statin, metoprolol, lisinopril Not on aspirin due to GI bleeding Occupational exposure to other air contaminants 11/21/2020 Hypomagnesemia 11/10/2020 Recurrent major depressive disorder, in [facility] n 05/22/2020 History of IA (myocardial infarction) [...] as of this encounter (statuses as of 04/30/2023) Resolved Problems Problem Noted Date Diagnosed Date Resolved Date Absolute anemia 02/21/2021 06/12/2022 Abnormal thyroid blood test 03/30/2020 11/21/2020 Overview: From Dr. Nuñez. Will recheck through [employer] next time he is seen. Major depressive [...] range 120 to 150. Last hemoglobin A1c 7.59697 continue metformin, Lantus Rectal bleeding 02/05/2016 01/10/2017 Overview: Had EGD/colonoscopy Acute blood loss anemia 02/05/201612/27 HTN, goal below 140/90 02/05/201601/10 Neuropathy 02/05/2016 01/10/2017 AK (actinic keratosis) 01/12/201401/10 Overview: Efudex (Salina Vazquez)- 04/2014 documented as of this encounter (statuses as of 04/30/2023) Immunizations Name Administration Dates Next Due COVID-19 mRNA, LNP-s, No Pre serve, 2-Dose Series ([employer]) 04/05/2021,07/04/2020,06/13/2020 COVID-19, MRNA-LNP, 23-24, P F, 30 [...] encounter Miscellaneous Notes * Telephone Encounter - Claire Carver RPh - 04/30/2023 6:03 AM ESTSigned Prescriptions: Disp Refills Tamsulosin HCl 0.4 MG Oral Capsule (Flomax)200 Ca*3 Sig: Take 2 Capsules by mouth in the morning.Authorizing Provider: CINDY SINCLAIR User: CLAIRE CARVER documented in this encounter Plan of Treatment Upcoming Encounters Date Type Department Care Team (Latest Contact Info) Description 05/02/2023 7:45 AM EST Hospital Encounter OR [facility], Operating Room [facility] [address] [place] [phone] Jean Claude Givens MD [address] [place] [address] 05/02/2023 7:45 AM EST - 05/02/2023 8:54 AM EST Surgery OR [facility], Operating Room [facility] [address] [place] [phone] Jean Claude Givens MD [address] [place] [address] LAPAROSCOPIC REPAIR INGUINAL HERNIA INITIAL 05/14/2023 11:15 AM EST Office Visit General Surgery, [facility] [address] [place] [address] Jean Claude Givens MD [address] [place] [address] 06/04/2023 11:00 AM EST Office Visit Dermatology [address] [place] [address] Charline Hurst PA-C [address] [place] [address] [place] [address] 06/17/2023 11:30 AM EST Office Visit Cardiology [address] [place] [address] Tito House PA-C [address] [place] [address] 07/09/2023 10:30 AM EDT Office Visit Family Medicine [address] [place] [phone] Cindy Sinclair DO [address] [place] [address] [place] [address] Scheduled Procedures Name Priority Associated Diagnoses Date/Ti ks LAPAROSCOPIC REPAIR INGUINAL HERNIA INITIAL Right inguinal hernia 05/02/2023 7:45 AM EST ESOPHAGOGASTRODUODENOSCOPY ( EGD), FLEXIBLE, TRANSORAL, [...] ASSESSMENT COMPLETED IN PAST YEAR FOR COPD 03/04/2024 03/04/2023 Alberto's Esophagus Surveilance 03/04/2026 03/04/2023, 03/04/2023, 01/30/2022, [...] documented as of this encounter Medical Devices Not on filedocumented as of this encounter Visit Diagnoses Diagnosis BPH without obstruction/lower urinary tract symptoms Hypertrophy of prostate without urinary obstruction and other lower urinary tract symptoms (LUTS) Ureteral stone Calculus of ureter Right inguinal hernia Inguinal hernia without mention of obstruction or gangrene, unilateral or unspecified, (not specified as recurrent) documented in this encounter Advance Directives Latest Code Status on File Code Status Date Activated Date Inactivated Comments Full Code 02/19/2022 2:45 PM 02/19/2022 7:48 PM Thi s order reflects the patients wishes and were consensually agreed upon. Question Answer Comments Discussion of Advance Directives occurred with: Not Discussed due to patient's condition Code Status History Code Status Date Activated Date Inactivated Comments Full Code 02/19/2022 1:50 PM 02/19/2022 2:45 PM Thi s order reflects the patients wishes and were consensually agreed upon. Question Answer Comments Discussion of Advance Directives occurred with: Not Discussed due to patient's condition Care Teams Switchboard Operator Supervisor Relationship Specialty Start Date End Date Cindy Sinclair DO [address] [place] [address] [place] [address] PCP - General Internal Medicine 02/05/16 documented as of this encounter
--- OUTSIDE RECORDS SUMMARY | 2023-10-04 23:15 | External Medical Summary ---
Author Name Unknown Address Unknown Organization : Laboratory Report Ordering Provider Test Date Status RAZA ADAMS 05/02/2023 06:51:23 Final Observation Date Value Abnormality Reference (Units ) Status Glucose Point of Care 05/02/2023 06:51:23 146 Above high normal 70-120 (mg/dL) Final Performing Location
--- OUTSIDE RECORDS SUMMARY | 2023-10-04 23:15 | External Medical Summary | Summary of Care ---
Author Name Unknown Organization [facility] Address [address] [place] [address] Phone [phone] Care Team Providers Care Perianesthesia Manager Name Role Phone Sakshi Barros DO Primary Care Provider [phone] Reason for Visit * Reason Onset Date Comments case management 04/29/2023 Medication Problem 04/29/2023 Encounter Details Date Type Department Care Team (Latest Contact Info) Description 04/29/2023 [facility] Telephone Care Coordination and Integration [address] [place], [place] [phone] Lynne Hermosillo RN [address] [place] [address] case management; Medication Problem Allergies No known active allergiesdocumented as of this encounter (statuses as of 05/01/2023) Medications Medication Sig Dispensed Refills Start Date [...] HEALTHCARE) USE ONCE DAILY 100 Each 3 08/21/2022 [...] Tablet 2 11/16/2022 Active OneTouch Delica Plus [id number] :Type 2 diabetes mellitus with diabetic neuropathy, without long-term current use of insulin ([facility]) Test up to four times daily 400 [...] BEDTIME 400 Capsule 1 04/22/2023 4 Active documented as of this encounter (statuses as of 05/01/2023) Active Problems Problem Noted Date Diagnosed Date [...] as of this encounter (statuses as of 05/01/2023) Resolved Problems Problem Noted Date Diagnosed Date Resolved Date Absolute anemia 02/21/2021 06/12/2022 Abnormal thyroid blood test 03/30/2020 11/21/2020 Overview: From Dr. Nuñez. Will recheck through [employer] next time he is seen. Major depressive [...] range 120 to 150. Last hemoglobin A1c 7.83483 continue metformin, Lantus Rectal bleeding 02/05/2016 01/10/2017 Overview: Had EGD/colonoscopy Acute blood loss anemia 02/05/201612/27 HTN, goal below 140/90 02/05/201601/10 Neuropathy 02/05/2016 01/10/2017 AK (actinic keratosis) 01/12/201401/10 Overview: Efudex (Salina Vazquez)- 04/2014 documented as of this encounter (statuses as of 05/01/2023) Immunizations Name Administration Dates Next Due COVID-19 mRNA, LNP-s, No Pre serve, 2-Dose Series ([employer]) 04/05/2021,07/04/2020,06/13/2020 COVID-19, MRNA-LNP, 23-24, P F, [...] Telephone Encounter - Chelsy Main RN - 05/01/2023 3:32 PM EST Tamsulosin was already sent to mail order * Telephone Encounter - Lynne Hermosillo RN - 04/29/2023 5:37 PM EST THIS PATIENT IS NOT ACTIVE WITH CASE MANAGEMENT. Received voicemail from patient. Requesting some medication that he used to get from mail order, and now gets at [facility]. [facility] won't refill it until the , and he is out of it. Asking for it to be sent back to the mail order pharmacy. I could not understand what he was saying on the voicemail - would you please call and ask him whatmedication he is out of and needs sent to the mail order pharmacy. Thank you. documented in this encounter Plan of Treatment Upcoming Encounters Date Type Department Care Team (Latest Contact Info) Description 05/02/2023 7:45 AM EST Hospital Encounter OR [facility], Operating Room [facility] [address] [phone] Jean Claude Givens MD [address] [place] [address] 05/02/2023 7:45 AM EST - 05/02/2023 8:54 AM EST Surgery OR [facility], Operating Room [facility] [address] [place] [address] Jean Claude Givens MD [address] [place] [address] LAPAROSCOPIC REPAIR INGUINAL HERNIA INITIAL 05/14/2023 11:15 AM EST Office Visit General Surgery, [facility] [address] [place] [address] Jean Claude Givens MD [address] [place] [address] 06/04/2023 11:00 AM EST Office Visit Dermatology [address] [place] [address] Charline Hurst PA-C [address] [place] [address] [place] [address] 06/17/2023 11:30 AM EST Office Visit Cardiology [address] [place] [address] Tito House, PAKiki [address] [place] [address] 07/09/2023 10:30 AM EDT Office Visit Family Medicine [address] [place] [phone] Sakshi Barros [address] [place] [address] Scheduled Procedures Name Priority Associated Diagnoses Date/Ti nj LAPAROSCOPIC REPAIR INGUINAL HERNIA INITIAL Right inguinal [...] Discussed due to patient's condition Care Teams Perianesthesia Manager Relationship Specialty Start Date End Date Sakshi Barros DO [address] [place] [address] [place] [address] PCP - General Internal Medicine 02/05/16 documented as of this encounter
--- OUTSIDE RECORDS SUMMARY | 2023-10-04 23:15 | External Medical Summary ---
Author Name Unknown Address Unknown Organization : Laboratory Report Ordering Provider Test Date Status RAZA ADAMS 05/02/2023 09:14:38 Final Observation Date Value Abnormality Reference (Units ) Status Glucose Point of Care 05/02/2023 09:14:38 160 Above high normal 70-120 (mg/dL) Final Performing Location
--- OUTSIDE RECORDS SUMMARY | 2023-10-04 23:15 | External Medical Summary | Summary of Care ---
Author Name Unknown Organization [facility] Address [address] [facility] [place] [address] Phone [phone] Care Team Providers Care Newspaper Press Operator Apprentice Name Role Phone Sakshi Barros DO Primary Care Provider + [phone] Reason for Visit * Reason Comments Medication Refill Encounter Details Date Type Department Care Team (Late st Contact Info) Description 04/20/2023 Refill Family Medicine [address] [place] [address] Sakshi Barros DO [address] [place] [address] [place] [id number] Allergies No known active allergiesdocumented as of this encounter (statuses as of 04/22/2023) Medications Medication Sig Dispensed Refills Start Date [...] neuropathy, without long-term current use of insulin ([facility]) USE UP TO 3 TIMES A DAY E11.9 300 Strip 1 3 Active Potassium Chloride Angélica ER 20 MEQ Oral Tablet Extended Release TAKE ONE TABLET BY MOUTH TWICE A DAY WITH MORNING AND EVENING MEALS 200 Tablet 3 10/14/19 24 Active Glucose Blood In [...] MMIndications:DM type 2, goal HbA1c < 8% ([facility]) USE ONCE DAILY 100 Each 3 3 08/21/19 24 Active Lantus SoloStar 100 UNIT/ML Subcutaneous Solution Pen-injectorIndicati ons:DM type 2, goal HbA1c < 8% ([facility]) INJECT 15 UNITS UNDER THE SKIN DAILY 15 mL 3 3 07/25/19 24 Active Metoprolol Succinate ER 25 MG [...] Tablet 2 3 Active OneTouch Delica Plus [id number] :Type 2 diabetes mellitus with diabetic neuropathy, without long-term current use of insulin ([facility]) Test up to four times [...] severe pain. 60 Tablet 0 3 Active Tamsulosin HCl 0.4 MG Oral Capsule (Flomax)Indications: BPH without obstruction/lower urinary tract symptoms,Ureteral stone Take 2 Capsules by mouth in the morning. 200 Capsule 1 3 Active Latanoprost 0.005 % Ophthalmic Solution (Xalatan) INSTILL ONE DROP INTO BOTH EYES EVERY NIGHT 7.5 mL 3 3 Active Gabapentin 300 MG Oral Capsule (Neurontin) TAKE TWO CAPSULES BY MOUTH TWICE A DAY -- IN THE MORNING AND BEFORE BEDTIME 400 Capsule 1 3 04/21/20 24 Active Gabapentin 300 MG Oral Capsule (Neurontin) TAKE TWO CAPSULES BY MOUTH TWICE A DAY -- IN THE MORNING AND BEFORE BEDTIME 400 Capsule 1 3 04/20/20 23 Discontinu ed(Refill) documented as of this encounter (statuses as of 04/22/2023) Active Problems Problem Noted Date Diagnosed Date Chronic right shoulder pain 08/05/2022 Last Assessment & Plan: Has an appointment to go see Dr. Mendoza, his orthopedic surgeon, next week -continue ice Diabetic polyneuropathy assserafin ciated with type 2 diabetes mellitus 03/06/2022 [...] Statin History of cholecystectomy 10/15/2021 Atherosclerosis of [place] co ronary artery without angina pectoris 05/29/2021 Last Assessment & Plan: Continue statin, metoprolol, lisinopril Not on aspirin due to GI bleeding Occupational exposure to other air contaminants 11/21/2020 Hypomagnesemia 11/10/2020 Recurrent major depressive disorder, in remissio n 05/22/2020 History of [place] (myocardial infarction) [...] as of this encounter (statuses as of 04/22/2023) Resolved Problems Problem Noted Date Diagnosed Date Resolved Date Absolute anemia 02/21/2021 06/12/2022 Abnormal thyroid blood test 03/30/2020 11/21/2020 Overview: From Dr. Nuñez. Will recheck through [facility] next time he is seen. Major depressive [...] range 120 to 150. Last hemoglobin A1c 7.07717 continue metformin, Lantus Rectal bleeding 02/05/2016 01/10/2017 Overview: Had EGD/colonoscopy Acute blood loss anemia 02/05/201612/27 HTN, goal below 140/90 02/05/201601/10 Neuropathy 02/05/2016 01/10/2017 AK (actinic keratosis) 01/12/201401/10 Overview: Efudex (Salina Vazquez)- 04/2014 documented as of this encounter (statuses as of 04/22/2023) Immunizations Name Administration Dates Next Due COVID-19 mRNA, LNP-s, No Pre serve, 2-Dose Series ([employer]) 04/05/2021,07/04/2020,06/13/2020 COVID-19, MRNA-LNP, 23-24, P F, 30 [...] Telephone Encounter - Salty Brito MD - 04/22/2023 11:36 AM ESTSigned Prescriptions: Disp Refills Gabapentin 300 MG Oral Capsule (Neurontin) 400 Ca*1 Sig: TAKE TWO CAPSULES BY MOUTH TWICE A DAY -- IN THE MORNING AND BEFORE BEDTIME Authorizing Provider: SALTY BRITO * Telephone Encounter - Sondra Modi CMA - 04/22/2023 8:23 AM ESTPending Prescriptions: Disp Refills Gabapentin 300 MG Oral Capsule (Neurontin) 400 Ca*1 Sig: TAKE TWO CAPSULES BY MOUTH TWICE A DAY -- IN THE MORNING AND BEFORE BEDTIME * Telephone Encounter - Sondra Modi CMA - 04/22/2023 8:22 AM EST Pending Prescriptions: Disp Refills Gabapentin 300 MG Oral Capsule (Neurontin)400 Ca*1 Sig: TAKE TWO CAPSULES BY MOUTH TWICE A DAY -- IN THE MORNING AND BEFORE BEDTIME Last Visit: 12/25/2022 (in office), Visit date not found (telemedicine) Next Visit: 07/09/2023 Last date the medication was ordered: 08/30/2022 Patient Active Problem List Diagnosis Code Restless [...] G89.29 No diabetic retinopathy in both eyes [id number] History of GI diverticular bleed Z87.19 Microalbuminuria R80.9 DM type 2, goal HbA1c < 8% ([facility]) 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 J44.89 Primary open-angle glaucoma, left eye, mild stage H40.1121 HTN, goal below 140/90 I10 Recurrent major depressive disorder, in remission ([facility]) F33.40 History of [place] (myocardial infarction) I25.2 Hypomagnesemia E83.42 Occupational exposure to other air contaminants Z57.39 Atherosclerosis [place] coronary artery without angina pectoris I25.10 History of cholecystectomy Z90.49 Diabetic polyneuropathy associated with type 2 diabetes mellitus (HCC) E11.42 Chronic right shoulder pain M25.511, G89.29 Labs: Lab Results Component Value Date/Time CREATININE - [facility] 1.1 12/13/2022 12:22 PM CREATININE - [facility] 1.2 06/30/2019 03:18 PM CREATININE, RANDOM URINE - [facility] 168 06/12/2022 11:08 AM CREATININE, RANDOM URINE - [facility] 75 11/19/2019 02:53 PM CREATININE-OUTSIDE LAB 0.68 10/15/2021 12:00 AM Lab Results Component Value Date/Time POTASSIUM - [facility] 5.1 12/13/2022 12:22 PM POTASSIUM - [facility] 5.2 (H) 06/30/2019 03:18 PM POTASSIUM-OUTSIDE LAB 2.8 (A) 10/15/2021 12:00 AM Lab Results Component Value Date/Time TSH - [facility] 3.67 05/29/2021 02:49 PM TSH - [facility] 2.88 06/30/2019 03:18 [...] AM LDL CHOLESTEROL (DIRECT MEASURE) - [facility] 55 06/12/2022 11:08 AM LDL CHOLESTEROL (DIRECT MEASURE) - [facility] 53 05/29/2021 02:49 PM LDL CHOLESTEROL (DIRECT MEASURE) - [facility] NOT APPLICABLE 02/05/2016 08:55 AM Lab Results Component Value Date/Time ALT - [facility] 13 12/13/2022 12:22 PM ALT - [facility] 25 02/05/2016 08:55 [...] * Telephone Encounter - Demetrice Baeza - 04/20/2023 5:49 AM ESTPending Prescriptions: Disp Refills Gabapentin 300 MG Oral Capsule (Neurontin) 400 Ca*1 Sig: TAKE TWO CAPSULES BY MOUTH TWICE A DAY -- IN THE MORNING AND BEFORE BEDTIME documented in this encounter Plan of Treatment Upcoming Encounters Date Type Department Care Team (Latest Contact Info) Description 05/02/2023 7:45 AM EST Hospital Encounter OR [facility], Operating Room [facility] [address] [place] [phone] Jean Claude Givens MD [address] [place] [address] 05/02/2023 7:45 AM EST - 05/02/2023 9:04 AM EST Surgery OR [facility], Operating Room [facility] [address] [place] [phone] Jean Claude Givens MD [address] [place] [address] LAPAROSCOPIC REPAIR INGUINAL HERNIA INITIAL 05/02/2023 11:40 AM EST Office Visit Podiatry [facility] [address] [place] [address] Melinda Stallworth, MABEL [address] [place] [address] [place] [id number] 05/14/2023 11:15 AM EST Office Visit General Surgery, [facility] [address] [place] [address] Jean Claude Givens MD [address] [place] [address] 06/04/2023 11:00 AM EST Office Visit Dermatology [address] [place] [address] Charline Hurst PA-C [address] [place] [address] [place] [address] 06/17/2023 11:30 AM EST Office Visit Cardiology [address] [place] [address] [facility] [address] [place] [address] 07/09/2023 10:30 AM EDT Office Visit Family Medicine [address] [place] [phone] Sakshi Barros[address] [place] [address] Scheduled Procedures Name Priority Associated Diagnoses Date/Ti sd LAPAROSCOPIC REPAIR INGUINAL HERNIA INITIAL Right inguinal [...] Not on filedocumented as of this encounter Advance Directives Latest [...] Discussed due to patient's condition Care Teams Newspaper Press Operator Apprentice Relationship Specialty Start Date End Date Sakshi Barros DO [address] [place] [address] [place] [id number] PCP - General Internal Medicine 02/05/16 documented as of this encounter
--- NOTE | 2023-10-04 23:28 | Emergency Department Note ---
Impression & Plan Hydronephrosis due to obstruction of ureter, Diverticulitis, Kidney stones, Acute left flank pain ED Provider Note NAME: DANGELO CUI AGE: 78 SEX: M : 1945 ARRIVES VIA: Walk-In INFORMANT: Patient, ED PROVIDER(S): Johnie José DO CHIEF COMPLAINT: Back pain HPI: The patient is a 78-year-old male who presented to the emergency department for evaluation of left lower quadrant abdominal pain and left flank pain. The patient states that the symptoms began acutely after dinner this evening. He denies having any vomiting but he has nausea. He denies having any hematuria or diarrhea. The patient has a history of diverticulitis but also kidney stones. The patient denies having any black or tarry stools. Patient came directly to the emergency department this evening because of ongoing and worsening symptoms. ROS: See above HPI for pertinent positives & negatives. A total of 10 systems reviewed and were otherwise negative. PAST MEDICAL HISTORY: See Below PAST SURGICAL HISTORY: See Below FAMILY HISTORY: See Below SOCIAL HISTORY: See Below HOME MEDICATIONS: See Below ALLERGIES: See Below VITALS: See Below PHYSICAL EXAMINATION: GENERAL: The patient is awake and alert. He is very anxious and appears to be uncomfortable. EYES: The conjunctivae are clear. The pupils are round and reactive. EARS, NOSE, MOUTH AND THROAT: The nose is without any evidence of any deformity. NECK: The neck is nontender and supple. RESPIRATORY: Normal respiratory effort is noted there is no evidence of wheezing rhonchi or rales CARDIOVASCULAR: Regular rate and rhythm noted there no murmurs rubs or gallops normal S1 normal S2. GASTROINTESTINAL: The abdomen was distended. There is left lower quadrant tenderness palpation which is moderate. BACK: No midline tenderness or or step-off noted range of motion in flexion extension as well as rotation no signs of muscle spasm noted MUSCULOSKELETAL/EXTREMITIES: There is no evidence of gross deformity full range of motion is noted in the hips and shoulders. SKIN: There is no obvious evidence of any rash. There are no petechiae, pallor or cyanosis noted. NEUROLOGIC: Patient is awake alert and oriented x3 MEDICAL DECISION MAKING: The patient is a 78-year-old male who presented to the emergency department for acute left flank pain. The patient's history and physical exam appear to be consistent with ureteral calculi. This was shown to be the case on CT however there does appear to be some chronic findings of hydronephrosis. He was also found to have an area of possible diverticulitis. The patient was treated with IV fluids and IV pain medication. He was also treated with IV antibiotics for the presumed diverticulitis. The patient was still having significant pain. For this reason I will discuss his condition with the on-call [facility] hospitalist. Triage Nursing notes reviewed. Prior medical records reviewed Vital Signs: reviewed and remarkable for elevated blood pressure. Differential diagnosis: Etiologies such as appendicitis, diverticulitis, obstruction, inflammatory bowel disease, renal colic, PUD, biliary pathology, pancreatitis, mesenteric ischemia, aortic pathology, infections, genitourinary, UTI, perforated viscus, as well as others were entertained. ER treatment provided: See below Diagnostics interpreted by me: ECG: none Cardiac Monitoring: An order was placed for continuous cardiac monitoring. The monitor shows a rate of 69 bpm with sinus rhythm. Laboratory studies: As stated above and show below. Imaging studies: See below. Radiographic imaging was reviewed by myself Consultation(s): I discussed this case with Dr. Ribera Past Med/Surg History Problem List (Updated 10/05/23 @ 02:04 by Johnie José DO) Acute left flank pain (Acute) Diverticulitis (Acute) Hydronephrosis due to obstruction of ureter (Acute) Right inguinal hernia Kidney stones (Acute) HX Encounter for pre-operative examination Acute cholecystitis due to biliary calculus C. 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 Cholecystitis, acute (Acute) DVT prophylaxis Status post total shoulder arthroplasty R/L History of total knee arthroplasty Bilateral Diverticulitis (Acute) RECENT GI BLEED -TRANSFUSED 9 UNITS [facility] 12/2020 Medical History Left nephrolithiasis Temporomandibular joint disorder CLICKS-NO LOCKING Calculus of proximal left ureter Nephrolithiasis Diverticulosis of intestine with bleeding HLD (hyperlipidemia) Restless leg syndrome Diabetic neuropathy Surgical History History of cardiac cath Remote history of, mild, nonobstructive CAD noted History of cystoscopy with stent History of carpal tunnel release RIGHT History of cataract surgery R/L History of back surgery History of colonoscopy MULTIPLE-LAST ONE 12/2020 History of esophagogastroduodenoscopy (EGD) MULTIPLE Family History Sister Family history of diabetes mellitus Brother Family history of diabetes mellitus Uncle Family history of diabetes mellitus Father Family history of diabetes mellitus Social History Smoking Status: Never smoker Second Hand Exposure: No; Do You Dip or Chew Tobacco: No; Hx Alcohol Use: Yes Alcohol type: beer Hx Substance Use: No Preferred Language: Montserratian Communication Ability: Effective Yard Spotter Required: No Beliefs That Will Affect Care: None marital status: Current Living Situation: Spouse current occupational status: retired Feels Safe at Home: Yes Assistive Devices: None Allergies Allergies Allergy/AdvReac Type Severity Reaction Status Date / Time No Known Allergies Allergy Verified 10/05/23 01:11 Home Meds Home Medications Medication Instructions Recorded Confirmed gabapentin 300 mg capsule 600 mg PO BID 12/29/17 10/05/23 metformin 1,000 mg tablet 1,000 mg PO BIDM 12/29/17 10/05/23 multivit with minerals-iron 18 1 tab PO QAM 12/29/17 10/05/23 mg-folic ac 400 mcg-vit K 25 mcg tablet (Multi-Day Plus Minerals) pantoprazole 40 mg tablet,delayed 40 mg PO BID 12/29/17 10/05/23 release (Protonix) sertraline 50 mg tablet 50 mg PO HS 12/29/17 10/05/23 tamsulosin 0.4 mg capsule 0.8 mg PO QAM 12/29/17 10/05/23 insulin glargine 100 unit/mL 15 unit subcut HS 07/01/19 10/05/23 subcutaneous solution rosuvastatin 40 mg tablet 40 mg PO QAM 01/17/21 10/05/23 cyanocobalamin (vitamin B-12) 100 100 mcg PO DAILY 10/06/21 10/05/23 mcg tablet (Vitamin B-12) fluticasone 250 mcg-salmeterol 50 1 inh inhalation BID 10/06/21 10/05/23 mcg/dose blistr powdr for inhalation metoprolol succinate 25 mg 12.5 mg PO DAILY 10/06/21 10/05/23 tablet,extended release 24 hr aspirin 81 mg tablet,delayed 81 mg PO DAILY 01/06/23 10/05/23 release (Adult Aspirin Regimen) Lactobacillus acidophilus 250 500 mmu cells PO DAILY 10/05/23 10/05/23 million cell capsule (Probiotic Acidophilus) acetaminophen 325 mg tablet 650 mg PO Q6H PRN Pain 10/05/23 10/05/23 (Tylenol) amoxicillin 500 mg capsule 2,000 mg PO DIRECTED PRN 1 HR 10/05/23 10/05/23 PRIOR TO DENTAL PROCEDURES cholecalciferol (vitamin D3) 50 50 mcg PO DAILY 10/05/23 10/05/23 mcg (2,000 unit) capsule (Vitamin D3) dicyclomine 10 mg capsule 10 mg PO TID PRN ABD PAIN 10/05/23 10/05/23 latanoprost 0.005 % eye drops 1 drp OPB HS 10/05/23 10/05/23 magnesium oxide 400 mg (241.3 mg 400 mg PO QAM 10/05/23 10/05/23 magnesium) tablet (MgO) potassium chloride 10 mEq 5 meq PO DAILY 10/05/23 10/05/23 tablet,extended release(part/cryst) pramipexole 0.25 mg tablet 0.25 mg PO HS 10/05/23 10/05/23 psyllium 1 packet PO DAILY 10/05/23 10/05/23 tramadol 50 mg tablet 50 mg PO Q6H PRN Pain 10/05/23 10/05/23 Results & Data (ED) Vital Signs Vital Signs - 24 hr 10/04/23 23:04 10/04/23 23:25 10/05/23 00:07 Temperature 36.8 C Temperature Source Temporal Artery Scan Pulse Rate 83 70 69 Respiratory Rate 16 18 Blood Pressure 170/78 H Blood Pressure Mean 108 Pulse Oximetry 93 93 Oxygen Delivery Method Room Air Room Air Sepsis Recent Fever Within 48 Hours No Sepsis New/Unexplained Change in Mental Status N/A Sepsis Action Taken by Nursing No Action Required Home Medications Current Medication List: was personally reviewed by me Laboratory Data Attestation: I reviewed the patient's lab results. 10/04/23 23:45 10/04/23 23:45 Lab Results 10/04/23 Range/Units 23:45 WBC 7.28 (4.8-10.8) K/ul RBC 4.95 (4.70-6.10) M/uL Hgb 15.7 (14.0-18.0) g/dl Hct 45.0 (42.0-52.0) % MCV 90.9 (80.0-100.0) fL MCH 31.7 (25.0-34.0) pg MCHC 34.9 (32.0-36.0) g/dL RDW Std Deviation 46.6 H (36.4-46.3) fL RDW Coeff of Lachelle 14.0 (11.5-14.5) % Plt Count 162 (130-400) K/uL MPV 9.6 (9.4-12.4) fL Immature Gran % (Auto) 0.4 % Neut % (Auto) 65.1 % Lymph % (Auto) 22.1 % [place] % (Auto) 9.1 % Eos % (Auto) 3.0 % Baso % (Auto) 0.3 % Neut # (Auto) 4.74 (1.40-6.50) K/uL Lymph # (Auto) 1.61 (1.20-3.40) K/uL [place] # (Auto) 0.66 H (0.11-0.59) K/uL Eos # (Auto) 0.22 (0.00-0.50) K/uL Baso # (Auto) 0.02 (0.00-0.20) K/uL Immature Gran # (Auto) 0.03 (0.01-0.20) K/uL Sodium 135 L (136-145) mmol/L Potassium 4.2 (3.5-5.1) mmol/L Chloride 102 (98-107) mmol/L Carbon Dioxide 23 (21-32) mmol/L Anion Gap 10 (3-11) BUN 15 (6-23) mg/dl Creatinine 0.94 (0.6-1.4) mg/dl Est Cr Clr Drug Dosing 74.4 ml/min Est GFR ( Amer) 90.3 ml/min Est GFR (Non-Af Amer) 77.9 ml/min BUN/Creatinine Ratio 16.0 (10-20) Glucose 229 H (70-99(Fasting)) mg/dl Calcium 10.3 (8.6-10.3) mg/dl Total Bilirubin 0.8 (0.2-1.0) mg/dl AST 25 (13-39) U/L ALT 21 (7-52) U/L Alkaline Phosphatase 67 (34-104) U/L Total Protein 8.3 (6.0-8.3) gm/dl Albumin 4.5 (3.4-5.0) gm/dl Globulin 3.8 (2.5-4.0) gm/dl Albumin/Globulin Ratio 1.2 (0.9-2) Lipase 8 L (11-82) U/L Urine Color Yellow Urine Appearance Cloudy A (Clear) Urine pH 5.5 (4.5-7.5) Ur Specific [place] 1.023 (1.000-1.030) Urine Protein 1+ H (Negative) Urine Glucose (UA) Negative (Negative) Urine Ketones Negative (Negative) Urine Blood 3+ H (Negative) Urine Nitrite Negative (Negative) Urine Bilirubin Negative (Negative) Urine Urobilinogen Negative (Negative) Ur Leukocyte Esterase Negative (Negative) Urine WBC (Auto) 0-5 (0-5) /hpf Urine RBC (Auto) >20 H (0-2) /hpf U Hyaline Cast (Auto) 0-2 (0-2) /lpf U Epithel Cells (Auto) 0-2 (0-2) /hpf Urine Bacteria (Auto) None Seen (None Seen) Administered Medications Morphine Sulfate (Morphine Sulfate 4 Mg/Ml 1 Ml Carp\Vial) 4 mg IV Q15M PRN PRN Reason: Pain Stop: 10/18/23 23:24 Last Admin: 10/04/23 23:38 Dose: 4 mg Documented By: KG Discontinued Medications Sodium Chloride (Nss) 500 mls @ 999 mls/hr IV .Q31M STA Stop: 10/04/23 23:55 Last Infusion: 10/05/23 00:18 Dose: Infused Documented By: Admin: 10/04/23 23:37 Dose: 999 mls/hr Documented By: KG Ondansetron HCl (Ondansetron Inj 2 Mg/Ml 2 Ml Vial) 4 mg IV NOW STA Stop: 10/04/23 23:26 Last Admin: 10/04/23 23:37 Dose: 4 mg Documented By: KG Imaging Data Attestation: I personally reviewed and interpreted this imaging study as follows: My Impression: CT of the abdomen and pelvis was obtained in the emergency department. My interpretation is hydronephrosis on the left with a calculus in the mid ureter, final report below. Radiologist's Impression: Abdomen/Pelvis CT 10/04/23 23:25 Exam(s): CT ABDOMEN + PELVIS Without Contrast EXAM: CT Abdomen and Pelvis Without Intravenous Contrast CLINICAL HISTORY: Reason for exam: left flank pain. TECHNIQUE: Axial computed tomography images of the abdomen and pelvis without intravenous contrast. CTDI is 20.16 mGy and DLP is 1112.11 mGy-cm. Automated exposure control was utilized for the study. A dose lowering technique was utilized adhering to the principles of ALARA. COMPARISON: 12/23/2022. FINDINGS: Lung bases: Minimal bibasilar atelectasis. ABDOMEN: Liver: Unremarkable. Gallbladder and bile ducts: Post cholecystectomy. No ductal dilation. Pancreas: Fatty replaced. No ductal dilation. Spleen: Unremarkable. No splenomegaly. Adrenals: Unremarkable. No mass. Kidneys and ureters: Right kidney and ureters unremarkable. Increased left perinephric stranding. Moderate left hydronephrosis in hydroureter at the level of a 3 mm mid left ureteral calculus, not significantly changed from the prior study. Left ureter distal to the calculus is unremarkable. Stomach and bowel: No obstruction or ileus. Severe diffuse colonic diverticulosis. Distal left and proximal sigmoid colon wall thickening with surrounding infiltration suggesting acute diverticulitis. No free gas or free fluid. PELVIS: Appendix: No findings to suggest acute appendicitis. Bladder: Partially contracted. No stones. Reproductive: Unremarkable as visualized. ABDOMEN and PELVIS: Bones/joints: No acute fracture. Degenerative changes of the spine. Soft tissues: Unremarkable. Vasculature: Atherosclerotic vascular calcifications. No abdominal aortic aneurysm. Lymph nodes: Unremarkable. No enlarged lymph nodes. IMPRESSION: Severe diffuse colonic diverticulosis. Distal left and proximal sigmoid colon wall thickening with surrounding infiltration suggesting acute diverticulitis. Increased left perinephric stranding. Not significantly changed from 12/15/2022 left hydronephrosis and hydroureter to the level of the obstructing 3 mm calculus in the mid left ureter. A chronic obstruction suspected. Otherwise no change. Electronically signed by: Jean Claude Christie M.D. 10/05/23 01:45 AM Discharge Plan Visit Data Chief Complaint: Abdominal Pain Stated Complaint: LOWER LT ABD PAIN, TRAVELS INTO BACK ED Provider: Johnie José Discharge Problem: Hydronephrosis due to obstruction of ureter, Diverticulitis, Kidney stones, Acute left flank pain Patient Disposition: Being Evaluated by Hospitalist Forms Stand Alone Forms: My [facility] Prescriptions Prescriptions: No Action aspirin [Adult Aspirin Regimen] 81 mg tablet,delayed release (DR/EC) 81 mg PO DAILY tamsulosin 0.4 mg Capsule 0.8 mg PO QAM sertraline 50 mg Tablet 50 mg PO HS metformin 1,000 mg Tablet 1,000 mg PO BIDM gabapentin 300 mg Capsule 600 mg PO BID pantoprazole [Protonix] 40 mg Tablet,Delayed Release (Dr/Ec) 40 mg PO BID Multi-Day Plus Minerals 18 mg iron-400 mcg-25 mcg Tablet 1 tab PO QAM insulin glargine 100 unit/mL Solution 15 unit SUBCUT HS rosuvastatin 40 mg tablet 40 mg PO QAM fluticasone propion-salmeterol 250-50 mcg/dose blister with device 1 inh INHALATION BID cyanocobalamin (vitamin B-12) [Vitamin B-12] 100 mcg Tablet 100 mcg PO DAILY metoprolol succinate 25 mg tablet extended release 24 hr 12.5 mg PO DAILY amoxicillin 500 mg Capsule 2,000 mg PO DIRECTED PRN (Reason: 1 HR PRIOR TO DENTAL PROCEDURES) latanoprost 0.005 % drops 1 drp OPB HS acetaminophen [Tylenol] 325 mg Tablet 650 mg PO Q6H PRN (Reason: Pain) Metamucil Packet 1 packet PO DAILY Rx Instructions: mix into at least 8 oz of water or juice before administering tramadol 50 mg tablet 50 mg PO Q6H PRN (Reason: Pain) pramipexole 0.25 mg tablet 0.25 mg PO HS dicyclomine 10 mg capsule 10 mg PO TID PRN (Reason: ABD PAIN) potassium chloride 10 mEq tablet,ER particles/crystals 5 meq PO DAILY cholecalciferol (vitamin D3) [Vitamin D3] 50 mcg (2,000 unit) Capsule 50 mcg PO DAILY Probiotic Acidophilus 250 million cell Capsule 500 mmu cells PO DAILY magnesium oxide [MgO] 400 mg (241.3 mg magnesium) tablet 400 mg PO QAM Referrals Referrals: Sakshi Barros DO [Primary Care Provider] -
[2023-10-04] MEDS: ONDANSETRON INJ 2 MG/ML 2 ML VIAL IV STA (23:37)
[2023-10-04] MEDS: SODIUM CHLORIDE 0.9% 500 ML IV STA (23:37)
[2023-10-04] MEDS: MoRPHine SULFATE 4 MG/ML 1 ML CARP\\VIAL IV PRN (23:38)
[2023-10-05 00:04] LABS: Appearance Urine Cloudy (Clear); Bacteria Urine Automated None Seen (None Seen); Bilirubin Urine Negative (Negative); Blood Urine 3+ (Negative); Cast Urine Automated 0-2 /lpf (0-2); Color Urine Yellow; Epithelial Cell Urine Auto 0-2 /hpf (0-2); Glucose Urine UA Negative (Negative); Ketones Urine Negative (Negative); Leukocyte Esterase Urine Negative (Negative); Nitrite Urine Negative (Negative); Protein Urine 1+ (Negative); RBC Urine Automated >20 /hpf (0-2); Specific Gravity Urine 1.023 (1.000-1.030); Urobilinogen Urine Negative (Negative); WBC Urine Automated 0-5 /hpf (0-5); pH Urine 5.5 (4.5-7.5)
[2023-10-05 00:05] LABS: Basophils # (auto) 0.02 K/uL (0.00-0.20); Basophils % (auto) 0.3 %; Eosinophils # (auto) 0.22 K/uL (0.00-0.50); Hemoglobin 15.7 g/dl (14.0-18.0); Immature Granulocytes # (auto) 0.03 K/uL (0.01-0.20); Immature Granulocytes % (auto) 0.4 %; Lymphocytes # (auto) 1.61 K/uL (1.20-3.40); Lymphocytes % (auto) 22.1 %; Mean Corpuscular Hemoglobin 31.7 pg (25.0-34.0); Mean Corpuscular Hgb Conc 34.9 g/dL (32.0-36.0); Mean Corpuscular Volume 90.9 fL (80.0-100.0); Mean Platelet Volume 9.6 fL (9.4-12.4); Monocytes # (auto) 0.66 K/uL (0.11-0.59); Monocytes % (auto) 9.1 %; Neutrophils # (auto) 4.74 K/uL (1.40-6.50); Neutrophils % (auto) 65.1 %; Platelet Count 162 K/uL (130-400); RDW Standard Deviation 46.6 fL (36.4-46.3); Red Blood Count 4.95 M/uL (4.70-6.10); White Blood Count 7.28 K/ul (4.8-10.8)
[2023-10-05 00:18] LABS: Albumin Globulin Ratio 1.2 (0.9-2); Albumin Level 4.5 gm/dl (3.4-5.0); Bilirubin,Total 0.8 mg/dl (0.2-1.0); Calcium 10.3 mg/dl (8.6-10.3); Creatinine Clr Calc Pharmacy 74.4 ml/min; Est GFR (African American) 90.3 ml/min; Est GFR (Non-African American) 77.9 ml/min; Globulin 3.8 gm/dl (2.5-4.0); Potassium 4.2 mmol/L (3.5-5.1); Total Protein 8.3 gm/dl (6.0-8.3)
--- NOTE | 2023-10-05 01:46 | CT Scan Report ---
Exam(s): CT ABDOMEN + PELVIS Without Contrast EXAM: CT Abdomen and Pelvis Without Intravenous Contrast CLINICAL HISTORY: Reason for exam: left flank pain. TECHNIQUE: Axial computed tomography images of the abdomen and pelvis without intravenous contrast. CTDI is 20.16 mGy and DLP is 1112.11 mGy-cm. Automated exposure control was utilized for the study. A dose lowering technique was utilized adhering to the principles of ALARA. COMPARISON: 12/23/2022. FINDINGS: Lung bases: Minimal bibasilar atelectasis. ABDOMEN: Liver: Unremarkable. Gallbladder and bile ducts: Post cholecystectomy. No ductal dilation. Pancreas: Fatty replaced. No ductal dilation. Spleen: Unremarkable. No splenomegaly. Adrenals: Unremarkable. No mass. Kidneys and ureters: Right kidney and ureters unremarkable. Increased left perinephric stranding. Moderate left hydronephrosis in hydroureter at the level of a 3 mm mid left ureteral calculus, not significantly changed from the prior study. Left ureter distal to the calculus is unremarkable. Stomach and bowel: No obstruction or ileus. Severe diffuse colonic diverticulosis. Distal left and proximal sigmoid colon wall thickening with surrounding infiltration suggesting acute diverticulitis. No free gas or free fluid. PELVIS: Appendix: No findings to suggest acute appendicitis. Bladder: Partially contracted. No stones. Reproductive: Unremarkable as visualized. ABDOMEN and PELVIS: Bones/joints: No acute fracture. Degenerative changes of the spine. Soft tissues: Unremarkable. Vasculature: Atherosclerotic vascular calcifications. No abdominal aortic aneurysm. Lymph nodes: Unremarkable. No enlarged lymph nodes. IMPRESSION: Severe diffuse colonic diverticulosis. Distal left and proximal sigmoid colon wall thickening with surrounding infiltration suggesting acute diverticulitis. Increased left perinephric stranding. Not significantly changed from 12/15/2022 left hydronephrosis and hydroureter to the level of the obstructing 3 mm calculus in the mid left ureter. A chronic obstruction suspected. Otherwise no change. Electronically signed by: Jean Claude Christie M.D. 10/05/23 01:45 AM
[2023-10-05] MEDS: AMPICILLIN/SULBACTAM SOD 3,000 MG in SODIUM CHLOR 0.9% MINI-B 100 ML IV STA (03:05)
--- NOTE | 2023-10-05 03:56 | History & Physical Report ---
Date of Service October 05, 2023 Assessment & Plan (1) Diverticulitis: Plan: 78-year-old male with past medical history significant for type 2 diabetes, diabetic polyneuropathy, hyperlipidemia, hypomagnesia, asthma/COPD overlap syndrome, hypertension, mild arthrosclerosis of coronary artery, BPH, restless leg syndrome, chronic back pain, primary open-angle glaucoma, depression, anxiety, history of esophageal of carcinoma in situ, Alberto's esophagus s/p ablation, history of GI diverticular bleed, comes because of left lower quadrant abdominal pain radiating to the back seems started after dinnertime. Pain was very severe in nature. Currently it is subsiding. Has episode of nausea. Denies any fever or chills. Had a loose bowel movement in the afternoon. Since about a week he is having some urinary incontinence. Denies any chest pain or shortness of breath. No headache. Has some cough. Currently resting comfortably and hemodynamics are okay. Left lower quadrant abdominal pain CT scan showing diverticulitis will keep him n.p.o., IV fluids, IV morphine as needed, IV antiemetics as needed IV Zosyn consult surgery close monitor left ureter calculus CT scan showing left mid ureteral calculus 3 mm with left hydronephrosis and hy droureter seems chronic we will consult urology type 2 diabetes hold metformin cut back Lantus to 7 units as patient is currently n.p.o. sliding scale we will monitor history of asthma/COPD continue home inhalers hypertension on metoprolol succinate we will monitor BPH on Flomax we will monitor hyperlipidemia on statin history of mild CAD on aspirin, statin and beta-cesario Alberto's esophagus on PPI restless leg syndrome on pramipexole History of depression on Zoloft history of glaucoma continue home eyedrops DVT prophylaxis Lovenox disposition medical floor full code History of Present Illness Chief Complaint: left-sided abdominal pain Primary Care Provider: Sakshi Barros DO 78-year-old male with past medical history significant for type 2 diabetes, diabetic polyneuropathy, hyperlipidemia, hypomagnesia, asthma/COPD overlap syndrome, hypertension, mild arthrosclerosis of coronary artery, BPH, restless leg syndrome, chronic back pain, primary open-angle glaucoma, depression, anxiety, history of esophageal of carcinoma in situ, Alberto's esophagus s/p ablation, history of GI diverticular bleed, comes because of left lower quadrant abdominal pain radiating to the back seems started after dinnertime. Pain was very severe in nature. Currently it is subsiding. Has episode of nausea. Denies any fever or chills. Had a loose bowel movement in the afternoon. Since about a week he is having some urinary incontinence. Denies any chest pain or shortness of breath. No headache. Has some cough. Currently resting comfortably and hemodynamics are okay. Past medical history as mentioned above. past surgical history. Right total knee arthroplasty. Colonoscopy. EGD. EGD with biopsy. EGD with endoscopic ultrasound. Injection of lumbosacral spine. Laparoscopic cholecystectomy. Laparoscopic repair of inguinal hernia. Bilateral cataracts. Bilateral shoulder surgery. Tonsillectomy. Social history. . Quit smoking 1989. Smoked 2 packs a day for 32 years. Alcohol occasional. No drug use. Family history. Brother had cancer. Sister had cancer. Father had heart disorder. Mother had heart disorder. Allergies Allergy/AdvReac Type Severity Reaction Status Date / Time No Known Allergies Allergy Verified 10/05/23 01:11 Home Medications Medication Instructions Recorded Confirmed Type gabapentin 300 mg capsule 600 mg PO BID 12/29/17 10/05/23 History metformin 1,000 mg tablet 1,000 mg PO BIDM 12/29/17 10/05/23 History multivit with minerals-iron 18 1 tab PO QAM 12/29/17 10/05/23 History mg-folic ac 400 mcg-vit K 25 mcg tablet (Multi-Day Plus Minerals) pantoprazole 40 mg tablet,delayed 40 mg PO BID 12/29/17 10/05/23 History release (Protonix) sertraline 50 mg tablet 50 mg PO HS 12/29/17 10/05/23 History tamsulosin 0.4 mg capsule 0.8 mg PO QAM 12/29/17 10/05/23 History insulin glargine 100 unit/mL 15 unit subcut HS 07/01/19 10/05/23 History subcutaneous solution rosuvastatin 40 mg tablet 40 mg PO QAM 01/17/21 10/05/23 History cyanocobalamin (vitamin B-12) 100 100 mcg PO DAILY 10/06/21 10/05/23 History mcg tablet (Vitamin B-12) fluticasone 250 mcg-salmeterol 50 1 inh inhalation BID 10/06/21 10/05/23 History mcg/dose blistr powdr for inhalation metoprolol succinate 25 mg 12.5 mg PO DAILY 10/06/21 10/05/23 History tablet,extended release 24 hr aspirin 81 mg tablet,delayed 81 mg PO DAILY 01/06/23 10/05/23 History release (Adult Aspirin Regimen) Lactobacillus acidophilus 250 500 mmu cells PO DAILY 10/05/23 10/05/23 History million cell capsule (Probiotic Acidophilus) acetaminophen 325 mg tablet 650 mg PO Q6H PRN Pain 10/05/23 10/05/23 History (Tylenol) amoxicillin 500 mg capsule 2,000 mg PO DIRECTED PRN 1 HR 10/05/23 10/05/23 History PRIOR TO DENTAL PROCEDURES cholecalciferol (vitamin D3) 50 50 mcg PO DAILY 10/05/23 10/05/23 History mcg (2,000 unit) capsule (Vitamin D3) dicyclomine 10 mg capsule 10 mg PO TID PRN ABD PAIN 10/05/23 10/05/23 History latanoprost 0.005 % eye drops 1 drp OPB HS 10/05/23 10/05/23 History magnesium oxide 400 mg (241.3 mg 400 mg PO QAM 10/05/23 10/05/23 History magnesium) tablet (MgO) potassium chloride 10 mEq 5 meq PO DAILY 10/05/23 10/05/23 History tablet,extended release(part/cryst) pramipexole 0.25 mg tablet 0.25 mg PO HS 10/05/23 10/05/23 History psyllium 1 packet PO DAILY 10/05/23 10/05/23 History tramadol 50 mg tablet 50 mg PO Q6H PRN Pain 10/05/23 10/05/23 History Past Med/Surg History Problem List Acute left flank pain (Acute) Diverticulitis (Acute) Hydronephrosis due to obstruction of ureter (Acute) Right inguinal hernia Kidney stones (Acute) HX Encounter for pre-operative examination Acute cholecystitis due to biliary calculus C. 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 Cholecystitis, acute (Acute) DVT prophylaxis Status post total shoulder arthroplasty R/L History of total knee arthroplasty Bilateral Diverticulitis (Acute) RECENT GI BLEED -TRANSFUSED 9 UNITS [facility] 12/2020 Medical History Left nephrolithiasis Temporomandibular joint disorder CLICKS-NO LOCKING Calculus of proximal left ureter Nephrolithiasis Diverticulosis of intestine with bleeding HLD (hyperlipidemia) Restless leg syndrome Diabetic neuropathy Surgical History History of cardiac cath Remote history of, mild, nonobstructive CAD noted History of cystoscopy with stent History of carpal tunnel release RIGHT History of cataract surgery R/L History of back surgery History of colonoscopy MULTIPLE-LAST ONE 12/2020 History of esophagogastroduodenoscopy (EGD) MULTIPLE Family History Sister Family history of diabetes mellitus Brother Family history of diabetes mellitus Uncle Family history of diabetes mellitus Father Family history of diabetes mellitus Social History Smoking Status: Former smoker Tobacco Type: Cigarettes Second Hand Exposure: No; Do You Dip or Chew Tobacco: No; Hx Alcohol Use: Yes Alcohol type: beer and wine Hx Substance Use: No Preferred Language: German Communication Ability: Effective Information Technology Auditor Required: No Beliefs That Will Affect Care: None marital status: Current Living Situation: Spouse current occupational status: retired Other Information That Helps Us Care for You: No Feels Safe at Home: Yes Safety Concerns: Feels Safe At This Time Assistive Devices: Walker Review of Systems Review of Systems: All systems reviewed & are unremarkable except as noted in HPI & below Physical Exam Physical Exam: General- Not in distress Head- atraumatic Eyes- PERRL. ENT- oropharynx clear Neck- supple, no JVD. Lungs- clear to auscultation no wheezing or crackles Heart- regular rate and rhythm; no murmur, no gallop. Abdomen- normal bowel sounds, soft, LLQ tenderness present no distension seen Extremities- no pretibial edema, no erythema seen. Neuro- alert, oriented PERRL, no facial palsy; no dysarthria; moves extremities. Results & Data Results & Data Vital Signs (Past 12 Hours) Vital Signs Temp Pulse Resp BP Pulse Ox O2 Del Method 10/05/23 00:07 69 10/04/23 23:25 70 18 93 Room Air 10/04/23 23:04 36.8 C 83 16 170/78 H 93 Room Air Diagnostic Findings Laboratory Results WBC 7.28 K/ul (4.8-10.8) 10/04/23 23:45 RBC 4.95 M/uL (4.70-6.10) 10/04/23 23:45 Hgb 15.7 g/dl (14.0-18.0) 10/04/23 23:45 Hct 45.0 % (42.0-52.0) 10/04/23 23:45 MCV 90.9 fL (80.0-100.0) 10/04/23 23:45 MCH 31.7 pg (25.0-34.0) 10/04/23 23:45 MCHC 34.9 g/dL (32.0-36.0) 10/04/23 23:45 RDW Std Deviation 46.6 fL (36.4-46.3) H 10/04/23 23:45 RDW Coeff of Lachelle 14.0 % (11.5-14.5) 10/04/23 23:45 Plt Count 162 K/uL (130-400) 10/04/23 23:45 MPV 9.6 fL (9.4-12.4) 10/04/23 23:45 Immature Gran % (Auto) 0.4 % 10/04/23 23:45 Neut % (Auto) 65.1 % 10/04/23 23:45 Lymph % (Auto) 22.1 % 10/04/23 23:45 [place] % (Auto) 9.1 % 10/04/23 23:45 Eos % (Auto) 3.0 % 10/04/23 23:45 Baso % (Auto) 0.3 % 10/04/23 23:45 Neut # (Auto) 4.74 K/uL (1.40-6.50) 10/04/23 23:45 Lymph # (Auto) 1.61 K/uL (1.20-3.40) 10/04/23 23:45 [place] # (Auto) 0.66 K/uL (0.11-0.59) H 10/04/23 23:45 Eos # (Auto) 0.22 K/uL (0.00-0.50) 10/04/23 23:45 Baso # (Auto) 0.02 K/uL (0.00-0.20) 10/04/23 23:45 Immature Gran # (Auto) 0.03 K/uL (0.01-0.20) 10/04/23 23:45 Sodium 135 mmol/L (136-145) L 10/04/23 23:45 Potassium 4.2 mmol/L (3.5-5.1) 10/04/23 23:45 Chloride 102 mmol/L (98-107) 10/04/23 23:45 Carbon Dioxide 23 mmol/L (21-32) 10/04/23 23:45 Anion Gap 10 (3-11) 10/04/23 23:45 BUN 15 mg/dl (6-23) 10/04/23 23:45 Creatinine 0.94 mg/dl (0.6-1.4) 10/04/23 23:45 Est Cr Clr Drug Dosing 74.4 ml/min 10/04/23 23:45 Est GFR ( Amer) 90.3 ml/min 10/04/23 23:45 Est GFR (Non-Af Amer) 77.9 ml/min 10/04/23 23:45 BUN/Creatinine Ratio 16.0 (10-20) 10/04/23 23:45 Glucose 229 mg/dl (70-99(Fasting)) H 10/04/23 23:45 Calcium 10.3 mg/dl (8.6-10.3) 10/04/23 23:45 Total Bilirubin 0.8 mg/dl (0.2-1.0) 10/04/23 23:45 AST 25 U/L (13-39) 10/04/23 23:45 ALT 21 U/L (7-52) 10/04/23 23:45 Alkaline Phosphatase 67 U/L (34-104) 10/04/23 23:45 Total Protein 8.3 gm/dl (6.0-8.3) 10/04/23 23:45 Albumin 4.5 gm/dl (3.4-5.0) 10/04/23 23:45 Globulin 3.8 gm/dl (2.5-4.0) 10/04/23 23:45 Albumin/Globulin Ratio 1.2 (0.9-2) 10/04/23 23:45 Lipase 8 U/L (11-82) L 10/04/23 23:45 Urine Color Yellow 10/04/23 23:45 Urine Appearance Cloudy (Clear) A 10/04/23 23:45 Urine pH 5.5 (4.5-7.5) 10/04/23 23:45 Ur Specific [place] 1.023 (1.000-1.030) 10/04/23 23:45 Urine Protein 1+ (Negative) H 10/04/23 23:45 Urine Glucose (UA) Negative (Negative) 10/04/23 23:45 Urine Ketones Negative (Negative) 10/04/23 23:45 Urine Blood 3+ (Negative) H 10/04/23 23:45 Urine Nitrite Negative (Negative) 10/04/23 23:45 Urine Bilirubin Negative (Negative) 10/04/23 23:45 Urine Urobilinogen Negative (Negative) 10/04/23 23:45 Ur Leukocyte Esterase Negative (Negative) 10/04/23 23:45 Urine WBC (Auto) 0-5 /hpf (0-5) 10/04/23 23:45 Urine RBC (Auto) >20 /hpf (0-2) H 10/04/23 23:45 U Hyaline Cast (Auto) 0-2 /lpf (0-2) 10/04/23 23:45 U Epithel Cells (Auto) 0-2 /hpf (0-2) 10/04/23 23:45 Urine Bacteria (Auto) None Seen (None Seen) 10/04/23 23:45 Impressions Abdomen/Pelvis CT 10/04/23 23:25 Exam(s): CT ABDOMEN + PELVIS Without Contrast EXAM: CT Abdomen and Pelvis Without Intravenous Contrast CLINICAL HISTORY: Reason for exam: left flank pain. TECHNIQUE: Axial computed tomography images of the abdomen and pelvis without intravenous contrast. CTDI is 20.16 mGy and DLP is 1112.11 mGy-cm. Automated exposure control was utilized for the study. A dose lowering technique was utilized adhering to the principles of ALARA. COMPARISON: 12/23/2022. FINDINGS: Lung bases: Minimal bibasilar atelectasis. ABDOMEN: Liver: Unremarkable. Gallbladder and bile ducts: Post cholecystectomy. No ductal dilation. Pancreas: Fatty replaced. No ductal dilation. Spleen: Unremarkable. No splenomegaly. Adrenals: Unremarkable. No mass. Kidneys and ureters: Right kidney and ureters unremarkable. Increased left perinephric stranding. Moderate left hydronephrosis in hydroureter at the level of a 3 mm mid left ureteral calculus, not significantly changed from the prior study. Left ureter distal to the calculus is unremarkable. Stomach and bowel: No obstruction or ileus. Severe diffuse colonic diverticulosis. Distal left and proximal sigmoid colon wall thickening with surrounding infiltration suggesting acute diverticulitis. No free gas or free fluid. PELVIS: Appendix: No findings to suggest acute appendicitis. Bladder: Partially contracted. No stones. Reproductive: Unremarkable as visualized. ABDOMEN and PELVIS: Bones/joints: No acute fracture. Degenerative changes of the spine. Soft tissues: Unremarkable. Vasculature: Atherosclerotic vascular calcifications. No abdominal aortic aneurysm. Lymph nodes: Unremarkable. No enlarged lymph nodes. IMPRESSION: Severe diffuse colonic diverticulosis. Distal left and proximal sigmoid colon wall thickening with surrounding infiltration suggesting acute diverticulitis. Increased left perinephric stranding. Not significantly changed from 12/15/2022 left hydronephrosis and hydroureter to the level of the obstructing 3 mm calculus in the mid left ureter. A chronic obstruction suspected. Otherwise no change. Electronically signed by: Jean Claude Christie M.D. 10/05/23 01:45 AM Code Status & VTE Plan VTE Prophylaxis Plan VTE Prophylaxis will be ordered: Yes
[2023-10-05] MEDS ORDERED: MoRPHine SULFATE 4 MG/ML 1 ML CARP\\VIAL IV PRN (05:16)
[2023-10-05] MEDS ORDERED: GLUCOSE 10 TAB/TUBE PO PRN (05:16)
[2023-10-05] MEDS ORDERED: GLUCOSE 40% GEL 15 GM TUBE PO PRN (05:16)
[2023-10-05] MEDS ORDERED: DEXTROSE 50% 50 ML SYRINGE IV PRN (05:16)
[2023-10-05] MEDS ORDERED: traMADol HCL 50 MG TABLET PO PRN (05:16)
[2023-10-05] MEDS ORDERED: ONDANSETRON INJ 2 MG/ML 2 ML VIAL IV PRN (05:16)
[2023-10-05] MEDS ORDERED: CARBOHYDRATES FOR HYPOGLYCEMIA PO PRN (05:16)
[2023-10-05] MEDS ORDERED: GLUCAGON FOR INJ 1 MG VIAL SQ PRN (05:16)
[2023-10-05] MEDS: INSULIN ASPART PER UNIT CHARGE SC SCH (05:59)
[2023-10-05] MEDS: SODIUM CHLORIDE 0.9% 1,000 ML IV SCH (06:00)
[2023-10-05] MEDS: PIPERACILLIN/TAZOBACTAM 4.5 GM in DEXTROSE 5% MINI-B 100 ML IV SCH (06:38)
--- NOTE | 2023-10-05 07:15 | CT Scan Report ---
CT SCAN OF THE BRAIN WITHOUT IV CONTRAST CLINICAL HISTORY: Recent head injury. COMPARISON STUDY: No priors. TECHNIQUE: Unenhanced axial CT scan of the brain is performed from the vertex to the skull base. A do se lowering technique was utilized adhering to the principles of ALARA. CT DOSE: 625.8 mGy.cm FINDINGS: Brain parenchyma: There is age-related involutional change noting mild subcortical and periventricula r microangiopathic disease. There is no hemorrhage, mass effect, or evidence of acute territorial isc hemia by CT criteria. Pratt-white matter differentiation is preserved. No extra-axial fluid collection is seen. Ventricles, sulci, cisterns: Prominent secondary to involutional change. Intracranial vasculature: There is atherosclerotic calcification of the cavernous carotid and vertebr al arteries. Calvarium: Unremarkable. Sinuses and mastoids: The paranasal sinuses are clear. The mastoid air cells are well pneumatized. Orbits: The bony orbits are grossly intact. There are bilateral ocular lens implants. IMPRESSION: There is no hemorrhage, mass effect, or evidence of acute territorial ischemia by CT royce hartley. ACT 112: Negative or not required by law. Electronically signed by: King Soriano M.D. 10/05/2023 7:13 AM
--- NOTE | 2023-10-05 08:06 | Urology Consultation ---
Date of Consultation October 05, 2023 Assessment & Plan (1) Hydronephrosis due to obstruction of ureter: (2) Kidney stones: (3) Diverticulitis: (4) Acute left flank pain: (5) CAD (coronary artery disease): (6) HTN (hypertension): (7) Diabetes mellitus, type 2: Plan Patient presenting with abdominal pain discomfort and bowel infection. Found to have diverticulitis. During workup patient underwent CT examination. Was having episodes of left flank pain coming in waves. Patient has known history of kidney stones. Imaging had shown obstructing 3 to 4 mm stone in the proximal left ureter. Does have signs of hydronephrosis. Imaging was all reviewed interpreted by myself. Did have additional small stones seen in the kidney. Had signs of active diverticulitis. Patient's vitals and labs were all reviewed. Patient was afebrile. Had some mild hypertension. No major tachycardia. Oxygen saturation 90% on room air. Patient's labs are also reviewed. PSA from last year was 6.01. Prior labs showed a hemoglobin of 15.7. White count 7.28. Creatinine 0.94. Other labs are all reviewed and pertinent values in the HPI and plan section. Imaging was reviewed interpreted by myself. Findings as outlined above. Otherwise agree with read. Vitals were reviewed. Discussed findings extensively with patient. Reviewed documentation and assessment from the hospitalist team as well as from the ER. Reviewed patient's complicated history as well as the most recent issues related to the diverticulitis. Patient's complicated medical and surgical history was reviewed and summarized above. Patient's surgical, medical, social, and family history were all reviewed with pertinent values as above. Discussed patient's current diagnosis as well as concerns and issues. Reviewed different options moving forward. Discussed potential risks and benefits as well as possible options and concerns. Reviewed potential surgical options and interventions. Discussed potential issues and concerns related to intervention. Risk and benefits were discussed extensively with patient. Discussed potential risks related to anesthesia. Discussed risks of bleeding infection and injury. Patient is on broad-spectrum antibiotics for coverage for the diverticulitis. Will plan to continue with supportive care hydration and monitoring. Stone is small and would have a good chance for passage. Did discuss possible need for intervention. Multiple questions were answered. Will plan for continued supportive care and monitoring. If patient develops severe fever hypotension or major changes in pain discomfort nausea vomiting and other issues could consider more urgent inte rvention. Majority of patient's pain and discomfort is general abdominal pain secondary to the diverticulitis. Has previously had major stones with need for multiple interventions. Is not having considerable or major episodes of pain with the most current stone. Will plan to continue with observation and supportive care. Continue with hydration we will continue to allow adequate time for resolution of diverticulitis. Could consider further intervention if stone does not begin to move. In the meantime we will recommend utilizing maximum expulsion therapy with alpha-cesario, hydration, and symptom control in order to try to facilitate spontaneous passage History of Present Illness Attending Physician: Matti Bowling MD History of Present Illness New consultation for patient with stone, discomfort, obstruction, and ill feelings. Patient presented to the ER with worsening discomfort bowel related issues and development of diverticulitis. Had undergone initial examination. Incidentally found to also have obstructing left ureteral stone approximately 3 to 4 mm in size in the proximal ureter. Patient has been dealing with increasing issues on the left with lower abdominal discomfort and pain ongoing bowel related issues. Patient also had some episodes of sudden onset of pain into flank going down and radiating into groin and back in waves comes and goes. Abdominal discomfort and flank pain can be severe at times. Discussed and reviewed patient's family history for any history of stone disease. Also, discussed patient's medical surgery history especially related to any history of urinary issues or stone disease. Patient was admitted and is undergoing observation. Patient previously had stones treated by Dr. Meadows. Had a much larger stone that required multiple interventions. Is not having major severe episodes of pain. Majority of pain issues are related to abdominal pain associated with the current diverticulitis Allergies Allergy/AdvReac Type Severity Reaction Status Date / Time No Known Allergies Allergy Verified 10/05/23 01:11 Home Medications Medication Instructions Recorded Confirmed Type gabapentin 300 mg capsule 600 mg PO BID 12/29/17 10/05/23 History metformin 1,000 mg tablet 1,000 mg PO BIDM 12/29/17 10/05/23 History multivit with minerals-iron 18 1 tab PO QAM 12/29/17 10/05/23 History mg-folic ac 400 mcg-vit K 25 mcg tablet (Multi-Day Plus Minerals) pantoprazole 40 mg tablet,delayed 40 mg PO BID 12/29/17 10/05/23 History release (Protonix) sertraline 50 mg tablet 50 mg PO HS 12/29/17 10/05/23 History tamsulosin 0.4 mg capsule 0.8 mg PO QAM 12/29/17 10/05/23 History insulin glargine 100 unit/mL 15 unit subcut HS 07/01/19 10/05/23 History subcutaneous solution rosuvastatin 40 mg tablet 40 mg PO QAM 01/17/21 10/05/23 History cyanocobalamin (vitamin B-12) 100 100 mcg PO DAILY 10/06/21 10/05/23 History mcg tablet (Vitamin B-12) fluticasone 250 mcg-salmeterol 50 1 inh inhalation BID 10/06/21 10/05/23 History mcg/dose blistr powdr for inhalation metoprolol succinate 25 mg 12.5 mg PO DAILY 10/06/21 10/05/23 History tablet,extended release 24 hr aspirin 81 mg tablet,delayed 81 mg PO DAILY 01/06/23 10/05/23 History release (Adult Aspirin Regimen) Lactobacillus acidophilus 250 500 mmu cells PO DAILY 10/05/23 10/05/23 History million cell capsule (Probiotic Acidophilus) acetaminophen 325 mg tablet 650 mg PO Q6H PRN Pain 10/05/23 10/05/23 History (Tylenol) amoxicillin 500 mg capsule 2,000 mg PO DIRECTED PRN 1 HR 10/05/23 10/05/23 History PRIOR TO DENTAL PROCEDURES cholecalciferol (vitamin D3) 50 50 mcg PO DAILY 10/05/23 10/05/23 History mcg (2,000 unit) capsule (Vitamin D3) dicyclomine 10 mg capsule 10 mg PO TID PRN ABD PAIN 10/05/23 10/05/23 History latanoprost 0.005 % eye drops 1 drp OPB HS 10/05/23 10/05/23 History magnesium oxide 400 mg (241.3 mg 400 mg PO QAM 10/05/23 10/05/23 History magnesium) tablet (MgO) potassium chloride 10 mEq 5 meq PO DAILY 10/05/23 10/05/23 History tablet,extended release(part/cryst) pramipexole 0.25 mg tablet 0.25 mg PO HS 10/05/23 10/05/23 History psyllium 1 packet PO DAILY 10/05/23 10/05/23 History tramadol 50 mg tablet 50 mg PO Q6H PRN Pain 10/05/23 10/05/23 History Patient History Medical History Left nephrolithiasis Temporomandibular joint disorder CLICKS-NO LOCKING Calculus of proximal left ureter Nephrolithiasis Diverticulosis of intestine with bleeding HLD (hyperlipidemia) Restless leg syndrome Diabetic neuropathy Surgical History History of cardiac cath Remote history of, mild, nonobstructive CAD noted History of cystoscopy with stent History of carpal tunnel release RIGHT History of cataract surgery R/L History of back surgery History of colonoscopy MULTIPLE-LAST ONE 12/2020 History of esophagogastroduodenoscopy (EGD) MULTIPLE Family History Sister Family history of diabetes mellitus Brother Family history of diabetes mellitus Uncle Family history of diabetes mellitus Father Family history of diabetes mellitus Social History Smoking Status: Former smoker Tobacco Type: Cigarettes Second Hand Exposure: No; Do You Dip or Chew Tobacco: No; Hx Alcohol Use: Yes Alcohol type: beer and wine Hx Substance Use: No Preferred Language: Hungarian Communication Ability: Effective Automotive Parts Person Required: No Beliefs That Will Affect Care: None marital status: Current Living Situation: Spouse current occupational status: retired Other Information That Helps Us Care for You: No Feels Safe at Home: Yes Safety Concerns: Feels Safe At This Time Assistive Devices: Walker Review of Systems Review of Systems: All systems reviewed & are unremarkable except as noted in HPI & below Physical Exam Physical Exam: General: Alert and oriented x 3 in no acute distress. HEENT: Normocephalic Atraumatic. Inspection normal. Cranial Nerves 2-12 Grossly intact. Nares are clear. Neck is supple. Normal inspection of face. Normal inspection of neck. Neurologic: No deficits on inspection. Baseline for motor function and sensory. Psychologic: Normal affect. Respiratory: Nonlabored. No use of accessory muscles. No tachypnea or dyspnea. Cardiovascular: No tachycardia Skin: [place] and Dry. No rashes or visible lesions. Extremities: Moving without issues. No motor deficits on inspection Lymphatics: No edema Abdomen: Moderately distended. No rebound or guarding. Results & Data Vital Signs (Past 12 Hours) Vital Signs Temp Pulse Pulse Resp BP BP Pulse Ox 10/05/23 07:27 36.5 C 71 20 170/80 H 92 10/05/23 05:17 36.6 C 67 18 151/71 H 92 10/05/23 04:09 62 10/05/23 00:07 69 10/04/23 23:25 70 18 93 10/04/23 23:04 36.8 C 83 16 170/78 H 93 O2 Del Method 10/05/23 07:27 Room Air 10/05/23 05:17 Room Air 10/05/23 04:09 10/05/23 00:07 10/04/23 23:25 Room Air 10/04/23 23:04 Room Air PG Care Time/CCT Total # of Minutes Spent Total Time Spent with Patient: Total time spent is greater than 50% in coordination of care (as documented) at patient's floor/unit and/or counseling patient: Coding Level of Care Code 79797 INT INP/OBS CARE 3/75MIN Diagnoses Hydronephrosis due to obstruction of ureter N13.1 Kidney stones N20.0 Diverticulitis K57.92 Acute left flank pain R10.9 CAD (coronary artery disease) I25.10 HTN (hypertension) I10 Diabetes mellitus, type 2 E11.9
[2023-10-05 08:23] LABS: Basophils # (auto) 0.01 K/uL (0.00-0.20); Basophils % (auto) 0.2 %; Eosinophils # (auto) 0.14 K/uL (0.00-0.50); Eosinophils % (auto) 2.5 %; Hematocrit (blood only) 41.5 % (42.0-52.0); Hemoglobin 14.1 g/dl (14.0-18.0); Immature Granulocytes # (auto) 0.02 K/uL (0.01-0.20); Immature Granulocytes % (auto) 0.4 %; Lymphocytes # (auto) 1.44 K/uL (1.20-3.40); Lymphocytes % (auto) 26.2 %; Mean Corpuscular Hemoglobin 31.3 pg (25.0-34.0); Mean Corpuscular Volume 92.2 fL (80.0-100.0); Monocytes # (auto) 0.62 K/uL (0.11-0.59); Monocytes % (auto) 11.3 %; Neutrophils # (auto) 3.27 K/uL (1.40-6.50); Neutrophils % (auto) 59.4 %; Platelet Count 154 K/uL (130-400); RDW Standard Deviation 47.4 fL (36.4-46.3)
[2023-10-05] MEDS: MAGNESIUM OXIDE 400 MG TAB PO SCH (08:29)
[2023-10-05] MEDS: GABAPENTIN 300 MG CAP PO SCH (08:31)
[2023-10-05] MEDS: METOPROLOL SUCC 25MG EXT REL TAB PO SCH (08:31)
[2023-10-05] MEDS: ADVANCED PROBIOTIC 625 MG CAPSULE PO SCH (08:33)
[2023-10-05] MEDS: CEROVITE ADV FORMULA TAB PO SCH (08:34)
[2023-10-05] MEDS: ASPIRIN 81 MG ECTAB PO SCH (08:34)
[2023-10-05] MEDS: CHOLECALCIFEROL 25 MCG (1000 UNITS) TAB PO SCH (08:34)
[2023-10-05] MEDS: ROSUVASTATIN CALCIUM 20 MG TAB PO SCH (08:35)
[2023-10-05] MEDS: PANTOprazole 40 MG TAB PO SCH (08:35)
[2023-10-05] MEDS: TAMSULOSIN HCL 0.4 MG CAP PO SCH (08:36)
[2023-10-05] MEDS: CYANOCOBALAMIN (B-12) 100 MCG TABLET PO SCH (08:36)
[2023-10-05] MEDS: PSYLLIUM or GUAR GUM FIBER 4GM PACKET PO SCH (08:38)
[2023-10-05] MEDS: FLUTICASONE/VILANTEROL 200/25MCG 14 PUFFS/INHALER INH SCH (08:38)
[2023-10-05] MEDS: DICYCLOMINE HCL 10 MG CAP PO PRN (08:40)
[2023-10-05 08:42] LABS: BUN Creatinine Ratio 17.1 (10-20); Calcium 9.3 mg/dl (8.6-10.3); Creatinine Clr Calc Pharmacy 85.3 ml/min; Est GFR (African American) 98.9 ml/min; Est GFR (Non-African American) 85.3 ml/min; Magnesium 1.1 mg/dl (1.7-2.4); Potassium 4.3 mmol/L (3.5-5.1)
[2023-10-05] MEDS: POTASSIUM CHLORIDE 10 MEQ TABCR PO SCH (09:14)
--- NOTE | 2023-10-05 10:07 | Surgery Consultation ---
Date of Consultation October 05, 2023 Assessment & Plan (1) Diverticulitis: 78-year-old man with acute diverticulitis involving the left and proximal sigmoid colon. We discussed the etiology of diverticular disease. I would agree with bowel rest and IV antibiotics. Currently there are no signs of perforation or abscess. Hopefully he will improve nonoperatively. We discussed the need for antibiotics even upon discharge to complete a course. We reviewed the importance of high-fiber in the future and preventing this from occurring again. Will continue to follow. (2) Kidney stones: Urology following - no acute intervention needed as per their note History of Present Illness Reason for Consultation: diverticulitis Requesting Physician: Matti Bowling MD Attending Physician: Matti Bowling MD History of Present Illness 78-year-old man with a history of multiple diverticular bleeds who now presents with left sided abdominal pain which began yesterday. This is in the setting of known left ureteral stone stones which have caused left flank pain in the past. He notes that his pain began after dinner. This was quite severe and focal in the left lower abdomen. It was a constant aching. It was not related to any activity as it began once he laid down. It was associated with nausea and he did not feel well. He did not have any vomiting. He does note a history of some constipation in the last few days where he has not been having regular bowel movements and has feels felt the need to strain. He has never had any similar episodes to this in the past. He denied any fevers. He has had a colonoscopy within the last 5 years. He notes a history of multiple diverticular bleeds for which she has been admitted to [facility] in [place] in the past. He has never required surgical resection. His abdominal operations include a laparoscopic cholecystectomy and what appears to be a laparoscopic hernia repair. He currently is comfortable but still has mild pain in the left lower abdomen. Allergies Allergy/AdvReac Type Severity Reaction Status Date / Time No Known Allergies Allergy Verified 10/05/23 01:11 Home Medications Medication Instructions Recorded Confirmed Type gabapentin 300 mg capsule 600 mg PO BID 12/29/17 10/05/23 History metformin 1,000 mg tablet 1,000 mg PO BIDM 12/29/17 10/05/23 History multivit with minerals-iron 18 1 tab PO QAM 12/29/17 10/05/23 History mg-folic ac 400 mcg-vit K 25 mcg tablet (Multi-Day Plus Minerals) pantoprazole 40 mg tablet,delayed 40 mg PO BID 12/29/17 10/05/23 History release (Protonix) sertraline 50 mg tablet 50 mg PO HS 12/29/17 10/05/23 History tamsulosin 0.4 mg capsule 0.8 mg PO QAM 12/29/17 10/05/23 History insulin glargine 100 unit/mL 15 unit subcut HS 07/01/19 10/05/23 History subcutaneous solution rosuvastatin 40 mg tablet 40 mg PO QAM 01/17/21 10/05/23 History cyanocobalamin (vitamin B-12) 100 100 mcg PO DAILY 10/06/21 10/05/23 History mcg tablet (Vitamin B-12) fluticasone 250 mcg-salmeterol 50 1 inh inhalation BID 10/06/21 10/05/23 History mcg/dose blistr powdr for inhalation metoprolol succinate 25 mg 12.5 mg PO DAILY 10/06/21 10/05/23 History tablet,extended release 24 hr aspirin 81 mg tablet,delayed 81 mg PO DAILY 01/06/23 10/05/23 History release (Adult Aspirin Regimen) Lactobacillus acidophilus 250 500 mmu cells PO DAILY 10/05/23 10/05/23 History million cell capsule (Probiotic Acidophilus) acetaminophen 325 mg tablet 650 mg PO Q6H PRN Pain 10/05/23 10/05/23 History (Tylenol) amoxicillin 500 mg capsule 2,000 mg PO DIRECTED PRN 1 HR 10/05/23 10/05/23 History PRIOR TO DENTAL PROCEDURES cholecalciferol (vitamin D3) 50 50 mcg PO DAILY 10/05/23 10/05/23 History mcg (2,000 unit) capsule (Vitamin D3) dicyclomine 10 mg capsule 10 mg PO TID PRN ABD PAIN 10/05/23 10/05/23 History latanoprost 0.005 % eye drops 1 drp OPB HS 10/05/23 10/05/23 History magnesium oxide 400 mg (241.3 mg 400 mg PO QAM 10/05/23 10/05/23 History magnesium) tablet (MgO) potassium chloride 10 mEq 5 meq PO DAILY 10/05/23 10/05/23 History tablet,extended release(part/cryst) pramipexole 0.25 mg tablet 0.25 mg PO HS 10/05/23 10/05/23 History psyllium 1 packet PO DAILY 10/05/23 10/05/23 History tramadol 50 mg tablet 50 mg PO Q6H PRN Pain 10/05/23 10/05/23 History Patient History Medical History Left nephrolithiasis Temporomandibular joint disorder CLICKS-NO LOCKING Calculus of proximal left ureter Nephrolithiasis Diverticulosis of intestine with bleeding HLD (hyperlipidemia) Restless leg syndrome Diabetic neuropathy Surgical History History of cardiac cath Remote history of, mild, nonobstructive CAD noted History of cystoscopy with stent History of carpal tunnel release RIGHT History of cataract surgery R/L History of back surgery History of colonoscopy MULTIPLE-LAST ONE 12/2020 History of esophagogastroduodenoscopy (EGD) MULTIPLE Family History Sister Family history of diabetes mellitus Brother Family history of diabetes mellitus Uncle Family history of diabetes mellitus Father Family history of diabetes mellitus Social History Smoking Status: Former smoker Tobacco Type: Cigarettes Second Hand Exposure: No; Do You Dip or Chew Tobacco: No; Hx Alcohol Use: Yes Alcohol type: beer and wine Hx Substance Use: No Preferred Language: Tunisian Communication Ability: Effective Brush Painter Required: No Beliefs That Will Affect Care: None marital status: Current Living Situation: Spouse current occupational status: retired Other Information That Helps Us Care for You: No Feels Safe at Home: Yes Safety Concerns: Feels Safe At This Time Assistive Devices: Walker Review of Systems Review of Systems: All systems reviewed & are unremarkable except as noted in HPI & below Genitourinary: + problem reported (left flank pain in p ast, history of kidney stones) Physical Exam Constitutional: WD/WN, vitals as above Eyes: PERRL, conjunctivae normal, anicteric sclerae Respiratory: normal respiratory effort, lungs clear to auscultation Cardiovascular: RRR, no murmur, no edema Gastrointestinal (Abdomen): Inspection/Auscultation: abdomen normal to inspection, normal bowel sounds and + abdominal surgical incision (well healed lap sites); abdomen not distended Percussion/Palpation: + abdomen tender (left lower abdomen), + guarding (slight in left lower abdomen) and abdomen soft; no hepatosplenomegaly Neurologic: awake; no focal motor deficits Psychiatric: A+Ox3, euthymic affect Results & Data Vital Signs (Past 12 Hours) Vital Signs Temp Pulse Pulse Resp BP BP Pulse Ox 10/05/23 07:27 36.5 C 71 20 170/80 H 92 10/05/23 05:17 36.6 C 67 18 151/71 H 92 10/05/23 04:09 62 10/05/23 00:07 69 10/04/23 23:25 70 18 93 10/04/23 23:04 36.8 C 83 16 170/78 H 93 O2 Del Method 10/05/23 07:27 Room Air 10/05/23 05:17 Room Air 10/05/23 04:09 10/05/23 00:07 10/04/23 23:25 Room Air 10/04/23 23:04 Room Air Laboratory Results Abnormal lab results 10/04/23 10/05/23 10/05/23 Range/Units 23:45 05:09 06:55 RBC (4.70-6.10) M/uL Hct (42.0-52.0) % RDW Std Deviation 46.6 H (36.4-46.3) fL Harris # (Auto) 0.66 H (0.11-0.59) K/uL Sodium 135 L (136-145) mmol/L Glucose 229 H (70-99(Fasting)) mg/dl POC Glucose 154 H 145 H (70-99) mg/dl Magnesium (1.7-2.4) mg/dl Lipase 8 L (11-82) U/L Urine Appearance Cloudy A (Clear) Urine Protein 1+ H (Negative) Urine Blood 3+ H (Negative) Urine RBC (Auto) >20 H (0-2) /hpf 10/05/23 Range/Units 07:38 RBC 4.50 L (4.70-6.10) M/uL Hct 41.5 L (42.0-52.0) % RDW Std Deviation 47.4 H (36.4-46.3) fL Harris # (Auto) 0.62 H (0.11-0.59) K/uL Sodium (136-145) mmol/L Glucose 135 H (70-99(Fasting)) mg/dl POC Glucose (70-99) mg/dl Magnesium 1.1 L (1.7-2.4) mg/dl Lipase (11-82) U/L Urine Appearance (Clear) Urine Protein (Negative) Urine Blood (Negative) Urine RBC (Auto) (0-2) /hpf
--- NOTE | 2023-10-05 13:36 | Hospitalist Progress Note ---
Date of Service October 05, 2023 Assessment & Plan (1) Diverticulitis: Plan: 78-year-old male with past medical history significant for type 2 diabetes, diabetic polyneuropathy, hyperlipidemia, hypomagnesia, asthma/COPD overlap syndrome, hypertension, mild arthrosclerosis of coronary artery, BPH, restless leg syndrome, chronic back pain, primary open-angle glaucoma, depression, anxiety, history of esophageal of carcinoma in situ, Alberto's esophagus s/p ablation, history of GI diverticular bleed, comes because of left lower quadrant abdominal pain radiating to the back seems started after dinnertime. Pain was very severe in nature. Currently it is subsiding. Has episode of nausea. Denies any fever or chills. Had a loose bowel movement in the afternoon. Since about a week he is having some urinary incontinence. Denies any chest pain or shortness of breath. No headache. Has some cough. Currently resting comfortably and hemodynamics are okay. Left lower quadrant abdominal pain CT scan showing diverticulitis will keep him n.p.o., IV fluids, IV morphine as needed, IV antiemetics as needed IV Zosyn Consult surgery-appreciate input and recommendation Clinically better Left ureter calculus CT scan showing left mid ureteral calculus 3 mm with left hydronephrosis and hydroureter Seems chronic Appreciate urology input and recommendation Might need intervention Continue with the conservative management right now Type 2 diabetes Hold metformin Cut back Lantus to 7 units as patient is currently n.p.o. Sliding scale Will monitor History of asthma/COPD Continue home inhalers Hypertension On metoprolol succinate We will monitor BPH on Flomax we will monitor Hyperlipidemia - on statin History of mild CAD - on aspirin, statin and beta-cesario Alberto's esophagus on PPI Restless leg syndrome on pramipexole History of depression on Zoloft History of glaucoma continue home eyedrops DVT prophylaxis Lovenox disposition medical floor full code Admission and Anticipated Discharge Date Admission Date: October 05, 2023 Subjective 10/05/2023 The patient was seen and examined in medical floor He has been complaining of left lower quadrant pain No abdominal distention, nausea and or vomiting No fever and no chills Denies any dysuria Review of Systems Review of Systems: All systems reviewed and are unremarkable except as noted below Physical Exam Physical Exam: Lying in bed with minimal distress due to left lower quadrant pain Constitutional: well developed, well nourished and + ill appearing Eyes: PERRL, conjunctivae normal, anicteric sclerae ENMT: external ear and nose normal, oropharynx normal Neck: trachea midline, no thyromegaly Respiratory: no respiratory distress Auscultation: lungs clear to auscultation bilaterally Cardiovascular: Rate/Rhythm: regular rate and regular rhythm; not tachycardic Heart Sounds: normal S1 and normal S2; no murmur Extremities: no edema Gastrointestinal (Abdomen): Inspection/Auscultation: normal bowel sounds; abdomen not distended Percussion/Palpation: + abdomen tender (Left lower quadrant with minimal guarding) and abdomen soft Musculoskeletal: No acute arthritis involving any of the joints Neurologic: normal touch/pain/proprioception and moves all extremities Lymphatic: no cervical or axillary lymphadenopathy Results & Data Results & Data Vital Signs (Past 12 Hours) Vital Signs Temp Pulse Pulse Resp BP Pulse Ox O2 Del Method 10/05/23 07:27 36.5 C 71 20 170/80 H 92 Room Air 10/05/23 05:17 36.6 C 67 18 151/71 H 92 Room Air 10/05/23 04:09 62 Laboratory Results Short CBC 10/04/23 10/05/23 Range/Units 23:45 07:38 WBC 7.28 5.50 (4.8-10.8) K/ul Hgb 15.7 14.1 (14.0-18.0) g/dl Hct 45.0 41.5 L (42.0-52.0) % Plt Count 162 154 (130-400) K/uL BMP 10/04/23 10/05/23 23:45 07:38 Sodium 135 L 138 Potassium 4.2 4.3 Chloride 102 106 Carbon Dioxide 23 24 BUN 15 14 Creatinine 0.94 0.82 Glucose 229 H 135 H Calcium 10.3 9.3 Liver Function 10/04/23 Range/Units 23:45 Total Bilirubin 0.8 (0.2-1.0) mg/dl AST 25 (13-39) U/L ALT 21 (7-52) U/L Alkaline Phosphatase 67 (34-104) U/L Albumin 4.5 (3.4-5.0) gm/dl Urine 10/04/23 Range/Units 23:45 Urine Color Yellow Urine Appearance Cloudy A (Clear) Urine pH 5.5 (4.5-7.5) Ur Specific [place] 1.023 (1.000-1.030) Urine Protein 1+ H (Negative) Urine Glucose (UA) Negative (Negative) Medications Administered Current Inpatient Medications Aspirin (Aspirin 81 Mg Ectab) 81 mg PO DAILY [facility] Stop: 11/04/23 08:59 Last Admin: 10/05/23 08:34 Dose: 81 mg Cyanocobalamin (Cyanocobalamin (B-12) 100 Mcg Tablet) 100 mcg PO DAILY [facility] Stop: 11/04/23 08:59 Last Admin: 10/05/23 08:36 Dose: 100 mcg Dextrose (Dextrose 50% 50 Ml Syringe) 25 - 50 ml IV UD PRN; Protocol PRN Reason: Hypoglycemia Protocol Stop: 11/04/23 05:15 Dicyclomine HCl (Dicyclomine Hcl 10 Mg Cap) 10 mg PO TID PRN PRN Reason: ABD PAIN Stop: 11/04/23 05:15 Last Admin: 10/05/23 08:40 Dose: 10 mg Fluticasone/Vilanterol (Fluticasone/Vilanterol 200/25mcg 14 Puffs/Inhaler) 1 puffs INH DAILY [facility] Stop: 11/04/23 08:59 Last Admin: 10/05/23 08:38 Dose: 1 puffs Gabapentin (Gabapentin 300 Mg Cap) 600 mg PO BID [facility] Stop: 11/04/23 08:59 Last Admin: 10/05/23 08:31 Dose: 600 mg Glucagon (Glucagon For Inj 1 Mg Vial) 1 mg SQ UD PRN; Protocol PRN Reason: Hypoglycemia Protocol Stop: 11/04/23 05:15 Glucose (Glucose 40% Gel 15 Gm Tube) 15 - 30 gm PO UD PRN; Protocol PRN Reason: Hypoglycemia Protocol Stop: 11/04/23 05:15 Glucose (Glucose 10 Tab/Tube) 4 - 8 tab PO UD PRN; Protocol PRN Reason: Hypoglycemia Treatment Stop: 11/04/23 05:15 Sodium Chloride (Nss) 1,000 mls @ 100 mls/hr IV .Q10H [facility] Stop: 11/04/23 05:15 Last Admin: 10/05/23 06:00 Dose: 100 mls/hr Piperacillin Sod/Tazobactam (Sod 4.5 gm/ Dextrose) 100 mls @ 25 mls/hr IV Q8H [facility]; Protocol Stop: 10/15/23 06:59 Last Infusion: 10/05/23 11:26 Dose: Infused Insulin Aspart (Insulin Aspart Per Unit Charge) 0 units SC Q6 [facility] Stop: 11/04/23 05:59 Last Admin: 10/05/23 11:38 Dose: Not Given Insulin Glargine (Lantus Per Unit Charge) 7 units SQ HS [facility] Stop: 11/04/23 20:59 Lactobacillus Acidophilus (Advanced Probiotic 625 Mg Capsule) 1,250 mg PO DAILY [facility] Stop: 11/04/23 08:59 Last Admin: 10/05/23 08:33 Dose: 1,250 mg Latanoprost (Latanoprost 0.005% Op Soln 2.5 Ml Btl) 1 drops OPB HS [facility] Stop: 11/04/23 20:59 Magnesium Oxide (Magnesium Oxide 400 Mg Tab) 400 mg PO QAM [facility] Stop: 11/04/23 08:59 Last Admin: 10/05/23 08:29 Dose: 400 mg Metoprolol Succinate (Metoprolol Succ 25mg Ext Rel Tab) 12.5 mg PO DAILY [facility] Stop: 11/04/23 08:59 Last Admin: 10/05/23 08:31 Dose: 12.5 mg Miscellaneous (Carbohydrates For Hypoglycemia ) 15 - 30 gm PO UD PRN PRN Reason: Hypoglycemia Protocol Stop: 11/04/23 05:15 Morphine Sulfate (Morphine Sulfate 4 Mg/Ml 1 Ml Carp\Vial) 3 mg IV Q4H PRN PRN Reason: Severe Pain (Scale 7, 8, 9,10) Stop: 10/19/23 05:15 Multivitamins/Minerals (Cerovite Adv Formula Tab) 1 tab PO QAM [facility] Stop: 11/04/23 08:59 Last Admin: 10/05/23 08:34 Dose: 1 tab Ondansetron HCl (Ondansetron Inj 2 Mg/Ml 2 Ml Vial) 4 mg IV Q6H PRN PRN Reason: Nausea Stop: 11/04/23 05:15 Pantoprazole Sodium (Pantoprazole 40 Mg Tab) 40 mg PO BID [facility] Stop: 11/04/23 08:59 Last Admin: 10/05/23 08:35 Dose: 40 mg Potassium Chloride (Potassium Chloride 10 Meq Tabcr) 5 meq PO DAILY [facility] Stop: 11/04/23 08:59 Last Admin: 10/05/23 09:14 Dose: 5 meq Pramipexole Dihydrochloride (Pramipexole Dihydrochlo 0.25 Mg Tab) 0.25 mg PO HS [facility] Stop: 11/04/23 20:59 Psyllium Hydrophilic Mucilloid (Psyllium Or Guar Gum Fiber 4gm Packet) 4 gm PO DAILY [facility] Stop: 11/04/23 08:59 Last Admin: 10/05/23 08:38 Dose: Not Given Rosuvastatin Calcium (Rosuvastatin Calcium 10 Mg Tab) 40 mg PO QAM [facility] Stop: 11/05/23 08:59 Sertraline HCl (Sertraline Hcl 50 Mg Tablet) 50 mg PO HS [facility] Stop: 11/04/23 20:59 Tamsulosin HCl (Tamsulosin Hcl 0.4 Mg Cap) 0.8 mg PO QAM [facility] Stop: 11/04/23 08:59 Last Admin: 10/05/23 08:36 Dose: 0.8 mg Tramadol HCl (Tramadol Hcl 50 Mg Tablet) 50 mg PO Q6H PRN PRN Reason: Pain Stop: 11/04/23 05:15 Vitamin D (Cholecalciferol 25 Mcg (1000 Units) Tab) 50 mcg PO DAILY [facility] Stop: 11/04/23 08:59 Last Admin: 10/05/23 08:34 Dose: 50 mcg
[2023-10-05] MEDS: PRAMIPEXOLE DIHYDROCHLO 0.25 MG TAB PO SCH (20:18)
[2023-10-05] MEDS: SERTRALINE HCL 50 MG TABLET PO SCH (20:19)
[2023-10-05] MEDS: LATANOPROST 0.005% OP SOLN 2.5 ML BTL OPB SCH (20:19)
[2023-10-05] MEDS: LANTUS PER UNIT CHARGE SQ SCH (20:41)
[2023-10-06 07:18] LABS: Basophils # (auto) 0.02 K/uL (0.00-0.20); Basophils % (auto) 0.3 %; Eosinophils # (auto) 0.12 K/uL (0.00-0.50); Eosinophils % (auto) 1.8 %; Hematocrit (blood only) 38.3 % (42.0-52.0); Hemoglobin 13.1 g/dl (14.0-18.0); Immature Granulocytes # (auto) 0.03 K/uL (0.01-0.20); Immature Granulocytes % (auto) 0.4 %; Lymphocytes # (auto) 1.44 K/uL (1.20-3.40); Lymphocytes % (auto) 21.2 %; Mean Corpuscular Hemoglobin 31.3 pg (25.0-34.0); Mean Corpuscular Hgb Conc 34.2 g/dL (32.0-36.0); Mean Corpuscular Volume 91.4 fL (80.0-100.0); Mean Platelet Volume 9.8 fL (9.4-12.4); Monocytes # (auto) 0.65 K/uL (0.11-0.59); Monocytes % (auto) 9.6 %; Neutrophils # (auto) 4.53 K/uL (1.40-6.50); Neutrophils % (auto) 66.7 %; Platelet Count 158 K/uL (130-400); RDW Standard Deviation 47.1 fL (36.4-46.3); Red Blood Count 4.19 M/uL (4.70-6.10); White Blood Count 6.79 K/ul (4.8-10.8)
[2023-10-06 07:27] LABS: BUN Creatinine Ratio 10.6 (10-20); Calcium 8.6 mg/dl (8.6-10.3); Creatinine Clr Calc Pharmacy 74.4 ml/min; Est GFR (African American) 90.3 ml/min; Est GFR (Non-African American) 77.9 ml/min; Potassium 3.9 mmol/L (3.5-5.1)
[2023-10-06 07:59] LABS: Estimated Average Glucose 186 mg/dl; Hemoglobin A1C 8.1 % (4.5-5.6)
[2023-10-06] MEDS: ROSUVASTATIN CALCIUM 10 MG TAB PO SCH (08:41)
--- NOTE | 2023-10-06 09:06 | Surgery Progress Note ---
Date of Service October 06, 2023 Assessment & Plan (1) Diverticulitis: Plan: 78-year-old man with acute diverticulitis involving the left and proximal sigmoid colon. Currently there are no signs of perforation or abscess. avss no leukocytosis pain improving Plan: Clear liquids continue pain management as needed Continue IV Abx, will need course of oral abx on discharge low fiber diet on discharge continue medical management (2) Kidney stones: Plan: Urology following - no acute intervention needed as per their note Plan Discussed with Dr. Escalante who agrees with above. Admission and Anticipated Discharge Date Admission Date: October 05, 2023 Subjective feeling better today pain about 2-3/10, not taking any pain medication + bowel movements, no blood hungry Physical Exam Constitutional: WD/WN, vitals as above cooperative and comfortable; no acute distress and not ill appearing Respiratory: normal respiratory effort; no respiratory distress Gastrointestinal (Abdomen): Inspection/Auscultation: abdomen normal to inspection; abdomen not distended Percussion/Palpation: + abdomen tender (left mid abdomen and LLQ), + guarding (voluntary left abdomen on palpation) and abdomen soft; abdomen not rigid and abdomen not firm Skin: no rashes, warm and dry Psychiatric: A+Ox3, euthymic affect Results & Data Vital Signs (Past 12 Hours) Vital Signs Temp Pulse Resp BP Pulse Ox O2 Del Method 10/06/23 07:40 36.8 C 68 16 134/70 95 Room Air Laboratory Results 10/06/23 10/06/23 10/05/23 Range/Units 06:30 05:39 23:10 WBC 6.79 (4.8-10.8) K/ul RBC 4.19 L (4.70-6.10) M/uL Hgb 13.1 L (14.0-18.0) g/dl Hct 38.3 L (42.0-52.0) % MCV 91.4 (80.0-100.0) fL MCH 31.3 (25.0-34.0) pg MCHC 34.2 (32.0-36.0) g/dL RDW Std Deviation 47.1 H (36.4-46.3) fL RDW Coeff of Lachelle 14.0 (11.5-14.5) % Plt Count 158 (130-400) K/uL MPV 9.8 (9.4-12.4) fL Immature Gran % (Auto) 0.4 % Neut % (Auto) 66.7 % Lymph % (Auto) 21.2 % [place] % (Auto) 9.6 % Eos % (Auto) 1.8 % Baso % (Auto) 0.3 % Neut # (Auto) 4.53 (1.40-6.50) K/uL Lymph # (Auto) 1.44 (1.20-3.40) K/uL [place] # (Auto) 0.65 H (0.11-0.59) K/uL Eos # (Auto) 0.12 (0.00-0.50) K/uL Baso # (Auto) 0.02 (0.00-0.20) K/uL Immature Gran # (Auto) 0.03 (0.01-0.20) K/uL Sodium 139 (136-145) mmol/L Potassium 3.9 (3.5-5.1) mmol/L Chloride 107 (98-107) mmol/L Carbon Dioxide 25 (21-32) mmol/L Anion Gap 7 (3-11) BUN 10 (6-23) mg/dl Creatinine 0.94 (0.6-1.4) mg/dl Est Cr Clr Drug Dosing 74.4 ml/min Est GFR ( Amer) 90.3 ml/min Est GFR (Non-Af Amer) 77.9 ml/min BUN/Creatinine Ratio 10.6 (10-20) Glucose 120 H (70-99(Fasting)) mg/dl POC Glucose 103 H 118 H (70-99) mg/dl Estimat Average Glucose mg/dl Hemoglobin A1c (4.5-5.6) % Calcium 8.6 (8.6-10.3) mg/dl 10/05/23 10/05/23 10/05/23 Range/Units 17:46 11:31 07:38 WBC (4.8-10.8) K/ul RBC (4.70-6.10) M/uL Hgb (14.0-18.0) g/dl Hct (42.0-52.0) % MCV (80.0-100.0) fL MCH (25.0-34.0) pg MCHC (32.0-36.0) g/dL RDW Std Deviation (36.4-46.3) fL RDW Coeff of Lachelle (11.5-14.5) % Plt Count (130-400) K/uL MPV (9.4-12.4) fL Immature Gran % (Auto) % Neut % (Auto) % Lymph % (Auto) % [place] % (Auto) % Eos % (Auto) % Baso % (Auto) % Neut # (Auto) (1.40-6.50) K/uL Lymph # (Auto) (1.20-3.40) K/uL [place] # (Auto) (0.11-0.59) K/uL Eos # (Auto) (0.00-0.50) K/uL Baso # (Auto) (0.00-0.20) K/uL Immature Gran # (Auto) (0.01-0.20) K/uL Sodium (136-145) mmol/L Potassium (3.5-5.1) mmol/L Chloride (98-107) mmol/L Carbon Dioxide (21-32) mmol/L Anion Gap (3-11) BUN (6-23) mg/dl Creatinine (0.6-1.4) mg/dl Est Cr Clr Drug Dosing ml/min Est GFR ( Amer) ml/min Est GFR (Non-Af Amer) ml/min BUN/Creatinine Ratio (10-20) Glucose (70-99(Fasting)) mg/dl POC Glucose 112 H 137 H (70-99) mg/dl Estimat Average Glucose 186 mg/dl Hemoglobin A1c 8.1 H (4.5-5.6) % Calcium (8.6-10.3) mg/dl
[2023-10-06] MEDS ORDERED: Nursing to Pharmacy Communication SCH (09:30)
--- NOTE | 2023-10-06 09:57 | Urology Progress Note ---
Date of Service October 06, 2023 Assessment & Plan (1) Hydronephrosis due to obstruction of ureter: (2) Kidney stones: Plan - Follow-up of 3 mm left mid ureteral calculus with left hydronephrosis and hydroureter - Denies noticeable stone passage. - LLQ abd pain has improved today. - Afebrile, hemodynamically stable at present. - Labs show no leukocytosis and normal renal function. - No plan for acute intervention at this time. - Continue trial of passage with max expulsion therapy with alpha-cesario, hydration, and symptom control - Strain all urine. - If patient develops fever, hypotension or major changes in pain we can revisit surgical intervention. Otherwise, will arrange outpatient follow-up for stone management. - Continue management of diverticulitis per surgery/medicine team. - Urology will follow Admission and Anticipated Discharge Date Admission Date: October 05, 2023 Subjective Patient seen at bedside this AM. Awake, resting in bed on arrival. No acute distress. He denies any noticeable stone passage. Denies fever, chills, nausea, vomiting. Denies significant pain. Does report some mild LLQ discomfort. Voiding without issues. Denies hematuria or dysuria. Review of Systems Constitutional: as per Subjective / HPI Gastrointestinal: as per Subjective / HPI Genitourinary: + as per Subjective / HPI Physical Exam Constitutional: no acute distress Respiratory: no respiratory distress and no labored breathing Neurologic: moves all extremities and awake Psychiatric: A+Ox3, euthymic affect Results & Data Vital Signs (Past 12 Hours) Vital Signs Temp Pulse Resp BP Pulse Ox O2 Del Method 10/06/23 07:40 36.8 C 68 16 134/70 95 Room Air PG Care Time/CCT Total # of Minutes Spent Total Time Spent with Patient: Total time spent is greater than 50% in coordination of care (as documented) at patient's floor/unit and/or counseling patient: Coding Level of Care Code 52213 SUB INP/OBS CARE 2/35MIN Diagnoses Hydronephrosis due to obstruction of ureter N13.1 Kidney stones N20.0
[2023-10-06] MEDS: INSULIN ASPART PER UNIT CHARGE SC SCH (12:18)
--- NOTE | 2023-10-06 13:29 | Hospitalist Progress Note ---
Date of Service October 06, 2023 Assessment & Plan (1) Diverticulitis: Plan: 78-year-old male with past medical history significant for type 2 diabetes, diabetic polyneuropathy, hyperlipidemia, hypomagnesia, asthma/COPD overlap syndrome, hypertension, mild arthrosclerosis of coronary artery, BPH, restless leg syndrome, chronic back pain, primary open-angle glaucoma, depression, anxiety, history of esophageal of carcinoma in situ, Alberto's esophagus s/p ablation, history of GI diverticular bleed, comes because of left lower quadrant abdominal pain radiating to the back seems started after dinnertime. Pain was very severe in nature. Currently it is subsiding. Has episode of nausea. Denies any fever or chills. Had a loose bowel movement in the afternoon. Since about a week he is having some urinary incontinence. Denies any chest pain or shortness of breath. No headache. Has some cough. Currently resting comfortably and hemodynamics are okay. Left lower quadrant abdominal pain CT scan showing diverticulitis will keep him n.p.o., IV fluids, IV morphine as needed, IV antiemetics as needed IV Zosyn Consult surgery-appreciate input and recommendation Feeling a lot better today with minimal left lower quadrant abdominal pain, no distention, no nausea no vomiting Left ureter calculus CT scan showing left mid ureteral calculus 3 mm with left hydronephrosis and hydroureter Seems chronic Appreciate urology input and recommendation Might need intervention Continue with the conservative management right now No plan for acute intervention Conservative management for now Advised to drink more fluid Type 2 diabetes Hold metformin Cut back Lantus to 7 units as patient is currently n.p.o. Sliding scale Will monitor History of asthma/COPD Continue home inhalers Hypertension On metoprolol succinate We will monitor BPH on Flomax we will monitor Hyperlipidemia - on statin History of mild CAD - on aspirin, statin and beta-cesario Alberto's esophagus on PPI Restless leg syndrome on pramipexole History of depression on Zoloft History of glaucoma continue home eyedrops DVT prophylaxis Lovenox disposition medical floor full code Admission and Anticipated Discharge Date Admission Date: October 05, 2023 Subjective 10/05/2023 The patient was seen and examined in medical floor He has been complaining of left lower quadrant pain No abdominal distention, nausea and or vomiting No fever and no chills Denies any dysuria 10/06/2023 The patient was seen and examined in medical floor He has been feeling better today Less left lower quadrant abdominal pain, no abdominal swelling and no nausea no vomiting Diet has been increased to full liquid Review of Systems Review of Systems: All systems reviewed and are unremarkable except as noted below Physical Exam Physical Exam: Lying in bed with minimal distress due to left lower quadrant pain Constitutional: well developed, well nourished and + ill appearing Eyes: PERRL, conjunctivae normal, anicteric sclerae ENMT: external ear and nose normal, oropharynx normal Neck: trachea midline, no thyromegaly Respiratory: no respiratory distress Auscultation: lungs clear to auscultation bilaterally Cardiovascular: Rate/Rhythm: regular rate and regular rhythm; not tachycardic Heart Sounds: normal S1 and normal S2; no murmur Extremities: no edema Gastrointestinal (Abdomen): Inspection/Auscultation: normal bowel sounds; abdomen not distended Percussion/Palpation: + abdomen tender (Left lower quadrant with minimal guarding) and abdomen soft Musculoskeletal: No acute arthritis involving any of the joints Neurologic: normal touch/pain/proprioception and moves all extremities Lymphatic: no cervical or axillary lymphadenopathy Results & Data Results & Data Vital Signs (Past 12 Hours) Vital Signs Temp Pulse Resp BP Pulse Ox O2 Del Method 10/06/23 07:40 36.8 C 68 16 134/70 95 Room Air Laboratory Results Short CBC 10/06/23 Range/Units 06:30 WBC 6.79 (4.8-10.8) K/ul Hgb 13.1 L (14.0-18.0) g/dl Hct 38.3 L (42.0-52.0) % Plt Count 158 (130-400) K/uL BMP 10/06/23 06:30 Sodium 139 Potassium 3.9 Chloride 107 Carbon Dioxide 25 BUN 10 Creatinine 0.94 Glucose 120 H Calcium 8.6 Medications Administered Current Inpatient Medications Aspirin (Aspirin 81 Mg Ectab) 81 mg PO DAILY [facility] Stop: 11/04/23 08:59 Last Admin: 10/06/23 08:41 Dose: 81 mg Cyanocobalamin (Cyanocobalamin (B-12) 100 Mcg Tablet) 100 mcg PO DAILY [facility] Stop: 11/04/23 08:59 Last Admin: 10/06/23 08:41 Dose: 100 mcg Dextrose (Dextrose 50% 50 Ml Syringe) 25 - 50 ml IV UD PRN; Protocol PRN Reason: Hypoglycemia Protocol Stop: 11/04/23 05:15 Dicyclomine HCl (Dicyclomine Hcl 10 Mg Cap) 10 mg PO TID PRN PRN Reason: ABD PAIN Stop: 11/04/23 05:15 Last Admin: 10/05/23 20:18 Dose: 10 mg Fluticasone/Vilanterol (Fluticasone/Vilanterol 200/25mcg 14 Puffs/Inhaler) 1 puffs INH DAILY [facility] Stop: 11/04/23 08:59 Last Admin: 10/06/23 08:41 Dose: 1 puffs Gabapentin (Gabapentin 300 Mg Cap) 600 mg PO BID [facility] Stop: 11/04/23 08:59 Last Admin: 10/06/23 08:39 Dose: 600 mg Glucagon (Glucagon For Inj 1 Mg Vial) 1 mg SQ UD PRN; Protocol PRN Reason: Hypoglycemia Protocol Stop: 11/04/23 05:15 Glucose (Glucose 40% Gel 15 Gm Tube) 15 - 30 gm PO UD PRN; Protocol PRN Reason: Hypoglycemia Protocol Stop: 11/04/23 05:15 Glucose (Glucose 10 Tab/Tube) 4 - 8 tab PO UD PRN; Protocol PRN Reason: Hypoglycemia Treatment Stop: 11/04/23 05:15 Sodium Chloride (Nss) 1,000 mls @ 100 mls/hr IV .Q10H [facility] Stop: 11/04/23 05:15 Last Admin: 10/06/23 09:36 Dose: 100 mls/hr Piperacillin Sod/Tazobactam (Sod 4.5 gm/ Dextrose) 100 mls @ 25 mls/hr IV Q8H [facility]; Protocol Stop: 10/15/23 06:59 Last Infusion: 10/06/23 09:58 Dose: Infused Insulin Aspart (Insulin Aspart Per Unit Charge) 0 units SC ACHS [facility] Stop: 11/04/23 05:59 Last Admin: 10/06/23 12:18 Dose: 4 units Insulin Glargine (Lantus Per Unit Charge) 7 units SQ HS [facility] Stop: 11/04/23 20:59 Last Admin: 10/05/23 20:41 Dose: 7 units Lactobacillus Acidophilus (Advanced Probiotic 625 Mg Capsule) 1,250 mg PO DAILY [facility] Stop: 11/04/23 08:59 Last Admin: 10/06/23 08:41 Dose: 1,250 mg Latanoprost (Latanoprost 0.005% Op Soln 2.5 Ml Btl) 1 drops OPB HS [facility] Stop: 11/04/23 20:59 Last Admin: 10/05/23 20:19 Dose: 1 drops Magnesium Oxide (Magnesium Oxide 400 Mg Tab) 400 mg PO QAM [facility] Stop: 11/04/23 08:59 Last Admin: 10/06/23 08:40 Dose: 400 mg Metoprolol Succinate (Metoprolol Succ 25mg Ext Rel Tab) 12.5 mg PO DAILY [facility] Stop: 11/04/23 08:59 Last Admin: 10/06/23 08:40 Dose: 12.5 mg Miscellaneous (Carbohydrates For Hypoglycemia ) 15 - 30 gm PO UD PRN PRN Reason: Hypoglycemia Protocol Stop: 11/04/23 05:15 Morphine Sulfate (Morphine Sulfate 4 Mg/Ml 1 Ml Carp\Vial) 3 mg IV Q4H PRN PRN Reason: Severe Pain (Scale 7, 8, 9,10) Stop: 10/19/23 05:15 Multivitamins/Minerals (Cerovite Adv Formula Tab) 1 tab PO QAM [facility] Stop: 11/04/23 08:59 Last Admin: 10/06/23 08:40 Dose: 1 tab Ondansetron HCl (Ondansetron Inj 2 Mg/Ml 2 Ml Vial) 4 mg IV Q6H PRN PRN Reason: Nausea Stop: 11/04/23 05:15 Pantoprazole Sodium (Pantoprazole 40 Mg Tab) 40 mg PO BID [facility] Stop: 11/04/23 08:59 Last Admin: 10/06/23 08:40 Dose: 40 mg Potassium Chloride (Potassium Chloride 10 Meq Tabcr) 5 meq PO DAILY [facility] Stop: 11/04/23 08:59 Last Admin: 10/06/23 08:41 Dose: 5 meq Pramipexole Dihydrochloride (Pramipexole Dihydrochlo 0.25 Mg Tab) 0.25 mg PO HS [facility] Stop: 11/04/23 20:59 Last Admin: 10/05/23 20:18 Dose: 0.25 mg Psyllium Hydrophilic Mucilloid (Psyllium Or Guar Gum Fiber 4gm Packet) 4 gm PO DAILY [facility] Stop: 11/04/23 08:59 Last Admin: 10/06/23 08:41 Dose: 4 gm Rosuvastatin Calcium (Rosuvastatin Calcium 20 Mg Tab) 40 mg PO QAM [facility] Stop: 11/06/23 08:59 Sertraline HCl (Sertraline Hcl 50 Mg Tablet) 50 mg PO HS [facility] Stop: 11/04/23 20:59 Last Admin: 10/05/23 20:19 Dose: 50 mg Tamsulosin HCl (Tamsulosin Hcl 0.4 Mg Cap) 0.8 mg PO QAM [facility] Stop: 11/04/23 08:59 Last Admin: 10/06/23 08:40 Dose: 0.8 mg Tramadol HCl (Tramadol Hcl 50 Mg Tablet) 50 mg PO Q6H PRN PRN Reason: Pain Stop: 11/04/23 05:15 Vitamin D (Cholecalciferol 25 Mcg (1000 Units) Tab) 50 mcg PO DAILY [facility] Stop: 11/04/23 08:59 Last Admin: 10/06/23 08:40 Dose: 50 mcg
[2023-10-07] MEDS: ROSUVASTATIN CALCIUM 20 MG TAB PO SCH (08:10)
--- NOTE | 2023-10-07 11:57 | Surgery Progress Note ---
Date of Service October 07, 2023 Assessment & Plan (1) Diverticulitis: Plan: 78-year-old man with acute diverticulitis involving the left and proximal sigmoid colon. Currently there are no signs of perforation or abscess. avss no leukocytosis pain improving Plan: advance to low fiber diet continue pain management as needed Continue IV Abx, will need course of oral abx on discharge low fiber diet on discharge for 2-4 weeks and then high fiber afterwards continue medical management (2) Kidney stones: Plan: Urology following - no acute intervention needed as per their note Admission and Anticipated Discharge Date Admission Date: October 05, 2023 Supervising Physician Co-Signing Physician Notes I have seen and examined the patient personally agree with the above assessment plan. In brief, he has acute diverticulitis with no evidence of perforation or abscess. He denies any abdominal pain today. He is tolerating a regular diet. Plan to advance his diet as tolerated, and he will most likely be discharged tomorrow. We will sign off for now. Please call with questions or concerns. Subjective feeling better, pain about a 1/10 today + bowel movements, no blood tolerating diet advancement no n,v Physical Exam Constitutional: WD/WN, vitals as above cooperative and comfortable; no acute distress and not ill appearing Respiratory: normal respiratory effort; no respiratory distress Gastrointestinal (Abdomen): Inspection/Auscultation: abdomen normal to inspection; abdomen not distended Percussion/Palpation: + abdomen tender (minimal LLQ on deep palpation) and abdomen soft; no guarding, abdomen not rigid and abdomen not firm Psychiatric: A+Ox3, euthymic affect Results & Data Vital Signs (Past 12 Hours) Vital Signs Temp Pulse Resp BP Pulse Ox O2 Del Method 10/07/23 07:08 36.4 C L 58 L 18 164/74 H 94 Room Air Laboratory Results 10/07/23 10/07/23 10/06/23 Range/Units 11:45 07:35 20:30 POC Glucose 112 H 130 H 99 (70-99) mg/dl 10/06/23 Range/Units 16:33 POC Glucose 104 H (70-99) mg/dl
--- NOTE | 2023-10-07 13:46 | Urology Progress Note ---
Date of Service October 07, 2023 Assessment & Plan (1) Hydronephrosis due to obstruction of ureter: (2) Kidney stones: (3) Diverticulitis: Plan - Follow-up of 3 mm left mid ureteral calculus with left hydronephrosis and hydroureter - Pt denies noticeable stone passage. - LLQ abd pain has improved. - Afebrile and hemodynamically stable at present. - Labs 10/05- no leukocytosis and normal renal function. - No plan for acute intervention at this time. - We discussed stone passage rates given size and location. - Continue trial of passage with max expulsion therapy with alpha-cesario, hydration, and symptom control - Strain all urine. - Will arrange outpatient follow-up with our service for stone management. - If patient develops fever, hypotension or major changes in pain we can revisit surgical intervention. - Continue management of diverticulitis per surgery/medicine team. - Urology will follow peripherally. Please call with any further questions, concerns, or changes in patient status. Admission and Anticipated Discharge Date Admission Date: October 05, 2023 Subjective Patient seen at bedside this AM. Awake, resting in bed on arrival. No acute distress. Overall feeling well. He denies any noticeable stone passage. Denies fever, chills, nausea, vomiting. Denies significant pain. Reports improvement in LLQ pain. Voiding without issues. Denies hematuria or dysuria. Review of Systems Constitutional: as per Subjective / HPI Gastrointestinal: as per Subjective / HPI Genitourinary: + as per Subjective / HPI Physical Exam Constitutional: no acute distress Respiratory: no respiratory distress and no labored breathing Neurologic: moves all extremities and awake Psychiatric: A+Ox3, euthymic affect Results & Data Vital Signs (Past 12 Hours) Vital Signs Temp Pulse Resp BP Pulse Ox O2 Del Method 10/07/23 07:08 36.4 C L 58 L 18 164/74 H 94 Room Air PG Care Time/CCT Total # of Minutes Spent Total Time Spent with Patient: Total time spent is greater than 50% in coordination of care (as documented) at patient's floor/unit and/or counseling patient: Coding Level of Care Code 70659 SUB INP/OBS CARE 2/35MIN Diagnoses Hydronephrosis due to obstruction of ureter N13.1 Kidney stones N20.0 Diverticulitis K57.92
--- NOTE | 2023-10-07 15:07 | Hospitalist Progress Note ---
Date of Service October 07, 2023 Assessment & Plan (1) Diverticulitis: Plan: 78-year-old male with past medical history significant for type 2 diabetes, diabetic polyneuropathy, hyperlipidemia, hypomagnesia, asthma/COPD overlap syndrome, hypertension, mild arthrosclerosis of coronary artery, BPH, restless leg syndrome, chronic back pain, primary open-angle glaucoma, depression, anxiety, history of esophageal of carcinoma in situ, Alberto's esophagus s/p ablation, history of GI diverticular bleed, comes because of left lower quadrant abdominal pain radiating to the back seems started after dinnertime. Pain was very severe in nature. Currently it is subsiding. Has episode of nausea. Denies any fever or chills. Had a loose bowel movement in the afternoon. Since about a week he is having some urinary incontinence. Denies any chest pain or shortness of breath. No headache. Has some cough. Currently resting comfortably and hemodynamics are okay. Left lower quadrant abdominal pain CT scan showing diverticulitis will keep him n.p.o., IV fluids, IV morphine as needed, IV antiemetics as needed IV Zosyn Consult surgery-appreciate input and recommendation Feeling a lot better today with minimal left lower quadrant abdominal pain, no distention, no nausea no vomiting Denies any more abdominal pain and bowel has been moving Will advance diet to low fiber Likely discharge tomorrow on oral antibiotic to finish the course of 14 days in total Left ureter calculus CT scan showing left mid ureteral calculus 3 mm with left hydronephrosis and hydroureter Seems chronic Appreciate urology input and recommendation Might need intervention Continue with the conservative management right now No plan for acute intervention Conservative management for now Advised to drink more fluid Conservative management and will have outpatient follow-up with the urologist Type 2 diabetes Hold metformin Cut back Lantus to 7 units as patient is currently n.p.o. 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 Admission and Anticipated Discharge Date Admission Date: October 05, 2023 Subjective 10/05/2023 The patient was seen and examined in medical floor He has been complaining of left lower quadrant pain No abdominal distention, nausea and or vomiting No fever and no chills Denies any dysuria 10/06/2023 The patient was seen and examined in medical floor He has been feeling better today Less left lower quadrant abdominal pain, no abdominal swelling and no nausea no vomiting Diet has been increased to full liquid 10/07/2023 The patient was seen and examined in medical floor He has been feeling much better today No abdominal pain, has been moving bowel, no fever and chills Review of Systems Review of Systems: All systems reviewed and are unremarkable except as noted below Physical Exam Physical Exam: Lying in bed without any distress. Constitutional: well developed, well nourished and + ill appearing Eyes: PERRL, conjunctivae normal, anicteric sclerae ENMT: external ear and nose normal, oropharynx normal Neck: trachea midline, no thyromegaly Respiratory: no respiratory distress Auscultation: lungs clear to auscultation bilaterally Cardiovascular: Rate/Rhythm: regular rate and regular rhythm; not tachycardic Heart Sounds: normal S1 and normal S2; no murmur Extremities: no edema Gastrointestinal (Abdomen): Inspection/Auscultation: normal bowel sounds; abdomen not distended Percussion/Palpation: abdomen soft; abdomen nontender (Left lower quadrant with minimal guarding) Musculoskeletal: No acute arthritis involving any of the joint Neurologic: normal touch/pain/proprioception and moves all extremities Lymphatic: no cervical or axillary lymphadenopathy Results & Data Results & Data Vital Signs (Past 12 Hours) Vital Signs Temp Pulse Resp BP Pulse Ox O2 Del Method 10/07/23 07:08 36.4 C L 58 L 18 164/74 H 94 Room Air Medications Administered Current Inpatient Medications Aspirin (Aspirin 81 Mg Ectab) 81 mg PO DAILY EVA Stop: 11/04/23 08:59 Last Admin: 10/07/23 08:09 Dose: 81 mg Cyanocobalamin (Cyanocobalamin (B-12) 100 Mcg Tablet) 100 mcg PO DAILY EVA Stop: 11/04/23 08:59 Last Admin: 10/07/23 08:09 Dose: 100 mcg Dextrose (Dextrose 50% 50 Ml Syringe) 25 - 50 ml IV UD PRN; Protocol PRN Reason: Hypoglycemia Protocol Stop: 11/04/23 05:15 Dicyclomine HCl (Dicyclomine Hcl 10 Mg Cap) 10 mg PO TID PRN PRN Reason: ABD PAIN Stop: 11/04/23 05:15 Last Admin: 10/05/23 20:18 Dose: 10 mg Fluticasone/Vilanterol (Fluticasone/Vilanterol 200/25mcg 14 Puffs/Inhaler) 1 puffs INH DAILY EVA Stop: 11/04/23 08:59 Last Admin: 10/07/23 08:10 Dose: 1 puffs Gabapentin (Gabapentin 300 Mg Cap) 600 mg PO BID EVA Stop: 11/04/23 08:59 Last Admin: 10/07/23 08:09 Dose: 600 mg Glucagon (Glucagon For Inj 1 Mg Vial) 1 mg SQ UD PRN; Protocol PRN Reason: Hypoglycemia Protocol Stop: 11/04/23 05:15 Glucose (Glucose 40% Gel 15 Gm Tube) 15 - 30 gm PO UD PRN; Protocol PRN Reason: Hypoglycemia Protocol Stop: 11/04/23 05:15 Glucose (Glucose 10 Tab/Tube) 4 - 8 tab PO UD PRN; Protocol PRN Reason: Hypoglycemia Treatment Stop: 11/04/23 05:15 Sodium Chloride (Nss) 1,000 mls @ 100 mls/hr IV .Q10H EVA Stop: 11/04/23 05:15 Last Admin: 10/07/23 05:43 Dose: 100 mls/hr Piperacillin Sod/Tazobactam (Sod 4.5 gm/ Dextrose) 100 mls @ 25 mls/hr IV Q8H EVA; Protocol Stop: 10/15/23 06:59 Last Infusion: 10/07/23 10:10 Dose: Infused Insulin Aspart (Insulin Aspart Per Unit Charge) 0 units SC ACHS EVA Stop: 11/04/23 05:59 Last Admin: 10/07/23 13:18 Dose: 8 units Insulin Glargine (Lantus Per Unit Charge) 7 units SQ HS EVA Stop: 11/04/23 20:59 Last Admin: 10/06/23 20:53 Dose: 7 units Lactobacillus Acidophilus (Advanced Probiotic 625 Mg Capsule) 1,250 mg PO DAILY EVA Stop: 11/04/23 08:59 Last Admin: 10/07/23 08:09 Dose: 1,250 mg Latanoprost (Latanoprost 0.005% Op Soln 2.5 Ml Btl) 1 drops OPB HS [facility] Stop: 11/04/23 20:59 Last Admin: 10/06/23 20:55 Dose: 1 drops Magnesium Oxide (Magnesium Oxide 400 Mg Tab) 400 mg PO QAM [facility] Stop: 11/04/23 08:59 Last Admin: 10/07/23 08:11 Dose: 400 mg Metoprolol Succinate (Metoprolol Succ 25mg Ext Rel Tab) 12.5 mg PO DAILY EVA Stop: 11/04/23 08:59 Last Admin: 10/07/23 08:11 Dose: 12.5 mg Miscellaneous (Carbohydrates For Hypoglycemia ) 15 - 30 gm PO UD PRN PRN Reason: Hypoglycemia Protocol Stop: 11/04/23 05:15 Morphine Sulfate (Morphine Sulfate 4 Mg/Ml 1 Ml Carp\Vial) 3 mg IV Q4H PRN PRN Reason: Severe Pain (Scale 7, 8, 9,10) Stop: 10/19/23 05:15 Multivitamins/Minerals (Cerovite Adv Formula Tab) [facility] [place]: 11/04/23 08:59 Last Admin: 10/07/23 08:11 Dose: 1 tab Ondansetron HCl (Ondansetron Inj 2 Mg/Ml 2 Ml Vial) 4 mg IV Q6H PRN PRN Reason: Nausea Stop: 11/04/23 05:15 Pantoprazole Sodium (Pantoprazole 40 Mg Tab) 40 mg PO BID EVA Stop: 11/04/23 08:59 Last Admin: 10/07/23 08:11 Dose: 40 mg Potassium Chloride (Potassium Chloride 10 Meq Tabcr) 5 meq PO DAILY EVA Stop: 11/04/23 08:59 Last Admin: 10/07/23 08:10 Dose: 5 meq Pramipexole Dihydrochloride (Pramipexole Dihydrochlo 0.25 Mg Tab) 0.25 mg PO HS [facility] Stop: 11/04/23 20:59 Last Admin: 10/06/23 20:56 Dose: 0.25 mg Psyllium Hydrophilic Mucilloid (Psyllium Or Guar Gum Fiber 4gm Packet) 4 gm PO DAILY [facility] Stop: 11/04/23 08:59 Last Admin: 10/07/23 08:11 Dose: 4 gm Rosuvastatin Calcium (Rosuvastatin Calcium 20 Mg Tab) 40 mg PO QAM [facility] Stop: 11/06/23 08:59 Last Admin: 10/07/23 08:10 Dose: 40 mg Sertraline HCl (Sertraline Hcl 50 Mg Tablet) 50 mg PO HS [facility] Stop: 11/04/23 20:59 Last Admin: 10/06/23 20:56 Dose: 50 mg Tamsulosin HCl (Tamsulosin Hcl 0.4 Mg Cap) 0.8 mg PO QAM [facility] Stop: 11/04/23 08:59 Last Admin: 10/07/23 08:09 Dose: 0.8 mg Tramadol HCl (Tramadol Hcl 50 Mg Tablet) 50 mg PO Q6H PRN PRN Reason: Pain Stop: 11/04/23 05:15 Vitamin D (Cholecalciferol 25 Mcg (1000 Units) Tab) 50 mcg PO DAILY [facility] Stop: 11/04/23 08:59 Last Admin: 10/07/23 08:10 Dose: 50 mcg
--- NOTE | 2023-10-08 13:48 | Hospitalist Progress Note ---
Date of Service October 08, 2023 Assessment & Plan (1) Diverticulitis: Plan: 78-year-old male with past medical history significant for type 2 diabetes, diabetic polyneuropathy, hyperlipidemia, hypomagnesia, asthma/COPD overlap syndrome, hypertension, mild arthrosclerosis of coronary artery, BPH, restless leg syndrome, chronic back pain, primary open-angle glaucoma, depression, anxiety, history of esophageal of carcinoma in situ, Alberto's esophagus s/p ablation, history of GI diverticular bleed, comes because of left lower quadrant abdominal pain radiating to the back seems started after dinnertime. Pain was very severe in nature. Currently it is subsiding. Has episode of nausea. Denies any fever or chills. Had a loose bowel movement in the afternoon. Since about a week he is having some urinary incontinence. Denies any chest pain or shortness of breath. No headache. Has some cough. Currently resting comfortably and hemodynamics are okay. Acute diverticulitis--POA --CT ABD:Severe diffuse colonic diverticulosis. Distal left and proximal sigmoid colon wall thickening with surrounding infiltration suggesting acute diverticulitis. Increased left perinephric stranding. Not significantly changed from 12/15/2022 left hydronephrosis and hydroureter to the level of the obstructing 3 mm calculus in the mid left ureter. A chronic obstruction suspected. Otherwise no change. -- Continue IV Zosyn, fluids Pain control Appreciate surgery input Tolerating low fiber diet Transition to p.o. antibiotics to complete the course Left ureter calculus Chronic left hydronephrosis and hydroureter CT scan as above Renal function at baseline Appreciate urology input and recommendation Conservative management follow-up Needs follow-up with urology on discharge Type 2 diabetes Hold metformin Continue insulin while hospitalized monitor BGs H/O Asthma/COPD Continue home inhalers No signs of acute exacerbation Hypertension Continue metoprolol succinate monitor BPH Continue Flomax monitor Hyperlipidemia on statin CAD -continue aspirin, statin and beta-cesario Alberto's esophagus on PPI Restless leg syndrome on pramipexole Depression Continue Zoloft H/O Glaucoma continue home eyedrops DVT Px: Lovenox SQ CODE STATUS Full code Disposition Home Admission and Anticipated Discharge Date Admission Date: October 05, 2023 Subjective Patient is seen and examined at bedside Left lower quadrant abdominal pain much improved Tolerating current diet Denies any nausea, vomiting, chest pain, dyspnea No other complaints Plan to be discharged home today Review of Systems Review of Systems: All systems reviewed & are unremarkable except as noted in Subjective Physical Exam Physical Exam: Physical Exam: Vitals signs as noted above General Appearance:Moderately built and nourished, no apparent distress, Elderly Head: normocephalic, Atraumatic Eyes: normal inspection, EOMI Neck: supple, Trachea midline Respiratory/Chest: Normal breath sounds, CTA, No accessory muscle use Cardiovascular: S1, S2, No murmur Abdomen/GI:Soft, Non tender, Bowel sounds present Extremities/Musculoskeletal:normal inspection, no edema Neurologic/Psych:AAOX3, grossly no focal neurological deficits, decreased hearing Skin: normal color, warm Results & Data Results & Data Vital Signs (Past 12 Hours) Vital Signs Temp Pulse Resp BP Pulse Ox O2 Del Method 10/08/23 06:25 36.4 C L 60 16 178/75 H 93 Room Air
--- NOTE | 2023-10-08 14:00 | Discharge Summary ---
Date of Service October 08, 2023 Admission HPI Per Admitting Provider 78-year-old male with past medical history significant for type 2 diabetes, diabetic polyneuropathy, hyperlipidemia, hypomagnesia, asthma/COPD overlap syndrome, hypertension, mild arthrosclerosis of coronary artery, BPH, restless leg syndrome, chronic back pain, primary open-angle glaucoma, depression, anxiety, history of esophageal of carcinoma in situ, Alberto's esophagus s/p ablation, history of GI diverticular bleed, comes because of left lower quadrant abdominal pain radiating to the back seems started after dinnertime. Pain was very severe in nature. Currently it is subsiding. Has episode of nausea. Denies any fever or chills. Had a loose bowel movement in the afternoon. Since about a week he is having some urinary incontinence. Denies any chest pain or shortness of breath. No headache. Has some cough. Currently resting comfortably and hemodynamics are okay. Past medical history as mentioned above. past surgical history. Right total knee arthroplasty. Colonoscopy. EGD. EGD with biopsy. EGD with endoscopic ultrasound. Injection of lumbosacral spine. Laparoscopic cholecystectomy. Laparoscopic repair of inguinal hernia. Bilateral cataracts. Bilateral shoulder surgery. Tonsillectomy. Social history. . Quit smoking 1989. Smoked 2 packs a day for 32 years. Alcohol occasional. No drug use. Family history. Brother had cancer. Sister had cancer. Father had heart disorder. Mother had heart disorder. Admission Exam Per Admitting Provider General- Not in distress Head- atraumatic Eyes- PERRL. ENT- oropharynx clear Neck- supple, no JVD. Lungs- clear to auscultation no wheezing or crackles Heart- regular rate and rhythm; no murmur, no gallop. Abdomen- normal bowel sounds, soft, LLQ tenderness present no distension seen Extremities- no pretibial edema, no erythema seen. Neuro- alert, oriented PERRL, no facial palsy; no dysarthria; moves extremities. Principal Diagnosis Acute diverticulitis Left ureter calculus Chronic left hydronephrosis and hydroureter Discharge Data Allergies Allergy/AdvReac Type Severity Reaction Status Date / Time No Known Allergies Allergy Verified 10/05/23 01:11 Consultations 10/05/23 02:04 ED Decision to Admit Stat 10/05/23 08:00 Consult Urology Routine 10/05/23 09:00 Consult General Surgery Routine Procedures Performed Laboratory Results WBC 6.79 K/ul (4.8-10.8) 10/06/23 06:30 RBC 4.19 M/uL (4.70-6.10) L 10/06/23 06:30 Hgb 13.1 g/dl (14.0-18.0) L 10/06/23 06:30 Hct 38.3 % (42.0-52.0) L 10/06/23 06:30 MCV 91.4 fL (80.0-100.0) 10/06/23 06:30 MCH 31.3 pg (25.0-34.0) 10/06/23 06:30 MCHC 34.2 g/dL (32.0-36.0) 10/06/23 06:30 RDW Std Deviation 47.1 fL (36.4-46.3) H 10/06/23 06:30 RDW Coeff of Lachelle 14.0 % (11.5-14.5) 10/06/23 06:30 Plt Count 158 K/uL (130-400) 10/06/23 06:30 MPV 9.8 fL (9.4-12.4) 10/06/23 06:30 Immature Gran % (Auto) 0.4 % 10/06/23 06:30 Neut % (Auto) 66.7 % 10/06/23 06:30 Lymph % (Auto) 21.2 % 10/06/23 06:30 [place] % (Auto) 9.6 % 10/06/23 06:30 Eos % (Auto) 1.8 % 10/06/23 06:30 Baso % (Auto) 0.3 % 10/06/23 06:30 Neut # (Auto) 4.53 K/uL (1.40-6.50) 10/06/23 06:30 Lymph # (Auto) 1.44 K/uL (1.20-3.40) 10/06/23 06:30 [place] # (Auto) 0.65 K/uL (0.11-0.59) H 10/06/23 06:30 Eos # (Auto) 0.12 K/uL (0.00-0.50) 10/06/23 06:30 Baso # (Auto) 0.02 K/uL (0.00-0.20) 10/06/23 06:30 Immature Gran # (Auto) 0.03 K/uL (0.01-0.20) 10/06/23 06:30 Sodium 139 mmol/L (136-145) 10/06/23 06:30 Potassium 3.9 mmol/L (3.5-5.1) 10/06/23 06:30 Chloride 107 mmol/L (98-107) 10/06/23 06:30 Carbon Dioxide 25 mmol/L (21-32) 10/06/23 06:30 Anion Gap 7 (3-11) 10/06/23 06:30 BUN 10 mg/dl (6-23) 10/06/23 06:30 Creatinine 0.94 mg/dl (0.6-1.4) 10/06/23 06:30 Est Cr Clr Drug Dosing 74.4 ml/min 10/06/23 06:30 Est GFR ( Amer) 90.3 ml/min 10/06/23 06:30 Est GFR (Non-Af Amer) 77.9 ml/min 10/06/23 06:30 BUN/Creatinine Ratio 10.6 (10-20) 10/06/23 06:30 Glucose 120 mg/dl (70-99(Fasting)) H 10/06/23 06:30 POC Glucose 179 mg/dl (70-99) H 10/08/23 11:21 Estimat Average Glucose 186 mg/dl 10/05/23 07:38 Hemoglobin A1c 8.1 % (4.5-5.6) H 10/05/23 07:38 Calcium 8.6 mg/dl (8.6-10.3) 10/06/23 06:30 Magnesium 1.1 mg/dl (1.7-2.4) L 10/05/23 07:38 Total Bilirubin 0.8 mg/dl (0.2-1.0) 10/04/23 23:45 AST 25 U/L (13-39) 10/04/23 23:45 ALT 21 U/L (7-52) 10/04/23 23:45 Alkaline Phosphatase 67 U/L (34-104) 10/04/23 23:45 Total Protein 8.3 gm/dl (6.0-8.3) 10/04/23 23:45 Albumin 4.5 gm/dl (3.4-5.0) 10/04/23 23:45 Globulin 3.8 gm/dl (2.5-4.0) 10/04/23 23:45 Albumin/Globulin Ratio 1.2 (0.9-2) 10/04/23 23:45 Lipase 8 U/L (11-82) L 10/04/23 23:45 Urine Color Yellow 10/04/23 23:45 Urine Appearance Cloudy (Clear) A 10/04/23 23:45 Urine pH 5.5 (4.5-7.5) 10/04/23 23:45 Ur Specific [place] 1.023 (1.000-1.030) 10/04/23 23:45 Urine Protein 1+ (Negative) H 10/04/23 23:45 Urine Glucose (UA) Negative (Negative) 10/04/23 23:45 Urine Ketones Negative (Negative) 10/04/23 23:45 Urine Blood 3+ (Negative) H 10/04/23 23:45 Urine Nitrite Negative (Negative) 10/04/23 23:45 Urine Bilirubin Negative (Negative) 10/04/23 23:45 Urine Urobilinogen Negative (Negative) 10/04/23 23:45 Ur Leukocyte Esterase Negative (Negative) 10/04/23 23:45 Urine WBC (Auto) 0-5 /hpf (0-5) 10/04/23 23:45 Urine RBC (Auto) >20 /hpf (0-2) H 10/04/23 23:45 U Hyaline Cast (Auto) 0-2 /lpf (0-2) 10/04/23 23:45 U Epithel Cells (Auto) 0-2 /hpf (0-2) 10/04/23 23:45 Urine Bacteria (Auto) None Seen (None Seen) 10/04/23 23:45 Impressions Abdomen/Pelvis CT 10/04/23 23:25 Exam(s): CT ABDOMEN + PELVIS Without Contrast EXAM: CT Abdomen and Pelvis Without Intravenous Contrast CLINICAL HISTORY: Reason for exam: left flank pain. TECHNIQUE: Axial computed tomography images of the abdomen and pelvis without intravenous contrast. CTDI is 20.16 mGy and DLP is 1112.11 mGy-cm. Automated exposure control was utilized for the study. A dose lowering technique was utilized adhering to the principles of ALARA. COMPARISON: 12/23/2022. FINDINGS: Lung bases: Minimal bibasilar atelectasis. ABDOMEN: Liver: Unremarkable. Gallbladder and bile ducts: Post cholecystectomy. No ductal dilation. Pancreas: Fatty replaced. No ductal dilation. Spleen: Unremarkable. No splenomegaly. Adrenals: Unremarkable. No mass. Kidneys and ureters: Right kidney and ureters unremarkable. Increased left perinephric stranding. Moderate left hydronephrosis in hydroureter at the level of a 3 mm mid left ureteral calculus, not significantly changed from the prior study. Left ureter distal to the calculus is unremarkable. Stomach and bowel: No obstruction or ileus. Severe diffuse colonic diverticulosis. Distal left and proximal sigmoid colon wall thickening with surrounding infiltration suggesting acute diverticulitis. No free gas or free fluid. PELVIS: Appendix: No findings to suggest acute appendicitis. Bladder: Partially contracted. No stones. Reproductive: Unremarkable as visualized. ABDOMEN and PELVIS: Bones/joints: No acute fracture. Degenerative changes of the spine. Soft tissues: Unremarkable. Vasculature: Atherosclerotic vascular calcifications. No abdominal aortic aneurysm. Lymph nodes: Unremarkable. No enlarged lymph nodes. IMPRESSION: Severe diffuse colonic diverticulosis. Distal left and proximal sigmoid colon wall thickening with surrounding infiltration suggesting acute diverticulitis. Increased left perinephric stranding. Not significantly changed from 12/15/2022 left hydronephrosis and hydroureter to the level of the obstructing 3 mm calculus in the mid left ureter. A chronic obstruction suspected. Otherwise no change. Electronically signed by: Jean Claude Christie M.D. 10/05/23 01:[address] 10/05/23 05:31 CT SCAN OF THE BRAIN WITHOUT IV CONTRAST CLINICAL HISTORY: Recent head injury. COMPARISON STUDY: No priors. TECHNIQUE: Unenhanced axial CT scan of the brain is performed from the vertex to the skull base. A dose lowering technique was utilized adhering to the princ iples of ALARA. CT DOSE: 625.8 mGy.cm FINDINGS: Brain parenchyma: There is age-related involutional change noting mild subcortical and periventricular microangiopathic disease. There is no hemo rrhage, mass effect, or evidence of acute territorial ischemia by CT criteria. Pratt-white matter differentiation is preserved. No extra-axial fluid collection is seen. Ventricles, sulci, cisterns: Prominent secondary to involutional change. Intracranial vasculature: There is atherosclerotic calcification of the cavernous carotid and vertebral arteries. Calvarium: Unremarkable. Sinuses and mastoids: The paranasal sinuses are clear. The mastoid air cells are well pneumatized. Orbits: The bony orbits are grossly intact. There are bilateral ocular lens implants. IMPRESSION: There is no hemorrhage, mass effect, or evidence of acute territorial ischemia by CT criteria. ACT 112: Negative or not required by law. Electronically signed by: King Soriano M.D. 10/05/2023 7:13 AM Ordered Studies 10/04/23 23:25 CT abd pelvis wo con Stat 10/05/23 05:31 CT head/brain wo con Routine Hospital Course (1) Diverticulitis: 78-year-old male with past medical history significant for type 2 diabetes, diabetic polyneuropathy, hyperlipidemia, hypomagnesia, asthma/COPD overlap syndrome, hypertension, mild arthrosclerosis of coronary artery, BPH, restless leg syndrome, chronic back pain, primary open-angle glaucoma, depression, anxiety, history of esophageal of carcinoma in situ, Alberto's esophagus s/p ablation, history of GI diverticular bleed, comes because of left lower quadrant abdominal pain radiating to the back seems started after dinnertime. Pain was very severe in nature. Currently it is subsiding. Has episode of nausea. Denies any fever or chills. Had a loose bowel movement in the afternoon. Since about a week he is having some urinary incontinence. Denies any chest pain or shortness of breath. No headache. Has some cough. Currently resting comfortably and hemodynamics are okay. Acute diverticulitis--POA --CT ABD:Severe diffuse colonic diverticulosis. Distal left and proximal sigmoid colon wall thickening with surrounding infiltration suggesting acute diverticulitis. Increased left perinephric stranding. Not significantly changed from 12/15/2022 left hydronephrosis and hydroureter to the level of the obstructing 3 mm calculus in the mid left ureter. A chronic obstruction suspected. Otherwise no change. -- Continue IV Zosyn, fluids Pain control Appreciate surgery input Tolerating low fiber diet Transition to p.o. antibiotics to complete the course Left ureter calculus Chronic left hydronephrosis and hydroureter CT scan as above Renal function at baseline Appreciate urology input and recommendation Conservative management follow-up Needs follow-up with urology on discharge Type 2 diabetes Hold metformin Continue insulin while hospitalized monitor BGs H/O Asthma/COPD Continue home inhalers No signs of acute exacerbation Hypertension Continue metoprolol succinate monitor BPH Continue Flomax monitor Hyperlipidemia on statin CAD -continue aspirin, statin and beta-cesario Alberto's esophagus on PPI Restless leg syndrome on pramipexole Depression Continue Zoloft H/O Glaucoma continue home eyedrops DVT Px: Lovenox SQ CODE STATUS Full code Disposition Home Total Time Total Time Spent Total Time Spent (In Minutes): 57 minutes Discharge Plan Discharge Items Patient Disposition: Home - Self-Care Reason For Visit: DIVERTICULITIS, KIDNEY STONE Discharge Diagnosis: Acute diverticulitis Left ureter calculus Chronic left hydronephrosis and hydroureter Activity: Per Instructions section Exercise/Sports: Gradually increase as tolerated Non-emergency contact: Primary Care Provider and Urologist Call non-emergency contact if: you have any medication questions, your symptoms worsen, your pain is concerning for you and you have a fever Follow-up/Referrals: Charline Meyer CRNP [Nurse Practitioner] - (The Urology office will contact you for a follow up appointment.) Sakshi Barros DO [Primary Care Provider] - (Date & Time 10/14/2023 1:40 PM Provider Janeen Pederson CRNP Department Family Medicine [facility] ) Diet: Carb Consistent or DM2 and Low Fiber Addtl Attending Provider Instructions: Follow-up with your primary care physician on 10/14/2023 1:40 PM Follow-up with your urologist DAISY Smith in 2 to 3 weeks as recommended --Complete the antibiotic course Augmentin as prescribed Seek immediate medical attention if your symptoms reoccur or worsen Please take all medications as instructed on discharge list below. Please call if you have any questions or problems. You can reach a [facility] hospitalist on duty at [facility] 24 hours a day by calling [phone] Pending Studies at Discharge: No Stand-Alone Forms: My [facility] [place], Smoking Cessation Medications and DC Order Prescriptions: New amoxicillin-pot clavulanate 875-125 mg tablet 1 tab PO BID Qty: 20 0RF Continued aspirin [Adult Aspirin Regimen] 81 mg tablet,delayed release (DR/EC) 81 mg PO DAILY tamsulosin 0.4 mg Capsule 0.8 mg PO QAM sertraline 50 mg Tablet 50 mg PO HS metformin 1,000 mg Tablet 1,000 mg PO BIDM gabapentin 300 mg Capsule 600 mg PO BID pantoprazole [Protonix] 40 mg Tablet,Delayed Release (Dr/Ec) 40 mg PO BID Multi-Day Plus Minerals 18 mg iron-400 mcg-25 mcg Tablet 1 tab PO QAM insulin glargine 100 unit/mL Solution 15 unit SUBCUT HS rosuvastatin 40 mg tablet 40 mg PO QAM fluticasone propion-salmeterol 250-50 mcg/dose blister with device 1 inh INHALATION BID cyanocobalamin (vitamin B-12) [Vitamin B-12] 100 mcg Tablet 100 mcg PO DAILY metoprolol succinate 25 mg tablet extended release 24 hr 12.5 mg PO DAILY amoxicillin 500 mg Capsule 2,000 mg PO DIRECTED PRN (Reason: 1 HR PRIOR TO DENTAL PROCEDURES) latanoprost 0.005 % drops 1 drp OPB HS acetaminophen [Tylenol] 325 mg Tablet 650 mg PO Q6H PRN (Reason: Pain) tramadol 50 mg tablet 50 mg PO Q6H PRN (Reason: Pain) pramipexole 0.25 mg tablet 0.25 mg PO HS dicyclomine 10 mg capsule 10 mg PO TID PRN (Reason: ABD PAIN) potassium chloride 10 mEq tablet,ER particles/crystals 5 meq PO DAILY cholecalciferol (vitamin D3) [Vitamin D3] 50 mcg (2,000 unit) Capsule 50 mcg PO DAILY magnesium oxide [MgO] 400 mg (241.3 mg magnesium) tablet 400 mg PO QAM Probiotic Acidophilus 250 million cell Capsule 500 mmu cells PO DAILY Qty: 60 0RF Held Metamucil Packet 1 packet PO DAILY Hold Instructions: Hold taking until further recommendations from your primary care physician Rx Instructions: mix into at least 8 oz of water or juice before administering Discharge Orders: Discharge Order (Routine); Ordered 10/08/23 Ordered By: Nikhil Vega/Other Patient Handouts: Managing Type 2 Diabetes Admission Data Admit Date/Time: 10/05/23 03:52 Attending Provider: Nikhil Alba Admit Provider: Miguel Ribera Primary Care Provider: Sakshi Barros Other Providers: Miguel Ribera; Jethro Suazo; Khoa Mabry; Paulie De La Torre; Charilne Meyer; Jacob Vega; Vicki Crook; Theresa Kevin; Ronnell Pickens; Rosanna Nash; Anthony Lyn; Mario Lowe; Michael Meadows; Rosy Conway
== END 2023-10-08 15:32 | disposition home or self-care (01) | DRG 694 ==
LOC: ED 23:03 → SUATTDRO 10-05 03:52 → 3W 10-05 03:52

== ENCOUNTER 2024-08-24 06:20 | Inpatient (IN) ==
--- NOTE | 2024-07-14 09:49 | PAT Medication Instructions ---
Medication Instructions Date of Service July 14, 2024 Home Medications Medication Instructions Recorded Lactobacillus acidophilus 250 500 mmu cells (2 x 250 million 10/08/23 million cell capsule (Probiotic cell) PO DAILY #60 caps Acidophilus) gabapentin 300 mg capsule 600 mg PO BID metformin 1,000 mg tablet 1,000 mg PO BIDM multivit with minerals-iron 18 mg-folic ac 400 mcg-vit K 25 mcg tablet (Multi- Day Plus Minerals) 1 tab PO QAM pantoprazole 40 mg tablet,delayed release (Protonix) 40 mg PO BID sertraline 50 mg tablet 50 mg PO HS tamsulosin 0.4 mg capsule 0.8 mg PO QAM insulin glargine 100 unit/mL subcutaneous solution 15 unit subcut HS rosuvastatin 40 mg tablet 40 mg PO HS cyanocobalamin (vitamin B-12) 100 mcg tablet (Vitamin B-12) 100 mcg PO QAM fluticasone 250 mcg-salmeterol 50 mcg/dose blistr powdr for inhalation 1 inh inhalation BID metoprolol succinate 25 mg tablet,extended release 24 hr 12.5 mg PO QAM aspirin 81 mg tablet,delayed release (Adult Aspirin Regimen) 81 mg PO QAM acetaminophen 325 mg tablet (Tylenol) 650 mg PO Q6H PRN Pain amoxicillin 500 mg capsule 2,000 mg PO DIRECTED PRN 1 HR PRIOR TO DENTAL PROCEDURES cholecalciferol (vitamin D3) 50 mcg (2,000 unit) capsule (Vitamin D3) 50 mcg PO QAM dicyclomine 10 mg capsule 10 mg PO TID PRN ABD PAIN latanoprost 0.005 % eye drops 1 drp OPB HS magnesium oxide 400 mg (241.3 mg magnesium) tablet (MgO) 400 mg PO QAM potassium chloride 10 mEq tablet,extended release(part/cryst) 5 meq PO QAM pramipexole 0.25 mg tablet 0.25 mg PO HS psyllium 1 packet PO QAM tramadol 50 mg tablet 50 mg PO Q6H PRN Pain Lactobacillus acidophilus 250 million cell capsule (Probiotic Acidophilus) 500 mmu cells (2 x 250 million cell) PO DAILY ibuprofen 200 mg tablet 200 mg PO Q6H PRN Pain Continue as directed amoxicillin 500 mg capsule 2,000 mg PO DIRECTED PRN 1 HR PRIOR TO DENTAL PROCEDURES (if needed) ASK your surgeon for instructions ibuprofen 200 mg tablet 200 mg PO Q6H PRN Pain ASK your prescriber and surgeon aspirin 81 mg tablet,delayed release (Adult Aspirin Regimen) 81 mg PO QAM DO NOT take the morning of surgery metformin 1,000 mg tablet 1,000 mg PO BIDM multivit with minerals-iron 18 mg-folic ac 400 mcg-vit K 25 mcg tablet (Multi- Day Plus Minerals) 1 tab PO QAM cyanocobalamin (vitamin B-12) 100 mcg tablet (Vitamin B-12) 100 mcg PO QAM cholecalciferol (vitamin D3) 50 mcg (2,000 unit) capsule (Vitamin D3) 50 mcg PO QAM dicyclomine 10 mg capsule 10 mg PO TID PRN ABD PAIN magnesium oxide 400 mg (241.3 mg magnesium) tablet (MgO) 400 mg PO QAM potassium chloride 10 mEq tablet,extended release(part/cryst) 5 meq PO QAM psyllium 1 packet PO QAM Lactobacillus acidophilus 250 million cell capsule (Probiotic Acidophilus) 500 mmu cells (2 x 250 million cell) PO DAILY Take morning of surgery With a small sip of water, OTHERWISE NOTHING TO EAT OR DRINK AFTER MIDNIGHT: gabapentin 300 mg capsule 600 mg PO BID pantoprazole 40 mg tablet,delayed release (Protonix) 40 mg PO BID tamsulosin 0.4 mg capsule 0.8 mg PO QAM fluticasone 250 mcg-salmeterol 50 mcg/dose blistr powdr for inhalation 1 inh inhalation BID metoprolol succinate 25 mg tablet,extended release 24 hr 12.5 mg PO QAM acetaminophen 325 mg tablet (Tylenol) 650 mg PO Q6H PRN Pain (if needed) tramadol 50 mg tablet 50 mg PO Q6H PRN Pain (if needed) Take evening before surgery gabapentin 300 mg capsule 600 mg PO BID metformin 1,000 mg tablet 1,000 mg PO BIDM pantoprazole 40 mg tablet,delayed release (Protonix) 40 mg PO BID sertraline 50 mg tablet 50 mg PO HS insulin glargine 100 unit/mL subcutaneous solution 15 unit subcut HS rosuvastatin 40 mg tablet 40 mg PO HS fluticasone 250 mcg-salmeterol 50 mcg/dose blistr powdr for inhalation 1 inh inhalation BID acetaminophen 325 mg tablet (Tylenol) 650 mg PO Q6H PRN Pain (if needed) dicyclomine 10 mg capsule 10 mg PO TID PRN ABD PAIN (if needed) latanoprost 0.005 % eye drops 1 drp OPB HS pramipexole 0.25 mg tablet 0.25 mg PO HS tramadol 50 mg tablet 50 mg PO Q6H PRN Pain (if needed) Other Notes If you have any questions please call us at [phone] or [phone] or [phone] or [phone]
--- NOTE | 2024-07-22 13:04 | Anesthesiology Consultation ---
Date of Service July 22, 2024 Assessment & Plan (1) Encounter for pre-operative examination: Plan - check BSG am DOS. - awaiting surgeon ordered UA, patient plans to take this to [facility] and 08/09/24 surgeon ordered medical clearance, Dr. Sakshi Almazan. - cardiology office visit 06/09/24 [facility]: "...hypotension. Minimal coronary atherosclerosis by remote cardiac catheterization...mild bilateral carotid artery disease...esophageal carcinoma in situ, Alberto's esophagus status post ablation...lumbar decompression and L2 to S1 fusion under general anesthesia...no acute concerns...stable from a cardiac standpoint with no angina or nitroglycerin use...in terms of preop risk assessment, per Cody criteria, patient was counseled that he would be placed at a moderate risk for any adverse perioperative events associated with lumbar decompression and L2 to S1 fusion surgery...no other cardiac testing or interventions would further lower that risk...wishes to proceed with surgery..." Chart Review Chart Review: Pending: Refer to Additional Notes / Consult section and Patient seen in Pre Admission Testing Teaching & Discussion Pre-Anesthesia Teaching/Discussion Notes: Instructed NPO after midnight before surgery, except medications with 15 cc of water. Medication instructions provided according to the PAT guidelines. History Surgery Operation Date: 08/24/24 07:45 Proposed Procedures p L2-S1 Decompression and Fusion with Spinal Cord Monitoring - Vahe Polo DO Height/Weight Height: 6 ft 3 in Weight: 85.7 kg Allergies Allergy/AdvReac Type Severity Reaction Status Date / Time No Known Allergies Allergy Verified 07/14/24 07:33 Medications Home Medications Medication Instructions Recorded Confirmed Last Taken gabapentin 300 mg capsule 600 mg PO BID 12/29/17 07/14/24 10/04/23 metformin 1,000 mg tablet 1,000 mg PO BIDM 12/29/17 07/14/24 10/04/23 multivit with minerals-iron 18 1 tab PO QAM 12/29/17 07/14/24 10/04/23 mg-folic ac 400 mcg-vit K 25 mcg tablet (Multi-Day Plus Minerals) pantoprazole 40 mg tablet,delayed 40 mg PO BID 12/29/17 07/14/24 10/04/23 release (Protonix) sertraline 50 mg tablet 50 mg PO HS 0907/14/24 10/04/23 tamsulosin 0.4 mg capsule 0.8 mg PO QAM 12/29/17 07/14/24 10/04/23 insulin glargine 100 unit/mL 15 unit subcut 07/01/19 07/14/24 10/04/23 subcutaneous solution rosuvastatin 40 mg tablet 40 mg PO 01/17/21 07/14/24 10/04/23 cyanocobalamin (vitamin B-12) 100 100 mcg PO QAM 10/06/21 07/14/24 10/04/23 mcg tablet (Vitamin B-12) fluticasone 250 mcg-salmeterol 50 1 inh inhalation BID 10/06/21 07/14/24 10/04/23 mcg/dose blistr powdr for inhalation metoprolol succinate 25 mg 12.5 mg PO QAM 10/06/21 07/14/24 10/04/23 tablet,extended release 24 hr aspirin 81 mg tablet,delayed 81 mg PO QAM 01/06/23 07/14/24 10/04/23 release (Adult Aspirin Regimen) acetaminophen 325 mg tablet 650 mg PO Q6H PRN Pain 10/05/23 07/14/24 Unknown (Tylenol) amoxicillin 500 mg capsule 2,000 mg PO DIRECTED PRN 1 HR 10/05/23 07/14/24 Unknown PRIOR TO DENTAL PROCEDURES cholecalciferol (vitamin D3) 50 50 mcg PO QAM 10/05/23 07/14/24 10/04/23 mcg (2,000 unit) capsule (Vitamin D3) dicyclomine 10 mg capsule 10 mg PO TID PRN ABD PAIN 10/05/23 07/14/24 Unknown latanoprost 0.005 % eye drops 1 drp OPB 10/05/23 07/14/24 10/04/23 magnesium oxide 400 mg (241.3 mg 400 mg PO QAM 10/05/23 07/14/24 10/04/23 magnesium) tablet (MgO) potassium chloride 10 mEq 5 meq PO QAM 10/05/23 07/14/24 10/04/23 tablet,extended release(part/cryst) pramipexole 0.25 mg tablet 0.25 mg PO 10/05/23 07/14/24 10/04/23 psyllium 1 packet PO QAM 10/05/23 07/14/24 10/04/23 tramadol 50 mg tablet 50 mg PO Q6H PRN Pain 10/05/23 07/14/24 Unknown Lactobacillus acidophilus 250 500 mmu cells (2 x 250 million 10/08/23 07/14/24 Unknown million cell capsule (Probiotic cell) PO DAILY #60 caps Acidophilus) ibuprofen 200 mg tablet 200 mg PO Q6H PRN Pain 07/14/24 07/14/24 Unknown Past Medical History Medical History (Updated 07/22/24 @ 13:21 by Nataliia Carter PA-C) Alberto's esophagus BPH (benign prostatic hyperplasia) CAD (coronary artery disease) follows with Dr. House COPD (chronic obstructive pulmonary disease) no res inh use per pt Depression with anxiety Diabetes mellitus, type 2 Diabetic neuropathy feet History of blood transfusion during diverticulitis History of diverticulitis last episode 4 years ago HLD (hyperlipidemia) HTN (hypertension) controlled, stable per pt Hx of Clostridium difficile infection (~2021) Hx of myocardial infarction remote Poor historian Restless leg syndrome Temporomandibular joint disorder occasional locking-last occurred several weeks ago Patient denies h/o stroke, seizures, heart failure, blood clots/DVTs or blood transfusions. Exercise / Class Metabolic Activity II 4-5 Yardwork/Stairs/Walk up hill (denies chest discomfort or shortness of breath with one flight of stairs) Past Family History Family History Sister Family history of diabetes mellitus Brother Family history of diabetes mellitus Uncle Family history of diabetes mellitus Father Family history of diabetes mellitus Past Surgical History Surgical History (Updated 07/22/24 @ 13:11 by Nataliia Carter PA-C) History of back surgery pt unsure of level History of cardiac cath Remote history of, mild, nonobstructive CAD noted History of carpal tunnel release right History of cataract surgery bilat History of cholecystectomy History of colonoscopy History of cystoscopy with stent History of esophagogastroduodenoscopy (EGD) multiple History of tonsillectomy History of tooth extraction History of total knee replacement bilat Hx of inguinal hernia repair Hx of total shoulder replacement bilat Squamous cell carcinoma of nose removed Past Anesthesia History No Hx of Anesthesia Complications and No Family Hx of Anesthesia Complications History of PONV No Hx of PONV and No Hx of Motion Sickness Social History Smoking Status: Former smoker Do You Dip or Chew Tobacco: No Smoking End Date: 1989 Hx Alcohol Use: Yes Alcohol type: beer, wine and hard liquor alcohol intake frequency: a few times a month Hx Substance Use: No substance use type: does not use Review of Systems Patient denies chest pain, shortness of breath, dyspnea on exertion, snoring, witnessed apneas, reflux, fever, chills, cough, wheezing, or palpitations. Physical Exam Vital Signs Vitals BP 102/60 P 76 TEMP 97.7 SP02 94% on RA RESP 17 Physical Patient resting comfortably in chair in no acute distress, alert and oriented, responding appropriately throughout visit Full cervical extension range of motion without pain TMD 3.5 finger breadths Mallampati Score 2 Dentition: bridge; denies chipped or loose teeth, caps/crowns, implants or bridges Lungs: normal respiratory effort. Good air movement, clear throughout to auscultation, no adventitious breath sounds Cardiac: regular rate and rhythm, no murmurs noted Carotid arteries: negative bruit bilat Lab Results Anesthesia Preop Results Results Anesthesia Widget: WBC 5.04 K/ul (4.8-10.8) 07/22/24 Hgb 14.1 g/dl (14.0-18.0) 07/22/24 Hct 41.6 % (42.0-52.0) L 07/22/24 Plt 171 K/uL (130-400) 07/22/24 Na 136 mmol/L (136-145) 07/22/24 K 4.4 mmol/L (3.5-5.1) 07/22/24 Cl 103 mmol/L (98-107) 07/22/24 CO2 26 mmol/L (21-32) 07/22/24 BUN 19 mg/dl (6-23) 07/22/24 Creat 1.31 mg/dl (0.6-1.4) 07/22/24 Glucose Level 171 mg/dl (70-99(Fasting)) H 07/22/24 PT 11.9 Seconds (9.0-12.0) 07/22/24 PTT 33 Seconds (21-31) H 07/22/24 INR 1.1 (0.9-1.1) 07/22/24 HA1c 8.0 % (4.5-5.6) H 07/22/24 Blood Type A Positive 07/22/24 Antibody Screen NEGATIVE 07/22/24 Testing Laboratory Results Surgeon's office made aware of elevated A1c. Electrocardiogram Date: 06/09/24 NSR, rate 70 bpm Septal infarct, cited on or before 08/16/22 No significant change vs 06/17/23 EKG Chest X-Ray Date: 07/22/24 No acute findings. Echocardiogram Date: 08/26/23 EF > 70% Normal LV wall motion Moderate cLVH Grade I diastolic dysfunction Moderate aortic valve sclerosis, no aortic stenosis Stress Test Date: 08/26/23 MPHR 58% Normal without evidence of scar or inducible ischemia EF 68% Other Testing Cardiac event monitor 02/13/24 Sinus rhythm Min 49 bpm, avg 67, max 171 bpm Supraventricular tachycardia runs occurred, fastest interval lasting 5 beats with a max rate of 171 bpm Carotid doppler 01/28/24 < 50% stenosis ICAs bilat Abdomen pelvis CT 12/11/23 1. Left-sided nephrolithiasis. No ureteral stones. No hydronephrosis. 2. There is mild urothelial thickening and periureteral edema within the left ureter which has improved. This may be due to the recently passed stone. A mild pyelitis is not excluded. 3. Bladder wall thickening. This is likely due to a combination of underdistention and chronic outlet obstruction from the enlarged prostate gland. Recommend correlation with urinalysis to exclude a cystitis. 4. Near-complete resolution of the acute diverticulitis at the junction of the descending colon/sigmoid colon within the minimal pericolonic fat stranding remaining. 5. Additional findings as described above
--- OUTSIDE RECORDS SUMMARY | 2024-08-24 06:30 | External Medical Summary | Summary of Care ---
Author Name Unknown Organization [facility] Address [address] [facility] [place] [address] Phone [phone] Care Team Providers Care Client Support Associate Name Role Phone Sakshi Barros DO Primary Care Provider Reason for Visit * Reason Comments pre-op exam Pt scheduled for morgan k surgery 08/24/[address] Polo. Encounter Details Date Type Department Care Team (Late st Contact Info) Description 08/09/2024 9:40 AM EDT Office Visit Family Medicine [address] [place] [address] Steffanie Brizuela PA-C [address] [place] [address] [place] [address] Preop examination* Allergies No known active allergiesdocumented as of this encounter (statuses as of 08/09/2024) Medications M-VIT PO TABS one a day Active VITAMIN B 12 100 MCG PO LOZG one a day Active Magnesium Oxide 400 (240 Mg) MG Oral Tablet Take 1 Tablet by mouth in the morning. Active Vitamin D3 50 MCG (2000 UT) Oral Capsule Take 1 Capsule by mouth in the morning. Active Probiotic 1-250 BILLION-MG Oral Capsule Take by mouth. Activ e OneTouch Delica Plus [id number] s:Type 2 diabetes mellitus with diabetic neuropathy, without long-term current use of insulin (HCC) Test up to four times daily 400 Each 1 3 1:21 PM EDT 08/31/20 23 Active Aspirin 81 MG Oral Tablet Delayed Release (Aspirin 81) Take 1 Tablet by mouth in the morning. Active Metamucil Fiber 51.7 % Oral Packet (Psyllium) Take by mouth. Acti ve Fluticasone-[place] rol 250-50 MCG/ACT Inhalation Aerosol Powder Breath Activated (Advair Diskus)Indications: Asthma-COPD overlap syndrome (HCC) INHALE ONE PUFF BY MOUTH TWICE A DAY-MORNING AND BEFORE BEDTIME. RINSE MOUTH WELL AFTER EACH USE 180 Each 1 09/09/19 24 025 Active Pantoprazole Sodium 40 MG Oral Tablet Delayed Release (Protonix)Indicatio ns:Alberto's esophagus without dysplasia TAKE ONE TABLET BY MOUTH EVERY MORNING AND TAKE ONE TABLET BY MOUTH AT BEDTIME 200 Tablet 3 5 9:54 AM EDT 09/14/19 24 025 Active Rosuvastatin Calcium 40 MG Oral Tablet (Crestor)Indication s:Hyperlipidemia with target LDL less than 70 TAKE ONE TABLET BY MOUTH EVERY DAY 90 Tablet 3 5 1:16 PM EDT 10/08/19 24 025 Active Additional Information Patient taking differently: HS, Reported on 06/21/2024 OneTouch Verio In Vitro Strip (Glucose Blood) USE UP TO THREE TIMES A DAY 300 Strip 3 10/10/19 24 025 Active Unifine Pentips 32G X 4 MM (Insulin Pen Needle)Indications: DM type 2, goal HbA1c < 8% ([facility]) USE ONCE DAILY 100 Each 3 5 4:21 PM EST 10/20/19 24 025 Active Latanoprost 0.005 % Ophthalmic Solution (Xalatan) INSTILL ONE DROP INTO BOTH EYES EVERY NIGHT 10 mL 3 5 8:31 AM EST 12/08/19 24 Active PreviDent 5000 Enamel Protect 1.1-5 % Dental Gel [place] once a day preferably before bedtime do not rinse out 100 mL 3 4 3:20 PM EDT 12/31/19 24 Active Ibuprofen 200 MG Oral Tablet (Motrin) Take 4 Tablets by mouth every morning. Active Metoprolol Tartrate 25 MG Oral Tablet (Lopressor) Take 1 Tablet by mouth every morning. Take 1/2 tablet every morning Active Lantus SoloStar 100 UNIT/ML Subcutaneous Solution Pen-injectorIndicat ions:DM type 2, goal HbA1c < 8% (HCC) INJECT 15 UNITS UNDER THE SKIN DAILY 15 mL 2 5 3:28 PM EDT 04/09/20 24 025 Active Sertraline HCl 50 MG Oral Tablet (Zoloft)Indications :Anxiety TAKE 1 TABLET BY MOUTH EVERYDAY AT BEDTIME 90 Tablet 2 05/07/19 25 Active Gabapentin 300 MG Oral Capsule (Neurontin) TAKE TWO CAPSULES BY MOUTH TWICE A DAY -- IN THE MORNING AND BEFORE BEDTIME 400 Capsule 1 5 3:23 PM EST 05/20/19 25 026 Active Tamsulosin HCl 0.4 MG Oral Capsule (Flomax)Indications :BPH without obstruction/lower urinary tract symptoms,Ureteral stone Take 2 Capsules by mouth in the morning. 200 Capsule 1 5 6:50 PM EST 06/13/19 25 Active Pramipexole Dihydrochloride 0.25 MG Oral Tablet (Mirapex)Indication s:Restless legs syndrome TAKE ONE TABLET BY MOUTH AT BEDTIME 100 Tablet 3 5 12:49 PM EDT 07/21/19 25 026 Active metFORMIN HCl 1000 MG Oral Tablet (Glucophage)Indicat ions:Type 2 diabetes mellitus with diabetic neuropathy, unspecified ([facility]) TAKE 1 TABLET BY MOUTH TWICE A DAY WITH BREAKFAST AND DINNER 180 Tablet 1 08/01/19 25 Active documented as of this encounter (statuses as of 08/09/2024) Active Problems Problem Noted Date Diagnosed Date Spinal stenosis of lumbar re gion with neurogenic claudication 02/13/2024 Type 2 diabetes mellitus wit h diabetic neuropathy, without long-term current use of insulin 07/09/2023 Chronic right shoulder pain 08/05/2022 Assessment & Plan (08/05/2022 1:14 PM EDT): Has an appointment to go see Dr. Mendoza, his orthopedic surgeon, next week -continue ice Diabetic polyneuropathy asso ciated with type 2 diabetes mellitus 03/06/2022 Assessment & Plan (08/05/2022 1:12 PM EDT): Current Status: "Stable" for patient / At [...] Statin History of cholecystectomy 10/15/2021 Atherosclerosis of [place] co ronary artery without angina pectoris 05/29/2021 Assessment & Plan (08/05/2022 1:08 PM EDT): Continue statin, metoprolol, lisinopril Not on aspirin due to GI bleeding Assessment & Plan (06/05/2022 1:03 PM EST): Continue statin, metoprolol, lisinopril Not on aspirin due to GI bleeding Occupational exposure to other air contaminants 11/21/2020 Hypomagnesemia 11/10/2020 Recurrent major depressive disorder, in remissio n 05/22/2020 History of RI (myocardial infarction) 05/22/2020 Primary open-angle glaucoma, left eye, mild stag e 06/30/2019 HTN, goal below 140/90 06/30/2019 Assessment & Plan (08/05/2022 1:10 PM EDT): BP stable -continue lisinopril, metoprolol Assessment & Plan (06/05/2022 1:04 PM EST): BP stable Continue above regimen Asthma-COPD overlap syndrome 05/28/2019 Assessment & Plan (08/05/2022 1:11 PM EDT): Oxygen 94% on room air. Emphasized taking Advair twice daily and rinsing mouth. Assessment & Plan (06/05/2022 1:04 PM EST): Oxygen 93% on room air. Denies any shortness of breath. No cough or recent illnesses. Emphasized taking Advair twice daily and rinsing mouth. DM type 2, goal HbA1c < 8% 11/13/2018 Microalbuminuria 08/12/2018 History of GI diverticular bleed 05/13/2018 Assessment & Plan (06/05/2022 1:09 PM EST): No black or bloody stools. No diabetic retinopathy in both eyes 02/04/2018 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-sided sciatica 01/07/2018 Assessment & Plan (06/05/2022 1:07 PM EST): Injection lumbar spine given April 2022 Pain down leg is improved. Still having some pain in the back. Is going to follow-up with pain management. Hx of nonmelanoma skin cancer 08/06/2017 Overview (06/09/2023): squamous cell carcinoma (L nare), basal cell carcinoma (L nare), Aleksander (L lower eyelid 02/13), squamous cell carcinoma in situ (L post auricular region 06/2020, R lateral cheek 06/20) AK (actinic keratosis) 08/06/2017 Overview (06/23/2023): Efudex (scalp/face 06/21) History of esophageal cancer 05/22/2017 Overview (01/21/2018): In Situ. May 2017. Subsequent endoscopy was clear. Status post total left knee replacement 08/13/19 17 Alberto's esophagus without dysplasia 02/07/2016 Overview (02/07/2016): Needs repeat EGD in 12/2016 Assessment & Plan (08/05/2022 1:13 PM EDT): Stable on pantoprazole 40 mg twice daily -follows with GI Assessment & Plan (06/05/2022 1:06 PM EST): Stable on pantoprazole 40 mg twice daily -follows with GI Restless legs syndrome 02/05/2016 Assessment & Plan (06/05/2022 1:07 PM EST): Continue Requip BPH without obstruction/lower urinary tract symp toms 02/05/2016 Assessment & Plan (06/05/2022 1:08 PM EST): Stable on Flomax Hyperlipidemia with target LDL less than 70 01/26 Assessment & Plan (08/05/2022 1:12 PM EDT): Continue rosuvastatin Assessment & Plan (06/05/2022 1:05 PM EST): Continue rosuvastatin Anxiety 02/05/2016 Assessment & Plan (06/05/2022 1:08 PM EST): Continue sertraline documented as of this encounter (statuses as of 08/09/2024) Resolved Problems Problem Noted Date Diagnosed Date Resolved Date Absolute anemia 02/21/2021 06/12/2022 Abnormal thyroid blood test 03/30/2020 11/21/2020 Overview (03/30/2020): From Dr. Nuñez. Will recheck through [facility] next time he is seen. Major depressive disorder, s ben episode, unspecified 06/30/2019 05/22/2020 Diverticulitis of colon 01/07/201804/28 Esophageal adenocarcinoma 06/05/2017 Overview (07/14/2018): In situ H/O nonmelanoma skin cancer 01/10/2017 08/06/2017 Basal cell carcinoma of nose 07/09/2016 01/10/2017 Heartburn 02/05/2016 11/13/2018 Type 2 diabetes mellitus wit h diabetic neuropathy 02/05/2016 06/05/2022 Assessment & Plan (06/05/2022 1:05 PM EST): Blood sugars usually range 120 to 150. Last hemoglobin A1c [id number] continue metformin, Lantus Rectal bleeding 02/05/2016 01/10/2017 Overview (02/05/2016): Had EGD/colonoscopy Acute blood loss anemia 02/05/201612/27 HTN, goal below 140/90 02/05/201601/10 Neuropathy 02/05/2016 01/10/2017 AK (actinic keratosis) 01/12/201401/10 Overview (05/18/2014): Efudex (Cheli maria antonia [place])- 04/2014 documented as of this encounter (statuses as of 08/09/2024) Immunizations Name Administration Dates Next Due COVID-19 mRNA, LNP-s, No Pre serve, 2-Dose Series (Pfizer) 04/05/2021,07/04/2020,06/13/2020 COVID-19, MRNA-LNP, PF, 30 M CG/0.3 mL, 12 YRS AND ABOVE, IM (PFIZER-Comirnaty) 02/13/2024,02/24/2023 Pneumococcal Conjugate Vacc, 13 Valent (Prevnar) 01/19/2016 Pneumococcal Polysaccharide PPV23 (Pneumovax) 08/08/2017 Seasonal Influenza Vac., MDV , IM, 0.5 mL (Fluzone) 01/19/2016 Seasonal Influenza, High Dos e, Trivalent, PF, IM (Fluzone HD) 01/27/2024,03/07/2019 Seasonal Influenza, PF, 6 M & above, IM , (FluLaval or Fluzone) 01/26/2019,01/07/2018 Seasonal Influenza, Quadriva lent Hd (Fluzone Hd) 02/24/2023,02/15/2022,01/31/2021 Seasonal Influenza, Quadriva lent Hd, 65+ Yrs 03/09/2020 Seasonal Influenza, Quadriva lent, No Preserve, IM 01/10/2017 Seasonal Influenza, Quadriva lent,with Preserve, 3 yr & above, IM 01/19/2016 TDAP (age 10 and older)(Boostrix) 01/10/2017 Zoster [...] Recorded Sex Assigned at Not on file Legal Sex Male 5:28 AM EST Gender Identity Not on file Sexual Orientation Not on file documented as of this encounter Last Filed Vital Signs Vital Sign Reading Time Taken Comments Blood Pressure 111/62 08/09/2024 9:58 AM EDT Pulse 86 08/09/2024 9:58 AM EDT Temperature - - Respiratory Rate - - Oxygen Saturation 91% 08/09/2024 9:58 AM EDT Inhaled Oxygen Concentration - - Weight 83.5 kg (184 lb) 08/09/2024 9:58 AM EDT Height - - Body Mass Index 23.62 03/24/2024 9:30 AM EST documented in this encounter Progress Notes * Steffanie Brizuela PA-C - 08/09/2024 9:59 AM EDT Chief Complaint Patient presents with pre-op exam Pt scheduled for back surgery 08/24/[address] Polo. Pt here today for preop. He is having back surgery with Dr. Polo on 08/24/24. Already had labs andEKG - all ok. Pt is not sure what exactly the is having done. Review of patient's allergies indicates: No Known Allergies Current Outpatient Medications Medication Sig Dispense Refill M-VIT PO TABS one a day VITAMIN B 12 100 MCG PO LOZG one a day Magnesium Oxide 400 (240 Mg) MG Oral Tablet Take 1 Tablet by mouth in the morning. Vitamin D3 50 MCG (2000 UT) Oral Capsule Take 1 Capsule by mouth in the morning. Probiotic 1-250 BILLION-MG Oral Capsule Take by mouth. OneTouch Delica Plus [id number] Test up to four times daily 400 Each 1 Aspirin 81 MG Oral Tablet Delayed Release (Aspirin 81) Take 1 Tablet by mouth in the morning. Metamucil Fiber 51.7 % Oral Packet (Psyllium) Take by mouth. Fluticasone-Salmeterol 250-50 MCG/ACT Inhalation Aerosol Powder Breath Activated (Advair Diskus) INHALE ONE PUFF BY MOUTH TWICE A DAY-MORNING AND BEFORE BEDTIME. RINSE MOUTH WELL AFTER EACH USE 180 Each 1 Pantoprazole Sodium 40 MG Oral Tablet Delayed Release (Protonix) TAKE ONE TABLET BY MOUTH EVERY MORNING AND TAKE ONE TABLET BY MOUTH AT BEDTIME 200 Tablet 3 Rosuvastatin Calcium 40 MG Oral Tablet (Crestor) TAKE ONE TABLET BY MOUTH EVERY DAY (Patient takingdifferently: at bedtime.) 90 Tablet 3 OneTouch Verio In Vitro Strip (Glucose Blood) USE UP TO THREE TIMES A DAY 300 Strip 3 Unifine Pentips 32G X 4 MM (Insulin Pen Needle) USE ONCE DAILY 100 Each 3 Latanoprost 0.005 % Ophthalmic Solution (Xalatan) INSTILL ONE DROP INTO BOTH EYES EVERY NIGHT 10 mL3 PreviDent 5000 Enamel Protect 1.1-5 % Dental Gel [place] once a day preferably before bedtime do not rinse out 100 mL 3 Ibuprofen 200 MG Oral Tablet (Motrin) Take 4 Tablets by mouth every morning. Metoprolol Tartrate 25 MG Oral Tablet (Lopressor) Take 1 Tablet by mouth every morning. Take 1/2 tablet every morning Lantus SoloStar 100 UNIT/ML Subcutaneous Solution Pen-injector INJECT 15 UNITS UNDER THE SKIN DAILY15 mL 2 Sertraline HCl 50 MG Oral Tablet (Zoloft) TAKE 1 TABLET BY MOUTH EVERYDAY AT BEDTIME 90 Tablet 2 Gabapentin 300 MG Oral Capsule (Neurontin) TAKE TWO CAPSULES BY MOUTH TWICE A DAY -- IN THE MORNINGAND BEFORE BEDTIME 400 Capsule 1 Tamsulosin HCl 0.4 MG Oral Capsule (Flomax) Take 2 Capsules by mouth in the morning. 200 Capsule 1 Pramipexole Dihydrochloride 0.25 MG Oral Tablet (Mirapex) TAKE ONE TABLET BY MOUTH AT BEDTIME 100 Tablet 3 metFORMIN HCl 1000 MG Oral Tablet (Glucophage) TAKE 1 TABLET BY MOUTH TWICE A DAY WITH BREAKFAST AND DINNER 180 Tablet 1 No current facility-administered medications for this visit. Past Medical History: Diagnosis Date Acute blood loss anemia AK (actinic keratosis) 01/12/2014 Efudex ([place] Vazquez)- 04/2014 Anxiety 02/05/2016 Basal cell carcinoma of nose 07/09/2016 BPH without obstruction/lower urinary tract symptoms 02/05/2016 Heartburn 02/05/2016 Hypertension Mixed hyperlipidemia 02/05/2016 Rectal bleeding 02/05/2016 Had EGD/colonoscopy Restless legs syndrome 02/05/2016 Type 2 diabetes mellitus with hemoglobin A1c goal of less than 7.0% ([facility]) 02/05/2016 Social History Socioeconomic History Marital status: Spouse name: Not on file Number of children: Not on file Years of education: Not on file Highest education level: Not on file Occupational History Not on file Tobacco Use Smoking status: Former Current packs/day: 0.00 Average packs/day: 2.0 packs/day for 32.0 years (64.0 ttl pk-yrs) Types: Cigarettes Start date: 11/26/1957 Quit date: 11/26/1989 Years since quittin.7 Smokeless tobacco: Never Vaping Use Vaping status: Never Used Substance and Sexual Activity Alcohol use: Yes Comment: occ. 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 Social Needs Financial Resource Strain: Not on file Food Insecurity: No Food Insecurity (05/19/2019) Hunger Vital Sign Worried About Running Out of Food in the Last Year: Never true Ran Out of Food in the Last Year: Never true Transportation Needs: Not on file Social Connections: Not on file Housing Stability: Not on file O;Blood pressure 111/62, pulse 86, weight 184 lb (83.5 kg), SpO2 91%. GENERAL: alert, healthy, and no distress NECK: supple, no adenopathy, no bruits, thyroid normal size, non-tender, without nodularity EYES: PERRLA, conjunctiva are pink and non-injected, sclera clear EARS: External ears normal, Canals clear, TM's Normal NOSE: no mucosal erythema, no mucosal edema, no purulent discharge OROPHARYNX: no exudate, no erythema, lips, buccal mucosa, and tongue normal, and mucous membranes are moist HEART: regular rate & rhythm, no murmur, and no gallops LUNGS: chest symmetric with normal AP diameter, no chest deformities noted, no chest wall tenderness, lungs clear to auscultation A:Preop examination (Primary) Pt cleared for surgery. Any questions/problems, please call. Follow Up: Return if symptoms worsen or fail to improve. Steffanie Brizuela PA-C documented in this encounter Plan of Treatment Upcoming Encounters Date Type Department Care Team (Late st Contact Info) Description 08/16/2024 10:20 AM EDT Office [address] [place] [id number] Janeen Pederson CRNP [address] [place] [address] [place] [id number] 08/30/2024 10:20 AM EDT Office Visit Podiatry [facility] [address] [place] [phone] Melinda Stallworth, MABEL [address] [facility] [place] [id number] 02/15/2025 9:30 AM EDT Office Visit [address] [place] [phone] Sakshi Barros DO [address] [place] [address] [place] [phone] 08/30/2025 11:00 AM EDT Office Visit [address] [place] [phone] Charline Hurst PA-C [address] [place] [address] [place] [id number] Scheduled Procedures Name Priority Associated Diagnoses Date/Ti me ESOPHAGOGASTRODUODENOSCOPY ( EGD), FLEXIBLE, TRANSORAL, DIAGNOSTIC Recall Alberto's esophagus with esophagitis COLONOSCOPY FLEXIBLE PROXIMAL DIAGNOSTIC Recall Screening for colon cancer Health Maintenance Due Date Last Done Comments Depression Monitoring 1957 Alpha-1 Antitrypsin 01/16/1964 Adult Wellness Visit 11/18/2019 11/17/2018 B-12 07/08/2024 07/09/2023, 05/29, 01/31/2021, Additional history exists COVID-19 Vaccine ( season) 2024 02/13/2024, 02/24/2023, 01/08/2022, Additional history exists Diabetic Eye Exam 11/02/2024 11/03/2023, , 09/24/2022, Additional history exists HbA1c 01/22/2025 07/22/2024, 01/26, 06/17/2023, Additional history exists Diabetic Foot Exam 02/12/2025 02/13/2024, 0 12/25/2022, 03/06/2022, Additional history exists Albumin/Creatinine Ratio 03/11/202503/11/ 024, 02/11/2024, 06/12/2022, Additional history exists O2 ASSESSMENT COMPLETED IN PAST YEAR FOR COPD 04/01/2025 04/01/2024 GFR 07/22/2025 07/22/2024, 05/29, 02/13/2024, Additional history exists DTap/Tdap Vaccines (2 - Td or Tdap) 01/10/2027 01/10/2017 Alberto's Esophagus Surveilance 04/01/2027 04/01/2024, 04/01/2024, 03/04/2023, Additional history exists Pneumococcal Vaccine: 50+ Years Completed 08/08/2017, 01/19/2016 Zoster Vaccines Completed 01/14/2019, 09/0 04/2018, 11/12/2018 Influenza Vaccine (FLU shot) Completed 04/2023, 02/24/2023, 02/15/2022, Additional history exists HPV (Gardasil) Vaccine Aged Out No lo nger eligible based on patient's age to complete this topic Hepatitis B Vaccine Aged Out No longe r eligible based on patient's age to complete this topic MENINGOCOCCAL (MENACTRA/MENVEO) Aged Out No longer eligible based on patient's age to complete this topic Meningitis B Vaccine (Bexsero/Trumemba) Aged Out No longer eligible based on patient's age to complete this topic documented as of this encounter Medical Devices Implanted Type [employer] Department Chair Device Identifier Shelf Expiration Date Model / Serial / Lot Mesh 3dmax 3.1x5.3in t Med - [id number] Implanted:Qty: 1 on 05/02/2023 by Jean Claude Givens MD at OR [facility] Right: Brittani JAMES BARD : DAVOL 03/25/2027 [id number] / / [id number] documented as of this encounter Visit Diagnoses Diagnosis Advanced care planning/counseling discussion- Primary Other specified counseling Atherosclerosis of [place] coronary artery of [place] heart without angina pectoris Essential (primary) hypertension Unspecified essential hypertension Asthma-COPD overlap syndrome (HCC) Hyperlipidemia with target LDL less than 70 Other and unspecified hyperlipidemia Type 2 diabetes mellitus with diabetic neuropathy, with long-term current use of insulin (HCC) Alberto's esophagus without dysplasia Alberto's esophagus 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-sided sciatica Restless legs syndrome Restless legs syndrome (RLS) BPH without obstruction/lower urinary tract symptoms Hypertrophy of prostate without urinary obstruction and other lower urinary tract symptoms (LUTS) Anxiety Anxiety state, unspecified History of GI diverticular bleed Personal history of other diseases of digestive system Recurrent major depressive disorder, in remission (HCC) Primary open-angle glaucoma, left eye, mild stage HTN, goal below 140/90 Unspecified essential hypertension Occupational exposure to other air contaminants Atherosclerosis of [place] coronary artery of [place] heart without angina pectoris- Primary Essential (primary) hypertension Unspecified essential hypertension Asthma-COPD overlap syndrome (HCC) Diabetic polyneuropathy associated with type 2 diabetes mellitus (HCC) Hyperlipidemia with target LDL less than 70 Other and unspecified hyperlipidemia Alberto's esophagus without dysplasia Alberto's esophagus Chronic right shoulder pain Pain in joint, shoulder region Preop examination- Primary Preoperative examination, unspecified documented in this encounter Advance Directives * [...] Discussed due to patient's condition Care Teams Client Support Associate Relationship Specialty Start Date End Date Sakshi Barros DO [address] [place] [address] [place] [id number] PCP - General Internal Medicine 02/05/16 documented as of this encounter
--- OUTSIDE RECORDS SUMMARY | 2024-08-24 06:30 | External Medical Summary | Summary of Care ---
Author Name Unknown Organization [facility] Address [address] [facility] [place] [address] Phone [phone] Care Team Providers Care Conventional Underwriter Name Role Phone Sakshi Barros Primary Care Provider + [phone] Reason for Visit * Reason Comments Re-Check Encounter Details Date Type Department Care Team (Late st Contact Info) Description 08/16/2024 10:20 AM EDT Office Visit Family Medicine [address] [phone] Janeen Pederson [address] [place] [id number] DM type 2, goal HbA1c < 8% ([facility])*; Chronic obstructive pulmonary disease, unspecified COPD type ([facility]); HTN, goal below 140/90; Hyperlipidemia with target LDL less than 70 Allergies No known active allergiesdocumented as of this encounter (statuses as of 08/16/2024) Medications M-VIT PO TABS one a day [...] by mouth. Activ e OneTouch Delica Plus [id number] s:Type 2 diabetes mellitus with diabetic neuropathy, without long-term current use of insulin ([facility]) Test up to four times daily 400 Each 1 3 1:21 PM EDT 12/27/19 23 Active Aspirin 81 MG Oral Tablet [...] Information Patient taking differently: HS, Reported on 08/16/2024 OneTouch Verio In Vitro Strip (Glucose Blood) USE UP TO THREE TIMES A DAY 300 Strip 3 10/10/19 24 025 Active Unifine Pentips 32G X 4 MM (Insulin Pen Needle)Indications: DM type 2, goal HbA1c < 8% ([facility]) USE ONCE DAILY 100 Each 3 5 5:18 PM EDT 10/20/19 24 025 Active Latanoprost 0.005 % Ophthalmic Solution (Xalatan) INSTILL ONE DROP INTO BOTH EYES EVERY NIGHT 10 mL 3 5 8:31 AM EST 12/08/19 24 Active PreviDent 5000 Enamel Protect 1.1-5 % Dental Gel [place] once a day preferably before bedtime do [...] 2 diabetes mellitus with diabetic neuropathy, unspecified ([facility]) TAKE 1 TABLET BY MOUTH TWICE A DAY WITH BREAKFAST AND DINNER 180 Tablet 1 08/01/19 25 Active Dicyclomine HCl 10 MG Oral Capsule (Bentyl) TAKE ONE CAPSULE BY MOUTH THREE TIMES A DAY (MORNING, NOON AND BEDTIME) NEEDED FOR ABDOMNIAL PAIN 270 Capsule 3 7:39 PM EDT 11/07/19 23 025 Discontin ued(Patie nt preferenc e/discont inuation) documented as of this encounter (statuses as of 08/16/2024) Active Problems Problem Noted Date Diagnosed Date Chronic obstructive pulmonary disease 08/16/2024 Assessment & Plan (08/16/2024 12:28 PM EDT): - stable / no changes Depression, unspecified 08/16/2024 Spinal stenosis of lumbar re gion with neurogenic claudication 02/13/2024 Type 2 diabetes mellitus wit h diabetic neuropathy, without long-term current use of insulin 07/09/2023 Chronic right shoulder pain 08/05/2022 Assessment & Plan (08/05/2022 1:14 PM EDT): Has an appointment to go see Dr. Mendoza, his orthopedic surgeon, next week -continue ice Diabetic polyneuropathy assserafin whyte with type 2 diabetes mellitus 03/06/2022 Assessment [...] Statin History of cholecystectomy 10/15/2021 Atherosclerosis of [place] co ronary artery without angina pectoris 05/29/2021 [...] goal below 140/90 06/30/2019 Assessment & Plan (08/16/2024 12:28 PM EDT): - stable / no changes Assessment & Plan (08/05/2022 1:10 PM EDT): [...] type 2, goal HbA1c < 8% 11/13/2018 Assessment & Plan (08/16/2024 12:28 PM EDT): - A1C at goal / will plan to repeat in 6 months - continue monitoring BSG at home - monitor diet Microalbuminuria 08/12/2018 History of GI diverticular bleed [...] less than 70 01/26 Assessment & Plan (08/16/2024 12:28 PM EDT): - stable / no changes Assessment & Plan (08/05/2022 1:12 PM EDT): Continue rosuvastatin Assessment & Plan (06/05/2022 1:05 PM EST): Continue rosuvastatin Anxiety 02/05/2016 Assessment & Plan (06/05/2022 1:08 PM EST): Continue sertraline documented as of this encounter (statuses as of 08/16/2024) Resolved Problems Problem Noted Date Diagnosed Date Resolved Date Absolute anemia 02/21/2021 06/12/2022 Abnormal thyroid blood test 03/30/2020 11/21/2020 Overview (03/30/2020): From Dr. Nuñez. Will recheck through [employer] next time he is seen. Major depressive [...] AK (actinic keratosis) 01/12/201401/10 Overview (05/18/2014): Efudex (Salina Vazquez)- 04/2014 documented as of this encounter (statuses as of 08/16/2024) Immunizations Name Administration Dates Next Due COVID-19 mRNA, LNP-s, No Pre serve, 2-Dose Series ([place]) 04/05/2021,07/04/2020,06/13/2020 COVID-19, MRNA-LNP, PF, 30 M CG/0.3 [...] Date Recorded PHQ Adult Total Score 0 08/16/2024 Hunger Vital Sign Answer Date Recorded Worried [...] Sign Reading Time Taken Comments Blood Pressure 114/64 08/16/2024 10:18 AM EDT Pulse 82 08/16/2024 10:18 AM EDT Temperature 35.7 °C (96.2 °F) 08/16/2024 10:18 AM E DT Respiratory Rate 16 08/16/2024 10:18 AM EDT Oxygen Saturation 95% 08/16/2024 10:18 AM EDT Inhaled Oxygen Concentration - - Weight 82.6 kg (182 lb) 08/16/2024 10:18 AM EDT Height - - Body Mass Index 23.37 03/24/2024 9:30 AM EST documented in this encounter Progress Notes * Janeen Pederson CRNP - 08/16/2024 10:27 AM EDT Images from the original note were not included. Subjective Vahe Resendez is a 79 year old male that presents for Re-Check Routine follow up. No acute concerns today. Having his back surgery on 08/24/[address] Polo. Since last visit did have EGD for surveillance of esophageal cancer and no metaplasia or dysplasia noted. 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 Following with Dr. Stallworth for podiatry for diabetic foot ulcer/callous on right foot. DM II currently on Metformin and Lantus. Checking BSG at home and reports they have been running 120's-140's in the morning. Usually fluctuate more throughout the day. A1C last month was 8.0 which was up from previous of 7.5. HTN is on Metoprolol. BP has been good. No cp or sob. COPD breathing is good. Using Advair inhaler. Patient Active Problem List Diagnosis Restless legs syndrome BPH without obstruction/lower urinary tract symptoms Hyperlipidemia with target LDL less than 70 Anxiety Alberto's esophagus without dysplasia Status post total left knee replacement History of esophageal cancer Hx of nonmelanoma skin cancer AK (actinic keratosis) 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-sided sciatica No diabetic retinopathy in both eyes History of GI diverticular bleed Microalbuminuria DM type 2, goal HbA1c < 8% ([facility]) Asthma-COPD overlap syndrome ([facility]) Primary open-angle glaucoma, left eye, mild stage HTN, goal below 140/90 Recurrent major depressive disorder, in remission ([facility]) History of UT (myocardial infarction) Hypomagnesemia Occupational exposure to other air contaminants Atherosclerosis of [place] coronary artery without angina pectoris History of cholecystectomy Diabetic polyneuropathy associated with type 2 diabetes mellitus ([facility]) Chronic right shoulder pain Type 2 diabetes mellitus with diabetic neuropathy, without long-term current use of insulin ([facility]) Spinal stenosis of lumbar region with neurogenic claudication Current Outpatient Medications Medication Sig Dispense Refill M-VIT PO TABS one a day VITAMIN B 12 100 MCG PO LOZG one a day Magnesium Oxide 400 (240 Mg) MG Oral Tablet Take 1 Tablet by mouth in the morning. Vitamin D3 50 MCG (2000 UT) Oral Capsule Take 1 Capsule by mouth in the morning. Probiotic 1-250 BILLION-MG Oral Capsule Take by mouth. [facility] [employer] Delica Plus [id number] Test up to four times daily 400 [...] (Patient takingdifferently: at bedtime.) 90 Tablet 3 ColecticaTouch Verio In Vitro Strip (Glucose Blood) USE UP TO THREE TIMES A DAY 300 Strip 3 Unifine Pentips 32G X 4 MM (Insulin Pen Needle) USE ONCE DAILY 100 Each 3 Latanoprost 0.005 % Ophthalmic Solution (Xalatan) INSTILL ONE DROP INTO BOTH EYES EVERY NIGHT 10 mL3 PreviDent 5000 Enamel Protect 1.1-5 % Dental Gel [place] once a day preferably before bedtime do [...] of patient's allergies indicates: No Known Allergies Past Medical History: Diagnosis Date Acute blood loss anemia AK (actinic keratosis) 01/12/2014 Efudex (Salina Vazquez)- 04/2014 Anxiety 02/05/2016 Basal cell carcinoma of nose 07/09/2016 BPH without obstruction/lower urinary tract symptoms 02/05/2016 Heartburn 02/05/2016 Hypertension Mixed hyperlipidemia 02/05/2016 Rectal bleeding 02/05/2016 Had EGD/colonoscopy Restless legs syndrome 02/05/2016 Type 2 diabetes mellitus with hemoglobin A1c goal of less than 7.0% ([facility]) 02/05/2016 Past Surgical History: Procedure Laterality Date ABD/PELVIS CT W/O IV AND W/O PO CONTRAST 01/04/2016 [facility]-showed multiple calculi ARTHROPLASTY KNEE TOTAL 2013 Right COLONOSCOPY 01/19/2016 [facility] [place] COLONOSCOPY, DIAGNOSTIC (RECTUM) 02/17/2018 diverticulosis, repeat 10 yrs/COLONOSCOPY FLEXIBLE PROXIMAL DIAGNOSTIC performed by Julien Conway DO at ENDOSCOPY [facility] COLONOSCOPY, DIAGNOSTIC (RECTUM) 01/30/2022 diverticulosis in entire colon, internal hemorrhoids / no specimens collected / COLONOSCOPY FLEXIBLE PROXIMAL DIAGNOSTIC performed by Phillip Shore MD at ENDOSCOPY [facility] COLONOSCOPY, DIAGNOSTIC (RECTUM) 01/19/2021 diverticulosis / INPT [facility] EGD, FLEXIBLE, DIAGNOSTIC N/A 07/22/2017 ESOPHAGOGASTRODUODENOSCOPY (EGD), FLEXIBLE, TRANSORAL, DIAGNOSTIC performed by Khoa Mejia MD atENDOSCOPY [facility] EGD, FLEXIBLE, DIAGNOSTIC N/A 10/22/2017 ESOPHAGOGASTRODUODENOSCOPY (EGD), FLEXIBLE, TRANSORAL, DIAGNOSTIC performed by Khoa Mejia MD atENDOSCOPY [facility] EGD, FLEXIBLE, DIAGNOSTIC N/A 10/13/2018 mild inflammatory changes, hiatal hernia, repeat 1 yr/ESOPHAGOGASTRODUODENOSCOPY (EGD), FLEXIBLE, TRANSORAL, DIAGNOSTIC performed by Julien Conway DO at ENDOSCOPY [facility] EGD, FLEXIBLE, DIAGNOSTIC 12/20/2019 inflammatory changes on bx, repeat 1.5 yrs / ESOPHAGOGASTRODUODENOSCOPY (EGD), FLEXIBLE, TRANSORAL,DIAGNOSTIC performed by Julien Conway DO at ENDOSCOPY [facility] EGD, FLEXIBLE, DIAGNOSTIC 09/05/2021 z-line irregular at 41 cm from insciors, gastritis / biopsies from the esophagus showed mild inflammation ESOPHAGOGASTRODUODENOSCOPY (EGD), FLEXIBLE, TRANSORAL, DIAGNOSTIC performed by Julien Conway DO at ENDOSCOPY [facility] EGD, FLEXIBLE, DIAGNOSTIC 01/30/2022 HH, z-line irregular / biopsies shows mild to moderate inflammation / ESOPHAGOGASTRODUODENOSCOPY (EGD), FLEXIBLE, TRANSORAL, DIAGNOSTIC performed by Phillip Shore MD at ENDOSCOPY [facility] EGD, FLEXIBLE, DIAGNOSTIC 03/04/2023 biopsies normal/recall 1 year/ESOPHAGOGASTRODUODENOSCOPY (EGD), FLEXIBLE, TRANSORAL, DIAGNOSTIC performed by Hayder Vargas MD at ENDOSCOPY [facility] EGD, FLEXIBLE, DIAGNOSTIC 04/01/2024 biopsies acid reflux/repeat 2 years/ESOPHAGOGASTRODUODENOSCOPY (EGD), FLEXIBLE, TRANSORAL, DIAGNOSTIC performed by Chandni Canseco MD at ENDOSCOPY [facility] EGD, FLEXIBLE, W/BIOPSY 01/19/2016 [facility] [place] EGD, W/ENDOSCOPIC US 05/26/2017 [place] / ESOPHAGOGASTRODUODENOSCOPY (EGD), FLEXIBLE, TRANSORAL, ENDOSCOPIC ULTRASOUND performed by Julien Conway DO at ENDOSCOPY [facility] EGD, W/ENDOSCOPIC US N/A 02/19/2022 dilation CBD/multiple stones CBD/ESOPHAGOGASTRODUODENOSCOPY (EGD), FLEXIBLE, TRANSORAL, ENDOSCOPIC ULTRASOUND performed by Julien Conway DO at OR [facility] ERCP, DIAGNOSTIC, SPECIMEN COLLECTION N/A 02/19/2022 benign biliary papillary stenosis/stone and sludge/choledocholithiasis, complete removal/ENDOSCOPICRETROGRADE CHOLANGIOPANCREATOGRAPHY (ERCP) DIAGNOSTIC performed by Julien Conway DO at OR [facility] INCISION OF EYE Unsure which eye-Metal removed and needed suture per patient INJECT DX/THER SUBSTANCE INTERLAMINAR LUMBAR/SACRAL W IMAGE GUIDE 05/01/2022 INJECTION SPINE LUMBAR OR SACRAL performed by Ezequiel Portillo DO at OR [facility] INJECT DX/THER SUBSTANCE INTERLAMINAR LUMBAR/SACRAL W IMAGE GUIDE 10/23/2022 INJECTION SPINE LUMBAR OR SACRAL performed by Ezequiel Portillo DO at OR [facility] INJECT DX/THER SUBSTANCE INTERLAMINAR LUMBAR/SACRAL W IMAGE GUIDE 09/05/2023 INJECTION SPINE LUMBAR OR SACRAL performed by Dvaid Morales DO at OR [facility] LAPAROSCOPY; CHOLECYSTECTOMY 10/07/2021 done through ED at [facility] by Dr Jean Claude Givens LAPAROSCOPY; REPAIR INITIAL INGUINAL HERNIA Right 05/02/2023 LAPAROSCOPIC REPAIR INGUINAL HERNIA INITIAL performed by Jean Claude Givens MD at OR [facility] LASERING OF SECONDARY CATARACT LUMBAR SPINE FUSION, POST INTERBODY 1990 Discectomy MISCELLANEOUS ORDER (HS ONLY) Left 02/01/2019 excision LLL lesion and biopsy, Dr. Wilson RI RMVL LUNG OTHER THAN PNEUMONECTOMY 1 LOBE LOBECT Left 04/24/2022 Post Mohs repair OS, Dr. 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 Social Needs Financial Resource Strain: Not on file Food Insecurity: No Food Insecurity (05/19/2019) Hunger Vital Sign Worried About Running Out of Food in the Last Year: Never true Ran Out of Food in the Last Year: Never true Transportation Needs: Not on file Social Connections: Not on file Housing Stability: Not on file Objective BP 114/64 | Pulse 82 | Temp 96.2 °F (35.7 °C) (Infrared ) | Resp 16 | Wt 182 lb (82.6 kg) | SpO2 95% | BMI 23.37 kg/m² | BSA 2.08 m² Physical Exam Vitals and nursing note reviewed. Constitutional: General: He is not in acute distress. Cardiovascular: Rate and Rhythm: Normal rate and regular rhythm. Heart sounds: Normal heart sounds. Pulmonary: Effort: Pulmonary effort is normal. Breath sounds: Normal breath sounds. Skin: General: Skin is warm and dry. Neurological: Mental Status: He is alert. Results reviewed: BMP results Recent Labs Units 07/22/24 0000 06/16/24 1040 02/13/24 1106 06/23/23 1359 06/17/23 1209 SODIUM - [facility] mmol/L -- 139 139 -- 135 POTASSIUM - [facility] MMOL/L 4.4 4.4 5.2* < > 5.6* CHLORIDE - [facility] mmol/L -- 103 105 -- 104 CO2 - [facility] mmol/L -- -- 20* CREATININE - [facility] MG/DL 1.31 0.9 0.9 -- 1.0 BUN - [facility] mg/dL -- -- 18 < > = values in this interval not displayed. Lipid panel results Recent Labs Units 06/16/24 1040 CHOLESTEROL - [facility] mg/dL 114 HDL CHOLESTEROL - [facility] mg/dL 42 TRIGLYCERIDES - [facility] mg/dL 180* HbA1c results Recent Labs Units 07/22/24 0000 02/11/24 0954 06/17/23 1209 HEMOGLOBIN A1C - [facility] % -- 7.5* 7.7* HEMOGLOBIN, [id number] LAB % 8.0* -- -- Assessment and Plan DM type 2, goal HbA1c < 8% ([facility]) - A1C at goal / will plan to repeat in 6 months - continue monitoring BSG at home - monitor diet Chronic obstructive pulmonary disease, unspecified COPD type (HCC) - stable / no changes HTN, goal below 140/90 - stable / no changes Hyperlipidemia with target LDL less than 70 - stable / no changes Wrap-Up Follow-up: Return in about 6 months (around 02/15/2025). | Check-out note: As scheduled with Dr. Barros or sooner as needed Cosigned by Gera Soler MD at 08/16/2024 12:36 PM EDT documented in this encounter Nursing Notes * Tabatha Morton LPN - 08/16/2024 10:16 AM EDT 6 month recheck documented in this encounter Miscellaneous Notes * Assessment & Plan Note - Janeen Pederson CRNP - 08/16/2024 12:28 PM EDT Associated Problem(s): Chronic obstructive pulmonary disease (HCC) - stable / no changes * Assessment & Plan Note - Janeen Pederson CRNP - 08/16/2024 12:28 PM EDT Associated Problem(s): DM type 2, goal HbA1c < 8% ([facility]CC) - A1C at goal / will plan to repeat in 6 months - continue monitoring BSG at home - monitor diet * Assessment & Plan Note - Janeen Pederson CRNP - 08/16/2024 12:28 PM EDT Associated Problem(s): HTN, goal below 140/90 - stable / no changes * Assessment & Plan Note - Jnaeen Pederson CRNP - 08/16/2024 12:28 PM EDT Associated Problem(s): Hyperlipidemia with target LDL less than 70 - stable / no changes documented in this encounter Plan of Treatment Upcoming Encounters Date Type Department Care Team (Gracie Contact Info) Description 08/30/2024 10:20 AM EDT Office Visit Podiatry [facility] [address] [place] [address] Melinda Stallworth, DPM [address] [place] [id number] 02/15/2025 9:30 AM EDT Office Visit Family Medicine [address] [place] [phone] Sakshi Barros[address] [place] [address] 08/30/2025 11:00 AM EDT Office Visit [address] [place] [phone] Charline Hurst PA-C [address] [place] [address] [place] [phone] Scheduled Procedures Name Priority Associated Diagnoses Date/Ti me ESOPHAGOGASTRODUODENOSCOPY ( EGD), FLEXIBLE, TRANSORAL, DIAGNOSTIC Recall Alberto's esophagus with esophagitis COLONOSCOPY FLEXIBLE PROXIMAL DIAGNOSTIC Recall Screening for colon cancer Health Maintenance Due Date Last Done Comments Alpha-1 Antitrypsin 01/16/1963 Adult Wellness Visit 11/18/2019 11/17/2018 B-12 07/08/2024 07/09/2023, 05/29, 01/31/2021, Additional history exists COVID-19 Vaccine ( season) 2024 02/13/2024, 02/24/2023, 01/08/2022, Additional history exists Diabetic Eye Exam 11/02/2024 11/03/2023, , 09/24/2022, Additional history exists HbA1c 01/22/2025 07/22/2024, 01/26, 06/17/2023, Additional history exists Diabetic Foot Exam 02/12/2025 02/13/2024, 0 12/25/2022, 03/06/2022, Additional history exists Albumin/Creatinine Ratio 03/11/2025 024, 02/11/2024, 06/12/2022, Additional history exists O2 ASSESSMENT COMPLETED IN PAST YEAR FOR COPD 04/01/2025 04/01/2024 GFR 07/22/2025 07/22/2024, 05/29, 02/13/2024, Additional history exists Depression Monitoring 08/16/2025 08/16/2024 DTap/Tdap Vaccines (2 - Td or Tdap) [...] this encounter Medical Devices Implanted Type Area Sap Functional Analyst Device Identifier Shelf Expiration Date Model / Serial / Lot Mesh 3dmax 3.1x5.3in t Med - [id number] Implanted:Qty: 1 on 05/02/2023 by Jean Claude Givens MD at OR [facility] Right: Groin CR BARD : DAVOL 03/25/2027 [id number] / / [id number] documented as of this encounter Visit Diagnoses Diagnosis Advanced care planning/counseling discussion- Primary Other specified counseling Atherosclerosis of [place] coronary artery of [place] heart without angina pectoris Essential (primary) hypertension [...] exposure to other air contaminants Atherosclerosis of [place] coronary artery of [place] heart without angina pectoris- Primary Essential (primary) hypertension Unspecified essential hypertension Asthma-COPD overlap syndrome (HCC) Diabetic polyneuropathy associated with type 2 diabetes mellitus (HCC) Hyperlipidemia with target LDL less than 70 Other and unspecified hyperlipidemia Alberto's esophagus without dysplasia Alberto's esophagus Chronic right shoulder pain Pain in joint, shoulder region DM type 2, goal HbA1c < 8% ([facility])- Primary Chronic obstructive pulmonary disease, unspecified COPD type (HCC) HTN, goal below 140/90 Unspecified essential hypertension Hyperlipidemia with target LDL less than 70 Other and unspecified hyperlipidemia documented in this encounter Advance Directives * [...] Discussed due to patient's condition Care Teams Conventional Underwriter Relationship Specialty Start Date End Date Sakshi Barros DO [address] [place] [address] [place] [id number] PCP - General Internal Medicine 02/05/16 documented as of this encounter
--- OUTSIDE RECORDS SUMMARY | 2024-08-24 06:30 | External Medical Summary | Summary of Care ---
Author Name Unknown Organization [facility] Address [address] [facility] [address] Phone [phone] Care Team Providers Care Solar Maintenance Technician Name Role Phone Sakshi Barros DO Primary Care Provider Reason for Visit * Reason Comments Follow Up R foot Diabetic Foot Care And R foot follow up Encounter Details Date Type Department Care Team (Late st Contact Info) Description 08/04/2024 9:00 AM EDT Office Visit Podiatry [facility] [address] [place] [address] Melinda Stallworth, DPM [address] [facility] [address] Diabetic ulcer of right midfoot associated with type 2 diabetes mellitus, limited to breakdown of skin (HCC)*; Thickened nails; Type 2 diabetes mellitus with diabetic neuropathy, without long-term current use of insulin (HCC) Allergies No known active allergiesdocumented as of this encounter (statuses as of 08/04/2024) Medications M-VIT PO TABS one a day [...] by mouth. Activ e OneTouch Delica Plus [id number] s:Type 2 diabetes mellitus with diabetic neuropathy, without long-term current use of insulin ([facility]) Test up to four times daily 400 [...] DM type 2, goal HbA1c < 8% ([facility]) USE ONCE DAILY 100 Each 3 5 4:21 PM EST 10/20/19 24 025 Active Latanoprost 0.005 % Ophthalmic Solution (Xalatan) INSTILL ONE DROP INTO BOTH EYES EVERY NIGHT 10 mL 3 5 8:31 AM EST 12/08/19 24 Active PreviDent 5000 Enamel Protect 1.1-5 % Dental Gel [place] once a day preferably before bedtime do [...] 2 diabetes mellitus with diabetic neuropathy, unspecified ([facility]) TAKE 1 TABLET BY MOUTH TWICE A DAY WITH BREAKFAST AND DINNER 180 Tablet 1 08/01/19 25 Active documented as of this encounter (statuses as of 08/04/2024) Active Problems Problem Noted Date Diagnosed Date [...] Statin History of cholecystectomy 10/15/2021 Atherosclerosis of [place] co ronary artery without angina pectoris 05/29/2021 [...] as of this encounter (statuses as of 08/04/2024) Resolved Problems Problem Noted Date Diagnosed Date Resolved Date Absolute anemia 02/21/2021 06/12/2022 Abnormal thyroid blood test 03/30/2020 11/21/2020 Overview (03/30/2020): From Dr. Nuñez. Will recheck through [facility] next time he is seen. Major depressive [...] range 120 to 150. Last hemoglobin A1c 7.62313 continue metformin, Lantus Rectal bleeding 02/05/2016 01/10/2017 Overview (02/05/2016): Had EGD/colonoscopy Acute blood loss anemia 02/05/201612/27 HTN, goal below 140/90 02/05/201601/10 Neuropathy 02/05/2016 01/10/2017 AK (actinic keratosis) 01/12/201401/10 Overview (05/18/2014): Efudex (Salina Vazquez)- 04/2014 documented as of this encounter (statuses as of 08/04/2024) Immunizations Name Administration Dates Next Due COVID-19 [...] of this encounter Progress Notes * Melinda Stallworth, MABEL - 08/04/2024 9:25 AM EDT Podiatry Established Note [facility] Name: Vahe Resendez : 1945 Date: 08/04/2024 REASON FOR VISIT: foot care, recheck right foot wound SUBJECTIVE: This patient is a 79 year old male who presents today for follow up of a persistent wound to the right foot and nail care. He has neuropathy and takes gabapentin. Today, he reports not applying a dressing to the right foot wound but he has noticed blood on his sock. He notes this foot appears more swollen than the left but he is not sure if this is baseline and if this foot generally is a little bigger than the left side. He also mentions being scheduled for spine surgery later thismonth. Medical necessity reason: type 2 DM with polyneuropathy Last primary care appointment: 02/13/2024 Sakshi Barros, he was also seen on 10/13 for hospital follow up Past Medical History: Diagnosis Date Acute blood loss anemia AK (actinic keratosis) 01/12/2014 Efudex (Salina Vazquez)- 04/2014 Anxiety 02/05/2016 Basal cell carcinoma of nose 07/09/2016 BPH without obstruction/lower urinary tract symptoms 02/05/2016 Heartburn 02/05/2016 Hypertension Mixed hyperlipidemia 02/05/2016 Rectal bleeding 02/05/2016 Had EGD/colonoscopy Restless legs syndrome 02/05/2016 Type 2 diabetes mellitus with hemoglobin A1c goal of less than 7.0% ([facility]) 02/05/2016 ALLERGIES: Review of patient's allergies indicates: No Known Allergies REVIEW OF SYSTEMS: CONSTITUTIONAL: No fever FOCUSED PODIATRIC EXAM: Vascular: Pedal pulses palpable including dorsalis pedis and posterior tibial artery at 2/4 bilaterally. Capillary refill time is within normal limits to all toes. Non pitting edema noted to the lower legs with the right dorsal foot appearing more swollen than the left. No warmth. Neurologic: Sensation (light touch) intact to the bilateral lower extremities. No hypersensitivity. No weakness. Musculoskeletal: No pain with palpation of the bilateral forefoot. Dermatological: Skin is thin. Hyperkeratotic skin to the right plantar foot sub met 5 with open wound in the center. Toenails are thickened (>3mm) and elongated 1-5 [...] Component Value Date/Time HEMOGLOBIN A1C - [facility] 7.5 (H) 02/11/2024 09:54 AM HEMOGLOBIN A1C - [facility] 7.7 (H) 06/17/2023 12:09 PM HEMOGLOBIN A1C - [facility] 7.7 (H) 12/25/2022 12:15 PM HEMOGLOBIN A1C - [facility] 7.7 (H) 08/11/2018 12:02 PM HEMOGLOBIN A1C - [facility] 6.3 (H) 01/07/2018 01:52 PM HEMOGLOBIN A1C - [facility] 5.8 02/05/2016 08:55 AM ASSESSMENT: 1. Diabetic ulcer of right midfoot associated with type 2 diabetes mellitus, limited to breakdown of skin ([facility]) (Primary) 2. Thickened nails TA T1 T2 T3 T4 T5 T6 T7 T8 T9 3. Type 2 diabetes mellitus with diabetic neuropathy, without long-term current use of insulin ([facility]) PLAN: Procedure: After mild cleansing and drying of feet, toenails 1-5 bilaterally were trimmed to appropriate length with sterile nail cutters. This was performed without incident. The patient tolerated well. The right foot wound persists. I recommended debridement. Non OR time Out: Time out was initiated under direction and supervision of provider Melinda Stallworth. Correct patient identity - Yes Correct side and site - Yes Procedure matches verbalized consent -Yes Correct patient position - Yes Availability of correct implants and any special equipment or special requirements - Yes Time out occurred prior to procedure start - Yes Prophylactic antibiotic timing confirmed - N/A Witness present & agrees with the time out process. Wound location: right plantar foot Character of Wound/Ulcer Pre Debridement: no change Indication for Debridement: Abnormal Wound Edge, Abnormal Wound Base Instrument Used: Scalpel Tissue and/or Material Removed: Non-Viable, Callus, Necrotic Bleeding: Minimal Bleeding Controlled with: Pressure Specimen Taken: none Type of Debridement: Excisional (Open Wound): Skin, Non-viable, necrotic Level of Debridement: Skin Epidermis and Skin Dermis, subcutaneous Anesthesia: None Bioengineered Tissue/Dermal Substrate Applied: No Character of Wound/Ulcer Post Debridement: Improved Total Measurement: Total wound surface are 0.72 cm Sq. Total area debrided was 0.72 cm Sq. Procedure Tolerated: Yes Wound measured 0.9cm x 0.8cm x 0.2cm depth. The base had some necrotic tissue after overlying callus was removed, this was excised. There is no drainage, redness, or pain on exam. I applied bacitracin and DSD. He is to continue this once daily. I recommended a 2-3 week follow up but he declined. I asked he let his surgeon know if this does not improve. He is to contact me immediately if he feels this area is not improving or worsening. He asked me to look at his shoes. He is using Merrels with Aetrex inserts which seem appropriate. Follow up: He declined suggested 2-3 weeks, he may return in 4 weeks + or sooner if needed Melinda Stallworth DPM documented in this encounter Nursing Notes * Nadja Segundo LPN - 08/04/2024 8:50 AM EDT Pt presents for follow up R foot ulcer, debrided 06/21/2024 and diabetic foot care. States has pain in R foot. BSG 145 this morning. documented in this encounter Plan of Treatment Upcoming Encounters Date Type Department Care Team (Late st Contact Info) Description 08/09/2024 9:40 AM EDT Office Visit [address] [place] [phone] Steffanie Brizuela PA-C [address] [place] [address] [place] [id number] 08/16/2024 10:20 AM EDT Office Visit [address] [place] [phone] Janeen Pederson CRNP [address] [place] [address] [place] [id number] 08/30/2024 10:20 AM EDT Office Visit Podiatry [facility] [address] [place] [phone] Melinda Stallworth, MABEL [address] [facility] [place] [address] 02/15/2025 9:30 AM EDT Office Visit [address] [place] [phone] Sakshi Barros DO [address] [place] [address] [place] [id number] 08/30/2025 11:00 AM EDT Office Visit [address] [place] [phone] Charline Hurst PA-C [address] [place] [address] [place] [id number] Scheduled Procedures Name Priority Associated Diagnoses Date/Ti [...] 12/25/2022, 03/06/2022, Additional history exists Albumin/Creatinine Ratio 03/11/202503/11/2 024, 02/11/2024, 06/12/2022, Additional history exists O2 [...] this encounter Medical Devices Implanted Type Area Cardio Tech Device Identifier Shelf Expiration Date Model / Serial / Lot Mesh 3dmax 3.1x5.3in t Med - [id number] Implanted:Qty: 1 on 05/02/2023 by Jean Claude Givens MD at OR [facility] Right: Groin CR BARD : DAVOL 03/25/2027 [id number] / / [id number] documented as of this encounter Visit Diagnoses Diagnosis Advanced care planning/counseling discussion- Primary Other specified counseling Atherosclerosis of [place] coronary artery of [place] heart without angina pectoris Essential (primary) hypertension [...] exposure to other air contaminants Atherosclerosis of [place] coronary artery of [place] heart without angina pectoris- Primary Essential (primary) hypertension Unspecified essential hypertension Asthma-COPD overlap syndrome (HCC) Diabetic polyneuropathy associated with type 2 diabetes mellitus (HCC) Hyperlipidemia with target LDL less than 70 Other and unspecified hyperlipidemia Alberto's esophagus without dysplasia Alberto's esophagus Chronic right shoulder pain Pain in joint, shoulder region Diabetic ulcer of right midfoot associated with type 2 diabetes mellitus, limited to breakdown of skin (HCC)- Primary Thickened nails Other specified disease of nail Type 2 diabetes mellitus with diabetic neuropathy, without long-term current use of insulin (HCC) documented in this encounter Advance Directives * [...] Discussed due to patient's condition Care Teams Solar Maintenance Technician Relationship Specialty Start Date End Date Sakshi Barros DO [address] [place] [address] [place] [phone] PCP - General Internal Medicine 02/05/16 documented as of this encounter
--- OUTSIDE RECORDS SUMMARY | 2024-08-24 06:31 | External Medical Summary | Summary of Care ---
Author Name Unknown Organization [facility] Address [address] [facility] [place] [address] Phone [phone] Care Team Providers Care Reflexologist Name Role Phone Sakshi Barros Primary Care Provider + [phone] Encounter Details Date Type Department Care Team (Late st Contact Info) Description 07/26/2024 Orders Only Family Medicine [address] [phone] Steffanie Brizuela PA-C [address] [place] [address] [place] [address] Allergies No known active allergiesdocumented as of this encounter (statuses as of 07/26/2024) Medications M-VIT PO TABS one a day [...] by mouth. Activ e OneTouch Delica Plus [id number] s:Type 2 diabetes mellitus with diabetic neuropathy, without long-term current use of insulin (HCC) Test up to four times daily 400 Each 1 3 1:21 PM EDT 12/27/19 23 Active Aspirin 81 MG Oral Tablet Delayed Release (Aspirin 81) Take 1 Tablet by mouth in the morning. Active Metamucil Fiber 51.7 % Oral Packet (Psyllium) Take by mouth. Acti ve metFORMIN HCl 1000 MG Oral Tablet (Glucophage)Indicat ions:Type 2 diabetes mellitus with diabetic neuropathy, unspecified ([facility]) TAKE 1 TABLET BY MOUTH TWICE A DAY WITH BREAKFAST AND DINNER 180 Tablet 3 07/28/19 24 Active Fluticasone-[place] rol 250-50 MCG/ACT Inhalation Aerosol Powder Breath Activated (Advair Diskus)Indications: Asthma-COPD overlap syndrome ([facility]) INHALE ONE PUFF BY MOUTH TWICE A [...] 2, goal HbA1c < 8% ([facility]) USE ONCE DAILY 100 Each 3 5 4:21 PM EST 10/20/19 24 025 Active Latanoprost 0.005 % Ophthalmic Solution (Xalatan) INSTILL ONE DROP INTO BOTH EYES EVERY NIGHT 10 mL 3 5 8:31 AM EST 12/08/19 24 Active PreviDent 5000 Enamel Protect 1.1-5 % Dental Gel [place] once a day preferably before bedtime do [...] 2, goal HbA1c < 8% ([facility]) INJECT 15 UNITS UNDER THE SKIN [...] 12:49 PM EDT 07/21/19 25 026 Active documented as of this encounter (statuses as of 07/26/2024) Active Problems Problem Noted Date Diagnosed Date [...] Statin History of cholecystectomy 10/15/2021 Atherosclerosis of [place] co ronary artery without angina pectoris 05/29/2021 Assessment & Plan (08/05/2022 1:08 PM EDT): Continue statin, metoprolol, lisinopril Not on aspirin due to GI bleeding Assessment & Plan (06/05/2022 1:03 PM EST): Continue statin, metoprolol, lisinopril Not on aspirin due to GI bleeding Occupational exposure to other air contaminants 11/21/2020 Hypomagnesemia 11/10/2020 Recurrent major depressive disorder, in [facility] n 05/22/2020 History of [place] (myocardial infarction) [...] as of this encounter (statuses as of 07/26/2024) Resolved Problems Problem Noted Date Diagnosed Date Resolved Date Absolute anemia 02/21/2021 06/12/2022 Abnormal thyroid blood test 03/30/2020 11/21/2020 Overview (03/30/2020): From Dr. Nuñez. Will recheck through [employer] next time he is seen. Major depressive [...] range 120 to 150. Last hemoglobin A1c 7.07546 continue metformin, Lantus Rectal bleeding 02/05/2016 01/10/2017 Overview (02/05/2016): Had EGD/colonoscopy Acute blood loss anemia 02/05/201612/27 HTN, goal below 140/90 02/05/201601/10 Neuropathy 02/05/2016 01/10/2017 AK (actinic keratosis) 01/12/201401/10 Overview (05/18/2014): Efudex (Cheli maria antoniaElizabethCiro)- 04/2014 documented as of this encounter (statuses as of 07/26/2024) Immunizations Name Administration Dates Next Due COVID-19 [...] 08/04/2024 9:00 AM EDT Office Visit Podiatry [facility] [address] [place] [phone] Melinda Stallworth, DPM [address] [facility] [place] [address] 08/09/2024 9:40 AM EDT Office Visit [address] [phone] Steffanie Brizuela PA-C [address] [place] [address] [place] [address] 08/16/2024 10:20 AM EDT Office Visit [address] [phone] Janeen Pederson CRNP [address] [place] [address] [place] [address] 02/15/2025 9:30 AM EDT Office Visit [address] [place] [phone] Sakshi Barros DO [address] [place] [address] [place] [address] 08/30/2025 11:00 AM EDT Office Visit [address] [place] [phone] Charline Hurst PA-C [address] [place] [address] [place] [phone] Scheduled Procedures Name Priority Associated Diagnoses Date/Ti me ESOPHAGOGASTRODUODENOSCOPY ( EGD), FLEXIBLE, TRANSORAL, DIAGNOSTIC Recall Alberto's esophagus with esophagitis COLONOSCOPY FLEXIBLE PROXIMAL DIAGNOSTIC Recall Screening for colon cancer Health Maintenance Due Date Last Done Comments Alpha-1 Antitrypsin 01/16/1964 Adult Wellness Visit 11/18/2019 11/17/2018 Depression Monitoring 02/21/2022 02/21/2021 B-12 07/08/2024 07/09/2023, 05/29, 01/31/2021, Additional history [...] this encounter Medical Devices Implanted Type Area Bunch Trimmer Mold Device Identifier Shelf Expiration Date Model / Serial / Lot Mesh 3dmax 3.1x5.3in t Med - [id number] Implanted:Qty: 1 on 05/02/2023 by Jean Claude Givens MD at OR [facility] [address] Right: Groin CR BARD : DAVOL 03/25/2027 [id number] / / [id number] documented as of this encounter Procedures Procedure Name Priority Date/Time Associated Diagnosis Comments CHEMISTRY-OUTSIDE Routine 07/22/2024 documented in this encounter Results * (ABNORMAL) CHEMISTRY-OUTSIDE (07/22/2024) Not all results display below - see scan for full detail OUTSIDE LAB (SEE SCANNED REPORT) Comment:SCAN INC: PRE ADM LA BS: PT, INR, PTT,BMP,HA1C,CBCD CREATININE 1.31 0.6 - 1.4 MG/DL OUTSIDE LAB (SEE SCANNED REPORT) EGFR 55.72 OUTSIDE LA B (SEE SCANNED REPORT) POTASSIUM 4.4 3.5 - 5.1 MMOL/L OUTSIDE LAB (SEE SCANNED REPORT) GLUCOSE 171(A) 70 - 99 MG/DL OUTSIDE LAB (SEE SCANNED REPORT) HOURS FASTING OUTSID E LAB (SEE SCANNED REPORT) TRIGLYCERIDES-OUT SIDE LAB OUTSIDE LAB (SEE SCANNED REPORT) CHOLESTEROL-OUTSI DE LAB OUTSIDE LAB (SEE SCANNED REPORT) HDL-OUTSIDE LAB OUTS [facility] (SEE SCANNED REPORT) CHOL/HDL RATIO-OUTSIDE LAB OUTSIDE LA B (SEE SCANNED REPORT) LDL (CALCULATED)-OUTS [facility] OUTSIDE LAB (SEE SCANNED REPORT) LDL (DIRECT MEASURE)-OUTSIDE LAB OUTSIDE LAB (SEE SCANNED REPORT) HEMOGLOBIN, U5N-MYTMOWP LAB 8.0(A) 4.5 - 5.6 % OUTSIDE LAB (SEE SCANNED REPORT) PHOSPHORUS-OUTSID E LAB OUTSIDE LAB (SEE SCANNED REPORT) PTH-OUTSIDE LAB OUTS [facility] (SEE SCANNED REPORT) MICROALBUMIN RATIO-OUTSIDE LAB OUTSIDE LA B (SEE SCANNED REPORT) PROTEIN, UA-OUTSIDE LAB OUTSIDE LAB (SEE SCANNED REPORT) HGB 14.1 14.0 - 18.0 G/DL OUTSIDE LAB (SEE SCANNED REPORT) 07/22/2024 us History Per Patient LABORATORY Final Result OUTSIDE LAB (SEE SCANNED REPORT) documented in this encounter Advance Directives * [...] Discussed due to patient's condition Care Teams Reflexologist Relationship Specialty Start Date End Date Sakshi Barros DO [address] [place] [address] [place] [phone] PCP - General Internal Medicine 02/05/16 documented as of this encounter
--- OUTSIDE RECORDS SUMMARY | 2024-08-24 06:31 | External Medical Summary | Summary of Care ---
Author Name Unknown Organization [facility] Address [address] [facility] [place] [address] Phone [phone] Care Team Providers Care Make Up Man Name Role Phone Sakshi Barros Primary Care Provider [phone] Encounter Details Date Type Department Care Team (Late st Contact Info) Description 07/22/2024 Result Scan Unspecified Department <No scans attached> Allergies No known active allergiesdocumented as of [...] by mouth. Activ e OneTouch Delica Plus [id number] s:Type 2 diabetes mellitus with diabetic neuropathy, [...] taking differently: HS, Reported on 06/21/2024 OneTouch VerUS PREVENTIVE MEDICINE In Vitro Strip (Glucose Blood) USE UP TO THREE TIMES A DAY 300 Strip 3 10/10/19 24 025 Active Unifine Pentips 32G X 4 MM (Insulin Pen Needle)Indications: DM type 2, goal HbA1c < 8% ([facility]) USE ONCE DAILY 100 Each 3 5 4:21 PM EST 10/20/19 24 025 Active Latanoprost 0.005 % Ophthalmic Solution (Xalatan) INSTILL ONE DROP INTO BOTH EYES EVERY NIGHT 10 mL 3 5 8:31 AM EST 12/08/19 24 Active PreviDent 5000 Enamel Protect 1.1-5 % Dental Gel [place] once a day preferably before bedtime do [...] ions:DM type 2, goal HbA1c < 8% ([facility] [...] Statin History of cholecystectomy 10/15/2021 Atherosclerosis of [place] co ronary artery without angina pectoris 05/29/2021 [...] (03/30/2020): From Dr. Nuñez. Will recheck through [email or web address] next time he is seen. Major depressive [...] range 120 to 150. Last hemoglobin A1c 7.33726 continue metformin, Lantus Rectal bleeding 02/05/2016 01/10/2017 [...] 08/04/2024 9:00 AM EDT Office Visit Podiatry [facility] [address] [place] [phone] Melinda Stallworth, DPM [address] [place] [address] 08/09/2024 9:40 AM EDT Office Visit Family [address] [phone] Steffanie Brizuela PA-C [address] [place] [address] [place] [address] 08/16/2024 10:20 AM EDT Office Visit [address] [place] [phone] Janeen Pederson CRNP [address] [place] [address] [place] [address] 02/15/2025 9:30 AM EDT Office Visit [address] [phone] Sakshi Barros DO [address] [place] [address] [place] [address] 08/30/2025 11:00 AM EDT Office Visit [address] [place] [phone] Charline Hurst PA-C [address] [place] [address] [place] [id number] Scheduled Procedures Name Priority Associated Diagnoses Date/Ti [...] this encounter Medical Devices Implanted Type Area Credentialing Manager Device Identifier Shelf Expiration Date Model / Serial / Lot Mesh 3dmax 3.1x5.3in t Med - [id number] Implanted:Qty: 1 on 05/02/2023 by Jean Claude Givens MD at OR [facility] Right: Groin CR BARD : DAVOL 03/25/2027 [id number] / / [id number] documented as of this encounter Procedures Procedure Name Priority Date/Time Associated Diagnosis Comments RADIOLOGY SCANNED RESULT 07/22/2024 documented in this encounter Results * RADIOLOGY SCANNED RESULT (07/22/2024) 07/22/2024 us No Physician Data Unknown DIAGNOSTIC RADIOLOGY S ERVICES Final Result documented in this encounter Advance Directives * [...] Discussed due to patient's condition Care Teams Make Up Man Relationship Specialty Start Date End Date Sakshi Barros DO [address] [place] [address] [place] [phone] PCP - General Internal Medicine 02/05/16 documented as of this encounter
--- OUTSIDE RECORDS SUMMARY | 2024-08-24 06:31 | External Medical Summary | Summary of Care ---
Author Name Unknown Organization [facility] Address [address] [facility] [place] [address] Phone [phone] Care Team Providers Care End User Consultant Name Role Phone Cindy Sinclair Primary Care Provider + [phone] Reason for Visit * Reason Comments eRx-Medication Refill Encounter Details Date Type Department Care Team (Late st Contact Info) Description 07/30/2024 Refill Family Medicine [address] [phone] Andrew Greene MD [address] [place] [address] [place] [phone] Type 2 diabetes mellitus with diabetic neuropathy, unspecified (HCC) Allergies No known active allergiesdocumented as of this encounter (statuses as of 07/31/2024) Medications M-VIT PO TABS one a day [...] by mouth. Activ e OneTouch Delica Plus [id number] ns:Type 2 diabetes mellitus with diabetic neuropathy, without long-term current use of insulin (HCC) Test up to four times daily 400 Each 1 01/01/20 23 1:21 PM EDT 023 Active Aspirin 81 MG Oral Tablet Delayed Release (Aspirin 81) Take 1 Tablet by mouth in the morning. Active Metamucil Fiber 51.7 % Oral Packet (Psyllium) Take by mouth. Acti ve Fluticasone-Salmet bari 250-50 MCG/ACT Inhalation Aerosol Powder Breath Activated (Advair Diskus)Indications :Asthma-COPD overlap syndrome (HCC) INHALE ONE PUFF BY MOUTH TWICE A DAY-MORNING AND BEFORE BEDTIME. RINSE MOUTH WELL AFTER EACH USE 180 Each 1 024 2024 Active Pantoprazole Sodium 40 MG Oral Tablet Delayed Release (Protonix)Indicati ons:Alberto's esophagus without dysplasia TAKE ONE TABLET BY MOUTH EVERY MORNING AND TAKE ONE TABLET BY MOUTH AT BEDTIME 200 Tablet 3 07/09/19 9:54 AM EDT 024 2024 Active Rosuvastatin Calcium 40 MG Oral Tablet (Crestor)Indicatio ns:Hyperlipidemia with target LDL less than 70 TAKE ONE TABLET BY MOUTH EVERY DAY 90 Tablet 3 07/06/19 1:16 PM EDT 024 2024 Active Additional Information Patient taking differently: HS, Reported on 06/21/2024 OneTouch Verio In Vitro Strip (Glucose Blood) USE UP TO THREE TIMES A DAY 300 Strip 3 024 2024 Active Unifine Pentips 32G X 4 MM (Insulin Pen Needle)Indications :DM type 2, goal HbA1c < 8% ([facility]) USE ONCE DAILY 100 Each 3 05/03/19 25 4:21 PM EST 024 2024 Active Latanoprost 0.005 % Ophthalmic Solution (Xalatan) INSTILL ONE DROP INTO BOTH EYES EVERY NIGHT 10 mL 3 06/11/19 25 8:31 AM EST Active PreviDent 5000 Enamel Protect 1.1-5 % Dental Gel [place] once a day preferably before bedtime do not rinse out 100 mL 3 01/21/20 24 3:20 PM EDT Active Ibuprofen 200 MG Oral Tablet (Motrin) Take 4 Tablets by mouth every morning. Active Metoprolol Tartrate 25 MG Oral Tablet (Lopressor) Take 1 Tablet by mouth every morning. Take 1/2 tablet every morning Active Lantus SoloStar 100 UNIT/ML Subcutaneous Solution Pen-injectorIndica tions:DM type 2, goal HbA1c < 8% (HCC) INJECT 15 UNITS UNDER THE SKIN DAILY 15 mL 2 07/13/19 3:28 PM EDT 024 2024 Active Sertraline HCl 50 MG Oral Tablet (Zoloft)Indication s:Anxiety TAKE 1 TABLET BY MOUTH EVERYDAY AT BEDTIME 90 Tablet 2 025 Active Gabapentin 300 MG Oral Capsule (Neurontin) TAKE TWO CAPSULES BY MOUTH TWICE A DAY -- IN THE MORNING AND BEFORE BEDTIME 400 Capsule 1 05/25/19 3:23 PM EST 025 2025 Active Tamsulosin HCl 0.4 MG Oral Capsule (Flomax)Indication s:BPH without obstruction/lower urinary tract symptoms,Ureteral stone Take 2 Capsules by mouth in the morning. 200 Capsule 1 06/14/19 6:50 PM EST 025 Active Pramipexole Dihydrochloride 0.25 MG Oral Tablet (Mirapex)Indicatio ns:Restless legs syndrome TAKE ONE TABLET BY MOUTH AT BEDTIME 100 Tablet 3 07/24/19 12:49 PM EDT 025 2025 Active metFORMIN HCl 1000 MG Oral Tablet (Glucophage)Indica tions:Type 2 diabetes mellitus with diabetic neuropathy, unspecified (HCC) TAKE 1 TABLET BY MOUTH TWICE A DAY WITH BREAKFAST AND DINNER 180 Tablet 1 025 Active metFORMIN HCl 1000 MG Oral Tablet (Glucophage)Indica tions:Type 2 diabetes mellitus with diabetic neuropathy, unspecified (HCC) TAKE 1 TABLET BY MOUTH TWICE A DAY WITH BREAKFAST AND DINNER 180 Tablet 3 024 2024 Discontinued documented as of this encounter (statuses as of 07/31/2024) Active Problems Problem Noted Date Diagnosed Date [...] Statin History of cholecystectomy 10/15/2021 Atherosclerosis of [place] co ronary artery without angina pectoris 05/29/2021 Assessment & Plan (08/05/2022 1:08 PM EDT): Continue statin, metoprolol, lisinopril Not on aspirin due to GI bleeding Assessment & Plan (06/05/2022 1:03 PM EST): Continue statin, metoprolol, lisinopril Not on aspirin due to GI bleeding Occupational exposure to other air contaminants 11/21/2020 Hypomagnesemia 11/10/2020 Recurrent major depressive disorder, in remissio n 05/22/2020 History of CO (myocardial infarction) 05/22/2020 Primary open-angle glaucoma, left [...] as of this encounter (statuses as of 07/31/2024) Resolved Problems Problem Noted Date Diagnosed Date Resolved Date Absolute anemia 02/21/2021 06/12/2022 Abnormal thyroid blood test 03/30/2020 11/21/2020 Overview (03/30/2020): From Dr. Nuñez. Will recheck through [employer] next time he is seen. Major depressive [...] range 120 to 150. Last hemoglobin A1c [id number] continue metformin, Lantus Rectal bleeding 02/05/2016 01/10/2017 Overview (02/05/2016): Had EGD/colonoscopy Acute blood loss anemia 02/05/201612/27 HTN, goal below 140/90 02/05/201601/10 Neuropathy 02/05/2016 01/10/2017 AK (actinic keratosis) 01/12/201401/10 Overview (05/18/2014): Efudex (Salina Vazquez)- 04/2014 documented as of this encounter (statuses as of 07/31/2024) Immunizations Name Administration Dates Next Due COVID-19 [...] encounter Miscellaneous Notes * Telephone Encounter - Shadi Tomlinson [facility] - 07/31/2024 11:20 AM EDT Signed Prescriptions: Disp Refills metFORMIN HCl 1000 MG Oral Tablet (Glucoph*180 Ta*1 Sig: TAKE 1 TABLET BY MOUTH TWICE A DAY WITH BREAKFAST AND DINNERAuthorizing Provider: CINDY SINCLAIROrderingUser: SHADI TOMLINSON documented in this encounter Plan of Treatment Upcoming Encounters Date Type Department Care Team (Late st Contact Info) Description 08/04/2024 9:00 AM EDT Office Visit Podiatry [facility] [address] [place] [phone] Melinda Stallworth DPM [address] [place] [address] [place] [id number] 08/09/2024 9:40 AM EDT Office Visit Family Medicine [address] [phone] KoptSteffanie jimenez PA-C [address] [place] [address] [place] [id number] 08/16/2024 10:20 AM EDT Office Visit [address] [place] [phone] Janeen Pederson CRNP [address] [place] [address] [place] [id number] 02/15/2025 9:30 AM EDT Office Visit [address] [place] [phone] Cindy Sinclair DO [address] [place] [address] [place] [id number] 08/30/2025 11:00 AM EDT Office Visit [address] [place] [phone] Charline Hurst PA-C [address] [place] [address] [place] [id number] Scheduled Procedures Name Priority Associated Diagnoses Date/Ti [...] this encounter Medical Devices Implanted Type Area Jig Hand Device Identifier Shelf Expiration Date Model / Serial / Lot Mesh 3dmax 3.1x5.3in [facility] Med - [id number] Implanted:Qty: 1 on 05/02/2023 by Jean Claude Givens MD at OR [facility] Right: Groin CR BARD : DAVOL 03/25/2027 [id number] / / [id number] documented as of this encounter Visit Diagnoses Diagnosis Advanced care planning/counseling discussion- Primary Other specified counseling Atherosclerosis of [place] coronary artery of [place] heart without angina pectoris Essential (primary) hypertension [...] exposure to other air contaminants Atherosclerosis of [place] coronary artery of [place] heart without angina pectoris- Primary Essential (primary) hypertension Unspecified essential hypertension Asthma-COPD overlap syndrome (HCC) Diabetic polyneuropathy associated with type 2 diabetes mellitus (HCC) Hyperlipidemia with target LDL less than 70 Other and unspecified hyperlipidemia Alberto's esophagus without dysplasia Alberto's esophagus Chronic right shoulder pain Pain in joint, shoulder region Type 2 diabetes mellitus with diabetic neuropathy, unspecified (HCC) documented in this encounter Advance Directives [...] Discussed due to patient's condition Care Teams End User Consultant Relationship Specialty Start Date End Date Cindy Sinclair DO [address] [place] [address] [place] [phone] PCP - General Internal Medicine 02/05/16 documented as of this encounter
[2024-08-24] MEDS: LR 60ML/HR IV SCH (06:54)
[2024-08-24] MEDS: CeleBREX 200 MG CAP PO SCH (06:55)
[2024-08-24] MEDS: GABAPENTIN 300 MG CAP PO SCH ×2 (06:55→20:32)
[2024-08-24] MEDS: ACETAMINOPHEN 500 MG TAB PO SCH (06:55)
[2024-08-24] MEDS: LR 15ML/HR IV SCH (06:55)
[2024-08-24] MEDS ORDERED: ATROPINE SULFATE 0.1 MG/ML 10ML SYR IV PRN (07:03)
[2024-08-24] MEDS ORDERED: PROMETHAZINE HCL 6.25 MG in SODIUM CHLORIDE 0.9% 50 ML IV PRN (07:03)
[2024-08-24] MEDS ORDERED: HYDROmorphone INJ 1 MG/ML SYRINGE IV PRN ×2 (07:03→14:20)
[2024-08-24] MEDS ORDERED: GLYCOPYRROLATE 0.2 MG/ML VIAL ONE (07:06)
[2024-08-24] MEDS ORDERED: PROPOFOL IV EMULSION 10 MG/ML 20 ML VIAL IV ONE (07:06)
[2024-08-24] MEDS ORDERED: MIDAZOLAM HCL 1 MG/ML 2ML VIAL ONE (07:06)
[2024-08-24] MEDS ORDERED: ONDANSETRON INJ 2 MG/ML 2 ML VIAL ONE (07:06)
[2024-08-24] MEDS ORDERED: DEXAMETHASONE SOD INJ 4 MG/ML VIAL ONE (07:06)
[2024-08-24] MEDS ORDERED: LIDOCAINE 2% 2 ML VIAL/AMP(20MG/ML) INFIL ONE (07:06)
[2024-08-24] MEDS ORDERED: ROCURONIUM BROMIDE 10 MG/ML 5 ML VIAL IV ONE (07:06)
[2024-08-24] MEDS ORDERED: fentaNYL citrate PF 100 MCG/2 ML VIAL ONE ×2 (07:07→08:24)
[2024-08-24] MEDS ORDERED: SUGAMMADEX SODIUM 200 MG/2 ML VIAL IV ONE (07:08)
[2024-08-24] MEDS ORDERED: PHENYLEPHRINE 100MCG/ML 5ML SYR ONE (07:21)
[2024-08-24] MEDS ORDERED: PHENYLEPHRINE HCL 10 MG/ML VIAL ONE (07:21)
--- NOTE | 2024-08-24 07:41 | History & Physical Bridge Note ---
Date of Service August 24, 2024 History & Physical Bridge Note I have examined the patient, reviewed the History & Physical and in the interval since the performance of the History & Physical I have noted the following changes of clinical significance: no changes noted
--- NOTE | 2024-08-24 07:42 | History & Physical Report ---
Date of Service August 24, 2024 Assessment & Plan (1) Two-level lumbosacral spondylosis with radiculopathy: Plan: L2-S1 decompression and fusion History of Present Illness Chief Complaint: Back and bilateral leg pain Primary Care Provider: Sakshi Barros DO This is a 79-year-old male who presents with persistent back and leg pain after failing course of nonoperative care is here for surgical intervention. Allergies Allergy/AdvReac Type Severity Reaction Status Date / Time No Known Allergies Allergy Verified 08/24/24 06:46 Home Medications Medication Instructions Recorded Confirmed Type gabapentin 300 mg capsule 600 mg PO BID 12/29/17 08/24/24 History metformin 1,000 mg tablet 1,000 mg PO BIDM 12/29/17 08/24/24 History multivit with minerals-iron 18 1 tab PO QAM 12/29/17 08/24/24 History mg-folic ac 400 mcg-vit K 25 mcg tablet (Multi-Day Plus Minerals) pantoprazole 40 mg tablet,delayed 40 mg PO BID 12/29/17 08/24/24 History release (Protonix) sertraline 50 mg tablet 50 mg PO HS 12/29/17 08/24/24 History tamsulosin 0.4 mg capsule 0.8 mg PO QAM 12/29/17 08/24/24 History insulin glargine 100 unit/mL 15 unit subcut HS 07/01/19 08/24/24 History subcutaneous solution (Lantus U-100 Insulin) rosuvastatin 40 mg tablet 40 mg PO HS 01/17/21 08/24/24 History cyanocobalamin (vitamin B-12) 100 100 mcg PO QAM 10/06/21 08/24/24 History mcg tablet (Vitamin B-12) fluticasone 250 mcg-salmeterol 50 1 inh inhalation BID 10/06/21 08/24/24 History mcg/dose blistr powdr for inhalation (Advair Diskus) metoprolol succinate 25 mg 12.5 mg PO QAM 10/06/21 08/24/24 History tablet,extended release 24 hr aspirin 81 mg tablet,delayed 81 mg PO QAM 01/06/23 08/24/24 History release (Adult Aspirin Regimen) acetaminophen 325 mg tablet 650 mg PO Q6H PRN Pain 10/05/23 08/24/24 History (Tylenol) amoxicillin 500 mg capsule 2,000 mg PO DIRECTED PRN 1 HR 10/05/23 08/24/24 History PRIOR TO DENTAL PROCEDURES cholecalciferol (vitamin D3) 50 50 mcg PO BID 10/05/23 08/24/24 History mcg (2,000 unit) capsule (Vitamin D3) dicyclomine 10 mg capsule 10 mg PO TID PRN ABD PAIN 10/05/23 08/24/24 History latanoprost 0.005 % eye drops 1 drp OPB HS 10/05/23 08/24/24 History magnesium oxide 400 mg (241.3 mg 400 mg PO QAM 10/05/23 08/24/24 History magnesium) tablet (MgO) potassium chloride 10 mEq 5 meq PO QAM 10/05/23 08/24/24 History tablet,extended release(part/cryst) pramipexole 0.25 mg tablet 0.25 mg PO HS 10/05/23 08/24/24 History psyllium 1 packet PO QAM 10/05/23 08/24/24 History tramadol 50 mg tablet 50 mg PO Q6H PRN Pain 10/05/23 08/24/24 History Lactobacillus acidophilus 250 500 mmu cells (2 x 250 million 10/08/23 08/24/24 Rx million cell capsule (Probiotic cell) PO DAILY #60 caps Acidophilus) ibuprofen 200 mg tablet 200 mg PO Q6H PRN Pain 07/14/24 08/24/24 History Past Med/Surg History Problem List (Updated 08/24/24 @ 07:41 by Vahe Polo DO) Two-level lumbosacral spondylosis with radiculopathy Encounter for pre-operative examination CAD (coronary artery disease) Remote history of cardiac cath showing mild, nonobstructive disease Chronic obstructive pulmonary disease Diabetes mellitus, type 2 Alberto's esophagus History of cancer with in 1 segment s/p cryoablation HTN (hypertension) Depression with anxiety BPH (benign prostatic hyperplasia) Medical History (Updated 08/24/24 @ 07:41 by Vahe Polo DO) History of blood transfusion during diverticulitis History of diverticulitis last episode 4 years ago Hx of myocardial infarction remote CAD (coronary artery disease) follows with Dr. House Diabetes mellitus, type 2 HTN (hypertension) controlled, stable per pt COPD (chronic obstructive pulmonary disease) no res inh use per pt Depression with anxiety Alberto's esophagus Poor historian BPH (benign prostatic hyperplasia) Hx of Clostridium difficile infection (~2021) Temporomandibular joint disorder occasional locking-last occurred several weeks ago HLD (hyperlipidemia) Restless leg syndrome Diabetic neuropathy feet Surgical History History of tooth extraction History of tonsillectomy Hx of inguinal hernia repair History of total knee replacement bilat History of cholecystectomy Hx of total shoulder replacement bilat Squamous cell carcinoma of nose removed History of cardiac cath Remote history of, mild, nonobstructive CAD noted History of cystoscopy with stent History of carpal tunnel release right History of cataract surgery bilat History of back surgery pt unsure of level History of colonoscopy History of esophagogastroduodenoscopy (EGD) multiple Family History Sister Family history of diabetes mellitus Brother Family history of diabetes mellitus Uncle Family history of diabetes mellitus Father Family history of diabetes mellitus Social History Smoking Status: Former smoker Tobacco Type: Cigarettes Smoking End Date: 1989; Second Hand Exposure: No; Do You Dip or Chew Tobacco: No; Tobacco Cessation Education Requested by Patient: No Hx Alcohol Use: Yes Alcohol type: beer, wine and hard liquor Hx Substance Use: No Preferred Language: Maltese Communication Ability: Effective 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
[2024-08-24] MEDS: ceFAZolin 2000MG 2,000 MG/15 ML SYR IV SCH ×2 (07:52→17:40)
[2024-08-24] MEDS ORDERED: VASOPRESSIN 20 UNIT/ML VIAL ONE (08:33)
[2024-08-24] MEDS: TRANEXAMIC ACID / 0.7% NACL 1000MG/100ML BAG IV ONE (08:41)
[2024-08-24] MEDS: BUPIVACAINE/EPINEPHRINE 0.25% 1:200,000 30 ML VIAL ONE (08:43)
[2024-08-24] MEDS: ceFAZolin 330 MG/ML 1 GM VIAL ONE (08:44)
[2024-08-24] MEDS: SURGICEL ABSORB HEMOSTAT 2IN X 14IN TOP ONE (11:02)
[2024-08-24] MEDS: FLOSEAL HEMOSTATIC MATRIX 10ML TOP ONE (11:02)
[2024-08-24] MEDS ORDERED: HYDROmorphone INJ 2 MG/ML SYR/VIAL ONE (11:14)
--- NOTE | 2024-08-24 11:20 | Operative Report ---
Post Operative Report Pre & Post Diagnosis Operation Date: 08/24/24 07:45 Pre-Op Diagnosis: #1 lumbar spondylosis with radiculopathy #2 lumbar spondylolisthesis with radiculopathy #3 lumbar spinal stenosis Post-Op Diagnosis: Same I identified the patient and participated in the time-out.: Yes Procedure Operation Date: 08/24/24 07:45 Actual Procedures #1 revision decompression with bilateral medial facetectomies and foraminotomies L2-L3, L3-L4, L4-L5 and L5-S1. #2 posterior spinal fusion L2-S1. #3 placement posterior segmental instrumentation L2-S1 using Rice. #4 interbody fusion L2- L3, L3-L4, L4-L5 and L5-S1. #5 placement Spira 11 x 26 mm at L2-L3, 13 x 26 mm at L3-L4, 15 x 26 mm x 2 at L4-L5 and 12 x 26 mm x 2 at L5-S1. #6 placement of locally harvested morselized autograft and posterior gutters. #7 placement infuse collagen sponge combined with Koros in the posterior lateral gutters and os design interbody space. #8 application of versa wrap over the exposed dura. Surgeon Vahe Polo, DO Ict Sales Representative Radha Uribe Estimated Blood Loss 900 Findings Consistent with Post-Op Diagnosis Specimens None Indications This is a 79-year-old male that presents with above-mentioned diagnosis after failing course of nonoperative care is here for the above-mentioned procedure. Description of Procedure Patient was met with identified informed consent obtained. Patient was then taken to the operative suite underwent intubation placed in a prone position on the Db table atop the Juan Manuel frame. All bony prominences well-padded eyes inspected to ensure no external precipice to monitor. This point the lumbar spine was prepped and draped in normal sterile fashion. Sharp dissection with assistance of Bovie cautery performed down to expose the remaining lamina and transverse processes of L2 L3-L4-L5 and sacral ala bilaterally. From a caudal to cephalad fashion a revision complete laminectomy of the L4-5 was performed including bilateral medial facetectomies and foraminotomies addressing severe neural compression. This was followed by complete laminectomies of L4 L3 on L2 again with bilateral medial facetectomies and foraminotomies addressing all neural compression. Pedicle screws were then placed in L2 L3-L4-L5 and S1 levels bilaterally with assistance of fluoroscopy and appropriately sized roberto placed. By way of transfer approach on the right a discectomy of L5-S1 was performed endplates guided to subcortical the bone and a 12 x 26 mm spiral cage filled with os design bone graft after position. Then proceeded the left transforaminal region L5-S1. Again discectomy performed. Endplates guided to subcortical bleeding bone and a second 12 x 26 mm spiral cage filled with os design the rods then compressed locked in final position bilaterally. The transverse processes of L2-L3 L4-5 burred to subcortical bleeding bone tapped in position. Then proceeded to L for L5 and by way of transfer approach and a left discectomy performed endplates guided to subcortical bleeding bone and a 15 x 26 mm spiral cage filled with os design tapped in position. I proceeded to the right transforaminal region. Again discectomy performed. Endplates guided to subcortical the bone and a second 15 x 26 mm spiral cage filled with loss of design tapped in position. Then proceeded to L3-L4 and by way of a transforaminal approach on the left complete discectomy performed endplates guided to subcortical bony bone and a 13 x 26 mm spiral cage filled with os design bone graft after position. Then proceeded L2-L3 by way of a transforaminal portion right complete discectomy performed and a os design 11 x 26 mm spiral cage filled with os design tapped in position. The rods were then compressed and locked in final position bilaterally. The transverse processes of L2 L3-L4-L5 and the sacral ala burred to subcortical bleeding bone. Infuse collagen sponge, with Koros and local autograft placed in the posterior gutters. Versa wrap placed over exposed dura. 15 round CHACE drain inserted. Incision was then closed with 1 Vicryl the fascia 2-0 Vicryl subcutaneously and 4 Monocryl for final skin closure. Steri-Strips sterile dressing placed. Patient waken taken to the PACU in stable condition. Please note spinal cord monitoring visualized at procedure no changes noted. Radha Uribe was present at the entire surgery while the patient positioning complex portion of the surgery and possible closure. Im ordering 10 grams of Collagen Powder ([facility] A6010 Primary Dressing) and 10 bordered super absorbent ([facility] A6196 Secondary Dressing) to treat an incision wound that was caused by a spine procedure. The incision is approximately 2 cm(W) x 2 cm(L) down to the spinal column and epidural space 2 cm (D) in size and is a full thickness wound showing no signs of infection. Collagen comes in 1 gram packets so 10 packets were ordered. Given the size of the wound, with moderate exudate I chose to order a 10 day supply. The patient will be provided instructions for proper application of the collagen wound kit. The patient will be asked to apply the collagen powder daily and then cover it with sterile dressings dispensed. Collagen was selected as I expect the collagen to attract monocytes and fibroblasts, act as a sacrificial substrate for MMPs, and ultimately proved a matrix for tissue and vessel growth. The collagen will act as a primary dressing in this scenario. It is medically necessary for proper healing of these wounds to improve bioavailability and contact with each wound surface, this is also to help prevent infection of wounds and promote healing ultimately leading to a better healing outcome and limit the risk of infection. I attest to the content of the Intraoperative Record and any orders documented therein. Any exceptions are noted below.
--- NOTE | 2024-08-24 12:13 | Fluoroscopy Report ---
FL lumbar spine 2-3V CLINICAL HISTORY: L2-S1 DECOMPRESSION COMPARISON STUDY: CT of the abdomen and pelvis December 11, 2023. Fluoroscopy time: 29 seconds. Number of fluoroscopic images: 4 Ka,r: 15.74 mGy. FINDINGS: Fluoroscopy was provided during L2-S1 decompression and fusion. There are interbody spacers at the L2-L3, L3-L4, L4-L5 and L5-S1 levels. Hardware is intact. No unexpected radiopaque foreign dilan dies. IMPRESSION: Fluoroscopy provided during L2-S1 decompression and fusion. ACT 112: Negative or not required by law. Electronically signed by: Garrett Patel M.D. 08/24/2024 12:11 PM
--- NOTE | 2024-08-24 13:44 | Anesthesiology Progress Note ---
Date of Service August 24, 2024 Anesthesia Post Procedure Vital Signs Vital Signs: Temp Pulse Resp BP Pulse Ox O2 Del Method O2 Flow Rate 08/24/24 13:30 36.5 C 83 20 103/52 L 92 Nasal Cannula 4 08/24/24 13:20 77 13 106/52 L 88 L Oxymask 4 08/24/24 13:10 77 13 93/45 L 92 Oxymask 4 08/24/24 13:00 82 21 108/53 L 88 L Oxymask 4 08/24/24 12:50 85 21 122/59 L 90 Oxymask 4 08/24/24 12:40 84 17 111/51 L 91 Oxymask 12 08/24/24 12:30 91 H 20 95/66 L 92 Oxymask 12 08/24/24 12:20 87 19 109/56 L 88 L Oxymask 4 08/24/24 12:10 94 H 21 92/50 L 89 L Oxymask 8 08/24/24 12:00 83 19 115/52 L 91 Oxymask 15 08/24/24 11:50 84 20 103/61 89 L Oxymask 15 08/24/24 11:40 89 21 142/71 H 93 Oxymask 12 08/24/24 11:34 36.0 C L 98 H 20 121/75 92 Oxymask 12 08/24/24 06:44 36.6 C 67 20 154/71 H 98 Room Air Pain Intensity Lower Back: Pain Intensity: 2 Transfer of Care Handoff Completed per policy Notes Mental Status: alert / awake / arousable Patient Amnestic to Procedure: Yes Nausea / Vomiting: adequately controlled Pain: adequately controlled Airway Patency, RR, SpO2: stable & adequate BP & HR: stable & adequate Hydration State: stable & adequate Anesthetic Complications: no major complications apparent
[2024-08-24] MEDS ORDERED: ACETAMINOPHEN 1,000 MG/100 ML VIAL IV PRN (14:20)
[2024-08-24] MEDS ORDERED: DO NOT ADMINISTER PNEUMOCOCCAL VACCINE PRN (14:20)
[2024-08-24] MEDS ORDERED: NALOXONE HCL 0.4 MG/1 ML VIAL/CARP IV PRN (14:20)
[2024-08-24] MEDS ORDERED: FAMOTIDINE 20 MG TAB PO PRN (14:20)
[2024-08-24] MEDS ORDERED: LORazepam 0.5 MG TAB PO PRN (14:20)
[2024-08-24] MEDS ORDERED: LORazepam 2 MG/1 ML VIAL IV PRN (14:20)
[2024-08-24] MEDS ORDERED: DO NOT ADMINISTER FLU VACCINE PRN (14:20)
[2024-08-24] MEDS ORDERED: SOD PHOSPHATE/SOD BIPHOSPHATE ENEMA 132 ML BTL PR PRN (14:20)
[2024-08-24] MEDS ORDERED: ALUMINUM/MAGNESIUM SUSP 30 ML UDC PO PRN (14:20)
[2024-08-24] MEDS ORDERED: diphenhydrAMINE Capsule 25 MG CAP PO PRN (14:20)
[2024-08-24] MEDS ORDERED: hydrOXYzine HCl 25 MG TAB PO PRN (14:20)
[2024-08-24] MEDS ORDERED: PROMETHAZINE 12.5 MG/50.5 ML BAG IV PRN (14:20)
[2024-08-24] MEDS ORDERED: DICYCLOMINE HCL 10 MG CAP PO PRN (14:20)
[2024-08-24] MEDS ORDERED: METOCLOPRAMIDE HCL INJ 5 MG/ML 2 ML VIAL IV PRN (14:20)
[2024-08-24] MEDS ORDERED: bisacodyL 10 MG SUPP PR PRN (14:20)
[2024-08-24] MEDS ORDERED: ONDANSETRON 4 MG OD TAB PO PRN (14:20)
[2024-08-24] MEDS ORDERED: PHARMACY GLYCEMIC MGMT CONSULT PRN (14:20)
[2024-08-24] MEDS ORDERED: MAGNESIUM HYDROXIDE SUSP 30 ML UDC PO PRN (14:20)
[2024-08-24] MEDS ORDERED: HYDROmorphone INJ 0.5 MG/0.5 ML SYR IV PRN (14:20)
[2024-08-24] MEDS ORDERED: ONDANSETRON INJ 2 MG/ML 2 ML VIAL IV PRN (14:20)
[2024-08-24] MEDS ORDERED: CARBOHYDRATES FOR HYPOGLYCEMIA PO PRN ×2 (14:45→15:33)
[2024-08-24] MEDS ORDERED: GLUCOSE 10 TAB/TUBE PO PRN ×2 (14:45→15:33)
[2024-08-24] MEDS ORDERED: GLUCAGON FOR INJ 1 MG VIAL SQ PRN ×2 (14:45→15:33)
[2024-08-24] MEDS ORDERED: DEXTROSE 50% 50 ML SYRINGE IV PRN ×2 (14:45→15:33)
[2024-08-24] MEDS ORDERED: GLUCOSE 40% GEL 15 GM TUBE PO PRN ×2 (14:45→15:33)
--- NOTE | 2024-08-24 14:46 | Pharmacy Report ---
Pharmacy Glycemic Short Note 2 - Date of Service August 24, 2024 - Glycemic Short BSG Results (Last 24 hours): 08/24/24 08/24/24 08/24/24 06:45 11:45 14:14 POC Glucose 136 H 206 H 230 H OUTPATIENT ANTIDIABETIC REGIMEN: * Lantus 15 units SQ HS * Metformin 1000mg PO BID * A1c 8% 07/22/24 ASSESSMENT: * 79 yo M, s/p spinal surgery, type 2 DM, blood sugars increasing d/t IV Steroids given, patient to continue on Dexamethasone 6mg daily x 3 days. * Basal bolus insulin and titrate to goal blood sugar. PLAN FOR INPATIENT GLYCEMIC CONTROL: * Hold outpatient oral diabetes medications * Basal insulin * Lantus 30 units SQ x 1 dose now, then 15 units SQ HS for BSG 180mg/dl or greater, further dosing tomorrow morning * Bolus insulin * NovoLog per scale ACHS or Q6hrs while NPO * Goal Range: Low 110 mg/dL - High 140 mg/dL * Correction Factor: 20 mg/dL/unit * Nutritional / Prandial insulin per carb ratio of 1 unit per 6 grams CHO consumed
--- NOTE | 2024-08-24 14:58 | Consultation ---
Date of Consultation August 24, 2024 Assessment & Plan (1) Postoperative hypoxia: (2) Postoperative hypotension: (3) Two-level lumbosacral spondylosis with radiculopathy: (4) CAD (coronary artery disease): (5) Chronic obstructive pulmonary disease: (6) Diabetes mellitus, type 2: Plan This is a 79 yr old M who has a significant PMH of CAD, T2DM, HTN, HLD, diabetic polyneuropathy, COPD, Barretts esophagus, BPH, RLS, Chronic low back pain hx of of esophageal cancer s/p ablation and depression who presents to elective procedure by Dr. Polo. #S/p Lumbar decompression/fusion by Dr. Polo POD #0 EBL 900ml, tolerated procedure well Per bedside nurse Cheryl it was reported pt had large emesis prior to extubation, he admits to strict NPO after midnight pre op hgb 14.1 pain/wound management per ortho activity and therapy as per ortho #Post operative hypoxia #COPD - remote hx of smoking quit in his 40s reported large emesis prior to extubation lungs sound clear, hx of COPD continue O2 supplementation, currently on 4L, goal 88-92% give duoneb, budesonide and formoterol now continue Breo, await CXR results, continue to monitor for development of aspiration PNA in next 48hrs encouraged incentive spirometry #Post op hypotension SBP 80s-90s, suspect volume down give 500ml x 1 now, will give additional 500ml if BP still low continue maintenance fluids, check cbc, cmp, mag, lactic acid #T2DM glycemic pharmacy consulted, a1c 8.0 in june 2024 hold metformin, lantus/novolog per protocol #CAD/HTN/HLD on asa, metoprolol pt did not take this morning, will resume #Barretts esophagus/hx of eosphageal ca s/p ablation cont PPI #Diabetic Foot Ulcer, Right, POA, stage II consult wound care for dressing recs #DVT ppx: per primary PCP: Dr. Barros FULL CODE Dispo: per primary Pt was seen and examined in collaboration with Dr. Whitehead, please see addendum I spent a total of 50 minutes coordinating, documenting and providing care for this patient excluding time spent in the performance of separately billed services or time spent by another provider/QHP. Thank you for this consultation. We will follow the patient with you during their hospital stay. You can reach a member of the [facility] Hospitalist Team 18/11 via hospitalist role on tiger text. Supervising Physician Co-Signing Physician Notes Patient seen and examined independently. Discussed with our provider. He is lying on the bed comfortably; denies any pain or discomfort. He denies cough or increasing shortness of breath. He tolerated diet well. Continue DuoNebs. Continue pain control, PT OT, bowel regimen. I have reviewed the advanced practitioner's documentation, and I agree with, and take responsibility for the plan of care I spent a total of 20 minutes coordinating, documenting, and providing care for this patient excluding time spent in the performance of separately billed services. All of the aforementioned completed while collaborating with the assigned advanced practitioner for a full treatment plan History of Present Illness Requesting Physician: Dr. Polo Reason for Consultation: Post op medical management Attending Physician: Vahe Polo, DO History of Present Illness This is a 79 yr old M who has a significant PMH of CAD, T2DM, HTN, HLD, diabetic polyneuropathy, COPD, Barretts esophagus, BPH, RLS, Chronic low back pain hx of of esophageal cancer s/p ablation and depression who presents to elective procedure by Dr. Polo. He underwent an L2-S1 decompression/fusion by Dr. Polo. He tolerated the procedure well. His EBL was 900ml. Hx obtained from pt and external chart review. His son and are also at bedside who assist with hx. He underwent Cardiac Clearance by [facility] cardiology. His last nuclear stress test was 08/26/23 and negative for inducible ischemia. He does have moderate aortic valve sclerosis. It was recommended he continue asa 81mg daily and metoprolol succinate perioperatively. He states he feels well post operatively. He denies any pain. He denies f/c/s, chest pain, cough, n/v/d abd pain. He does feel slightly sob and complains of being dizzy, but denies pre syncope. Nurse Cheryl at bedside is reporting lower blood pressure and hypoxia upon arriving to the floor. He is requiring 4L of O2 to maintain 88% and SBP 80-90s systolic. Allergies Allergy/AdvReac Type Severity Reaction Status Date / Time No Known Allergies Allergy Verified 08/24/24 06:46 Home Medications Medication Instructions Recorded Confirmed Type gabapentin 300 mg capsule 600 mg PO BID 12/29/17 08/24/24 History metformin 1,000 mg tablet 1,000 mg PO BIDM 12/29/17 08/24/24 History multivit with minerals-iron 18 1 tab PO QAM 12/29/17 08/24/24 History mg-folic ac 400 mcg-vit K 25 mcg tablet (Multi-Day Plus Minerals) pantoprazole 40 mg tablet,delayed 40 mg PO BID 12/29/17 08/24/24 History release (Protonix) sertraline 50 mg tablet 50 mg PO HS 12/29/17 08/24/24 History tamsulosin 0.4 mg capsule 0.8 mg PO QAM 12/29/17 08/24/24 History insulin glargine 100 unit/mL 15 unit subcut HS 07/01/19 08/24/24 History subcutaneous solution (Lantus U-100 Insulin) rosuvastatin 40 mg tablet 40 mg PO HS 01/17/21 08/24/24 History cyanocobalamin (vitamin B-12) 100 100 mcg PO QAM 10/06/21 08/24/24 History mcg tablet (Vitamin B-12) fluticasone 250 mcg-salmeterol 50 1 inh inhalation BID 10/06/21 08/24/24 History mcg/dose blistr powdr for inhalation (Advair Diskus) metoprolol succinate 25 mg 12.5 mg PO QAM 10/06/21 08/24/24 History tablet,extended release 24 hr aspirin 81 mg tablet,delayed 81 mg PO QAM 01/06/23 08/24/24 History release (Adult Aspirin Regimen) acetaminophen 325 mg tablet 650 mg PO Q6H PRN Pain 10/05/23 08/24/24 History (Tylenol) amoxicillin 500 mg capsule 2,000 mg PO DIRECTED PRN 1 HR 10/05/23 08/24/24 History PRIOR TO DENTAL PROCEDURES cholecalciferol (vitamin D3) 50 50 mcg PO BID 10/05/23 08/24/24 History mcg (2,000 unit) capsule (Vitamin D3) dicyclomine 10 mg capsule 10 mg PO TID PRN ABD PAIN 10/05/23 08/24/24 History latanoprost 0.005 % eye drops 1 drp OPB HS 10/05/23 08/24/24 History magnesium oxide 400 mg (241.3 mg 400 mg PO QAM 10/05/23 08/24/24 History magnesium) tablet (MgO) potassium chloride 10 mEq 5 meq PO QAM 10/05/23 08/24/24 History tablet,extended release(part/cryst) pramipexole 0.25 mg tablet 0.25 mg PO HS 10/05/23 08/24/24 History psyllium 1 packet PO QAM 10/05/23 08/24/24 History tramadol 50 mg tablet 50 mg PO Q6H PRN Pain 10/05/23 08/24/24 History Lactobacillus acidophilus 250 500 mmu cells (2 x 250 million 10/08/23 08/24/24 Rx million cell capsule (Probiotic cell) PO DAILY #60 caps Acidophilus) ibuprofen 200 mg tablet 200 mg PO Q6H PRN Pain 07/14/24 08/24/24 History Patient History Medical History History of blood transfusion during diverticulitis History of diverticulitis last episode 4 years ago Hx of myocardial infarction remote CAD (coronary artery disease) follows with Dr. House Diabetes mellitus, type 2 HTN (hypertension) controlled, stable per pt COPD (chronic obstructive pulmonary disease) no res inh use per pt Depression with anxiety Alberto's esophagus Poor historian BPH (benign prostatic hyperplasia) Hx of Clostridium difficile infection (~2021) Temporomandibular joint disorder occasional locking-last occurred several weeks ago HLD (hyperlipidemia) Restless leg syndrome Diabetic neuropathy feet Surgical History History of tooth extraction History of tonsillectomy Hx of inguinal hernia repair History of total knee replacement bilat History of cholecystectomy Hx of total shoulder replacement bilat Squamous cell carcinoma of nose removed History of cardiac cath Remote history of, mild, nonobstructive CAD noted History of cystoscopy with stent History of carpal tunnel release right History of cataract surgery bilat History of back surgery pt unsure of level History of colonoscopy History of esophagogastroduodenoscopy (EGD) multiple Family History Sister Family history of diabetes mellitus Brother Family history of diabetes mellitus Uncle Family history of diabetes mellitus Father Family history of diabetes mellitus Social History Smoking Status: Former smoker Tobacco Type: Cigarettes Smoking End Date: 1989; Second Hand Exposure: No; Do You Dip or Chew Tobacco: No; Tobacco Cessation Education Requested by Patient: No Hx Alcohol Use: Yes Alcohol type: beer, wine and hard liquor Hx Substance Use: No Preferred Language: [place] Communication Ability: Effective 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 Press Tender Required: No Beliefs That Will Affect Care: None marital status: Current Living Situation: Spouse current occupational status: retired Other Information That Helps Us Care for You: No Feels Safe at Home: Yes Safety Concerns: Feels Safe At This Time Assistive Devices: Cane and Walker Review of Systems Review of Systems: All systems reviewed & are unremarkable except as noted in HPI & below Physical Exam Physical Exam: Constitutional: WD/WN, vitals as above, NAD, sitting up in bed, pleasant, conversing easily, [place], Head: Normocephalic, Atraumatic Eyes: PERRL, conjunctivae normal, anicteric sclerae ENMT: external ear and nose normal, oropharynx normal Neck: trachea midline, no thyromegaly normal visual inspection Respiratory: normal respiratory effort, lungs clear to auscultation, no wheeze, rales, rhonchi. Normal insp/exp effort, no accessory muscle use Cardiovascular: RRR, no murmur, no edema Vessels: no JVD or carotid bruit Chest: normal inspection of chest Abdomen: normal bowel sounds, soft, nontender, no hepatosplenomegaly Musculoskeletal: no cyanosis or clubbing, extremities motor strength 5/5 Skin: + R ventral diabetic foot ulcer, no rashes, warm and dry normal turgor Neurologic: PERRL, EOMI, accommodation nl, no face palsy, no dysarthria CN's II-XI intact bilaterally and moves all extremities Psychiatric: A+Ox3, euthymic affect Lymphatic: no cervical or axillary lymphadenopathy : deferred Results & Data Vital Signs (Past 12 Hours) Vital Signs Temp Pulse Pulse Resp BP Pulse Ox O2 Del Method 08/24/24 14:35 36.4 C L 80 18 91/53 L 88 L Nasal Cannula 08/24/24 14:00 78 18 115/59 L 92 Nasal Cannula 08/24/24 13:45 77 17 108/52 L 91 Nasal Cannula 08/24/24 13:30 36.5 C 83 20 103/52 L 92 Nasal Cannula 08/24/24 13:20 77 13 106/52 L 88 L Oxymask 08/24/24 13:10 77 13 93/45 L 92 Oxymask 08/24/24 13:00 82 21 108/53 L 88 L Oxymask 08/24/24 12:50 85 21 122/59 L 90 Oxymask 08/24/24 12:40 84 17 111/51 L 91 Oxymask 08/24/24 12:30 91 H 20 95/66 L 92 Oxymask 08/24/24 12:20 87 19 109/56 L 88 L Oxymask 08/24/24 12:10 94 H 21 92/50 L 89 L Oxymask 08/24/24 12:00 83 19 115/52 L 91 Oxymask 08/24/24 11:50 84 20 103/61 89 L Oxymask 08/24/24 11:40 89 21 142/71 H 93 Oxymask 08/24/24 11:34 36.0 C L 98 H 20 121/75 92 Oxymask 08/24/24 06:44 36.6 C 67 20 154/71 H 98 Room Air O2 Flow Rate 08/24/24 14:35 4 08/24/24 14:00 4 08/24/24 13:45 4 08/24/24 13:30 4 08/24/24 13:20 4 08/24/24 13:10 4 08/24/24 13:00 4 08/24/24 12:50 4 08/24/24 12:40 12 08/24/24 12:30 12 08/24/24 12:20 4 08/24/24 12:10 8 08/24/24 12:00 15 08/24/24 11:50 15 08/24/24 11:40 12 08/24/24 11:34 12 08/24/24 06:44 Laboratory Results Pt had pre operative labs drawn on 06/16/24 at [facility]. This was reviewed via [employer]. He had a lipid panel, BMP, A1C of 8.0, LFTS Diagnostic Findings Lumbar Spine X-Ray 08/24/24 07:45 FL lumbar spine 2-3V CLINICAL HISTORY: L2-S1 DECOMPRESSION COMPARISON STUDY: CT of the abdomen and pelvis December 11, 2023. Fluoroscopy time: 29 seconds. Number of fluoroscopic images: 4 Ka,r: 15.74 mGy. FINDINGS: Fluoroscopy was provided during L2-S1 decompression and fusion. There are interbody spacers at the L2-L3, L3-L4, L4-L5 and L5-S1 levels. Hardware is intact. No unexpected radiopaque foreign bodies. IMPRESSION: Fluoroscopy provided during L2-S1 decompression and fusion. ACT 112: Negative or not required by law. Electronically signed by: Garrett Patel M.D. 08/24/2024 12:11 PM Medications Administered Current Inpatient Medications Acetaminophen (Acetaminophen 500 Mg Tab) 1,000 mg PO PREOP EVA Stop: 08/24/24 18:00 Last Admin: 08/24/24 06:55 Dose: 1,000 mg Acetaminophen (Acetaminophen 500 Mg Tab) 1,000 mg PO Q8H PRN PRN Reason: MILD Pain Scale 1,2,3 & Pre PT Stop: 09/23/24 14:19 Al Hydrox/Mg Hydrox/Simethicone (Aluminum/Magnesium Susp 30 Ml Udc) 30 ml PO Q6H PRN PRN Reason: Dyspepsia Stop: 09/23/24 14:19 Aspirin (Aspirin 81 Mg Ectab) 81 mg PO QAM EVA Stop: 09/24/24 08:59 Atropine Sulfate (Atropine Sulfate 0.1 Mg/Ml 10ml Syr) 0.5 mg IV Q1M PRN PRN Reason: PACU Use-HR<40 &/or Bradycardi Stop: 08/24/24 15:03 Bisacodyl (Bisacodyl 10 Mg Supp) 10 mg MD DAILY PRN PRN Reason: Constipation Stop: 09/23/24 14:19 Celecoxib (Celebrex 200 Mg Cap) 200 mg PO PREOP EAV Stop: 08/24/24 18:00 Last Admin: 08/24/24 06:55 Dose: 200 mg Cyanocobalamin (Cyanocobalamin (B-12) 100 Mcg Tablet) 100 mcg PO QAM EVA Stop: 09/24/24 08:59 Dextrose (Dextrose 50% 50 Ml Syringe) 25 - 50 ml IV UD PRN; Protocol PRN Reason: Hypoglycemia Protocol Stop: 09/23/24 14:44 Dicyclomine HCl (Dicyclomine Hcl 10 Mg Cap) 10 mg PO TID PRN PRN Reason: ABD PAIN Stop: 09/23/24 14:19 Diphenhydramine HCl (Diphenhydramine Capsule 25 Mg Cap) 25 mg PO Q6H PRN PRN Reason: Allergic Rhinitis/Insomnia Stop: 09/23/24 14:19 Famotidine (Famotidine 20 Mg Tab) 20 mg PO Q12H PRN PRN Reason: Dyspepsia Stop: 09/23/24 14:19 Gabapentin (Gabapentin 300 Mg Cap) 300 mg PO PREOP EVA Stop: 08/24/24 18:00 Last Admin: 08/24/24 06:55 Dose: 300 mg Gabapentin (Gabapentin 300 Mg Cap) 600 mg PO BID EVA Stop: 09/23/24 20:59 Glucagon (Glucagon For Inj 1 Mg Vial) 1 mg SQ UD PRN; Protocol PRN Reason: Hypoglycemia Protocol Stop: 09/23/24 14:44 Glucose (Glucose 40% Gel 15 Gm Tube) 15 - 30 gm PO UD PRN; Protocol PRN Reason: Hypoglycemia Protocol Stop: 09/23/24 14:44 Glucose (Glucose 10 Tab/Tube) 4 - 8 tab PO UD PRN; Protocol PRN Reason: Hypoglycemia Protocol Stop: 09/23/24 14:44 Hydromorphone HCl (Hydromorphone Inj 1 Mg/Ml Syringe) 0.25 mg IV Q5M PRN PRN Reason: PACU Use Only-Pain Stop: 08/24/24 15:03 Hydromorphone HCl (Hydromorphone Inj 0.5 Mg/0.5 Ml Syr) 0.5 mg IV Q3H PRN PRN Reason: MODERATE Pain (Scale 4,5,6) & Pre PT Stop: 09/07/24 14:19 Hydromorphone HCl (Hydromorphone Inj 1 Mg/Ml Syringe) 1 mg IV Q3H PRN PRN Reason: SEVERE Pain (Scale 7,8,9,10) Stop: 09/07/24 14:19 Hydroxyzine HCl (Hydroxyzine Hcl 25 Mg Tab) 25 mg PO Q8H PRN PRN Reason: Anxiety Stop: 09/23/24 14:19 Lactated Ringer's (Lr) 1,000 mls @ 60 mls/hr IV .[id number] EVA Stop: 08/24/24 22:39 Last Admin: 08/24/24 06:54 Dose: Not Given Cefazolin Sodium (Ancef 2000mg) 2,000 mg in 15 mls @ 3.75 mls/min IV PREOP EVA; Protocol Stop: 08/24/24 18:00 Last Admin: 08/24/24 07:52 Dose: 3.75 mls/min Lactated Ringer's (Lr) 1,000 mls @ 15 mls/hr IV .Q24H EVA Stop: 08/25/24 05:59 Last Infusion: 08/24/24 07:50 Dose: Infused Promethazine HCl 6.25 mg/ (Sodium Chloride) 50.25 mls @ 204 mls/hr IV ONCE PRN PRN Reason: PACU Use Only-Nausea/Vomiting Stop: 08/24/24 15:03 Acetaminophen (Ofirmev) 1,000 mg in 100 mls @ 400 mls/hr IV Q8H PRN PRN Reason: Pain Rating 1-3 & Pre PT Stop: 08/25/24 14:21 Cefazolin Sodium (Ancef 2000mg) 2,000 mg in 15 mls @ 3.75 mls/min IV Q8H EVA; Protocol Stop: 08/25/24 01:33 Promethazine HCl (Phenergan) 12.5 mg in 50.5 mls @ 202 mls/hr IV Q6H PRN PRN Reason: Nausea And Vomiting Stop: 09/23/24 14:19 Dexamethasone 6 mg/ Syringe 1.5 mls @ 1 mls/min IV DAILY [facility] Stop: 08/27/24 09:02 Influenza Virus Vaccine Quadrival (Do Not Administer Flu Vaccine) 1 each N/A PRN PRN PRN Reason: Notification Stop: 09/23/24 14:19 Insulin Aspart (Insulin Aspart Per Unit Charge) 0 units SC ACHS EVA Stop: 09/23/24 14:44 Insulin Glargine (Lantus Per Unit Charge) 0 units SC HS ONE; Protocol Stop: 08/24/24 21:01 Latanoprost (Latanoprost 0.005% Op Soln 2.5 Ml Btl) 1 drops OPB HS EVA Stop: 09/23/24 20:59 Lorazepam (Lorazepam 0.5 Mg Tab) 0.5 mg PO Q8H PRN PRN Reason: Sedation/Anxiety Stop: 09/23/24 14:19 Lorazepam (Lorazepam 2 Mg/1 Ml Vial) 0.5 mg IV Q8H PRN PRN Reason: Sedation/Anxiety Stop: 09/23/24 14:19 Magnesium Hydroxide (Magnesium Hydroxide Susp 30 Ml Udc) 30 ml PO Q24H PRN PRN Reason: Constipation Stop: 09/23/24 14:19 Magnesium Oxide (Magnesium Oxide 400 Mg Tab) [facility]: 09/24/24 08:59 Metoclopramide HCl (Metoclopramide Hcl Inj 5 Mg/Ml 2 Ml Vial) 10 mg IV Q6H PRN PRN Reason: Nausea &/or Vomiting Stop: 09/23/24 14:19 Metoprolol Succinate (Metoprolol Succ 25mg Ext Rel Tab) 12.[facility] Stop: 09/24/24 08:59 Miscellaneous (Carbohydrates For Hypoglycemia ) 15 - 30 gm PO UD PRN PRN Reason: Hypoglycemia Treatment Stop: 09/23/24 14:44 Miscellaneous Information (Pharmacy Glycemic Mgmt Consult) 1 each N/A UD PRN PRN Reason: Consult Stop: 09/23/24 14:19 Naloxone HCl (Naloxone Hcl 0.4 Mg/1 Ml Vial/Carp) 0.1 mg IV Q5M PRN PRN Reason: Oversedation/Resp depression Stop: 09/23/24 14:19 Non-Formulary Medication (Lactobacillus Acidophilus [Probiotic Acidophilus]) 500 mmu cells PO DAILY [facility] Stop: 09/24/24 08:59 Non-Formulary Medication (Fruuabflfwze-Dde-Ahjw-Fa-Vit K [Multi-Day Plus Minerals]) [facility] [place]: 09/24/24 08:59 Non-Formulary Medication (Potassium Chloride) 5 meq [facility] Stop: 09/24/24 08:59 Ondansetron HCl (Ondansetron Inj 2 Mg/Ml 2 Ml Vial) 4 mg IV Q6H PRN PRN Reason: Nausea &/or Vomiting Stop: 09/23/24 14:19 Ondansetron HCl (Ondansetron 4 Mg Od Tab) 4 mg PO Q6H PRN PRN Reason: Nausea Stop: 09/23/24 14:19 Oxycodone HCl (Oxycodone Hcl Ir 5 Mg Tab (Immediate Release)) 5 - 10 mg PO Q4H PRN PRN Reason: Pain & Pre PT Stop: 09/07/24 14:19 Pantoprazole Sodium (Pantoprazole 40 Mg Tab) 40 mg PO BID EVA Stop: 09/23/24 20:59 Pneumococcal Polyvalent Vaccine (Do Not Administer Pneumococcal Vaccine) 1 each N/A PRN PRN PRN Reason: Notification Stop: 09/23/24 14:19 Polyethylene Glycol (Polyethylene (Miralax) 17 Gm Pack) 17 gm PO Q6 EVA Stop: 09/24/24 05:59 Pramipexole Dihydrochloride (Pramipexole Dihydrochlo 0.25 Mg Tab) 0.25 mg PO HS EVA Stop: 09/23/24 20:59 Rosuvastatin Calcium (Rosuvastatin Calcium 20 Mg Tab) 40 mg PO HS EVA Stop: 09/23/24 20:59 Fluticasone/Salmeterol (Fluticasone/Salmeterol 250/50 (Advair) 14 Puff/1 Inhaler) 1 puffs INH BID EVA Stop: 09/23/24 20:59 Senna/Docusate Sodium (Docusate Sodium/Senna 50/8.6mg Tab) 2 tab PO HS EVA Stop: 09/23/24 20:59 Sertraline HCl (Sertraline Hcl 50 Mg Tablet) 50 mg PO HS EVA Stop: 09/23/24 20:59 Sodium Biphosphate/Sodium Phosphate (Sod Phosphate/Sod Biphosphate Enema 132 Ml Btl) 132 ml MD ONE PRN PRN Reason: Constipation Stop: 09/23/24 14:19 Tamsulosin HCl (Tamsulosin Hcl 0.4 Mg Cap) 0.8 mg PO QAM EVA Stop: 09/24/24 08:59 Tramadol HCl (Tramadol Hcl 50 Mg Tablet) 50 - 100 mg PO Q4H PRN PRN Reason: Moderate-Severe pain & Pre PT Stop: 09/23/24 14:19 Vitamin D (Cholecalciferol 25 Mcg (1000 Units) Tab) 50 mcg PO BID EVA Stop: 09/23/24 20:59 ECG Additional Comments: I have independently reviewed and interpreted patient's admitting EKG which revealed: NSR, 70 bom, qtc 412ms
[2024-08-24] MEDS: INSULIN ASPART PER UNIT CHARGE SC SCH (15:13)
[2024-08-24] MEDS: LANTUS PER UNIT CHARGE SC ONE ×2 (15:13→20:52)
[2024-08-24] MEDS: SODIUM CHLORIDE 0.9% 500 ML IV ONE ×2 (15:52→16:06)
[2024-08-24 15:53] LABS: Basophils # (auto) 0.01 K/uL (0.00-0.20); Basophils % (auto) 0.1 %; Hematocrit (blood only) 32.6 % (42.0-52.0); Hemoglobin 10.8 g/dl (14.0-18.0); Immature Granulocytes # (auto) 0.05 K/uL (0.01-0.20); Immature Granulocytes % (auto) 0.6 %; Lymphocytes # (auto) 0.68 K/uL (1.20-3.40); Lymphocytes % (auto) 7.7 %; Mean Corpuscular Hemoglobin 29.9 pg (25.0-34.0); Mean Corpuscular Hgb Conc 33.1 g/dL (32.0-36.0); Mean Corpuscular Volume 90.3 fL (80.0-100.0); Mean Platelet Volume 9.4 fL (9.4-12.4); Monocytes % (auto) 5.7 %; Neutrophils # (auto) 7.54 K/uL (1.40-6.50); Neutrophils % (auto) 85.9 %; Platelet Count 137 K/uL (130-400); RDW Coefficient of Variation 14.4 % (11.5-14.5); RDW Standard Deviation 46.7 fL (36.4-46.3); Red Blood Count 3.61 M/uL (4.70-6.10); White Blood Count 8.78 K/ul (4.8-10.8)
--- NOTE | 2024-08-24 16:05 | XRay Report ---
XR chest 1V portable CLINICAL HISTORY: Hypoxia. COMPARISON STUDY: Chest radiograph July 22, 2024. FINDINGS: Bilateral shoulder arthroplasties are incidentally noted. There is no pneumothorax. Lung po ints are diminished. Cardiomediastinal silhouette is unremarkable. Bibasilar opacities are present. T here is apparent pulmonary vascular congestion. IMPRESSION: 1. Low lung volumes with bibasilar opacities that favor atelectasis. Pneumonia or aspiration pneumoni tis could appear similar but are considered less likely. 2. Apparent pulmonary vascular congestion, possibly technical. ACT 112: Negative or not required by law. Electronically signed by: Garrett Patel M.D. 08/24/2024 4:03 PM
[2024-08-24 16:08] LABS: Albumin Level 3.4 gm/dl (3.4-5.0); Bilirubin,Total 0.5 mg/dl (0.2-1.0); Calcium 8.3 mg/dl (8.6-10.3)
[2024-08-24 16:14] LABS: Albumin Globulin Ratio 1.2 (0.9-2); BUN Creatinine Ratio 20.9 (10-20); Creatinine Clr Calc Pharmacy 65.1 ml/min; Globulin 2.9 gm/dl (2.5-4.0); Total Protein 6.3 gm/dl (6.0-8.3)
[2024-08-24] MEDS: MAGNESIUM SULFATE / D5W 1 GM/100 ML BAG IV SCH (16:55)
[2024-08-24] MEDS: BUDESONIDE 0.25 MG/2 ML VIAL (PULMICORT) NEB STA (17:04)
[2024-08-24] MEDS: ALBUT/IPRATROP 3MG/0.5MG NEB 3 ML VIAL NEB STA (17:05)
[2024-08-24] MEDS: FORMOTEROL 20 MCG/2 ML VIAL NEB STA (17:05)
[2024-08-24] MEDS: ACETAMINOPHEN 500 MG TAB PO PRN (17:49)
[2024-08-24] MEDS: CHOLECALCIFEROL 25 MCG (1000 UNITS) TAB PO SCH (20:32)
[2024-08-24] MEDS: ROSUVASTATIN CALCIUM 20 MG TAB PO SCH (20:33)
[2024-08-24] MEDS: PRAMIPEXOLE DIHYDROCHLO 0.25 MG TAB PO SCH (20:33)
[2024-08-24] MEDS: SERTRALINE HCL 50 MG TABLET PO SCH (20:33)
[2024-08-24] MEDS: PANTOprazole 40 MG TAB PO SCH (20:33)
[2024-08-24] MEDS: LATANOPROST 0.005% OP SOLN 2.5 ML BTL OPB SCH (20:33)
[2024-08-24] MEDS: DOCUSATE SODIUM/SENNA 50/8.6MG TAB PO SCH (20:36)
[2024-08-25] MEDS: SODIUM CHLORIDE 0.9% 500 ML IV SCH (00:33)
[2024-08-25] MEDS: POLYETHYLENE (MIRALAX) 17 GM PACK PO SCH (05:06)
[2024-08-25 08:23] LABS: Basophils # (auto) 0.01 K/uL (0.00-0.20); Basophils % (auto) 0.1 %; Eosinophils # (auto) 0.02 K/uL (0.00-0.50); Eosinophils % (auto) 0.2 %; Hematocrit (blood only) 31.5 % (42.0-52.0); Hemoglobin 10.4 g/dl (14.0-18.0); Immature Granulocytes # (auto) 0.03 K/uL (0.01-0.20); Immature Granulocytes % (auto) 0.4 %; Lymphocytes # (auto) 0.94 K/uL (1.20-3.40); Lymphocytes % (auto) 11.2 %; Mean Corpuscular Hemoglobin 29.9 pg (25.0-34.0); Mean Corpuscular Volume 90.5 fL (80.0-100.0); Mean Platelet Volume 9.3 fL (9.4-12.4); Monocytes # (auto) 0.82 K/uL (0.11-0.59); Monocytes % (auto) 9.8 %; Neutrophils # (auto) 6.55 K/uL (1.40-6.50); Neutrophils % (auto) 78.3 %; Platelet Count 142 K/uL (130-400); RDW Coefficient of Variation 14.6 % (11.5-14.5); RDW Standard Deviation 47.8 fL (36.4-46.3); Red Blood Count 3.48 M/uL (4.70-6.10); White Blood Count 8.37 K/ul (4.8-10.8)
[2024-08-25 08:41] LABS: BUN Creatinine Ratio 23.5 (10-20); Calcium 8.8 mg/dl (8.6-10.3); Creatinine Clr Calc Pharmacy 84.2 ml/min; Magnesium 1.8 mg/dl (1.7-2.4); Potassium 4.3 mmol/L (3.5-5.1)
[2024-08-25] MEDS: FLUTICASONE/VILANTEROL 100/25MCG 14 PUFFS/INHALER INH SCH (08:47)
[2024-08-25] MEDS: MAGNESIUM OXIDE 400 MG TAB PO SCH (08:48)
[2024-08-25] MEDS: CYANOCOBALAMIN (B-12) 100 MCG TABLET PO SCH (08:48)
[2024-08-25] MEDS: ASPIRIN 81 MG ECTAB PO SCH (08:48)
[2024-08-25] MEDS: ADVANCED PROBIOTIC 625 MG CAPSULE PO SCH (08:48)
[2024-08-25] MEDS: TAMSULOSIN HCL 0.4 MG CAP PO SCH (08:48)
[2024-08-25] MEDS: dexAMETHasone 6 MG in SYRINGE 0 ML IV SCH (08:51)
[2024-08-25] MEDS: MULTIVITAMIN CHEWABLE TAB PO SCH (08:51)
[2024-08-25] MEDS ORDERED: NON-FORMULARY MEDICATION (Potassium Chloride 10 mEq tablet,ER particles/crystals) PO SCH (09:00)
[2024-08-25] MEDS: LANTUS PER UNIT CHARGE SC SCH (09:07)
--- NOTE | 2024-08-25 09:28 | Pharmacy Report ---
Pharmacy Glycemic Short Note 2 - Date of Service August 25, 2024 - Glycemic Short BSG Results (Last 24 hours): 08/24/24 08/24/24 08/24/24 11:45 14:14 15:39 Glucose 224 H POC Glucose 206 H 230 H 08/24/24 08/24/24 08/25/24 16:24 20:33 07:56 Glucose POC Glucose 234 H 207 H 130 H 08/25/24 08:09 Glucose 128 H POC Glucose OUTPATIENT ANTIDIABETIC REGIMEN: * Lantus 15 units SQ HS * Metformin 1000mg PO BID * A1c 8% 07/22/24 ASSESSMENT: 08/25/24: * Blood sugars poorly controlled postoperatively yesterday, ranging 206-234 mg/dL w/ fasting blood sugar of 130 mg/dL this morning * Will give ~0.4 unit/kg of basal with dexamethasone today and tighten Novolog parameters 08/24/24: * 79 yo M, s/p spinal surgery, type 2 DM, blood sugars increasing d/t IV Steroids given, patient to continue on Dexamethasone 6mg daily x 3 days. * Basal bolus insulin and titrate to goal blood sugar. PLAN FOR INPATIENT GLYCEMIC CONTROL: * Hold outpatient oral diabetes medications * Basal insulin * Lantus 35 units SC daily with IV dexamethasone * Bolus insulin * NovoLog per scale ACHS or Q6hrs while NPO * Goal Range: Low 110 mg/dL - High 140 mg/dL * Correction Factor: 15 mg/dL/unit * Nutritional / Prandial insulin per carb ratio of 1 unit per 5 grams CHO consumed
[2024-08-25] MEDS: METOPROLOL SUCC 25MG EXT REL TAB PO SCH (11:19)
--- NOTE | 2024-08-25 12:35 | Orthopedic Progress Note ---
Date of Service August 25, 2024 Assessment & Plan (1) Two-level lumbosacral spondylosis with radiculopathy: Plan: At this time we will continue physical therapy monitor his [facility] output consider possible rehab placement. Admission and Anticipated Discharge Date Admission Date: August 24, 2024 Subjective Back pain controlled leg pain markedly improved Physical Exam Physical Exam: Patient is currently in bed. Family at bedside. Extra-strength testing. Results & Data Vital Signs (Past 12 Hours) Vital Signs Temp Pulse Pulse Resp BP Pulse Ox O2 Del Method 08/25/24 11:39 96/53 L 93 Nasal Cannula 08/25/24 11:00 36.3 C L 78 18 101/45 L 90 Nasal Cannula 08/25/24 07:45 Nasal Cannula 08/25/24 07:36 36.4 C L 72 16 104/56 L 94 Nasal Cannula 08/25/24 03:00 36.4 C L 63 20 113/48 L 94 Nasal Cannula O2 Flow Rate 08/25/24 11:39 3 08/25/24 11:00 3 08/25/24 07:45 2 08/25/24 07:36 3 08/25/24 03:00 3 Queries Orthopedic Spine Acute Posthemorrhagic Anemia: Yes
--- NOTE | 2024-08-25 15:16 | Hospitalist Progress Note ---
Date of Service August 25, 2024 Assessment & Plan (1) Postoperative hypoxia: (2) Postoperative hypotension: (3) Two-level lumbosacral spondylosis with radiculopathy: (4) CAD (coronary artery disease): (5) Chronic obstructive pulmonary disease: (6) Diabetes mellitus, type 2: Plan 79 yr old M who has a significant PMH of CAD, T2DM, HTN, HLD, diabetic polyneuropathy, COPD, Barretts esophagus, BPH, RLS, Chronic low back pain hx of of esophageal cancer s/p ablation and depression who presents to elective procedure by Dr. Polo. #S/p Lumbar decompression/fusion by Dr. Polo POD #1 #Acute blood loss anemia EBL 900ml, tolerated procedure well. PreOp Hb 14.1, Post op Hb 10.8, pt denies lightheadedness/palpitation/chest pain -- no indication for blood transfusion now. Pt reported to have large emesis prior to extubation, he admits to strict NPO after midnight pain/wound management per ortho DVT Px, activity and therapy as per ortho #Post operative hypoxia #COPD - remote hx of smoking quit in his 40s reported large emesis prior to extubation lungs sound clear, hx of COPD continue O2 supplementation, currently on 3L, goal 88-92% c/w duoneb prn, home breo now CXR w/ low lung volumes and bibasilar opacities, continue to monitor for development of aspiration PNA in next 48hrs, repeat cxr in AM if no improvement in O2 need encouraged incentive spirometry, currently monitor off of antibiotic, pt has been afebrile. #Post op hypotension SBP 80s-90s, suspect volume down s/p ivf, lactate improved. encourage po intake. ivf if bp is low Cautious use of opiates pain meds. #T2DM glycemic pharmacy consulted, a1c 8.0 in june 2024 hold metformin, lantus/novolog per protocol #CAD/HTN/HLD: on asa, metoprolol #Barretts esophagus/hx of eosphageal ca s/p ablation: cont PPI #Diabetic Foot Ulcer, Right, POA, stage II: consult wound care for dressing recs #DVT ppx: per primary PCP: Dr. Barros FULL CODE Dispo: per primary Admission and Anticipated Discharge Date Admission Date: August 24, 2024 Subjective Patient was seen and examined at bedside. patient reports chronic cough, denies any increase in his frequency of the cough or sputum production. Patient reports BLE radicular signs and symptoms improvement, reports operative site pain under control. Patient denies chest pain/lightheadedness/dizziness. Physical Exam Physical Exam: Constitutional: WD/WN, NAD, pleasant, conversing easily, [place], Head: Normocephalic, Atraumatic Eyes: PERRL, conjunctivae normal, anicteric sclerae ENMT: external ear and nose normal, oropharynx normal Neck: trachea midline, no thyromegaly normal visual inspection Respiratory: normal respiratory effort, lungs clear to auscultation, no wheeze, rales, rhonchi. Normal insp/exp effort, no accessory muscle use Cardiovascular: RRR, no murmur, no edema Vessels: no JVD or carotid bruit Chest: normal inspection of chest Abdomen: normal bowel sounds, soft, nontender, no hepatosplenomegaly Musculoskeletal: no cyanosis or clubbing, extremities motor strength 5/5 Skin: + R ventral diabetic foot ulcer, no rashes, warm and dry normal turgor Neurologic: PERRL, EOMI, accommodation nl, no face palsy, no dysarthria CN's II-XI intact bilaterally and moves all extremities Psychiatric: A+Ox3, euthymic affect Lymphatic: no cervical or axillary lymphadenopathy : deferred low back dressing c/d/i. Results & Data Results & Data Vital Signs (Past 12 Hours) Vital Signs Temp Pulse Pulse Resp BP Pulse Ox O2 Del Method 08/25/24 11:39 96/53 L 93 Nasal Cannula 08/25/24 11:00 36.3 C L 78 18 101/45 L 90 Nasal Cannula 08/25/24 07:45 Nasal Cannula 08/25/24 07:36 36.4 C L 72 16 104/56 L 94 Nasal Cannula O2 Flow Rate 08/25/24 11:39 3 08/25/24 11:00 3 08/25/24 07:45 2 08/25/24 07:36 3
[2024-08-26 07:00] LABS: Hematocrit (blood only) 30.9 % (42.0-52.0); Hemoglobin 10.5 g/dl (14.0-18.0); Mean Corpuscular Hemoglobin 30.6 pg (25.0-34.0); Mean Corpuscular Volume 90.1 fL (80.0-100.0); Mean Platelet Volume 9.8 fL (9.4-12.4); Platelet Count 172 K/uL (130-400); RDW Coefficient of Variation 14.9 % (11.5-14.5); RDW Standard Deviation 48.4 fL (36.4-46.3); Red Blood Count 3.43 M/uL (4.70-6.10); White Blood Count 9.95 K/ul (4.8-10.8)
[2024-08-26 07:22] LABS: Calcium 9.4 mg/dl (8.6-10.3); Creatinine Clr Calc Pharmacy 68.2 ml/min; Potassium 4.7 mmol/L (3.5-5.1)
--- NOTE | 2024-08-26 08:41 | Orthopedic Progress Note ---
Date of Service August 26, 2024 Assessment & Plan (1) Two-level lumbosacral spondylosis with radiculopathy: Plan: We will continue physical therapy daily monitor his CHACE output hopefully will be candidate for rehab in the next few days. Admission and Anticipated Discharge Date Admission Date: August 24, 2024 Subjective Patient's back is controlled leg symptoms improved he is tolerating physical therapy Physical Exam Physical Exam: On exam he is good strength testing. Appears comfortable Results & Data Vital Signs (Past 12 Hours) Vital Signs Temp Pulse Resp BP BP Pulse Ox O2 Del Method 08/26/24 07:37 36.5 C 72 20 134/64 93 Nasal Cannula 08/25/24 21:55 36.9 C 70 18 125/49 L 95 Nasal Cannula O2 Flow Rate 08/26/24 07:37 3 08/25/24 21:55 3 Queries Orthopedic Spine Acute Posthemorrhagic Anemia: Yes
--- NOTE | 2024-08-26 09:24 | XRay Report ---
XR chest 1V portable CLINICAL HISTORY: fu xr for hypoxia, ro aspiration pna COMPARISON STUDY: 08/24/2024 FINDINGS: Single view portable chest demonstrates the bibasilar airspace opacities have significantly cleared since the prior study. Lung volumes remain low. The right diaphragm remains slightly elevate d. No focal lesions are depicted elsewhere. The heart and pulmonary vascularity are unremarkable IMPRESSION: No acute process identified on the present study. ACT 112: Negative or not required by law. Electronically signed by: Amber Blas M.D. 08/26/2024 9:23 AM
[2024-08-26] MEDS: LANTUS PER UNIT CHARGE SC SCH ×2 (09:44→21:29)
[2024-08-26] MEDS: oxyCODONE HCL IR 5 MG TAB (IMMEDIATE RELEASE) PO PRN (12:39)
--- NOTE | 2024-08-26 13:09 | Podiatry Consultation ---
Date of Consultation August 26, 2024 Assessment & Plan (1) Diabetic ulcer of right foot associated with diabetes mellitus due to underlying condition, with muscle involvement without evidence of necrosis: Plan Diabetic ulcer right plantar foot subfifth metatarsal head: - Order: X-ray right foot 3 views. 08/26/2024: IMPRESSION: No radiographic evidence of osteomyelitis. - Wound debrided, flushed, packed and redressed as detailed in procedure note below. - Order dressing change right foot once daily. Remove packing, flushed wound with normal sterile saline, gently pack with quarter inch iodoform packing gauze, dressed with a bordered foam dressing. - Consult orthotics for high tide Cam walker with offloading for fifth metatarsal wound right. Thank you for consulting podiatry to aid in the care of this patient. Will continue to monitor closely while he remains in house. Patient plans to follow- up with Dr. Stallworth for ongoing wound care and monitoring following discharge. Surgical Excisional Debridement: Indication:Removal of necrotic tissue to promote healing Pre-op diagnosis: Diabetic ulcer right foot subfifth metatarsal head Post-op diagnosis: Same Procedure: Surgical excisional debridement diabetic ulcer right foot Surgeon: Ashok Martines DPM Anesthesia: None Bleeding:Minimal Disposition: Tolerated well Procedure: Informed consent obtained, Time Out taken. Patient understands and agrees to procedure. Excisional debridement was carried out of diabetic ulcer right foot consisting of hyperkeratotic slough fibrotic and subcutaneous tissue was carried out utilizing a curette and 15 blade. Anesthesia-none. Patient tolerated the procedure well. Bleeding-minimal. Controlled with-direct pressure. Post-debridement measurements: 1.0 x 0.8 x 1.0] cm. A total of 0.8 cm2 were debrided. History of Present Illness Reason for Consultation: Diabetic ulcer right heel Attending Physician: Vahe Polo DO History of Present Illness 79-year-old male past medical history significant for type 2 diabetes with diabetic peripheral neuropathy, right diabetic heel wound present on admission, coronary artery disease, hypertension, hyperlipidemia, COPD, Alberto's esophagus, BPH, RLS, depression, low back pain, history of esophageal cancer status post ablation. Admitted status post lumbar decompression and fusion by Dr. Polo 08/25/2024. Patient tolerated procedure well. EBL for procedure 900 mL. Did not require transfusion. Plan for discharge to rehab in the next few days. Patient reports right subfifth metatarsal head wound for several weeks. Denies history of infection to the right foot or treatment with antibiotics. He has been trimming the callus himself at home, cleansing with peroxide and alcohol and dressing with antibiotic ointment and a Band-Aid. He is seen Dr. Basim Arriaga from [facility] for evaluation and debridement. Denies any pain to the right foot. Reports bilateral diabetic peripheral neuropathy in the feet. Allergies Allergy/AdvReac Type Severity Reaction Status Date / Time No Known Allergies Allergy Verified 08/24/24 06:46 Home Medications Medication Instructions Recorded Confirmed Type gabapentin 300 mg capsule 600 mg PO BID 12/29/17 08/24/24 History metformin 1,000 mg tablet 1,000 mg PO BIDM 12/29/17 08/24/24 History multivit with minerals-iron 18 1 tab PO QAM 12/29/17 08/24/24 History mg-folic ac 400 mcg-vit K 25 mcg tablet (Multi-Day Plus Minerals) pantoprazole 40 mg tablet,delayed 40 mg PO BID 12/29/17 08/24/24 History release (Protonix) sertraline 50 mg tablet 50 mg PO HS 12/29/17 08/24/24 History tamsulosin 0.4 mg capsule 0.8 mg PO QAM 12/29/17 08/24/24 History insulin glargine 100 unit/mL 15 unit subcut HS 07/01/19 08/24/24 History subcutaneous solution (Lantus U-100 Insulin) rosuvastatin 40 mg tablet 40 mg PO HS 01/17/21 08/24/24 History cyanocobalamin (vitamin B-12) 100 100 mcg PO QAM 10/06/21 08/24/24 History mcg tablet (Vitamin B-12) fluticasone 250 mcg-salmeterol 50 1 inh inhalation BID 10/06/21 08/24/24 History mcg/dose blistr powdr for inhalation (Advair Diskus) metoprolol succinate 25 mg 12.5 mg PO QAM 10/06/21 08/24/24 History tablet,extended release 24 hr aspirin 81 mg tablet,delayed 81 mg PO QAM 01/06/23 08/24/24 History release (Adult Aspirin Regimen) acetaminophen 325 mg tablet 650 mg PO Q6H PRN Pain 10/05/23 08/24/24 History (Tylenol) amoxicillin 500 mg capsule 2,000 mg PO DIRECTED PRN 1 HR 10/05/23 08/24/24 History PRIOR TO DENTAL PROCEDURES cholecalciferol (vitamin D3) 50 50 mcg PO BID 10/05/23 08/24/24 History mcg (2,000 unit) capsule (Vitamin D3) dicyclomine 10 mg capsule 10 mg PO TID PRN ABD PAIN 10/05/23 08/24/24 History latanoprost 0.005 % eye drops 1 drp OPB HS 10/05/23 08/24/24 History magnesium oxide 400 mg (241.3 mg 400 mg PO QAM 10/05/23 08/24/24 History magnesium) tablet (MgO) potassium chloride 10 mEq 5 meq PO QAM 10/05/23 08/24/24 History tablet,extended release(part/cryst) pramipexole 0.25 mg tablet 0.25 mg PO HS 10/05/23 08/24/24 History psyllium 1 packet PO QAM 10/05/23 08/24/24 History tramadol 50 mg tablet 50 mg PO Q6H PRN Pain 10/05/23 08/24/24 History Lactobacillus acidophilus 250 500 mmu cells (2 x 250 million 10/08/23 08/24/24 Rx million cell capsule (Probiotic cell) PO DAILY #60 caps Acidophilus) ibuprofen 200 mg tablet 200 mg PO Q6H PRN Pain 07/14/24 08/24/24 History oxycodone 5 mg tablet 5 mg PO Q6H PRN pain #30 tabs 08/25/24 Rx tramadol 50 mg tablet 50 mg PO Q6H PRN pain, moderate 08/25/24 Rx #30 tabs Patient History Medical History History of blood transfusion during diverticulitis History of diverticulitis last episode 4 years ago Hx of myocardial infarction remote CAD (coronary artery disease) follows with Dr. House Diabetes mellitus, type 2 HTN (hypertension) controlled, stable per pt COPD (chronic obstructive pulmonary disease) no res inh use per pt Depression with anxiety Alberto's esophagus Poor historian BPH (benign prostatic hyperplasia) Hx of Clostridium difficile infection (~2021) Temporomandibular joint disorder occasional locking-last occurred several weeks ago HLD (hyperlipidemia) Restless leg syndrome Diabetic neuropathy feet Surgical History History of tooth extraction History of tonsillectomy Hx of inguinal hernia repair History of total knee replacement bilat History of cholecystectomy Hx of total shoulder replacement bilat Squamous cell carcinoma of nose removed History of cardiac cath Remote history of, mild, nonobstructive CAD noted History of cystoscopy with stent History of carpal tunnel release right History of cataract surgery bilat History of back surgery pt unsure of level History of colonoscopy History of esophagogastroduodenoscopy (EGD) multiple Family History Sister Family history of diabetes mellitus Brother Family history of diabetes mellitus Uncle Family history of diabetes mellitus Father Family history of diabetes mellitus Social History Smoking Status: Former smoker Tobacco Type: Cigarettes Smoking End Date: 1989; Second Hand Exposure: No; Do You Dip or Chew Tobacco: No; Tobacco Cessation Education Requested by Patient: No Hx Alcohol Use: Yes Alcohol type: beer, wine and hard liquor Hx Substance Use: No Preferred Language: Malagasy Communication Ability: Effective 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 No signs of acute distress present. CV: Extremities: No cyanosis or edema. Capillary refill time is less than 2 seconds all digits of the bilateral foot. Posterior tibial and dorsalis pedis pulses are palpable bilateral. Lymph: No palpable or visible regional lymphadenopathy. Skin: Diabetic ulcer subfifth metatarsal head right foot. Neuro: Loss of protective sensation bilateral foot. Psych: Mood/Affect: Mood is normal. Affect is normal. Cognition: Orientation is intact to person, place and time. Focused lower extremity musculoskeletal exam: Leg: No pain with compression of the calf muscle. Ankles: Normal to inspection and palpation. No swelling bilaterally. No tenderness bilaterally. Motor strength is intact. Range of motion pain-free and unlimited. Feet: Normal to inspection and palpation. No obvious instability. Motor strength is intact. Range of motion pain-free and unlimited. Ulceration to the right foot subfifth metatarsal head with exposed tendon joint capsule. No signs of local soft tissue infection. Scant active serous drainage. Nonviable subc utaneous tissue to the chawla of the wound and hyperkeratotic tissue circumferentially with mild blood tingeing. Results & Data Vital Signs (Past 12 Hours) Vital Signs Temp Pulse Resp BP Pulse Ox O2 Del Method O2 Flow Rate 08/26/24 08:05 Nasal Cannula 3 08/26/24 07:37 36.5 C 72 20 134/64 93 Nasal Cannula 3 PG Care Time/CCT Total # of Minutes Spent Total Time Spent with Patient: Total time spent is greater than 50% in coordination of care (as documented) at patient's floor/unit and/or counseling patient: [place] [address] INT INP/OBS CARE 2/55MIN Patient Type New Diagnoses Diabetic ulcer of right foot associated with diabetes mellitus due to underlying condition, with muscle involvement without evidence of necrosis E08.621; L97.515 CPT Codes Debride Skin/Tissue - 03342 ([id number])
--- NOTE | 2024-08-26 14:13 | XRay Report ---
XR foot RT min 3V routine CLINICAL HISTORY: Right heel wound probes to bone COMPARISON: None FINDINGS: 3 views of the right foot demonstrate soft tissue swelling lateral to the fifth metatarsop halangeal joint with no associated bony lesion. There is no helical or calcaneal lesion identified ra diographically. There are moderate degenerative changes at the first metatarsophalangeal joint.There is a soft tissue lesion near the metatarsal heads seen on the lateral view. There is no associated os seous lesion or periosteal reaction. IMPRESSION: No radiographic evidence of osteomyelitis as discussed above. ACT 112: Negative or not required by law. Electronically signed by: Amber Blas M.D. 08/26/2024 2:11 PM
--- NOTE | 2024-08-26 15:44 | Hospitalist Progress Note ---
Date of Service August 26, 2024 Assessment & Plan (1) Postoperative hypoxia: (2) Postoperative hypotension: (3) Two-level lumbosacral spondylosis with radiculopathy: (4) CAD (coronary artery disease): (5) Chronic obstructive pulmonary disease: (6) Diabetes mellitus, type 2: Plan 79 yr old M who has a significant PMH of CAD, T2DM, HTN, HLD, diabetic polyneuropathy, COPD, Barretts esophagus, BPH, RLS, Chronic low back pain hx of of esophageal cancer s/p ablation and depression who presents to elective procedure by Dr. Polo. #S/p Lumbar decompression/fusion by Dr. Polo POD #2 #Acute blood loss anemia EBL 900ml, tolerated procedure well. PreOp Hb 14.1, Post op Hb 10.8, pt denies lightheadedness/palpitation/chest pain -- no indication for blood transfusion now. Pt reported to have large emesis prior to extubation, he admits to strict NPO after midnight pain/wound management per ortho DVT Px, activity and therapy as per ortho #Post operative hypoxia #COPD - remote hx of smoking quit in his 40s reported large emesis prior to extubation lungs sound clear, hx of COPD continue O2 supplementation, currently on 3L, goal 88-92% c/w duoneb prn, home breo now CXR w/ low lung volumes and bibasilar opacities, continue to monitor for development of aspiration PNA in next 48hrs, repeat cxr today 5/ w/ no concern for pna. encouraged incentive spirometry, currently monitor off of antibiotic, pt has been afebrile. Vitals has been stable. likely will need 2 step test on dc. #Post op hypotension SBP 80s-90s, suspect volume down s/p ivf, lactate improved, BP improved. encourage po intake. Cautious use of opiates pain meds. #T2DM glycemic pharmacy consulted, a1c 8.0 in june 2024 hold metformin, lantus/novolog per protocol #CAD/HTN/HLD: on asa, metoprolol #Barretts esophagus/hx of eosphageal ca s/p ablation: cont PPI #Diabetic Foot Ulcer, Right, POA, stage II: WOCN evaled, recommended podiatry eval. Podiatry on board, offloading boots, f/u w/ podiatry on dc. #DVT ppx: per primary PCP: Dr. Barros FULL CODE Dispo: per primary Admission and Anticipated Discharge Date Admission Date: August 24, 2024 Subjective Patient was seen and examined at bedside. patient reports chronic cough, denies any increase in his frequency of the cough or sputum production. Per RN, his cough and sputum are improving today. Patient reports BLE radicular signs and symptoms improvement, reports operative site pain under control. Patient denies chest pain/lightheadedness/dizziness. Physical Exam Physical Exam: Constitutional: WD/WN, NAD, pleasant, conversing easily, [place], Head: Normocephalic, Atraumatic Eyes: PERRL, conjunctivae normal, anicteric sclerae ENMT: external ear and nose normal, oropharynx normal Neck: trachea midline, no thyromegaly normal visual inspection Respiratory: normal respiratory effort, lungs clear to auscultation, no wheeze, rales, rhonchi. Normal insp/exp effort, no accessory muscle use Cardiovascular: RRR, no murmur, no edema Vessels: no JVD or carotid bruit Chest: normal inspection of chest Abdomen: normal bowel sounds, soft, nontender, no hepatosplenomegaly Musculoskeletal: no cyanosis or clubbing, extremities motor strength 5/5 Skin: + R ventral diabetic foot ulcer, no rashes, warm and dry normal turgor Neurologic: PERRL, EOMI, accommodation nl, no face palsy, no dysarthria CN's II-XI intact bilaterally and moves all extremities Psychiatric: A+Ox3, euthymic affect Lymphatic: no cervical or axillary lymphadenopathy : deferred low back dressing c/d/i. Results & Data Results & Data Vital Signs (Past 12 Hours) Vital Signs Temp Pulse Resp BP BP Pulse Ox O2 Del Method 08/26/24 14:53 87 L Room Air 08/26/24 14:25 36.6 C 68 16 115/57 L 90 Room Air 08/26/24 13:48 92 Nasal Cannula 08/26/24 13:48 83 L Room Air 08/26/24 08:05 Nasal Cannula 08/26/24 07:37 36.5 C 72 20 134/64 93 Nasal Cannula O2 Flow Rate 08/26/24 14:53 08/26/24 14:25 08/26/24 13:48 3 08/26/24 13:48 08/26/24 08:05 3 08/26/24 07:37 3
[2024-08-26] MEDS: traMADol HCL 50 MG TABLET PO PRN (21:26)
[2024-08-27 07:39] LABS: Hematocrit (blood only) 26.5 % (42.0-52.0)
[2024-08-27] MEDS: ALBUT/IPRATROP 3MG/0.5MG NEB 3 ML VIAL NEB PRN (08:39)
--- NOTE | 2024-08-27 10:10 | Orthopedic Progress Note ---
Date of Service August 27, 2024 Assessment & Plan (1) Two-level lumbosacral spondylosis with radiculopathy: Plan: Patient is going to continue with physical therapy. He is safe for discharge today if rehab bed available. Admission and Anticipated Discharge Date Admission Date: August 24, 2024 Subjective Patient's back pain is controlled leg symptoms are improved. He is tolerating physical therapy. Physical Exam Physical Exam: Patient is up and ambulating. Has good strength and testing. Results & Data Vital Signs (Past 12 Hours) Vital Signs Temp Pulse Pulse Resp BP Pulse Ox O2 Del Method 08/27/24 08:39 68 16 88 L Nasal Cannula 08/27/24 07:45 36.3 C L 62 15 153/63 H 95 Nasal Cannula 08/27/24 07:23 36.3 C L 62 15 153/63 H 86 L Nasal Cannula O2 Flow Rate 08/27/24 08:39 2 08/27/24 07:45 08/27/24 07:23 Queries Orthopedic Spine Acute Posthemorrhagic Anemia: Yes
--- NOTE | 2024-08-27 10:52 | Pharmacy Report ---
Pharmacy Glycemic Short Note 2 - Date of Service August 27, 2024 - Glycemic Short BSG Results (Last 24 hours): 08/26/24 08/26/24 08/26/24 11:19 16:29 20:12 POC Glucose 163 H 105 H 170 H 08/27/24 07:44 POC Glucose 158 H OUTPATIENT ANTIDIABETIC REGIMEN: * Lantus 15 units SQ HS * Metformin 1000mg PO BID * A1c 8% 07/22/24 ASSESSMENT: 08/27/24: * BSGs have been reasonably well-controlled while receiving high-dose IV steroids. * Last dose of IV DXM given this morning. * No changes to insulin regimen today. Will likely need to reduce Lantus dose tomorrow and loosen Novolog parameters as the steroid effects lessen. * Pharmacy will continue to follow and adjust insulin regimen as indicated. 08/25/24: * Blood sugars poorly controlled postoperatively yesterday, ranging 206-234 mg/dL w/ fasting blood sugar of 130 mg/dL this morning * Will give ~0.4 unit/kg of basal with dexamethasone today and tighten Novolog parameters 08/24/24: * 79 yo M, s/p spinal surgery, type 2 DM, blood sugars increasing d/t IV Stero ids given, patient to continue on Dexamethasone 6mg daily x 3 days. * Basal bolus insulin and titrate to goal blood sugar. PLAN FOR INPATIENT GLYCEMIC CONTROL: * Hold outpatient oral diabetes medications * Basal insulin * Lantus 40 units SC daily with IV dexamethasone * Will re-evaluate 08/28, as no steroids are scheduled to continue beyond 08/27 * Bolus insulin * NovoLog per scale ACHS or Q6hrs while NPO * Goal Range: Low 110 mg/dL - High 140 mg/dL * Correction Factor: 15 mg/dL/unit * Nutritional / Prandial insulin per carb ratio of 1 unit per 5 grams CHO consumed
[2024-08-27 14:23] VITALS: BP 167/65; PULSE 67; RESP 16; TEMP 97.9; O2SAT 92
--- NOTE | 2024-08-27 14:28 | Hospitalist Progress Note ---
Date of Service August 27, 2024 Assessment & Plan (1) Postoperative hypoxia: (2) Postoperative hypotension: (3) Two-level lumbosacral spondylosis with radiculopathy: (4) CAD (coronary artery disease): (5) Chronic obstructive pulmonary disease: (6) Diabetes mellitus, type 2: Plan 79 yr old M who has a significant PMH of CAD, T2DM, HTN, HLD, diabetic polyneuropathy, COPD, Barretts esophagus, BPH, RLS, Chronic low back pain hx of of esophageal cancer s/p ablation and depression who presents to elective procedure by Dr. Polo. #S/p Lumbar decompression/fusion by Dr. Polo POD #2 #Acute blood loss anemia EBL 900ml, tolerated procedure well. PreOp Hb 14.1, Post op Hb 10.8, pt denies lightheadedness/palpitation/chest pain -- no indication for blood transfusion now. Pt reported to have large emesis prior to extubation, he admits to strict NPO after midnight pain/wound management per ortho DVT Px, activity and therapy as per ortho #Post operative hypoxia #COPD - remote hx of smoking quit in his 40s reported large emesis prior to extubation lungs sound clear, hx of COPD continue O2 supplementation, currently on 3L, goal 88-92% c/w duoneb prn, home breo now CXR w/ low lung volumes and bibasilar opacities, continue to monitor for development of aspiration PNA in next 48hrs, repeat cxr today 5/ w/ no concern for pna. encouraged incentive spirometry, currently monitor off of antibiotic, pt has been afebrile. Vitals has been stable. likely will need 2 step test on dc from rehab. #Post op hypotension SBP 80s-90s, suspect volume down s/p ivf, lactate improved, BP improved. encourage po intake. Cautious use of opiates pain meds. #T2DM glycemic pharmacy consulted, a1c 8.0 in june 2024 hold metformin, lantus/novolog per protocol #CAD/HTN/HLD: on asa, metoprolol #Barretts esophagus/hx of eosphageal ca s/p ablation: cont PPI #Diabetic Foot Ulcer, Right, POA, stage II: WOCN evaled, recommended podiatry eval. Podiatry on board, offloading boots, f/u w/ podiatry on dc. #DVT ppx: per primary PCP: Dr. Barros FULL CODE Dispo: per primary Admission and Anticipated Discharge Date Admission Date: August 24, 2024 Subjective Patient was seen and examined at bedside. patient reports chronic cough, denies any increase in his frequency of the cough or sputum production. Patient reports BLE radicular signs and symptoms improvement, reports operative site pain under control. Patient denies chest pain/lightheadedness/dizziness. Pt remains afebrile, vitals remain stable off of antibiotics. Physical Exam Physical Exam: Constitutional: WD/WN, NAD, pleasant, conversing easily, [place], Head: Normocephalic, Atraumatic Eyes: PERRL, conjunctivae normal, anicteric sclerae ENMT: external ear and nose normal, oropharynx normal Neck: trachea midline, no thyromegaly normal visual inspection Respiratory: normal respiratory effort, lungs clear to auscultation, no wheeze, rales, rhonchi. Normal insp/exp effort, no accessory muscle use Cardiovascular: RRR, no murmur, no edema Vessels: no JVD or carotid bruit Chest: normal inspection of chest Abdomen: normal bowel sounds, soft, nontender, no hepatosplenomegaly Musculoskeletal: no cyanosis or clubbing, extremities motor strength 5/5 Skin: + R ventral diabetic foot ulcer, no rashes, warm and dry normal turgor Neurologic: PERRL, EOMI, accommodation nl, no face palsy, no dysarthria CN's II-XI intact bilaterally and moves all extremities Psychiatric: A+Ox3, euthymic affect Lymphatic: no cervical or axillary lymphadenopathy : deferred low back dressing c/d/i. Results & Data Results & Data Vital Signs (Past 12 Hours) Vital Signs Temp Pulse Pulse Pulse Resp BP BP 08/27/24 14:20 36.6 C 67 16 167/65 H 08/27/24 14:17 36.3 C L 65 62 65 15 120/55 L 134/64 08/27/24 13:07 36.3 C L 65 15 120/55 L 08/27/24 08:39 68 16 08/27/24 08:00 08/27/24 07:45 08/27/24 07:23 36.3 C L 62 15 153/63 H Pulse Ox O2 Del Method O2 Flow Rate 08/27/24 14:20 92 Nasal Cannula 2 08/27/24 14:17 95 08/27/24 13:07 95 Nasal Cannula 08/27/24 08:39 88 L Nasal Cannula 2 08/27/24 08:00 Nasal Cannula 3 08/27/24 07:45 95 Nasal Cannula 08/27/24 07:23 86 L Nasal Cannula
--- NOTE | 2024-08-31 10:20 | Discharge Summary ---
Date of Service August 31, 2024 Admission HPI Per Admitting Provider This is a 79-year-old male who presents with persistent back and leg pain after failing course of nonoperative care is here for surgical intervention. Admission Exam (Per Admitting) Constitutional WD/WN, vitals as above Eyes normal visual wood by confrontation ENMT external ear and nose normal, oropharynx normal Neck normal visual inspection Respiratory normal respiratory effort Cardiovascular Extremities: normal capillary refill Gastrointestinal (Abdomen) Inspection/Auscultation: abdomen normal to inspection Musculoskeletal Spine: + pain with thoraco-lumbar ROM Extremities: extremities normal to inspection and strength 5/5 throughout Skin no rashes, warm and dry Neurologic normal touch/pain/proprioception and moves all extremities Psychiatric A+Ox3, euthymic affect Eye Contact: good eye contact Discharge Data Consultations 08/24/24 14:20 Consult Hospitalist Routine 08/26/24 11:47 Consult Podiatry Routine Procedures Performed Operation Date: 08/24/24 07:45 Actual Procedures p L2-S1 Decompression and Fusion, Spinal Cord Monitoring(Not Applicable) - Vahe Polo, Hospital Course (1) Two-level lumbosacral spondylosis with radiculopathy: Radu underwent an L2-S1 decompression and fusion with Dr. Polo on 08/24. Just prior to extubation he had vomiting. He has some hypoxia and hypotension postop. Chest x-ray showed no acute distress. It was felt to be due to volume depletion. He may progress in physical therapy. Left values were stable. He was ultimately discharged to [facility] rehab August 2. Discharge Instructions ACTIVITY RECOMMENDATIONS: SELF CARE INSTRUCTIONS AFTER THORACIC/LUMBAR FUSIONS 1. You may walk to your tolerance. It is good exercise for your legs and back. Expect some back and intermittent leg aches and pains. 2. You may perform "counter-top" level activities (make a sandwich, kelli with a project, etc.). 3. No bending or lifting of more than 10 pounds or back twisting of any nature (roll like a log when turning in bed). 4. You may ride in a car for 20-30 minutes at a time. No driving until after your first visit with your doctor. 5. Frequent changes of position and restricting sitting to 30 minutes at a time will help limit the amount of back spasms and stiffness you may experience. 6. You may discontinue the use of ambulatory aids (cane, crutches, etc.) once your strength and confidence allow. 7. You may supervisor inspection and testing the shower and let water strike your incision when you arrive home at least once daily. Do not take a tub bath, sit in a hot tub or go into a swimming pool until after your first recheck in the office. 8. You may resume previous diet. SPECIAL CARE INSTRUCTIONS: VERY IMPORTANT TO READ AND REVIEW A. Your surgical incision has been closed with a cosmetic suture under the skin that will dissolve in about 6 weeks. In 14 days, you can use a pair of clean scissors and cut the suture that is left outside of the skin at the ends of your incision. 1. The small skin tapes can be removed 7 days after surgery if they have not fallen off by that point. 2. You may keep the wound open to air as much as possible to promote healing after post-op day number 5 unless told otherwise by your doctor. 3. If you think the wound looks like it is becoming infected (redness or worsening drainage) and/or you are experiencing fever, chill or worsening back pain and muscle spasms, contact the office so that we may evaluate you as soon as possible. B. Complications are uncommon, but please contact us if you have any signs or symptoms of: 1. wound infection (fever higher than 102.5 degrees F, redness, separation of wound, drainage, or increasing pain from the incision) 2. blood clots in legs (pain, swelling, redness and warmth in legs) 3. urinary tract infection (fever higher than 102.5 degrees F, burning upon urination or increased frequency of urination) 4. nerve problems (inability to walk on your toes or heels, numbness, loss of bowel or bladder control) 5. any other symptoms that concern you C. Please call the office at if you have any concerns or questions about your operation or recovery. D. No smoking! Smoking drastically decreases the chance of a solid fusion. E. Do not take any anti-inflammatory medications (Indocin, Advil, Motrin, Aspirin, Naprosyn, etc.) as these may inhibit the chance of a solid fusion. Tylenol is okay to take for pain. MANAGING PAIN AFTER SPINAL SURGERY 1. Narcotic medication is intended for short-term use and will be provided for surgical pain. Surgical pain usually lasts for a period of 4-6 weeks. Narcotic medication includes Percocet, Vicodin, Darvocet, Tylenol #3 or Lortab. 2. Longer-term pain is more appropriately treated with non-narcotic medication such as Tylenol ES. 3. Muscle spasm is not appropriately treated with narcotics. Muscle relaxers such as Soma, Flexeril or Skelaxin can be used along with Tylenol ES. 4. Remember that we all live with some "aches and pains". This is not unusual or uncommon after an injury or as we get older. a. Back pain is expected and may include muscle spasms for 4 to 6 weeks after surgery. The pain should gradually improve. If the pain worsens for no apparent reason, please contact the office. b. Intermittent leg pain may also be experienced and should not be concerned about unless it worsens for no apparent reason. If so, please contact the office. 5. We will provide appropriate medication within the normal guidelines of their prescribed use. We will also be very cautious and aware of potential abuse and extended duration of patients' medication needs. a. Pain medications are for your comfort and to assist with sleep and rest so that the tissue can heal. They are not provided in order to return to normal activity and should not be used through the day. To do so or worsening pain at night can result from ongoing tissue damage and development of tolerance to the prescribed medicine. 6. Please allow 2-3 days to process refills. Prescriptions will not be mailed but must be picked up at the office. FOLLOW UP VISIT: Keep your scheduled follow-up appointment. Any questions, please call the office at .
== END 2024-08-27 16:23 | DRG 427 ==
LOC: ASU 06:20 → 3W 11:26 → 3N 08-26 10:28
DX: M48.061 Spinal stenosis, lumbar region without neurogenic claudication; Z87.891 Personal history of nicotine dependence; R09.02 Hypoxemia; M43.16 Spondylolisthesis, lumbar region; Z79.84 Long term (current) use of oral hypoglycemic drugs; Z98.890 Other specified postprocedural states; N40.0 Benign prostatic hyperplasia without lower urinary tract symptoms; I25.10 Atherosclerotic heart disease of native coronary artery without angina pectoris; E11.42 Type 2 diabetes mellitus with diabetic polyneuropathy; I95.81 Postprocedural hypotension; Z79.4 Long term (current) use of insulin; D62 Acute posthemorrhagic anemia; J44.9 Chronic obstructive pulmonary disease, unspecified; L97.515 Non-pressure chronic ulcer of other part of right foot with muscle involvement without evidence of necrosis; L97.518 Non-pressure chronic ulcer of other part of right foot with other specified severity; E11.621 Type 2 diabetes mellitus with foot ulcer; Z85.01 Personal history of malignant neoplasm of esophagus; K22.70 Barrett's esophagus without dysplasia; M47.26 Other spondylosis with radiculopathy, lumbar region; G25.81 Restless legs syndrome